=== PATIENT | male | born 1975 | race Caucasian/White ===

== ENCOUNTER 2020-05-30 08:18 | Emergency (ER) | payer BC, SELFPAY ==
[2020-05-30 08:23] VITALS: BP 134/77; PULSE 100; RESP 20; TEMP 37.5; O2SAT 97; BMI 23.3
--- NOTE | 2020-05-30 08:44 | XR_ITS ---
EXAMINATION: XR CHEST CLINICAL INFORMATION: COVID+, shortness of breath COMPARISON: None TECHNIQUE: Portable upright AP x2 views of the chest are obtained. FINDINGS: There are scattered bilateral mid and lower zone groundglass opacities. There is no confluent lobar segmental airspace consolidation or effusion. Heart is within normal size. The vascularity is normal. The hilar and mediastinal contours and bony structures are unremarkable. XR/XR chest 1V IMPRESSION: Bilateral mid and lower zone groundglass opacities. Findings consistent with history COVID.
--- NOTE | 2020-05-30 09:44 | ED_ITS ---
HPI - URI/Sore Throat General Chief Complaint: Upper Respiratory Symptoms Stated Complaint: covid + Time Seen by Provider: 05/30/20 08:43 Source: patient Mode of arrival: ambulatory Limitations: no limitations History of Present Illness HPI Narrative: 45-year-old male presenting to the ED who is recently diagnosed with COVID approximately 3 days ago with persistent fevers up to 104 despite taking Motrin Tylenol every 3 hours alternating between the 2. Reports he has a dry cough and goes into a coughing fit. Denies any headaches, dizziness, neck pain, chest pain, shortness of breath, orthopnea, dyspnea on exertion, lower extremity edema, abdominal pain, nausea/vomiting/diarrhea or constipation or any other symptoms complaints or concerns at this time. Related Data Previous Rx's Medication Instructions Recorded acetaminophen [Tylenol Extra 1,000 mg PO Q6H PRN #14 tab 05/30/20 Strength] azithromycin See Rx Instructions .ROUTE 05/30/20 .COMPLEX #6 tab cefuroxime axetil 500 mg PO BID 7 Days #14 tab 05/30/20 cyclobenzaprine 10 mg PO TID PRN #10 tab 05/30/20 dexamethasone [Decadron] 12 mg PO DAILY #1 tab 05/30/20 ibuprofen 800 mg PO Q8H PRN #14 tab 05/30/20 Allergies Allergy/AdvReac Type Severity Reaction Status Date / Time No Known Allergies Allergy Verified 05/30/20 08:43 Review of Systems Review of Systems: Constitutional : + Fever, + Chills, + fatigue, + Malaise ENT/Mouth : No sore throat, No runny nose Eyes: No Discharge Cardiovascular : No Chest Pain, No SOB Respiratory : + Cough, No Sputum, No Wheezing, No Smoke Exposure, No Dyspnea Gastrointestinal : No Nausea, No Vomiting, No Diarrhea Genitourinary : No irregular bleeding, No Dysuria, No Urinary Frequency, No Hematuria, No Urinary Incontinence, No Urgency, No Flank Pain, Musculoskeletal : + Myalgia Skin : No rash Neuro : No Headache Yes all other systems are reviewed and are negative [facility] Past Medical History Attestation statement: The following information was validated with the patient. Social History Social History Advance Directives: No Advance Directives Information Provided: No Physical Exam Vital Signs: Vital Signs: Last Vital Signs Temp 99.5 F 05/30/20 08:23 Pulse 100 05/30/20 08:23 Resp 20 05/30/20 08:23 BP 134/77 05/30/20 08:23 Pulse Ox 97 05/30/20 08:23 Body Mass Index 23.3 vital signs have been reviewed as normal and appeared to be correct. Blood pressure normal. Heart rate normal. Respiration rate normal. Temperature normal. Oxygen saturation normal. Appearance: Alert. Oriented X3. No acute distress. Head: Normal external exam. Normocephalic. Atraumatic. Eyes: PERRLA. EOMI. Conjunctiva and sclera normal. Eyelids normal. ENT: EAC normal. TM's Normal. Pharynx normal. Uvula midline. Moist mucous membranes. No trismus noted. No drooling noted. No muffled voice noted. Neck: Normal inspection. Neck supple. FROM. No adenopathy. Thyroid Normal. No meningeal signs. CVS: Normal heart rate and rhythm. Heart sound normal. No murmurs noted. Pulses normal throughout. Respiratory: No respiratory distress. Painless inspiration. Breath sounds normal. No wheezes/rales/rhonchi noted. Chest nontender. No accessory muscle usage noted or decreased air movement noted. Back: Full range of motion noted. Skin: Skin warm and dry. Normal skin color. Normal skin turgor. No rashes/lesions/lacerations noted. Extremities: No lower extremity edema. Extremities exhibit normal range of motion. Extremities nontender. Neuro: Oriented X 3. No motor deficit. No sensory deficit. Reflexes normal. Course Course Course Narrative: Patient's oxygen saturation is at 97% on room air all other vitals are within normal limits. Patient is not in any acute respiratory distress or any other distress. Appears well. Chest x-ray revealed ground- glass opacities consistent with COVID pneumonia. Will DC home with antibiotics and instructions to return if any new or worsening symptoms and to monitor the patient's his pulse ox and to follow up with primary care provider. Patient understands agrees the plan. MDM - URI/Sore Throat Medical Records Attestation: I reviewed the patient's medical records. Imaging Data Chest x-ray: Attestation: I personally reviewed and interpreted this imaging study as follows: Radiologist's impression: FINDINGS: There are scattered bilateral mid and lower zone groundglass opacities. There is no confluent lobar segmental airspace consolidation or effusion. Heart is within normal size. The vascularity is normal. The hilar and mediastinal contours and bony structures are unremarkable. XR/XR chest 1V IMPRESSION: Bilateral mid and lower zone groundglass opacities. Findings consistent with history COVID. Discharge Plan Discharge Clinical Impression: Pneumonia due to COVID-19 virus Patient Disposition: Home, Self-Care Instructions: Pneumonia (ED), COVID-19 (Coronavirus Disease 2019) (ED) Additional Instructions: It is very important that you monitor your oxygen saturation normal is 90-100% on room air although you should be at 95-100% if you start to drop under 90% on room air is specially with walking he needs to come back to the emergency department otherwise take your antibiotics as prescribed alternate between Motrin and Tylenol every 3 hours and self isolate return if any new or worsening symptoms. At this time you will be okay for discharge. Please plan for self quarantine for up to 14 days. Do not expose yourself to others. You may not go to work. If testing does come back negative you may return to activities as long as you are no longer having any symptoms for at least 3 days. Please continue to follow cold instructions and wash your hands frequently. You may take Tylenol as directed on the bottle for pain or fever. Patient seen in the emergency department on 05/30/2020 and should be excused from work until negative test results AND until 72 hours without any symptoms AND at least 10 days have passed since symptoms first appeared or since last exposure to COVID-19 positive patient CDC Guidelines for home isolation: - Stay away from others - WEAR A MASK if you are sick AND STAY HOME - Cover your mouth and nose with a tissue when you cough or sneeze. Dispose of tissues in a lined trash can and wash your hands immediately with soap and water for at least 20 seconds. If soap and water are not available, clean hands with alcohol-based hand custom van converter that contains at least 60% alcohol. - Clean your hands often with soap and water for at least 20 seconds - Avoid touching your eyes, nose and mouth with unwashed hands - Do not share dishes, drinking glasses, cups, eating utensils, towels, or bedding with other people in your home. After using these items, wash them thoroughly with soap and water or put in the heating and blending supervisor. - Clean high-touch surfaces in your isolation area ( sick room and bathroom) every day; let a caregiver clean and disinfect high-touch surfaces in other areas of the home. Clean the area or item with soap and water or another detergent if it is dirty. Then, use a household disinfectant. - Limit contact with pets and animals: If you must care for a pet, wash your hands before and after interacting with them). Prescriptions: New azithromycin 250 mg tablet See Rx Instructions .ROUTE .COMPLEX Qty: 6 RF: 0 cefuroxime axetil 500 mg tablet 500 mg PO BID 7 Days Qty: 14 RF: 0 cyclobenzaprine 10 mg tablet 10 mg PO TID PRN (Reason: muscle spasm) Qty: 10 RF: 0 ibuprofen 800 mg tablet 800 mg PO Q8H PRN (Reason: pain) Qty: 14 RF: 0 dexamethasone [Decadron] 6 mg tablet 12 mg PO DAILY Qty: 1 RF: 0 acetaminophen [Tylenol Extra Strength] 500 mg tablet 1,000 mg PO Q6H PRN (Reason: fever or pain) Qty: 14 RF: 0 Referrals: Physician,None [Primary Care Provider] - 2 days (your pcp) Stand Alone Forms: Work/School Release Print Language: Namibian
== END 2020-05-30 10:31 | disposition home or self-care (01) ==
PROVIDERS: Emergency Provider Emergency Medicine
DX: U07.1 COVID-19 (principal); J12.82 Pneumonia due to coronavirus disease 2019
CPT/HCPCS: 71045; 99283

== ENCOUNTER 2020-07-31 07:25 | Outpatient (REF) | payer BC, SELFPAY ==
--- NOTE | ~2020-07-31 | XR_ITS ---
EXAMINATION: XR HAND, RIGHT CLINICAL INFORMATION: Personal history of colon 19 COMPARISON: None TECHNIQUE: PA, lateral, and oblique views of the right hand. FINDINGS: The bones and soft tissues are normal. No fracture. Alignment is anatomic. Joint spaces are maintained. No erosions or soft tissue calcifications. XR/XR hand RT min 3V IMPRESSION: Normal right hand.
--- NOTE | ~2020-07-31 | XR_ITS ---
EXAMINATION: XR KNEE, LEFT CLINICAL INFORMATION: Personal history of colon 19 COMPARISON: None TECHNIQUE: Four views of the left knee. FINDINGS: Trace joint effusion. The bones joints and soft tissues are otherwise normal. XR/XR knee LT 2V IMPRESSION: Trace joint effusion
--- NOTE | ~2020-07-31 | XR_ITS ---
EXAMINATION: XR CHEST CLINICAL INFORMATION: Personal history of Covid 19. COMPARISON: Prior chest May 2020 TECHNIQUE: 2 views of the chest were obtained. FINDINGS: No significant abnormality is noted involving the heart, lungs, mediastinum, bony thorax or soft tissues. XR/XR chest 2V IMPRESSION: No acute disease. The previously noted above opacities have cleared
[2020-07-31 11:22] LABS: MANUAL DIFF FLAG NO
[2020-07-31 11:38] LABS: Basophils Absolute Auto 0.1 X10*3/uL (0.0-0.2); Basophils Percent Auto 1.2 % (0-2); Eosinophils Absolute Auto 0.3 X10*3/uL (0.0-0.4); Eosinophils Percent Auto 3.9 % (0-4); Hematocrit 44.1 % (42-52); Hemoglobin 15.5 g/dl (14.0-18.0); Imm Gran Abs Auto 0.02 X10*3/uL (0.00-0.03); Imm Gran Pct Auto 0.3 % (0.0-0.4); Lymphocytes Absolute Auto 2.6 X10*3/uL (1.2-4.9); Lymphocytes Percent Auto 37.5 % (20-40); Mean Corpuscular HGB Conc 35.1 g/dl (31.0-36.0); Mean Corpuscular Hemoglobin 35.4 pg (27.0-33.0); Mean Corpuscular Volume 100.7 fL (80-98); Mean Platelet Volume 10.4 fL (9.4-12.4); Monocytes Absolute Auto 0.8 X10*3/uL (0.1-1.2); Monocytes Percent Auto 10.9 % (2-11); Neutrophils Absolute Auto 3.2 X10*3/uL (2.0-8.3); Neutrophils Percent Auto 46.2 % (45-73); Platelet Count 207 X10*3/uL (160-400); Red Blood Count 4.38 X10*6/uL (4.60-5.80); White Blood Count 6.9 X10*3/uL (4.8-10.8)
[2020-07-31 12:21] LABS: Alanine Aminotransferase 42 U/L (0-40); Albumin Level 4.5 g/dL (3.5-5.0); Alkaline Phosphatase 104 U/L (39-117); Anion Gap 12 (12-20); Aspartate Amino Transferase 28 U/L (5-37); Bilirubin Direct 0.4 mg/dL (0.0-0.5); Blood Urea Nitrogen 11 mg/dL (9-16); Carbon Dioxide 33 mmol/L (22-29); Chloride 100 mmol/L (96-108); Cholesterol 164 mg/dL; Estimated Glomerular Filt Rate > 60; Glucose Fasting 83 mg/dL (60-99); HDL Cholesterol 64 mg/dL; LDL Cholesterol Calculated 77 mg/dl; Potassium 3.6 mmol/L (3.3-5.1); Sodium 141 mmol/L (135-145); Total Protein 7.1 g/dL (6.5-8.0); Triglycerides 116 mg/dL
[2020-07-31 12:24] LABS: SARS COV2 IgG Positive (Negative)
== END 2020-07-31 07:26 | disposition home or self-care (01) ==
LOC: HO.HMGCLDS 07:25
PROVIDERS: PCP Internal Medicine; Visit Provider Internal Medicine
DX: Z00.01 Encounter for general adult medical examination with abnormal findings (principal); R03.0 Elevated blood-pressure reading, without diagnosis of hypertension; M19.041 Primary osteoarthritis, right hand; M25.562 Pain in left knee; Z72.0 Tobacco use; Z86.16 Personal history of COVID-19
CPT/HCPCS: 36415; 71046; 73130; 73560; 80048; 80061; 80076; 85025; 86769

== ENCOUNTER 2023-08-05 08:42 | Outpatient (AMB) | payer BC, SELFPAY ==
--- NOTE | 2023-08-05 08:44 | A.OFFPC_ITS ---
Vital Signs 08/05/23 08:48 Height 6 ft Weight 163 lb 4 oz BMI 22.1 BP 126/72 Blood Pressure Location Rt brachial Position Sitting Pulse 62 Pulse Source Pulse Oximeter Pulse Oximetry (%) 98 Oxygen Delivery Method Room Air Intake Visit Reasons: Annual PE Allergies No Known Allergies Allergy (Verified 08/05/23 08:45) Medication List - Last Reconciled 08/05/23 by Faye Avelar MD atenolol 25 mg PO DAILY 90 days Tobacco use date assessed: 08/05/23 Dental Screening Dental Screen Date: 08/05/23 Did you have a dental visit in the last 12 months?: No Did you have a dental problem in the last 6 months where you did not have access to dental care?: No Was dental information given to patient?: Patient has dentist HPI Annual PE HPI Details Patient is a 48-year-old gentleman came in today for physical exam , last time seen was November of 2020 He is taking atenolol 25 mg however he does not know who is refilling his medication. Use complaining of weight loss of 28 lb over 2 years Feels tired and fatigued He is due for colonoscopy but does not want to do it, explained the difference between Cologuard and colonoscopy Patient would like to have a Cologuard done. Lab order placed to be done fasting Meanwhile continue atenolol 25 mg On physical examination patient have a cardiac murmur, that he tells me that he has always had it Since he was a kid. But does not know why, there is no cardiac workup as well for years. I have ordered echocardiogram for the patient Regular follow-up in 6 months physical exam 1 year, after labs and echocardiogram we will set up a time to go over reports. [facility] Social History Housing: House Alcohol intake: current Alcohol intake frequency: a few times a month Patient Tobacco Use Status: Former Tobacco user (quit 1.5 years ago ) Tobacco use type: Cigarette Current occupational status: employed Cognitive needs: No Hearing needs: No Vision needs: Yes Questionnaire PHQ-9 Over the last 2 weeks, how often have you been bothered by any of the following problems? 1. Little interest or pleasure in doing things: not at all 2. Feeling down, depressed, or hopeless: not at all 3. Trouble falling or staying asleep, or sleeping too much: not at all 4. Feeling tired or having little energy: not at all 5. Poor appetite or overeating: not at all 6. Feeling bad about yourself - or that you are a failure or have let yourself or your family down: not at all 7. Trouble concentrating on things, such as reading the newspaper or watching television: not at all 8. Moving or speaking so slowly that other people could have noticed. Or the opposite - being so fidgety or restless that you have been moving around a lot more than usual: not at all 9. Thoughts that you would be better off or of hurting yourself in some way: not at all Total score: 0 Depression Screening Interpretation: Negative Depression Screening Done: Yes Source: Developed by Drs. Waqas Rutledge, Carol Colon, Oren Brown and colleagues, with an educational kayla from [employer]. Thrive Questionnaire Date Thrive assessed: 12/05/20 Review of Systems Const Denies chills, Denies fever(s) and Denies headache(s) Eyes Denies blurry vision ENT Denies headache(s), Denies nasal discharge, Denies nasal obstruction, Denies odynophagia and Denies sinus pain Card Denies chest pain at rest and Denies chest pain with activity Resp Denies cough and Denies hemoptysis GI Denies diarrhea, Denies odynophagia, Denies vomiting and Denies hematemesis Reports as per HPI Musc Denies abnormal gait Skin/Breast Reports as per HPI Neuro Denies Neuro-related abnormal movements, Denies Abnormal speech present, Denies abnormal gait, Denies headache(s) and Denies Sensory deficit (Neuro) Psych Denies mood swings and Denies paranoia Endo Reports as per HPI Juanpablo/Lymph Reports as per HPI Aller/Immun Reports as per HPI Physical exam (Primary Care) Vital Signs: Last Vital Signs Pulse 62 08/05/23 08:48 BP 126/72 08/05/23 08:48 Pulse Ox 98 08/05/23 08:48 Oxygen Delivery Method Room Air 08/05/23 08:48 BMI result Body Mass Index 22.1 Tobacco/Smoking Status: Tobacco use Status Tobacco use date assessed 08/05/23 08/05/23 08:50 Patient Tobacco Use Status Former Tobacco user (quit 1. 08/05/23 08:50 5 years ago ) Tobacco use type Cigarette 08/05/23 08:50 Depression Screening Interpretation: Negative Thrive Assessment: Date of Thrive Assessment Date Thrive assessed 12/05/20 08/05/23 08:50 Const General: cooperative, comfortable and no acute distress Orientation/consciousness: patient oriented x3 HENMT Head: Yes normocephalic and Yes atraumatic Eyes General: appearance normal, both eyes and all related structures Pupils: Equal, round and reactive pupils present EOM: EOMs intact bilaterally Neck Neck: Yes supple and No lymphadenopathy Thyroid: Thyroid normal Lymphatic: no lymphadenopathy noted Resp Effort & Inspection: normal respiratory effort and able to speak in complete sentences Auscultation: clear to auscultation bilaterally Cardio Other: Cardiac murmur present Heart sounds: S1 normal heart sound present and S2 normal heart sound present GI Palpation (GI): Soft to palpation and nontender Auscultation: normal bowel sounds General: Yes no CVA tenderness Back/Spine/Pelvis Back: no CVA tenderness Skin General skin exam: elasticity normal and turgor normal Neuro General: patient oriented x3 and gait normal Cranial nerves: Yes Equal, round and reactive pupils present Speech: No Abnormal speech present Sensory Exam: No Sensory deficit (Neuro) Coordination: tandem gait normal and Romberg test negative Extrem General: Yes normal exam except as noted and No edema Assessment and Plan Assessment & Plan (1) Encounter for general adult medical examination with abnormal findings: Code(s): Z00.01 - Encounter for general adult medical examination with abnormal findings (2) Hypertension, essential: Code(s): I10 - Essential (primary) hypertension (3) Tired: Code(s): R53.83 - Other fatigue (4) Fatigue: Code(s): R53.83 - Other fatigue Qualifiers: Fatigue type: unspecified Qualified Code(s): R53.83 - Other fatigue (5) Weight loss: Code(s): R63.4 - Abnormal weight loss (6) Cardiac murmur: Code(s): R01.1 - Cardiac murmur, unspecified Plan Patient is a 48-year-old gentleman came in today for physical exam , last time seen was November of 2020 He is taking atenolol 25 mg however he does not know who is refilling his medication. Use complaining of weight loss of 28 lb over 2 years Feels tired and fatigued He is due for colonoscopy but does not want to do it, explained the difference between Cologuard and colonoscopy Patient would like to have a Cologuard done. Lab order placed to be done fasting Meanwhile continue atenolol 25 mg On physical examination patient have a cardiac murmur, that he tells me that he has always had it Since he was a kid. But does not know why, there is no cardiac workup as well for years. I have ordered echocardiogram for the patient Regular follow-up in 6 months physical exam 1 year, after labs and echocardiogram we will set up a time to go over reports. Orders: Orders Comprehensive Thomson. Panel Fast Today I10 - Essential (primary) hypertension, R53.83 - Other fatigue, R63.4 - Abnormal weight loss, Z00.01 - Encounter for general adult medical examination with abnormal findings Vitamin D 25-OH (D2 and D3) Today I10 - Essential (primary) hypertension, R53.83 - Other fatigue, R63.4 - Abnormal weight loss, Z00.01 - Encounter for general adult medical examination with abnormal findings Vitamin B12 Today I10 - Essential (primary) hypertension, R53.83 - Other fatigue, R63.4 - Abnormal weight loss, Z00.01 - Encounter for general adult medical examination with abnormal findings TSH reflex Free T4 Today I10 - Essential (primary) hypertension, R53.83 - Other fatigue, R63.4 - Abnormal weight loss, Z00.01 - Encounter for general adult medical examination with abnormal findings CA echo transthoracic complete Today R01.1 - Cardiac murmur, unspecified Complete Blood Count Auto Diff Today I10 - Essential (primary) hypertension, R53.83 - Other fatigue, R63.4 - Abnormal weight loss, Z00.01 - Encounter for general adult medical examination with abnormal findings Lipid Panel Today I10 - Essential (primary) hypertension, R53.83 - Other fatigue, R63.4 - Abnormal weight loss, Z00.01 - Encounter for general adult medical examination with abnormal findings Ferritin Today I10 - Essential (primary) hypertension, R53.83 - Other fatigue, R63.4 - Abnormal weight loss, Z00.01 - Encounter for general adult medical examination with abnormal findings Folate Today I10 - Essential (primary) hypertension, R53.83 - Other fatigue, R63.4 - Abnormal weight loss, Z00.01 - Encounter for general adult medical examination with abnormal findings Coding Level of Care Code Est Pt Prev Care 40-64y(14101) Diagnoses Encounter for general adult medical examination with abnormal findings Z00.01 Hypertension, essential I10 Tired R53.83 Fatigue, unspecified type R53.83 Fatigue type: unspecified Weight loss R63.4 Cardiac murmur R01.1
[2023-08-05 08:48] VITALS: BP 126/72; PULSE 62; O2SAT 98; BMI 22.1
== END 2023-08-05 09:07 | disposition home or self-care (01) ==
LOC: HO.HMGC 08:42
PROVIDERS: PCP Internal Medicine; Visit Provider Internal Medicine
DX: Z00.01 Encounter for general adult medical examination with abnormal findings (principal); I10 Essential (primary) hypertension; R53.83 Other fatigue; R63.4 Abnormal weight loss; R01.1 Cardiac murmur, unspecified
CPT/HCPCS: 99213; 99396

== ENCOUNTER 2023-08-05 09:08 | Outpatient (REF) | payer BC, SELFPAY ==
[2023-08-05 10:26] LABS: MANUAL DIFF FLAG NO
[2023-08-05 10:33] LABS: Basophils Absolute Auto 0.1 X10*3/uL (0.0-0.2); Basophils Percent Auto 1.3 % (0-2); Eosinophils Absolute Auto 0.4 X10*3/uL (0.0-0.4); Hematocrit 47.2 % (42.0-52.0); Hemoglobin 16.7 g/dl (14.0-18.0); Imm Gran Abs Auto 0.05 X10*3/uL (0.00-0.03); Imm Gran Pct Auto 0.5 % (0.0-0.4); Lymphocytes Absolute Auto 2.6 X10*3/uL (1.2-4.9); Lymphocytes Percent Auto 28.2 % (20-40); Mean Corpuscular HGB Conc 35.4 g/dl (31.0-36.0); Mean Corpuscular Hemoglobin 36.5 pg (27.0-33.0); Mean Corpuscular Volume 103.3 fL (80.0-98.0); Mean Platelet Volume 10.1 fL (9.4-12.4); Monocytes Percent Auto 10.4 % (2-11); Neutrophils Absolute Auto 5.1 x10*3/uL (2.0-8.3); Neutrophils Percent Auto 55.6 % (45-73); Platelet Count 212 X10*3/uL (160-400); Red Blood Count 4.57 X10*6/uL (4.60-5.80); Red Cell Distribution Width 12.9 % (11.0-16.0); White Blood Count 9.2 X10*3/uL (4.8-10.8)
[2023-08-05 11:19] LABS: Alanine Aminotransferase 28 U/L (0-40); Albumin Level 4.1 g/dL (3.5-5.0); Alkaline Phosphatase 113 U/L (39-117); Anion Gap 13 (12-20); Aspartate Amino Transferase 28 U/L (5-37); Bilirubin Total 0.9 mg/dL (0.0-1.0); Blood Urea Nitrogen 11 mg/dL (9-16); Calcium 9.3 mg/dL (8.4-10.2); Carbon Dioxide 29 mmol/L (22-29); Chloride 104 mmol/L (96-108); Cholesterol 157 mg/dL (<200); Estimated Glomerular Filt Rate > 60; Ferritin 154 ng/mL (20-250); Glucose Fasting 84 mg/dL (60-99); HDL Cholesterol 57 mg/dL (>40); LDL Cholesterol Calculated 82 mg/dL (<100); Potassium 4.5 mmol/L (3.3-5.1); Sodium 141 mmol/L (135-145); TSH reflex Free T4 1.33 uIU/mL (0.32-4.0); Triglycerides 92 mg/dL (<150)
[2023-08-05 11:34] LABS: Folate 4.7 ng/mL (> or = 4.0); Vitamin B12 365 pg/mL (200-900)
[2023-08-09 16:44] LABS: Vitamin D 25-OH, D2 <4 ng/mL; Vitamin D 25-OH, D3 15 ng/mL; Vitamin D 25-OH, Total 15 ng/mL (30-100)
== END 2023-08-05 09:09 | disposition home or self-care (01) ==
LOC: HO.HMGCLDS 09:08
PROVIDERS: PCP Internal Medicine; Visit Provider Internal Medicine
DX: Z00.01 Encounter for general adult medical examination with abnormal findings (principal); I10 Essential (primary) hypertension; R53.83 Other fatigue; R63.4 Abnormal weight loss
CPT/HCPCS: 36415; 80053; 80061; 82306; 82607; 82728; 82746; 84443; 85025

== ENCOUNTER → 2023-08-30 15:55 | Outpatient (REF) | payer BC, SELFPAY ==
--- NOTE | 2023-08-30 15:58 | CA_ITS ---
Transthoracic Echocardiogram Patient (Last, First, Middle): Rodo Herrera J Gender: Male Date of : 1975 Age: 48 Procedure Date: 08/30/2023 Procedure Type: Transthoracic Echocardiogram Location: OP Height: 180.34 cm Weight: 77.11 kg BSA: 1.97 m2 Heart Rate: bpm BP: 118 / 66 mmHg Civil Engineer: Referring MD: Faye Avelar MD Ski Top Trimmer: Rony Doherty MD Symptoms: R01.1 - Cardiac murmur, unspecified Study Quality: Excellent ECG Rhythm: Sinus Conclusions: - 1. Normal LV systolic and diastolic function with LVEF of 60 65% 2. Mildly dilated left atrium 3. 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 Normal RV systolic pressure 5. No gross pericardial effusion Findings Left Ventricle Normal left ventricular size, thickness, and systolic function. The visually estimated ejection fraction is between 60-65%. Spectral Doppler is indicative of a normal filling pattern. Right Ventricle Normal right ventricular cavity size and systolic function. Atria The left atrium is mildly dilated. Interatrial shunt cannot be excluded. The right atrium is normal in size. Aortic Valve Normal aortic valve structure and function. There is no aortic valve stenosis. There is mild aortic valve regurgitation. Mitral Valve The mitral valve appears myxomatous. There is moderate anterior and severe posterior mitral leaflet thickening. There is a flail posterior mitral leaflet involving the middle scallop/P2. There is severe mitral valve regurgitation. The mitral regurgitation jet is directed anteriorly. Pulmonic Valve The pulmonic valve is likely normal. There is trace pulmonic valve regurgitation. Tricuspid Valve Normal tricuspid valve structure. There is trace tricuspid valve regurgitation. The right ventricular systolic pressure is normal. The right ventricular systolic pressure is 23 mmHg. Normal right atrial pressure. There is no evidence of pulmonary hypertension. Great Vessels The pulmonary artery was not well visualized. There is no dilatation of the ascending aorta measuring 2.80 cm. Venous The inferior vena cava is normal in size and collapses greater than 50% with inspiration. Pericardium/Pleural There is no evidence of pericardial effusion. Measurements 2D Linear Measurements IVSd: 1.05 0.6-0.9/0.6-1.0 cm LVIDd: 5.36 3.9-5.3/4.2-5.9 cm LVIDd Index: 2.72 2.4-3.2/2.2-3.1 cm/m2 LVIDs: 3.53 2.0-3.6 cm LVPWd: 1.06 0.7-1.1 cm Ao Root: 3.20 2.1-3.5 cm LA Diam: 4.00 2.7-3.8/3.0-4.0 cm LAIDs Index: 2.03 1.5-2.3 cm/m2 LV Mass: 273.36 67-162/88-224 g LV Mass Index: 138.76 43-95/49-115 g/m2 LVOT Diam: 2.20 3.0+(-)1.3 cm Mitral Valve MV Pk E: 1.15 MV PK A: 0.51 MV Decel Time: 339.00 E/A: 2.20 E'Lateral: 12.40 E'Medial: 12.60 E/E' Med: 9.10 E/E' Lat: 9.30 PHT: 99.00 MVA PHT: 2.22 Decel Crook: 3.39 MR Vol - PW Dopp: 69.93 MR VTI: 1.00 MR ERO: 70.00 MR Alias Damion: 0.39 MR RAD: 1.00 Aortic Valve AoV Pk Damion: 2.19 AoV Mn Damion: 1.56 AoV VTI: 0.48 AoV Pk Grad: 19.00 Aov Mn Grad: 12.00 LVOT LVOT Diam: 2.20 LVOT Area: 3.80 Diastolic Function MV Pk E: 1.15 MV Pk A: 0.51 E/A: 2.20 E'Medial: 12.60 E/E' Med: 9.10 E' Laterial: 12.40 E/E' Lat: 9.30 Right Ventricle TAPSE (mm): 35.00 TVS' Damion: 16.00 Tricuspid Valve TR Pk Damion: 2.24 TR Pk Grad: 20.00 RA Press: 3.00 RVSP: 23.00 Great Vessels Aorta Ao Root-2D: 3.20 2.0-3.7 cm Ao Asc: 2.80 2.1-3.4 cm Pulmonary Valve PV Pk Damion: 1.06 Peak PV Grad: 4.00 Updated in Other Vendor System with Status of Final Rony Doherty MD electronically signed on 08/31/2023 1:49:55 PM with status of Final
== END ==
LOC: HO.CARD 15:55
PROVIDERS: PCP Internal Medicine; Visit Provider Internal Medicine
DX: R01.1 Cardiac murmur, unspecified (principal)
CPT/HCPCS: 93306

== ENCOUNTER → 2023-08-30 15:58 | Outpatient (BNV) | payer BC, SELFPAY | PROVIDERS: PCP Internal Medicine; Visit Provider Internal Medicine Cardiovascular Disease | DX: I34.0 Nonrheumatic mitral (valve) insufficiency (principal); I34.1 Nonrheumatic mitral (valve) prolapse | CPT/HCPCS: 93306 ==

== ENCOUNTER 2023-09-01 08:34 | Outpatient (AMB) | payer BC, SELFPAY ==
--- NOTE | 2023-09-01 10:20 | A.OFFPC_ITS ---
Intake Visit Reasons: Discuss Labs/echocardiogram~ [phone] Allergies No Known Allergies Allergy (Verified 09/01/23 10:20) Medication List - Last Reconciled 09/01/23 by Faye Avelar MD atenolol 25 mg PO DAILY 90 days Tobacco use date assessed: 09/01/23 Dental Screening Dental Screen Date: 09/01/23 Did you have a dental visit in the last 12 months?: No Did you have a dental problem in the last 6 months where you did not have access to dental care?: No Was dental information given to patient?: Patient has dentist HPI Discuss Labs/echocardiogram~ [phone] HPI Details Patient is 48-year-old gentleman days a daily medicine conference to go over his echocardiogram report and labs His labs showed normal white count and hemoglobin, kidney functions liver functions are intact Vitamin-D level is low patient will start supplement Vitamin B12 level is in 300s, he can benefit from supplement as well Patient was found to have murmur on physical examination so we did echocardiogram Which showed 1. Normal LV systolic and diastolic func tion with LVEF of 60 65% 2. Mildly dilated left atrium 3. Severe prolapse to partially flail mo st likely P2 scallop with severe eccentric mitral regurgitation 4. Normal RV systolic pressure 5. No gross pericardial effusion Patient has no shortness of breath or chest pain however feel tired and fatigue at times and has lost some weight Report explained to patient, I am booking appointment with [employer] press operator for further management [facility] Social History Housing: House Alcohol intake: current Alcohol intake frequency: a few times a month Patient Tobacco Use Status: Current someday Tobacco user Tobacco use type: Cigarette e-Cigarette/Vaping Use: Never Used Current occupational status: employed Cognitive needs: No Hearing needs: No Vision needs: Yes Questionnaire Thrive Questionnaire Date Thrive assessed: 12/05/20 AUDIT C Alcohol Use Questionnaire (AUDIT-C) 1. How often do you have a drink containing alcohol?: Monthly or less 2. How many drinks containing alcohol do you have on a typical day when you are drinking?: 1 or 2 3. How often do you have six or more drinks on one occasion?: Never Total Score: 1 Score Reviewed/Action Taken: Yes Review of Systems Const Denies chills and Denies fever(s) ENT Denies epistaxis and Denies nasal discharge Card Denies chest pain Resp Denies chest congestion, Denies cough and Denies hemoptysis GI Denies diarrhea and Denies nausea Skin/Breast Denies rash Neuro Reports no additional complaints Psych Reports no additional complaints Endo Reports no additional complaints Physical exam (Primary Care) Tobacco/Smoking Status: Tobacco use Status Tobacco use date assessed 09/01/23 09/01/23 10:21 Patient Tobacco Use Status Current someday Tobacco 09/01/23 10:21 Tobacco use type Cigarette 09/01/23 10:21 e-Cigarette/Vaping Use Never Used 09/01/23 10:21 Thrive Assessment: Date of Thrive Assessment Date Thrive assessed 12/05/20 09/01/23 10:21 Telehealth Telehealth Location of provider rendering services: practice address Location of patient: address on file Patient Identification confirmed using: Name, : Yes Telehealth method: video (attempted) Patient verbally consented to treatment: Yes Patient verbally consented to billing insurance company: Yes Patient informed of any privacy concerns related to visit: Yes Results Reviewed Results Reviewed: Echocardiogram Assessment and Plan Assessment & Plan (1) Mitral valve prolapse determined by imaging: Code(s): I34.1 - Nonrheumatic mitral (valve) prolapse (2) Cardiac murmur: Code(s): R01.1 - Cardiac murmur, unspecified (3) Mitral regurgitation: Code(s): I34.0 - Nonrheumatic mitral (valve) insufficiency Qualifiers: Cardiac valve disease etiology: etiology unspecified Qualified Code(s): I34.0 - Nonrheumatic mitral (valve) insufficiency (4) Atrial enlargement, left: Code(s): I51.7 - Cardiomegaly (5) Vitamin D deficiency: Code(s): E55.9 - Vitamin D deficiency, unspecified (6) Fatigue: Code(s): R53.83 - Other fatigue Qualifiers: Fatigue type: unspecified Qualified Code(s): R53.83 - Other fatigue Plan Patient is 48-year-old gentleman days a daily medicine conference to go over his echocardiogram report and labs His labs showed normal white count and hemoglobin, kidney functions liver functions are intact Vitamin-D level is low patient will start supplement Vitamin B12 level is in 300s, he can benefit from supplement as well Patient was found to have murmur on physical examination so we did echocardiogram Which showed 1. Normal LV systolic and diastolic function with LVEF of 60 65% 2. Mildly dilated left atrium 3. 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 Normal RV systolic pressure 5. No gross pericardial effusion Patient has no shortness of breath or chest pain however feel tired and fatigue at times and has lost some weight Report explained to patient, I am booking appointment with [employer] operator for further management Orders: Referrals Cardiology Referral I34.0 - Nonrheumatic mitral (valve) insufficiency, I34.1 - Nonrheumatic mitral (valve) prolapse, I51.7 - Cardiomegaly Coding Level of Care Code Tele Est Pt Level 4 (52341) Diagnoses Mitral valve prolapse determined by imaging I34.1 Cardiac murmur R01.1 Mitral valve insufficiency, unspecified etiology I34.0 Cardiac valve disease etiology: etiology unspecified Atrial enlargement, left I51.7 Vitamin D deficiency E55.9 Fatigue, unspecified type R53.83 Fatigue type: unspecified Comment 30 minutes spent care of this patient imaging review discussing with patient, coordination
== END 2023-09-01 11:57 | disposition home or self-care (01) ==
PROVIDERS: PCP Internal Medicine; Visit Provider Internal Medicine
DX: I34.1 Nonrheumatic mitral (valve) prolapse (principal); R01.1 Cardiac murmur, unspecified; I34.0 Nonrheumatic mitral (valve) insufficiency; I51.7 Cardiomegaly; E55.9 Vitamin D deficiency, unspecified; R53.83 Other fatigue
CPT/HCPCS: 99214

== ENCOUNTER 2023-09-07 14:37 | Outpatient (AMB) | payer BC, SELFPAY ==
[2023-09-07 14:38] VITALS: BP 110/70; PULSE 60; BMI 22.1
--- NOTE | 2023-09-07 14:38 | MHC.OFFVIS ---
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/ MVP/cardiomegaley Intake Note: New patient dx MVP and cardiomegaley feeling good Dental Mechanic Required: No Allergies No Known Allergies Allergy (Verified 09/01/23 10:20) Medication List - Last Reconciled 09/07/23 by Rony Doherty MD atenolol 25 mg PO DAILY 90 days cholecalciferol (vitamin D3) 25 mcg PO DAILY HPI HPI Comments History of Present Illness Details Thank you for referring Rodo in cardiology consultation today for recently detected murmur on general physical exam and subsequent echocardiogram showing severe to partially flail posterior mitral leaflet with severe mitral regurgitation. Patient is referred here for management of this. Patient says over the last many weeks he has been having symptoms of fatigue with exertion. He felt his symptoms were because of his over working and many hours working in [email or web address] company. He denies any symptoms of shortness of breath, orthopnea, PND, leg edema. He started taking atenolol again over the last 2 weeks with the hopes of helping his symptoms. However he continues to have symptoms. He denies any prolonged palpitation irregular heartbeat. No lightheadedness, syncope. He said he had a murmur as a child and had echocardiogram frequently as a child and at age of 12 this was stopped. However since then he has not had any recurrent echocardiogram. He has had annual physical exams and over the last 3 years he had no murmur except for this physical exam very was noted to have significant murmur. He is trying to quit smoking. He is prior history of hypertension although he had become normotensive and he had brought himself off atenolol therapy. His blood pressure remained normal. [facility] Medical History (Updated 09/07/23 @ 15:24 by Rony Doherty MD) Severe mitral regurgitation Family History Father No problems noted. Mother No problems noted. Social History Housing: House Alcohol intake: current Alcohol intake frequency: a few times a month Patient Tobacco Use Status: Current someday Tobacco user Tobacco use type: Cigarette e-Cigarette/Vaping Use: Never Used Current occupational status: employed Cognitive needs: No Hearing needs: No Vision needs: Yes Review of Systems Const Denies chills, Denies daytime sleepiness, Denies fatigue, Denies fever(s), Denies frequent falls, Denies poor appetite, Denies snoring, Denies stops breathing during sleep, Denies weakness, Denies weight gain and Denies weight loss Eyes Denies loss of vision ENT Denies dizziness and Denies hearing loss Card Denies chest pain, Denies claudication, Denies leg edema, Denies lightheadedness, Denies palpitations, Denies dyspnea, Denies dyspnea on exertion and Denies orthopnea Resp Denies cough, Denies excessive phlegm production, Denies dyspnea, Denies dyspnea on exertion, Denies snoring and Denies wheezing GI Denies abdominal pain, Denies hematochezia, Denies change in bowel habits, Denies nausea and Denies vomiting Denies dysuria and Denies urinary frequency Musc Denies arthralgias, Denies muscle weakness, Denies numbness and Denies other (frequent falls) Skin/Breast Denies nail changes and Denies rash Neuro Denies Abnormal speech present, Denies dizziness, Denies frequent falls, Denies loss of vision, Denies memory loss, Denies numbness and Denies weakness Psych Denies depression and Denies memory loss Endo Denies fatigue and Denies palpitations Juanpablo/Lymph Reports easy bruising and Reports other (anemia) Aller/Immun Denies wheezing Physical Exam Vital Signs: Last Vital Signs Pulse 60 09/07/23 14:38 BP 110/70 09/07/23 14:38 BMI result Body Mass Index 22.1 Const General: cooperative, comfortable, no acute distress, alert, awake and Physically active Nutritional Appearance: average body habitus and well nourished Orientation/consciousness: patient oriented x3 Limitations: no limitations HEENT Head: Yes normocephalic and Yes atraumatic Neck Neck: Yes trachea midline, Yes supple and Yes no JVD Resp Effort & Inspection: normal respiratory effort Auscultation: clear to auscultation bilaterally Cardio Jugular venous distension: no JVD Palpation: abnormal PMI displaced PMI Rate: regular rate Rhythm: regular rhythm Heart sounds: S1 normal heart sound present, S2 normal heart sound present, no click, no gallops and Murmur heart sound present systolic holo, at the apex and other (Radiating all over the precordium) Peripheral pulses: Peripheral pulses 2+ throughout GI Auscultation: normal bowel sounds Skin General skin exam: no rashes or lesions noted Neuro General: patient oriented x3 and no focal motor deficits Speech: No Abnormal speech present Extrem General: Yes no clubbing, cyanosis or edema Psych Affect: Anxious affect present Office Procedures EKG Details: EKG shows normal sinus rhythm with voltage criteria for LVH otherwise normal EKG 13046-[id number], Complete Assessment & Plan Assessment & Plan (1) Severe mitral regurgitation: Code(s): I34.0 - Nonrheumatic mitral (valve) insufficiency Plan: Severe mitral regurgitation secondary to primary pathology of the mitral valve repair secondary to mitral valve prolapse with partially flail posterior mitral leaflet most likely middle scallop. However this needs to be defined better by a transesophageal echocardiogram. He is having symptomatic mitral regurgitation given his symptoms of fatigue. Explain the pathophysiology of mitral regurgitation as well as pathology of mitral valve prolapse in details to the patient. Symptoms of fatigue related to reduced forward stroke volume in patients with severe mitral regurgitation. This was discussed with him. I have advised him to further evaluate his anatomy with transesophageal echocardiogram. Discussed with him the risks, benefits, alternatives to the procedure. He showed understanding and agreement. He will then follow-up with a cardiac catheterization with evaluation of coronary anatomy as well as hemodynamics. Also discussed with him about risks, benefits, alternatives to the procedure. We discussed about the need for mitral valve repair given his symptomatic nature of mitral regurgitation severe mitral regurgitation that is clinically as well as by echocardiogram significant. This mitral valve regurgitation appears to be more of a subacute/recent origin correlating with his symptoms. Meanwhile I would replace his atenolol therapy with vasodilators therapy with valsartan to improve forward stroke volume although I told him that there is no replacement for surgical repair of mitral valve with medical therapy. He is currently skeptical as to undergo open-heart surgery which is understandable. He wants to think about it which is also appropriate. Will follow up in the clinic after above-mentioned test. If he is agreeable I would refer him to a center of excellence for mitral valve repair if his so prefers. Thank you for allowing me to partake in his care Coding Level of Care Code New Pt Level 4 (38376) Diagnoses Severe mitral regurgitation I34.0 CPT Codes EKG - CPT: 47954-[id number], Complete ([id number])
== END 2023-09-07 16:05 | disposition home or self-care (01) ==
PROVIDERS: PCP Internal Medicine; Visit Provider Internal Medicine Cardiovascular Disease
DX: I34.0 Nonrheumatic mitral (valve) insufficiency (principal)
CPT/HCPCS: 93010; 99214

== ENCOUNTER → 2023-09-07 14:37 | Outpatient (BNVA) | payer BC, SELFPAY | PROVIDERS: PCP Internal Medicine; Visit Provider Internal Medicine Cardiovascular Disease | DX: I34.0 Nonrheumatic mitral (valve) insufficiency (principal) | CPT/HCPCS: 93005 ==

== ENCOUNTER 2023-09-29 07:06 | Outpatient (AMB) | payer BC, SELFPAY ==
--- NOTE | 2023-09-29 10:03 | MHC.PC.OV ---
Intake Visit Reasons: FMLA~ [phone] Allergies No Known Allergies Allergy (Verified 09/01/23 10:20) Medication List - Last Reconciled 09/29/23 by Faye Avelar MD cholecalciferol (vitamin D3) 25 mcg PO DAILY valsartan 40 mg PO DAILY Tobacco use date assessed: 09/01/23 Dental Screening Dental Screen Date: 09/01/23 HPI FMLA~ [phone] HPI Details Patient is 48-year-old gentleman this is a telemedicine video conference Patient need an FMLA paperwork filled Recently on physical examination he was found to have cardiac murmur Patient verbalized to having that murmur all his life However there was no recent echocardiogram so echocardiogram was ordered That showed severe mitral regurgitation Patient had a consultation with tours hostess and then eventually was sent over to [facility] for management His [facility] Medical History Severe mitral regurgitation Family History Father No problems noted. Mother No problems noted. Social History Housing: House Alcohol intake: current Alcohol intake frequency: a few times a month Patient Tobacco Use Status: Current someday Tobacco user Tobacco use type: Cigarette e-Cigarette/Vaping Use: Never Used Current occupational status: employed Cognitive needs: No Hearing needs: No Vision needs: Yes Questionnaire Thrive Questionnaire Date Thrive assessed: 12/05/20 Review of Systems Const Denies chills and Denies fever(s) ENT Denies epistaxis and Denies nasal discharge Card Denies chest pain Resp Denies chest congestion, Denies cough and Denies hemoptysis GI Denies diarrhea and Denies nausea Skin/Breast Denies rash Neuro Reports no additional complaints Psych Reports no additional complaints Endo Reports no additional complaints Physical exam (Primary Care) Tobacco/Smoking Status: Tobacco use Status Tobacco use date assessed 09/01/23 09/29/23 10:05 Patient Tobacco Use Status Current someday Tobacco 09/29/23 10:05 Tobacco use type Cigarette 09/29/23 10:05 e-Cigarette/Vaping Use Never Used 09/29/23 10:05 Thrive Assessment: Date of Thrive Assessment Date Thrive assessed 12/05/20 09/29/23 10:05 Telehealth Telehealth Telehealth Platform: [facility] Location of provider rendering services: practice address Location of patient: address on file Patient Identification confirmed using: Name, : Yes Telehealth method: video Patient verbally consented to treatment: Yes Patient verbally consented to billing insurance company: Yes Patient informed of any privacy concerns related to visit: Yes Assessment and Plan Assessment & Plan (1) Severe mitral regurgitation: Code(s): I34.0 - Nonrheumatic mitral (valve) insufficiency (2) Atrial enlargement, left: Code(s): I51.7 - Cardiomegaly (3) Mitral valve prolapse determined by imaging: Code(s): I34.1 - Nonrheumatic mitral (valve) prolapse (4) Fatigue: Code(s): R53.83 - Other fatigue Qualifiers: Fatigue type: unspecified Qualified Code(s): R53.83 - Other fatigue (5) Tired: Code(s): R53.83 - Other fatigue Plan Patient is 48-year-old gentleman this is a telemedicine video conference Patient need an [facility] paperwork filled Recently on physical examination he was found to have cardiac murmur Patient verbalized to having that murmur all his life However there was no recent echocardiogram so echocardiogram was ordered That showed severe mitral regurgitation Patient had a consultation with tours hostess and then eventually was sent over to [facility] for management His blood pressure medication was switched to valsartan 40 mg Patient would like to reduce number of hours he is working every week to 3 days per week He works with [employer] and his work involves sitting down most of the day. Paperwork filled. For 1 year 30 minute spent in care of this patient Coding Level of Care Code Tele Est Pt Level 4 (63957) Diagnoses Severe mitral regurgitation I34.0 Atrial enlargement, left I51.7 Mitral valve prolapse determined by imaging I34.1 Fatigue, unspecified type R53.83 Fatigue type: unspecified Tired R53.83
== END 2023-09-29 11:49 | disposition home or self-care (01) ==
LOC: HO.HMGC 07:06
PROVIDERS: PCP Internal Medicine; Visit Provider Internal Medicine
DX: I34.0 Nonrheumatic mitral (valve) insufficiency (principal); I51.7 Cardiomegaly; I34.1 Nonrheumatic mitral (valve) prolapse; R53.83 Other fatigue
CPT/HCPCS: 99214

== ENCOUNTER 2023-11-02 13:50 | Outpatient (REF) | payer BC, SELFPAY ==
[2023-11-04 17:09] LABS: A. Phagocytphilium DNA,RT-PCR NOT DETECTED (NOT DETECTED); Babesia Microti DNA, RT-PCR NOT DETECTED (NOT DETECTED); Borrelia Miyamotoi,DNA RT-PCR NOT DETECTED (NOT DETECTED); E.Chaffeensis DNA RT-PCR NOT DETECTED (NOT DETECTED); Lyme(Borrelia ssp)DNA RT-PCR NOT DETECTED (NOT DETECTED)
== END 2023-11-02 13:51 | disposition home or self-care (01) ==
LOC: HO.HMGCLDS 13:50
PROVIDERS: PCP Internal Medicine; Visit Provider Nurse Practitioner Family
DX: T14.8XXA Other injury of unspecified body region, initial encounter (principal); W57.XXXA Bitten or stung by nonvenomous insect and other nonvenomous arthropods, initial encounter; Y93.9 Activity, unspecified; Y92.9 Unspecified place or not applicable; Y99.9 Unspecified external cause status
CPT/HCPCS: 36415; 87468; 87469; 87478; 87484; 87798

== ENCOUNTER 2023-11-23 11:00 | Outpatient (AMB) | payer BC, SELFPAY ==
--- NOTE | 2023-11-23 11:00 | A.OFFPC_ITS ---
Intake Visit Reasons: FMLA Paperwork~ [phone] Allergies No Known Allergies Allergy (Verified 11/23/23 11:01) Medication List - Last Reconciled 11/23/23 by Faye Avelar MD cholecalciferol (vitamin D3) 25 mcg PO DAILY valsartan 40 mg PO DAILY Tobacco use date assessed: 11/23/23 Dental Screening Dental Screen Date: 11/23/23 Did you have a dental visit in the last 12 months?: Yes Did you have a dental problem in the last 6 months where you did not have access to dental care?: No Was dental information given to patient?: Patient has dentist HPI FMLA Paperwork~ [phone] HPI Details Patient is a 48-year-old gentlemen who suffers from cardiomyopathy Need FMLA paperwork he says that he need dental work done before he can have his valve replaced For that he needs more time off from work. Patient says that the paperwork should say 24 hours per week And then he can take whatever hours are needed for appointment that day. Paperwork filled again. Also his colonoscopy appointment isn't until next month Patient is very concerned that continued to have bleeding per rectum. I have placed a referral to gastroenterology urgently. Patient will see Dr. Diaz or Dr. Tran. [facility] Medical History Severe mitral regurgitation Family History Father No problems noted. Mother No problems noted. Social History Housing: House Alcohol intake: current Alcohol intake frequency: a few times a month Patient Tobacco Use Status: Current someday Tobacco user Tobacco use type: Cigarette e-Cigarette/Vaping Use: Never Used Current occupational status: employed Cognitive needs: No Hearing needs: No Vision needs: Yes Questionnaire Thrive Questionnaire Date Thrive assessed: 12/05/20 Review of Systems Const Denies chills and Denies fever(s) ENT Denies epistaxis and Denies nasal discharge Card Denies chest pain Resp Denies chest congestion, Denies cough and Denies hemoptysis GI Denies diarrhea and Denies nausea Skin/Breast Denies rash Neuro Reports no additional complaints Psych Reports no additional complaints Endo Reports no additional complaints Physical exam (Primary Care) Tobacco/Smoking Status: Tobacco use Status Tobacco use date assessed 11/23/23 11/23/23 11:01 Patient Tobacco Use Status Current someday Tobacco 11/23/23 11:01 Tobacco use type Cigarette 11/23/23 11:01 e-Cigarette/Vaping Use Never Used 11/23/23 11:01 Thrive Assessment: Date of Thrive Assessment Date Thrive assessed 12/05/20 11/23/23 11:01 Telehealth Telehealth Telehealth Platform: [employer] Location of provider rendering services: practice address Location of patient: address on file Patient Identification confirmed using: Name, : Yes Telehealth method: voice only Patient verbally consented to treatment: Yes Patient verbally consented to billing insurance company: Yes Patient informed of any privacy concerns related to visit: Yes Assessment and Plan Assessment & Plan (1) Severe mitral regurgitation: Code(s): I34.0 - Nonrheumatic mitral (valve) insufficiency (2) Atrial enlargement, left: Code(s): I51.7 - Cardiomegaly (3) Mitral valve prolapse determined by imaging: Code(s): I34.1 - Nonrheumatic mitral (valve) prolapse (4) Rectal bleed: Code(s): K62.5 - Hemorrhage of anus and rectum Plan Patient is a 48-year-old gentlemen who suffers from cardiomyopathy Need FMLA paperwork he says that he need dental work done before he can have his valve replaced For that he needs more time off from work. Patient says that the paperwork should say 24 hours per week And then he can take whatever hours are needed for appointment that day. Paperwork filled again. Also his colonoscopy appointment isn't until next month Patient is very concerned that continued to have bleeding per rectum. I have placed a referral to gastroenterology urgently. Patient will see Dr. Diaz or Dr. Tran. 20 minute spent in care of this patient reviewing chart, talking to patient need, feeling paperwork, coordination of care Orders: Referrals Gastroenterology Referral K62.5 - Hemorrhage of anus and rectum Coding Level of Care Code Tele Est Pt Level 3 (99359) Diagnoses Severe mitral regurgitation I34.0 Atrial enlargement, left I51.7 Mitral valve prolapse determined by imaging I34.1 Rectal bleed K62.5
== END 2023-11-23 11:56 | disposition home or self-care (01) ==
LOC: HO.HMGC 11:00
PROVIDERS: PCP Internal Medicine; Visit Provider Internal Medicine
DX: I34.0 Nonrheumatic mitral (valve) insufficiency (principal); I51.7 Cardiomegaly; I34.1 Nonrheumatic mitral (valve) prolapse; K62.5 Hemorrhage of anus and rectum
CPT/HCPCS: 99442

== ENCOUNTER 2023-11-30 14:50 | Outpatient (REF) | payer BC, SELFPAY ==
[2023-11-30 15:08] LABS: MANUAL DIFF FLAG NO
[2023-11-30 15:48] LABS: Basophils Absolute Auto 0.1 X10*3/uL (0.0-0.2); Basophils Percent Auto 1.2 % (0-2); Eosinophils Absolute Auto 0.2 X10*3/uL (0.0-0.4); Eosinophils Percent Auto 3.6 % (0-4); Hematocrit 47.2 % (42.0-52.0); Imm Gran Abs Auto 0.03 X10*3/uL (0.00-0.03); Imm Gran Pct Auto 0.5 % (0.0-0.4); Lymphocytes Absolute Auto 1.5 X10*3/uL (1.2-4.9); Lymphocytes Percent Auto 22.7 % (20-40); Mean Corpuscular Hemoglobin 37.9 pg (27.0-33.0); Mean Corpuscular Volume 105.4 fL (80.0-98.0); Mean Platelet Volume 10.1 fL (9.4-12.4); Monocytes Absolute Auto 0.8 X10*3/uL (0.1-1.2); Monocytes Percent Auto 11.6 % (2-11); Neutrophils Percent Auto 60.4 % (45-73); Platelet Count 206 X10*3/uL (160-400); Red Blood Count 4.48 X10*6/uL (4.60-5.80); Red Cell Distribution Width 13.4 % (11.0-16.0); White Blood Count 6.6 X10*3/uL (4.8-10.8)
[2023-11-30 16:26] LABS: Alanine Aminotransferase 26 U/L (0-40); Albumin Level 4.3 g/dL (3.5-5.0); Alkaline Phosphatase 119 U/L (39-117); Anion Gap 12 (12-20); Aspartate Amino Transferase 26 U/L (5-37); Bilirubin Direct 0.3 mg/dL (0.0-0.5); Bilirubin Total 0.8 mg/dL (0.0-1.0); Blood Urea Nitrogen 14 mg/dL (9-16); C Reactive Protein 0.11 mg/dL (< or = 0.50); Calcium 9.4 mg/dL (8.4-10.2); Carbon Dioxide 28 mmol/L (22-29); Chloride 104 mmol/L (96-108); Estimated Glomerular Filt Rate > 60; Glucose Random 76 mg/dL (60-115); Iron 173 mcg/dL (45-160); Percent Iron Saturation 51 % (15-50); Potassium 4.2 mmol/L (3.3-5.1); Sodium 140 mmol/L (135-145); Total Iron Binding Capacity 337 mcg/dL (228-428); Total Protein 7.1 g/dL (6.5-8.0); Unsaturated Iron Binding 164 ug/dL
[2023-11-30 16:31] LABS: Erythrocyte Sedimentation Rate 3 MM/HR (0-15)
[2023-11-30 16:44] LABS: Ferritin 92 ng/mL (20-250)
[2023-11-30 16:52] LABS: Folate 3.6 ng/mL (> or = 4.0); Vitamin B12 431 pg/mL (200-900)
[2023-12-01 14:12] LABS: Gliadin Deamidated IgA Ab <1.0 U/mL; Gliadin Deamidated IgG Ab <1.0 U/mL; Transglutaminase Ab IgG <1.0 U/mL; Transglutaminase IgA <1.0 U/mL
[2023-12-01 17:22] LABS: Immunoglobulin A 293 mg/dL (47-310)
[2023-12-08 12:18] LABS: Endomysial IgA Antibody Negative (Negative)
== END 2023-11-30 14:51 | disposition home or self-care (01) ==
LOC: HO.LAB 14:50
PROVIDERS: PCP Internal Medicine; Visit Provider Internal Medicine
DX: R19.7 Diarrhea, unspecified (principal); K62.5 Hemorrhage of anus and rectum; R63.4 Abnormal weight loss
CPT/HCPCS: 36415; 80048; 80076; 82607; 82728; 82746; 82784; 83540; 85025; 85652; 86140; 86231; 86258; 86364

== ENCOUNTER 2023-12-14 08:36 | Outpatient (AMB) | payer BC, SELFPAY ==
--- NOTE | 2023-12-14 08:40 | MHC.PC.OV ---
Vital Signs 12/14/23 08:41 Height 6 ft Weight 153 lb 6 oz BMI 20.8 BP 112/64 Blood Pressure Location Rt brachial Position Sitting Pulse 63 Pulse Source Pulse Oximeter Pulse Oximetry (%) 98 Oxygen Delivery Method Room Air Intake Visit Reasons: FMLA Paperwork~ Allergies No Known Allergies Allergy (Verified 12/14/23 08:43) Medication List - Last Reconciled 12/14/23 by Faye Avelar MD atenolol 25 mg PO DAILY cholecalciferol (vitamin D3) 50 mcg PO DAILY cyanocobalamin (vitamin B-12) (Vitamin B-12) 500 mcg PO DAILY valsartan 40 mg PO DAILY Tobacco use date assessed: 12/14/23 Dental Screening Dental Screen Date: 12/14/23 Did you have a dental visit in the last 12 months?: Yes Did you have a dental problem in the last 6 months where you did not have access to dental care?: No Was dental information given to patient?: Patient has dentist HPI FMLA Paperwork~ HPI Details Patient is a 48-year-old gentlemen who suffers from cardiomyopathy Need FMLA paperwork re done It seems as if patient is feeling too fatigued and short of breath and is not able to continue work I filled a new paperwork for the patient and give him time off for procedure that he might have in January in [place] [facility]. His condition started on 08/05/2023, he is off from work until 08/04/2024 He has appointment coming up for colonoscopy He has been losing weight as well PFSH Medical History HTN (hypertension) Severe mitral regurgitation Family History Father No problems noted. Mother No problems noted. Social History Housing: House Alcohol intake: current Alcohol intake frequency: a few times a month Patient Tobacco Use Status: Current someday Tobacco user Tobacco use type: Cigarette e-Cigarette/Vaping Use: Never Used Current occupational status: employed Cognitive needs: No Hearing needs: No Vision needs: Yes Questionnaire PHQ-9 Over the last 2 weeks, how often have you been bothered by any of the following problems? 1. Little interest or pleasure in doing things: not at all 2. Feeling down, depressed, or hopeless: not at all 3. Trouble falling or staying asleep, or sleeping too much: not at all 4. Feeling tired or having little energy: not at all 5. Poor appetite or overeating: not at all 6. Feeling bad about yourself - or that you are a failure or have let yourself or your family down: not at all 7. Trouble concentrating on things, such as reading the newspaper or watching television: not at all 8. Moving or speaking so slowly that other people could have noticed. Or the opposite - being so fidgety or restless that you have been moving around a lot more than usual: not at all 9. Thoughts that you would be better off or of hurting yourself in some way: not at all Total score: 0 Depression Screening Interpretation: Negative Depression Screening Done: Yes 55010 - PHQ-9 Billing: Yes Source: Developed by Drs. Waqas Rutledge, Carol Colon, Oren Brown and colleagues, with an educational kayla from [employer]. Thrive Questionnaire Date Thrive assessed: 12/14/23 I am a: Patient What is your living situation today?: I have a steady place to live Within the past 12 months, did the food you bought not last and you didn't have the money to get more?: Never true Within the past 12 months, did you worry whether your food would run out before you got money to buy more?: Never true Do you have trouble paying for medicines?: No Do you have trouble getting transportation to medical appointments?: No Do you have trouble paying your heating and electricity bill?: No Do you have trouble taking care of your child, family member or friend?: No Do you have trouble with day-to-day activities such as bathing, preparing meals, shopping, managing finances, etc.?: No Are you currently unemployed and looking for a job?: No Are you interested in more education?: No Please select the resources that you would like help with: None Currently or been in a relationship where the following occur: No concerns reported THRIVE Score: 0 AUDIT C Alcohol Use Questionnaire (AUDIT-C) 1. How often do you have a drink containing alcohol?: Monthly or less 2. How many drinks containing alcohol do you have on a typical day when you are drinking?: 1 or 2 3. How often do you have six or more drinks on one occasion?: Never Total Score: 1 Score Reviewed/Action Taken: Yes SYBIL-7 AMB Questionnaire SYBIL-7 Date SYBIL - 7 assessed: 12/14/23 Feeling nervous, anxious, or on edge: 0 = Not at all Not being able to stop or control worryin = Not at all Worrying too much about different things: 0 = Not at all Trouble relaxin = Not at all Being so restless that it is hard to sit still: 0 = Not at all Becoming easily annoyed or irritable: 0 = Not at all Feeling afraid as if something awful might happen: 0 = Not at all Total SYBIL-7 score (0-4 normal; 5-9 mild; 10-14 moderate; 15-21 severe): 0 Source: Developed by Drs. Waqas Rutledge, Carol Colon, Oren Brown and colleagues, with an educational kayla from [employer]. SYBIL-7 Assessment Billing SYBIL-7 Assessment Tool: SYBIL-7 Assessment 00272 Review of Systems Const Denies chills and Denies fever(s) ENT Denies epistaxis and Denies nasal discharge Card Denies chest pain Resp Denies chest congestion, Denies cough and Denies hemoptysis GI Denies diarrhea and Denies nausea Skin/Breast Denies rash Neuro Reports no additional complaints Psych Reports no additional complaints Endo Reports no additional complaints Physical exam (Primary Care) Vital Signs: Last Vital Signs Pulse 63 12/14/23 08:41 BP 112/64 12/14/23 08:41 Pulse Ox 98 12/14/23 08:41 Oxygen Delivery Method Room Air 12/14/23 08:41 BMI result Body Mass Index 20.8 Tobacco/Smoking Status: Tobacco use Status Tobacco use date assessed 12/14/23 12/14/23 08:44 Patient Tobacco Use Status Current someday Tobacco 12/14/23 08:44 Tobacco use type Cigarette 12/14/23 08:44 e-Cigarette/Vaping Use Never Used 12/14/23 08:44 PHQ-9: PHQ-9 Score PHQ-9: Total score 0 12/14/23 09:03 Depression Screening Interpretation: Negative Thrive Assessment: Date of Thrive Assessment Date Thrive assessed 12/14/23 12/14/23 08:44 Currently or been in a relationship where the following occur: No concerns reported Const General: cooperative, comfortable and no acute distress Orientation/consciousness: patient oriented x3 HENKY Head: Yes normocephalic Eyes General: appearance normal, both eyes and all related structures Neck Neck: Yes supple Resp Effort & Inspection: normal respiratory effort, no cough and no stridor Cardio Rhythm: regular rhythm Heart sounds: S1 normal heart sound present and S2 normal heart sound present Skin General skin exam: turgor normal Neuro General: patient oriented x3, tone normal and moves all extremities Extrem Right lower extremity: no edema Left lower extremity: no edema Assessment and Plan Assessment & Plan (1) Severe mitral regurgitation: Comment: initially been seeing Dr Doherty but was then referred to [facility]. Code(s): I34.0 - Nonrheumatic mitral (valve) insufficiency (2) Atrial enlargement, left: Code(s): I51.7 - Cardiomegaly (3) Mitral valve prolapse determined by imaging: Code(s): I34.1 - Nonrheumatic mitral (valve) prolapse (4) Rectal bleed: Code(s): K62.5 - Hemorrhage of anus and rectum Plan Patient is a 48-year-old gentlemen who suffers from cardiomyopathy Need FMLA paperwork he says that he need dental work done before he can have his valve replaced For that he needs more time off from work. Patient says that the paperwork should say 24 hours per week And then he can take whatever hours are needed for appointment that day. Paperwork filled again. Also his colonoscopy appointment isn't until next month Patient is very concerned that continued to have bleeding per rectum. I have placed a referral to gastroenterology urgently. Patient will see Dr. Diaz or Dr. Tran. 20 minute spent in care of this patient reviewing chart, talking to patient need, feeling paperwork, coordination of care Coding Level of Care Code Est Pt Level 4 (32690) Diagnoses Severe mitral regurgitation I34.0 Atrial enlargement, left I51.7 Mitral valve prolapse determined by imaging I34.1 Rectal bleed K62.5 Additional Codes SYBIL-7 Assessment Billing - SYBIL-7 Assessment Tool: SYBIL-7 Assessment 06485 ([id number])
[2023-12-14 08:41] VITALS: BP 112/64; PULSE 63; O2SAT 98; BMI 20.8
== END 2023-12-14 09:33 | disposition home or self-care (01) ==
PROVIDERS: PCP Internal Medicine; Visit Provider Internal Medicine
DX: I34.0 Nonrheumatic mitral (valve) insufficiency (principal); I51.7 Cardiomegaly; I34.1 Nonrheumatic mitral (valve) prolapse; K62.5 Hemorrhage of anus and rectum
CPT/HCPCS: 99214

== ENCOUNTER 2023-12-15 12:33 | Day surgery (SDC) | payer BC, SELFPAY ==
[2023-12-13 08:10] VITALS: BMI 21.6
--- NOTE | 2023-12-14 09:54 | P.CONAN_ITS ---
Documented by User: Meg Paulino NP 12/14/23 11:16 HPI - Anesthesia Eval Consult details Narrative: 48yo M for Colonoscopy Severe Mitral regurg follows by [facility]. Optimized to proceed with colonoscopy. Asymptomatic with high activity. Case reviewed with Dr Mike MORATAYA Active Problems Active Problems: All Active Problems Rectal bleed (Acute) Colon cancer screening (Acute) Tick bite (Acute) Vitamin D deficiency (Acute) Atrial enlargement, left (Acute) Mitral regurgitation (Acute) Mitral valve prolapse determined by imaging (Acute) Cardiac murmur (Acute) Weight loss (Acute) Fatigue (Acute) Tired (Acute) Abnormal CBC measurement (Acute) Hypertension, essential (Acute) Tobacco abuse (Acute) Encounter for general adult medical examination with abnormal findings (Acute) History of COVID-19 (Acute) Knee pain, left (Acute) Osteoarthritis of hand, right (Acute) Prehypertension (Acute) COVID-19 (Acute) Pneumonia due to COVID-19 virus (Acute) Severe mitral regurgitation (Acute) Past Medical History Medical History HTN (hypertension) Severe mitral regurgitation Family History Family History Father No problems noted. Mother No problems noted. Social History Social History Housing: House Alcohol intake: current Alcohol intake frequency: a few times a month Patient Tobacco Use Status: Current everyday Tobacco user Tobacco use type: Cigarette Cigarettes Per Day: 6 e-Cigarette/Vaping Use: Never Used Date Education Initiated: 12/15/23 Use of substances other than those prescribed or required for medical reasons: No Advance Directives: No Advance Directives Information Provided: Yes Current occupational status: employed Cognitive needs: No Hearing needs: No Vision needs: Yes Meds Allergies Allergy/AdvReac Type Severity Reaction Status Date / Time No Known Allergies Allergy Verified 12/15/23 12:54 Home Medications ?Medication ?Instructions ?Recorded ?Confirmed ?Last Taken ?Type cholecalciferol (vitamin D3) 25 50 mcg PO DAILY 09/07/23 12/14/23 Unknown History mcg (1,000 unit) capsule atenolol 25 mg tablet 25 mg PO DAILY 12/13/23 12/14/23 Unknown History cyanocobalamin (vitamin B-12) 500 500 mcg PO DAILY 12/13/23 12/14/23 Unknown History mcg lozenges (Vitamin B-12) Exam Height,Weight and Vital Signs: Height 5 ft 11 in Weight 70.307 kg Pertinent Lab Results Pertinent Lab Results: Laboratory Tests 11/30/23 15:06 WBC 6.6 Hgb 17.0 Hct 47.2 Plt Count 206 Sodium 140 Potassium 4.2 Chloride 104 Carbon Dioxide 28 BUN 14 Creatinine 1.06 Narrative Narrative: ECHO 08/2023 Conclusions: - 1. Normal LV systolic and diastolic function with LVEF of 60 65% 2. Mildly dilated left atrium 3. 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 Normal RV systolic pressure 5. No gross pericardial effusion EKG 08/2023 normal sinus rhythm with voltage criteria for LVH otherwise normal EKG Assessment and Plan Assessment Anesthesia Assessment: Chart Reviewed Documented by User: Kathie Henderson MD 12/15/23 13:57 PMFSH Past Medical History Medical History HTN (hypertension) Severe mitral regurgitation Family History Family History Father No problems noted. Mother No problems noted. Family history of problems with anesthesia: No Surgical History History of Problems with Anesthesia: No Social History Social History Housing: House Alcohol intake: current Alcohol intake frequency: a few times a month Patient Tobacco Use Status: Current everyday Tobacco user Tobacco use type: Cigarette Cigarettes Per Day: 6 e-Cigarette/Vaping Use: Never Used Date Education Initiated: 12/15/23 Use of substances other than those prescribed or required for medical reasons: No Advance Directives: No Advance Directives Information Provided: Yes Current occupational status: employed Cognitive needs: No Hearing needs: No Vision needs: Yes Meds Allergies Allergy/AdvReac Type Severity Reaction Status Date / Time No Known Allergies Allergy Verified 12/15/23 12:54 Home Medications ?Medication ?Instructions ?Recorded ?Confirmed ?Last Taken ?Type cholecalciferol (vitamin D3) 25 50 mcg PO DAILY 09/07/23 12/14/23 Unknown History mcg (1,000 unit) capsule atenolol 25 mg tablet 25 mg PO DAILY 12/13/23 12/14/23 Unknown History cyanocobalamin (vitamin B-12) 500 500 mcg PO DAILY 12/13/23 12/14/23 Unknown History mcg lozenges (Vitamin B-12) Exam Airway Mallampati Class: II TM Dist: >3cm Neck ROM: Full Assessment and Plan Assessment Anesthesia Assessment: Anesthesia Plan Discussed Final Anesthetic Review Family History of Problems with Anesthesia: No History of Problems with Anesthesia: No NPO: Yes ASA Class: II Final Preanesthetic Review: No Changes in Pt Med Stat, Meds/Allgs Chart Reviewed, Consent Obtained/Reviewed and Anes Risks/Benef Reviewed Patient Risk: Intermediate Procedure Risk: Low Anesthetic Plan Anesthetic Plan: TIVA Disposition: Standard PACU
[2023-12-15 12:55] VITALS: BP 127/67; PULSE 55; RESP 18; TEMP 36.1; O2SAT 100; BMI 20.8
--- NOTE | 2023-12-15 13:11 | PC.NURSE ---
Dr. Diaz at bedside, 24hr update documented on paper.
[2023-12-15] MEDS: Lactated Ringers 1,000 ML 100 ML IVCONT (13:25)
[2023-12-15 15:13] VITALS: BP 144/86; PULSE 66; RESP 18; TEMP 36.6; O2SAT 100
[2023-12-15 15:28] VITALS: BP 136/78; PULSE 63; RESP 18; TEMP 36.9; O2SAT 99
--- NOTE | 2023-12-15 15:47 | PM.OP ---
Brief Operative Note Date of Service: 12/15/23 Pre-op diagnosis: Diarrhea, weight loss, rectal bleeding Post-op diagnosis: other (Colon polyp, R/O Microscopic colitis, Internal/External hemorrhoids) Procedure: Colonoscopy to the cecum and TI with biospies, and hot snare polypectomy x 1 Surgeon: Waqas Diaz MD Anesthesia: MAC Was an Computer System Specialist used for this Procedure?: No Estimated blood loss (mL): 2.0 Pathology: other (A. Ascending colon B. Descending colon C. Sigmoid colon D. Polyp at 20cm E. Rectum) Condition: stable Disposition: PACU
--- NOTE | 2023-12-15 23:17 | OP_ITS ---
DATE OF SERVICE: 12/15/2023 SURGEON: Waqas Diaz MD INDICATIONS: The patient presents for evaluation of persistent and long-standing diarrhea, weight loss, and intermittent bleeding. Full consent has been obtained from him for this, including risks of bleeding and perforation. PREOPERATIVE DIAGNOSIS: POSTOPERATIVE DIAGNOSIS: PROCEDURE PERFORMED: Colonoscopy to the cecum and terminal ileum with multiple biopsies and hot snare polypectomy x1. ESTIMATED BLOOD LOSS: COMPLICATIONS: ANESTHESIA: Monitored anesthesia care. ASSISTANTS: SPECIMENS: PREOPERATIVE DIAGNOSES: Persistent diarrhea, weight loss, and rectal bleeding. POSTOPERATIVE DIAGNOSES: Persistent diarrhea, weight loss, and rectal bleeding, rule out microscopic colitis, colon polyp, internal and external hemorrhoids. DESCRIPTION OF PROCEDURE: The patient was placed in the left lateral decubitus position. The digital rectal exam revealed some external hemorrhoidal tissue. The Olympus video pediatric colonoscope was entered into the rectum and advanced easily to the cecum. Once in the cecum, I did identify normal-appearing cecal pouch with appendiceal orifice and a normal-appearing ileocecal valve. The entire cecum and ileocecal valve appeared normal. I spent considerable time trying to enter his terminal ileum. This was tried both in the left lateral decubitus position and in the supine position. At times, I was able to look into the ileum and see what appeared to be perhaps some edematous and erythematous tissue, but clearly the villi appeared normal. However, I could not enter the ileum and that was hard to say if that was because it was somewhat stenotic at the opening or it was just from technical reasons. I did not see any definitive signs of ileitis or ulceration. At that point, the scope was then slowly withdrawn assessing all mucosal surfaces carefully. Preparation was excellent, although there did appear to be a fair amount of mucus and liquid in the colon which was all irrigated and suctioned away as best as possible. I did not visualize any obvious colitis, but there were areas of some edema but no real erythema and definitely no signs of any ulcerations, friability, or erosions. The only polyp I visualized was at 20 cm. This measured approximately 10 to 12 mm and was removed by hot snare polypectomy and recovered by suction. The polypectomy site appeared clean, without any sign of residual polyp nor bleeding. I did not visualize any sign of other polyps, or angiodysplasia. There was an occasional diverticulum in the sigmoid colon. I did obtain random biopsies in the ascending colon, descending colon, sigmoid colon, and rectum. In the rectum, the scope was retroflexed visualizing fairly prominent internal hemorrhoids as well. The scope was then straightened and withdrawn from the patient. He tolerated the procedure well and was returned to the recovery area in stable condition. IMPRESSION: 1. Rule out microscopic colitis. 2. Colon polyp. 3. Internal and external hemorrhoids. 4. Occasional sigmoid diverticulosis. PLAN: The results of the biopsies will be checked. He has been advised not to use any aspirin and NSAIDs for at least a week, but to try to avoid those long-term as much as possible in the event we are dealing with some type of underlying inflammatory bowel or microscopic colitis. I did advise him to try some [id number] Imodium as he has not yet tried that despite having these symptoms for at least 2 years. He was advised to try to avoid lactose and caffeine as well. I advised him that I will be in touch with him as to the biopsy results by next week and then make further plans regarding other tests and/or treatments based on those results. If the biopsies do show any evidence of microscopic or collagenous colitis, we could then proceed with a trial of budesonide. On the other hand, if these biopsies are all normal, I would then be inclined to obtain further testing such as a CT of his abdomen and pelvis to rule out any type of issue involving his pancreas given the ongoing diarrhea and weight loss. Given that I was not able to really gain entry into the terminal ileum or obtain biopsies, we may want to obtain either a small-bowel series or an MRI with enterography. We may want to obtain further stool testing to rule out pancreatic insufficiency with testing such as elastase, trypsin, and fecal fats. His celiac disease serologies were all negative, but he may need an upper endoscopy with duodenal biopsies to definitively rule out celiac disease if things persist and the workup remains negative. Other blood testing recently has revealed a normal CBC, although his MCV was rather elevated. He did have a low folate level of 3.6 and has already been started on folic acid repletion. His iron studies and B12 levels were normal. His C-reactive protein and sedimentation rate were normal. His albumin was normal. He also has a low vitamin D level in July. We need to get him on some vitamin D as well if he is not already on that. From what I can see in the computer, he has not had a GI panel or ova and parasite testing done as yet, and that may need to be checked as well. I did review all of this with the patient and his in detail today. MD XAVIER Zuniga/JUAN / [id number] MTDD
== END 2023-12-15 15:50 | disposition home or self-care (01) ==
PROVIDERS: PCP Internal Medicine; Visit Provider Internal Medicine
PROC: 0DJD8ZZ Inspection of Lower Intestinal Tract, Via Natural or Artificial Opening Endoscopic (ICD-10-PCS; CPT 45378; principal; 2023-12-15 13:40)
DX: K62.5 Hemorrhage of anus and rectum (principal); R19.7 Diarrhea, unspecified; D12.5 Benign neoplasm of sigmoid colon; K57.30 Diverticulosis of large intestine without perforation or abscess without bleeding; K64.8 Other hemorrhoids; K64.4 Residual hemorrhoidal skin tags; R63.4 Abnormal weight loss; Z68.26 Body mass index [BMI] 26.0-26.9, adult; E55.9 Vitamin D deficiency, unspecified; I10 Essential (primary) hypertension; I34.0 Nonrheumatic mitral (valve) insufficiency; Z79.899 Other long term (current) drug therapy; F17.210 Nicotine dependence, cigarettes, uncomplicated
CPT/HCPCS: 45385; 45380; 88305; J2704

== ENCOUNTER 2024-01-03 11:36 | Outpatient (REF) | payer BC, SELFPAY ==
--- NOTE | ~2024-01-03 | CT_ITS ---
EXAMINATION: CT ABDOMEN AND PELVIS WITH CONTRAST CLINICAL INFORMATION: Chronic diarrhea, abnormal weight loss COMPARISON: None available. TECHNIQUE: Multidetector volumetric images were obtained from the superior aspect of the liver through the pubic symphysis following administration 85 mL of Omnipaque 350 intravenous contrast. Sagittal and coronal reformatted images were obtained on the technologist's workstation. Oral contrast: No This CT examination was performed using dose optimization techniques as appropriate, variously including the following: *Automated exposure control *Adjustment of mA and/or kV according to patient size (this includes techniques or standardized protocols for targeted exams where dose is matched to indication/reason for exam; i.e. extremities or head) *Use of iterative reconstruction technique DLP: 294 mGy-cm FINDINGS: CREDIT UNION EXAMINER: Nonobstructive bowel pattern. L4-L5 and L5-S1 disc disease. LUNG BASES: The visualized lung bases are unremarkable. LIVER, GALLBLADDER, AND BILIARY TREE: The liver is normal in size, shape, and attenuation. No focal hepatic lesion or biliary ductal dilatation is present. Gallbladder fundal thickening, question adenomyomatosis with mild fat stranding. PANCREAS: Unremarkable. SPLEEN: Unremarkable. ADRENAL GLANDS: Unremarkable. KIDNEYS AND URETERS: The kidneys are normal in size, shape, and attenuation. No hydronephrosis, hydroureter, or calculi seen. No perinephric stranding. BLADDER: Decompressed. GASTROINTESTINAL TRACT: Small thick-walled hiatal hernia. Moderately distended stomach with contrast and debris. Question mild duodenal wall thickening. Nonobstructive bowel pattern. Unremarkable terminal ileum and appendix. Moderate fecal retention. ABDOMINAL WALL: No significant hernia is appreciated. LYMPH NODES: No pathologic lymphadenopathy. VASCULAR: Unremarkable. PELVIC VISCERA: Prostate calcifications and phleboliths. OSSEOUS STRUCTURES: L4-L5 and L5-S1 disc space narrowings.. CT/CT abdomen pelvis w IV con IMPRESSION: Question duodenal wall thickening. Question gallbladder adenomyomatosis with mild pericholecystic stranding. Fleischner guidelines were followed.
[2024-01-03] MEDS: Barium Sulfate Oral (Vanilla) 450 ML ORAL.SUSP 900 ML PO (14:41)
[2024-01-03] MEDS: iohexoL 350 MG/ML 75 ML INFUS..BTL IV (14:41)
== END 2024-01-03 11:37 | disposition home or self-care (01) ==
LOC: HO.CT 11:36
PROVIDERS: Visit Provider Internal Medicine
DX: K52.9 Noninfective gastroenteritis and colitis, unspecified (principal); R63.4 Abnormal weight loss
CPT/HCPCS: 74177; Q9967

== ENCOUNTER 2024-01-06 13:53 | Outpatient (AMB) | payer BC, SELFPAY ==
[2024-01-06 13:53] VITALS: BP 126/68; PULSE 58; O2SAT 99; BMI 21.8
--- NOTE | 2024-01-06 13:53 | A.OFFPC_ITS ---
Vital Signs 01/06/24 13:53 Height 5 ft 11 in Weight 156 lb 8 oz BMI 21.8 BP 126/68 Blood Pressure Location Rt brachial Position Sitting Pulse 58 Pulse Source Pulse Oximeter Pulse Oximetry (%) 99 Oxygen Delivery Method Room Air Intake Visit Reasons: FMLA Paperwork Allergies No Known Allergies Allergy (Verified 01/06/24 13:57) Medication List - Last Reconciled 01/06/24 by Faye Avelar MD atenolol 25 mg PO DAILY cholecalciferol (vitamin D3) 50 mcg PO DAILY cyanocobalamin (vitamin B-12) (Vitamin B-12) 500 mcg PO DAILY valsartan 40 mg PO DAILY Tobacco use date assessed: 01/06/24 Dental Screening Dental Screen Date: 01/06/24 Did you have a dental visit in the last 12 months?: Yes Did you have a dental problem in the last 6 months where you did not have access to dental care?: No Was dental information given to patient?: Patient has dentist HPI FMLA Paperwork HPI Details Patient had CTA heart, his cornory blood vessels are not blocked she will be going in for mitral valve repair CT abdomin showed thicking of gartic wall patient will see Dr Bangura for evaluation he has been losing wt he has been having stomach ache after eating he has been started on PPI he came in today for more paper work patient will be going on short term disability paper work filled disbaility dates 08/04/2023 till 08/04/2024 COUNTS INCLUDE 234 BEDS AT THE [facility] Medical History HTN (hypertension) Severe mitral regurgitation Family History Father No problems noted. Mother No problems noted. Social History Housing: House Alcohol intake: current Alcohol intake frequency: a few times a month Patient Tobacco Use Status: Current everyday Tobacco user Tobacco use type: Cigarette Cigarettes Per Day: 6 e-Cigarette/Vaping Use: Never Used Current occupational status: employed Cognitive needs: No Hearing needs: No Vision needs: Yes Questionnaire Thrive Questionnaire Date Thrive assessed: 12/14/23 AUDIT C Alcohol Use Questionnaire (AUDIT-C) 1. How often do you have a drink containing alcohol?: Monthly or less 2. How many drinks containing alcohol do you have on a typical day when you are drinking?: 1 or 2 3. How often do you have six or more drinks on one occasion?: Never Total Score: 1 Score Reviewed/Action Taken: Yes SYBIL-7 AMB Questionnaire SYBIL-7 Date SYBIL - 7 assessed: 12/14/23 Source: Developed by Drs. Waqas Rutledge, Carol Colon, Oren Brown and colleagues, with an educational kayla from [employer]. Review of Systems Const All systems reviewed & are unremarkable except as noted in HPI and below Physical exam (Primary Care) Vital Signs: Last Vital Signs Pulse 58 01/06/24 13:53 BP 126/68 01/06/24 13:53 Pulse Ox 99 01/06/24 13:53 Oxygen Delivery Method Room Air 01/06/24 13:53 BMI result Body Mass Index 21.8 Tobacco/Smoking Status: Tobacco use Status Tobacco use date assessed 01/06/24 01/06/24 13:57 Patient Tobacco Use Status Current everyday Tobacco 01/06/24 13:57 Tobacco use type Cigarette 01/06/24 13:57 e-Cigarette/Vaping Use Never Used 01/06/24 13:57 Thrive Assessment: Date of Thrive Assessment Date Thrive assessed 12/14/23 01/06/24 13:57 Const General: no acute distress Orientation/consciousness: patient oriented x3 Eyes General: appearance normal, both eyes and all related structures Resp Effort & Inspection: normal respiratory effort and able to speak in complete sentences Neuro General: patient oriented x3 Psych Mental Status: mental status grossly normal Assessment and Plan Assessment & Plan (1) Severe mitral regurgitation: Comment: initially been seeing Dr Doherty but was then referred to [facility]. Code(s): I34.0 - Nonrheumatic mitral (valve) insufficiency (2) Atrial enlargement, left: Code(s): I51.7 - Cardiomegaly (3) Mitral valve prolapse determined by imaging: Code(s): I34.1 - Nonrheumatic mitral (valve) prolapse Plan Patient had CTA heart, his cornory blood vessels are not blocked she will be going in for mitral valve repair CT abdomin showed thicking of gartic wall patient will see Dr Bangura for evaluation he has been losing wt he has been having stomach ache after eating he has been started on PPI he came in today for more paper work patient will be going on short term disability paper work filled disbaility dates 08/04/2023 till 08/04/2024 30 minutes spent in care of this patient Coding Level of Care Code Est Pt Level 4 (57732) Diagnoses Severe mitral regurgitation I34.0 Atrial enlargement, left I51.7 Mitral valve prolapse determined by imaging I34.1
== END 2024-01-06 14:29 | disposition home or self-care (01) ==
LOC: HO.HMGC 13:53
PROVIDERS: PCP Internal Medicine; Visit Provider Internal Medicine
DX: I34.0 Nonrheumatic mitral (valve) insufficiency (principal); I51.7 Cardiomegaly; I34.1 Nonrheumatic mitral (valve) prolapse
CPT/HCPCS: 99214

== ENCOUNTER 2024-01-11 15:04 | Outpatient (REF) | payer BC, SELFPAY ==
[2024-01-11 16:36] LABS: Anion Gap 9 (12-20); Blood Urea Nitrogen 13 mg/dL (9-16); Calcium 9.3 mg/dL (8.4-10.2); Carbon Dioxide 33 mmol/L (22-29); Chloride 103 mmol/L (96-108); Estimated Glomerular Filt Rate 60; Glucose Random 99 mg/dL (60-115); Potassium 3.9 mmol/L (3.3-5.1); Sodium 141 mmol/L (135-145)
== END 2024-01-11 15:05 | disposition home or self-care (01) ==
LOC: HO.LAB 15:04
PROVIDERS: PCP Internal Medicine; Visit Provider Internal Medicine
DX: K52.9 Noninfective gastroenteritis and colitis, unspecified (principal); R63.4 Abnormal weight loss
CPT/HCPCS: 36415; 80048

== ENCOUNTER 2024-01-18 10:33 | Day surgery (SDC) | payer BC, SELFPAY ==
[2024-01-16 14:58] VITALS: BMI 21.6
--- NOTE | 2024-01-17 09:57 | HO.ANESPROP2 ---
Documented by User: Meg Paulino NP 01/17/24 09:58 HPI - Anesthesia Eval Consult details Narrative: 48yo M for Upper Endoscopy s/p [place] 11/2023 with TIVA Proir to colo Severe Mitral regurg [place] [facility]. Optimized to proceed with colonoscopy. Asymptomatic with high activity. Case reviewed with Dr Mike MORATAYA Active Problems Active Problems: All Active Problems Rectal bleed (Acute) Colon cancer screening (Acute) Tick bite (Acute) Vitamin D deficiency (Acute) Atrial enlargement, left (Acute) Mitral regurgitation (Acute) Mitral valve prolapse determined by imaging (Acute) Cardiac murmur (Acute) Weight loss (Acute) Fatigue (Acute) Tired (Acute) Abnormal CBC measurement (Acute) Hypertension, essential (Acute) Tobacco abuse (Acute) Encounter for general adult medical examination with abnormal findings (Acute) History of COVID-19 (Acute) Knee pain, left (Acute) Osteoarthritis of hand, right (Acute) Prehypertension (Acute) COVID-19 (Acute) Pneumonia due to COVID-19 virus (Acute) Severe mitral regurgitation (Acute) Past Medical History Medical History HTN (hypertension) Severe mitral regurgitation Family History Family History Father No problems noted. Mother No problems noted. Family history of problems with anesthesia: No Surgical History Surgical History H/O colonoscopy History of Problems with Anesthesia: No Social History Social History Housing: House Alcohol intake: current Alcohol intake frequency: a few times a month Patient Tobacco Use Status: Current everyday Tobacco user Tobacco use type: Cigarette Cigarettes Per Day: 6 e-Cigarette/Vaping Use: Never Used Use of substances other than those prescribed or required for medical reasons: No Are you DNR?: No Advance Directives: No Advance Directives Information Provided: Yes Advance Directives on File: No Recently lost weight without trying: Yes How much weight loss: 14-23 pounds Nutrition Risks: No Nutritional Risk Poor oral hygiene: No Current occupational status: employed Cognitive needs: No Hearing needs: No Vision needs: Yes Meds Allergies Allergy/AdvReac Type Severity Reaction Status Date / Time No Known Allergies Allergy Verified 01/06/24 13:57 Home Medications ?Medication ?Instructions ?Recorded ?Confirmed ?Last Taken ?Type cholecalciferol (vitamin D3) 25 50 mcg PO DAILY 09/07/23 01/16/24 Unknown History mcg (1,000 unit) capsule atenolol 25 mg tablet 25 mg PO DAILY 12/13/23 01/16/24 Unknown History cyanocobalamin (vitamin B-12) 500 500 mcg PO DAILY 12/13/23 01/16/24 Unknown History mcg lozenges (Vitamin B-12) Exam Height,Weight and Vital Signs: Height 5 ft 11 in Weight 70.307 kg Pertinent Lab Results Pertinent Lab Results: Laboratory Tests 11/30/23 01/11/24 15:06 15:22 WBC 6.6 Hgb 17.0 Hct 47.2 Plt Count 206 Sodium 141 Potassium 3.9 Chloride 103 Carbon Dioxide 33 H BUN 13 Creatinine 1.28 Narrative Narrative: ECHO 08/2023 Conclusions: - 1. Normal LV systolic and diastolic function with LVEF of 60 65% 2. Mildly dilated left atrium 3. 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 Normal RV systolic pressure 5. No gross pericardial effusion EKG 08/2023 normal sinus rhythm with voltage criteria for LVH otherwise normal EKG Assessment and Plan Assessment Anesthesia Assessment: Chart Reviewed Final Anesthetic Review Family History of Problems with Anesthesia: No History of Problems with Anesthesia: No Documented by User: Audrey Mckeon MD 01/18/24 11:06 [facility] Past Medical History Medical History HTN (hypertension) Severe mitral regurgitation Family History Family History Father No problems noted. Mother No problems noted. Surgical History Surgical History H/O colonoscopy Social History Social History Housing: House Alcohol intake: current Alcohol intake frequency: a few times a month Patient Tobacco Use Status: Current everyday Tobacco user Tobacco use type: Cigarette Cigarettes Per Day: 6 e-Cigarette/Vaping Use: Never Used Use of substances other than those prescribed or required for medical reasons: No Are you DNR?: No Advance Directives: No Advance Directives Information Provided: Yes Advance Directives on File: No Recently lost weight without trying: Yes How much weight loss: 14-23 pounds Nutrition Risks: No Nutritional Risk Poor oral hygiene: No Current occupational status: employed Cognitive needs: No Hearing needs: No Vision needs: Yes Meds Allergies Allergy/AdvReac Type Severity Reaction Status Date / Time No Known Allergies Allergy Verified 01/06/24 13:57 Home Medications ?Medication ?Instructions ?Recorded ?Confirmed ?Last Taken ?Type cholecalciferol (vitamin D3) 25 50 mcg PO DAILY 09/07/23 01/16/24 Unknown History mcg (1,000 unit) capsule atenolol 25 mg tablet 25 mg PO DAILY 12/13/23 01/16/24 Unknown History cyanocobalamin (vitamin B-12) 500 500 mcg PO DAILY 12/13/23 01/16/24 Unknown History mcg lozenges (Vitamin B-12) Exam Airway Mallampati Class: II TM Dist: >3cm Neck ROM: Full Heart: rrr Lungs: cta Assessment and Plan Assessment Anesthesia Assessment: Anesthesia Plan Discussed Final Anesthetic Review NPO: Yes ASA Class: III Final Preanesthetic Review: No Changes in Pt Med Stat, Meds/Allgs Chart Reviewed, Consent Obtained/Reviewed and Anes Risks/Benef Reviewed Patient Risk: Intermediate Procedure Risk: Low Anesthetic Plan Anesthetic Plan: MAC: Disposition: Standard PACU
[2024-01-18] VITALS (8 sets, daily range): BP systolic 83–110; BP diastolic 40–68; PULSE 52–59; RESP 16–19; TEMP 36.3–36.6; O2SAT 96–100; BMI 21.5
[2024-01-18] MEDS: Lactated Ringers 1,000 ML 50 ML IVCONT (11:06)
--- NOTE | 2024-01-18 12:28 | PM.OP ---
Brief Operative Note Date of Service: 01/18/24 Pre-op diagnosis: Diarrhea, Abnormal CT of UGI tract Post-op diagnosis: other (Gastric and duodenal ulcers, Reflux esophagitis) Procedure: EGD with biopsies Surgeon: Waqas Diaz MD Anesthesia: MAC Was an Center Mgr used for this Procedure?: No Estimated blood loss (mL): 2.0 Pathology: other (A. Descending duodenum B. Gastric antral ulcers C. Gastric antrum D. EG Junction at 39cm) Condition: stable Disposition: PACU
--- NOTE | 2024-01-18 13:33 | OP_ITS ---
DATE OF SERVICE: 01/18/2024 SURGEON: Waqas Diaz MD INDICATIONS: The patient presents for evaluation of persistent diarrhea, weight loss, and abnormal CT of the upper GI tract. Full consent has been obtained from him for this, including risks of bleeding and perforation. PREOPERATIVE DIAGNOSIS: POSTOPERATIVE DIAGNOSIS: PROCEDURE PERFORMED: Esophagogastroduodenoscopy with biopsies. ESTIMATED BLOOD LOSS: COMPLICATIONS: ANESTHESIA: Monitored anesthesia care. ASSISTANTS: SPECIMENS: PREOPERATIVE DIAGNOSES: Diarrhea, weight loss, and abnormal CT of upper gastrointestinal tract. POSTOPERATIVE DIAGNOSES: Diarrhea, weight loss, and abnormal CT of upper gastrointestinal tract, duodenal bulb ulcer, duodenitis, gastric ulcers, gastritis, rule out Helicobacter pylori, rule out celiac disease, reflux esophagitis, small hiatal hernia, rule out Bianchi esophagus. DESCRIPTION OF PROCEDURE: The patient was placed in the left lateral decubitus position. The Olympus video gastroscope was passed in the posterior oropharynx and upper esophagus under direct vision. The scope was passed slowly into the distal esophagus. The gastroesophageal junction appeared at 39 cm. This area was notable for some edema, some irregularity consistent with reflux and possible small areas of Bianchi mucosa, and a single short erosion. There was no mass. The scope easily entered the stomach. There was a small hiatal hernia. The scope was advanced to the pylorus and the duodenum was cannulated to the descending portion. The 2nd and 3rd portions of duodenum appeared normal. Biopsies were obtained from there to rule out celiac disease. The scope was withdrawn back in the duodenal bulb. The duodenal bulb was notable for some duodenitis, as well as an approximately 10 mm ulcer with some eschar, but no sign of any visible vessel nor bleeding. The scope was withdrawn back to the stomach. The gastric antrum had 2 areas of edema with some overlying ulceration on the anterior wall and posterior wall. There was no sign of any bleeding. These appeared to be benign. Multiple biopsies were obtained from them. The gastric antrum itself otherwise appeared normal and biopsies were obtained to rule out H pylori. There was good peristalsis. The scope was retroflexed, visualizing the proximal stomach carefully, which appeared normal, without any sign of mass or ulceration. Scope was straightened and withdrawn back to the esophagus. Multiple biopsies were obtained at the EG junction at 39 cm. Proximal to this, the esophageal mucosa appeared normal. The scope was withdrawn from the patient. He tolerated the procedure well and was returned to recovery area in stable condition. IMPRESSION: 1. Duodenal ulcer with associated duodenitis. 2. Rule out celiac disease. 3. Gastric ulcers. 4. Rule out Helicobacter pylori. 5. Reflux esophagitis, rule out Bianchi esophagus. 6. Small hiatal hernia. PLAN: The results of the biopsy will be checked. He has been given instructions to avoid all aspirin and NSAIDs long-term. He will be started on omeprazole 40 mg daily. He was advised to continue his Lomotil as he does report that it is helping his diarrhea to some degree. I shall order a fasting gastrin level today given these findings and his chronic diarrhea with weight loss. The recent CT scan revealed a normal-appearing pancreas according to the report. He will be seen in followup as well. He has been instructed to drop off the stool specimens that I ordered to assess for pancreatic insufficiency as well. This has all been discussed with his . MD XAVIER Zuniga/JUAN / [id number]
[2024-01-24 15:23] LABS: Gastrin 30 pg/mL (<=100)
== END 2024-01-18 14:05 | disposition home or self-care (01) ==
PROVIDERS: PCP Internal Medicine; Visit Provider Internal Medicine
PROC: 0DJ08ZZ Inspection of Upper Intestinal Tract, Via Natural or Artificial Opening Endoscopic (ICD-10-PCS; CPT 43235; principal; 2024-01-18 11:30)
DX: K52.9 Noninfective gastroenteritis and colitis, unspecified (principal); K26.9 Duodenal ulcer, unspecified as acute or chronic, without hemorrhage or perforation; K29.80 Duodenitis without bleeding; K25.9 Gastric ulcer, unspecified as acute or chronic, without hemorrhage or perforation; K29.70 Gastritis, unspecified, without bleeding; K21.00 Gastro-esophageal reflux disease with esophagitis, without bleeding; R63.4 Abnormal weight loss; Z68.21 Body mass index [BMI] 21.0-21.9, adult; K44.9 Diaphragmatic hernia without obstruction or gangrene; I34.0 Nonrheumatic mitral (valve) insufficiency; I10 Essential (primary) hypertension; Z79.899 Other long term (current) drug therapy; F17.210 Nicotine dependence, cigarettes, uncomplicated
CPT/HCPCS: 43239; 36415; 82941; 88305; 88313; 88342; J1596; J2250; J2704

== ENCOUNTER 2024-01-27 14:01 | Outpatient (REF) | payer BC, SELFPAY ==
[2024-01-27 16:52] LABS: Adenovirus F 40/41 Not Detected (Not Detect.); Astrovirus Not Detected (Not Detect.); Campylobacter Not Detected (Not Detect.); Cryptosporidium Not Detected (Not Detect.); Cyclospora cayetanensis Not Detected (Not Detect.); E. coli EAEC Not Detected (Not Detect.); E. coli EPEC Not Detected (Not Detect.); E. coli ETEC Not Detected (Not Detect.); E. coli STEC Not Detected (Not Detect.); Entamoeba histolytica Not Detected (Not Detect.); Giardia lamblia Not Detected (Not Detect.); Norovirus GI/GII Not Detected (Not Detect.); Plesiomonas shigelloides Not Detected (Not Detect.); Rotavirus A Not Detected (Not Detect.); Salmonella Not Detected (Not Detect.); Sapovirus Not Detected (Not Detect.); Shigella sp./EIEC Not Detected (Not Detect.); Vibrio Not Detected (Not Detect.); Vibrio Cholerae Not Detected (Not Detect.); Yersinia enterocolitica Not Detected (Not Detect.)
[2024-01-27 18:03] LABS: Leukocytes Stool Qualitative NEGATIVE (NEGATIVE)
[2024-02-01 17:18] LABS: Fecal Fat Qualitative Normal (Normal)
[2024-02-04 23:08] LABS: Calprotectin, Fecal 276 mcg/g
[2024-02-07 01:59] LABS: Pancreatic Elastase-1 >500 mcg/g
== END 2024-01-27 14:02 | disposition home or self-care (01) ==
LOC: HO.LNP 14:01
PROVIDERS: Visit Provider Internal Medicine
DX: K52.9 Noninfective gastroenteritis and colitis, unspecified (principal); R63.4 Abnormal weight loss
CPT/HCPCS: 82656; 82705; 83993; 87177; 87209; 87329; 87493; 87507; 89055

== ENCOUNTER 2024-02-03 08:09 | Outpatient (AMB) | payer BC, SELFPAY ==
[2024-02-03 08:10] VITALS: BP 110/58; PULSE 67; O2SAT 97; BMI 22.3
--- NOTE | 2024-02-03 08:10 | MHC.PC.OV ---
Vital Signs 02/03/24 08:10 Height 5 ft 11 in Weight 160 lb 4 oz BMI 22.3 BP 110/58 L Blood Pressure Location Rt brachial Position Sitting Pulse 67 Pulse Source Pulse Oximeter Pulse Oximetry (%) 97 Oxygen Delivery Method Room Air Intake Visit Reasons: 6 month follow up Allergies No Known Allergies Allergy (Verified 02/03/24 08:11) Medication List - Last Reconciled 02/03/24 by Faye Avelar MD atenolol 25 mg PO DAILY cholecalciferol (vitamin D3) 50 mcg PO DAILY cyanocobalamin (vitamin B-12) (Vitamin B-12) 500 mcg PO DAILY valsartan 40 mg PO DAILY Tobacco use date assessed: 02/03/24 Dental Screening Dental Screen Date: 02/03/24 Did you have a dental visit in the last 12 months?: Yes Did you have a dental problem in the last 6 months where you did not have access to dental care?: No Was dental information given to patient?: Patient has dentist HPI 6 month follow up HPI Details Patient is a 48-year-old gentleman who was found to have severe mitral valve regurgitation Causing severe fatigue and inability to work along with shortness a breath And then he started losing weight as well Patient underwent endoscopy and found to have H pylori infection and he was treated accordingly. 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 Patient will need dental clearance and smoking cessation prior. He had a consultation done by Dr. Dave HATCH Notes reviewed Tentative date for mitral valve repair is early April this year His stomach ulcers were most likely secondary to H pylori Patient will have a follow-up appointment with Dr. Diaz to discuss further findings shown on CT scan Tells me that he has appointment coming up next month He has been losing weight, but with treatment of H pylori infection it has stabilized and he was able to gain 4 lb There is no more abdominal pain patient is eating fine there is no problem with the bowels there is no nausea vomiting He needs more paperwork for his job We will be sending them notes with following information Date of disability is 08/05/2023 Recent office visit is today 02/03/2024 Return to work date is 08/04/2024 [facility] Medical History HTN (hypertension) Severe mitral regurgitation Surgical History H/O colonoscopy Family History Father No problems noted. Mother No problems noted. Social History Housing: House Alcohol intake: current Alcohol intake frequency: a few times a month Patient Tobacco Use Status: Current everyday Tobacco user Tobacco use type: Cigarette Cigarettes Per Day: 6 e-Cigarette/Vaping Use: Never Used Current occupational status: employed Cognitive needs: No Hearing needs: No Vision needs: Yes Questionnaire PHQ-9 Over the last 2 weeks, how often have you been bothered by any of the following problems? 1. Little interest or pleasure in doing things: several days 2. Feeling down, depressed, or hopeless: not at all 3. Trouble falling or staying asleep, or sleeping too much: several days 4. Feeling tired or having little energy: several days 5. Poor appetite or overeating: several days 6. Feeling bad about yourself - or that you are a failure or have let yourself or your family down: not at all 7. Trouble concentrating on things, such as reading the newspaper or watching television: not at all 8. Moving or speaking so slowly that other people could have noticed. Or the opposite - being so fidgety or restless that you have been moving around a lot more than usual: not at all 9. Thoughts that you would be better off or of hurting yourself in some way: not at all Total score: 4 Depression Screening Interpretation: Negative Depression Screening Done: Yes 66322 - PHQ-9 Billing: Yes Source: Developed by Drs. Waqas Rutledge, Carol Colon, Oren Brown and colleagues, with an educational kayla from [employer]. Thrive Questionnaire Date Thrive assessed: 02/03/24 I am a: Patient What is your living situation today?: I have a steady place to live Within the past 12 months, did the food you bought not last and you didn't have the money to get more?: Never true Within the past 12 months, did you worry whether your food would run out before you got money to buy more?: Never true Do you have trouble paying for medicines?: No Do you have trouble getting transportation to medical appointments?: No Do you have trouble paying your heating and electricity bill?: No Do you have trouble taking care of your child, family member or friend?: No Do you have trouble with day-to-day activities such as bathing, preparing meals, shopping, managing finances, etc.?: No Are you currently unemployed and looking for a job?: No Are you interested in more education?: No Please select the resources that you would like help with: None Currently or been in a relationship where the following occur: No concerns reported THRIVE Score: 0 AUDIT C Alcohol Use Questionnaire (AUDIT-C) 1. How often do you have a drink containing alcohol?: 2-4 times a month 2. How many drinks containing alcohol do you have on a typical day when you are drinking?: 1 or 2 3. How often do you have six or more drinks on one occasion?: Never Total Score: 2 Score Reviewed/Action Taken: Yes SYBIL-7 AMB Questionnaire SYBIL-7 Date SYBIL - 7 assessed: 02/03/24 Feeling nervous, anxious, or on edge: 0 = Not at all Not being able to stop or control worryin = Not at all Worrying too much about different things: 0 = Not at all Trouble relaxin = Several days Being so restless that it is hard to sit still: 0 = Not at all Becoming easily annoyed or irritable: 0 = Not at all Feeling afraid as if something awful might happen: 0 = Not at all Total SYBIL-7 score (0-4 normal; 5-9 mild; 10-14 moderate; 15-21 severe): 1 Source: Developed by Drs. Waqas Rutledge, Carol Colon, Oren Brown and colleagues, with an educational kayla from [employer]. SYBIL-7 Assessment Billing SYBIL-7 Assessment Tool: SYBIL-7 Assessment 16458 Review of Systems Const Denies chills and Denies fever(s) ENT Denies epistaxis and Denies nasal discharge Card Denies chest pain Resp Denies chest congestion, Denies cough and Denies hemoptysis GI Denies diarrhea and Denies nausea Skin/Breast Denies rash Neuro Reports no additional complaints Psych Reports no additional complaints Endo Reports no additional complaints Physical exam (Primary Care) Vital Signs: Last Vital Signs Pulse 67 02/03/24 08:10 BP 110/58 L 02/03/24 08:10 Pulse Ox 97 02/03/24 08:10 Oxygen Delivery Method Room Air 02/03/24 08:10 BMI result Body Mass Index 22.3 Tobacco/Smoking Status: Tobacco use Status Tobacco use date assessed 02/03/24 02/03/24 08:15 Patient Tobacco Use Status Current everyday Tobacco 02/03/24 08:15 Tobacco use type Cigarette 02/03/24 08:15 e-Cigarette/Vaping Use Never Used 02/03/24 08:15 PHQ-9: PHQ-9 Score PHQ-9: Total score 4 02/03/24 08:15 Depression Screening Interpretation: Negative Thrive Assessment: Date of Thrive Assessment Date Thrive assessed 12/14/23 02/03/24 08:15 Currently or been in a relationship where the following occur: No concerns reported Const General: cooperative, comfortable and no acute distress Orientation/consciousness: patient oriented x3 HENMT Head: Yes normocephalic Eyes General: appearance normal, both eyes and all related structures Neck Neck: Yes supple Resp Effort & Inspection: normal respiratory effort, no cough and no stridor Cardio Other: Murmur is clearly audible Rhythm: regular rhythm Heart sounds: S1 normal heart sound present and S2 normal heart sound present Skin General skin exam: turgor normal Neuro General: patient oriented x3, tone normal and moves all extremities Extrem Right lower extremity: no edema Left lower extremity: no edema Assessment and Plan Assessment & Plan (1) Severe mitral regurgitation: Comment: initially been seeing Dr Doherty but was then referred to [facility] [place] [place]. Code(s): I34.0 - Nonrheumatic mitral (valve) insufficiency (2) Atrial enlargement, left: Code(s): I51.7 - Cardiomegaly (3) Mitral valve prolapse determined by imaging: Code(s): I34.1 - Nonrheumatic mitral (valve) prolapse (4) Peptic ulcer: Code(s): K27.9 - Peptic ulcer, site unspecified, unspecified as acute or chronic, without hemorrhage or perforation (5) Celiac artery stenosis: Code(s): I77.1 - Stricture of artery Plan Patient is a 48-year-old gentleman who was found to have severe mitral valve regurgitation Causing severe fatigue and inability to work along with shortness a breath And then he started losing weight as well Patient underwent endoscopy and found to have H pylori infection and he was treated accordingly. 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 Patient will need dental clearance and smoking cessation prior. He had a consultation done by Dr. Dave HATCH Notes reviewed Tentative date for mitral valve repair is early April this year His stomach ulcers were most likely secondary to H pylori Patient will have a follow-up appointment with Dr. Diaz to discuss further findings shown on CT scan Tells me that he has appointment coming up next month He has been losing weight, but with treatment of H pylori infection it has stabilized and he was able to gain 4 lb There is no more abdominal pain patient is eating fine there is no problem with the bowels there is no nausea vomiting He needs more paperwork for his job We will be sending them notes with following information Date of disability is 08/05/2023 Recent office visit is today 02/03/2024 Return to work date is 08/04/2024 Coding Level of Care Code Est Pt Level 4 (10702) Diagnoses Severe mitral regurgitation I34.0 Atrial enlargement, left I51.7 Mitral valve prolapse determined by imaging I34.1 Peptic ulcer K27.9 Celiac artery stenosis I77.1 Additional Codes SYBIL-7 Assessment Billing - SYBIL-7 Assessment Tool: SYBIL-7 Assessment 45331 ([id number])
== END 2024-02-03 08:31 | disposition home or self-care (01) ==
PROVIDERS: PCP Internal Medicine; Visit Provider Internal Medicine
DX: I34.0 Nonrheumatic mitral (valve) insufficiency (principal); I51.7 Cardiomegaly; I77.1 Stricture of artery; I34.1 Nonrheumatic mitral (valve) prolapse; K27.9 Peptic ulcer, site unspecified, unspecified as acute or chronic, without hemorrhage or perforation
CPT/HCPCS: 99214

== ENCOUNTER 2024-05-10 08:42 | Outpatient (AMB) | payer BC, SELFPAY ==
--- NOTE | 2024-05-10 08:59 | MHC.PC.OV ---
Intake Visit Reasons: FMLA Paperwork Allergies No Known Allergies Allergy (Verified 05/10/24 08:59) Medication List - Last Reconciled 05/10/24 by Faye Avelar MD atenolol 25 mg PO DAILY cholecalciferol (vitamin D3) 50 mcg PO DAILY cyanocobalamin (vitamin B-12) (Vitamin B-12) 500 mcg PO DAILY valsartan 40 mg PO DAILY Tobacco use date assessed: 05/10/24 Dental Screening Dental Screen Date: 05/10/24 Did you have a dental visit in the last 12 months?: Yes Did you have a dental problem in the last 6 months where you did not have access to dental care?: No Was dental information given to patient?: Patient has dentist HPI FMLA Paperwork HPI Details History - bulleted - The patient is a 49-year-old male presenting with a request to complete disability paperwork for surgery. - Surgery scheduled for June 19 at [facility]. Mitral valve repair/replacement by Dr. Vaca, phone number [phone] - Preoperative process to commence on June 07. - Short-term disability currently covers until June 12, after which long-term care will be required during recovery. - Dental work in progress for surgical clearance; two more dental visits are required before final clearance. - Incapacity period planned from August 05, 2023, to August 04, 2024. Review of Systems - General: No fever no chills - Neurological: No headaches no dizziness - Ear nose throat: No sore throat no hearing difficulty no ear pain - Musculoskeletal: Usual aches and pains nothing new - Cardiovascular: No syncope, no chest pain, no palpitations - Gastrointestinal: No nausea vomiting or diarrhea - Endocrine: No polyuria polydipsia no heat intolerance - Genitourinary: No dysuria , no blood in urine Patient Instructions - Complete remaining dental appointments promptly to secure surgical clearance. - Ensure all paperwork regarding short-term and long-term disability is accurately filled and submitted. - Adhere to the schedule for preoperative procedures as planned. [facility] Medical History HTN (hypertension) Severe mitral regurgitation Surgical History H/O colonoscopy Family History Father No problems noted. Mother No problems noted. Social History Housing: House Alcohol intake: current Alcohol intake frequency: a few times a month Patient Tobacco Use Status: Current everyday Tobacco user Tobacco use type: Cigarette Cigarettes Per Day: 6 e-Cigarette/Vaping Use: Never Used Current occupational status: employed Cognitive needs: No Hearing needs: No Vision needs: Yes Questionnaire Thrive Questionnaire Date Thrive assessed: 02/03/24 AUDIT C Alcohol Use Questionnaire (AUDIT-C) 1. How often do you have a drink containing alcohol?: 2-4 times a month 2. How many drinks containing alcohol do you have on a typical day when you are drinking?: 1 or 2 3. How often do you have six or more drinks on one occasion?: Never Total Score: 2 Score Reviewed/Action Taken: Yes SYBIL-7 AMB Questionnaire SYBIL-7 Date SYBIL - 7 assessed: 02/03/24 Source: Developed by Drs. Waqas Rutledge, Carol Colon, Oren Bronw and colleagues, with an educational kayla from [employer]. Review of Systems Const Denies chills and Denies fever(s) ENT Denies epistaxis and Denies nasal discharge Resp Denies chest congestion, Denies cough and Denies hemoptysis GI Denies diarrhea and Denies nausea Skin/Breast Denies rash Neuro Reports no additional complaints Psych Reports no additional complaints Endo Reports no additional complaints Physical exam (Primary Care) Tobacco/Smoking Status: Tobacco use Status Tobacco use date assessed 05/10/24 05/10/24 09:00 Patient Tobacco Use Status Current everyday Tobacco 05/10/24 09:00 Tobacco use type Cigarette 05/10/24 09:00 e-Cigarette/Vaping Use Never Used 05/10/24 09:00 Thrive Assessment: Date of Thrive Assessment Date Thrive assessed 02/03/24 05/10/24 09:00 Telehealth Telehealth Telehealth Platform: [facility] Location of provider rendering services: practice address Location of patient: address on file Patient Identification confirmed using: Name, : Yes Telehealth method: voice only Patient verbally consented to treatment: Yes Patient verbally consented to billing insurance company: Yes Patient informed of any privacy concerns related to visit: Yes Minutes spent on Phone/Video with Pt.: 16 Coding Level of Care Code Tele Est Pt Level 3 (25714) Diagnoses Atrial enlargement, left I51.7 Severe mitral regurgitation I34.0 Assessment & Plan Assessment & Plan (1) Atrial enlargement, left: Code(s): I51.7 - Cardiomegaly Category: Medical (2) Severe mitral regurgitation: Comment: initially been seeing Dr Doherty but was then referred to [facility]. Code(s): I34.0 - Nonrheumatic mitral (valve) insufficiency Category: Medical Plan History - bulleted - The patient is a 49-year-old male presenting with a request to complete disability paperwork for surgery. - Surgery scheduled for June 19 at [facility]. Mitral valve repair/replacement by Dr. Vaca, phone number [phone] - Preoperative process to commence on June 07. - Short-term disability currently covers until June 12, after which long-term care will be required during recovery. - Dental work in progress for surgical clearance; two more dental visits are required before final clearance. - Incapacity period planned from August 05, 2023, to August 04, 2024. Review of Systems - General: No fever no chills - Neurological: No headaches no dizziness - Ear nose throat: No sore throat no hearing difficulty no ear pain - Musculoskeletal: Usual aches and pains nothing new - Cardiovascular: No syncope, no chest pain, no palpitations - Gastrointestinal: No nausea vomiting or diarrhea - Endocrine: No polyuria polydipsia no heat intolerance - Genitourinary: No dysuria , no blood in urine Patient Instructions - Complete remaining dental appointments promptly to secure surgical clearance. - Ensure all paperwork regarding short-term and long-term disability is accurately filled and submitted. - Adhere to the schedule for preoperative procedures as planned.
--- OUTSIDE RECORDS SUMMARY | 2024-05-10 09:04 | XMS_ITS ---
Author Organization [facility] Address [address] [place] [address] Care Team Providers Care Weight Guesser Name Role Phone Valentino HATCH, [facility] [place] Primary Care Provider Waqas Cash [phone] REASON FOR VISIT message was posted on portal but pt cant get it Encounters Encounter Location Date Provider Diagnosis [facility] [address] [place] [address] 01/25/2024 Waqas Diaz PLAN OF TREATMENT Next Appt Details Provider Name:Waqas Diaz , 08/30/2024 09:00:00 AM, [address], [address], [place], [address],
--- OUTSIDE RECORDS SUMMARY | 2024-05-10 09:04 | XMS_ITS ---
Author Organization [facility] Address [address] [place] [address] Care Team Providers Care Car Whacker Name Role Phone Valentino HATCH, [facility] Primary Care Provider Waqas Cash [phone] ALLERGIES No Known Allergies REASON FOR VISIT Patient presents today for diarrhea MEDICATIONS Medication SIG (Take, Route, Frequency, Duration) Notes Start Date End Date Status Folic Acid 1 MG 1 tablet Orally Once a day 024 Active Atenolol 25 MG 1 tablet Orally Once a day for 30 day(s) 11/30/2023 Active Valsartan 40 MG TAKE 1 TABLET BY RUBI TH EVERY DAY Oral for 30 Active Vitamin D 50 MCG (1999 UT) 1 tablet Orally Once a day Active Omeprazole 40 MG 1 capsule Orally Every day 2023 Active Vitamin B 12 250 MCG 2 lozenges Orally O nce a day for 30 day(s) Active Lomotil 2.5-0.025 MG 1 or 2 Orally Every 4 to 6 hours as needed for diarrhea. You can take 1 or 2 first thing every morning and before meals to try to prevent the diarrhea in the first place. 12/20/2023 Active SOCIAL HISTORY Tobacco Use: Social History Observation Description Date Details (start date - stop date) Current Smoker NA - NA Sex Assigned At : Social History Observation Description Sex Assigned At Unknown Tobacco Use/Smoking Question Answer Notes Patient is a current smoker Alcohol Screen Question Answer Notes Did you have a drink contain ing alcohol in the past year? Yes How often did you have a dri nk containing alcohol in the past year? 2 to 4 times a month (2 points) How many drinks did you have on a typical day when you were drinking in the past year? 1 or 2 drinks (0 point) Points 2 Interpretation Negative PROBLEMS Problem Type ICD Code Onset Dates Problem Status W/U Status Risk SNOMED Code Notes Problem Chronic gastric ulcer (K25.7) Active confirmed Chronic gastri c ulcer (20494541) Problem Helicobacter pylori [H. pylori] as the cause of diseases classified elsewhere (B96.81) Active confirmed Helicobacter pylori (14398047) Problem History of adenomatous polyp of colon (Z86.010) Active confirmed History of adenomatous polyp of colon (755123633) VITAL SIGNS BMI 22.73 kg/m2 03/01/2024 Blood pressure systolic 00 mm Hg 03/01/20 24 Blood pressure diastolic 00 mm Hg 024 Height 5 ft 11 in in 03/01/2024 Weight 163 lbs 03/01/2024 Encounters Encounter Location Date Provider Diagnosis [facility] [address] [place] [address] 03/01/2024 Waqas Diaz Diarrhea R19.7 ; Chronic gastric ulcer K25.7 ; Helicobacter pylori [H. pylori] as the cause of diseases classified elsewhere B96.81 and History of adenomatous polyp of colon Z86.010 ASSESSMENTS Encounter Date Diagnosis Assessment Notes Treatment Notes Treatment Clinical Notes 03/01/2024 Diarrhea (ICD-10 - R19.7) 03/01/2024 Chronic gastric ulcer (ICD-10 - K25.7) 03/01/2024 Helicobacter pylori [H. pylori] as the cause of diseases classified elsewhere (ICD-10 - B96.81) 03/01/2024 History of adenomatous polyp of colon (ICD-10 - Z86.010) Repeat screening colonoscopy in 2028 PLAN OF TREATMENT Medication Medication Name Sig Start Date Stop Date Notes Folic Acid 1 MG 1 tablet Orally Once a day 12/05/2023 Vitamin D 50 MCG (1999 UT) 1 tablet Orally Once a day Omeprazole 40 MG 1 capsule Orally Every day 01/18/2024 Lomotil 2.5-0.025 MG 1 or 2 Orally Every 4 to 6 hours as needed for diarrhea. You can take 1 or 2 first thing every morning and before meals to try to prevent the diarrhea in the first place. 12/20/2023 Treatment Notes Assessment Notes History of adenomatous polyp of colon Re peat screening colonoscopy in 2028 Next Appt Details Follow Up: 6 Months, Reason: Provider Name:Waqas Diaz , 08/30/2024 09:00:00 AM, [address], [address], [place], [address], Progress Notes * Examination Category Sub-Category Detail Notes General Examination GENERAL APPEARANCE: pleasant , alert male who does appear to have definitely lost some weight. HEAD: EYES: sclera non-icteric EARS: NOSE: THROAT: NECK/THYROID: no cervical lymphade nopathy, neck supple HEART: S1, S2 normal CHEST: LUNGS: clear to auscultatio n bilaterally ABDOMEN: normal bowel sounds, no guarding or rigidity, no guarding or rigidity, no masses palpable, soft, nontender, nondistended NEUROLOGIC: alert and oriented SKIN: nonjaundiced, no spi lucero angiomata EXTREMITIES: no edema PERIPHERAL PULSES: BACK: BREASTS: MUSCULOSKELETAL: MALE GENITOURINARY: LYMPH NODES: RECTAL EXAM: FEMALE GENITOURINARY: ORAL CAVITY: mucosa moist
--- OUTSIDE RECORDS SUMMARY | 2024-05-10 09:04 | XMS_ITS ---
Author Organization [facility] Address [address] [place] [address] Care Team Providers Care Inspector [employer]ined [employer] Name Role Phone Valentino HATCH, [facility] Primary Care Provider Waqas Cash [phone] REASON FOR VISIT cardiology Encounters Encounter Location Date Provider Diagnosis [facility] [address] [place] [address] 02/03/2024 Waqas Diaz PLAN OF TREATMENT Next Appt Details Provider Name:Waqas Diaz , 08/30/2024 09:00:00 AM, [address], [address], [place], [address],
--- OUTSIDE RECORDS SUMMARY | 2024-05-10 09:05 | XMS_ITS | Patient Health Record ---
Author Organization [facility] Address [address] [place] [address] Care Team Providers Care Rn Cardiovascular Name Role Phone Valentino HATCH, Asma Primary Care Provider Waqas Cash [phone] ALLERGIES No Known Allergies RESULTS Component Value Reference Range Notes Ferritin Reviewed date:11/30/2023 10:36:54 PM Interpretation: Performing Lab:[facility], [address] [place] [phone] Notes/Report: Ferritin 92 20-250 ng/mL Complete Blood Count Auto Di ff Reviewed date:11/30/2023 10:33:50 PM Interpretation: Performing Lab:[facility], [address] [place] [phone] Notes/Report: White Blood Count 6.6 4.8-10.8 X10*3/uL Red Blood Count 4.48 4.60-5.80 X10*6/uL Hemoglobin 17.0 14.0-18.0 g/dl Hematocrit 47.2 42.0-52.0 % Mean Corpuscular Volume 105.4 80.0-98.0 fL Mean Corpuscular Hemoglobin 37.9 27.0-33.0 pg Mean Corpuscular HGB Conc 36.0 31.0-36.0 g/dl Red Cell Distribution Width 13.4 11.0-16.0 % Platelet Count 206 160-400 X10*3/uL Mean Platelet Volume 10.1 9.4-12.4 fL Neutrophils Percent Auto 60.4 45-73 % Imm Gran Pct Auto 0.5 0.0-0.4 % Lymphocytes Percent Auto 22.7 20-40 % Monocytes Percent Auto 11.6 2-11 % Eosinophils Percent Auto 3.6 0-4 % Basophils Percent Auto 1.2 0-2 % NRBC Pct Auto 0.0 0.0-0.2 /100WBC Neutrophils Absolute Auto 4.0 2.0-8.3 x10*3/u L Imm Gran Abs Auto 0.03 0.00-0.03 X10*3/uL Lymphocytes Absolute Auto 1.5 1.2-4.9 X10*3/u L Monocytes Absolute Auto 0.8 0.1-1.2 X10*3/uL Eosinophils Absolute Auto 0.2 0.0-0.4 X10*3/u L Basophils Absolute Auto 0.1 0.0-0.2 X10*3/uL NRBC Abs Auto 0.000 0.0-0.012 X10*3/uL Erythrocyte Sedimentation Ra te Reviewed date:11/30/2023 10:33:58 PM Interpretation: Performing Lab:[address] [address] Notes/Report: Erythrocyte Sedimentation Rate 3 0-15 MM/HR Patients with polycythemia and many hemoglobin abnormalities may have depressed sed rates whereas patients with anemia may have elevated sed rates. Liver Panel Reviewed date:11/30/2023 10:34:46 PM Interpretation: Performing Lab:[address] [phone] Notes/Report: Bilirubin Total 0.8 0.0-1.0 mg/dL Bilirubin Direct 0.3 0.0-0.5 mg/dL Aspartate Amino Transferase 26 5-37 U/L Alanine Aminotransferase 26 0-40 U/L Total Protein 7.1 6.5-8.0 g/dL Albumin Level 4.3 3.5-5.0 g/dL Alkaline Phosphatase 119 39-117 U/L Basic Metabolic Panel Reviewed date:11/30/2023 10:36:01 PM Interpretation: Performing Lab:[address] [address] Notes/Report: Sodium 140 135-145 mmol/L Potassium 4.2 3.3-5.1 mmol/L Chloride 104 96-108 mmol/L Carbon Dioxide 28 22-29 mmol/L Anion Gap 12 12-20 Blood Urea Nitrogen 14 9-16 mg/dL Creatinine 1.06 0.5-1.4 mg/dL Estimated Glomerular Filt Rate > 60 NOTE: For -Sol[place] Islander individuals, multiply the result by 1.210. Chronic Kidney Disease: Estimated GFR < 60 mL/min/1.73m2 Severe Kidney Disease: Estimated GFR < 15 mL/min/1.73m2 Glucose Random 76 60-115 mg/dL Calcium 9.4 8.4-10.2 mg/dL IRON PROFILE Reviewed date:11/30/2023 10:36:11 PM Interpretation: Performing Lab:[facility], [address] [place] [phone] Notes/Report: Iron 173 45-160 mcg/dL Total Iron Binding Capacity 337 228-428 mcg/dL Percent Iron Saturation 51 15-50 % Unsaturated Iron Binding 164 C Reactive Protein Reviewed date:11/30/2023 10:36:20 PM Interpretation: Performing Lab:[facility], [address] [place] [phone] Notes/Report: C Reactive Protein 0.11 < or = 0.50 mg/dL Vitamin B12 and Folate Reviewed date:12/06/2023 07:35:23 PM Interpretation: Performing Lab:[facility], [address] [place] [phone] Notes/Report: Vitamin B12 431 200-900 pg/mL NORMAL 200-900 PG/ML INDETERMINATE 160-199 PG/ML DEFICIENT < 160 PG/ML Folate 3.6 > or = 4.0 ng/mL Reference Values: > or = 4.0 ng/mL < 4.0 ng/mL suggests folate deficiency Methotrexate, aminopterin and folinic acid (leucovorin) are chemotherapeutic agents whose molecular structures are similar to folate; therefore, the Eligibility Consultant folate assay cannot be used for patients using these drugs. Immunoglobulin A Reviewed date:12/16/2023 07:07:04 PM Interpretation: Performing Lab:[facility], [address] [place] [phone] Notes/Report: Immunoglobulin A 293 47-310 mg/dL THIS TEST WAS PERFORMED AT: [employer] [address] [place] [phone] KERRY GRAHAM MD Transglutaminase Ab IgG Reviewed date:12/16/2023 07:07:18 PM Interpretation: Performing Lab:[facility], [address] [place] [phone] Notes/Report: Transglutaminase Ab IgG <1.0 Value Interpretation ----- <15.0 Antibody not detected > or = 15.0 Antibody detected THIS TEST WAS PERFORMED AT: [employer] [address] [place] [phone] KERRY GRAHAM MD Transglutaminase IgA Reviewed date:12/16/2023 07:07:30 PM Interpretation: Performing Lab:[facility], [address] [place] [phone] Notes/Report: Transglutaminase IgA <1.0 Value Interpretation ----- <15.0 Antibody not detected > or = 15.0 Antibody detected THIS TEST WAS PERFORMED AT: [employer] [address] [place] [phone] KERRY GRAHAM MD Gliadin Ab Panel Reviewed date:12/16/2023 07:07:47 PM Interpretation: Performing Lab:[facility], [address] [place] [phone] Notes/Report: Gliadin Deamidated IgA Ab <1.0 Value Interpretation ----- <15.0 Antibody not detected > or = 15.0 Antibody detected Gliadin Deamidated IgG Ab <1.0 Value Interpretation ----- <15.0 Antibody not detected > or = 15.0 Antibody detected THIS TEST WAS PERFORMED AT: [employer] [address] [place] [phone] KERRY GRAHAM MD Endomysial IgA rflx Titer Reviewed date:12/16/2023 07:08:03 PM Interpretation: Performing Lab:[facility], [address] [place] [phone] Notes/Report: Endomysial IgA Antibody Negative Negative THIS TEST WAS PERFORMED AT: [facility] [address] [place] [address] HAILEE RATHUR MD,PHD Endomysial Titer TNP Pathology Reviewed date:12/21/2023 07:58:01 AM Interpretation: Performing Lab:[facility], [address] [place] [phone] Notes/Report: CT abdomen pelvis w con Reviewed date:01/12/2024 09:38:56 AM Interpretation: Performing Lab: Notes/Report: [address] [address] [address] Scan Report Signed Patient: Rodo Winslow MR#: [id number] : 1975 Acct:[id number] Age/Sex: 48 / M ADM Date: 01/03/24 Loc: HO.CT Attending Dr: Waqas Diaz MD Ordering Physician: Waqas Diaz MD Date of Service: 01/03/24 Procedure(s): CT abdomen pelvis w IV con Accession Number(s): [id number] cc: Waqas Diaz MD EXAMINATION: CT ABDOMEN AND PELVIS WITH CONTRAST CLINICAL INFORMATION: Chronic diarrhea, abnormal weight loss COMPARISON: None available. TECHNIQUE: Multidetector volumetric images were obtained from the superior aspect of the liver through the pubic symphysis following administration 85 mL of Omnipaque 350 intravenous contrast. Sagittal and coronal reformatted images were obtained on the technologist's workstation. Oral contrast: No This CT examination was performed using dose optimization techniques as appropriate, variously including the following: *Automated exposure control *Adjustment of mA and/or kV according to patient size (this includes techniques or standardized protocols for targeted exams where dose is matched to indication/reason for exam; i.e. extremities or head) *Use of iterative reconstruction technique DLP: 294 mGy-cm FINDINGS: SHOCHET: Nonobstructive bowel pattern. L4-L5 and L5-S1 disc disease. LUNG BASES: The visualized lung bases are unremarkable. LIVER, GALLBLADDER, AND BILIARY TREE: The liver is normal in size, shape, and attenuation. No focal hepatic lesion or biliary ductal dilatation is present. Gallbladder fundal thickening, question adenomyomatosis with mild fat stranding. PANCREAS: Unremarkable. SPLEEN: Unremarkable. ADRENAL GLANDS: Unremarkable. KIDNEYS AND URETERS: The kidneys are normal in size, shape, and attenuation. No hydronephrosis, hydroureter, or calculi seen. No perinephric stranding. BLADDER: Decompressed. GASTROINTESTINAL TRACT: Small thick-walled hiatal hernia. Moderately distended stomach with contrast and debris. Question mild duodenal wall thickening. Nonobstructive bowel pattern. Unremarkable terminal ileum and appendix. Moderate fecal retention. ABDOMINAL WALL: No significant hernia is appreciated. LYMPH NODES: No pathologic lymphadenopathy. VASCULAR: Unremarkable. PELVIC VISCERA: Prostate calcifications and phleboliths. OSSEOUS STRUCTURES: L4-L5 and L5-S1 disc space narrowings.. CT/CT abdomen pelvis w IV con IMPRESSION: Question duodenal wall thickening. Question gallbladder adenomyomatosis with mild pericholecystic stranding. Fleischner guidelines were followed. Dictated By: Nelda Kerr MD Signed By: <Electronically signed by Nelda Kerr MD in OV> 01/03/24 1630 DD/ 1400 TD/TT: Precision Layout Worker: Basic Metabolic Panel Reviewed date:01/12/2024 09:38:06 AM Interpretation: Performing Lab:[facility], [address] [place] [phone] Notes/Report: Sodium 141 135-145 mmol/L Potassium 3.9 3.3-5.1 mmol/L Chloride 103 96-108 mmol/L Carbon Dioxide 33 22-29 mmol/L Anion Gap 9 12-20 Blood Urea Nitrogen 13 9-16 mg/dL Creatinine 1.28 0.5-1.4 mg/dL Estimated Glomerular Filt Rate 60 NOTE: For -[place] Islander individuals, multiply the result by 1.210. Chronic Kidney Disease: Estimated GFR < 60 mL/min/1.73m2 Severe Kidney Disease: Estimated GFR < 15 mL/min/1.73m2 Glucose Random 99 60-115 mg/dL Calcium 9.3 8.4-10.2 mg/dL Gastrin Reviewed date:01/24/2024 05:08:10 PM Interpretation: Performing Lab:[address] [phone] Notes/Report: Gastrin 30 <=100 pg/mL Reference range applies to fasting specimens only. For additional information, please refer to https://ZEturf.Adreima/faq/NGI871 (This link is being provided for informational/ educational purposes only.) THIS TEST WAS PERFORMED AT: [facility]/[address] [address] HAILEE ARTHUR MD,PHD Pathology Reviewed date:01/29/2024 05:59:50 PM Interpretation: Performing Lab:[facility], [address] [place] [phone] Notes/Report: Leukocytes Stool Qualitative Reviewed date:01/27/2024 06:23:49 PM Interpretation: Performing Lab:[facility], [address] [place] [phone] Notes/Report: Leukocytes Stool Qualitative NEGATIVE NEGATIVE Cancelled Serology Reviewed date:01/27/2024 06:22:58 PM Interpretation: Performing Lab:[facility], [address] [place] [phone] Notes/Report: Cancelled Serology SEE NOTE THE FOLLOWING TESTS WERE CANCELLED: CDIFF REASON: STOOL IS FORMED, TEST NOT INDICATED Giardia Ag Stool EIA Reviewed date:02/05/2024 05:19:04 PM Interpretation: Performing Lab:[facility], [address] [place] [phone] Notes/Report: Giardia Ag Stool EIA SEE NOTE GIARDIA AG, EIA, STOOL Micro Number: [id number] Test Status: Final Specimen Source: Stool Specimen Quality: Adequate Giardia Result 1: Not Detected Reference Range: Not Detected NOTE: Due to intermittent shedding, one negative sample does not necessarily rule out the presence of a parasitic infection. THIS TEST WAS PERFORMED AT: [facility] [address] [address] KERRY GRAHAM MD Pancreatic Elastase-1 Reviewed date:02/10/2024 04:51:58 PM Interpretation: Performing Lab:[facility], [address] [place] [phone] Notes/Report: Pancreatic Elastase-1 >500 Adult and Pediatric Reference Ranges for Pancreatic Elastase-1: Normal: >200 mcg/g Moderate Pancreatic Insufficiency: 100-200 mcg/g Severe Pancreatic Insufficiency: <100 mcg/g Elastase-1 (E-1) assay results are expressed in mcg/g, which represent mcg E1/g feces. It is not necessary to interrupt enzyme substitution therapy. THIS TEST WAS PERFORMED AT: [facility] [address] [place] [address] BENNIE BEDOLLA MD,PHD,XIOMARA Fecal Fat Qualitative Reviewed date:02/10/2024 04:52:07 PM Interpretation: Performing Lab:[facility], [address] [place] [phone] Notes/Report: Fecal Fat Qualitative Normal Normal THIS TEST WAS PERFORMED AT: [facility] [address] [place], [place] HAILEE ARTHUR MD,PHD Chymotrypsin, Stool Reviewed date:02/10/2024 04:52:23 PM Interpretation: Performing Lab:[facility], [address] [place] [phone] Notes/Report: Chymotrypsin, Stool 18.0 2.3-51.4 U/g This test was developed and its analytical performance characteristics have been determined by [employer]. It has not been cleared or approved by FDA. This assay has been validated pursuant to the CLIA regulations and is used for clinical purposes. THIS TEST WAS PERFORMED AT: [facility] [id number] [place] [phone] BENNIE BEDOLLA MD,PHD,XIOMARA Calprotectin, Fecal Reviewed date:02/10/2024 04:52:39 PM Interpretation: Performing Lab:[facility], [address] [place] [phone] Notes/Report: Calprotectin, Fecal 276 Reference Range: <50 Normal 50-120 Borderline >120 Elevated Calprotectin in Crohn's disease and ulcerative colitis can be five to several thousand times above the reference population (50 mcg/g or less). Levels are usually 50 mcg/g or less in healthy patients and with irritable bowel syndrome. Repeat testing in 4-6 weeks is suggested for borderline values. THIS TEST WAS PERFORMED AT: [facility] [address] [place] [address] BENNIE BEDOLLA MD,PHD,XIOMARA Ova and Parasite Reviewed date:02/06/2024 11:13:36 PM Interpretation: Performing Lab:[facility], [address] [place] [phone] Notes/Report: Ova and Parasite SEE NOTE OVA AND PARASITES, CONC AND PERM SMEAR Micro Number: [id number] Test Status: Final Specimen Source: Stool Specimen Quality: Adequate CONCENTRATION 1: No ova or parasites seen TRICHROME 1: No ova or parasites seen Routine Ova and Parasite exam may not detect some parasites that occasionally cause diarrheal illness. Cryptosporidium Antigen and/or Cyclospora Isospora Exam may be ordered to detect these parasites. For additional information, please refer to https://education.Adreima/faq/CIL497 (This link is being provided for informational/ educational purposes only.) THIS TEST WAS PERFORMED AT: [facility] [address] [address] JOANIE HOGUE MD GI PANEL Reviewed date:01/27/2024 06:23:33 PM Interpretation: Performing Lab:[facility], [address] [place] [phone] Notes/Report: Campylobacter Not Detected Not Detect. Plesiomonas shigelloides Not Detected Not Detect. Salmonella Not Detected Not Detect. Vibrio Not Detected Not Detect. Vibrio Cholerae Not Detected Not Detect. Yersinia enterocolitica Not Detected Not Detect. E. coli EAEC Not Detected Not Detect. E. coli EPEC Not Detected Not Detect. E. coli ETEC Not Detected Not Detect. E. coli STEC Not Detected Not Detect. E. coli O157 Not applicable Not Detect. E. coli containing the O157 antigen are a subset of Shiga-like toxin-producing E. coli (STEC). Shigella sp./EIEC Not Detected Not Detect. Cryptosporidium Not Detected Not Detect. Cyclospora cayetanensis Not Detected Not Detect. Entamoeba histolytica Not Detected Not Detect. Giardia lamblia Not Detected Not Detect. Adenovirus F 40/41 Not Detected Not Detect. Astrovirus Not Detected Not Detect. Norovirus GI/GII Not Detected Not Detect. Rotavirus A Not Detected Not Detect. Sapovirus Not Detected Not Detect. All results must be correlated with clinical findings. Negative results do not exclude the possibility of gastrointestinal infection and should not be used as the sole basis for diagnosis, treatment, or other management decisions. Virus, bacteria, and parasite nucleic acid may persist in vivo independently of organism viability. Additionally, some organisms may be carried symptomatically. Detection of organism targets does not imply that the corresponding organisms are infectious or are the causative agents for clinical symptoms. There is a risk of false negative values due to the presence of sequence variants in the gene targets of the assay, amplification inhibitors in specimens, or inadequate numbers of organisms for amplification. The identification of several diarrheagenic E. coli pathotypes has historically relied upon phenotypic characteristics. This panel targets genetic determinants characteristic of most pathogenic strains, but may not detect all strains having phenotypic characteristics of a pathotype. The performance of this test has not been established for monitoring treatment of infection with any of the panel organisms. This assay is performed by Multiplexed PCR, utilizing the [employer] Array. REASON FOR REFERRAL No Information MEDICATIONS Medication SIG (Take, Route, Frequency, Duration) Notes Start Date End Date Status Folic Acid 1 MG 1 tablet Orally Once a day 024 Active Atenolol 25 MG 1 tablet Orally Once a day for 30 day(s) 11/30/2023 Active Valsartan 40 MG TAKE 1 TABLET BY RUBI TH EVERY DAY Oral for 30 Active Vitamin D 50 MCG (2000 UT) 1 tablet Orally Once a day [...] diarrhea in the first place. 12/20/2023 Active IMMUNIZATIONS Vaccine Route Administration Date Status Comme nts Influenza Unknown 04/12/2023 Administered SOCIAL HISTORY Tobacco Use: Social History Observation [...] W/U Status Risk SNOMED Code Notes Problem Diarrhea (R19.7) Active confirmed Diarr hea (59915771) Problem Rectal bleed (K62.5) Active confirmed Hemorrhage of rectum and anus (940595677) Problem Loss of weight (R63.4) Active confirmed Weight decrease d (605789187) Problem Chronic diarrhea (K52.9) Active confirmed Chronic diarrhe a (438467575) Problem Abnormal weight loss (R63.4) Active confirmed Abnormal weight loss (662350301) Problem Diverticulosis of large intestine without perforation or abscess without bleeding (K57.30) Active confirmed Diverticul ar disease of colon (505817168) Problem Abnormal findings on diagnostic imaging of other parts of digestive tract (R93.3) Active confirmed Imaging of gastrointestinal tract abnormal (105445508) Problem Gastroesophageal reflux disease with esophagitis without hemorrhage (K21.00) Active confirmed Gastroes ophageal reflux disease with esophagitis (disorder) (440436433) Problem Duodenitis (K29.80) Active confirmed Du odenitis (35313427) Problem Duodenal ulcer disease (K26.9) Active confirmed Duodenal ulc er disease (92117912) Problem Gastric ulcer (K25.9) Active confirmed Gastric ulcer (106176568) Problem Chronic gastric ulcer (K25.7) Active confirmed Chronic gastri c ulcer (99990583) Problem Helicobacter pylori [H. pylori] as the cause of diseases classified elsewhere (B96.81) Active confirmed Helicobac ter pylori (08681692) Problem History of adenomatous polyp of colon (Z86.010) Active confirmed History o f adenomatous polyp of colon (338627269) VITAL SIGNS Temperature 97.3 degrees Fahrenheit 11/30/2023 Blood pressure diastolic 00 mm Hg 03/01/2024 Height 5 ft 11 in in 03/01/2024 Blood pressure systolic 00 mm Hg 03/01/2024 Weight 163 lbs 03/01/2024 BMI 22.73 kg/m2 03/01/2024 Encounters Encounter Location Date Provider Diagnosis [facility] Outpatient [address] [place] [phone] 12/15/2023 Waqas Diaz Colon polyps K63.5 ; Diarrhea R19.7 ; Rectal bleeding K62.5 ; Weight loss R63.4 ; Diverticulosis of large intestine without perforation or abscess without bleeding K57.30 and Other hemorrhoids K64.8 [facility] Outpatient [address] [place], [place] [phone] 01/13/2024 Waqas Diaz [facility] Outpatient [address] [place], [place] [phone] 01/18/2024 Waqas Diaz Gastroesophageal ref lux disease with esophagitis without hemorrhage K21.00 ; Duodenitis K29.80 ; Duodenal ulcer disease K26.9 ; Gastric ulcer K25.9 ; Hiatal hernia K44.9 ; Abn findings-GI tract R93.3 and Weight loss R63.4 [facility] [address] [place] [address] 03/01/2024 Waqas Diaz Diarrhea R19.7 ; Chr onic gastric ulcer K25.7 ; Helicobacter pylori [H. pylori] as the cause of diseases classified elsewhere B96.81 and History of adenomatous polyp of colon Z86.010 [facility] [address] [place] [phone] 11/30/2023 Waqas Diaz Diarrhea R19.7 ; Rec keeley bleed K62.5 and Loss of weight R63.4 [facility] [address] [place] [address] 12/01/2023 Waqas Diaz [facility] [address] [place] [address] 12/01/2023 Waqas Diaz [facility] [address] [place] [phone] 12/20/2023 Waqas Diaz Chronic diarrhea K52 .9 ; Abnormal weight loss R63.4 and Abnormal findings on diagnostic imaging of other parts of digestive tract R93.3 [facility] [address] [place] [phone] 01/15/2024 Waqas Diaz [facility] [address] [place] [phone] 01/18/2024 Waqas Diaz [facility] [address] [place] [phone] 01/19/2024 Waqas Diaz [facility] [address] [place] [phone] 01/25/2024 Waqas Diaz [facility] [address] [place] [address] 02/03/2024 Waqas Diaz ASSESSMENTS Encounter Date Diagnosis Assessment Notes Treatment Notes Treatment Clinical Notes 12/15/2023 Diarrhea (ICD-10 - R19.7) 12/15/2023 Colon polyps (ICD-10 - K63.5) 01/18/2024 Duodenitis (ICD-10 - K29.80) 01/18/2024 Gastroesophageal reflux disease with esophagitis without hemorrhage (ICD-10 - K21.00) 03/01/2024 Diarrhea (ICD-10 - R19.7) 03/01/2024 Chronic gastric ulce r (ICD-10 - K25.7) 11/30/2023 Diarrhea (ICD-10 - R19.7) Need clearance from the [facility] and/or [facility] Cardiology 11/30/2023 Rectal bleed (ICD-10 - K62.5) 12/20/2023 Chronic diarrhea (ICD-10 - K52.9) 12/15/2023 Rectal bleeding (ICD-10 - K62.5) 01/18/2024 Duodenal ulcer disea se (ICD-10 - K26.9) 03/01/2024 Helicobacter pylori [H. pylori] as the cause of diseases classified elsewhere (ICD-10 - B96.81) 11/30/2023 Loss of weight (ICD- 10 - R63.4) 12/20/2023 Abnormal weight loss (ICD-10 - R63.4) 12/15/2023 Weight loss (ICD-10 - R63.4) 01/18/2024 Gastric ulcer (ICD-1 0 - K25.9) 03/01/2024 History of adenomato us polyp of colon (ICD-10 - Z86.010) Repeat screening colonoscopy in 202812/20/2023 Abnormal findings on diagnostic imaging of other parts of digestive tract (ICD-10 - R93.3) 12/15/2023 Diverticulosis of large intestine without perforation or abscess without bleeding (ICD-10 - K57.30) 01/18/2024 Hiatal hernia (ICD-1 0 - K44.9) 12/15/2023 Other hemorrhoids (ICD-10 - K64.8) 01/18/2024 Abn findings-GI trac t (ICD-10 - R93.3) 01/18/2024 Weight loss (ICD-10 - R63.4) PLAN OF TREATMENT Pending Test Test Name Order Date CHEM 7 PROFILE 11/30/2023 CHEM 7 PROFILE 12/20/2023 LIVER PROFILE 11/30/2023 IRON + IBC (FE) 11/30/2023 CRP 11/30/2023 VITAMIN B12 AND FOLATE 11/30/2023 CBC w DIFF 11/30/2023 SED RATE (ESR) 11/30/2023 STOOL WBC 12/20/2023 CELIAC PANEL #10 11/30/2023 CT ABD & PELVIS WITH CONTRAST 12/20/2023 C DIFFICILE RFLX PCR 12/20/2023 Trypsin 12/20/2023 Giardia Ag Stool EIA 12/20/2023 Pancreatic Elastase-1 12/20/2023 Fecal Fat Qualitative 12/20/2023 Calprotectin, Fecal 12/20/2023 Ova and Parasite 12/20/2023 GI PANEL 12/20/2023 Future Test Test Name Order Date COLONOSCOPY 11/30/2023 UPPER GI ENDOSCOPY 01/05/2024 Next Appt Details Provider Name:Waqas Diaz , 08/30/2024 09:00:00 AM, [address] [facility], [address], [place], [address], Insurance Providers Payer Name Payer Address Payer Phone Subscriber Number Group Number Insured Name Patient Relationship to Insured Coverage Start Date Coverage End Date [facility] [address] [place] [address] [id number] RODO WINSLOW Self - patient is the insured MEDICAL (GENERAL) HISTORY Medical History History ICD Code Mitral valve insufficiency-- scheduled for surgery for a mitral valve repair at [facility] on 04/24/2024--has initially been seeing Dr. Doherty but was then referred to [facility] for his surgery HTN Denies CA,DM,CVA,Lung disease,renal dise ase Chronic diarrhea-colonoscopy as below--negative workup with multiple stool specimens to rule out infection and pancreatic insufficiency; workup for celiac disease was negative; gastrin level was normal Colonoscopy November of 2023-one tubular adenoma removed. No inflammatory bowel disease and biopsies were negative for microscopic colitis. Terminal ileum was not visualized Upper endoscopy December-duodenal and gastric ulcers, gastritis with H. pylori, small hiatal hernia with reflux and esophagitis but no Bianchi's esophagus. Started on omeprazole. Gastrin level was normal. Duodenal biopsies were negative for celiac disease. 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
== END 2024-05-10 10:52 | disposition home or self-care (01) ==
LOC: HO.HMCC 08:42
PROVIDERS: PCP Internal Medicine; Visit Provider Internal Medicine
DX: I51.7 Cardiomegaly (principal); I34.0 Nonrheumatic mitral (valve) insufficiency

== ENCOUNTER → 2024-05-10 08:42 | Outpatient (BNVA) | payer BC, SELFPAY | PROVIDERS: PCP Internal Medicine; Visit Provider Internal Medicine ==

== ENCOUNTER 2024-07-13 15:54 | Outpatient (REF) | payer BC, SELFPAY ==
--- OUTSIDE RECORDS SUMMARY | 2024-07-13 15:57 | XMS_ITS ---
Author Organization [facility] Address [address] [place] [address] Care Team Providers Care Burlap Worker Name Role Phone Valentino HATCH, [facility] Primary Care Provider Waqas Cash [phone] ALLERGIES No Known Allergies REASON FOR VISIT [...] (K25.7) Active confirmed Chronic gastri c ulcer (53408832) Problem Helicobacter pylori [H. pylori] as the cause of diseases classified elsewhere (B96.81) Active confirmed Helicobacter pylori (43221284) Problem History of adenomatous polyp of colon (Z86.010) Active confirmed History of adenomatous polyp of colon (438754670) VITAL SIGNS BMI 22.73 kg/m2 03/01/2024 Blood pressure systolic 00 mm Hg 03/01/20 24 Blood pressure diastolic 00 mm Hg 024 Height 5 ft 11 in in 03/01/2024 Weight 163 lbs 03/01/2024 Encounters Encounter Location Date Provider Diagnosis [facility] [address] [place] [address] 03/01/2024 Waqas Diaz Diarrhea R19.7 ; Chronic [...] 09:00:00 AM, [address], [address], [place], [address], Progress Notes * Examination Category Sub-Category Detail [...]
--- OUTSIDE RECORDS SUMMARY | 2024-07-13 15:58 | XMS_ITS | Patient Health Record ---
Author Organization [facility] Address [address] [place] [address] Care Team Providers Care Incubator Operator Name Role Phone Valentino HATCH, Asma Primary Care Provider Waqas Cash [phone] ALLERGIES No Known Allergies RESULTS Component Value Reference Range Notes Ferritin Reviewed date:11/30/2023 10:36:54 PM Interpretation: Performing Lab:[facility], [address] [place] [phone] Notes/Report: Ferritin 92 20-250 ng/mL Complete Blood Count Auto Di ff Reviewed date:11/30/2023 10:33:50 PM Interpretation: Performing Lab:[facility], [address] [place] [address] Notes/Report: White Blood Count 6.6 4.8-10.8 X10*3/uL [...] te Reviewed date:11/30/2023 10:33:58 PM Interpretation: Performing Lab:[address] [address] Notes/Report: Erythrocyte Sedimentation Rate 3 0-15 MM/HR Patients with polycythemia and many hemoglobin abnormalities may have depressed sed rates whereas patients with anemia may have elevated sed rates. Liver Panel Reviewed date:11/30/2023 10:34:46 PM Interpretation: Performing Lab:[address] [address] Notes/Report: Bilirubin Total 0.8 0.0-1.0 mg/dL Bilirubin Direct 0.3 0.0-0.5 mg/dL Aspartate Amino Transferase 26 5-37 U/L Alanine Aminotransferase 26 0-40 U/L Total Protein 7.1 6.5-8.0 g/dL Albumin Level 4.3 3.5-5.0 g/dL Alkaline Phosphatase 119 39-117 U/L Basic Metabolic Panel Reviewed date:11/30/2023 10:36:01 PM Interpretation: Performing Lab:[address] [address] Notes/Report: Sodium 140 135-145 mmol/L Potassium 4.2 3.3-5.1 mmol/L Chloride 104 96-108 mmol/L Carbon Dioxide 28 22-29 mmol/L Anion Gap 12 12-20 Blood Urea Nitrogen 14 9-16 mg/dL Creatinine 1.06 0.5-1.4 mg/dL Estimated Glomerular Filt Rate > 60 NOTE: For -Afghan individuals, multiply the result by 1.210. Chronic Kidney Disease: Estimated GFR < 60 mL/min/1.73m2 Severe Kidney Disease: Estimated GFR < 15 mL/min/1.73m2 Glucose Random 76 60-115 mg/dL Calcium 9.4 8.4-10.2 mg/dL IRON PROFILE Reviewed date:11/30/2023 10:36:11 PM Interpretation: Performing Lab:[facility], [address] [place] [phone] Notes/Report: Iron 173 45-160 mcg/dL Total Iron Binding Capacity 337 228-428 mcg/dL Percent Iron Saturation 51 15-50 % Unsaturated Iron Binding 164 C Reactive Protein Reviewed date:11/30/2023 10:36:20 PM Interpretation: Performing Lab:[facility], [address] [place] [phone] Notes/Report: C Reactive Protein 0.11 < or = 0.50 mg/dL Vitamin B12 and Folate Reviewed date:12/06/2023 07:35:23 PM Interpretation: Performing Lab:[facility], [address] [place] [address] Notes/Report: Vitamin B12 431 200-900 pg/mL NORMAL 200-900 PG/ML INDETERMINATE 160-199 PG/ML DEFICIENT < 160 PG/ML Folate 3.6 > or = 4.0 ng/mL Reference Values: > or = 4.0 ng/mL < 4.0 ng/mL suggests folate deficiency Methotrexate, aminopterin and folinic acid (leucovorin) are chemotherapeutic agents whose molecular structures are similar to folate; therefore, the Waiter/Waitress [employer] folate assay cannot be used for patients using these drugs. Immunoglobulin A Reviewed date:12/16/2023 07:07:04 PM Interpretation: Performing Lab:[facility], [address] [place] [phone] Notes/Report: Immunoglobulin A 293 47-310 mg/dL THIS TEST WAS PERFORMED AT: [facility] [address] [place] [phone] KERRY GRAHAM MD Transglutaminase Ab IgG Reviewed date:12/16/2023 07:07:18 PM Interpretation: Performing Lab:[facility], [address] [place] [phone] Notes/Report: Transglutaminase Ab IgG <1.0 Value Interpretation ----- <15.0 Antibody not detected > or = 15.0 Antibody detected THIS TEST WAS PERFORMED AT: [facility] [address] [place] [phone] KERRY GRAHAM MD Transglutaminase IgA Reviewed date:12/16/2023 07:07:30 PM Interpretation: Performing Lab:[facility], [address] [place] [phone] Notes/Report: Transglutaminase IgA <1.0 Value Interpretation ----- <15.0 Antibody not detected > or = 15.0 Antibody detected THIS TEST WAS PERFORMED AT: [facility] [address] [place] [phone] KERRY GRAHAM MD Gliadin Ab Panel Reviewed date:12/16/2023 07:07:47 PM Interpretation: Performing Lab:[facility], [address] [place] [phone] Notes/Report: Gliadin Deamidated IgA Ab <1.0 Value Interpretation ----- <15.0 Antibody not detected > or = 15.0 Antibody detected Gliadin Deamidated IgG Ab <1.0 Value Interpretation ----- <15.0 Antibody not detected > or = 15.0 Antibody detected THIS TEST WAS PERFORMED AT: [facility] [address] [place] [phone] KERRY GRAHAM MD Endomysial IgA rflx Titer Reviewed date:12/16/2023 07:08:03 PM Interpretation: Performing Lab:[facility], [address] [place] [address] Notes/Report: Endomysial IgA Antibody Negative Negative THIS TEST WAS PERFORMED AT: [employer] [facility] [address] [place] [address] HAILEE ARTHUR MD,PHD Endomysial Titer TNP Pathology Reviewed date:12/21/2023 07:58:01 AM Interpretation: Performing Lab:[facility], [address] [place] [phone] Notes/Report: CT abdomen pelvis w con Reviewed date:01/12/2024 09:38:56 AM Interpretation: Performing Lab: Notes/Report: [address] [address] [address] Scan Report Signed Patient: Rodo Winslow MR#: [id number] : 1975 Acct:[id number] Age/Sex: 48 / M ADM Date: 01/03/24 Loc: HO.CT Attending Dr: Waqas Diaz MD Ordering Physician: Waqas Diaz MD Date of Service: 01/03/24 Procedure(s): CT abdomen pelvis w IV con Accession Number(s): [id number] cc: Waqas Diaz MD EXAMINATION: CT ABDOMEN [...] iterative reconstruction technique DLP: 294 mGy-cm FINDINGS: SALES BROKER: Nonobstructive bowel pattern. L4-L5 and L5-S1 disc [...] in OV> 01/03/24 1630 DD/ 1400 TD/TT: Automatic Grinding Machine Operator: Basic Metabolic Panel Reviewed date:01/12/2024 09:38:06 AM Interpretation: Performing Lab:[facility], [address] [place] [phone] Notes/Report: Sodium 141 135-145 mmol/L Potassium 3.9 3.3-5.1 mmol/L Chloride 103 96-108 mmol/L Carbon Dioxide 33 22-29 mmol/L Anion Gap 9 12-20 Blood Urea Nitrogen 13 9-16 mg/dL Creatinine 1.28 0.5-1.4 mg/dL Estimated Glomerular Filt Rate 60 NOTE: For -Afghan individuals, multiply the result by 1.210. Chronic Kidney Disease: Estimated GFR < 60 mL/min/1.73m2 Severe Kidney Disease: Estimated GFR < 15 mL/min/1.73m2 Glucose Random 99 60-115 mg/dL Calcium 9.3 8.4-10.2 mg/dL Gastrin Reviewed date:01/24/2024 05:08:10 PM Interpretation: Performing Lab:[address] [address] Notes/Report: Gastrin 30 <=100 pg/mL Reference range applies to fasting specimens only. For additional information, please refer to https://[employer]/faq/HLH640 (This link is being provided for informational/ educational purposes only.) THIS TEST WAS PERFORMED AT: [employer]/[address] [address] HAILEE ARTHUR MD,PHD Pathology Reviewed date:01/29/2024 05:59:50 PM Interpretation: Performing Lab:[facility], [address] [place] [phone] Notes/Report: Leukocytes Stool Qualitative Reviewed date:01/27/2024 06:23:49 PM Interpretation: Performing Lab:[facility], [address] [place] [phone] Notes/Report: Leukocytes Stool Qualitative NEGATIVE NEGATIVE Cancelled Serology Reviewed date:01/27/2024 06:22:58 PM Interpretation: Performing Lab:[facility], [address] [place] [phone] Notes/Report: Cancelled Serology SEE NOTE THE FOLLOWING TESTS WERE CANCELLED: CDIFF REASON: STOOL IS FORMED, TEST NOT INDICATED Giardia Ag Stool EIA Reviewed date:02/05/2024 05:19:04 PM Interpretation: Performing Lab:[facility], [address] [place] [phone] Notes/Report: Giardia Ag Stool EIA SEE NOTE GIARDIA AG, EIA, STOOL Micro Number: [id number] Test Status: Final Specimen Source: Stool Specimen Quality: Adequate Giardia Result 1: Not Detected Reference Range: Not Detected NOTE: Due to intermittent shedding, one negative sample does not necessarily rule out the presence of a parasitic infection. THIS TEST WAS PERFORMED AT: [employer] [address] [address] KERRY GRAHAM MD Pancreatic Elastase-1 Reviewed date:02/10/2024 04:51:58 PM Interpretation: Performing Lab:[facility], [address] [place] [phone] Notes/Report: Pancreatic Elastase-1 >500 Adult and Pediatric Reference Ranges for Pancreatic Elastase-1: Normal: >200 mcg/g Moderate Pancreatic Insufficiency: 100-200 mcg/g Severe Pancreatic Insufficiency: <100 mcg/g Elastase-1 (E-1) assay results are expressed in mcg/g, which represent mcg E1/g feces. It is not necessary to interrupt enzyme substitution therapy. THIS TEST WAS PERFORMED AT: [employer]/[facility] [address] [place] [address] BENNIE BEDOLLA MD,PHD,XIOMARA Fecal Fat Qualitative Reviewed date:02/10/2024 04:52:07 PM Interpretation: Performing Lab:[facility], [address] [place] [address] Notes/Report: Fecal Fat Qualitative Normal Normal THIS TEST WAS PERFORMED AT: [employer]/[facility] [address] [place], [place] HAILEE ARTHUR MD,PHD Chymotrypsin, Stool Reviewed date:02/10/2024 04:52:23 PM Interpretation: Performing Lab:[facility], [address] [place] [address] Notes/Report: Chymotrypsin, Stool 18.0 2.3-51.4 U/g This test was developed and its analytical performance characteristics have been determined by [employer]. It has not been cleared or approved by FDA. This assay has been validated pursuant to the CLIA regulations and is used for clinical purposes. THIS TEST WAS PERFORMED AT: [employer]/[facility] [id number] [place] [address] BENNIE BEDOLLA MD,PHD,XIOMARA Calprotectin, Fecal Reviewed date:02/10/2024 04:52:39 PM Interpretation: Performing Lab:[facility], [address] [place] [address] Notes/Report: Calprotectin, Fecal 276 Reference Range: <50 [...] borderline values. THIS TEST WAS PERFORMED AT: [employer]/[facility] [address] [place] [address] BENNIE BEDOLLA MD,PHD,XIOMARA Ova and Parasite Reviewed date:02/06/2024 11:13:36 PM Interpretation: Performing Lab:[facility], [address] [place] [phone] Notes/Report: Ova and Parasite SEE NOTE OVA AND PARASITES, CONC AND PERM SMEAR Micro Number: [id number] Test Status: Final Specimen Source: Stool Specimen Quality: Adequate CONCENTRATION 1: No ova or parasites seen TRICHROME 1: No ova or parasites seen Routine Ova and Parasite exam may not detect some parasites that occasionally cause diarrheal illness. Cryptosporidium Antigen and/or Cyclospora Isospora Exam may be ordered to detect these parasites. For additional information, please refer to https://education.[employer] My Car/faq/UIQ016 (This link is being provided for informational/ educational purposes only.) THIS TEST WAS PERFORMED AT: [employer] [address] [address] JOANIE HOGUE MD GI PANEL Reviewed date:01/27/2024 06:23:33 PM Interpretation: Performing Lab:[facility], [address] [place] [address] Notes/Report: Campylobacter Not Detected Not Detect. Plesiomonas [...] is performed by Multiplexed PCR, utilizing the [employer] Array. REASON FOR REFERRAL No Information MEDICATIONS Medication SIG (Take, Route, Frequency, Duration) Notes Start Date End Date Status Folic Acid 1 MG 1 tablet Orally Once a day 024 Active Atenolol 25 MG 1 tablet Orally Once a day for 30 day(s) 11/30/2023 Active Valsartan 40 MG TAKE 1 TABLET BY RUBI TH EVERY DAY Oral for 30 Active Lomotil 2.5-0.025 MG 1 or 2 Orally Every 4 to 6 hours as needed for diarrhea. You can take 1 or 2 first thing every morning and before meals to try to prevent the diarrhea in the first place. for 30 days 07/08/2024 Active Omeprazole 40 MG TAKE 1 CAPSULE BY MO UTH EVERY DAY for 90 Active Vitamin D 50 MCG (2000 UT) 1 tablet Orally Once a day Active Vitamin B 12 250 MCG 2 lozenges Orally O nce a day for 30 day(s) Active IMMUNIZATIONS Vaccine Route Administration Date Status [...] Problem Diarrhea (R19.7) Active confirmed Diarr hea (48176813) Problem Rectal bleed (K62.5) Active confirmed Hemorrhage of rectum and anus (691191060) Problem Loss of weight (R63.4) Active confirmed Weight decrease d (838888805) Problem Chronic diarrhea (K52.9) Active confirmed Chronic diarrhe a (234514227) Problem Abnormal weight loss (R63.4) Active confirmed Abnormal weight loss (052908374) Problem Diverticulosis of large intestine without perforation or abscess without bleeding (K57.30) Active confirmed Diverticul ar disease of colon (517112359) Problem Abnormal findings on diagnostic imaging of other parts of digestive tract (R93.3) Active confirmed Imaging of gastrointestinal tract abnormal (187379712) Problem Gastroesophageal reflux disease with esophagitis without hemorrhage (K21.00) Active confirmed Gastroes ophageal reflux disease with esophagitis (disorder) (530680334) Problem Duodenitis (K29.80) Active confirmed Du odenitis (14464228) Problem Duodenal ulcer disease (K26.9) Active confirmed Duodenal ulc er disease (00173445) Problem Gastric ulcer (K25.9) Active confirmed Gastric ulcer (827312862) Problem Chronic gastric ulcer (K25.7) Active confirmed Chronic gastri c ulcer (22832003) Problem Helicobacter pylori [H. pylori] as the cause of diseases classified elsewhere (B96.81) Active confirmed Helicobac ter pylori (76503349) Problem History of adenomatous polyp of colon (Z86.010) Active confirmed History o f adenomatous polyp of colon (065359847) Problem Rectal bleeding (K62.5) Active confirmed Rectal bleeding (45448855) VITAL SIGNS Temperature 97.3 degrees Fahrenheit 11/30/2023 Blood pressure diastolic 00 mm Hg 03/01/2024 Height 5 ft 11 in in 03/01/2024 Blood pressure systolic 00 mm Hg 03/01/2024 Weight 163 lbs 03/01/2024 BMI 22.73 kg/m2 03/01/2024 Encounters Encounter Location Date Provider Diagnosis [facility] [address] [place] [id number] 12/15/2023 Waqas Diaz Colon polyps K63.5 ; Diarrhea R19.7 ; Rectal bleeding K62.5 ; Weight loss R63.4 ; Diverticulosis of large intestine without perforation or abscess without bleeding K57.30 and Other hemorrhoids K64.8 [facility] [address] [place] [id number] 01/13/2024 Waqas Diaz [facility] [address] [place] [id number] 01/18/2024 Waqas Diaz Gastroesophageal ref lux disease with esophagitis without hemorrhage K21.00 ; Duodenitis K29.80 ; Duodenal ulcer disease K26.9 ; Gastric ulcer K25.9 ; Hiatal hernia K44.9 ; Abn findings-GI tract R93.3 and Weight loss R63.4 [facility] [address] [place] [address] 03/01/2024 Waqas Diaz Diarrhea R19.7 ; Chr onic gastric ulcer K25.7 ; Helicobacter pylori [H. pylori] as the cause of diseases classified elsewhere B96.81 and History of adenomatous polyp of colon Z86.010 [facility] [address] [place] [address] 11/30/2023 Waqas Diaz Diarrhea R19.7 ; Rec keeley bleed K62.5 and Loss of weight R63.4 [facility] [address] [place] [address] 12/01/2023 Waqas Diaz [facility] [address] [place] [phone] 12/01/2023 Waqas Diaz [facility] [address] [place] [phone] 12/20/2023 Waqas Diaz Chronic diarrhea K52 .9 ; Abnormal weight loss R63.4 and Abnormal findings on diagnostic imaging of other parts of digestive tract R93.3 [facility] [address] [place] [phone] 01/15/2024 Waqas Diaz [facility] [address] [place] [phone] 01/18/2024 Waqas Diaz [facility] [address] [place] [address] 01/19/2024 Waqas Diaz [facility] [address] [place] [address] 01/25/2024 Waqas Diaz [facility] [address] [place] [phone] 02/03/2024 Waqas Diaz [facility] [address] [place] [phone] 06/21/2024 Waqas Diaz Diarrhea R19.7 ; Rec keeley bleeding K62.5 and Folate deficiency E53.8 [facility] [address] [place] [address] 07/04/2024 Waqas Diaz ASSESSMENTS Encounter Date Diagnosis Assessment Notes Treatment Notes Treatment Clinical Notes 12/15/2023 Diarrhea (ICD-10 - R19.7) 12/15/2023 Colon polyps (ICD-10 - K63.5) 01/18/2024 Duodenitis (ICD-10 - K29.80) 01/18/2024 Gastroesophageal reflux disease with esophagitis without hemorrhage (ICD-10 - K21.00) 03/01/2024 Diarrhea (ICD-10 - R19.7) 03/01/2024 Chronic gastric ulce r (ICD-10 - K25.7) 11/30/2023 Diarrhea (ICD-10 - R19.7) Need clearance from the [facility] and/or [facility] Cardiology 11/30/2023 Rectal bleed (ICD-10 - K62.5) 12/20/2023 Chronic diarrhea (ICD-10 - K52.9) 06/21/2024 Rectal bleeding (ICD-10 - K62.5) 06/21/2024 Diarrhea (ICD-10 - R19.7) 12/15/2023 Rectal bleeding (ICD-10 - K62.5) 01/18/2024 [...] 01/18/2024 Hiatal hernia (ICD-1 0 - K44.9) 06/21/2024 Folate deficiency (ICD-10 - E53.8) 12/15/2023 Other hemorrhoids (ICD-10 - K64.8) 01/18/2024 Abn findings-GI trac t (ICD-10 - R93.3) 01/18/2024 Weight loss (ICD-10 - R63.4) PLAN OF TREATMENT Pending Test Test Name Order Date CHEM 7 PROFILE 06/21/2024 CHEM 7 PROFILE 11/30/2023 CHEM 7 PROFILE 12/20/2023 LIVER PROFILE 06/21/2024 LIVER PROFILE 11/30/2023 IRON + IBC (FE) 11/30/2023 CRP 06/21/2024 CRP 11/30/2023 VITAMIN B12 AND FOLATE 11/30/2023 CBC w DIFF 11/30/2023 CBC w DIFF 06/21/2024 SED RATE (ESR) 11/30/2023 SED RATE (ESR) 06/21/2024 STOOL WBC 12/20/2023 CELIAC PANEL #10 11/30/2023 CT ABD & PELVIS WITH CONTRAST 12/20/2023 STOOL WBC 06/21/2024 C DIFFICILE RFLX PCR 12/20/2023 C DIFFICILE RFLX PCR 06/21/2024 Folate 06/21/2024 Trypsin 12/20/2023 Giardia Ag Stool EIA 12/20/2023 Pancreatic Elastase-1 12/20/2023 Fecal Fat Qualitative 12/20/2023 Calprotectin, Fecal 12/20/2023 Calprotectin, Fecal 06/21/2024 Ova and Parasite 12/20/2023 GI PANEL 12/20/2023 GI PANEL 06/21/2024 Future Test Test Name Order Date COLONOSCOPY 11/30/2023 UPPER GI ENDOSCOPY 01/05/2024 Next Appt Details Provider Name:Waqas Diaz , 08/30/2024 09:00:00 AM, [address], [address], [place], [address], Insurance Providers Payer Name Payer Address Payer Phone Subscriber Number Group Number Insured Name Patient Relationship to Insured Coverage Start Date Coverage End Date [facility] [address] [place] [address] [id number] RODO WINSLOW Self - patient is the insured MEDICAL (GENERAL) HISTORY Medical History History ICD Code Mitral valve insufficiency-- scheduled for surgery for a mitral valve repair at [facility] on 04/24/2024--has initially been seeing Dr. Doherty but was then referred to [facility] for his surgery HTN Denies PR,DM,CVA,Lung disease,renal dise ase Chronic diarrhea-colonoscopy as below--negative [...] on 12/[address] scan at [facility]--- this appears to be an incidental finding as he is asymptomatic in that regard-reviewed with patient at the 03/01/24 OV Surgical History Surgery Date(Month/Year)
--- OUTSIDE RECORDS SUMMARY | 2024-07-13 15:58 | XMS_ITS ---
Author Organization [facility] Address [address] [place] [address] Care Team Providers Care Quarryman Name Role Phone Valentino HATCH, [facility] Primary Care Provider Waqas Cash [phone] REASON FOR VISIT REQUESTING NOTE FOR SHORT TERM DISABILITY Encounters Encounter Location Date Provider Diagnosis [facility] [address] [place] [address] 07/04/2024 Waqas Diaz PLAN OF TREATMENT Next Appt Details Provider Name:Waqas Diaz , 08/30/2024 09:00:00 AM, [address], [address], [place], [address],
--- OUTSIDE RECORDS SUMMARY | 2024-07-13 15:58 | XMS_ITS ---
Author Organization [facility] Address [address] [place] [address] Care Team Providers Care Manager Collection Name Role Phone Valentino HATCH, [facility] Primary [facility] Provider Waqas Cash [phone] REASON FOR VISIT Needs labs and stool specimens PROBLEMS Problem Type ICD Code Onset Dates Problem Status W/U Status Risk SNOMED Code Notes Problem Rectal bleeding (K62.5) Active confirmed Rectal bleeding (73302416) Encounters Encounter Location Date Provider Diagnosis [facility] [address] [place] [address] 06/21/2024 Waaqs Diaz Diarrhea R19.7 ; Rectal bleeding K62.5 and Folate deficiency E53.8 ASSESSMENTS Encounter Date Diagnosis Assessment Notes Treatment Notes Treatment Clinical Notes 06/21/2024 Diarrhea (ICD-10 - R19.7) 06/21/2024 Rectal bleeding (ICD-10 - K62.5) 06/21/2024 Folate deficiency (ICD-10 - E53.8) PLAN OF TREATMENT Pending Test Test Name Order Date CHEM 7 PROFILE 06/21/2024 LIVER PROFILE 06/21/2024 CRP 06/21/2024 CBC w DIFF 06/21/2024 SED RATE (ESR) 06/21/2024 STOOL WBC 06/21/2024 C DIFFICILE RFLX PCR 06/21/2024 Folate 06/21/2024 Calprotectin, Fecal 06/21/2024 GI PANEL 06/21/2024 Next Appt Details Provider Name:Waqas Diaz , 08/30/2024 09:00:00 AM, [address], [address], [place], [address],
[2024-07-13 16:17] LABS: MANUAL DIFF FLAG NO
[2024-07-13 17:08] LABS: Basophils Absolute Auto 0.1 X10*3/uL (0.0-0.2); Basophils Percent Auto 1.1 % (0-2); Eosinophils Absolute Auto 0.3 X10*3/uL (0.0-0.4); Eosinophils Percent Auto 5.1 % (0-4); Hematocrit 28.9 % (42.0-52.0); Hemoglobin 9.6 g/dl (14.0-18.0); Imm Gran Abs Auto 0.02 X10*3/uL (0.00-0.03); Imm Gran Pct Auto 0.4 % (0.0-0.4); Lymphocytes Absolute Auto 1.3 X10*3/uL (1.2-4.9); Mean Corpuscular HGB Conc 33.2 g/dl (31.0-36.0); Mean Corpuscular Hemoglobin 32.3 pg (27.0-33.0); Mean Corpuscular Volume 97.3 fL (80.0-98.0); Mean Platelet Volume 9.7 fL (9.4-12.4); Monocytes Absolute Auto 0.5 X10*3/uL (0.1-1.2); Monocytes Percent Auto 9.7 % (2-11); Neutrophils Absolute Auto 3.3 x10*3/uL (2.0-8.3); Neutrophils Percent Auto 59.7 % (45-73); Platelet Count 246 X10*3/uL (160-400); Red Blood Count 2.97 X10*6/uL (4.60-5.80); Red Cell Distribution Width 12.5 % (11.0-16.0); White Blood Count 5.5 X10*3/uL (4.8-10.8)
[2024-07-13 17:43] LABS: Alanine Aminotransferase 17 U/L (0-40); Albumin Level 3.8 g/dL (3.5-5.0); Alkaline Phosphatase 119 U/L (39-117); Anion Gap 10 (12-20); Aspartate Amino Transferase 23 U/L (5-37); Bilirubin Direct 0.1 mg/dL (0.0-0.5); Bilirubin Total 0.4 mg/dL (0.0-1.0); Blood Urea Nitrogen 11 mg/dL (9-16); C Reactive Protein 0.24 mg/dL (< or = 0.50); Calcium 9.1 mg/dL (8.4-10.2); Carbon Dioxide 28 mmol/L (22-29); Chloride 105 mmol/L (96-108); Estimated Glomerular Filt Rate 59; Glucose Random 115 mg/dL (60-115); Potassium 4.1 mmol/L (3.3-5.1); Sodium 139 mmol/L (135-145); Total Protein 7.1 g/dL (6.5-8.0)
[2024-07-13 18:14] LABS: Folate 12.6 ng/mL (> or = 4.0)
[2024-07-13 18:34] LABS: Erythrocyte Sedimentation Rate 27 MM/HR (0-15)
== END 2024-07-13 15:55 | disposition home or self-care (01) ==
LOC: HO.LAB 15:54
PROVIDERS: PCP Internal Medicine; Visit Provider Internal Medicine
DX: R19.7 Diarrhea, unspecified (principal); K62.5 Hemorrhage of anus and rectum; E53.8 Deficiency of other specified B group vitamins
CPT/HCPCS: 36415; 80048; 80076; 82746; 85025; 85652; 86140

== ENCOUNTER 2024-07-23 14:38 | Outpatient (REF) | payer BC, SELFPAY ==
[2024-07-23 15:59] LABS: CDiff Gene PCR NEGATIVE (Negative)
--- OUTSIDE RECORDS SUMMARY | 2024-07-23 17:27 | XMS_ITS | Patient Health Record ---
Author Organization [facility] Address [address] [place] [address] Care Team Providers Care Transition Specialist Name Role Phone Valentino HATCH, Asma Primary Care Provider Waqas Cash [phone] ALLERGIES No Known Allergies RESULTS Component Value Reference Range Notes Ferritin Reviewed date:11/30/2023 10:36:54 PM Interpretation: Performing Lab:[facility], [address] [place] [phone] Notes/Report: Ferritin 92 20-250 ng/mL Complete Blood Count Auto Di ff Reviewed date:11/30/2023 10:33:50 PM Interpretation: Performing Lab:[facility], [address] [place] [phone] Notes/Report: White Blood Count 6.6 4.8-10.8 X10*3/uL [...] te Reviewed date:11/30/2023 10:33:58 PM Interpretation: Performing Lab:[address] [address] Notes/Report: Erythrocyte Sedimentation Rate 3 0-15 MM/HR Patients with polycythemia and many hemoglobin abnormalities may have depressed sed rates whereas patients with anemia may have elevated sed rates. Liver Panel Reviewed date:11/30/2023 10:34:46 PM Interpretation: Performing Lab:[address] [address] Notes/Report: Bilirubin Total 0.8 0.0-1.0 mg/dL Bilirubin Direct 0.3 0.0-0.5 mg/dL Aspartate Amino Transferase 26 5-37 U/L Alanine Aminotransferase 26 0-40 U/L Total Protein 7.1 6.5-8.0 g/dL Albumin Level 4.3 3.5-5.0 g/dL Alkaline Phosphatase 119 39-117 U/L Basic Metabolic Panel Reviewed date:11/30/2023 10:36:01 PM Interpretation: Performing Lab:[address] [address] Notes/Report: Sodium 140 135-145 mmol/L Potassium 4.2 3.3-5.1 mmol/L Chloride 104 96-108 mmol/L Carbon Dioxide 28 22-29 mmol/L Anion Gap 12 12-20 Blood Urea Nitrogen 14 9-16 mg/dL Creatinine 1.06 0.5-1.4 mg/dL Estimated Glomerular Filt Rate > 60 NOTE: For -Comor[place] individuals, multiply the result by 1.210. Chronic Kidney Disease: Estimated GFR < 60 mL/min/1.73m2 Severe Kidney Disease: Estimated GFR < 15 mL/min/1.73m2 Glucose Random 76 60-115 mg/dL Calcium 9.4 8.4-10.2 mg/dL IRON PROFILE Reviewed date:11/30/2023 10:36:11 PM Interpretation: Performing Lab:[facility], [address] [place] [phone] Notes/Report: Iron 173 45-160 mcg/dL Total Iron Binding Capacity 337 228-428 mcg/dL Percent Iron Saturation 51 15-50 % Unsaturated Iron Binding 164 C Reactive Protein Reviewed date:11/30/2023 10:36:20 PM Interpretation: Performing Lab:[facility], [address] [place] [address] Notes/Report: C Reactive Protein 0.11 < or = 0.50 mg/dL Vitamin B12 and Folate Reviewed date:12/06/2023 07:35:23 PM Interpretation: Performing Lab:[facility], [address] [place] [phone] Notes/Report: Vitamin B12 431 200-900 pg/mL NORMAL 200-900 PG/ML INDETERMINATE 160-199 PG/ML DEFICIENT < 160 PG/ML Folate 3.6 > or = 4.0 ng/mL Reference Values: > or = 4.0 ng/mL < 4.0 ng/mL suggests folate deficiency Methotrexate, aminopterin and folinic acid (leucovorin) are chemotherapeutic agents whose molecular structures are similar to folate; therefore, the Rebrander folate assay cannot be used for patients using these drugs. Immunoglobulin A Reviewed date:12/16/2023 07:07:04 PM Interpretation: Performing Lab:[facility], [address] [place] [phone] Notes/Report: Immunoglobulin A 293 47-310 mg/dL THIS TEST WAS PERFORMED AT: [facility] [address] [place] [phone] KERRY GRAHAM MD Transglutaminase Ab IgG Reviewed date:12/16/2023 07:07:18 PM Interpretation: Performing Lab:[facility], [address] [place] [phone] Notes/Report: Transglutaminase Ab IgG <1.0 Value Interpretation ----- <15.0 Antibody not detected > or = 15.0 Antibody detected THIS TEST WAS PERFORMED AT: [facility] [address] [place] [phone] KERRY GRAHAM MD Transglutaminase IgA Reviewed date:12/16/2023 07:07:30 PM Interpretation: Performing Lab:[facility], [address] [place] [phone] Notes/Report: Transglutaminase IgA <1.0 Value Interpretation ----- <15.0 Antibody not detected > or = 15.0 Antibody detected THIS TEST WAS PERFORMED AT: [facility] [address] [place] [phone] KERRY GRAHAM MD Gliadin Ab Panel Reviewed date:12/16/2023 07:07:47 PM Interpretation: Performing Lab:[facility], [address] [place] [phone] Notes/Report: Gliadin Deamidated IgA Ab <1.0 Value Interpretation ----- <15.0 Antibody not detected > or = 15.0 Antibody detected Gliadin Deamidated IgG Ab <1.0 Value Interpretation ----- <15.0 Antibody not detected > or = 15.0 Antibody detected THIS TEST WAS PERFORMED AT: [facility] [address] [place] [phone] KERRY GRAHAM MD Endomysial IgA rflx Titer Reviewed date:12/16/2023 07:08:03 PM Interpretation: Performing Lab:[facility], [address] [place] [phone] Notes/Report: Endomysial IgA Antibody Negative Negative THIS TEST WAS PERFORMED AT: [facility] [address] [place] [address] HAILEE ARTHUR MD,PHD Endomysial Titer TNP Pathology Reviewed date:12/21/2023 07:58:01 AM Interpretation: Performing Lab:[facility], [address] [place] [phone] Notes/Report: CT abdomen pelvis w con Reviewed date:01/12/2024 09:38:56 AM Interpretation: Performing Lab: Notes/Report: [address] [address] [place] Scan Report Signed Patient: Rodo Winslow MR#: [id number] : 1975 Acct:[id number] Age/Sex: 48 / M ADM Date: 01/03/24 Loc: HO.CT Attending Dr: Waqas Diaz MD Ordering Physician: Waqas Diaz MD Date of Service: 01/03/24 Procedure(s): CT abdomen pelvis w IV con Accession Number(s): [id number] cc: Waqas Diaz MD EXAMINATION: CT ABDOMEN [...] iterative reconstruction technique DLP: 294 mGy-cm FINDINGS: ELECTRICAL TECH/PROJECT MANAGER: Nonobstructive bowel pattern. L4-L5 and L5-S1 disc [...] in OV> 01/03/24 1630 DD/ 1400 TD/TT: Licensed Practical Nurse: Basic Metabolic Panel Reviewed date:01/12/2024 09:38:06 AM Interpretation: Performing Lab:[facility], [address] [place] [phone] Notes/Report: Sodium 141 135-145 mmol/L Potassium 3.9 3.3-5.1 mmol/L Chloride 103 96-108 mmol/L Carbon Dioxide 33 22-29 mmol/L Anion Gap 9 12-20 Blood Urea Nitrogen 13 9-16 mg/dL Creatinine 1.28 0.5-1.4 mg/dL Estimated Glomerular Filt Rate 60 NOTE: For -[place]or[place] individuals, multiply the result by 1.210. Chronic Kidney Disease: Estimated GFR < 60 mL/min/1.73m2 Severe Kidney Disease: Estimated GFR < 15 mL/min/1.73m2 Glucose Random 99 60-115 mg/dL Calcium 9.3 8.4-10.2 mg/dL Gastrin Reviewed date:01/24/2024 05:08:10 PM Interpretation: Performing Lab:[address] [address] Notes/Report: Gastrin 30 <=100 pg/mL Reference range applies to fasting specimens only. For additional information, please refer to [email or web address]/[email or web address] (This link is being provided for informational/ educational purposes only.) THIS TEST WAS PERFORMED AT: [facility]/[address] [address] HAILEE ARTHUR MD,PHD Pathology Reviewed date:01/29/2024 05:59:50 PM Interpretation: Performing Lab:[facility], [address] [place] [phone] Notes/Report: Leukocytes Stool Qualitative Reviewed date:01/27/2024 06:23:49 PM Interpretation: Performing Lab:[facility], [address] [place] [phone] Notes/Report: Leukocytes Stool Qualitative NEGATIVE NEGATIVE Cancelled Serology Reviewed date:01/27/2024 06:22:58 PM Interpretation: Performing Lab:[facility], [address] [place] [phone] Notes/Report: Cancelled Serology SEE NOTE THE FOLLOWING TESTS WERE CANCELLED: CDIFF REASON: STOOL IS FORMED, TEST NOT INDICATED Giardia Ag Stool EIA Reviewed date:02/05/2024 05:19:04 PM Interpretation: Performing Lab:[facility], [address] [place] [phone] Notes/Report: Giardia Ag Stool EIA SEE NOTE GIARDIA AG, EIA, STOOL Micro Number: [id number] Test Status: Final Specimen Source: Stool Specimen Quality: Adequate Giardia Result 1: Not Detected Reference Range: Not Detected NOTE: Due to intermittent shedding, one negative sample does not necessarily rule out the presence of a parasitic infection. THIS TEST WAS PERFORMED AT: [facility] [address] [address] KERRY GRAHAM MD Pancreatic Elastase-1 Reviewed date:02/10/2024 04:51:58 PM Interpretation: Performing Lab:[facility], [address] [place] [phone] Notes/Report: Pancreatic Elastase-1 >500 Adult and Pediatric Reference Ranges for Pancreatic Elastase-1: Normal: >200 mcg/g Moderate Pancreatic Insufficiency: 100-200 mcg/g Severe Pancreatic Insufficiency: <100 mcg/g Elastase-1 (E-1) assay results are expressed in mcg/g, which represent mcg E1/g feces. It is not necessary to interrupt enzyme substitution therapy. THIS TEST WAS PERFORMED AT: [facility] [address] [place] [address] BENNIE BEDOLLA MD,PHD,XIOMARA Fecal Fat Qualitative Reviewed date:02/10/2024 04:52:07 PM Interpretation: Performing Lab:[facility], [address] [place] [phone] Notes/Report: Fecal Fat Qualitative Normal Normal THIS TEST WAS PERFORMED AT: [facility] [address] [place] HAILEE ARTHUR MD,PHD Chymotrypsin, Stool Reviewed date:02/10/2024 04:52:23 PM Interpretation: Performing Lab:[facility], [address] [place] [phone] Notes/Report: Chymotrypsin, Stool 18.0 2.3-51.4 U/g This test was developed and its analytical performance characteristics have been determined by [employer]. It has not been cleared or approved by FDA. This assay has been validated pursuant to the CLIA regulations and is used for clinical purposes. THIS TEST WAS PERFORMED AT: [facility] [id number] [place] [phone] BENNIE BEDOLLA MD,PHD,XIOMARA Calprotectin, Fecal Reviewed date:02/10/2024 04:52:39 PM Interpretation: Performing Lab:[facility], [address] [place] [phone] Notes/Report: Calprotectin, Fecal 276 Reference Range: <50 [...] borderline values. THIS TEST WAS PERFORMED AT: [facility] [address] [place] [address] BENNIE BEDOLLA MD,PHD,XIOMARA Ova and Parasite Reviewed date:02/06/2024 11:13:36 PM Interpretation: Performing Lab:[facility], [address] [place] [phone] Notes/Report: Ova and Parasite SEE NOTE OVA AND PARASITES, CONC AND PERM SMEAR Micro Number: [id number] Test Status: Final Specimen Source: Stool Specimen Quality: Adequate CONCENTRATION 1: No ova or parasites seen TRICHROME 1: No ova or parasites seen Routine Ova and Parasite exam may not detect some parasites that occasionally cause diarrheal illness. Cryptosporidium Antigen and/or Cyclospora Isospora Exam may be ordered to detect these parasites. For additional information, please refer to https://education.[email or web address]/faq/BBN681 (This link is being provided for informational/ educational purposes only.) THIS TEST WAS PERFORMED AT: [facility] [address] [address] JOANIE HOGUE MD GI PANEL Reviewed date:01/27/2024 06:23:33 PM Interpretation: Performing Lab:[facility], [address] [place] [phone] Notes/Report: Campylobacter Not Detected Not Detect. Plesiomonas [...] is performed by Multiplexed PCR, utilizing the PPS Array. Complete Blood Count Auto Di ff (Not yet reviewed by provider) Interpretation: Performing Lab:[facility], [address] [place] [phone] Notes/Report: White Blood Count 5.5 4.8-10.8 X10*3/uL Red Blood Count 2.97 4.60-5.80 X10*6/uL Hemoglobin 9.6 14.0-18.0 g/dl Hematocrit 28.9 42.0-52.0 % Mean Corpuscular Volume 97.3 80.0-98.0 fL Mean Corpuscular Hemoglobin 32.3 27.0-33.0 pg Mean Corpuscular HGB Conc 33.2 31.0-36.0 g/dl Red Cell Distribution Width 12.5 11.0-16.0 % Platelet Count 246 160-400 X10*3/uL Mean Platelet Volume 9.7 9.4-12.4 fL Neutrophils Percent Auto 59.7 45-73 % Imm Gran Pct Auto 0.4 0.0-0.4 % Lymphocytes Percent Auto 24.0 20-40 % Monocytes Percent Auto 9.7 2-11 % Eosinophils Percent Auto 5.1 0-4 % Basophils Percent Auto 1.1 0-2 % NRBC Pct Auto 0.0 0.0-0.2 /100WBC Neutrophils Absolute Auto 3.3 2.0-8.3 x10*3/u L Imm Gran Abs Auto 0.02 0.00-0.03 X10*3/uL Lymphocytes Absolute Auto 1.3 1.2-4.9 X10*3/u L Monocytes Absolute Auto 0.5 0.1-1.2 X10*3/uL Eosinophils Absolute Auto 0.3 0.0-0.4 X10*3/u L Basophils Absolute Auto 0.1 0.0-0.2 X10*3/uL NRBC Abs Auto 0.000 0.0-0.012 X10*3/uL Erythrocyte Sedimentation Ra te Reviewed date:07/13/2024 07:08:00 PM Interpretation: Performing Lab:[facility], [address] [place] [phone] Notes/Report: Erythrocyte Sedimentation Rate 27 0-15 MM/HR Patients with polycythemia and many hemoglobin abnormalities may have depressed sed rates whereas patients with anemia may have elevated sed rates. Liver Panel Reviewed date:07/13/2024 07:07:38 PM Interpretation: Performing Lab:[address] [address] Notes/Report: Bilirubin Total 0.4 0.0-1.0 mg/dL Bilirubin Direct 0.1 0.0-0.5 mg/dL Aspartate Amino Transferase 23 5-37 U/L Alanine Aminotransferase 17 0-40 U/L Total Protein 7.1 6.5-8.0 g/dL Albumin Level 3.8 3.5-5.0 g/dL Alkaline Phosphatase 119 39-117 U/L Basic Metabolic Panel Reviewed date:07/13/2024 07:07:22 PM Interpretation: Performing Lab:[address] [address] Notes/Report: Sodium 139 135-145 mmol/L Potassium 4.1 3.3-5.1 mmol/L Chloride 105 96-108 mmol/L Carbon Dioxide 28 22-29 mmol/L Anion Gap 10 12-20 Blood Urea Nitrogen 11 9-16 mg/dL Creatinine 1.29 0.5-1.4 mg/dL Estimated Glomerular Filt Rate 59 Chronic Kidney Disease: Estimated GFR < 60 mL/min/1.73m2 Severe Kidney Disease: Estimated GFR < 15 mL/min/1.73m2 Glucose Random 115 60-115 mg/dL Calcium 9.1 8.4-10.2 mg/dL C Reactive Protein Reviewed date:07/13/2024 07:07:50 PM Interpretation: Performing Lab:[facility], [address] [place] [phone] Notes/Report: C Reactive Protein 0.24 < or = 0.50 mg/dL Folate Reviewed date:07/20/2024 05:23:21 PM Interpretation: Performing Lab:[facility], [address] [place] [address] Notes/Report: Folate 12.6 > or = 4.0 ng/mL Reference Values: > or = 4.0 ng/mL < 4.0 ng/mL suggests folate deficiency Methotrexate, aminopterin and folinic acid (leucovorin) are chemotherapeutic agents whose molecular structures are similar to folate; therefore, the Rebrander folate assay cannot be used for patients using these drugs. CDiff Gene PCR (Not yet revi ewed by provider) Interpretation: Performing Lab:[facility], [address] [place] [phone] Notes/Report: CDiff Gene PCR NEGATIVE Negative If C. difficile strongly suspected despite one negative test, a second test may be sent vs. empiric treatment for C. difficile infection. REASON FOR REFERRAL No Information MEDICATIONS Medication [...] 40 MG TAKE 1 CAPSULE BY MO UT EVERY DAY for 90 Active Vitamin D 50 MCG (1999 UT) [...] Rectal bleeding (K62.5) Active confirmed Rectal bleeding (09173228) Problem History of adenomatous polyp of colon (Z86.010) Active confirmed History o f adenomatous polyp of colon (370252706) Problem Diarrhea (R19.7) Active confirmed Diarr hea (25650362) Problem Abnormal findings on diagnostic imaging of other parts of digestive tract (R93.3) Active confirmed Imaging of gastrointestinal tract abnormal (992860535) Problem Helicobacter pylori [H. pylori] as the cause of diseases classified elsewhere (B96.81) Active confirmed Helicobac ter pylori (72574358) Problem Diverticulosis of large intestine without perforation or abscess without bleeding (K57.30) Active confirmed Diverticul ar disease of colon (200306103) Problem Abnormal weight loss (R63.4) Active confirmed Abnormal weight loss (489151458) Problem Duodenitis (K29.80) Active confirmed Du odenitis (86361271) Problem Rectal bleed (K62.5) Active confirmed Hemorrhage of rectum and anus (947241438) Problem Chronic gastric ulcer (K25.7) Active confirmed Chronic gastri c ulcer (13951511) Problem Chronic diarrhea (K52.9) Active confirmed Chronic diarrhe a (090127160) Problem Gastric ulcer (K25.9) Active confirmed Gastric ulcer (271356943) Problem Duodenal ulcer disease (K26.9) Active confirmed Duodenal ulc er disease (32451900) Problem Loss of weight (R63.4) Active confirmed Weight decrease d (337465725) Problem Gastroesophageal reflux disease with esophagitis without hemorrhage (K21.00) Active confirmed Gastroes ophageal reflux disease with esophagitis (disorder) (468245464) VITAL SIGNS Temperature 97.3 degrees Fahrenheit 11/30/2023 Blood pressure diastolic 00 mm Hg 03/01/2024 Height 5 ft 11 in in 03/01/2024 Blood pressure systolic 00 mm Hg 03/01/2024 Weight 163 lbs 03/01/2024 BMI 22.73 kg/m2 03/01/2024 Encounters Encounter Location Date Provider Diagnosis [facility] Outpatient [address] [place] [id number] 12/15/2023 Waqas Diaz Colon polyps K63.5 ; Diarrhea R19.7 ; Rectal bleeding K62.5 ; Weight loss R63.4 ; Diverticulosis of large intestine without perforation or abscess without bleeding K57.30 and Other hemorrhoids K64.8 [facility] Outpatient [address] [place] [id number] 01/13/2024 Waqas Diaz [facility] Outpatient [address] [place] [id number] 01/18/2024 Waqas Diaz Gastroesophageal ref lux disease with esophagitis without hemorrhage K21.00 ; Duodenitis K29.80 ; Duodenal ulcer disease K26.9 ; Gastric ulcer K25.9 ; Hiatal hernia K44.9 ; Abn findings-GI tract R93.3 and Weight loss R63.4 [facility] [address] [place] [phone] 11/30/2023 Waqas Diaz Diarrhea R19.7 ; Rec keeley bleed K62.5 and Loss of weight R63.4 [facility] [address] [place] [address] 03/01/2024 Waqas Diaz Diarrhea R19.7 ; Chr onic gastric ulcer K25.7 ; Helicobacter pylori [H. pylori] as the cause of diseases classified elsewhere B96.81 and History of adenomatous polyp of colon Z86.010 [facility] [address] [place] [address] 07/04/2024 Waqas Diaz [facility] [address] [place] [address] 12/01/2023 Waqas Diaz [facility] [address] [place] [phone] 12/01/2023 Waqas Diaz [facility] [address] [place] [address] 12/20/2023 Waqas Diaz Chronic diarrhea K52 .9 ; Abnormal weight loss R63.4 and Abnormal findings on diagnostic imaging of other parts of digestive tract R93.3 [facility] [address] [place] [phone] 01/15/2024 Waqas Diaz [facility] [address] [place] [address] 01/18/2024 Waqas Diaz [facility] [address] [place] [address] 01/19/2024 Waqas Diaz [facility] [address] [place] [address] 01/25/2024 Waqas Diaz [facility] [address] [place] [address] 02/03/2024 Waqas Diaz [facility] [address] [place] [address] 06/21/2024 Waqas Diaz Diarrhea R19.7 ; Rec keeley bleeding K62.5 and Folate deficiency E53.8 ASSESSMENTS Encounter Date Diagnosis Assessment Notes Treatment Notes Treatment Clinical Notes 12/15/2023 Diarrhea (ICD-10 - R19.7) 12/15/2023 Colon polyps (ICD-10 - K63.5) 01/18/2024 Duodenitis (ICD-10 - K29.80) 01/18/2024 Gastroesophageal reflux disease with esophagitis without hemorrhage (ICD-10 - K21.00) 11/30/2023 Diarrhea (ICD-10 - R19.7) Need clearance from the [facility] and/or [facility] Cardiology 11/30/2023 Rectal bleed (ICD-10 - K62.5) 03/01/2024 Diarrhea (ICD-10 - R19.7) 03/01/2024 Chronic gastric ulce r (ICD-10 - K25.7) 12/20/2023 Chronic diarrhea (ICD-10 - K52.9) 06/21/2024 Rectal bleeding (ICD-10 - K62.5) 06/21/2024 Diarrhea (ICD-10 - R19.7) 12/15/2023 Rectal bleeding (ICD-10 - K62.5) 01/18/2024 Duodenal ulcer disea se (ICD-10 - K26.9) 11/30/2023 Loss of weight (ICD- 10 - R63.4) 03/01/2024 Helicobacter pylori [H. pylori] as the cause of diseases classified elsewhere (ICD-10 - B96.81) 12/20/2023 Abnormal weight loss (ICD-10 - R63.4) [...] Test Name Order Date CHEM 7 PROFILE 12/20/2023 CHEM 7 PROFILE 06/21/2024 CHEM 7 PROFILE 11/30/2023 LIVER PROFILE 11/30/2023 LIVER PROFILE 06/21/2024 IRON + IBC (FE) 11/30/2023 CRP 11/30/2023 CRP 06/21/2024 VITAMIN B12 AND FOLATE 11/30/2023 CBC w DIFF 06/21/2024 CBC w DIFF 11/30/2023 SED RATE (ESR) 11/30/2023 SED RATE (ESR) 06/21/2024 STOOL WBC 12/20/2023 CELIAC PANEL #10 11/30/2023 CT ABD & PELVIS WITH CONTRAST 12/20/2023 STOOL WBC 06/21/2024 C DIFFICILE RFLX PCR 06/21/2024 C DIFFICILE RFLX PCR 12/20/2023 Complete Blood Count Auto Diff Folate 06/21/2024 Trypsin 12/20/2023 Giardia Ag Stool EIA 12/20/2023 Pancreatic Elastase-1 12/20/2023 Fecal Fat Qualitative 12/20/2023 Calprotectin, Fecal 06/21/2024 Calprotectin, Fecal 12/20/2023 Ova and Parasite 12/20/2023 CDiff Gene PCR 07/23/2024 GI PANEL 12/20/2023 GI PANEL 06/21/2024 Future Test Test Name Order Date COLONOSCOPY 11/30/2023 UPPER GI ENDOSCOPY 01/05/2024 Next Appt Details Provider Name:Waqas Diaz , 08/30/2024 09:00:00 AM, [address] [facility], [address], [place], [address], Insurance Providers Payer Name Payer Address Payer Phone Subscriber Number Group Number Insured Name Patient Relationship to Insured Coverage Start Date Coverage End Date [facility] [address] [place] [address] [id number] RODO WINSLOW Self - patient is the insured MEDICAL (GENERAL) HISTORY Medical History History ICD Code Mitral valve insufficiency-- scheduled for surgery for a mitral valve repair at [facility] on 04/24/2024--has initially been seeing Dr. Doherty but was then referred to [facility] for his surgery HTN Denies WA,DM,CVA,Lung disease,renal dise ase Chronic diarrhea-colonoscopy as below--negative [...] on 12/[address] scan at [facility]--- this appears to be an incidental finding as he is asymptomatic in that regard-reviewed with patient at the 03/01/24 OV Surgical History Surgery Date(Month/Year)
--- OUTSIDE RECORDS SUMMARY | 2024-07-23 17:27 | XMS_ITS ---
Author Organization [facility] Address [address] [place] [address] Care Team Providers Care Electrician Rectifier Maintenance Name Role Phone Valentino HATCH, [facility] Primary Care Provider Waqas Cash [phone] ALLERGIES No Known Allergies REASON FOR VISIT [...] (K25.7) Active confirmed Chronic gastri c ulcer (67154597) Problem Helicobacter pylori [H. pylori] as the cause of diseases classified elsewhere (B96.81) Active confirmed Helicobacter pylori (61050520) Problem History of adenomatous polyp of colon (Z86.010) Active confirmed History of adenomatous polyp of colon (263833184) VITAL SIGNS Blood pressure systolic 00 mm Hg 03/01/20 24 Blood pressure diastolic 00 mm Hg 024 Height 5 ft 11 in in 03/01/2024 Weight 163 lbs 03/01/2024 BMI 22.73 kg/m2 03/01/2024 Encounters Encounter Location Date Provider Diagnosis [facility] [address] [place] [address] 03/01/2024 Waqas Diaz Diarrhea R19.7 ; Chronic [...] 09:00:00 AM, [address], [address], [place], [address], Progress Notes * Examination Category Sub-Category Detail [...]
--- OUTSIDE RECORDS SUMMARY | 2024-07-23 17:27 | XMS_ITS ---
Author Organization [facility] Address [address] [place] [address] Care Team Providers Care Replacer Name Role Phone Valentino HATCH, [facility] Primary [facility] Provider Waqas Cash [phone] REASON FOR VISIT REQUESTING NOTE FOR SHORT TERM DISABILITY Encounters Encounter Location Date Provider Diagnosis [facility] [address] [place] [address] 07/04/2024 Waqas Diaz PLAN OF TREATMENT Next Appt Details Provider Name:Waqas Diaz , 08/30/2024 09:00:00 AM, [address], [address], [place], [address],
--- OUTSIDE RECORDS SUMMARY | 2024-07-23 17:27 | XMS_ITS ---
Author Organization [facility] Address [address] [place] [address] Care Team Providers Care Biodiesel Production Associate Name Role Phone Valentino HATCH, [facility] Primary [facility] Provider Waqas Cash [phone] REASON FOR VISIT Needs labs and stool specimens PROBLEMS Problem Type ICD Code Onset Dates Problem Status W/U Status Risk SNOMED Code Notes Problem Rectal bleeding (K62.5) Active confirmed Rectal bleeding (21339723) Encounters Encounter Location Date Provider Diagnosis [facility] [address] [place] [address] 06/21/2024 Waqas Diaz Diarrhea R19.7 ; Rectal bleeding K62.5 [...] Name:Waqas Diaz , 08/30/2024 09:00:00 AM, [address], [address], [place], [address],
[2024-07-23 19:26] LABS: Leukocytes Stool Qualitative NEGATIVE (NEGATIVE)
[2024-07-24 11:15] LABS: Adenovirus F 40/41 Not Detected (Not Detect.); Astrovirus Not Detected (Not Detect.); Campylobacter Not Detected (Not Detect.); Cryptosporidium Not Detected (Not Detect.); Cyclospora cayetanensis Not Detected (Not Detect.); E. coli EAEC Not Detected (Not Detect.); E. coli EPEC Not Detected (Not Detect.); E. coli ETEC Not Detected (Not Detect.); E. coli STEC Not Detected (Not Detect.); Entamoeba histolytica Not Detected (Not Detect.); Giardia lamblia Not Detected (Not Detect.); Norovirus GI/GII Not Detected (Not Detect.); Plesiomonas shigelloides Not Detected (Not Detect.); Rotavirus A Not Detected (Not Detect.); Salmonella Not Detected (Not Detect.); Sapovirus Not Detected (Not Detect.); Shigella sp./EIEC Not Detected (Not Detect.); Vibrio Not Detected (Not Detect.); Vibrio Cholerae Not Detected (Not Detect.); Yersinia enterocolitica Not Detected (Not Detect.)
[2024-07-29 03:08] LABS: Calprotectin, Fecal 390 mcg/g
== END 2024-07-23 14:39 | disposition home or self-care (01) ==
LOC: HO.LNP 14:38
PROVIDERS: Visit Provider Internal Medicine
DX: R19.7 Diarrhea, unspecified (principal); K62.5 Hemorrhage of anus and rectum; E53.8 Deficiency of other specified B group vitamins
CPT/HCPCS: 83993; 87493; 87507; 89055

== ENCOUNTER 2024-08-10 14:16 | Outpatient (REF) | payer BC, SELFPAY ==
[2024-08-10 14:29] LABS: MANUAL DIFF FLAG NO
[2024-08-10 15:14] LABS: Basophils Absolute Auto 0.1 X10*3/uL (0.0-0.2); Basophils Percent Auto 1.1 % (0-2); Eosinophils Absolute Auto 0.2 X10*3/uL (0.0-0.4); Eosinophils Percent Auto 4.1 % (0-4); Hematocrit 24.7 % (42.0-52.0); Hemoglobin 7.5 g/dl (14.0-18.0); Imm Gran Abs Auto 0.02 X10*3/uL (0.00-0.03); Imm Gran Pct Auto 0.4 % (0.0-0.4); Lymphocytes Absolute Auto 1.1 X10*3/uL (1.2-4.9); Lymphocytes Percent Auto 20.9 % (20-40); Mean Corpuscular HGB Conc 30.4 g/dl (31.0-36.0); Mean Corpuscular Hemoglobin 26.4 pg (27.0-33.0); Mean Platelet Volume 10.2 fL (9.4-12.4); Monocytes Absolute Auto 0.6 X10*3/uL (0.1-1.2); Neutrophils Absolute Auto 3.3 x10*3/uL (2.0-8.3); Neutrophils Percent Auto 61.5 % (45-73); Platelet Count 255 X10*3/uL (160-400); Red Blood Count 2.84 X10*6/uL (4.60-5.80); Red Cell Distribution Width 17.2 % (11.0-16.0); White Blood Count 5.4 X10*3/uL (4.8-10.8)
[2024-08-10 16:06] LABS: Vitamin B12 802 pg/mL (200-900)
[2024-08-10 16:48] LABS: Erythrocyte Sedimentation Rate 38 MM/HR (0-15)
[2024-08-10 17:40] LABS: Alanine Aminotransferase 17 U/L (0-40); Albumin Level 3.8 g/dL (3.5-5.0); Alkaline Phosphatase 105 U/L (39-117); Anion Gap 11 (12-20); Aspartate Amino Transferase 19 U/L (5-37); Bilirubin Direct 0.1 mg/dL (0.0-0.5); Bilirubin Total 0.3 mg/dL (0.0-1.0); Blood Urea Nitrogen 11 mg/dL (9-16); C Reactive Protein 0.28 mg/dL (< or = 0.50); Calcium 8.8 mg/dL (8.4-10.2); Carbon Dioxide 26 mmol/L (22-29); Chloride 106 mmol/L (96-108); Estimated Glomerular Filt Rate > 60; Glucose Random 98 mg/dL (60-115); Iron 12 mcg/dL (45-160); Percent Iron Saturation 3 % (15-50); Potassium 4.1 mmol/L (3.3-5.1); Sodium 139 mmol/L (135-145); Total Iron Binding Capacity 467 mcg/dL (228-428); Total Protein 7.3 g/dL (6.5-8.0); Unsaturated Iron Binding 455 ug/dL
[2024-08-10 17:57] LABS: Ferritin 7 ng/mL (20-250)
== END 2024-08-10 14:17 | disposition home or self-care (01) ==
LOC: HO.LAB 14:16
PROVIDERS: PCP Internal Medicine; Visit Provider Internal Medicine
DX: R19.7 Diarrhea, unspecified (principal); K62.5 Hemorrhage of anus and rectum; D64.9 Anemia, unspecified; K27.9 Peptic ulcer, site unspecified, unspecified as acute or chronic, without hemorrhage or perforation
CPT/HCPCS: 36415; 80048; 80076; 82607; 82728; 83540; 85025; 85652; 86140

== ENCOUNTER 2024-08-17 10:06 | Outpatient (REF) | payer BC, SELFPAY ==
[2024-08-17 13:23] LABS: MANUAL DIFF FLAG NO
[2024-08-17 13:41] LABS: Basophils Absolute Auto 0.1 X10*3/uL (0.0-0.2); Basophils Percent Auto 1.4 % (0-2); Eosinophils Absolute Auto 0.3 X10*3/uL (0.0-0.4); Eosinophils Percent Auto 4.4 % (0-4); Hematocrit 27.8 % (42.0-52.0); Hemoglobin 8.2 g/dl (14.0-18.0); Imm Gran Abs Auto 0.05 X10*3/uL (0.00-0.03); Imm Gran Pct Auto 0.8 % (0.0-0.4); Lymphocytes Percent Auto 31.4 % (20-40); Mean Corpuscular HGB Conc 29.5 g/dl (31.0-36.0); Mean Corpuscular Hemoglobin 25.9 pg (27.0-33.0); Mean Corpuscular Volume 87.7 fL (80.0-98.0); Mean Platelet Volume 10.4 fL (9.4-12.4); Monocytes Absolute Auto 0.8 X10*3/uL (0.1-1.2); Monocytes Percent Auto 12.3 % (2-11); Neutrophils Absolute Auto 3.1 x10*3/uL (2.0-8.3); Neutrophils Percent Auto 49.7 % (45-73); Platelet Count 271 X10*3/uL (160-400); Red Blood Count 3.17 X10*6/uL (4.60-5.80); Red Cell Distribution Width 20.5 % (11.0-16.0); White Blood Count 6.3 X10*3/uL (4.8-10.8)
[2024-08-17 14:24] LABS: Ferritin 16 ng/mL (20-250)
== END 2024-08-17 10:07 | disposition home or self-care (01) ==
LOC: HO.HMGCLDS 10:06
PROVIDERS: PCP Internal Medicine; Visit Provider Internal Medicine
DX: Z00.01 Encounter for general adult medical examination with abnormal findings (principal); D50.0 Iron deficiency anemia secondary to blood loss (chronic); I77.1 Stricture of artery; K27.9 Peptic ulcer, site unspecified, unspecified as acute or chronic, without hemorrhage or perforation; I51.7 Cardiomegaly; I34.0 Nonrheumatic mitral (valve) insufficiency; I34.1 Nonrheumatic mitral (valve) prolapse; R53.83 Other fatigue
CPT/HCPCS: 36415; 82728; 85025; 96127

== ENCOUNTER 2024-08-17 10:06 | Outpatient (AMB) | payer BC, SELFPAY ==
[2024-08-17 10:09] VITALS: BP 110/70; PULSE 66; O2SAT 98; BMI 24.8
--- NOTE | 2024-08-17 10:09 | MHC.PC.OV ---
Vital Signs 08/17/24 10:09 Height 5 ft 11 in Weight 178 lb BMI 24.8 BP 110/70 Blood Pressure Location Lt brachial Position Sitting Pulse 66 Pulse Source Pulse Oximeter Pulse Oximetry (%) 98 Oxygen Delivery Method Room Air Intake Visit Reasons: Annual PE Landing Worker Required: No Accompanied by: Self / Same As Patient Allergies No Known Allergies Allergy (Verified 08/17/24 10:09) Medication List - Last Reconciled 08/17/24 by Faye Avelar MD atenolol 25 mg PO DAILY cholecalciferol (vitamin D3) 50 mcg PO DAILY cyanocobalamin (vitamin B-12) (Vitamin B-12) 500 mcg PO DAILY diphenoxylate-atropine 2.5-0.025 mg tabs PO folic acid PO DAILY omeprazole mg PO DAILY valsartan 40 mg PO DAILY Tobacco use date assessed: 08/17/24 Dental Screening Dental Screen Date: 08/17/24 Did you have a dental visit in the last 12 months?: Yes Did you have a dental problem in the last 6 months where you did not have access to dental care?: No Was dental information given to patient?: Patient has dentist HPI Annual PE HPI Details Physical exam appointment - The patient is a 49-year-old male with a history of severe mitral valve prolapse with mitral regurgitation awaiting cardiac surgery He also have celiac disease stenosis, iron-deficiency anemia atrial enlargement left currently established with Gastroenterology Dr. Diaz and Cardiology Dr. 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 - Recent hemoglobin levels have dropped to 7.5, with a known history of gastrointestinal bleeding. - Previous upper and lower endoscopies indicate suspected colon polyps, necessitating further evaluation. - Delays in cardiac surgery have occurred due to initial surgeon unavailability after an accident and overbooked alternative surgeons. - Iron supplements at 65 mg were recently commenced, I recommend to increase the dose to 3 times a day - Concern over blood transfusion safety was addressed , transfusion will be arranged through Dr. Diaz office if hemoglobin continued to drop He already advised patient however today's CBC will determine the further course of action Health Maintenance - Encouragement to continue with iron supplementation, specifically 325 mg equivalent, three times daily. - Upcoming colonoscopy scheduled to investigate persistent gastrointestinal symptoms. - Blood transfusion recommendations due to anemia, ensuring blood screening compliance. - continue medications and follow up with the specialists Employment - The patient was let go from his job and plans to return once medical conditions are resolved. - Employment will resume post-surgery and full recovery. Patient Instructions - Increase iron supplement intake to three times daily. - Avoid iron intake two days before the colonoscopy. - Proceed with the recommended blood transfusion per Dr. Diaz's orders. - Ensure laboratory tests are completed promptly and check the patient portal for results. - Monitor weight changes and maintain a healthy diet. Review of Systems - General: No fever no chills - Neurological: No headaches no dizziness - Ear nose throat: No sore throat no hearing difficulty no ear pain - Cardiovascular: No syncope, no chest pain, no palpitations - Gastrointestinal: No nausea vomiting or diarrhea - Endocrine: No polyuria polydipsia no heat intolerance - Genitourinary: No dysuria - Skin: No new complaints Physical Exam General: Cooperative, healthy appearing, comfortable, no acute distress Orientation: Patient oriented x3 Head: Normal to inspection Ears: Within normal limit visually Nose: Normal external nose present Face and sinus: Normal facial exam Eyes: Appearance normal, extraocular movement intact pupils reactive Neck: Normal visual inspection and supple Respiratory: Normal respiratory effort and able to speak in complete sentences. Clear to auscultation, no stridor Cardiovascular: S1 and S2 murmur present GI: Normal to inspection. Soft to palpation and nontender Skin: Turgor normal, no acute findings, patient appears pale Neuro: Patient oriented x3, motor sensory intact, balance intact, tandem pass Extremities: Normal to inspection PFSH Medical History HTN (hypertension) Severe mitral regurgitation Surgical History H/O colonoscopy Family History Father No problems noted. Mother No problems noted. Social History Housing: House Alcohol intake: current Alcohol intake frequency: a few times a month Patient Tobacco Use Status: Former Tobacco user Tobacco use type: Cigarette Cigarettes Per Day: 6 e-Cigarette/Vaping Use: Never Used Current occupational status: employed Cognitive needs: No Hearing needs: No Vision needs: Yes Questionnaire PHQ-9 Over the last 2 weeks, how often have you been bothered by any of the following problems? 1. Little interest or pleasure in doing things: not at all 2. Feeling down, depressed, or hopeless: not at all 3. Trouble falling or staying asleep, or sleeping too much: not at all 4. Feeling tired or having little energy: nearly every day 5. Poor appetite or overeating: not at all 6. Feeling bad about yourself - or that you are a failure or have let yourself or your family down: not at all 7. Trouble concentrating on things, such as reading the newspaper or watching television: not at all 8. Moving or speaking so slowly that other people could have noticed. Or the opposite - being so fidgety or restless that you have been moving around a lot more than usual: not at all 9. Thoughts that you would be better off or of hurting yourself in some way: not at all Total score: 3 Depression Screening Interpretation: Negative Depression Screening Done: Yes 22097 - PHQ-9 Billing: Yes Source: Developed by Drs. Waqas Rutledge, Carol Colon, Oren Brown and colleagues, with an educational kayla from [employer]. Thrive Questionnaire Date Thrive assessed: 08/17/24 I am a: Patient What is your living situation today?: I have a steady place to live Within the past 12 months, did the food you bought not last and you didn't have the money to get more?: Never true Within the past 12 months, did you worry whether your food would run out before you got money to buy more?: Never true Do you have trouble paying for medicines?: No Do you have trouble getting transportation to medical appointments?: No Do you have trouble paying your heating and electricity bill?: No Do you have trouble taking care of your child, family member or friend?: No Do you have trouble with day-to-day activities such as bathing, preparing meals, shopping, managing finances, etc.?: No Are you currently unemployed and looking for a job?: No Are you interested in more education?: No Please select the resources that you would like help with: None Currently or been in a relationship where the following occur: No concerns reported THRIVE Score: 0 AUDIT C Alcohol Use Questionnaire (AUDIT-C) 1. How often do you have a drink containing alcohol?: Monthly or less 2. How many drinks containing alcohol do you have on a typical day when you are drinking?: 1 or 2 3. How often do you have six or more drinks on one occasion?: Never Total Score: 1 Score Reviewed/Action Taken: Yes SYBIL-7 AMB Questionnaire SYBIL-7 Date SYBIL - 7 assessed: 08/17/24 Feeling nervous, anxious, or on edge: 0 = Not at all Not being able to stop or control worryin = Not at all Worrying too much about different things: 0 = Not at all Trouble relaxin = Not at all Being so restless that it is hard to sit still: 0 = Not at all Becoming easily annoyed or irritable: 0 = Not at all Feeling afraid as if something awful might happen: 0 = Not at all Total SYBIL-7 score (0-4 normal; 5-9 mild; 10-14 moderate; 15-21 severe): 0 Source: Developed by Drs. Waqas Rutledge, Carol Colon, Oren Brown and colleagues, with an educational kayla from [employer]. SYBIL-7 Assessment Billing SYBIL-7 Assessment Tool: SYBIL-7 Assessment 30180 Physical exam (Primary Care) Vital Signs: Last Vital Signs Pulse 66 08/17/24 10:09 BP 110/70 08/17/24 10:09 Pulse Ox 98 08/17/24 10:09 Oxygen Delivery Method Room Air 08/17/24 10:09 BMI result Body Mass Index 24.8 Tobacco/Smoking Status: Tobacco use Status Tobacco use date assessed 08/17/24 08/17/24 10:12 Patient Tobacco Use Status Former Tobacco user 08/17/24 10:12 Tobacco use type Cigarette 08/17/24 10:12 e-Cigarette/Vaping Use Never Used 08/17/24 10:12 PHQ-9: PHQ-9 Score PHQ-9: Total score 3 08/17/24 10:12 Depression Screening Interpretation: Negative Thrive Assessment: Date of Thrive Assessment Date Thrive assessed 08/17/24 08/17/24 10:12 Currently or been in a relationship where the following occur: No concerns reported Coding Level of Care Code Est Pt Level 3 (22435) Est Pt Prev Care 40-64y(53559) Diagnoses Encounter for general adult medical examination with abnormal findings Z00.01 Iron deficiency anemia due to chronic blood loss D50.0 Iron deficiency anemia type: chronic blood loss Celiac artery stenosis I77.1 Peptic ulcer K27.9 Atrial enlargement, left I51.7 Mitral valve insufficiency, unspecified etiology I34.0 Cardiac valve disease etiology: etiology unspecified Mitral valve prolapse determined by imaging I34.1 Tired R53.83 Additional Codes SYBIL-7 Assessment Billing - SYBIL-7 Assessment Tool: SYBIL-7 Assessment 84309 ([id number]) PHQ-9 - 66206 - PHQ-9 Billing: Yes ([id number]) Assessment & Plan Assessment & Plan (1) Encounter for general adult medical examination with abnormal findings: Code(s): Z00.01 - Encounter for general adult medical examination with abnormal findings Category: Medical (2) Iron deficiency anemia: Code(s): D50.9 - Iron deficiency anemia, unspecified Category: Medical Qualifiers: Iron deficiency anemia type: chronic blood loss Qualified Code(s): D50.0 - Iron 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 (chronic) (3) Celiac artery stenosis: Code(s): I77.1 - Stricture of artery Category: Medical (4) Peptic ulcer: Code(s): K27.9 - Peptic ulcer, site unspecified, unspecified as acute or chronic, without hemorrhage or perforation Category: Medical (5) Atrial enlargement, left: Code(s): I51.7 - Cardiomegaly Category: Medical (6) Mitral regurgitation: Code(s): I34.0 - Nonrheumatic mitral (valve) insufficiency Category: Medical Qualifiers: Cardiac valve disease etiology: etiology unspecified Qualified Code(s): I34.0 - Nonrheumatic mitral (valve) insufficiency (7) Mitral valve prolapse determined by imaging: Code(s): I34.1 - Nonrheumatic mitral (valve) prolapse Category: Medical (8) Tired: Code(s): R53.83 - Other fatigue Category: Medical Plan Physical exam appointment - The patient is a 49-year-old male with a history of severe mitral valve prolapse with mitral regurgitation awaiting cardiac surgery He also have celiac disease stenosis, iron-deficiency anemia atrial enlargement left currently established with Gastroenterology Dr. Diaz and Cardiology Dr. 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 - Recent hemoglobin levels have dropped to 7.5, with a known history of gastrointestinal bleeding. - Previous upper and lower endoscopies indicate suspected colon polyps, necessitating further evaluation. - Delays in cardiac surgery have occurred due to initial surgeon unavailability after an accident and overbooked alternative surgeons. - Iron supplements at 65 mg were recently commenced, I recommend to increase the dose to 3 times a day - Concern over blood transfusion safety was addressed , transfusion will be arranged through Dr. Diaz office if hemoglobin continued to drop He already advised patient however today's CBC will determine the further course of action Health Maintenance - Encouragement to continue with iron supplementation, specifically 325 mg equivalent, three times daily. - Upcoming colonoscopy scheduled to investigate persistent gastrointestinal symptoms. - Blood transfusion recommendations due to anemia, ensuring blood screening compliance. - continue medications and follow up with the specialists Employment - The patient was let go from his job and plans to return once medical conditions are resolved. - Employment will resume post-surgery and full recovery. Patient Instructions - Increase iron supplement intake to three times daily. - Avoid iron intake two days before the colonoscopy. - Proceed with the recommended blood transfusion per Dr. Diaz's orders. - Ensure laboratory tests are completed promptly and check the patient portal for results. - Monitor weight changes and maintain a healthy diet. Orders: Orders Complete Blood Count Auto Diff Today D50.9 - Iron deficiency anemia, unspecified Ferritin Today D50.9 - Iron deficiency anemia, unspecified Medications: New ferrous sulfate 324 mg PO TID 90 days 270 tabs 0RF
== END 2024-08-17 10:35 | disposition home or self-care (01) ==
LOC: HO.HMCC 10:07
PROVIDERS: PCP Internal Medicine; Visit Provider Internal Medicine
DX: Z00.01 Encounter for general adult medical examination with abnormal findings (principal); D50.0 Iron deficiency anemia secondary to blood loss (chronic); I77.1 Stricture of artery; K27.9 Peptic ulcer, site unspecified, unspecified as acute or chronic, without hemorrhage or perforation; I51.7 Cardiomegaly; I34.0 Nonrheumatic mitral (valve) insufficiency; I34.1 Nonrheumatic mitral (valve) prolapse; R53.83 Other fatigue

== ENCOUNTER 2024-08-23 13:05 | Day surgery (SDC) | payer BC, SELFPAY ==
--- OUTSIDE RECORDS SUMMARY | 2024-07-31 06:27 | XMS_ITS | Patient Health Record ---
Author Organization [facility] Address [address] [place] [address] Care Team Providers Care Public Services Librarian Name Role Phone Valentino HATCH, Asma Primary Care Provider Waqas Cash [phone] Allergies No Known Allergies Results Component Value Reference Range Notes Ferritin Reviewed date:11/30/2023 10:36:54 PM Interpretation: Performing Lab:[facility], [address] [place] [phone] Notes/Report: Ferritin 92 20-250 ng/mL Complete Blood Count Auto Di ff Reviewed date:11/30/2023 10:33:50 PM Interpretation: Performing Lab:[facility], [address] [place] [phone] Notes/Report: White Blood Count 6.6 4.8-10.8 X10*3/uL [...] 0.0-0.2 /100WBC Neutrophils Absolute Auto 4.0 2.0-8.3 x10*3/uL Imm Gran Abs Auto 0.03 0.00-0.03 X10*3/uL Lymphocytes Absolute Auto 1.5 1.2-4.9 X10*3/uL Monocytes Absolute Auto 0.8 0.1-1.2 X10*3/uL Eosinophils Absolute Auto 0.2 0.0-0.4 X10*3/uL Basophils Absolute Auto 0.1 0.0-0.2 X10*3/uL NRBC Abs Auto 0.000 0.0-0.012 X10*3/uL Erythrocyte Sedimentation Ra te Reviewed date:11/30/2023 10:33:58 PM Interpretation: Performing Lab:[address] [address] Notes/Report: Erythrocyte Sedimentation Rate 3 0-15 MM/HR Patients with polycythemia and many hemoglobin abnormalities may have depressed sed rates whereas patients with anemia may have elevated sed rates. Liver Panel Reviewed date:11/30/2023 10:34:46 PM Interpretation: Performing Lab:[address] [address] Notes/Report: Bilirubin Total 0.8 0.0-1.0 mg/dL Bilirubin Direct 0.3 0.0-0.5 mg/dL Aspartate Amino Transferase 26 5-37 U/L Alanine Aminotransferase 26 0-40 U/L Total Protein 7.1 6.5-8.0 g/dL Albumin Level 4.3 3.5-5.0 g/dL Alkaline Phosphatase 119 39-117 U/L Basic Metabolic Panel Reviewed date:11/30/2023 10:36:01 PM Interpretation: Performing Lab:[address] [address] Notes/Report: Sodium 140 135-145 mmol/L Potassium 4.2 3.3-5.1 mmol/L Chloride 104 96-108 mmol/L Carbon Dioxide 28 22-29 mmol/L Anion Gap 12 12-20 Blood Urea Nitrogen 14 9-16 mg/dL Creatinine 1.06 0.5-1.4 mg/dL Estimated Glomerular Filt Rate > 60 NOTE: For -Gibraltarian individuals, multiply the result by 1.210. Chronic Kidney Disease: Estimated GFR < 60 mL/min/1.73m2 Severe Kidney Disease: Estimated GFR < 15 mL/min/1.73m2 Glucose Random 76 60-115 mg/dL Calcium 9.4 8.4-10.2 mg/dL IRON PROFILE Reviewed date:11/30/2023 10:36:11 PM Interpretation: Performing Lab:[facility], [address] [place] [phone] Notes/Report: Iron 173 45-160 mcg/dL Total Iron Binding Capacity 337 228-428 mcg/dL Percent Iron Saturation 51 15-50 % Unsaturated Iron Binding 164 C Reactive Protein Reviewed date:11/30/2023 10:36:20 PM Interpretation: Performing Lab:[facility], [address] [place] [phone] Notes/Report: C Reactive Protein 0.11 < or = 0.50 mg/dL Vitamin B12 and Folate Reviewed date:12/06/2023 07:35:23 PM Interpretation: Performing Lab:[facility], [address] [place] [phone] Notes/Report: Vitamin B12 431 200-900 pg/mL NORMAL 200-900 PG/ML INDETERMINATE 160-199 PG/ML DEFICIENT < 160 PG/ML Folate 3.6 > or = 4.0 ng/mL Reference Values: > or = 4.0 ng/mL < 4.0 ng/mL suggests folate deficiency Methotrexate, aminopterin and folinic acid (leucovorin) are chemotherapeutic agents whose molecular structures are similar to folate; therefore, the Contingents Supervisor folate assay cannot be used for patients using these drugs. Immunoglobulin A Reviewed date:12/16/2023 07:07:04 PM Interpretation: Performing Lab:[address] [address] Notes/Report: Immunoglobulin A 293 47-310 mg/dL THIS TEST WAS PERFORMED AT: [facility] [address] [place] [phone] KERRY GRAHAM MD Transglutaminase Ab IgG Reviewed date:12/16/2023 07:07:18 PM Interpretation: Performing Lab:[facility], [address] [place] [phone] Notes/Report: Transglutaminase Ab IgG <1.0 Value Interpretation ----- <15.0 Antibody not detected > or = 15.0 Antibody detected THIS TEST WAS PERFORMED AT: [facility] [address] [place] [place] [phone] KERRY GRAHAM MD Transglutaminase IgA Reviewed date:12/16/2023 07:07:30 PM Interpretation: Performing Lab:[facility], [address] [place] [phone] Notes/Report: Transglutaminase IgA <1.0 Value Interpretation ----- <15.0 Antibody not detected > or = 15.0 Antibody detected THIS TEST WAS PERFORMED AT: [facility] [address] [place] [phone] KERRY GRAHAM MD Gliadin Ab Panel Reviewed date:12/16/2023 07:07:47 PM Interpretation: Performing Lab:[facility], [address] [place] [phone] Notes/Report: Gliadin Deamidated IgA Ab <1.0 Value Interpretation ----- <15.0 Antibody not detected > or = 15.0 Antibody detected Gliadin Deamidated IgG Ab <1.0 Value Interpretation ----- <15.0 Antibody not detected > or = 15.0 Antibody detected THIS TEST WAS PERFORMED AT: [facility] [address] [place] [phone] KERRY GRAHAM MD Endomysial IgA rflx Titer Reviewed date:12/16/2023 07:08:03 PM Interpretation: Performing Lab:[facility], [address] [place] [phone] Notes/Report: Endomysial IgA Antibody Negative Negative THIS TEST WAS PERFORMED AT: [facility]/[address] [place] [address] HAILEE ARTHUR MD,PHD Endomysial Titer TNP Pathology Reviewed date:12/21/2023 07:58:01 AM Interpretation: Performing Lab:[facility], [address] [facility], [place] [address] Notes/Report: --- Name: Jose Winslow Age/Sex: 48/M : 1975 Unit#: [id number] Attend Dr: Waqas Diaz MD Re12/15/23 Status : [facility] Location: [facility] Disch: --- SPEC : [id number] RECD : 12/16/23 STATUS: KATELYN FLORES NUM: [id number] MAYELA: 12/15/23-14[address] [facility] [address]: Waqas Diaz MD ENTERED: 12/16/23-08 32 SP TYPE: Surgical OTHR DR: Faye Avelar MD ORDERED: HE Stain/15 , Gross Micro L4/5 Diagnosis A. Colon, ascending, biopsy: Colonic mucosa within normal limits; negative for microscopic colitis. B. Colon, descending , biopsy: Colonic mucosa within normal limits; negative for microscopic colitis. C. Colon, sigmoid, biopsy: Colonic mucosa within normal limits; negative for microscopic colitis. D. Colon, 20 cm, polypectomy: Tubular adenoma; negative for high-grade dysplasia or carcinoma. E. Rectum, biopsy: Rectal mucosa with mild vascular congestion; otherwise within normal limits. Clinical History Pre-Op Dx: Diarrhea, rectal bleeding, weight loss Post-Op Dx: Polyp, hemorrhoids Microscopic Description A-E. Microscopic sections reviewed. Material Received A. Ascending colon, rule out microscopic colitis B. Descending colon, rule out microscopic colitis C. Sigmoid colon D. Polyp @ 20 E. Rectal biopsies Gross Description Received in 5 parts. A. Received in forma kayla labeled ?ascending colon rule out microscopic colitis? are 2 fragments of klein-whi te soft tissue measuring 0.3 and 0.5 cm in greatest dimension which are wrapped in lens dick r and entirely submitted for microscopic examination, 2 pieces in cassette A. B. Received in forma kayla labeled ?descending colon rule out microscopic colitis? are 2 CONTINUED ON NEXT PAGE --- Name: Jose Winslow Age/Sex: 48/M : 1975 Unit#: [id number] Attend Dr: Waqas Diaz MD Re12/15/23 Status : [facility] Location: [facility] Disch: --- SPEC : [id number] RECD : 12/16/23 STATUS: KATELYN FLORES NUM: [id number] MAYELA: 12/15/23-[address] [facility] [address]: Waqas Diaz MD ENTERED: 12/16/23-08 32 SP TYPE: Surgical OTHR DR: Faye Avelar MD ORDERED: HE Stain/15 , Gross Micro L4/5 Gross Description (Continued) fragments of klein-whi te soft tissue measuring 0.1 and 0.3 cm in greatest dimension which are wrapped in lens dick r and entirely submitted for microscopic examination, 2 pieces in cassette B. C. Received in forma kayla labeled ?sigmoid colon? are 3 fragments of white soft tissue ranging from 0.3-0.4 cm in greatest dimension which are wrapped in lens paper and entirely submitted for microscopic examination, 3 pieces in cassette C. D. Received in forma kayla labeled ?polyp at 20? is a rounded fragment of smooth, klein soft tissue measuring 0.3 cm in diameter which is wrapped in lens paper and entirely submitted for microscopic examination, 1 piece in cassette D. E. Received in forma kayla labeled ?rectal biopsies? are 2 fragments of klein soft tissue measuring 0.2 and 0. 3 cm in greatest dimension which are wrapped in lens paper and entirely submitted for microscopic examination, 2 pieces in cassette E. [facility] Copies To: Faye Avelar MD [facility] [address] [place], [place] [phone] Waqas Diaz MD [facility] [address] [place] [address] [address] [place], [place] [phone] --- Signed (signature on file) Dakota Alberto MD 12/20/23 0933 --- END OF REPORT CT abdomen pelvis w con Reviewed date:01/12/2024 09:38:56 AM Interpretation: Performing Lab: Notes/Report: [address] [address] [address] Scan Report Signed Patient: Jose Winslow MR#: [id number] : 1975 Acct:[id number] Age/Sex: 48 / M ADM Date: 01/03/24 Loc: HO.CT Attending Dr: Waqas Diaz MD Ordering Physician: Waqas Diaz MD Date of Service: 01/03/24 Procedure(s): CT abdomen pelvis w IV con Accession Number(s): [id number] cc: Waqas Diaz MD EXAMINATION: CT ABDOMEN [...] iterative reconstruction technique DLP: 294 mGy-cm FINDINGS: MANAGER CLINICAL PHARMACY: Nonobstructive bowel pattern. L4-L5 and L5-S1 disc [...] in OV> 01/03/24 1630 DD/ 1400 TD/TT: Manufacturing Technology Professor: [address] [address] [address] Scan Report Signed Patient: Heath Winslow MR#: [id number] : 1975 Acct:[id number] Age/Sex: 48 / M ADM Date: 01/03/24 Loc: HO.CT Attending Dr: Waqas Diaz MD Ordering Physician: Waqas Diaz MD Date of Service: 01/03/24 Procedure(s): CT abdomen pelvis w IV con Accession Number(s): [id number] cc: Waqas Diaz MD EXAMINATION: CT ABDOMEN AND PELVI S WITH CONTRAST CLINICAL INFORMATION: Chronic diarrhea, abnormal weight loss COMPARISON: None available. TECHNIQUE: Multidetector volumetric images were obtained from the superior aspect of the liver through the pubic symphysis following administration 85 mL of Omnipaque 350 intravenous contrast. Sagittal and coronal reformatted images were obtained on the technologist's workstation. Oral contrast: No This CT examination was performed using dose optimization techniques as appropriate, various ly including the following: *Automated exposure control *Adjustment of mA and/or kV according to patient size (this includes techniques or standardized protocols for targeted exams where dose is matched to indication/reason for exam; i.e. extremities or head) *Use of iterative reconstruction technique DLP: 294 mGy-cm FINDINGS: MANAGER CLINICAL PHARMACY: Nonobstructiv e bowel pattern. L4-L5 and L5-S1 disc disease. LUNG BASES: The visualized lung bases are unremarkable. LIVER, GALLBLADDER, AND BILIARY TREE: The liver is normal in size, shape, and attenuati on. No focal hepatic lesion or biliary ductal dilatation is presen t. Gallbladder fundal thickening, question adenomyomatosis with mild fat stranding. PANCREAS: Unremarkable. SPLEEN: Unremarkable. ADRENAL GLANDS: Unremarkable. KIDNEYS AND URETERS: The kidneys are normal in size, shape, and attenuation. No hydronephrosis, hydroureter, or calculi seen. No perinephric stranding. BLADDER: Decompressed. GASTROINTESTINAL TRA CT: Small thick-walled hiatal hernia. Moderately distended stomach wi th contrast and debris. Question mild duodenal wall thickening. Nonobstructive bowel pattern. Unremarkable terminal ileum and appendix. Modera te fecal retention. ABDOMINAL WALL: No significant hernia is appreciated. LYMPH NODES: No pathologic lymphadenopathy. VASCULAR: Unremarkable. PELVIC VISCERA: Prostate calcifications and phleboliths. OSSEOUS STRUCTURES: L4-L5 and L5-S1 disc space narrowings.. CT/CT abdomen pelvis w IV con IMPRESSION: Question duodenal wa ll thickening. Question gallbladder adenomyomatosis with mild pericholecystic stranding. Fleischner guideline s were followed. Dictated By: Nelda Kerr MD Signed By: <Electronically signed by Nelda Kerr MD in OV> 01/03/24 1630 DD/ 1400 TD/TT: Manufacturing Technology Professor: Basic Metabolic Panel Reviewed date:01/12/2024 09:38:06 AM Interpretation: Performing Lab:[address] [address] Notes/Report: Sodium 141 135-145 mmol/L Potassium 3.9 3.3-5.1 mmol/L Chloride 103 96-108 mmol/L Carbon Dioxide 33 22-29 mmol/L Anion Gap 9 12-20 Blood Urea Nitrogen 13 9-16 mg/dL Creatinine 1.28 0.5-1.4 mg/dL Estimated Glomerular Filt Rate 60 NOTE: For -Gibraltarian individuals, multiply the result by 1.210. Chronic Kidney Disease: Estimated GFR < 60 mL/min/1.73m2 Severe Kidney Disease: Estimated GFR < 15 mL/min/1.73m2 Glucose Random 99 60-115 mg/dL Calcium 9.3 8.4-10.2 mg/dL Gastrin Reviewed date:01/24/2024 05:08:10 PM Interpretation: Performing Lab:[address] [address] Notes/Report: Gastrin 30 <=100 pg/mL Reference range applies to fasting specimens only. For additional information, please refer to https://education.Kyron.MollyWatr/faq/FAQ 202 (This link is being provided for informational/ educational purposes only.) THIS TEST WAS PERFORMED AT: [facility]/[address] HAILEE ARTHUR MD,PHD Pathology Reviewed date:01/29/2024 05:59:50 PM Interpretation: Performing Lab:[facility], [address] [place] [phone] Notes/Report: --- Name: Jose Winslow Age/Sex: 48/M : 1975 Unit#: [id number] Attend Dr: Waqas Diaz MD Re01/18/24 Status : [facility] Location: [facility] Disch: --- SPEC : [id number] RECD : 01/18/24-1350 STATUS: KATELYN FLORES NUM: [id number] MAYELA: 01/18/24-[address] [facility] [address]: Waqas Diaz MD ENTERED: 01/18/24-14 10 SP TYPE: Surgical OTHR DR: Faye Avelar MD ORDERED: HE Stain/12 , Gross Micro L4/4, IHC, Special st. 2/, H. pylori, AB/PAS/4 Diagnosis A. Duodenum, descending, biopsy: Chronic inactive duodenitis; negative for celiac disease. B. Stomach, antral ulcer, biopsy: Antral-type mucosa with severe chronic active/erosive inflammation; no Helicobacter organisms seen. C. Stomach, antrum, biopsy: - Antral-type mucosa with severe chronic active inflammation. - Positive for H pylori. D. EG junction, 39 c m, biopsy: - Cardiofundic-type mucosa with moderate chronic, focally active, inflammation; no intestinal metaplasi a seen. - Squamous mucosa within normal limits. Clinical History Pre-Op Dx: Abnormal findings on diagnostic imaging of other parts of digestive tract Post-Op Dx: Duodenum and gastric ulcers, esophagitis Microscopic Description A-D. Microscopic sections examined. No metaplastic changes are seen, supported by AB/PAS stains (A-D); Helicobacter organisms are seen, supported by H. pylori immunostain (C). Material Received A. Descending duoden um bx, r/o celiac B. Antral ulcers bx C. Gastric antrum bx D. EG junction bx at 39 Gross Description Received in 4 parts. A. Received in forma kayla labeled ?descending duodenum biopsy R/O celiac? are 5 fragments of klein-white soft tissu e measuring 0.2-0.4 cm in greatest dimension which are entirely submitted for microscopic examination, 5 pieces in cassette A. B. Received in forma kayla labeled ?antral ulcer biopsy? are 4 fragments of klein-white soft tissue measuring 0.3-0.4 cm in greatest dimension which are entirely submitted for CONTINUED ON NEXT PAGE --- Name: Jose Winslow Age/Sex: 48/M : 1975 Unit#: [id number] Attend Dr: Waqas Diaz MD Re01/18/24 Status : [facility] Location: [facility] Disch: --- SPEC : [id number] RECD : 01/18/24 STATUS: KATELYN FLORES NUM: [id number] MAYELA: 01/18/24-[address] [facility] [address]: Waqas Diaz MD ENTERED: 01/18/24-14 10 SP TYPE: Surgical OTHR DR: Faye Avelar MD ORDERED: HE Stain/12 , Gross Micro L4/4, IHC, Special st. 2, H. pylori, AB/PAS/4 Gross Description (Continued) microscopic examination, 4 pieces in cassette B. C. Received in forma kayla labeled ?gastric antrum biopsy? are 4 fragments of white soft tissue ranging from 0.3-0.4 cm in greatest dimension which are entirely submitted for microscopic examination, 4 pieces in cassette C. D. Received in forma kayla labeled ?EG junction biopsy at 39? are 3 fragments of white soft tissue measuring 0.2-0.3 cm in greatest dimension which are entirely submitted for microscopic examination, 3 pieces in cassette D. [facility] Special studies orde red and performed: Immunostain for H. pylori on C; AB/PAS stains on A, B, C and D Copies To: Faye Avelar MD [facility] [place] [address] [place], [place] [phone] Waqas Diaz MD [facility] [address] [place] [address] --- Signed (signature on file) Dakota Alberto MD 01/20/24 1454 --- END OF REPORT Leukocytes Stool Qualitative Reviewed date:01/27/2024 06:23:49 PM Interpretation: Performing Lab:[facility], [address] [place] [phone] Notes/Report: Leukocytes Stool Qualitative NEGATIVE NEGATIVE Cancelled Serology Reviewed date:01/27/2024 06:22:58 PM Interpretation: Performing Lab:[facility], [address] [place] [phone] Notes/Report: Cancelled Serology SEE NOTE THE FOLLOWING TESTS WERE CANCELLED: CDIFF REASON: STOOL IS FORMED, TEST NOT INDICATED Giardia Ag Stool EIA Reviewed date:02/05/2024 05:19:04 PM Interpretation: Performing Lab:[facility], [address] [place] [phone] Notes/Report: Giardia Ag Stool EIA SEE NOTE GIARDIA AG, EIA, STOOL Micro Number: [id number] Test Status: Final Specimen Source: Stool Specimen Quality: Adequate Giardia Result 1: Not Detected Reference Range: Not Detected NOTE: Due to intermittent shedding, one negative sample does not necessarily rule out the presence of a parasitic infection. THIS TEST WAS PERFORMED AT: [facility] [address] [place] [place] [phone] KERRY GRAHAM MD Pancreatic Elastase-1 Reviewed date:02/10/2024 04:51:58 PM Interpretation: Performing Lab:[address] [address] Notes/Report: Pancreatic Elastase-1 >500 Adult and Pediatric Reference Ranges for Pancreatic Elastase-1: Normal: >200 mcg/g Moderate Pancreatic Insufficiency: 100-200 mcg/g Severe Pancreatic Insufficiency: <100 mcg/g Elastase-1 (E-1) assay results are expressed in mcg/g, which represent mcg E1/g feces. It is not necessary to interrupt enzyme substitution therapy. THIS TEST WAS PERFORMED AT: [facility] [id number] [place] [phone] BENNIE BEDOLLA MD,PHD,XIOMARA Fecal Fat Qualitative Reviewed date:02/10/2024 04:52:07 PM Interpretation: Performing Lab:[facility], [address] [place] [phone] Notes/Report: Fecal Fat Qualitative Normal Normal THIS TEST WAS PERFORMED AT: [facility] [address] [place], [place] HAILEE ARTHUR MD,PHD Chymotrypsin, Stool Reviewed date:02/10/2024 04:52:23 PM Interpretation: Performing Lab:[address] [address] Notes/Report: Chymotrypsin, Stool 18.0 2.3-51.4 U/g This test was developed and its analytical performance characteristics have been determined by [employer]. It has not been cleared or approved by FDA. This assay has been validated pursuant to the CLIA regulations and is used for clinical purposes. THIS TEST WAS PERFORMED AT: [facility] [address] [place] [phone] BENNIE BEDOLLA MD,PHD,XIOMARA Calprotectin, Fecal Reviewed date:02/10/2024 04:52:39 PM Interpretation: Performing Lab:[address] [address] Notes/Report: Calprotectin, Fecal 276 Reference Range: <50 [...] borderline values. THIS TEST WAS PERFORMED AT: [facility] [address] [place] [phone] BENNIE BEDOLLA MD,PHD,XIOMARA Ova and Parasite Reviewed date:02/06/2024 11:13:36 PM Interpretation: Performing Lab:[facility], [address] [place] [phone] Notes/Report: Ova and Parasite SEE NOTE OVA AND PARASITES, CONC AND PERM SMEAR Micro Number: [id number] Test Status: Final Specimen Source: Stool Specimen Quality: Adequate CONCENTRATION 1: No ova or parasites seen TRICHROME 1: No ova or parasites seen Routine Ova and Parasite exam may not detect some parasites that occasionally cause diarrheal illness. Cryptosporidium Antigen and/or Cyclospora Isospora Exam may be ordered to detect these parasites. For additional information, please refer to https://education.[employer]/faq/FAQ 203 (This link is being provided for informational/ educational purposes only.) THIS TEST WAS PERFORMED AT: [facility] [address] [phone] JOANIE HOGUE MD GI PANEL Reviewed date:01/27/2024 06:23:33 PM Interpretation: Performing Lab:[facility], [address] [place] [phone] Notes/Report: Campylobacter Not Detected Not Detect. Plesiomonas [...] is performed by Multiplexed PCR, utilizing the [employer] Array. Complete Blood Count Auto Di ff (Not yet reviewed by provider) Interpretation: Performing Lab:[facility], [address] [place] [phone] Notes/Report: White Blood Count 5.5 4.8-10.8 X10*3/uL [...] 0.0-0.2 /100WBC Neutrophils Absolute Auto 3.3 2.0-8.3 x10*3/uL Imm Gran Abs Auto 0.02 0.00-0.03 X10*3/uL Lymphocytes Absolute Auto 1.3 1.2-4.9 X10*3/uL Monocytes Absolute Auto 0.5 0.1-1.2 X10*3/uL Eosinophils Absolute Auto 0.3 0.0-0.4 X10*3/uL Basophils Absolute Auto 0.1 0.0-0.2 X10*3/uL NRBC Abs Auto 0.000 0.0-0.012 X10*3/uL Erythrocyte Sedimentation Ra te Reviewed date:07/13/2024 07:08:00 PM Interpretation: Performing Lab:[facility], [address] [place] [phone] Notes/Report: Erythrocyte Sedimentation Rate 27 0-15 MM/HR Patients with polycythemia and many hemoglobin abnormalities may have depressed sed rates whereas patients with anemia may have elevated sed rates. Liver Panel Reviewed date:07/13/2024 07:07:38 PM Interpretation: Performing Lab:[address] [address] Notes/Report: Bilirubin Total 0.4 0.0-1.0 mg/dL Bilirubin Direct 0.1 0.0-0.5 mg/dL Aspartate Amino Transferase 23 5-37 U/L Alanine Aminotransferase 17 0-40 U/L Total Protein 7.1 6.5-8.0 g/dL Albumin Level 3.8 3.5-5.0 g/dL Alkaline Phosphatase 119 39-117 U/L Basic Metabolic Panel Reviewed date:07/13/2024 07:07:22 PM Interpretation: Performing Lab:[address] [address] Notes/Report: Sodium 139 135-145 mmol/L Potassium 4.1 [...] Protein Reviewed date:07/13/2024 07:07:50 PM Interpretation: Performing Lab:[facility], [address] [place] [phone] Notes/Report: C Reactive Protein 0.24 < or = 0.50 mg/dL Folate Reviewed date:07/20/2024 05:23:21 PM Interpretation: Performing Lab:[facility], [address] [place] [phone] Notes/Report: Folate 12.6 > or = 4.0 ng/mL Reference Values: > or = 4.0 ng/mL < 4.0 ng/mL suggests folate deficiency Methotrexate, aminopterin and folinic acid (leucovorin) are chemotherapeutic agents whose molecular structures are similar to folate; therefore, the Contingents Supervisor folate assay cannot be used for patients using these drugs. Leukocytes Stool Qualitative Reviewed date:07/24/2024 12:40:57 PM Interpretation: Performing Lab:[facility], [address] [place] [phone] Notes/Report: Leukocytes Stool Qualitative NEGATIVE NEGATIVE Calprotectin, Fecal Reviewed date:07/29/2024 04:12:47 PM Interpretation: Performing Lab:[facility], [address] [place] [phone] Notes/Report: Calprotectin, Fecal 390 Reference Range: <50 Normal 50-120 Borderline >120 Elevated Calprotectin in Crohn's disease and ulcerative colitis can be five to several thousand times above the reference population (50 mcg/g or less). Levels are usually 50 mcg/g or less in healthy patients and with irritable bowel syndrome. Repeat testing in 4-6 weeks is suggested for borderline values. THIS TEST WAS PERFORMED AT: [facility] [address] [place] [address] BENNIE BEDOLLA MD,PHD,XIOMARA CDiff Gene PCR Reviewed date:07/29/2024 04:12:58 PM Interpretation: Performing Lab:[facility], [address] [place] [id number] Notes/Report: CDiff Gene PCR NEGATIVE Negative If C. difficile strongly suspected despite one negative test, a second test may be sent vs. empiric treatment for C. difficile infection. GI PANEL Reviewed date:07/24/2024 12:40:48 PM Interpretation: Performing Lab:[facility], [address] [place] [address], [place] [address] Notes/Report: Campylobacter Not Detected Not Detect. Plesiomonas [...] viability. Additionally, some organisms may be carried asymptomatically. Detection of organism targets does not imply [...] is performed by Multiplexed PCR, utilizing the [employer] Array. Reason For Referral No Information Medications Medication SIG (Take, Route, Frequency, Duration) Notes [...] 40 MG TAKE 1 CAPSULE BY MO RUST EVERY DAY for 90 Active Vitamin D 50 MCG (1999) 1 tablet Orally Once a day Active Vitamin B 12 250 MCG 2 lozenges Orally O nce a day for 30 day(s) Active Immunizations Vaccine Route Administration Date Status Comme nts Influenza Unknown 04/12/2023 Administered Social History Tobacco Use: Social History Observation Description Date Details (start date - stop date) Current Smoker NA - NA Tobacco Use/Smoking Question Answer Notes Patient is [...] drinks (0 point) Points 2 Interpretation Negative Section Notes: Smoker; no sig alcohol Smoker; no sig alcohol Problems Problem Type SNOMED Code ICD Code Onset Dates Problem Status W/U Status Risk Notes Problem Rectal bleeding (63389858) Rectal bleeding (K62.5) Active confirmed Problem History of adenomatous polyp of colon (046060177) History of adenomatous polyp of colon (Z86.010) Active confirmed Problem Diarrhea (62550769) Diarrhea (R19.7) Active con firmed Problem Imaging of gastrointestinal tract abnormal (838789100) Abnormal findings on diagnostic imaging of other parts of digestive tract (R93.3) Active confirmed Problem Helicobacter pylori (71736730) Helicobacter pylori [H. pylori] as the cause of diseases classified elsewhere (B96.81) Active confirmed Problem Diverticular disease of colon (260863804) Diverticulosis of large intestine without perforation or abscess without bleeding (K57.30) Active confirmed Problem Abnormal weight loss (309429380) Abnormal weight loss (R63.4) Active confirmed Problem Duodenitis (06408786) Duodenitis (K29.80) Active confirmed Problem Hemorrhage of rectum and anus (785000156) Rectal bleed (K62.5) Active confirmed Problem Anemia (341156394) Anemia (D64.9) Active confir med Problem Peptic ulcer disease (74509779) Peptic ulcer disease (K27.9) Active confirmed Problem Chronic gastric ulcer (64479218) Chronic gastric ulcer (K25.7) Active confirmed Problem Chronic diarrhea (353207194) Chronic diarrhea (K52.9) Active confirmed Problem Gastric ulcer (793460873) Gastric ulcer (K25.9) Active confirmed Problem Duodenal ulcer disease (73842266) Duodenal ulcer disease (K26.9) Active confirmed Problem Weight decreased (726034574) Loss of weight (R63.4) Active confirmed Problem Gastroesophageal reflux disease with esophagitis (disorder) (309585121) Gastroesophageal reflux disease with esophagitis without hemorrhage (K21.00) Active confirmed Vital Signs Temperature 97.3 degrees Fahrenheit 11/30/2023 Blood pressure diastolic 00 mm Hg 03/01/2024 Height 5 ft 11 in in 03/01/2024 Blood pressure systolic 00 mm Hg 03/01/2024 Weight 163 lbs 03/01/2024 BMI 22.73 kg/m2 03/01/2024 Procedures Procedure Date Ordered Date Performed Result Body Sit e UPPER GI ENDOSCOPY 07/24/2024 N/A COLONOSCOPY 07/24/2024 N/A Encounters Encounter Location Date Provider Diagnosis [facility] Outpatient [address] [place] [phone] 12/15/2023 Waqas Diaz Colon polyps K63.5 ; Diarrhea R19.7 ; Rectal bleeding K62.5 ; Weight loss R63.4 ; Diverticulosis of large intestine without perforation or abscess without bleeding K57.30 and Other hemorrhoids K64.8 [facility] Outpatient [address] [place] [id number] 01/18/2024 Waqas Diaz Gastroesophageal ref lux disease with esophagitis without hemorrhage K21.00 ; Duodenitis K29.80 ; Duodenal ulcer disease K26.9 ; Gastric ulcer K25.9 ; Hiatal hernia K44.9 ; Abn findings-GI tract R93.3 and Weight loss R63.4 [facility] [address] [place] [phone] 11/30/2023 Waqas Diaz Diarrhea R19.7 ; Rec keeley bleed K62.5 and Loss of weight R63.4 [facility] [address] [place] [phone] 03/01/2024 Waqas Diaz Diarrhea R19.7 ; Chr onic gastric ulcer K25.7 ; Helicobacter pylori [H. pylori] as the cause of diseases classified elsewhere B96.81 and History of adenomatous polyp of colon Z86.010 [facility] [address] [place] [phone] 07/24/2024 Waqas Diaz Diarrhea R19.7 ; Rec keeley bleeding K62.5 ; Anemia D64.9 and Peptic ulcer disease K27.9 [facility] [address] [place] [phone] 12/01/2023 Waqas Diaz [facility] [address] [place] [id number] 12/01/2023 Waqas Diaz [facility] [address] [place] [phone] 12/20/2023 Waqas Diaz Chronic diarrhea K52 .9 ; Abnormal weight loss R63.4 and Abnormal findings on diagnostic imaging of other parts of digestive tract R93.3 [facility] [address] [place] [phone] 01/15/2024 Waqas Diaz [facility] [address] [place] [phone] 01/18/2024 Waqas Diaz [facility] [address] [place] [phone] 01/19/2024 Waqas Diaz [facility] [address] [place] [phone] 01/25/2024 Waqas Diaz [facility] [address] [place] [phone] 02/03/2024 Waqas Diaz [facility] [address] [place] [phone] 06/21/2024 Waqas Diaz Diarrhea R19.7 ; Rec keeley bleeding K62.5 and Folate deficiency E53.8 [facility] [address] [place] [address] 07/04/2024 Waqas Diaz Assessments Encounter Date Diagnosis (ICD Code) Assessment Notes Treatment Notes Treatment Clinical Notes Section Notes 12/15/2023 Diarrhea (ICD-10 - R19.7) 12/15/2023 Colon polyps (ICD-10 - K63.5) 01/18/2024 Duodenitis (ICD-10 - K29.80) 01/18/2024 Gastroesophageal reflux disease with esophagitis without hemorrhage (ICD-10 - K21.00) 11/30/2023 Diarrhea (ICD-10 - R19.7) Need clearance from the [facility] and/or [facility] Cardiology Given Heath's clinical history and appearance I do feel he that he obviously has a significant GI process occurring. Given the description of his symptoms, I would be most concerned about some underlying inflammatory bowel disease. Another possibility, although somewhat less likely given the longevity and description of his symptoms. would be that of a colon neoplasm. Celiac disease with its chronic diarrhea and weight loss as the disease progresses could certainly be an etiology as well. At this point I recommended he undergo a colonoscopy in the very near future to try to make a definitive diagnosis and initiate treatment. Full consent was obtained from him for this, including risks of bleeding and perforation. The procedure will be done with monitored anesthesia care. He will also have the below labs tests for further evaluation of his significant symptoms. We will also be in touch with his [facility] and [facility] cardiologists to obtain some information and clearance for the procedure. Heath was comfortable with this plan. Thank you again for allowing me to participate in Heath's care. I shall continue to keep you advised of his progress. 11/30/2023 Rectal bleed (ICD-10 - K62.5) Given Heath's clinical history and appearance I do feel he that he obviously has a significant GI process occurring. Given the description of his symptoms, I would be most concerned about some underlying inflammatory bowel disease. Another possibility, although somewhat less likely given the longevity and description of his symptoms. would be that of a colon neoplasm. Celiac disease with its chronic diarrhea and weight loss as the disease progresses could certainly be an etiology as well. At this point I recommended he undergo a colonoscopy in the very near future to try to make a definitive diagnosis and initiate treatment. Full consent was obtained from him for this, including risks of bleeding and perforation. The procedure will be done with monitored anesthesia care. He will also have the below labs tests for further evaluation of his significant symptoms. We will also be in touch with his [facility] and [facility] cardiologists to obtain some information and clearance for the procedure. Heath was comfortable with this plan. Thank you again for allowing me to participate in Heath's care. I shall continue to keep you advised of his progress. 03/01/2024 Diarrhea (ICD-10 - R19.7) Overall, Heath appears well at the present time with significant improvement in his previous diarrhea and weight loss. I advised him that I do not have a definitive etiology for the previous issue given the negative workup, but at this point he is much better from a symptomatic standpoint the simple use of Lomotil. As such, I did advise him to continue that for the time being and we will continue to observe things. If things relapse we may want to get some other studies including either a MRI or CT scan with small bowel enterography and/or a small bowel video capsule study. We did review the upper endoscopy findings. At this point I have recommended holding off on treating the H. pylori as I do not want to induce diarrhea from the antibiotics as he is much better than he was previously in regard to the diarrhea. He also has his upcoming mitral valve surgery in early April and I don't want him to have any problems from a GI standpoint prior to that surgery. I did advise him that we can review the H. pylori when I see him next year and decide about treatment at that time. In the meantime I did advise him to continue his daily omeprazole and avoid aspirin, NSAIDs, tobacco, and alcohol. We also reviewed the need for a follow up colonoscopy in 2028 for further screening. We did discuss the issue with the celiac artery but at this time I advised him that seems to be an incidental finding and I would not pursue any type of surgical correction for that unless he becomes symptomatic with significant postprandial upper abdominal pain, anorexia, and weight loss. I've given Heath an appointment to see me again in the early Spring for followup but advised him to contact me prior to that if he has any problems that I can be of assistance with. Heath was comfortable with this plan. Thank you again for allowing me to participate in Heath's care. I shall continue to keep you advised of his progress. 03/01/2024 Chronic gastric ulcer (ICD-10 - K25.7) Overall, Heath appears well at the present time with significant improvement in his previous diarrhea and weight loss. I advised him that I do not have a definitive etiology for the previous issue given the negative workup, but at this point he is much better from a symptomatic standpoint the simple use of Lomotil. As such, I did advise him to continue that for the time being and we will continue to observe things. If things relapse we may want to get some other studies including either a MRI or CT scan with small bowel enterography and/or a small bowel video capsule study. We did review the upper endoscopy findings. At this point I have recommended holding off on treating the H. pylori as I do not want to induce diarrhea from the antibiotics as he is much better than he was previously in regard to the diarrhea. He also has his upcoming mitral valve surgery in early April and I don't want him to have any problems from a GI standpoint prior to that surgery. I did advise him that we can review the H. pylori when I see him next year and decide about treatment at that time. In the meantime I did advise him to continue his daily omeprazole and avoid aspirin, NSAIDs, tobacco, and alcohol. We also reviewed the need for a follow up colonoscopy in 2028 for further screening. We did discuss the issue with the celiac artery but at this time I advised him that seems to be an incidental finding and I would not pursue any type of surgical correction for that unless he becomes symptomatic with significant postprandial upper abdominal pain, anorexia, and weight loss. I've given Heath an appointment to see me again in the early Spring for followup but advised him to contact me prior to that if he has any problems that I can be of assistance with. Heath was comfortable with this plan. Thank you again for allowing me to participate in Heath's care. I shall continue to keep you advised of his progress. 07/24/2024 Rectal bleeding (ICD-10 - K62.5) 07/24/2024 Diarrhea (ICD-10 - R19.7) 12/20/2023 Chronic diarrhea (ICD-10 - K52.9) 06/21/2024 Rectal bleeding (ICD-10 - K62.5) 06/21/2024 Diarrhea (ICD-10 - R19.7) 12/15/2023 Rectal bleeding (ICD-10 - K62.5) 01/18/2024 Duodenal ulcer disease (ICD-10 - K26.9) 11/30/2023 Loss of weight (ICD-10 - R63.4) Given Heath's clinical history and appearance I do feel he that he obviously has a significant GI process occurring. Given the description of his symptoms, I would be most concerned about some underlying inflammatory bowel disease. Another possibility, although somewhat less likely given the longevity and description of his symptoms. would be that of a colon neoplasm. Celiac disease with its chronic diarrhea and weight loss as the disease progresses could certainly be an etiology as well. At this point I recommended he undergo a colonoscopy in the very near future to try to make a definitive diagnosis and initiate treatment. Full consent was obtained from him for this, including risks of bleeding and perforation. The procedure will be done with monitored anesthesia care. He will also have the below labs tests for further evaluation of his significant symptoms. We will also be in touch with his [facility] and [facility] cardiologists to obtain some information and clearance for the procedure. Heath was comfortable with this plan. Thank you again for allowing me to participate in Heath's care. I shall continue to keep you advised of his progress. 03/01/2024 Helicobacter pylori [H. pylori] as the cause of diseases classified elsewhere (ICD-10 - B96.81) Overall, Heath appears well at the present time with significant improvement in his previous diarrhea and weight loss. I advised him that I do not have a definitive etiology for the previous issue given the negative workup, but at this point he is much better from a symptomatic standpoint the simple use of Lomotil. As such, I did advise him to continue that for the time being and we will continue to observe things. If things relapse we may want to get some other studies including either a MRI or CT scan with small bowel enterography and/or a small bowel video capsule study. We did review the upper endoscopy findings. At this point I have recommended holding off on treating the H. pylori as I do not want to induce diarrhea from the antibiotics as he is much better than he was previously in regard to the diarrhea. He also has his upcoming mitral valve surgery in early April and I don't want him to have any problems from a GI standpoint prior to that surgery. I did advise him that we can review the H. pylori when I see him next year and decide about treatment at that time. In the meantime I did advise him to continue his daily omeprazole and avoid aspirin, NSAIDs, tobacco, and alcohol. We also reviewed the need for a follow up colonoscopy in 2028 for further screening. We did discuss the issue with the celiac artery but at this time I advised him that seems to be an incidental finding and I would not pursue any type of surgical correction for that unless he becomes symptomatic with significant postprandial upper abdominal pain, anorexia, and weight loss. I've given Heath an appointment to see me again in the early Spring for followup but advised him to contact me prior to that if he has any problems that I can be of assistance with. Heath was comfortable with this plan. Thank you again for allowing me to participate in Heath's care. I shall continue to keep you advised of his progress. 07/24/2024 Anemia (ICD-10 - D64.9) 12/20/2023 Abnormal weight loss (ICD-10 - R63.4) 12/15/2023 Weight loss (ICD-10 - R63.4) 01/18/2024 Gastric ulcer (ICD-10 - K25.9) 03/01/2024 History of adenomatous polyp of colon (ICD-10 - Z86.010) Repeat screening colonoscopy in 2028 Overall, Heath appears well at the present time with significant improvement in his previous diarrhea and weight loss. I advised him that I do not have a definitive etiology for the previous issue given the negative workup, but at this point he is much better from a symptomatic standpoint the simple use of Lomotil. As such, I did advise him to continue that for the time being and we will continue to observe things. If things relapse we may want to get some other studies including either a MRI or CT scan with small bowel enterography and/or a small bowel video capsule study. We did review the upper endoscopy findings. At this point I have recommended holding off on treating the H. pylori as I do not want to induce diarrhea from the antibiotics as he is much better than he was previously in regard to the diarrhea. He also has his upcoming mitral valve surgery in early April and I don't want him to have any problems from a GI standpoint prior to that surgery. I did advise him that we can review the H. pylori when I see him next year and decide about treatment at that time. In the meantime I did advise him to continue his daily omeprazole and avoid aspirin, NSAIDs, tobacco, and alcohol. We also reviewed the need for a follow up colonoscopy in 2028 for further screening. We did discuss the issue with the celiac artery but at this time I advised him that seems to be an incidental finding and I would not pursue any type of surgical correction for that unless he becomes symptomatic with significant postprandial upper abdominal pain, anorexia, and weight loss. I've given Heath an appointment to see me again in the early Spring for followup but advised him to contact me prior to that if he has any problems that I can be of assistance with. Heath was comfortable with this plan. Thank you again for allowing me to participate in Heath's care. I shall continue to keep you advised of his progress. 07/24/2024 Peptic ulcer disease (ICD-10 - K27.9) 12/20/2023 Abnormal findings on diagnostic imaging of other parts of digestive tract (ICD-10 - R93.3) 12/15/2023 Diverticulosis of large intestine without perforation or abscess without bleeding (ICD-10 - K57.30) 01/18/2024 Hiatal hernia (ICD-10 - K44.9) 06/21/2024 Folate deficiency (ICD-10 - E53.8) 12/15/2023 Other hemorrhoids (ICD-10 - K64.8) 01/18/2024 Abn findings-GI tract (ICD-10 - R93.3) 01/18/2024 Weight loss (ICD-10 - R63.4) Plan Of Treatment Pending Test Test Name Order Date UPPER GI ENDOSCOPY 07/24/2024 COLONOSCOPY 07/24/2024 CHEM 7 PROFILE 06/21/2024 CHEM 7 PROFILE 12/20/2023 CHEM 7 PROFILE 11/30/2023 CHEM 7 PROFILE 07/24/2024 LIVER PROFILE 07/24/2024 LIVER PROFILE 06/21/2024 LIVER PROFILE 11/30/2023 IRON + IBC (FE) 11/30/2023 IRON + IBC (FE) 07/24/2024 CRP 11/30/2023 CRP 06/21/2024 CRP 07/24/2024 VITAMIN B12 AND FOLATE 11/30/2023 CBC w DIFF 06/21/2024 CBC w DIFF 07/24/2024 CBC w DIFF 11/30/2023 SED RATE (ESR) 07/24/2024 SED RATE (ESR) 11/30/2023 SED RATE (ESR) 06/21/2024 STOOL WBC 12/20/2023 CELIAC PANEL #10 11/30/2023 CT ABD & PELVIS WITH CONTRAST 12/20/2023 STOOL WBC 06/21/2024 C DIFFICILE RFLX PCR 12/20/2023 C DIFFICILE RFLX PCR 06/21/2024 Complete Blood Count Auto Diff Ferritin 07/24/2024 Vitamin B12 and Folate 07/24/2024 Folate 06/21/2024 Trypsin 12/20/2023 Giardia Ag Stool EIA 12/20/2023 Pancreatic Elastase-1 12/20/2023 Fecal Fat Qualitative 12/20/2023 Calprotectin, Fecal 12/20/2023 Calprotectin, Fecal 06/21/2024 Ova and Parasite 12/20/2023 GI PANEL 06/21/2024 GI PANEL 12/20/2023 Future Test Test Name Order Date COLONOSCOPY 11/30/2023 UPPER GI ENDOSCOPY 01/05/2024 Next Appt Details Provider Name:Waqas Diaz , 08/30/2024 09:00:00 AM, [address] [facility], [address], [place], [address], Insurance Providers Payer Name Payer Address Payer Phone Subscriber Number Group Number Insured Name Patient Relationship to Insured Coverage Start Date Coverage End Date [employer] [address] [place] [address] [phone] [id number] JOSE WINSLOW Self - patient is the insured Medical (General) History Medical History History ICD Code Mitral valve insufficiency-- scheduled for surgery for a mitral valve repair at [facility] on 04/24/2024--has initially been seeing Dr. oDherty but was then referred to [facility] for his surgery HTN Denies KS,DM,CVA,Lung disease,renal dise ase Chronic diarrhea-colonoscopy as below--negative [...] on 12/[address] scan at [facility]--- this appears to be an incidental finding as he is asymptomatic in that regard-reviewed with patient at the 03/01/24 OV Surgical History Surgery Date(Month/Year)
--- OUTSIDE RECORDS SUMMARY | 2024-07-31 06:27 | XMS_ITS ---
Author Organization [facility] Address [address] [place] [address] Care Team Providers Care Parking Meter Mechanic Name Role Phone Valentino HATCH, [facility] Primary Care Provider Waqas Cash [phone] REASON FOR VISIT Needs labs and stool specimens Problems Problem Type SNOMED Code ICD Code Onset Dates Problem Status W/U Status Risk Notes Problem Rectal bleeding (51299067) Rectal bleeding (K62.5) Active confirmed Encounters Encounter Location Date Provider Diagnosis [facility] [address] [place] [address] 06/21/2024 Waqas Diaz Diarrhea R19.7 ; Rectal bleeding K62.5 and Folate deficiency E53.8 Assessments Encounter Date Diagnosis (ICD Code) Assessment Notes Treatment Notes Treatment Clinical Notes Section Notes 06/21/2024 Diarrhea (ICD-10 - R19.7) 06/21/2024 Rectal bleeding (ICD-10 - K62.5) 06/21/2024 Folate deficiency (ICD-10 - E53.8) Plan Of Treatment Pending Test Test Name Order Date CHEM 7 PROFILE 06/21/2024 LIVER PROFILE 06/21/2024 CRP 06/21/2024 CBC w DIFF 06/21/2024 SED RATE (ESR) 06/21/2024 STOOL WBC 06/21/2024 C DIFFICILE RFLX PCR 06/21/2024 Folate 06/21/2024 Calprotectin, Fecal 06/21/2024 GI PANEL 06/21/2024 Next Appt Details Provider Name:Waqas Diaz , 08/30/2024 09:00:00 AM, [address], [address], [place], [address], Progress Notes * JOSE WINSLOW JDOB: [birth year] (49 yo M)Acc No.[id number]:06/21/2024 Patient:?JOSE WINSLOW J :1975???Age:49 Y???Sex:Male Address:[address] [place] [address] [place], [address] Subjective: * Chief Complaints: * ???Needs labs and stool spec imens * Medical History:? * Surgical History:? * Hospitalization/Major Diagno stic Procedure:? * Medications:? Objective: Assessment: * Assessment: 1.?Diarrhea - R19.7 (Primary )?2.?Rectal bleeding - K62.5?3.?Folate deficiency - E53.8? Plan: * Treatment: 2.?Rectal bleeding?LAB: CHEM 7 PROFILE ?LAB: LIVER PROFILE ?LAB: CRP ?LAB: CBC w DIFF ?LAB: SED RATE (ESR) ?LAB: STOOL WBC ?LAB: C DIFFICILE RFLX PCR ?LAB: Calprotectin, Fecal ?LAB: GI PANEL 3.?Folate deficiency?LAB: Folate * Procedure Codes:? * true * Date:? Generated for Blanca lou/Ariel/eTransmitting on:?07/31/2024 06:27 AM EDT
--- OUTSIDE RECORDS SUMMARY | 2024-07-31 06:27 | XMS_ITS ---
Author Organization [facility] Address [address] [place] [address] Care Team Providers Care Baggage And Mail Agent Name Role Phone Valentino HATCH, [place] Primary Care Provider Waqas Cash [phone] REASON FOR VISIT REQUESTING NOTE FOR SHORT TERM DISABILITY Encounters Encounter Location Date Provider Diagnosis [facility] [address] [place] [address] 07/04/2024 Waqas Diaz Plan Of Treatment Next Appt Details Provider Name:Waqas iDaz , 08/30/2024 09:00:00 AM, [address], [address], [place], [address], Progress Notes * JOSE WINSLOWDOB: [birth year] (49 yo M)Acc No.[id number]:07/04/2024 Patient:?JOSE WINSLOW :1975???Age:49 Y???Sex:Male Address:[place], [address] * true * Date:? Generated for Printi ng/Fadavidg/eTransmitting on:?07/31/2024 06:27 AM EDT
--- OUTSIDE RECORDS SUMMARY | 2024-07-31 06:27 | XMS_ITS ---
Author Organization [facility] Address [address] [place] [address] Care Team Providers Care Motorcycle Designer Name Role Phone Valentino HATCH, [facility] Primary Care Provider Waqas Cash [phone] REASON FOR VISIT Needs labs and procedures WENDY Problems Problem Type SNOMED Code ICD Code Onset Dates Problem Status W/U Status Risk Notes Problem Anemia (208417935) Anemia (D64.9) Active confirmed Problem Peptic ulcer disease (17810107) Peptic ulcer disease (K27.9) Active confirmed Procedures Procedure Date Ordered Date Performed Result Body Sit e UPPER GI ENDOSCOPY 07/24/2024 N/A COLONOSCOPY 07/24/2024 N/A Encounters Encounter Location Date Provider Diagnosis [facility] [address] [place] [address] 07/24/2024 Waqas Diaz Diarrhea R19.7 ; Rectal bleeding K62.5 ; Anemia D64.9 and Peptic ulcer disease K27.9 Assessments Encounter Date Diagnosis (ICD Code) Assessment Notes Treatment Notes Treatment Clinical Notes Section Notes 07/24/2024 Diarrhea (ICD-10 - R19.7) 07/24/2024 Rectal bleeding (ICD-10 - K62.5) 07/24/2024 Anemia (ICD-10 - D64.9) 07/24/2024 Peptic ulcer disease (ICD-10 - K27.9) Plan Of Treatment Pending Test Test Name Order Date UPPER GI ENDOSCOPY 07/24/2024 COLONOSCOPY 07/24/2024 CHEM 7 PROFILE 07/24/2024 LIVER PROFILE 07/24/2024 IRON + IBC (FE) 07/24/2024 CRP 07/24/2024 CBC w DIFF 07/24/2024 SED RATE (ESR) 07/24/2024 Ferritin 07/24/2024 Vitamin B12 and Folate 07/24/2024 Next Appt Details Provider Name:Waqas Diaz , 08/30/2024 09:00:00 AM, [address], [address], [place], [address], Progress Notes * JOSE WINSLOW JDOB: [birth year] (49 yo M)Acc No.[id number]:07/24/2024 Patient:?JOSE WINSLOW J :1975???Age:49 Y???Sex:Male Address:[address] [place] [address] [place], [address] Subjective: * Chief Complaints: * ???Needs labs and procedu res WENDY * Medical History:? * Surgical History:? * Hospitalization/Major Diagno stic Procedure:? * Medications:? Objective: * Vitals:? * Physical Examination:? Assessment: * Assessment: 1.?Diarrhea - R19.7 (Primary )???2.?Rectal bleeding - K62.5???3.?Anemia - D64.9???4.?Peptic ulcer disease - K27.9??? Plan: * Treatment: ?Procedure: COLONOSCOPY* with MAC 2.?Rectal bleeding?LAB: CHEM 7 PROFILE ?LAB: LIVER PROFILE ?LAB: IRON + IBC (FE) ?LAB: CRP ?LAB: CBC w DIFF ?LAB: SED RATE (ESR) ?LAB: Ferritin ?LAB: Vitamin B12 and Folate ?Procedure: UPPER GI ENDOSCOPY* with MAC ?Procedure: COLONOSCOPY* with MAC 3.?Anemia?LAB: CHEM 7 PROFILE ?LAB: LIVER PROFILE ?LAB: IRON + IBC (FE) ?LAB: CRP ?LAB: CBC w DIFF ?LAB: SED RATE (ESR) ?LAB: Ferritin ?LAB: Vitamin B12 and Folate ?Procedure: UPPER GI ENDOSCOPY* with MAC ?Procedure: COLONOSCOPY* with MAC 4.?Peptic ulcer disease?LAB: CHEM 7 PROFILE ?LAB: LIVER PROFILE ?LAB: IRON + IBC (FE) ?LAB: CRP ?LAB: CBC w DIFF ?LAB: SED RATE (ESR) ?LAB: Ferritin ?LAB: Vitamin B12 and Folate ?Procedure: UPPER GI ENDOSCOPY* with MAC * Procedure Codes:?[id number] DIAGN OSTIC [id number] UPPR GI ENDOSCOPY, DIAGNOSIS * * Date:?
--- NOTE | 2024-08-08 11:00 | P.CONAN_ITS ---
Documented by User: Meg Paulino NP 08/21/24 13:03 HPI - Anesthesia Eval Consult details Narrative: 49yo M for Upper Endoscopy and Colonoscopy s/p EGD 12/2023 with TIVA s/p Deer 11/2023 with TIVA Prior to 11/2023 colo Severe Mitral regurg follows by [facility]. Optimized to proceed with colonoscopy. Asymptomatic with high activity tolerance. Case reviewed with Dr Mckeon 06/2024 f/u with [facility] cardiac surgery = planned for mitral repair, but requests GI eval of MAL and rectal bleeding prior to surgery PMFSH Active Problems Active Problems: All Active Problems Celiac artery stenosis (Acute) Peptic ulcer (Acute) Rectal bleed (Acute) Colon cancer screening (Acute) Tick bite (Acute) Vitamin D deficiency (Acute) Atrial enlargement, left (Acute) Mitral regurgitation (Acute) Mitral valve prolapse determined by imaging (Acute) Cardiac murmur (Acute) Weight loss (Acute) Fatigue (Acute) Tired (Acute) Abnormal CBC measurement (Acute) Hypertension, essential (Acute) Tobacco abuse (Acute) Encounter for general adult medical examination with abnormal findings (Acute) History of COVID-19 (Acute) Knee pain, left (Acute) Osteoarthritis of hand, right (Acute) Prehypertension (Acute) COVID-19 (Acute) Pneumonia due to COVID-19 virus (Acute) Severe mitral regurgitation (Acute) Past Medical History Medical History (Updated 08/23/24 @ 13:37 by Fabby Kruse RN) Murmur Hx of peptic ulcer Iron deficiency anemia HTN (hypertension) Severe mitral regurgitation Family History Family History Father No problems noted. Mother No problems noted. Family history of problems with anesthesia: No Surgical History Surgical History (Updated 08/23/24 @ 13:17 by Fabby Kruse RN) History of esophagogastroduodenoscopy (EGD) H/O colonoscopy History of Problems with Anesthesia: No Social History Social History Housing: House Alcohol intake: current Alcohol intake frequency: a few times a month Patient Tobacco Use Status: Current everyday Tobacco user Tobacco use type: Cigarette Cigarettes Per Day: 3 e-Cigarette/Vaping Use: Never Used Use of substances other than those prescribed or required for medical reasons: No Are you DNR?: No Advance Directives: No Advance Directives Information Provided: Yes Current occupational status: employed Cognitive needs: No Hearing needs: No Vision needs: Yes Meds Allergies Allergy/AdvReac Type Severity Reaction Status Date / Time No Known Allergies Allergy Verified 08/23/24 13:18 Home Medications ?Medication ?Instructions ?Recorded ?Confirmed ?Last Taken ?Type cholecalciferol (vitamin D3) 25 50 mcg PO DAILY 09/07/23 08/23/24 Unknown History mcg (1,000 unit) capsule atenolol 25 mg tablet 25 mg PO DAILY 12/13/23 08/23/24 08/23/24 09:00 History cyanocobalamin (vitamin B-12) 500 500 mcg PO DAILY 12/13/23 08/23/24 Unknown History mcg lozenges (Vitamin B-12) diphenoxylate-atropine 2.5 2 tab PO Q4H PRN Diarrhea 08/17/24 08/23/24 Unknown History mg-0.025 mg tablet folic acid 1 mg tablet 1 mg PO DAILY 08/17/24 08/23/24 Unknown History omeprazole 40 mg capsule,delayed 40 mg PO DAILY 08/17/24 08/23/24 Unknown History release Exam Pertinent Lab Results Pertinent Lab Results: Laboratory Tests 07/13/24 16:15 WBC 5.5 Hgb 9.6 L D Hct 28.9 L D Plt Count 246 Sodium 139 Potassium 4.1 Chloride 105 Carbon Dioxide 28 BUN 11 Creatinine 1.29 Narrative Narrative: ECHO 08/2023 Conclusions: - 1. Normal LV systolic and diastolic function with LVEF of 60 65% 2. Mildly dilated left atrium 3. 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 Normal RV systolic pressure 5. No gross pericardial effusion EKG 08/2023 normal sinus rhythm with voltage criteria for LVH otherwise normal EKG Assessment and Plan Assessment Anesthesia Assessment: Chart Reviewed Final Anesthetic Review Family History of Problems with Anesthesia: No History of Problems with Anesthesia: No Documented by User: Kathie Henderson MD 08/23/24 14:16 [facility] Past Medical History Medical History (Updated 08/23/24 @ 13:37 by Fabby Kruse, RN) Murmur Hx of peptic ulcer Iron deficiency anemia HTN (hypertension) Severe mitral regurgitation Family History Family History Father No problems noted. Mother No problems noted. Surgical History Surgical History (Updated 08/23/24 @ 13:17 by Fabby Kruse, RN) History of esophagogastroduodenoscopy (EGD) H/O colonoscopy Social History Social History Housing: House Alcohol intake: current Alcohol intake frequency: a few times a month Patient Tobacco Use Status: Current everyday Tobacco user Tobacco use type: Cigarette Cigarettes Per Day: 3 e-Cigarette/Vaping Use: Never Used Use of substances other than those prescribed or required for medical reasons: No Are you DNR?: No Advance Directives: No Advance Directives Information Provided: Yes Current occupational status: employed Cognitive needs: No Hearing needs: No Vision needs: Yes Meds Allergies Allergy/AdvReac Type Severity Reaction Status Date / Time No Known Allergies Allergy Verified 08/23/24 13:18 Home Medications ?Medication ?Instructions ?Recorded ?Confirmed ?Last Taken ?Type cholecalciferol (vitamin D3) 25 50 mcg PO DAILY 09/07/23 08/23/24 Unknown History mcg (1,000 unit) capsule atenolol 25 mg tablet 25 mg PO DAILY 12/13/23 08/23/24 08/23/24 09:00 History cyanocobalamin (vitamin B-12) 500 500 mcg PO DAILY 12/13/23 08/23/24 Unknown History mcg lozenges (Vitamin B-12) diphenoxylate-atropine 2.5 2 tab PO Q4H PRN Diarrhea 08/17/24 08/23/24 Unknown History mg-0.025 mg tablet folic acid 1 mg tablet 1 mg PO DAILY 08/17/24 08/23/24 Unknown History omeprazole 40 mg capsule,delayed 40 mg PO DAILY 08/17/24 08/23/24 Unknown History release Exam Narrative Narrative: Justice 08/2023 Conclusions: - 1. Normal LV systolic and diastolic function with LVEF of 60 65% 2. Mildly dilated left atrium 3. 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 Normal RV systolic pressure 5. No gross pericardial effusion EKG 08/2023 normal sinus rhythm with voltage criteria for LVH otherwise normal EKG Airway Mallampati Class: II TM Dist: >3cm Neck ROM: Full Assessment and Plan Assessment Anesthesia Assessment: Anesthesia Plan Discussed Final Anesthetic Review NPO: Yes ASA Class: III Final Preanesthetic Review: No Changes in Pt Med Stat, Meds/Allgs Chart Reviewed, Consent Obtained/Reviewed and Anes Risks/Benef Reviewed Patient Risk: Intermediate Procedure Risk: Low Anesthetic Plan Anesthetic Plan: TIVA Disposition: Standard PACU
[2024-08-21 08:50] VITALS: BMI 22.7
[2024-08-23 13:19] VITALS: BMI 23.7
[2024-08-23 13:30] VITALS: BP 112/60; PULSE 46; RESP 15; TEMP 36.9; O2SAT 97
[2024-08-23] MEDS: Lactated Ringers 1,000 ML 100 ML IVCONT (13:44)
[2024-08-23 15:56] VITALS: BP 118/75; PULSE 54; RESP 14; TEMP 36.1; O2SAT 100
[2024-08-23 16:11] VITALS: BP 121/66; PULSE 47; RESP 14; O2SAT 100
--- NOTE | 2024-08-23 16:14 | P.BOP_ITS ---
Brief Operative Note Date of Service: 08/23/24 Pre-op diagnosis: Anemia, Rectal bleeding Post-op diagnosis: other (Healed ulcers, small hiatal hernia, Internal and External hemorrhoids) Procedure: EGD with biopsies, Colonoscopy to the cecum and TI with biopsies Surgeon: Waqas Diaz MD Anesthesia: MAC Was an Ethylene Oxide Panelboard Operator used for this Procedure?: No Estimated blood loss (mL): 2.0 Pathology: other (A. Gastric antrum B. EG Junction at 39cm C. Terminal ileum) Condition: stable Disposition: PACU
[2024-08-23 16:26] VITALS: BP 113/66; PULSE 47; RESP 18; TEMP 36.6; O2SAT 100
[2024-08-23 16:41] VITALS: BP 118/67; PULSE 55; RESP 18; TEMP 36.6; O2SAT 100
--- NOTE | 2024-08-23 23:04 | OP_ITS ---
DATE OF SERVICE: 08/23/2024 SURGEON: Waqas Diaz MD INDICATIONS: The patient presents for evaluation of previous peptic ulcer disease, iron deficiency anemia, diarrhea, and rectal bleeding. Full consent has been obtained from him for this, including risks of bleeding and perforation. PREOPERATIVE DIAGNOSIS: POSTOPERATIVE DIAGNOSIS: PROCEDURE PERFORMED: ESTIMATED BLOOD LOSS: COMPLICATIONS: ANESTHESIA: Medication used, monitored anesthesia care. ASSISTANTS: SPECIMENS: PREOPERATIVE DIAGNOSES: History of peptic ulcer disease, iron deficiency anemia, diarrhea, and rectal bleeding. POSTOPERATIVE DIAGNOSES: History of peptic ulcer disease, iron deficiency anemia, diarrhea, rectal bleeding, healed ulcers, rule out Helicobacter pylori, small hiatal hernia and reflux, internal and external hemorrhoids. PROCEDURES PERFORMED: Esophagogastroduodenoscopy with biopsies, and colonoscopy to the cecum and terminal ileum with biopsies. DESCRIPTION OF PROCEDURE: The patient was placed in the left lateral decubitus position. The Olympus video gastroscope was passed in the posterior oropharynx and upper esophagus under direct vision. The scope was passed slowly into the distal esophagus. The gastroesophageal junction appeared at 39 cm. There was no sign of any esophagitis. There was some slight irregularity consistent with reflux, but no definitive evidence of Bianchi's mucosa. The scope entered the stomach. There was a small hiatal hernia. The scope was advanced to the pylorus and the duodenum was cannulated to the descending portion. The duodenum including the bulb appeared normal without mass or ulceration. There was no sign of any residual duodenal ulcer disease. The scope was withdrawn back into the stomach. The gastric antrum and body appeared normal with good peristalsis. There was no sign of any residual gastric ulcers. There was good peristalsis. Biopsies were obtained from the antrum. The scope was retroflexed visualizing the proximal stomach carefully, which appeared normal, without any sign of mass or ulceration. The scope was straightened out and withdrawn back to the esophagus. Biopsies were obtained from the EG junction at 39 cm. Proximal to this, the esophageal mucosa appeared normal. The scope was withdrawn from the patient. He was turned around for the colonoscopy. The digital rectal exam revealed external hemorrhoids. The Olympus video pediatric colonoscope was entered into the rectum and advanced easily to the cecum. Once in the cecum, I did identify normal-appearing cecal pouch with appendiceal orifice and a normal-appearing ileocecal valve. I was able to cannulate the terminal ileum for at least 5 to 10 cm and the ileal mucosa appeared normal. Biopsies were obtained. The scope was withdrawn back into the colon. The ileocecal valve appeared normal. The scope was slowly withdrawn assessing all mucosal surfaces carefully. Preparation was excellent. I did not visualize any sign of colitis, polyps, nor angiodysplasia. There was an occasional diverticulum in the sigmoid colon. I did not obtain biopsies from the colon as they had been done last summer and were normal. Once in the rectum, scope was retroflexed visualizing some internal hemorrhoids, but no other pathology. The rectal mucosa appeared normal. The scope was straightened out and withdrawn from the patient. He tolerated the procedure well and was returned to recovery area in stable condition. IMPRESSION: 1. Small hiatal hernia and minimal gastroesophageal reflux. 2. Healed peptic ulcer disease, rule out Helicobacter pylori. 3. Occasional sigmoid diverticulosis. 4. Internal and external hemorrhoids. PLAN: The results of the biopsies will be checked. He has been advised to continue his omeprazole given his previous history of peptic ulcer disease and ongoing issues with anemia. 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 In regard to the anemia, he has been advised to continue his iron. He does report that recently his diarrhea and bleeding have both resolved. His most recent hemoglobin was 8.2 with MCV of 80 on August 17. His hemoglobin had been 9.6 back in June and was normal at 17 last November. His recent iron studies again showed iron deficiency with an iron of 12, iron saturation 3% and ferritin of 7. B12 level was normal. Previous folate levels have been normal as well when measured in June, but had been low last November at 3.6, and he was started on folic acid supplements. At this point, he will continue to use Lomotil or Imodium on a p.r.n. basis as well. He was advised to decrease that or stop it if he gets any type of constipation. Depending upon his clinical course, he may need further evaluation with a small bowel video capsule study given the intermittent episodes of diarrhea and significant anemia. The bleeding could very well be from hemorrhoids, but that typically would not cause significant anemia and would not cause diarrhea. He will be seen on August 30 for a followup scheduled office visit. This has been discussed with his . MD XAVIER Zuniga/JUAN / [id number] CHRISTINA
== END 2024-08-23 17:13 | disposition home or self-care (01) ==
PROVIDERS: PCP Internal Medicine; Visit Provider Internal Medicine
PROC: (CPT 45380; principal; 2024-08-23 14:30)
DX: D50.9 Iron deficiency anemia, unspecified (principal); K57.30 Diverticulosis of large intestine without perforation or abscess without bleeding; K64.8 Other hemorrhoids; K64.4 Residual hemorrhoidal skin tags; R19.7 Diarrhea, unspecified; K29.50 Unspecified chronic gastritis without bleeding; K44.9 Diaphragmatic hernia without obstruction or gangrene; I10 Essential (primary) hypertension; E55.9 Vitamin D deficiency, unspecified; F17.210 Nicotine dependence, cigarettes, uncomplicated; Z79.899 Other long term (current) drug therapy
CPT/HCPCS: 45380; 43239; 88305; 88313; 88342; J2371; J2704

== ENCOUNTER 2024-09-18 14:33 | Outpatient (REF) | payer BC, SELFPAY ==
[2024-09-18 14:44] LABS: MANUAL DIFF FLAG NO
[2024-09-18 14:50] LABS: Basophils Absolute Auto 0.1 X10*3/uL (0.0-0.2); Basophils Percent Auto 1.5 % (0-2); Eosinophils Absolute Auto 0.4 X10*3/uL (0.0-0.4); Eosinophils Percent Auto 5.4 % (0-4); Hematocrit 35.6 % (42.0-52.0); Hemoglobin 10.7 g/dl (14.0-18.0); Imm Gran Abs Auto 0.02 X10*3/uL (0.00-0.03); Imm Gran Pct Auto 0.3 % (0.0-0.4); Lymphocytes Absolute Auto 1.7 X10*3/uL (1.2-4.9); Lymphocytes Percent Auto 25.8 % (20-40); Mean Corpuscular HGB Conc 30.1 g/dl (31.0-36.0); Mean Corpuscular Hemoglobin 25.6 pg (27.0-33.0); Mean Corpuscular Volume 85.2 fL (80.0-98.0); Mean Platelet Volume 9.6 fL (9.4-12.4); Monocytes Absolute Auto 0.7 X10*3/uL (0.1-1.2); Monocytes Percent Auto 10.1 % (2-11); Neutrophils Absolute Auto 3.7 x10*3/uL (2.0-8.3); Neutrophils Percent Auto 56.9 % (45-73); Platelet Count 194 X10*3/uL (160-400); Red Blood Count 4.18 X10*6/uL (4.60-5.80); Red Cell Distribution Width 20.8 % (11.0-16.0); White Blood Count 6.5 X10*3/uL (4.8-10.8)
[2024-09-18 15:17] LABS: Iron 36 mcg/dL (45-160); Percent Iron Saturation 8 % (15-50); Total Iron Binding Capacity 424 mcg/dL (228-428); Unsaturated Iron Binding 388 ug/dL
[2024-09-18 15:31] LABS: Ferritin 28 ng/mL (20-250)
== END 2024-09-18 14:34 | disposition home or self-care (01) ==
LOC: HO.LAB 14:33
PROVIDERS: PCP Internal Medicine; Visit Provider Internal Medicine
DX: D50.0 Iron deficiency anemia secondary to blood loss (chronic) (principal)
CPT/HCPCS: 36415; 82728; 83540; 85025

== ENCOUNTER 2024-09-26 07:58 | Outpatient (AMB) | payer BC, SELFPAY ==
--- OUTSIDE RECORDS SUMMARY | 2024-09-26 08:01 | XMS_ITS ---
Author Organization [facility] Address [address] [place] [address] Care Team Providers Care Attendant Coin Operated Laundry Name Role Phone Valentino HATCH, [facility] Primary Care Provider Waqas Cash [phone] Allergies No Known Allergies REASON FOR VISIT Patient presents today for diarrhea,gastric ulcer Medications Medication SIG (Take, Route, Frequency, Duration) Notes Start Date End Date Status Lomotil 2.5-0.025 MG 1 or 2 Orally Every 4 to 6 hours as needed for diarrhea. You can take 1 or 2 first thing every morning and before meals to try to prevent the diarrhea in the first place. for 30 days 07/08/2024 Not-Taking Omeprazole 40 MG TAKE 1 CAPSULE BY MOUTH EVERY DAY for 90 Active Vitamin D 50 MCG (2000 UT) 1 tablet Orally Once a day Active Folic Acid 1 MG 1 tablet Orally Once a day 12/05/2023 Active Atenolol 25 MG 1 tablet Orally Once a day for 30 day(s) 11/30/2023 Active Omeprazole 20 MG 1 every morning Orally Once a day for 30 days Please tell him to start this Rx after he finishes the 10 days of the H.pylori treatment with the 10 day Rx's for the twice a day omeprazole, Amoxicillin, and Clarithromycin. Thanks very much 08/30/2024 Active Vitamin B 12 250 MCG 2 lozenges Orally Once a day for 30 day(s) Active Iron (Ferrous Sulfate) 325 (65 Fe) MG 1 tablet Orally twice a day Active Valsartan 40 MG TAKE 1 TABLET BY MOUTH EVERY DAY Oral for 30 Active Social History Tobacco Use: Social History Observation [...] drinks (0 point) Points 2 Interpretation Negative AUDIT-C (Standard) Question Answer Notes Did you have a drink contain ing alcohol in the past year? Yes How often did you have a dri nk containing alcohol in the past year? Never (0 point) How many drinks did you have on a typical day when you were drinking in the past year? 1 or 2 drinks (0 point) How often did you have six o r more drinks on one occasion in the past year? Never (0 point) Points 0 Interpretation Negative Section Notes: Smoker; no sig alcohol Problems Problem Type SNOMED Code ICD Code Onset Dates Problem Status W/U Status Risk Notes Problem Iron deficiency anemia due to chronic blood loss (068057574) 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) Active confirmed Problem Constipation (K59.00) Active confirmed Vital Signs Blood pressure systolic 111 mm Hg 08/31/19 25 Blood pressure diastolic 111 mm Hg 025 Height 71 in 08/30/2024 Weight 174 lbs 08/30/2024 BMI 24.27 kg/m2 08/30/2024 Encounters Encounter Location Date Provider Diagnosis [facility] [address] [place] [id number] 08/30/2024 Waqas Diaz Rectal bleed K62.5 ; Iron deficiency anemia due to chronic blood loss D50.0 ; Abnormal weight loss R63.4 ; Gastric ulcer K25.9 and Constipation K59.00 Assessments Encounter Date Diagnosis (ICD Code) Assessment Notes Treatment Notes Treatment Clinical Notes Section Notes 08/30/2024 Rectal bleed (ICD-10 - K62.5) Overall, Heath currently appears quite well. All of his symptoms have again resolved including the diarrhea, bleeding, and weight loss. I still do not have a definitive explanation for him as to the cause of this as there has been no signs of inflammatory bowel disease. He did have the previous ulcers found on last year's upper endoscopy which may certainly have contributed to his anemia. His hemorrhoids certainly would account for some rectal bleeding. Although I did advise him that would be unlikely to be causing significant anemia. At this point he is doing very well and appears very well. However, I did recommend a small bowel video capsule study to complete the workup of the symptoms of intermittent diarrhea, anemia and weight loss. We shall try to get that done as soon as possible so we can have the results before his heart surgery. In the meantime I did advise him to continue the omeprazole but we will give him a 2-week course of H. pylori therapy. Once he is done with that I will have him stay on the omeprazole 20 mg daily long-term for the time being given the previous ulcers and his upcoming surgery. I did advise him to use some stool softener such as Colace or MiraLAX to prevent straining and hemorrhoidal irritation with further bleeding. I did advise him continue the iron and we will repeat a CBC and iron studies for the end of this month. I will plan to see him in the Fall for a follow-up visit but did advise him to certainly call prior to that if things relapse again or if he has any questions in general. Heath was comfortable with this plan. Thank you again for allowing me to participate in Heath's care. I shall continue to keep you advised of his progress. 08/30/2024 Iron deficiency anemia due to chronic blood loss (ICD-10 - D50.0) Continue Iron twice a day. Needs a small bowel video capsule study for intermittent diarrhea, anemia, and weight loss Overall, Heath currently appears quite well. All of his symptoms have again resolved including the diarrhea, bleeding, and weight loss. I still do not have a definitive explanation for him as to the cause of this as there has been no signs of inflammatory bowel disease. He did have the previous ulcers found on last year's upper endoscopy which may certainly have contributed to his anemia. His hemorrhoids certainly would account for some rectal bleeding. Although I did advise him that would be unlikely to be causing significant anemia. At this point he is doing very well and appears very well. However, I did recommend a small bowel video capsule study to complete the workup of the symptoms of intermittent diarrhea, anemia and weight loss. We shall try to get that done as soon as possible so we can have the results before his heart surgery. In the meantime I did advise him to continue the omeprazole but we will give him a 2-week course of H. pylori therapy. Once he is done with that I will have him stay on the omeprazole 20 mg daily long-term for the time being given the previous ulcers and his upcoming surgery. I did advise him to use some stool softener such as Colace or MiraLAX to prevent straining and hemorrhoidal irritation with further bleeding. I did advise him continue the iron and we will repeat a CBC and iron studies for the end of this month. I will plan to see him in the Fall for a follow-up visit but did advise him to certainly call prior to that if things relapse again or if he has any questions in general. Heath was comfortable with this plan. Thank you again for allowing me to participate in Heath's care. I shall continue to keep you advised of his progress. 08/30/2024 Abnormal weight loss (ICD-10 - R63.4) Overall, Heath currently appears quite well. All of his symptoms have again resolved including the diarrhea, bleeding, and weight loss. I still do not have a definitive explanation for him as to the cause of this as there has been no signs of inflammatory bowel disease. He did have the previous ulcers found on last year's upper endoscopy which may certainly have contributed to his anemia. His hemorrhoids certainly would account for some rectal bleeding. Although I did advise him that would be unlikely to be causing significant anemia. At this point he is doing very well and appears very well. However, I did recommend a small bowel video capsule study to complete the workup of the symptoms of intermittent diarrhea, anemia and weight loss. We shall try to get that done as soon as possible so we can have the results before his heart surgery. In the meantime I did advise him to continue the omeprazole but we will give him a 2-week course of H. pylori therapy. Once he is done with that I will have him stay on the omeprazole 20 mg daily long-term for the time being given the previous ulcers and his upcoming surgery. I did advise him to use some stool softener such as Colace or MiraLAX to prevent straining and hemorrhoidal irritation with further bleeding. I did advise him continue the iron and we will repeat a CBC and iron studies for the end of this month. I will plan to see him in the Fall for a follow-up visit but did advise him to certainly call prior to that if things relapse again or if he has any questions in general. Heath was comfortable with this plan. Thank you again for allowing me to participate in Heath's care. I shall continue to keep you advised of his progress. 08/30/2024 Gastric ulcer (ICD-10 - K25.9) Continue the omeprazole 40mg. I will send over prescriptions to treat the H.pylori if the final report is positive. This will switch you to the 20mg omeprazole twice a day. After the two week treatmernt then stay on omeporazole 20mg assisted for now. Overall, Heath currently appears quite well. All of his symptoms have again resolved including the diarrhea, bleeding, and weight loss. I still do not have a definitive explanation for him as to the cause of this as there has been no signs of inflammatory bowel disease. He did have the previous ulcers found on last year's upper endoscopy which may certainly have contributed to his anemia. His hemorrhoids certainly would account for some rectal bleeding. Although I did advise him that would be unlikely to be causing significant anemia. At this point he is doing very well and appears very well. However, I did recommend a small bowel video capsule study to complete the workup of the symptoms of intermittent diarrhea, anemia and weight loss. We shall try to get that done as soon as possible so we can have the results before his heart surgery. In the meantime I did advise him to continue the omeprazole but we will give him a 2-week course of H. pylori therapy. Once he is done with that I will have him stay on the omeprazole 20 mg daily long-term for the time being given the previous ulcers and his upcoming surgery. I did advise him to use some stool softener such as Colace or MiraLAX to prevent straining and hemorrhoidal irritation with further bleeding. I did advise him continue the iron and we will repeat a CBC and iron studies for the end of this month. I will plan to see him in the Fall for a follow-up visit but did advise him to certainly call prior to that if things relapse again or if he has any questions in general. Heath was comfortable with this plan. Thank you again for allowing me to participate in Heath's care. I shall continue to keep you advised of his progress. 08/30/2024 Constipation (ICD-10 - K59.00) Use Colace twice a day or Miralax daily for the constipation Overall, Heath currently appears quite well. All of his symptoms have again resolved including the diarrhea, bleeding, and weight loss. I still do not have a definitive explanation for him as to the cause of this as there has been no signs of inflammatory bowel disease. He did have the previous ulcers found on last year's upper endoscopy which may certainly have contributed to his anemia. His hemorrhoids certainly would account for some rectal bleeding. Although I did advise him that would be unlikely to be causing significant anemia. At this point he is doing very well and appears very well. However, I did recommend a small bowel video capsule study to complete the workup of the symptoms of intermittent diarrhea, anemia and weight loss. We shall try to get that done as soon as possible so we can have the results before his heart surgery. In the meantime I did advise him to continue the omeprazole but we will give him a 2-week course of H. pylori therapy. Once he is done with that I will have him stay on the omeprazole 20 mg daily long-term for the time being given the previous ulcers and his upcoming surgery. I did advise him to use some stool softener such as Colace or MiraLAX to prevent straining and hemorrhoidal irritation with further bleeding. I did advise him continue the iron and we will repeat a CBC and iron studies for the end of this month. I will plan to see him in the Fall for a follow-up visit but did advise him to certainly call prior to that if things relapse again or if he has any questions in general. Heath was comfortable with this plan. Thank you again for allowing me to participate in Heath's care. I shall continue to keep you advised of his progress. Plan Of Treatment Medication Medication Name Sig Start Date Stop Date Notes Omeprazole 20 MG 1 every morning Oral ly Once a day for 30 days 08/30/2024 Please tell him t o start this Rx after he finishes the 10 days of the H.pylori treatment with the 10 day Rx's for the twice a day omeprazole, Amoxicillin, and Clarithromycin. Thanks very much Treatment Notes Assessment Notes Iron deficiency anemia due t o chronic blood loss Continue Iron twice a day. Needs a small bowel video capsule study for intermittent diarrhea, anemia, and weight loss Gastric ulcer Continue the omepraz ole 40mg. I will send over prescriptions to treat the H.pylori if the final report is positive. This will switch you to the 20mg omeprazole twice a day. After the two week treatmernt then stay on omeporazole 20mg moth exterminator for now. Constipation Use Colace twice a d ay or Miralax daily for the constipation Pending Test Test Name Order Date IRON + IBC (FE) 08/30/2024 CBC w DIFF 08/30/2024 Ferritin 08/30/2024 Next Appt Details Follow Up: 2024, Reaso n: Progress Notes * JOSE WINSLOW JDOB: [birth year] (49 yo M)Acc No.[id number]:08/30/2024 Progress Notes Patient:?JOSE WINSLOW Provider:?Waqas Diaz MD :1975???Age:49 Y???Sex:Male Malachi e:08/30/2024 Address:[address] [place], [place] [id number] Pcp:Faye Avelar MD Subjective: * Chief Complaints: * ???Patient presents today fo r diarrhea,gastric ulcer * HPI: ???incontinence:? I saw Heath in follow-up today in regard to his history of intermittent diarrhea, rectal bleeding, peptic ulcer disease, iron deficiency anemia, and weight loss. I last saw Heath just 1 week ago when he underwent a repeat colonoscopy and upper endoscopy due to a recurrence of his symptoms earlier this year. The upper endoscopy last week revealed complete healing of his previous ulcers and no significant inflammatory changes. Biopsies from the stomach still show some rare H. pylori. He has not yet been treated for that. There were some changes of reflux but no esophagitis or Bianchi's esophagus. His colonoscopy was completely normal including the terminal ileum. Biopsies from the ileum were normal. I did not biopsy the colon again as it had been normal last year. He does have internal and external hemorrhoids. Since the procedures he has continued to feel well. He now reports normal bowel movements. There has been no further bleeding. In fact he is a little bit constipated on the iron. He does continue on the 40 mg omeprazole daily and denies any heartburn, dysphagia, anorexia, nor early satiety. His weight has gone up to 174 pounds which is just about 5 or 10 pounds below his baseline. He had been as low as about 150 pounds last year. His most recent hemoglobin on August 10 showed improvement up to 8.2 but had dropped as low as 7.5 on August 10. He did not require transfusions. He is still on the iron twice a day. He is scheduled for his mitral valve surgery on October 02 in [place]. * ROS:?General/Constitutional:?Change in appetite?denies.?Chills?denies.?Fatigue?admits.?Ophthalmologic:?Comments?all negative.?ENT:?Comments?all negative.?Respiratory:?hemoptysis?denies.?Cough?denies.?Cardiovascular:?Chest pain?denies.?Orthopnea?denies.?Gastrointestinal:?Comments?See HPI for details.?Genitourinary:?Hematuria?denies.?Dysuria?denies.?Musculoskeletal:?Painful joints?denies.?Weakness?denies.?Skin:?Itching?denies.?Rash?denies.?Neurologic:?Headache?denies.?Seizures?denies.?Psychiatric:?Comments?all negative.? * Medical History:? * Surgical History:?No Surgica l History documented. * Hospitalization/Major Diagno stic Procedure:?No Hospitalization History. * Family History:?Father: steve smith, diagnosed with Diabetes, HTN (hypertension).?Mother: alive.? No family history of colon cancer, IBD, or celiac disease. * Social History:?Tobacco Use:?Tobacco Use/Smoking?Patient is a?current smoker.?Drugs/Alcohol:?Alcohol Screen?Did you have a drink containing alcohol in the past year??Yes,?How often did you have a drink containing alcohol in the past year??2 to 4 times a month (2 points),?How many drinks did you have on a typical day when you were drinking in the past year??1 or 2 drinks (0 point),?Points?2,?Interpretation?Negative.?Miscellaneous:?Marital status: . 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 ???Drug/Alcohol:?AUDIT-C (Standard)?Did you have a drink containing alcohol in the past year??Yes,?How often did you have a drink containing alcohol in the past year??Never (0 point),?How many drinks did you have on a typical day when you were drinking in the past year??1 or 2 drinks (0 point),?How often did you have six or more drinks on one occasion in the past year??Never (0 point),?Points?0,?Interpretation?Negative.?Smoker; no sig alcohol. * Medications:?TakingIron (Jc peggy Sulfate) 325 (65 Fe) MG Tablet 1 tablet Orally twice a day Vitamin B 12 250 MCG Lozenge 2 lozenges Orally Once a day Valsartan 40 MG Tablet TAKE 1 TABLET BY MOUTH EVERY DAY Oral Atenolol 25 MG Tablet 1 tablet Orally Once a day Folic Acid 1 MG Tablet 1 tablet Orally Once a day Vitamin D 50 MCG (2000 UT) Tablet 1 tablet Orally Once a day Omeprazole 40 MG Capsule Delayed Release TAKE 1 CAPSULE BY MOUTH EVERY DAY Taking Iron (Ferrous Sulfate) 325 (65 Fe) MG Tablet 1 tablet Orally twice a day Taking Vitamin B 12 250 MCG Lozenge 2 lozenges Orally Once a day Taking Valsartan 40 MG Tablet TAKE 1 TABLET BY MOUTH EVERY DAY Oral Taking Atenolol 25 MG Tablet 1 tablet Orally Once a day Taking Folic Acid 1 MG Tablet 1 tablet Orally Once a day Taking Vitamin D 50 MCG (2000 UT) Tablet 1 tablet Orally Once a day Taking Omeprazole 40 MG Capsule Delayed Release TAKE 1 CAPSULE BY MOUTH EVERY DAY Not-Taking/PRNLomotil 2.5-0.025 MG Tablet 1 or 2 Orally Every 4 to 6 hours as needed for diarrhea. You can take 1 or 2 first thing every morning and before meals to try to prevent the diarrhea in the first place. Medication List reviewed and reconciled with the patientNot-Taking/PRN Lomotil 2.5-0.025 MG Tablet 1 or 2 Orally Every 4 to 6 hours as needed for diarrhea. You can take 1 or 2 first thing every morning and before meals to try to prevent the diarrhea in the first place. Medication List reviewed and reconciled with the patient * Allergies:?N.K.D.A.yes[Aller gies Verified] Objective: * Vitals:?Wt:174lbs, Ht: 71 in , BMI:24.27Index, BP:111/111mm Hg, Ht-cm: 180.34, Wt-k.93. * Examination: ???General Examination: ?GENERAL APPEARANCE:?pleasant,?alert well-appearing male.?EYES:?sclera non-icteric.?ORAL CAVITY:?mucosa moist.?NECK/THYROID:?no cervical lymphadenopathy, neck supple.?SKIN:?nonjaundiced, no spider angiomata.?HEART:?S1, S2 normal.?LUNGS:?clear to auscultation bilaterally.?ABDOMEN:?normal bowel sounds, no guarding or rigidity, no guarding or rigidity, no masses palpable, soft, nontender, nondistended.?EXTREMITIES:?no edema.?NEUROLOGIC:?alert and oriented.? Assessment: * Assessment: 1.?Iron deficiency anemia du e to chronic blood loss - D50.0 (Primary)???2.?Rectal bleed - K62.5???3.?Abnormal weight loss - R63.4???4.?Gastric ulcer - K25.9???5.?Constipation - K59.00??? Overall, Heath currently appea rs quite well. All of his symptoms have again resolved including the diarrhea, bleeding, and weight loss. I still do not have a definitive explanation for him as to the cause of this as there has been no signs of inflammatory bowel disease. He did have the previous ulcers found on last year's upper endoscopy which may certainly have contributed to his anemia. His hemorrhoids certainly would account for some rectal bleeding. Although I did advise him that would be unlikely to be causing significant anemia. At this point he is doing very well and appears very well. However, I did recommend a small bowel video capsule study to complete the workup of the symptoms of intermittent diarrhea, anemia and weight loss. We shall try to get that done as soon as possible so we can have the results before his heart surgery. In the meantime I did advise him to continue the omeprazole but we will give him a 2-week course of H. pylori therapy. Once he is done with that I will have him stay on the omeprazole 20 mg daily long-term for the time being given the previous ulcers and his upcoming surgery. I did advise him to use some stool softener such as Colace or MiraLAX to prevent straining and hemorrhoidal irritation with further bleeding. I did advise him continue the iron and we will repeat a CBC and iron studies for the end of this month. I will plan to see him in the Fall for a follow-up visit but did advise him to certainly call prior to that if things relapse again or if he has any questions in general. Heath was comfortable with this plan. Thank you again for allowing me to participate in Heath's care. I shall continue to keep you advised of his progress. Plan: * Treatment: 2.?Gastric ulcer? Start Omeprazole Capsule Delayed Release, 20 MG, 1 every morning, Orally, Once a day, 30 days, 30, Refills 11, Notes to Pharmacist: Please tell him to start this Rx after he finishes the 10 days of the H.pylori treatment with the 10 day Rx's for the twice a day omeprazole, Amoxicillin, and Clarithromycin. Thanks very much.?? Notes: Continue the omeprazole 40mg. I will send over prescriptions to treat the H.pylori if the final report is positive. This will switch you to the 20mg omeprazole twice a day. After the two week treatmernt then stay on omeporazole 20mg assisted for now.?? 3.?Constipation? Notes: Use Colace twice a day or Miralax daily for the constipation?? * Procedure Codes:?3017F COLOR ECTAL CA SCREEN DOC [id number] Pt scrn tbco and id as [id number] BP SCR NOT PRFRM REC REASON NOS * Follow Up:?2024 * * Sign off status: Completed true * Provider:?aWqas Diaz MD Date:? 025 Generated for Printi ng/Faxing/eTransmitting on:?09/26/2024 08:01 AM EDT History and Physical Notes * Examination Category Sub-Category Detail Notes Category Not es General Examination GENERAL APPEARANCE: pleasant , alert well-appearing male HEAD: EYES: sclera non-icteric EARS: NOSE: THROAT: [...]
--- OUTSIDE RECORDS SUMMARY | 2024-09-26 08:01 | XMS_ITS ---
Author Organization [facility] Address [address] [place] [phone] Care Team Providers Care Software Build Engineer Name Role Phone Valentino HATCH, Asma Primary Care Provider Waqas Cash [phone] REASON FOR VISIT Need 5/6 capsule report WENDY Encounters Encounter Location Date Provider Diagnosis [facility] [address] [place] [phone] 09/02/2024 Waqas Diaz Plan Of Treatment No Information Progress Notes * JOSE WINSLOWDOB: [birth year] (49 yo M)Acc No.[id number]:09/02/2024 Patient:?JOSE WINSLOW :1975???Age:49 Y???Sex:Male Address[place], [address] * * Date:?
--- OUTSIDE RECORDS SUMMARY | 2024-09-26 08:01 | XMS_ITS ---
Author Organization [facility] Address [address] [place] [id number] Care Team Providers Care Hspt Tutor Name Role Phone Valentino HATCH, [facility] Waqas Cash [phone] REASON FOR VISIT waiting on pt call back Medications Medication SIG (Take, Route, Fr equency, Duration) Notes Start Date End Date Status Amoxicillin 500 MG 2 Orally Twice a day for 10 days 08/30/2024 Active Clarithromycin 500 MG 1 tablet Orally Tw ice a day for 10 days 08/30/2024 Active Omeprazole 20 MG 1 Orally Twice a day for 10 days 08/30/2024 Active Encounters Encounter Location Date Provider Diagnosis [facility] [address] [place] [phone] 08/30/2024 Waqas Diaz Plan Of Treatment Medication Medication Name Sig Start Date Stop Date Notes Amoxicillin 500 MG 2 Orally Twice a day for 10 days 2024 Clarithromycin 500 MG 1 tablet Orally Tw ice a day for 10 days 08/30/2024 Omeprazole 20 MG 1 Orally Twice a day for 10 days 08/31/19 Progress Notes * JOSE WINSLOWDOB: [birth year] (49 yo M)Acc No.[id number]:08/30/2024 Patient:?JOSE WINSLOW :1975???Age:49 Y???Sex:Male Address:[place], [address] * Refills? Start Amoxicillin Capsule, 500 MG, Orally, 40, 2, Twice a day, 10 days, Refills=0 Start Clarithromycin Tablet, 500 MG, Orally, 20 Tablet, 1 tablet, Twice a day, 10 days, Refills=0 Start Omeprazole Capsule Delayed Release, 20 MG, Orally, 20, 1, Twice a day, 10 days, Refills=0 * true * Date:? Generated for Blanca lou/Ariel/Mally on:?09/26/2024 08:01 AM EDT
--- OUTSIDE RECORDS SUMMARY | 2024-09-26 08:02 | XMS_ITS | Patient Health Record ---
Author Organization [facility] Address [address] [place] [address] Care Team Providers Care Fly Raiser Lockstitch Name Role Phone Valentino HATCH, Asma Primary Care Provider Waqas Cash [phone] Allergies No Known Allergies Results Component Value Reference Range Notes Ferritin Reviewed date:11/30/2023 10:36:54 PM Interpretation: Performing Lab:[facility], [address] [place] [phone] Notes/Report: Ferritin 92 20-250 ng/mL Complete Blood Count Auto Di ff Reviewed date:11/30/2023 10:33:50 PM Interpretation: Performing Lab:[facility], [address] [place] [phone] Notes/Report: White Blood Count 6.6 4.8-10.8 X10*3/uL [...] te Reviewed date:11/30/2023 10:33:58 PM Interpretation: Performing Lab:[address] [address] Notes/Report: Erythrocyte Sedimentation Rate 3 0-15 MM/HR Patients with polycythemia and many hemoglobin abnormalities may have depressed sed rates whereas patients with anemia may have elevated sed rates. Liver Panel Reviewed date:11/30/2023 10:34:46 PM Interpretation: Performing Lab:[address] [address] Notes/Report: Bilirubin Total 0.8 0.0-1.0 mg/dL Bilirubin Direct 0.3 0.0-0.5 mg/dL Aspartate Amino Transferase 26 5-37 U/L Alanine Aminotransferase 26 0-40 U/L Total Protein 7.1 6.5-8.0 g/dL Albumin Level 4.3 3.5-5.0 g/dL Alkaline Phosphatase 119 39-117 U/L Basic Metabolic Panel Reviewed date:11/30/2023 10:36:01 PM Interpretation: Performing Lab:[address] [address] Notes/Report: Sodium 140 135-145 mmol/L Potassium 4.2 3.3-5.1 mmol/L Chloride 104 96-108 mmol/L Carbon Dioxide 28 22-29 mmol/L Anion Gap 12 12-20 Blood Urea Nitrogen 14 9-16 mg/dL Creatinine 1.06 0.5-1.4 mg/dL Estimated Glomerular Filt Rate > 60 NOTE: For -Belizean individuals, multiply the result by 1.210. Chronic Kidney Disease: Estimated GFR < 60 mL/min/1.73m2 Severe Kidney Disease: Estimated GFR < 15 mL/min/1.73m2 Glucose Random 76 60-115 mg/dL Calcium 9.4 8.4-10.2 mg/dL IRON PROFILE Reviewed date:11/30/2023 10:36:11 PM Interpretation: Performing Lab:[facility], [address] [place] [phone] Notes/Report: Iron 173 45-160 mcg/dL Total Iron Binding Capacity 337 228-428 mcg/dL Percent Iron Saturation 51 15-50 % Unsaturated Iron Binding 164 C Reactive Protein Reviewed date:11/30/2023 10:36:20 PM Interpretation: Performing Lab:[facility], [address] [place] [phone] Notes/Report: C Reactive Protein 0.11 < or = 0.50 mg/dL Vitamin B12 and Folate Reviewed date:12/06/2023 07:35:23 PM Interpretation: Performing Lab:[facility], [address] [place] [phone] Notes/Report: Vitamin B12 431 200-900 pg/mL NORMAL 200-900 PG/ML INDETERMINATE 160-199 PG/ML DEFICIENT < 160 PG/ML Folate 3.6 > or = 4.0 ng/mL Reference Values: > or = 4.0 ng/mL < 4.0 ng/mL suggests folate deficiency Methotrexate, aminopterin and folinic acid (leucovorin) are chemotherapeutic agents whose molecular structures are similar to folate; therefore, the Sand Polisher folate assay cannot be used for patients using these drugs. Immunoglobulin A Reviewed date:12/16/2023 07:07:04 PM Interpretation: Performing Lab:[address] [address] Notes/Report: Immunoglobulin A 293 47-310 mg/dL THIS TEST WAS PERFORMED AT: [employer] [address] [place] [phone] KERRY GRAHAM MD Transglutaminase Ab IgG Reviewed date:12/16/2023 07:07:18 PM Interpretation: Performing Lab:[facility], [address] [place] [phone] Notes/Report: Transglutaminase Ab IgG <1.0 Value Interpretation ----- <15.0 Antibody not detected > or = 15.0 Antibody detected THIS TEST WAS PERFORMED AT: [employer] [address] [place] [phone] KERRY GRAHAM MD Transglutaminase IgA Reviewed date:12/16/2023 07:07:30 PM Interpretation: Performing Lab:[facility], [address] [place] [phone] Notes/Report: Transglutaminase IgA <1.0 Value Interpretation ----- <15.0 Antibody not detected > or = 15.0 Antibody detected THIS TEST WAS PERFORMED AT: [facility] [address] [place] [phone] KERRY GRAHAM MD Gliadin Ab Panel Reviewed date:12/16/2023 07:07:47 PM Interpretation: Performing Lab:[facility], [address] [place] [phone] Notes/Report: Gliadin Deamidated IgA Ab <1.0 Value Interpretation ----- <15.0 Antibody not detected > or = 15.0 Antibody detected Gliadin Deamidated IgG Ab <1.0 Value Interpretation ----- <15.0 Antibody not detected > or = 15.0 Antibody detected THIS TEST WAS PERFORMED AT: [employer] [address] [place] [phone] KERRY GRAHAM MD Endomysial IgA rflx Titer Reviewed date:12/16/2023 07:08:03 PM Interpretation: Performing Lab:[facility], [address] [place] [phone] Notes/Report: Endomysial IgA Antibody Negative Negative THIS TEST WAS PERFORMED AT: [employer] [place] [address] HAILEE ARTHUR MD,PHD Endomysial Titer TNP Pathology Reviewed date:12/21/2023 07:58:01 AM Interpretation: Performing Lab:[facility], [address] [facility], [place] [address] Notes/Report: --- Name: Jose Winslow Age/Sex: 48/M : 1975 Unit#: [id number] Attend Dr: Waqas Diaz MD Re12/15/23 Status : [facility] Location: [facility] Disch: --- SPEC : [id number] RECD : 12/16/23 STATUS: KATELYN FLORES NUM: [id number] MAYELA: 12/15/23-[address] [facility] [address]: Waqas Diaz MD ENTERED: 12/16/23-08 [...] Jose Winslow Age/Sex: 48/M : 1975 Unit#: [id number] Attend Dr: Waqas Diaz MD Re12/15/23 Status : [facility] Location: [facility] Disch: --- SPEC : [id number] RECD : 12/16/23 STATUS: KATELYN FLORES NUM: [id number] MAYELA: 12/15/23-[address] [facility] [address]: Waqas Diaz MD ENTERED: 12/16/23-08 [...] microscopic examination, 2 pieces in cassette [facility] Copies To: Faye Avelar MD [facility] [place] [address] [place], [place] [id number] Waqas Diaz MD [facility] [address] [place] [address] [address] [place], [place] [id number] --- Signed (signature on file) Dakota Alberto MD 12/20/23 0933 --- END OF REPORT CT abdomen pelvis w con Reviewed date:01/12/2024 09:38:56 AM Interpretation: Performing Lab: Notes/Report: [address] [address] [address] Scan Report Signed Patient: Jose Winslow MR#: [id number] : 1975 Acct:[id number] Age/Sex: 48 / M ADM Date: 01/03/24 Loc: HO.CT Attending Dr: Waqas Diaz MD Ordering Physician: Waqas Diaz MD Date of Service: 01/03/24 Procedure(s): CT abdomen pelvis w IV con Accession Number(s): [id number] cc: Waqas Diaz MD EXAMINATION: CT ABDOMEN [...] iterative reconstruction technique DLP: 294 mGy-cm FINDINGS: EQUIPMENT MAINTENANCE TECH: Nonobstructive bowel pattern. L4-L5 and L5-S1 disc [...] in OV> 01/03/24 1630 DD/ 1400 TD/TT: Mechanical Energy Engineer: [address] [address] [address] Scan Report Signed Patient: Heath Winslow MR#: [id number] : 1975 Acct:[id number] Age/Sex: 48 / M ADM Date: 01/03/24 Loc: HO.CT Attending Dr: Waqas Diaz MD Ordering Physician: Waqas Diaz MD Date of Service: 01/03/24 Procedure(s): CT abdomen pelvis w IV con Accession Number(s): [id number] cc: Waqas Diaz MD EXAMINATION: CT ABDOMEN [...] iterative reconstruction technique DLP: 294 mGy-cm FINDINGS: EQUIPMENT MAINTENANCE TECH: Nonobstructiv e bowel pattern. L4-L5 and L5-S1 [...] in OV> 01/03/24 1630 DD/ 1400 TD/TT: Mechanical Energy Engineer: Basic Metabolic Panel Reviewed date:01/12/2024 09:38:06 AM Interpretation: Performing Lab:[address] [address] Notes/Report: Sodium 141 135-145 mmol/L Potassium 3.9 3.3-5.1 mmol/L Chloride 103 96-108 mmol/L Carbon Dioxide 33 22-29 mmol/L Anion Gap 9 12-20 Blood Urea Nitrogen 13 9-16 mg/dL Creatinine 1.28 0.5-1.4 mg/dL Estimated Glomerular Filt Rate 60 NOTE: For -Belizean individuals, multiply the result by 1.210. Chronic Kidney Disease: Estimated GFR < 60 mL/min/1.73m2 Severe Kidney Disease: Estimated GFR < 15 mL/min/1.73m2 Glucose Random 99 60-115 mg/dL Calcium 9.3 8.4-10.2 mg/dL Gastrin Reviewed date:01/24/2024 05:08:10 PM Interpretation: Performing Lab:[address] [address] Notes/Report: Gastrin 30 <=100 pg/mL Reference range applies to fasting specimens only. For additional information, please refer to https://education.[employer]/faq/FAQ 202 (This link is being provided for informational/ educational purposes only.) THIS TEST WAS PERFORMED AT: [employer]/[address] HAILEE ARTHUR MD,PHD Pathology Reviewed date:01/29/2024 05:59:50 PM Interpretation: Performing Lab:[facility], [address] [place] [phone] Notes/Report: --- Name: Jose Winslow Age/Sex: 48/M : 1975 Unit#: [id number] Attend Dr: Waqas Diaz MD Re01/18/24 Status : [facility] Location: [facility] Disch: --- SPEC : [id number] RECD : 01/18/24-1350 STATUS: KATELYN FLORES NUM: [id number] MAYELA: 01/18/24-[address] [facility] [address]: Waqas Diaz MD ENTERED: 01/18/24-14 [...] Jose Winslow Age/Sex: 48/M : 1975 Unit#: [id number] Attend Dr: Waqas Diaz MD Re01/18/24 Status : [facility] Location: [facility] Disch: --- SPEC : [id number] RECD : 01/18/24 STATUS: KATELYN FLORES NUM: [id number] MAYELA: 01/18/24-[address] [facility] [address]: Waqas Diaz MD ENTERED: 01/18/24-14 [...] microscopic examination, 3 pieces in cassette [facility] Special studies orde red and performed: Immunostain for H. pylori on C; AB/PAS stains on A, B, C and D Copies To: Faye Avelar MD [facility] [place] [address] [place], [place] [id number] Waqas Diaz MD [facility] [address] [place] [address] --- Signed (signature on file) Dakota Alberto MD 01/20/24 1454 --- END OF REPORT Leukocytes Stool Qualitative Reviewed date:01/27/2024 06:23:49 PM Interpretation: Performing Lab:[facility], [address] [place] [phone] Notes/Report: Leukocytes Stool Qualitative NEGATIVE NEGATIVE Cancelled Serology Reviewed date:01/27/2024 06:22:58 PM Interpretation: Performing Lab:[facility], [address] [place] [phone] Notes/Report: Cancelled Serology SEE NOTE THE FOLLOWING TESTS WERE CANCELLED: CDIFF REASON: STOOL IS FORMED, TEST NOT INDICATED Giardia Ag Stool EIA Reviewed date:02/05/2024 05:19:04 PM Interpretation: Performing Lab:[facility], [address] [place] [phone] Notes/Report: Giardia Ag Stool EIA SEE NOTE GIARDIA AG, EIA, STOOL Micro Number: [id number] Test Status: Final Specimen Source: Stool Specimen Quality: Adequate Giardia Result 1: Not Detected Reference Range: Not Detected NOTE: Due to intermittent shedding, one negative sample does not necessarily rule out the presence of a parasitic infection. THIS TEST WAS PERFORMED AT: [facility] [address] [place] [phone] KERRY GRAHAM MD Pancreatic Elastase-1 Reviewed date:02/10/2024 04:51:58 PM Interpretation: Performing Lab:[address] [address] Notes/Report: Pancreatic Elastase-1 >500 Adult and Pediatric Reference Ranges for Pancreatic Elastase-1: Normal: >200 mcg/g Moderate Pancreatic Insufficiency: 100-200 mcg/g Severe Pancreatic Insufficiency: <100 mcg/g Elastase-1 (E-1) assay results are expressed in mcg/g, which represent mcg E1/g feces. It is not necessary to interrupt enzyme substitution therapy. THIS TEST WAS PERFORMED AT: [facility] [id number] [place] [phone] BENNIE BEDOLLA MD,PHD,XIOMARA Fecal Fat Qualitative Reviewed date:02/10/2024 04:52:07 PM Interpretation: Performing Lab:[facility], [address] [place] [phone] Notes/Report: Fecal Fat Qualitative Normal Normal THIS TEST WAS PERFORMED AT: [employer] [address] [place], [place] HAILEE ARTHUR MD,PHD Chymotrypsin, Stool Reviewed date:02/10/2024 04:52:23 PM Interpretation: Performing Lab:[address] [address] Notes/Report: Chymotrypsin, Stool 18.0 2.3-51.4 U/g This test was developed and its analytical performance characteristics have been determined by [employer]. It has not been cleared or approved by FDA. This assay has been validated pursuant to the CLIA regulations and is used for clinical purposes. THIS TEST WAS PERFORMED AT: [facility] [id number] [place] [phone] BENNIE BEDOLLA MD,PHD,XIOMARA Calprotectin, Fecal Reviewed date:02/10/2024 04:52:39 PM Interpretation: Performing Lab:[address] [address] Notes/Report: Calprotectin, Fecal 276 Reference Range: <50 [...] borderline values. THIS TEST WAS PERFORMED AT: [facility] [id number] [place] [phone] BENNIE BEDOLLA MD,PHD,XIOMARA Ova and Parasite Reviewed date:02/06/2024 11:13:36 PM Interpretation: Performing Lab:[facility], [address] [place] [phone] Notes/Report: Ova and Parasite SEE NOTE OVA AND PARASITES, CONC AND PERM SMEAR Micro Number: [id number] Test Status: Final Specimen Source: Stool Specimen Quality: Adequate CONCENTRATION 1: No ova or parasites seen TRICHROME 1: No ova or parasites seen Routine Ova and Parasite exam may not detect some parasites that occasionally cause diarrheal illness. Cryptosporidium Antigen and/or Cyclospora Isospora Exam may be ordered to detect these parasites. For additional information, please refer to https://education.[employer]/faq/FAQ 203 (This link is being provided for informational/ educational purposes only.) THIS TEST WAS PERFORMED AT: [facility] [address] [address] JOANIE HOGUE MD GI PANEL Reviewed date:01/27/2024 06:23:33 PM Interpretation: Performing Lab:[facility], [address] [place] [phone] Notes/Report: Campylobacter Not Detected Not Detect. Plesiomonas [...] is performed by Multiplexed PCR, utilizing the [employer] Array. Complete Blood Count Auto Di ff (Not yet reviewed by provider) Interpretation: Performing Lab:[facility], [address] [place] [phone] Notes/Report: White Blood Count 5.5 4.8-10.8 X10*3/uL [...] te Reviewed date:07/13/2024 07:08:00 PM Interpretation: Performing Lab:[facility], [address] [place] [phone] Notes/Report: Erythrocyte Sedimentation Rate 27 0-15 MM/HR Patients with polycythemia and many hemoglobin abnormalities may have depressed sed rates whereas patients with anemia may have elevated sed rates. Liver Panel Reviewed date:07/13/2024 07:07:38 PM Interpretation: Performing Lab:[address] [address] Notes/Report: Bilirubin Total 0.4 0.0-1.0 mg/dL Bilirubin Direct 0.1 0.0-0.5 mg/dL Aspartate Amino Transferase 23 5-37 U/L Alanine Aminotransferase 17 0-40 U/L Total Protein 7.1 6.5-8.0 g/dL Albumin Level 3.8 3.5-5.0 g/dL Alkaline Phosphatase 119 39-117 U/L Basic Metabolic Panel Reviewed date:07/13/2024 07:07:22 PM Interpretation: Performing Lab:[address] [address] Notes/Report: Sodium 139 135-145 mmol/L Potassium 4.1 [...] Protein Reviewed date:07/13/2024 07:07:50 PM Interpretation: Performing Lab:[facility], [address] [place] [phone] Notes/Report: C Reactive Protein 0.24 < or = 0.50 mg/dL Folate Reviewed date:07/20/2024 05:23:21 PM Interpretation: Performing Lab:[facility], [address] [place] [phone] Notes/Report: Folate 12.6 > or = 4.0 ng/mL Reference Values: > or = 4.0 ng/mL < 4.0 ng/mL suggests folate deficiency Methotrexate, aminopterin and folinic acid (leucovorin) are chemotherapeutic agents whose molecular structures are similar to folate; therefore, the Sand Polisher folate assay cannot be used for patients using these drugs. Leukocytes Stool Qualitative Reviewed date:07/24/2024 12:40:57 PM Interpretation: Performing Lab:[facility], [address] [place] [phone] Notes/Report: Leukocytes Stool Qualitative NEGATIVE NEGATIVE Calprotectin, Fecal Reviewed date:07/29/2024 04:12:47 PM Interpretation: Performing Lab:[facility], [address] [place] [phone] Notes/Report: Calprotectin, Fecal 390 Reference Range: <50 [...] borderline values. THIS TEST WAS PERFORMED AT: [facility] [address] [place] [address] BENNIE BEDOLLA MD,PHD,XIOMARA CDiff Gene PCR Reviewed date:07/29/2024 04:12:58 PM Interpretation: Performing Lab:[facility], [address] [place] [phone] Notes/Report: CDiff Gene PCR NEGATIVE Negative If C. difficile strongly suspected despite one negative test, a second test may be sent vs. empiric treatment for C. difficile infection. GI PANEL Reviewed date:07/24/2024 12:40:48 PM Interpretation: Performing Lab:[address] [address] Notes/Report: Campylobacter Not Detected Not Detect. Plesiomonas [...] is performed by Multiplexed PCR, utilizing the [employer] Array. Complete Blood Count Auto Di ff Reviewed date:08/19/2024 09:34:23 PM Interpretation: Performing Lab:[address] [place] [address] Notes/Report: White Blood Count 5.4 4.8-10.8 X10*3/uL Red Blood Count 2.84 4.60-5.80 X10*6/uL Hemoglobin 7.5 14.0-18.0 g/dl Hematocrit 24.7 42.0-52.0 % Mean Corpuscular Volume 87.0 80.0-98.0 fL Mean Corpuscular Hemoglobin 26.4 27.0-33.0 pg Mean Corpuscular HGB Conc 30.4 31.0-36.0 g/dl Red Cell Distribution Width 17.2 11.0-16.0 % Platelet Count 255 160-400 X10*3/uL Mean Platelet Volume 10.2 9.4-12.4 fL Neutrophils Percent Auto 61.5 45-73 % Imm Gran Pct Auto 0.4 0.0-0.4 % Lymphocytes Percent Auto 20.9 20-40 % Monocytes Percent Auto 12.0 2-11 % Eosinophils Percent Auto 4.1 0-4 % Basophils Percent Auto 1.1 0-2 % NRBC Pct Auto 0.0 0.0-0.2 /100WBC Neutrophils Absolute Auto 3.3 2.0-8.3 x10*3/uL Imm Gran Abs Auto 0.02 0.00-0.03 X10*3/uL Lymphocytes Absolute Auto 1.1 1.2-4.9 X10*3/uL Monocytes Absolute Auto 0.6 0.1-1.2 X10*3/uL Eosinophils Absolute Auto 0.2 0.0-0.4 X10*3/uL Basophils Absolute Auto 0.1 0.0-0.2 X10*3/uL NRBC Abs Auto 0.000 0.0-0.012 X10*3/uL Erythrocyte Sedimentation Ra te Reviewed date:08/10/2024 06:09:31 PM Interpretation: Performing Lab:[facility], [address] [place] [phone] Notes/Report: Erythrocyte Sedimentation Rate 38 0-15 MM/HR Patients with polycythemia and many hemoglobin abnormalities may have depressed sed rates whereas patients with anemia may have elevated sed rates. Liver Panel Reviewed date:08/10/2024 06:09:21 PM Interpretation: Performing Lab:[facility], [address] [place] [phone] Notes/Report: Bilirubin Total 0.3 0.0-1.0 mg/dL Bilirubin Direct 0.1 0.0-0.5 mg/dL Aspartate Amino Transferase 19 5-37 U/L Alanine Aminotransferase 17 0-40 U/L Total Protein 7.3 6.5-8.0 g/dL Albumin Level 3.8 3.5-5.0 g/dL Alkaline Phosphatase 105 39-117 U/L Basic Metabolic Panel Reviewed date:08/10/2024 06:09:03 PM Interpretation: Performing Lab:[facility], [address] [place] [phone] Notes/Report: Sodium 139 135-145 mmol/L Potassium 4.1 3.3-5.1 mmol/L Chloride 106 96-108 mmol/L Carbon Dioxide 26 22-29 mmol/L Anion Gap 11 12-20 Blood Urea Nitrogen 11 9-16 mg/dL Creatinine 1.21 0.5-1.4 mg/dL Estimated Glomerular Filt Rate > 60 Chronic Kidney Disease: Estimated GFR < 60 mL/min/1.73m2 Severe Kidney Disease: Estimated GFR < 15 mL/min/1.73m2 Glucose Random 98 60-115 mg/dL Calcium 8.8 8.4-10.2 mg/dL IRON PROFILE Reviewed date:08/10/2024 06:08:36 PM Interpretation: Performing Lab:[facility], [address] [place] [phone] Notes/Report: Iron 12 45-160 mcg/dL Total Iron Binding Capacity 467 228-428 mcg/dL Percent Iron Saturation 3 15-50 % Unsaturated Iron Binding 455 Ferritin Reviewed date:08/10/2024 06:08:18 PM Interpretation: Performing Lab:[facility], [address] [place] [phone] Notes/Report: Ferritin 7 20-250 ng/mL C Reactive Protein Reviewed date:08/10/2024 06:08:07 PM Interpretation: Performing Lab:[facility], [address] [place] [phone] Notes/Report: C Reactive Protein 0.28 < or = 0.50 mg/dL Vitamin B12 Reviewed date:08/10/2024 04:20:38 PM Interpretation: Performing Lab:[facility], [address] [place] [phone] Notes/Report: Vitamin B12 802 200-900 pg/mL NORMAL 200-900 PG/ML INDETERMINATE 160-199 PG/ML DEFICIENT < 160 PG/ML Pathology Reviewed date:08/30/2024 06:32:21 PM Interpretation: Performing Lab:[facility], [address] [place] [address] Notes/Report: --- Name: Jose Winslow Age/Sex: 49/M : 1975 Unit#: [id number] Attend Dr: Waqas Diaz MD Re08/23/24 Status : [facility] Location: [facility] Disch: --- SPEC : [id number] REC STATUS: KATELYN RELiudmila NUM: [id number] MAYELA: 08/23/241503 [facility] DR: Waqas Diaz MD ENTERED: 08/24/24 SP TYPE: Surgical OTHR DR: Faye Avelar MD ORDERED: HE Stain/9, Gross Micro L4/3, IHC, Special st. 2, H. pylori, AB/PAS Addendum Addendum 1 Entered: 08/30/244033 Immunostain for H. pylori on A shows rare organisms suspicious for H.pylori. Additional level with AB/PAS on B is negative for intestinal metaplasia. Controls stain appropriately. Addendum Signed (signature on file) Anne-Marie Tay 08/30/24 1737 --- Diagnosis A. Gastric antrum, biopsy: Gastric antral mucosa with reactive changes and mild chronic gastritis with focal activity; negative for intestinal metaplasia and dysplasia. B. Esophagogastric junction, at 39 cm, biopsy: Squamous mucosa with hyperplasia, mild spongiosis, and foca l intraepithelial neutrophils and eosinophils (up to 4 per high-power field) and columnar mucosa with mild chronic active inflammation, consistent with esophagitis; no intestinal metaplasia seen on initial levels; negative for dysplasia. C. Terminal ileum, biopsy: Ileal mucosa with no specific change. Comment: (A): Immunostain for H. pylori pending; addendum to follow. (B): Additional leve l with AB/PAS stain pending; addendum to follow. Clinical History Pre-Op Dx: PUD, anemia Post-Op Dx: Hiatal hernia, reflux, hemorrhoids Microscopic Description Microscopic sections reviewed. Material Received A. Gastric antrum B. EG junction at 39 cm C. TI CONTINUED ON NEXT PAGE --- Name: Jose Winslow Age/Sex: 49/M : 1975 Unit#: [id number] Attend Dr: Waqas Diaz MD Re08/23/24 Status : [facility] Location: [facility] Disch: --- SPEC : [id number] RECD : 08/24/24 STATUS: KATELYN FLORES NUM: [id number] MAYELA: 08/23/24-[address] [facility] [address]: Waqas Diaz MD ENTERED: 08/24/24-11 25 SP TYPE: Surgical OTHR DR: Faye Avelar MD ORDERED: HE Stain/9, Gross Micro L4/3, IHC, Special st. 2, H. pylori, AB/PAS Gross Description Received in 3 parts. A. Received in forma kayla labeled ?gastric antrum? are 4 fragments of klein-white soft tissue measuring 0.4-0.5 cm in greatest dimension which are wrapped in lens paper and entirely submitted for microscopic examination, 4 pieces in cassette A. B. Received in forma kayla labeled ?EG junction at 39 cm? are 3 fragments of klein-white soft tissue measuring 0.2-0.4 cm in greatest dimension which are wrapped in lens paper and entirely submitted f or microscopic examination, 3 pieces in cassette B. C. Received in forma kayla labeled ?TI? are 3 fragments of klein-white soft tissue measuring 0.3-0.[address] dimension which are wrapped in lens paper and entirely submitted for microscopic examination, 3 pieces in cassette C. ([facility]) Special studies orde red and performed: Immunostain for H. pylori on A1; AB/PAS stains on B1. Copies To: Faye Avelar MD [facility] Primary [facility], [place] [address] [place] [address] Waqas Diaz MD [address] [place] [address] --- Signed (signature on file) Anne-Marie Tay 08/27/24 1316 --- END OF REPORT Complete Blood Count Auto Di ff (Not yet reviewed by provider) Interpretation: Performing Lab:[facility], [address] [place] [phone] Notes/Report: White Blood Count 6.5 4.8-10.8 X10*3/uL Red Blood Count 4.18 4.60-5.80 X10*6/uL Hemoglobin 10.7 14.0-18.0 g/dl Hematocrit 35.6 42.0-52.0 % Mean Corpuscular Volume 85.2 80.0-98.0 fL Mean Corpuscular Hemoglobin 25.6 27.0-33.0 pg Mean Corpuscular HGB Conc 30.1 31.0-36.0 g/dl Red Cell Distribution Width 20.8 11.0-16.0 % Platelet Count 194 160-400 X10*3/uL Mean Platelet Volume 9.6 9.4-12.4 fL Neutrophils Percent Auto 56.9 45-73 % Imm Gran Pct Auto 0.3 0.0-0.4 % Lymphocytes Percent Auto 25.8 20-40 % Monocytes Percent Auto 10.1 2-11 % Eosinophils Percent Auto 5.4 0-4 % Basophils Percent Auto 1.5 0-2 % NRBC Pct Auto 0.0 0.0-0.2 /100WBC Neutrophils Absolute Auto 3.7 2.0-8.3 x10*3/uL Imm Gran Abs Auto 0.02 0.00-0.03 X10*3/uL Lymphocytes Absolute Auto 1.7 1.2-4.9 X10*3/uL Monocytes Absolute Auto 0.7 0.1-1.2 X10*3/uL Eosinophils Absolute Auto 0.4 0.0-0.4 X10*3/uL Basophils Absolute Auto 0.1 0.0-0.2 X10*3/uL NRBC Abs Auto 0.000 0.0-0.012 X10*3/uL IRON PROFILE Reviewed date:09/24/2024 11:13:18 PM Interpretation: Performing Lab:[address] [phone] Notes/Report: Iron 36 45-160 mcg/dL Total Iron Binding Capacity 424 228-428 mcg/dL Percent Iron Saturation 8 15-50 % Unsaturated Iron Binding 388 Ferritin Reviewed date:09/22/2024 10:10:47 PM Interpretation: Performing Lab:[facility], [address] [place] [phone] Notes/Report: Ferritin 28 20-250 ng/mL Reason For Referral No Information Medications Medication SIG (Take, Route, Frequency, Duration) Notes Start Date End Date Status Amoxicillin 500 MG 2 Orally Twice a day for 10 days 08/30/2024 Active Clarithromycin 500 MG 1 tablet Orally Twice a day for 10 days 08/30/2024 Active Omeprazole 20 MG 1 Orally Twice a day for 10 days 08/30/2024 Active Omeprazole 20 MG 1 every morning Orally Once a day for 30 days Please tell him to start this Rx after he finishes the 10 days of the H.pylori treatment with the 10 day Rx's for the twice a day omeprazole, Amoxicillin, and Clarithromycin. Thanks very much 08/30/2024 Active Lomotil 2.5-0.025 MG 1 or 2 Orally Every 4 to 6 hours as needed for diarrhea. You can take 1 or 2 first thing every morning and before meals to try to prevent the diarrhea in the first place. for 30 days 07/08/2024 Not-Taking Vitamin B 12 250 MCG 2 lozenges Orally Once a day for 30 day(s) Active Iron (Ferrous Sulfate) 325 (65 Fe) MG 1 tablet Orally twice a day Active Valsartan 40 MG TAKE 1 TABLET BY MOUTH EVERY DAY Oral for 30 Active Omeprazole 40 MG TAKE 1 CAPSULE BY MOUTH EVERY DAY for 90 Active Vitamin D 50 MCG (1999 UT) 1 tablet Orally Once a day Active Folic Acid 1 MG 1 tablet Orally Once a day 12/05/2023 Active Atenolol 25 MG 1 tablet Orally Once a day for 30 day(s) 11/30/2023 Active Immunizations Vaccine Route Administration Date Status Comme nts Influenza Unknown 04/12/2023 Administered Social History Tobacco Use: Social History Observation Description Date Details (start date - stop date) Current Smoker NA - NA Tobacco Use/Smoking Question Answer Notes Patient is a current smoker AUDIT-C (Standard) Question Answer Notes Did you [...] no sig alcohol Smoker; no sig alcohol Smoker; no sig alcohol Problems Problem Type SNOMED Code ICD Code Onset Dates Problem Status W/U Status Risk Notes Problem Rectal bleeding (32949264) Rectal bleeding (K62.5) Active confirmed Problem History of adenomatous polyp of colon (826582694) History of adenomatous polyp of colon (Z86.010) Active confirmed Problem Constipation (93569897) Constipation (K59.00) Active confirmed Problem Diarrhea (08385172) Diarrhea (R19.7) Active con firmed Problem Imaging of gastrointestinal tract abnormal (908032864) Abnormal findings on diagnostic imaging of other parts of digestive tract (R93.3) Active confirmed Problem Helicobacter pylori (89960179) Helicobacter pylori [H. pylori] as the cause of diseases classified elsewhere (B96.81) Active confirmed Problem Diverticular disease of colon (761708642) Diverticulosis of large intestine without perforation or abscess without bleeding (K57.30) Active confirmed Problem Abnormal weight loss (011613599) Abnormal weight loss (R63.4) Active confirmed Problem Duodenitis (30562299) Duodenitis (K29.80) Active confirmed Problem Hemorrhage of rectum and anus (599377963) Rectal bleed (K62.5) Active confirmed Problem Anemia (202158092) Anemia (D64.9) Active confir med Problem Iron deficiency anemia due to chronic blood loss (349807902) 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) Active confirmed Problem Peptic ulcer disease (45633728) Peptic ulcer disease (K27.9) Active confirmed Problem Chronic gastric ulcer (97958742) Chronic gastric ulcer (K25.7) Active confirmed Problem Chronic diarrhea (381771483) Chronic diarrhea (K52.9) Active confirmed Problem Gastric ulcer (839461440) Gastric ulcer (K25.9) Active confirmed Problem Duodenal ulcer disease (07747086) Duodenal ulcer disease (K26.9) Active confirmed Problem Weight decreased (606962699) Loss of weight (R63.4) Active confirmed Problem Gastroesophageal reflux disease with esophagitis (disorder) (758676892) Gastroesophageal reflux disease with esophagitis without hemorrhage (K21.00) Active confirmed Vital Signs Temperature 97.3 degrees Fahrenheit 11/30/2023 Blood pressure diastolic 111 mm Hg 08/30/2024 Height 71 in 08/30/2024 Blood pressure systolic 111 mm Hg 08/30/2024 Weight 174 lbs 08/30/2024 BMI 24.27 kg/m2 08/30/2024 Procedures Procedure Date Ordered Date Performed Result Body Sit e UPPER GI ENDOSCOPY 07/24/2024 N/A COLONOSCOPY 07/24/2024 N/A Encounters Encounter Location Date Provider Diagnosis [facility] Outpatient [address] [place] [address] [id number] 12/15/2023 Waqas Diaz Colon polyps K63.5 ; Diarrhea R19.7 ; Rectal bleeding K62.5 ; Weight loss R63.4 ; Diverticulosis of large intestine without perforation or abscess without bleeding K57.30 and Other hemorrhoids K64.8 [facility] Outpatient [address] [place] [address] [id number] 01/18/2024 Waqas Diaz Gastroesophageal ref lux disease with esophagitis without hemorrhage K21.00 ; Duodenitis K29.80 ; Duodenal ulcer disease K26.9 ; Gastric ulcer K25.9 ; Hiatal hernia K44.9 ; Abn findings-GI tract R93.3 and Weight loss R63.4 [facility] Outpatient [address] [place] [address] [id number] 08/23/2024 Waqas Diaz Rectal bleed K62.5 ; 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 ; Diverticulosis of large intestine without perforation or abscess without bleeding K57.30 ; Other hemorrhoids K64.8 ; Hiatal hernia K44.9 and Gastro-esophageal reflux disease without esophagitis K21.9 [facility] [address] [place] [phone] 11/30/2023 Waqas Diaz Diarrhea R19.7 ; Rec keeley bleed K62.5 and Loss of weight R63.4 [facility] [address] [place] [phone] 03/01/2024 Waqas Diaz Diarrhea R19.7 ; Chr onic gastric ulcer K25.7 ; Helicobacter pylori [H. pylori] as the cause of diseases classified elsewhere B96.81 and History of adenomatous polyp of colon Z86.010 [facility] [address] [place] [phone] 08/30/2024 Waaqs Diaz Rectal bleed K62.5 ; Iron deficiency anemia due to chronic blood loss D50.0 ; Abnormal weight loss R63.4 ; Gastric ulcer K25.9 and Constipation K59.00 [facility] [address] [place] [id number] 09/02/2024 Waqas Diaz [facility] [address] [place] [phone] 12/01/2023 Waqas Diaz [facility] [address] [place] [id number] 12/01/2023 Waqas Diaz [facility] [address] [place] [phone] 12/20/2023 Waqas Diaz Chronic diarrhea K52 .9 ; Abnormal weight loss R63.4 and Abnormal findings on diagnostic imaging of other parts of digestive tract R93.3 [facility] [address] [place] [phone] 01/15/2024 Waqas Diaz [facility] [address] [place] [id number] 01/18/2024 Waqas Diaz [facility] [address] [place] [id number] 01/19/2024 Waqas Diaz [facility] [address] [place] [id number] 01/25/2024 Waqas Diaz [facility] [address] [place] [phone] 02/03/2024 Waqas Diaz [facility] [address] [place] [phone] 06/21/2024 Waqas Emily Diarrhea R19.7 ; Rec keeley bleeding K62.5 and Folate deficiency E53.8 [facility] [address] [place] [phone] 07/04/2024 Waqas Diaz [facility] [address] [place] [phone] 07/24/2024 Waqas Diaz Diarrhea R19.7 ; Rec keeley bleeding K62.5 ; Anemia D64.9 and Peptic ulcer disease K27.9 [facility] [address] [place] [phone] 08/21/2024 Waqas Diaz [facility] [address] [place] [phone] 08/30/2024 Waqas Diaz Assessments Encounter Date Diagnosis (ICD Code) Assessment Notes Treatment Notes Treatment Clinical Notes Section Notes 12/15/2023 Diarrhea (ICD-10 - R19.7) 12/15/2023 Colon polyps (ICD-10 - K63.5) 01/18/2024 Duodenitis (ICD-10 - K29.80) 01/18/2024 Gastroesophageal reflux disease with esophagitis without hemorrhage (ICD-10 - K21.00) 08/23/2024 Iron 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 (chronic) (ICD-10 - D50.0) 08/23/2024 Rectal bleed (ICD-10 - K62.5) 11/30/2023 Diarrhea (ICD-10 - R19.7) Need clearance from the [facility] and/or [facility] Cardiology Given Heath's clinical history and appearance [...] will also be in touch with his [facility] and [facility] cardiologists to obtain some information and clearance [...] will also be in touch with his [facility] and [facility] cardiologists to obtain some information and clearance [...] keep you advised of his progress. 08/30/2024 Rectal bleed (ICD-10 - K62.5) Overall, [...] to keep you advised of his progress. 12/20/2023 Chronic diarrhea (ICD-10 - K52.9) 06/21/2024 Rectal bleeding (ICD-10 - K62.5) 06/21/2024 Diarrhea (ICD-10 - R19.7) 07/24/2024 Rectal bleeding (ICD-10 - K62.5) 07/24/2024 Diarrhea (ICD-10 - R19.7) 12/15/2023 Rectal bleeding (ICD-10 - K62.5) 01/18/2024 Duodenal ulcer disease (ICD-10 - K26.9) 08/23/2024 Diverticulosis of large intestine without perforation or abscess without bleeding (ICD-10 - K57.30) 11/30/2023 Loss of weight (ICD-10 - R63.4) [...] will also be in touch with his [facility] and [facility] cardiologists to obtain some information and clearance [...] to keep you advised of his progress. 12/20/2023 Abnormal weight loss (ICD-10 - R63.4) 07/24/2024 Anemia (ICD-10 - D64.9) 12/15/2023 Weight loss (ICD-10 - R63.4) 01/18/2024 Gastric ulcer (ICD-10 - K25.9) 08/23/2024 Other hemorrhoids (ICD-10 - K64.8) 03/01/2024 History of adenomatous polyp of colon [...] week treatmernt then stay on omeporazole 20mg mcfp for now. Overall, Heath currently appears quite [...] to keep you advised of his progress. 12/20/2023 Abnormal findings on diagnostic imaging of other parts of digestive tract (ICD-10 - R93.3) 07/24/2024 Peptic ulcer disease (ICD-10 - K27.9) 12/15/2023 Diverticulosis of large intestine without perforation or abscess without bleeding (ICD-10 - K57.30) 01/18/2024 Hiatal hernia (ICD-10 - K44.9) 08/23/2024 Hiatal hernia (ICD-10 - K44.9) 08/30/2024 Constipation (ICD-10 - K59.00) Use Colace [...] to keep you advised of his progress. 06/21/2024 Folate deficiency (ICD-10 - E53.8) 12/15/2023 Other hemorrhoids (ICD-10 - K64.8) 01/18/2024 Abn findings-GI tract (ICD-10 - R93.3) 08/23/2024 Gastro-esophageal reflux disease without esophagitis (ICD-10 - K21.9) 01/18/2024 Weight loss (ICD-10 - R63.4) Plan Of Treatment Pending Test Test Name Order Date UPPER GI ENDOSCOPY 07/24/2024 COLONOSCOPY 07/24/2024 CHEM 7 PROFILE 06/21/2024 CHEM 7 PROFILE 11/30/2023 CHEM 7 PROFILE 12/20/2023 CHEM 7 PROFILE 07/24/2024 LIVER PROFILE 06/21/2024 LIVER PROFILE 11/30/2023 IRON + IBC (FE) 11/30/2023 IRON + IBC (FE) 08/30/2024 CRP 06/21/2024 CRP 11/30/2023 CRP 07/24/2024 VITAMIN B12 AND FOLATE 11/30/2023 CBC w DIFF 07/24/2024 CBC w DIFF 08/30/2024 CBC w DIFF 11/30/2023 CBC w DIFF 06/21/2024 SED RATE (ESR) 07/24/2024 SED RATE (ESR) 11/30/2023 SED RATE (ESR) 06/21/2024 STOOL WBC 12/20/2023 CELIAC PANEL #10 11/30/2023 CT ABD & PELVIS WITH CONTRAST 12/20/2023 STOOL WBC 06/21/2024 C DIFFICILE RFLX PCR 12/20/2023 C DIFFICILE RFLX PCR 06/21/2024 Complete Blood Count Auto Diff Complete Blood Count Auto Diff Ferritin 08/30/2024 Folate 06/21/2024 Trypsin 12/20/2023 H pylori Ag Stool 07/24/2024 Giardia Ag Stool EIA 12/20/2023 Pancreatic Elastase-1 12/20/2023 Fecal Fat Qualitative 12/20/2023 Calprotectin, Fecal 12/20/2023 Calprotectin, Fecal 07/24/2024 Calprotectin, Fecal 06/21/2024 Ova and Parasite 12/20/2023 GI PANEL 12/20/2023 GI PANEL 06/21/2024 Future Test Test Name Order Date COLONOSCOPY 11/30/2023 UPPER GI ENDOSCOPY 01/05/2024 Insurance Providers Payer Name Payer Address Payer Phone Subscriber Number Group Number Insured Name Patient Relationship to Insured Coverage Start Date Coverage End Date [facility] [address] [place] [address] [id number] JOSE WINSLOW Self - patient is the insured Medical (General) History Medical History History ICD Code Mitral valve insufficiency-- scheduled for surgery for a mitral valve repair at [facility] on 04/24/2024--has initially been seeing Dr. Doherty but was then referred to [facility] for his surgery HTN Denies NM,DM,CVA,Lung disease,renal dise ase Chronic diarrhea-colonoscopy as below--negative [...] on 12/[address] scan at [facility]--- this appears to be an incidental finding as he is asymptomatic in that regard-reviewed with patient at the 03/01/24 OV Surgical History Surgery Date(Month/Year)
--- NOTE | 2024-09-27 15:44 | MHC.OFFVIS ---
Intake Visit Reasons: CAPSULE ENDOSCOPY - Bj Allergies No Known Allergies Allergy (Verified 08/23/24 13:18) [facility] Medical History (Updated 08/23/24 @ 13:37 by Fabby Kruse, RN) Murmur Hx of peptic ulcer Iron deficiency anemia HTN (hypertension) Severe mitral regurgitation Surgical History (Updated 08/23/24 @ 13:17 by Fabby Kruse, RN) History of esophagogastroduodenoscopy (EGD) H/O colonoscopy Family History Father No problems noted. Mother No problems noted. Social History Housing: House Alcohol intake: current Alcohol intake frequency: a few times a month Patient Tobacco Use Status: Current everyday Tobacco user Tobacco use type: Cigarette Cigarettes Per Day: 3 e-Cigarette/Vaping Use: Never Used Current occupational status: employed Cognitive needs: No Hearing needs: No Vision needs: Yes Office Procedures AMB Capsule Endoscopy Procedure Notes: Capsule Endoscopy: Date of Service:09/26/24 Indication: iron def anemia Findings: Lower esophagus with irregular Z line and few islands of salmon pink tissue. Stomach with granular mucosa and patchy erythema. Duodenum entered at 20 min 59 sec with patchy erythema noted in bulb and D2. Prominent fold noted right at the inlet to the duodenum, difficult to say if just a fold or prolapsed polyp. Cecum reached 4 hr 56. No active bleeding seen. Conclusion: Possible Barretts gastritis duodenitis, prominent fold vs inflammed prolapsed polyp near pyloric outlet and duodenal inlet area Capsule Endoscopy CPT Code: 61384 - Capsule Endoscopy Assessment & Plan Assessment & Plan (1) Iron deficiency anemia: Code(s): D50.9 - Iron deficiency anemia, unspecified Category: Medical Qualifiers: Iron deficiency anemia type: chronic blood loss Qualified Code(s): D50.0 - Iron 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 (chronic) Plan: as above Coding Level of Care Code Procedure Only Diagnoses Iron deficiency anemia due to chronic blood loss D50.0 Iron deficiency anemia type: chronic blood loss CPT Codes AMB Capsule Endoscopy - Capsule Endoscopy CPT Code: 54270 - Capsule Endoscopy ([id number])
== END 2024-09-26 08:33 | disposition home or self-care (01) ==
LOC: HO.HGI 07:59
PROVIDERS: PCP Internal Medicine; Visit Provider Internal Medicine Gastroenterology
DX: D50.0 Iron deficiency anemia secondary to blood loss (chronic) (principal); K29.70 Gastritis, unspecified, without bleeding; K29.80 Duodenitis without bleeding
CPT/HCPCS: 91110

== ENCOUNTER → 2024-09-26 07:58 | Outpatient (BNVA) | payer BC, SELFPAY | PROVIDERS: PCP Internal Medicine; Visit Provider Internal Medicine Gastroenterology | DX: D50.0 Iron deficiency anemia secondary to blood loss (chronic) (principal) | CPT/HCPCS: 91110 ==

== ENCOUNTER 2024-12-13 08:15 | Outpatient (AMB) | payer BC, SELFPAY ==
--- OUTSIDE RECORDS SUMMARY | 2024-08-09 10:00 | XMS_ITS ---
Author Organization [facility] Address [address] [place] [address] Care Team Providers Care Replenishment Analyst Name Role Phone Valentino HATCH, Faye Primary Care Provider Waqas Cash [phone] Encounters Encounter Location Date Provider Diagnosis [facility] [place] [address] [place], [place] [id number] 08/09/2024 Waqas Diaz Plan Of Treatment Next Appt Details Provider Name:Waqas Diaz , 03/05/2025 10:20:00 AM, [address], [address], [place], [address], Progress Notes * JOSE WINSLOWDOB: [birth year] (49 yo M)Acc No.[id number]:08/09/2024 COLON WITH MAC Patient: Codey MCGEE JOSE Baez Provider: Jimena Diaz MD :1975 A ge:49 Y S ex:Male Date:08/09/2024 Address:[id number] Pcp:Faye Avelar MD Subjective: * Chief Complaints: [...] 0 08/09/2024 Generated for Blanca lou/Ariel/Mally on: 0 12/13/2024 08:25 AM EDT
--- OUTSIDE RECORDS SUMMARY | 2024-12-13 08:25 | XMS_ITS | Encounter Summary ---
Author Organization [facility] Address [address] [place] [id number] Phone Care Team Providers Care Clinical Tech Name Role Phone Faye Avelar MD Primary Care Provider [phone] Shagufta Bhakta MD, PhD Unavailable [phone] Encounter Details Date Type Department Care Team ([facility] st Contact Info) Description 04/24/2024 Telephone VIRTUAL DEPARTMENT [address] [place] [phone] Natalie Acosta MD [address] [place] [id number] [email or web address] Social History Tobacco Use Types Packs/Day Years Used Date Smoking Tobacco: Every Day Cigarettes Smokeless Tobacco: Never Comments:3-4 cigarettes/day Alcohol Use Standard Drinks/Week Comments Yes 2 (1 standard drink = 0.6 oz pur e alcohol) Education Answer Date Recorded Are you interested in more education? Not on canelo e 09/21/2023 Are you concerned about learning? Not on file 09/21/2023 No 09/21/2023 No 09/21/2023 Digital Access Answer Date Recorded No 09/21/2023 No 09/21/2023 Reliable internet access at home? Not on file 09/21/2023 Device with a working camera? Not on file Sex and Gender Information Value Date Recorded Sex Assigned at Male 09/19/2023 2:01 PM EDT Legal Sex Male 1:58 PM EDT Gender Identity Male 09/19/2023 2:01 PM EDT Sexual Orientation Straight 09/19/2023 2: 01 PM EDT documented as of this encounter Plan of Treatment Upcoming Encounters Date Type Department Care Team (Latest Contact Info) Description 01/14/2025 11:00 AM EDT Pre-Admission Testing [facility] HEART VALVE PROGRAM [address] 5th [address], [address] [place] [address] Natalie Acosta MD [address] [address] [email or web address] 01/29/2025 Procedure Pass [facility] PERIOPERATIVE DEPT [address] [place] [phone] 01/29/2025 7:30 AM EDT Hospital Encounter [facility] PERIOPERATIVE DEPT [address] [place] [phone] Natalie Acosta MD [address] [place] [id number] [email or web address] 01/29/2025 7:30 AM EDT - 01/29/2025 2:11 PM EDT Surgery [facility] PERIOPERATIVE DEPT [address] [place] [phone] Natalie Acosta MD [address] [place] [phone] [email or web address] REPAIR MITRAL VALVE ( tissue ) Scheduled Procedures Name Priority Associated Diagnoses Date/Ti va ROBOTIC REPAIR MITRAL VALVE Mitral valve prolapse 01/29/2025 7:30 AM EDT documented as of this encounter Visit Diagnoses Not on filedocumented in this encounter Care Teams Clinical Tech Relationship Specialty Start Date End Date Faye Avelar MD [facility] [place] [phone] PCP - General Internal Medicine 09/19/23 Shagufta Bhakta MD, PhD [address] [place] [address] [email or web address] Interventional Cardiology 10/11/23 documented as of this encounter Additional Source Comments The information contained in this document represents components of the legal health record. It is not the complete legal health record.[facility]
--- NOTE | 2024-12-13 10:50 | A.OFFPC_ITS ---
Intake Visit Reasons: blood work request Allergies No Known Allergies Allergy (Verified 08/23/24 13:18) Medication List - Last Reconciled 12/13/24 by Faye Avelar MD atenolol 25 mg PO DAILY cholecalciferol (vitamin D3) 50 mcg PO DAILY cyanocobalamin (vitamin B-12) (Vitamin B-12) 500 mcg PO DAILY diphenoxylate-atropine 2.5-0.025 mg 2 tabs PO Q4H PRN ferrous sulfate 324 mg PO TID 90 days folic acid 1 mg PO DAILY omeprazole 40 mg PO DAILY valsartan 40 mg PO DAILY Tobacco use date assessed: 08/17/24 Dental Screening Dental Screen Date: 08/17/24 HPI blood work request HPI Details History - The patient is a 49-year-old male pres enting with gastrointestinal issues and a need for heart surgery. - He reports experiencing gastrointestin al discomfort, including stomach cramps and intermittent rectal bleeding. - These symptoms have persisted since pr ior to a past evaluation, wherein several diagnostic tests including an upper and lower endoscopy and a capsule endoscopy were performed, all yielding no significant findings. - The onset of his gastrointestinal symp toms precedes his postponed heart surgery initially scheduled due to concerns about potential bleeding, as he would require anticoagulation therapy post-operatively. - He describes his stools as being poorl y formed (not solid) and notes that the frequency of bloody stools has decreased over time. - Surgical intervention for his heart esteves s been rescheduled for January 29 to address issues with his mitral valve. - The patient expresses concern about a possible anemic state, considering the past hemoglobin result of 10.7 g/dL from September 18. Medical History: - Gastrointestinal symptoms with negativ e findings on multiple diagnostic evaluations. - Planned mitral valve repair. - History of mild anemia with a hemoglob in level of 10.7 g/dL. Surgical History: - Planned mitral valve repair surgery (u pcoming). Diagnostic Results: - Labs: Hemoglobin level 10.7 g/dL from September 18. - Tests and Diagnostics: Previous upper and lower endoscopy and capsule endoscopy results with no significant findings. Problem List - Gastrointestinal symptoms with intermi ttent rectal bleeding and loose stools. - Mitral valve regurgitation (scheduled for repair). - Mild anemia. Patient Instructions - Start keeping a detailed food diary to identify any potential dietary triggers for gastrointestinal symptoms. - Consume simple, individually prepared foods to better track any symptoms that arise following meals. - Test sensitivity to dairy by eliminati ng and re-introducing it to determine any correlation with symptoms. Review of Systems - General: No fever no chills - Neurological: No headaches no dizziness - Ear nose throat: No sore throat no hearing difficulty no ear pain - Cardiovascular: No syncope, no chest pain, no palpitations PFSH Medical History Murmur Hx of peptic ulcer Iron deficiency anemia HTN (hypertension) Severe mitral regurgitation Surgical History History of esophagogastroduodenoscopy (EGD) H/O colonoscopy Family History Father No problems noted. Mother No problems noted. Social History Housing: House Alcohol intake: current Alcohol intake frequency: a few times a month Patient Tobacco Use Status: Current everyday Tobacco user Tobacco use type: Cigarette Cigarettes Per Day: 3 e-Cigarette/Vaping Use: Never Used Current occupational status: employed Cognitive needs: No Hearing needs: No Vision needs: Yes Questionnaire Thrive Questionnaire Date Thrive assessed: 08/17/24 SYBIL-7 AMB Questionnaire SYBIL-7 Date SYBIL - 7 assessed: 08/17/24 Source: Developed by Drs. Waqas Rutledge, Carol Colon, Oren Brown and colleagues, with an educational kayla from [employer]. Physical exam (Primary Care) Tobacco/Smoking Status: Tobacco use Status Tobacco use date assessed 08/17/24 12/13/24 10:50 Patient Tobacco Use Status Current everyday Tobacco 12/13/24 10:50 Tobacco use type Cigarette 12/13/24 10:50 e-Cigarette/Vaping Use Never Used 12/13/24 10:50 Thrive Assessment: Date of Thrive Assessment Date Thrive assessed 08/17/24 12/13/24 10:50 Telehealth Telehealth Telehealth Platform: [facility] Location of provider rendering services: practice address Location of patient: address on file Patient Identification confirmed using: Name, : Yes Telehealth method: video Patient verbally consented to treatment: Yes Patient verbally consented to billing insurance company: Yes Patient informed of any privacy concerns related to visit: Yes Coding Level of Care Code Tele Est Pt Level 4 (16427) Diagnoses Hematochezia K92.1 Iron deficiency anemia due to chronic blood loss D50.0 Iron deficiency anemia type: chronic blood loss Atrial enlargement, left I51.7 Hypertension, essential I10 Mitral valve prolapse determined by imaging I34.1 Severe mitral regurgitation I34.0 Time Spent (min) 30 Comment reviewing chart/labs/ gastro notes/ face to face / coordination of care Assessment & Plan Assessment & Plan (1) Hematochezia: Code(s): K92.1 - Melena Category: Medical (2) Iron deficiency anemia: Code(s): D50.9 - Iron deficiency anemia, unspecified Category: Medical Qualifiers: Iron deficiency anemia type: chronic blood loss Qualified Code(s): D50.0 - Iron 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 (chronic) (3) Atrial enlargement, left: Code(s): I51.7 - Cardiomegaly Category: Medical (4) Hypertension, essential: Code(s): I10 - Essential (primary) hypertension Category: Medical (5) Mitral valve prolapse determined by imaging: Code(s): I34.1 - Nonrheumatic mitral (valve) prolapse Category: Medical (6) Severe mitral regurgitation: Comment: initially been seeing Dr Doherty but was then referred to [facility]. Code(s): I34.0 - Nonrheumatic mitral (valve) insufficiency Category: Medical Plan History - The patient is a 49-year-old male presenting with gastrointestinal issues and a need for heart surgery. - He reports experiencing gastrointestinal discomfort, including stomach cramps and intermittent rectal bleeding. - These symptoms have persisted since prior to a past evaluation, wherein several diagnostic tests including an upper and lower endoscopy and a capsule endoscopy were performed, all yielding no significant findings. - The onset of his gastrointestinal symptoms precedes his postponed heart surgery initially scheduled due to concerns about potential bleeding, as he would require anticoagulation therapy post-operatively. - He describes his stools as being poorly formed (not solid) and notes that the frequency of bloody stools has decreased over time. - Surgical intervention for his heart has been rescheduled for January 29 to address issues with his mitral valve. - The patient expresses concern about a possible anemic state, considering the past hemoglobin result of 10.7 g/dL from September 18. Medical History: - Gastrointestinal symptoms with negative findings on multiple diagnostic evaluations. - Planned mitral valve repair. - History of mild anemia with a hemoglobin level of 10.7 g/dL. Surgical History: - Planned mitral valve repair surgery (upcoming). Diagnostic Results: - Labs: Hemoglobin level 10.7 g/dL from September 18. - Tests and Diagnostics: Previous upper and lower endoscopy and capsule endoscopy results with no significant findings. Problem List - Gastrointestinal symptoms with intermittent rectal bleeding and loose stools. - Mitral valve regurgitation (scheduled for repair). - Mild anemia. Patient Instructions - Start keeping a detailed food diary to identify any potential dietary triggers for gastrointestinal symptoms. - Consume simple, individually prepared foods to better track any symptoms that arise following meals. - Test sensitivity to dairy by eliminating and re-introducing it to determine any correlation with symptoms. Orders: Orders Ferritin Today D50.0 - Iron 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 (chronic), E55.9 - Vitamin D deficiency, unspecified, I10 - Essential (primary) hypertension, I34.1 - Nonrheumatic mitral (valve) prolapse, K92.1 - Melena Comprehensive Met. Panel Today D50.0 - Iron 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 (chronic), E55.9 - Vitamin D deficiency, unspecified, I10 - Essential (primary) hypertension, I34.1 - Nonrheumatic mitral (valve) prolapse, K92.1 - Melena Vitamin D 25-OH (D2 and D3) Today D50.0 - Iron 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 (chronic), E55.9 - Vitamin D deficiency, unspecified, I10 - Essential (primary) hypertension, I34.1 - Nonrheumatic mitral (valve) prolapse, K92.1 - Melena TSH reflex Free T4 Today D50.0 - Iron 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 (chronic), E55.9 - Vitamin D deficiency, unspecified, I10 - Essential (primary) hypertension, I34.1 - Nonrheumatic mitral (valve) prolapse, K92.1 - Melena IRON PROFILE Today D50.0 - Iron 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 (chronic), E55.9 - Vitamin D deficiency, unspecified, I10 - Essential (primary) hypertension, I34.1 - Nonrheumatic mitral (valve) prolapse, K92.1 - Melena Folate Today D50.0 - Iron 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 (chronic), E55.9 - Vitamin D deficiency, unspecified, I10 - Essential (primary) hypertensio n, I34.1 - Nonrheumatic mitral (valve) prolapse, K92.1 - Melena Complete Blood Count Auto Diff Today D50.0 - Iron 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 (chronic), E55.9 - Vitamin D deficiency, unspecified, I10 - Essential (primary) hypertension, I34.1 - Nonrheumatic mitral (valve) prolapse, K92.1 - Melena Vitamin B12 Today D50.0 - Iron 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 (chronic), E55.9 - Vitamin D deficiency, unspecified, I10 - Essential (primary) hypertension, I34.1 - Nonrheumatic mitral (valve) prolapse, K92.1 - Melena LDL Cholesterol Direct Today D50.0 - Iron 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 (chronic), E55.9 - Vitamin D deficiency, unspecified, I10 - Essential (primary) hypertension, I34.1 - Nonrheumatic mitral (valve) prolapse, K92.1 - Melena
== END 2024-12-13 11:53 | disposition home or self-care (01) ==
LOC: HO.HMCC 08:15
PROVIDERS: PCP Internal Medicine; Visit Provider Internal Medicine
DX: K92.1 Melena (principal); D50.0 Iron deficiency anemia secondary to blood loss (chronic); I51.7 Cardiomegaly; I10 Essential (primary) hypertension; I34.1 Nonrheumatic mitral (valve) prolapse; I34.0 Nonrheumatic mitral (valve) insufficiency

== ENCOUNTER 2024-12-14 12:23 | Outpatient (REF) | payer BC, SELFPAY ==
--- OUTSIDE RECORDS SUMMARY | 2024-08-09 10:00 | XMS_ITS ---
Author Organization [facility] Address [address] [place] [address] Care Team Providers Care Air Reduction Equipment Operator Name Role Phone Valentino HATCH, Faye Primary Care Provider Wqaas Cash [phone] Encounters Encounter Location Date Provider Diagnosis [facility] [place] [address] [place], [place] [id number] 08/09/2024 Waqas Diaz Plan Of Treatment Next Appt Details Provider Name:Waqas Diaz , 03/05/2025 10:20:00 AM, [address], [address], [place], [address], Progress Notes * JOSE WINSLOWDOB: [birth year] (49 yo M)Acc No.[id number]:08/09/2024 COLON WITH MAC Patient: Codey MCGEE JOSE Baez Provider: Jimena Diaz MD :1975 A ge:49 Y S ex:Male Date:08/09/2024 Address:[id number] Pcp:Faye Avelar MD Subjective: * Chief Complaints: [...] 08/09/2024 Generated for Blanca lou/Ariel/Mally on: 0 12/14/2024 12:25 PM EDT
[2024-12-14 15:57] LABS: MANUAL DIFF FLAG NO
[2024-12-14 16:04] LABS: Hematocrit 33.0 % (42.0-52.0); Hemoglobin 9.8 g/dl (14.0-18.0); Imm Gran Abs Auto 0.05 X10*3/uL (0.00-0.03); Imm Gran Pct Auto 0.6 % (0.0-0.4); Lymphocytes Absolute Auto 1.8 X10*3/uL (1.2-4.9); Mean Corpuscular HGB Conc 29.7 g/dl (31.0-36.0); Mean Corpuscular Hemoglobin 23.7 pg (27.0-33.0); Mean Corpuscular Volume 79.9 fL (80.0-98.0); NRBC Abs Auto 0.000 X10*3/uL (0.0-0.012); NRBC Pct Auto 0.0 /100WBC (0.0-0.2); Platelet Count 291 X10*3/uL (160-400); Red Blood Count 4.13 X10*6/uL (4.60-5.80); White Blood Count 8.0 X10*3/uL (4.8-10.8)
[2024-12-14 16:25] LABS: Alanine Aminotransferase 22 U/L (0-40); Albumin Level 4.1 g/dL (3.5-5.0); Alkaline Phosphatase 133 U/L (39-117); Anion Gap 12 (12-20); Aspartate Amino Transferase 28 U/L (5-37); Blood Urea Nitrogen 13 mg/dL (9-16); Calcium 8.5 mg/dL (8.4-10.2); Carbon Dioxide 28 mmol/L (22-29); Chloride 104 mmol/L (96-108); Estimated Glomerular Filt Rate > 60; Iron 14 mcg/dL (45-160); Percent Iron Saturation 3 % (15-50); Potassium 3.9 mmol/L (3.3-5.1); Sodium 140 mmol/L (135-145); Total Iron Binding Capacity 456 mcg/dL (228-428); Total Protein 7.2 g/dL (6.5-8.0); Unsaturated Iron Binding 442 ug/dL
[2024-12-14 16:32] LABS: Ferritin 8 ng/mL (20-250)
[2024-12-14 16:45] LABS: Folate 4.2 ng/mL (> or = 4.0); Vitamin B12 781 pg/mL (200-900)
[2024-12-25 07:35] LABS: Vitamin D 25-OH, D2 <4; Vitamin D 25-OH, D3 42
[2024-12-25 07:36] LABS: Vitamin D 25-OH, Total 42
== END 2024-12-14 12:24 | disposition home or self-care (01) ==
LOC: HO.HMGCLDS 12:23
PROVIDERS: PCP Internal Medicine; Visit Provider Internal Medicine
DX: D50.0 Iron deficiency anemia secondary to blood loss (chronic) (principal); K92.1 Melena; E55.9 Vitamin D deficiency, unspecified; I10 Essential (primary) hypertension; I34.1 Nonrheumatic mitral (valve) prolapse
CPT/HCPCS: 36415; 80053; 82306; 82607; 82728; 82746; 83540; 83721; 84443; 85025

== ENCOUNTER 2024-12-27 08:44 | Outpatient (AMB) | payer BC, SELFPAY ==
--- OUTSIDE RECORDS SUMMARY | 2024-08-09 10:00 | XMS_ITS ---
Author Organization [facility] Address [address] [place] [address] Care Team Providers Care Foreman Shipping Department Name Role Phone Valentino HATCH, Faye Primary Care Provider Waqas Cash [phone] Encounters Encounter Location Date Provider Diagnosis [facility] [place] [address] [place], [place] [id number] 08/09/2024 Waqas Diaz Plan Of Treatment Next Appt Details Provider Name:Waqas Diaz , 03/05/2025 10:20:00 AM, [address], [address], [place], [address], Progress Notes * JOSE WINSLOWDOB: [birth year] (49 yo M)Acc No.[id number]:08/09/2024 COLON WITH MAC Patient: Codey MCGEE JOSE Baez Provider: Jimena Diaz MD :1975 A ge:49 Y S ex:Male Date:08/09/2024 Address:[address] [id number] Pcp:Faye Avelar MD Subjective: * Chief Complaints: [...] 08/09/2024 Generated for Blanca lou/Ariel/Mally on: 0 12/27/2024 09:00 AM EDT
--- OUTSIDE RECORDS SUMMARY | 2024-12-27 09:00 | XMS_ITS | Encounter Summary ---
Author Organization [facility] Address [address] [place] [phone] Phone Care Team Providers Care St[employer] Salesperson Name Role Phone Faye Avelar MD Primary Care Provider [phone] Shagufta Bhakta MD, PhD Unavailable [phone] Encounter Details Date Type Department Care Team ([facility] st Contact Info) Description 04/24/2024 Telephone VIRTUAL DEPARTMENT [address] [place] [phone] Natalie Acosta MD [address] [place] [id number] [email or web address] Social History Tobacco Use Types Packs/Day [...] Description 01/14/2025 11:00 AM EDT Pre-Admission Testing [facility] HEART VALVE PROGRAM [address]th [address], [address] [place] [address] Natalie Acosta MD [address] [id number] [email or web address] 01/29/2025 Procedure Pass [facility] PERIOPERATIVE DEPT [address] [place] [phone] 01/29/2025 7:30 AM EDT Hospital Encounter [facility] PERIOPERATIVE DEPT [address] [place] [phone] Natalie Acosta MD [address] [place] [phone] [email or web address] 01/29/2025 7:30 AM EDT - 01/29/2025 2:11 PM EDT Surgery [facility] PERIOPERATIVE DEPT [address] [place] [address] [phone] Natalie Acosta MD [address] [place] [phone] [email or web address] MITRAL VALVE ( tissue ) Scheduled Procedures Name Priority Associated Diagnoses Date/Ti ri ROBOTIC REPAIR MITRAL VALVE Mitral valve prolapse 01/29/2025 7:30 AM EDT documented as of this encounter Visit Diagnoses Not on filedocumented in this encounter Care Teams [employer] Salesperson Relationship Specialty Start Date End Date Faye Avelar MD [facility] [place] [address] PCP - General Internal Medicine 09/19/23 Shagufta Bhakta MD, PhD [address] [place] [address] [email or web address] Site Project Manager Interventional Cardiology 10/11/23 documented as of this encounter Additional Source Comments The information contained in this document represents components of the legal health record. It is not the complete legal health record.[facility]
--- NOTE | 2024-12-27 09:44 | A.OFFPC_ITS ---
Intake Visit Reasons: lab results Allergies No Known Allergies Allergy (Verified 08/23/24 13:18) Medication List - Last Reconciled 12/27/24 by Faye Avelar MD atenolol 25 mg PO DAILY cholecalciferol (vitamin D3) 50 mcg PO DAILY cyanocobalamin (vitamin B-12) (Vitamin B-12) 500 mcg PO DAILY diphenoxylate-atropine 2.5-0.025 mg 2 tabs PO Q4H PRN ferrous sulfate 324 mg PO TID 90 days folic acid 1 mg PO DAILY omeprazole 40 mg PO DAILY valsartan 40 mg PO DAILY Tobacco use date assessed: 08/17/24 Dental Screening Dental Screen Date: 08/17/24 HPI lab results HPI Details Chief Complaint The patient reports persistent fatigue and gastrointestinal symptoms including stomach cramps and blood in stools. History The patient is a 49-year-old male presenting with fatigue and gastrointestinal symptoms. Fatigue: - The patient has been experiencing pers istent fatigue, attributed to a drop in hemoglobin levels. - A past hemoglobin level of 7.5 in improved to 10.7 in August without a blood transfusion. - The patient took iron supplements and adjusted diet to improve hemoglobin levels. - Feels fatigued with the current hemogl obin level of 9.8. Gastrointestinal Symptoms: - Reports recent stomach cramps and epis odes of blood in stools. - Has been taking iron supplements but s topped for a few days due to constipation concerns. - History of hemorrhoids, which may be e xacerbated by constipation associated with iron supplements. - Bowel movements are typically frequent (6-8 times a day) and sometimes urgent, with occasional loose stools and no solid formation. - Denies constipation, but reports an ur ge to defecate without result at times. - Has not identified dietary triggers de spite food diary tracking. Medical History: - Persistent fatigue related to fluctuat ing hemoglobin levels. - History of hemorrhoids. - Chronic symptoms consistent with Irrit able Bowel Syndrome (IBS). Surgical History: - Planned mitral valve replacement surge ry on January 29 due to mitral valve prolapse with severe regurgitation. Medications: - Iron supplements for managing anemia a nd improving hemoglobin levels. Social History: - The patient monitors dietary intake, a ttempting to include iron-rich foods such as meat and beets. - Adjusted diet and supplemented with ir on to improve hemoglobin levels but with less focus recently. Problem List - Anemia - Gastrointestinal Bleeding likely secon demetri to hemorrhoids - Irritable Bowel Syndrome (IBS) - Mitral Valve Prolapse with Severe Mitr al Regurgitation Diagnostic results Labs: - Hemoglobin levels ranged from 7.5 to 10.7 to 9.8 over a few months. Tests and Diagnostics: - Gastroenterology work-up by Dr. Diaz, including capsule endoscopy. [place] of Care - Patient seen by Dr. Diaz, Gastroenter ologist. - Planned hematology consultation for fu rther assessment and management of anemia. Medication Management - Iron supplements previously reported t o cause constipation. - Potential past issues with adherence d ue to constipation concerns. Medical Decision Making The patient presents with ongoing fatigue and gastrointestinal symptoms complicated by anemia and a need for upcoming mitral valve replacement surgery. No acute causes for gastrointestinal bleeding were identified by Dr. Diaz, indicating hemorrhoids as the probable source of bleeding. Anemia is chronic and partially managed by the patient with dietary adjustments and iron supplements, though constipation remains a concern. Additionally, symptoms suggestive of Irritable Bowel Syndrome (IBS) are present. Possible interventions include hematology consultation to evaluate the necessity of blood transfusions to optimize the patient's hemoglobin status before surgery. The introduction of dicyclomine was considered to address abdominal cramps, potentially related to IBS. Emphasis was placed on the necessity of proceeding with mitral valve replacement surgery despite mild gastrointestinal symptoms. The need for further research into dietary influences on bowel patterns remains a secondary priority. Patient Instructions - Continue taking iron supplements as in structed, monitoring for side effects such as constipation. - Keep a detailed food diary to help kalpesh ntify any potential dietary triggers for GI symptoms. - Contact hematology for an urgent consu ltation regarding anemia management. - Take dicyclomine as prescribed to venkat ge cramping. - Report any worsening of symptoms or ne w issues to healthcare providers. Review of Systems - Gastrointestinal: Reports stomach cram ps, blood in stools, frequent and sometimes loose stools. - Constitutional: Reports fatigue. - Hematologic: Reports history of anemia with fluctuations in hemoglobin levels. - Genitourinary: Denies changes or signi ficant issues. General: No fever no chills neurological: No headaches no dizziness ear nose throat: No sore throat no hearing difficulty no ear pain [facility] Medical History Murmur Hx of peptic ulcer Iron deficiency anemia HTN (hypertension) Severe mitral regurgitation Surgical History History of esophagogastroduodenoscopy (EGD) H/O colonoscopy Family History Father No problems noted. Mother No problems noted. Social History Housing: House Alcohol intake: current Alcohol intake frequency: a few times a month Patient Tobacco Use Status: Current everyday Tobacco user Tobacco use type: Cigarette Cigarettes Per Day: 3 e-Cigarette/Vaping Use: Never Used Current occupational status: employed Cognitive needs: No Hearing needs: No Vision needs: Yes Questionnaire Thrive Questionnaire Date Thrive assessed: 08/17/24 SYBIL-7 AMB Questionnaire SYBIL-7 Date SYBIL - 7 assessed: 08/17/24 Source: Developed by Drs. Waqas Rutledge, Carol Colon, Oren Brown and colleagues, with an educational kayla from [employer]. Physical exam (Primary Care) Tobacco/Smoking Status: Tobacco use Status Tobacco use date assessed 08/17/24 12/27/24 09:44 Patient Tobacco Use Status Current everyday Tobacco 12/27/24 09:44 Tobacco use type Cigarette 12/27/24 09:44 e-Cigarette/Vaping Use Never Used 12/27/24 09:44 Thrive Assessment: Date of Thrive Assessment Date Thrive assessed 08/17/24 12/27/24 09:44 Telehealth Telehealth Telehealth Platform: [facility] Location of provider rendering services: practice address Location of patient: address on file Patient Identification confirmed using: Name, : Yes Telehealth method: video Patient verbally consented to treatment: Yes Patient verbally consented to billing insurance company: Yes Patient informed of any privacy concerns related to visit: Yes Coding Level of Care Code Tele Est Pt Level 4 (82918) Diagnoses Hematochezia K92.1 Iron deficiency anemia due to chronic blood loss D50.0 Iron deficiency anemia type: chronic blood loss Atrial enlargement, left I51.7 Hypertension, essential I10 Mitral valve prolapse determined by imaging I34.1 Severe mitral regurgitation I34.0 Time Spent (min) 30 Comment review labs / Gastro notes / face to face / co ordination of care Assessment & Plan Assessment & Plan (1) Hematochezia: Code(s): K92.1 - Melena Category: Medical (2) Iron deficiency anemia: Code(s): D50.9 - Iron deficiency anemia, unspecified Category: Medical Qualifiers: Iron deficiency anemia type: chronic blood loss Qualified Code(s): D50.0 - Iron 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 (chronic) (3) Atrial enlargement, left: Code(s): I51.7 - Cardiomegaly Category: Medical (4) Hypertension, essential: Code(s): I10 - Essential (primary) hypertension Category: Medical (5) Mitral valve prolapse determined by imaging: Code(s): I34.1 - Nonrheumatic mitral (valve) prolapse Category: Medical (6) Severe mitral regurgitation: Comment: initially been seeing Dr Doherty but was then referred to [facility]. Code(s): I34.0 - Nonrheumatic mitral (valve) insufficiency Category: Medical Plan Chief Complaint The patient reports persistent fatigue and gastrointestinal symptoms including stomach cramps and blood in stools. History The patient is a 49-year-old male presenting with fatigue and gastrointestinal symptoms. Fatigue: - The patient has been experiencing persistent fatigue, attributed to a drop in hemoglobin levels. - A past hemoglobin level of 7.5 in July improved to 10.7 in August without a blood transfusion. - The patient took iron supplements and adjusted diet to improve hemoglobin levels. - Feels fatigued with the current hemoglobin level of 9.8. Gastrointestinal Symptoms: - Reports recent stomach cramps and episodes of blood in stools. - Has been taking iron supplements but stopped for a few days due to constipation concerns. - History of hemorrhoids, which may be exacerbated by constipation associated with iron supplements. - Bowel movements are typically frequent (6-8 times a day) and sometimes urgent, with occasional loose stools and no solid formation. - Denies constipation, but reports an urge to defecate without result at times. - Has not identified dietary triggers despite food diary tracking. Medical History: - Persistent fatigue related to fluctuating hemoglobin levels. - History of hemorrhoids. - Chronic symptoms consistent with Irritable Bowel Syndrome (IBS). Surgical History: - Planned mitral valve replacement surgery on January 29 due to mitral valve prolapse with severe regurgitation. Medications: - Iron supplements for managing anemia and improving hemoglobin levels. Social History: - The patient monitors dietary intake, attempting to include iron-rich foods such as meat and beets. - Adjusted diet and supplemented with iron to improve hemoglobin levels but with less focus recently. Problem List - Anemia - Gastrointestinal Bleeding likely secondary to hemorrhoids - Irritable Bowel Syndrome (IBS) - Mitral Valve Prolapse with Severe Mitral Regurgitation Diagnostic results Labs: - Hemoglobin levels ranged from 7.5 to 10.7 to 9.8 over a few months. Tests and Diagnostics: - Gastroenterology work-up by Dr. Diaz, including capsule endoscopy. [place] of Care - Patient seen by Dr. Diaz, [employer] Agent. - Planned hematology consultation for further assessment and management of anemia. Medication Management - Iron supplements previously reported to cause constipation. - Potential past issues with adherence due to constipation concerns. Medical Decision Making The patient presents with ongoing fatigue and gastrointestinal symptoms complicated by anemia and a need for upcoming mitral valve replacement surgery. No acute causes for gastrointestinal bleeding were identified by Dr. Diaz, indicating hemorrhoids as the probable source of bleeding. Anemia is chronic and partially managed by the patient with dietary adjustments and iron supplements, though constipation remains a concern. Additionally, symptoms suggestive of Irritable Bowel Syndrome (IBS) are present. Possible interventions include hematology consultation to evaluate the necessity of blood transfusions to optimize the patient's hemoglobin status before surgery. The introduction of dicyclomine was considered to address abdominal cramps, potentially related to IBS. Emphasis was placed on the necessity of proceeding with mitral valve replacement surgery despite mild gastrointestinal symptoms. The need for further research into dietary influences on bowel patterns remains a secondary priority. Patient Instructions - Continue taking iron supplements as instructed, monitoring for side effects such as constipation. - Keep a detailed food diary to help identify any potential dietary triggers for GI symptoms. - Contact hematology for an urgent consultation regarding anemia management. - Take dicyclomine as prescribed to manage cramping. - Report any worsening of symptoms or new issues to healthcare providers. Orders: Referrals Hematology & Oncology Referral D64.9 - Anemia, unspecified Medications: New dicyclomine 20 mg PO TID PRN 30 tabs 0RF abdominal cramping
== END 2024-12-27 11:29 | disposition home or self-care (01) ==
LOC: HO.HMCC 08:44
PROVIDERS: PCP Internal Medicine; Visit Provider Internal Medicine
DX: K92.1 Melena (principal); D50.0 Iron deficiency anemia secondary to blood loss (chronic); I51.7 Cardiomegaly; I10 Essential (primary) hypertension; I34.1 Nonrheumatic mitral (valve) prolapse; I34.0 Nonrheumatic mitral (valve) insufficiency

== ENCOUNTER → 2025-01-03 14:08 | Outpatient (BNV) | payer BC, SELFPAY | PROVIDERS: Visit Provider Nurse Practitioner Family | DX: D50.9 Iron deficiency anemia, unspecified (principal) | CPT/HCPCS: 99204 ==

== ENCOUNTER 2025-01-17 13:53 | Outpatient (REF) | payer BC, SELFPAY ==
--- OUTSIDE RECORDS SUMMARY | 2024-08-09 10:00 | XMS_ITS ---
Author Organization [facility] Address [address] [place] [address] Care Team Providers Care Assistant Store Manager Name Role Phone Valentino HATCH, Faye Primary Care Provider Waqas Cash [phone] Encounters Encounter Location Date Provider Diagnosis [facility] Outpatient [address] [place], [place] [id number] 08/09/2024 Waqas Diaz Plan Of Treatment Next Appt Details Provider Name:Waqas Diaz , 03/05/2025 10:20:00 AM, [address], [address], [place], [address], Progress Notes * JOSE WINSLOWDOB: [birth year] (49 yo M)Acc No.[id number]:08/09/2024 COLON WITH MAC Patient: Codey MCGEE JOSE Baez Provider: Jimena Diaz MD :1975 A ge:49 Y S ex:Male Date:08/09/2024 Address:[id number] Pcp:Faye Avelar MD Subjective: * Chief Complaints: [...] 08/09/2024 Generated for Blanca lou/Ariel/Mally on: 0 01/17/2025 02:43 PM EDT
--- OUTSIDE RECORDS SUMMARY | 2024-08-23 10:30 | XMS_ITS ---
Author Organization [facility] Address [address] [place] [address] Care Team Providers Care Aquaculture Farm Manager Name Role Phone Valentino HATCH, [facility] Primary Care Provider Waqas Cash [phone] REASON FOR VISIT diarrhea,anemia, rectal bleeding ,peptic ulcer Encounters Encounter Location Date Provider Diagnosis [facility] [place] Out[place] [address] [place] [id number] 08/23/2024 Waqas Diaz Rectal bleed K62.5 ; [...] Name:Waqas Diaz , 03/05/2025 10:20:00 AM, [address], [address], [place], [address], Progress Notes * JSOE WINSLOW JDOB: [birth year] (49 yo M)Acc No.[id number]:08/23/2024 EGD and COL/MAC Patient: JOSE CHING Provider: Jimena Diaz MD :1975 A ge:49 Y S ex:Male Date:08/23/2024 Address:[address] [place] [address] [id number] Pcp:Faye Avelar MD Subjective: * Chief Complaints: [...] Procedure Codes: 4 5380 COLONOSCOPY AND BIOPSY, 14486 UPPER GI ENDOSCOPY, BIOPSY * * The named appointment provid er may or may not be the originator of this progress note, and it is not deemed complete until electronically signed by the appointment provider. Sign off status: Pending * Provider: Jimena Diaz MD Date: 08/23/2024 Generated for Blanca lou/Ariel/eTransmitting on: 0 01/17/2025 02:43 PM EDT
--- NOTE | ~2025-01-17 | XR_ITS ---
EXAMINATION: XR CHEST CLINICAL INFORMATION: J22 - Unspecified acute lower respiratory infection COMPARISON: July 31, 2020 TECHNIQUE: 2 views of the chest were obtained. FINDINGS: The heart size is borderline enlarged. Lungs are clear. Hilar and mediastinal structures are within normal limits. There is no pleural effusion. XR/XR chest 2V IMPRESSION: Borderline cardiomegaly. Electronically signed by: Jack Navarrete MD 01/17/2025 02:11 PM EDT
--- OUTSIDE RECORDS SUMMARY | 2025-01-17 14:43 | XMS_ITS | Encounter Summary ---
Author Organization [facility] Address [address] [facility] [address] [place] [address] Phone Care Team Providers Care Wrapper Hand Name Role Phone Faye Avelar MD Primary Care Provider [phone] Shagufta Bhakta MD, PhD Unavailable [phone] Encounter Details Date Type Department Care Team ([facility] st Contact Info) Description 04/24/2024 Telephone VIRTUAL DEPARTMENT [address] [place] [address] [phone] Natalie Acosta MD [address] [place] [id number] [email or web address] Social History Tobacco Use Types Packs/Day Years [...] Department Care Team (Latest Contact Info) Description 01/29/2025 Procedure Pass [facility] [address] [place] [address] 01/29/2025 7:30 AM EDT Hospital Encounter [facility] [address] [place] [address] Natalie Acosta MD [address] [address] [email or web address] 01/29/2025 7:30 AM EDT - 01/29/2025 2:11 PM EDT Surgery [facility] [address] [place] [address] Natalie Acosta MD [address] [place] [phone] [email or web address] ROBOTIC REPAIR MITRAL VALVE ( tissue ) Scheduled Procedures Name Priority Associated Diagnoses Date/Ti ks ROBOTIC REPAIR MITRAL VALVE Mitral valve prolapse 01/29/2025 7:30 AM EDT documented as of this encounter Visit Diagnoses Not on filedocumented in this encounter Care Teams Wrapper Hand Relationship Specialty Start Date End Date Faye Avelar MD [address] [facility] [place] [address] PCP - General Internal Medicine 09/19/23 Shagufta Bhakta MD, PhD [address] [place] [address] [address] [place] [address] [email or web address] Donor Services Coordinator Interventional Cardiology 10/11/23 documented as of this encounter Additional Source Comments The information contained in this document represents components of the legal health record. It is not the complete legal health record.[facility]
--- OUTSIDE RECORDS SUMMARY | 2025-01-17 14:43 | XMS_ITS | Encounter Summary ---
Author Organization [facility] Address [address] [facility] [address] [place] [address] Phone Care Team Providers Care Display Specialist Name Role Phone Faye Avelar MD Primary Care Provider Shagufta Bhakta MD, PhD Unavailable [phone] Encounter Details Date Type Department Care Team (Late st Contact Info) Description 10/13/2023 Procedure Pass [facility], [place] [address] [facility], 2nd Floor, [address] [place] [address] Social History Tobacco Use Types Packs/Day Years Used Date Smoking Tobacco: Former Cigarettes Q uit: 07/2023 Smokeless Tobacco: Never Alcohol Use Standard Drinks/Week Comments Yes 2 (1 standard drink = 0.6 oz pur e alcohol) Education Answer Date Recorded Are you interested in more education? Not on caenlo e 09/21/2023 Are you concerned about learning? [...] (Latest Contact Info) Description 01/29/2025 Procedure Pass [facility] PERIOPERATIVE DEPT [address] [place] [address] 01/29/2025 7:30 AM EDT Hospital Encounter [facility] PERIOPERATIVE DEPT [address] [place] [address] Natalie Acosta MD [address] [place] [address] [email or web address] 01/29/2025 7:30 AM EDT - 01/29/2025 2:11 PM EDT Surgery [facility] PERIOPERATIVE DEPT [address] [place] [address] Natalie Acosta MD [address] [address] [email or web address] ROBOTIC REPAIR MITRAL VALVE ( tissue ) Scheduled Procedures Name Priority Associated Diagnoses Date/Ti ct ROBOTIC REPAIR MITRAL VALVE Mitral valve prolapse 01/29/2025 7:30 AM EDT documented as of this encounter Visit Diagnoses Not on filedocumented in this encounter Care Teams Display Specialist Relationship Specialty Start Date End Date Faye Avelar MD [address] [facility] [place] [address] PCP - General Internal Medicine 09/19/23 Shagufta Bhakta MD, PhD [address] [place] [address] [address] [place] [address] [email or web address] Information Technology Audit Manager Interventional Cardiology 10/11/23 documented as of this encounter Additional Source Comments The information contained in this document represents components of the legal health record. It is not the complete legal health record.[facility]
--- OUTSIDE RECORDS SUMMARY | 2025-01-17 14:43 | XMS_ITS | Encounter Summary ---
Author Organization [facility] Address [address] [facility] [address] [place] [address] Phone Care Team Providers Care Charging Crane Operator Name Role Phone Faye Avelar MD Primary Care Provider Shagufta Bhakta MD, PhD Unavailable [phone] Encounter Details Date Type Department Care Team ([facility] st Contact Info) Description 03/27/2024 Telephone VIRTUAL DEPARTMENT [address] [place] [phone] Natalie Acosta MD [address] [place] [phone] [email or web address] Social History Tobacco Use Types Packs/Day [...] (Latest Contact Info) Description 01/29/2025 Procedure Pass [facility] PERIOPERATIVE DEPT [address] [place] [address] 01/29/2025 7:30 AM EDT Hospital Encounter [facility] PERIOPERATIVE DEPT [address] [place] [address] Natalie Acosta MD [address] [address] [email or web address] 01/29/2025 7:30 AM EDT - 01/29/2025 2:11 PM EDT Surgery [facility] PERIOPERATIVE DEPT [address] [place] [address] Natalie Acosta MD [address] [place] [phone] [email or web address] ROBOTIC REPAIR MITRAL VALVE ( tissue ) Scheduled Procedures Name Priority Associated Diagnoses Date/Ti or ROBOTIC REPAIR MITRAL VALVE Mitral valve prolapse 01/29/2025 7:30 AM EDT documented as of this encounter Visit Diagnoses Not on filedocumented in this encounter Care Teams Charging Crane Operator Relationship Specialty Start Date End Date Faye Avelar MD [address] [place] [address] PCP - General Internal Medicine 09/19/23 Shagufta Bhakta MD, PhD [address] [place] [address] [address] [place] [address] [email or web address] Rotary Shear Worker Helper Interventional Cardiology 10/11/23 documented as of this encounter Additional Source Comments The information contained in this document represents components of the legal health record. It is not the complete legal health record.[facility]
--- OUTSIDE RECORDS SUMMARY | 2025-01-17 14:43 | XMS_ITS | Clinical Summary ---
Author Organization [facility] Address [address] [place] [phone] Phone Care Team Providers Care Cover Assembler Name Role Phone Faye Avelar MD Primary Care Provider [phone] Shagufta Bhakta MD, PhD Unavailable [phone] Allergies No known active allergies Medications valsartan (DIOVAN) 40 MG tablet Take 40 mg by mouth daily. Active LOMOTIL 2.5-0.025 mg per tablet Take 1 tablet by mouth 4 (four) times a day as needed. 12/20/2023 Active folic acid (FOLVITE) 1 MG tablet Take 1 tablet by mouth every morning. 12/05/2023 Active cholecalciferol (VITAMIN D3) 2,000 unit tablet Take 1,000 Units by mouth daily. Active cyanocobalamin, vitamin B-12, 250 mcg Lozg 2 lozenges Orally Once a day for 30 day(s) Active omeprazole (PRILOSEC) 40 MG capsule Take 1 capsule by mouth daily. 01/18/2024 Active atenolol (TENORMIN) 25 MG tablet Take 1 tablet (25 mg total) by mouth daily. 90 tablet 3 02/06/2024 Active Active Problems Problem Noted Date Diagnosed Date Chronic gastric ulcer 08/27/2024 Anemia 08/27/2024 Rectal bleeding 06/29/2024 Hemorrhage of rectum and anus 06/29/2024 Helicobacter pylori (H. pylo ri) as the cause of diseases classified elsewhere 06/29/2024 Gastroesophageal reflux disease with esophagitis 06/29/2024 Chronic diarrhea 01/05/2024 Abnormal weight loss 01/05/2024 Nonrheumatic mitral valve regurgitation 09/22/19 Overview (10/10/2023): 10/13 TTE: EF 65%, Severe MR. posterior mitral valve prolapse, affecting the P2 segment. Flail posterior mitral valve leaflet with associated chordal rupture. There is thickening of both mitral leaflets. Severe, MR with anteromedially eccentrically directed jet. Assessment & Plan (09/22/2023 11:24 AM EDT): In 08/13 during annual visit, his PCP heard murmur for the first time. Of note, no murmur was appreciated at the prior visit around 01/11. Per patient echo at [facility] showed severe MR. Of note, he was born with murmur. He plays tennis for 2-3 hours per week and pickle ball for 1 hour per week. P: echo, dental consult Encounters Date Type Department Care Team Description 11/29/2024 Telephone VIRTUAL DEPARTMENT [address] [place] [address] Natalie Acosta MD 11/28/2024 Documentation [facility] [address] [facility], [address] [place] [address] Alaina Brizuela FNP 11/20/2024 Orders Only [facility] [address] [facility], [address] [place] [address] Alaina Brizuela FNP Preop cardiovascular exam (Primary Dx) 11/16/2024 Orders Only [facility] [address] [facility], [address] [place] [address] Med Kaye MD 11/15/2024 Orders Only [facility] [address] [facility], [address] [place] [address] Med Kaye MD 11/13/2024 7:30 AM EDT - 11/13/2024 11:59 PM EDT Hospital Encounter [facility] [place] [address] [place] [address] Alaina Brizuela FNP Discharge Disposition: Home or Self Care 09/11/2024 Procedure Pass [facility] [address] [place] [address] from Last 3 Months Family History Medical History Relation Comments Coronary artery disease Maternal Grandmother Relation Status Comments Maternal Grandmother Social History Tobacco Use Types Packs/Day Years Used Date Smoking Tobacco: Every Day Cigarettes Smokeless Tobacco: Never Tobacco Cessation:Ready to Q uit: Not Asked; Counseling Given: Not Answered Comments:3-4 cigarettes/day Alcohol Use Standard Drinks/Week Comments [...] Orientation Straight 09/19/2023 2: 01 PM EDT Last Filed Vital Signs Vital Sign Reading Time Taken Comments Blood Pressure 119/77 01/26/2024 11:51 AM EDT Pulse 59 01/26/2024 11:51 AM EDT Temperature - - Respiratory Rate 16 01/26/2024 11:51 AM EDT Oxygen Saturation 98% 01/26/2024 11:51 AM EDT Inhaled Oxygen Concentration - - Weight 74.8 kg (165 lb) 01/26/2024 11:51 AM EDT Height 182.9 cm (6') 01/26/2024 11:51 AM EDT Body Mass Index 22.38 01/26/2024 11:51 AM EDT Plan of Treatment Upcoming Encounters Date Type Department Care Team (Latest Contact Info) Description 01/29/2025 Procedure Pass [facility] [address] [place] [id number] 01/29/2025 7:30 AM EDT Hospital Encounter [facility] [address] [place] [address] Natalie Acosta MD [address] [place] [address] [email or web address] 01/29/2025 7:30 AM EDT - 01/29/2025 2:11 PM EDT Surgery [facility] [address] [place] [address] Natalie Acosta MD [address] [address] [email or web address] ROBOTIC REPAIR MITRAL VALVE ( tissue ) Scheduled Procedures Name Priority Associated Diagnoses Date/Ti in ROBOTIC REPAIR MITRAL VALVE Mitral valve prolapse 01/29/2025 7:30 AM EDT Health Maintenance Due Date Last Done Comments Adult Td,Tdap Booster 1974 CREATININE LEVEL 1974 LIPID PANEL 1974 POTASSIUM LEVEL 1974 DEPRESSION SCREENING 1986 SMOKING Hx and SMOKELESS TOB ACCO SCREENING 1987 HEPATITIS C SCREENING 02/16/1992 HIV ONE-TIME SCREENING (18-6 5 YEARS) 02/16/1992 PNEUMOCOCCAL VACCINES (50+ y ears) (1 of 2 - PCV) 1993 COLOGUARD 2019 COLONOSCOPY 2019 COLORECTAL CANCER SCREENING 2019 FIT TEST 2019 FOBT 2019 SIGMOIDOSCOPY 2019 VIRTUAL COLONOSCOPY 2019 COVID-19 VACCINE ( - 2023-2 5 season) 2024 ZOSTER VACCINES (1 of 2) 02/16/2024 INFLUENZA VACCINE (#1) 2024 HEPATITIS A VACCINES Aged Out No long er eligible based on patient's age to complete this topic HIB VACCINES Aged Out No longer eligi ble based on patient's age to complete this topic MENINGOCOCCAL VACCINES (ACWY) Aged Out No longer eligible based on patient's age to complete this topic MENINGOCOCCAL VACCINES (B) Aged Out N o longer eligible based on patient's age to complete this topic Medical Devices Not on file Procedures Procedure Name Priority Date/Time Associated Diagnosis Comments OUTSIDE PROCEDURE Routine 11/16/2024 10: 17 AM EDT OUTSIDE LAB Routine 11/15/2024 4:30 PM EDT TTE COMPREHENSIVE Routine 11/13/2024 9:1 8 AM EDT Cardiac murmur, unspecified from Last 3 Months Results * Outside Procedure (11/16/2024 10:17 AM EDT) us Historical Provider MD PROCEDURE/MINOR SURGICAL PERFORMABLES Final Result * Outside Lab (11/15/2024 4:30 PM EDT) Historical Provider MD LAB BLOOD ORDERABLES Jeanine l Result * TTE COMPREHENSIVE (11/13/2024 9:18 AM EDT) Systolic BP 125 mmHg Diastolic BP 71 mmHg Left Ventricle Internal Diameter End Diastole 60 42 - 58 mm Interventricular Septum Thickness 8 6 - 11 mm Aortic Sinus Diameter 31 <40 mm Height 183 cm Left Ventricle Internal Diameter End Systole 36 <40 mm Left Ventricular Posterior Wall Thickness 9 6 - 11 mm Ascending Aorta Diameter 27 <36 mm Weight 73.50 kg Raw LV EF% 64 % Left Atrium Dimension Anterior-Posterior 39 15 - 40 mm Body Surface Area 1.95 m2 Left Atrial Volume Index 53 16 - 34 mL/m2 Ejection Fraction 68 50 - 75 % Relative Wall Thickness 0.30 0.22 - 0.42 Left Ventricle indexed to BSA 102.9 g/m2 Left Ventricle Diastolic Volume 165 62 - 150 mL Left Ventricle Diastolic Volume Index 85 34 - 74 mL/m2 Left Ventricle Systolic Volume 53 21 - 61 mL Left Ventricle Systolic Volume Index 27 11 - 31 mL/m2 Right Ventricle Basal Diameter 41 25 - 41 mm Left Atrium Dimension Superior-Inferior 59 29 - 53 mm Left Atrial Volume 103 mL Left Atrial Volume Index by Height 56 mL/m Right Atrium Dimension Superior-Inferior 52 mm Right Atrium Index Superior-Inferior 27 19 - 30 mm/m2 Right Atrium Dimension Medial-Lateral 43 mm Right Atrium Dimension Medial-Lateral 22 13 - 25 mm/m2 Inferior Vena Cava Diameter 19 <21 mm Aortic Valve Sinus Index by BSA 16 mm/m2 Aorta Sinus Index by Height 1.69 cm/m Aorta Sinus CSA index by Height 4.12 cm2/m Ascending Aorta Index 14 mm/m2 Asc Aorta CSA Index by Height 3.13 cm2/m Ascending Aorta Index 14 mm Aortic Sinus Index 16 mm Ascending Aorta Diameter 14 mm Aortic Valve Sinus Index 1 16 20 - 32 mm AO ASC DIAM BSA INDEX 13.85 Right Atrium Dimension Medial-Lateral 22 mm/m2 Right Atrium Index Superior-Inferior 27 mm/m2 Mitral Valve EROA 0.58 cm2 Mitral Valve Aliasing Velocity 42.5 cm/s Mitral Valve PISA Radius 1.01 cm Mitral Valve Peak Velocity 468.0 cm/s Mitral Valve Regurgitation Time Volume Integral 110.6 cm Mitral Valve Regurgitant Volume PISA Equation 64 ml Anatomical Region Laterality Modality Heart Ultrasound Narrative 11/14/2024 9:24 AM EDT Dilated LV (LVEDD 60mm, LVESD 36mm) with normal systolic function (EF 68%) Posterior mitral valve prolapse with flail P2 segment, resulting in severe eccentric mitral regurgitation (EROA 0.58cm2, RVol 64mL/beat, PISA radius 1.0cm) Normal RV size and systolic function Mild aortic regurgitation Dilated left atrium Left Ventricle The left ventricle is dilated. The LV internal diameter is 60 mm at end diastole, and 36 mm at end systole. There is normal wall thickness. There is normal left ventricular systolic function. The LV ejection fraction is 68% (calculated via the single dimension method). The LV end-diastolic volume is 165 mL (normal: M 62-150 mL; F 46-106 mL). The LV end-diastolic volume index is 85 mL/m2 (normal: M 34-74 mL/m2; F 29-61 mL/m2). The LV end-systolic volume is 53 mL (normal: M 21-61 mL; F 14-42 mL). The LV end-systolic volume index is 27 mL/m2 (normal: M 11-31 mL/m2; F 8-24 mL/m2). There are no wall motion abnormalities. Right Ventricle The right ventricle is normal in size. There is normal right ventricular systolic function. Left Atrium The left atrium is dilated. The left atrial volume is 103 mL. The left atrial volume index by BSA is 53 mL/m2 (normal: 16-34 mL/m2). Right Atrium The right atrium is normal in size. The IVC is normal in size with normal inspiratory collapse. Mitral Valve There is posterior mitral valve prolapse. There is flail of the posterior mitral valve leaflet (P2). There is severe mitral regurgitation with an anteromedially eccentrically directed jet. There is systolic flow reversal in the pulmonary vein, consistent with severe mitral regurgitation. The mitral valve effective regurgitant orifice area is calculated at 0.58 cm2, by PISA method. The mitral valve proximal isovelocity surface area radius is 1.01 cm. The mitral regurgitant volume is calculated at 64 ml, by PISA method. Tricuspid Valve There is trace tricuspid regurgitation. RV systolic pressure could not be estimated due to insufficient TR Doppler envelope. Aortic Valve The aortic valve is tricuspid. There is no aortic stenosis. There is mild aortic regurgitation. Pulmonic Valve There is trace pulmonic regurgitation. Pericardium There is no pericardial effusion. General Findings The image quality was fair (3). Comparison Findings Compared to prior TTE (direct image comparison), the degree of mitral regurgitation remains severe. The degree of aortic regurgitation has increased (mild from trace). The LV and LA are now dilated. Alaina Brizuela [facility] CV ECHO ORDERABLES Final Res ult from Last 3 Months Insurance [facility] PPO BLUE [employer] OUT OF STATE PPO [facility] OUT OF STATE PPO BLUE [employer] OUT OF STATE PPO BLUE [employer] OUT OF STATE PPO Care Teams Cover Assembler Relationship Specialty Start Date End Date Faye Avelar MD [address] [place] [address] PCP - General Internal Medicine 09/19/23 Shagufta Bhakta MD, PhD [address] [place] [address] [address] [place] [address] [email or web address] Professor Interventional Cardiology 10/11/23 Additional Source Comments The information contained in this document represents components of the legal health record. It is not the complete legal health record.[facility]
--- OUTSIDE RECORDS SUMMARY | 2025-01-17 14:44 | XMS_ITS | Encounter Summary ---
Author Organization [facility] Address [address] [place] [address] [place] [address] Phone Care Team Providers Care Business Intelligence Etl Developer Name Role Phone Faye Avelar MD Primary Care Provider [phone] Shagufta Bhakta MD, PhD Unavailable [phone] Encounter Details Date Type Department Care Team (Late st Contact Info) Description 09/22/2023 Procedure Pass [facility] Cardiac US [address] [place] [address] Social History Tobacco Use Types Packs/Day Years [...] (Latest Contact Info) Description 01/29/2025 Procedure Pass [facility] [address] [place] [address] 01/29/2025 7:30 AM EDT Hospital Encounter [facility] [address] [place] [address] Natalie Acosta MD [address] [facility] [address] [place] [address] [email or web address] 01/29/2025 7:30 AM EDT - 01/29/2025 2:11 PM EDT Surgery [facility] [address] [place] [address] Natalie Acosta MD [address] [address] [email or web address] ROBOTIC REPAIR MITRAL VALVE ( tissue ) Scheduled Procedures Name Priority Associated Diagnoses Date/Ti pa ROBOTIC REPAIR MITRAL VALVE Mitral valve prolapse 01/29/2025 7:30 AM EDT documented as of this encounter Visit Diagnoses Not on filedocumented in this encounter Care Teams Business Intelligence Etl Developer Relationship Specialty Start Date End Date Faye Avelar MD [address] [place] [address] PCP - General Internal Medicine 09/19/23 Shagufta Bhakta MD, PhD [address] [place] [address] [address] [place] [address] [email or web address] Diesel Fitter Mechanic Interventional Cardiology 10/11/23 documented as of this encounter Additional Source Comments The information contained in this document represents components of the legal health record. It is not the complete legal health record.[facility]
--- OUTSIDE RECORDS SUMMARY | 2025-01-17 14:44 | XMS_ITS | Patient Health Record ---
Author Organization [facility] Address [address] [place] [address] Care Team Providers Care Forge Shop Machine Repairer Name Role Phone Valentino HATCH, [facility] Primary Care Provider Waqas Cash [phone] Allergies No Known Allergies Results Component Value Reference Range Notes Gastrin Reviewed date:01/24/2024 05:08:10 PM Interpretation: Performing Lab:[facility], [address] [place] [phone] Notes/Report: Gastrin 30 <=100 pg/mL Reference range applies to fasting specimens only. For additional information, please refer to https://Texert.Yowza/faq/HRP415 (This link is being provided for informational/ educational purposes only.) THIS TEST WAS PERFORMED AT: [facility]/[address] [address] HAILEE ARTHUR MD,PHD Pathology Reviewed date:01/29/2024 05:59:50 PM Interpretation: Performing Lab:[facility], [address] [place] [phone] Notes/Report: Leukocytes Stool Qualitative Reviewed date:01/27/2024 06:23:49 PM Interpretation: Performing Lab:[facility], [address] [place] [phone] Notes/Report: Leukocytes Stool Qualitative NEGATIVE NEGATIVE Cancelled Serology Reviewed date:01/27/2024 06:22:58 PM Interpretation: Performing Lab:[facility], [address] [place] [phone] Notes/Report: Cancelled Serology SEE NOTE THE FOLLOWING TESTS WERE CANCELLED: CDIFF REASON: STOOL IS FORMED, TEST NOT INDICATED Giardia Ag Stool EIA Reviewed date:02/05/2024 05:19:04 PM Interpretation: Performing Lab:[facility], [address] [place] [phone] Notes/Report: Giardia Ag Stool EIA SEE NOTE GIARDIA AG, EIA, STOOL Micro Number: [id number] Test Status: Final Specimen Source: Stool Specimen Quality: Adequate Giardia Result 1: Not Detected Reference Range: Not Detected NOTE: Due to intermittent shedding, one negative sample does not necessarily rule out the presence of a parasitic infection. THIS TEST WAS PERFORMED AT: [facility] [address] [address] KERRY GRAHAM MD Pancreatic Elastase-1 Reviewed date:02/10/2024 04:51:58 PM Interpretation: Performing Lab:[address] [address] Notes/Report: Pancreatic Elastase-1 >500 Adult and Pediatric Reference Ranges for Pancreatic Elastase-1: Normal: >200 mcg/g Moderate Pancreatic Insufficiency: 100-200 mcg/g Severe Pancreatic Insufficiency: <100 mcg/g Elastase-1 (E-1) assay results are expressed in mcg/g, which represent mcg E1/g feces. It is not necessary to interrupt enzyme substitution therapy. THIS TEST WAS PERFORMED AT: [facility] [address] [place] [address] BENNIE BEDOLLA MD,PHD,XIOMARA Fecal Fat Qualitative Reviewed date:02/10/2024 04:52:07 PM Interpretation: Performing Lab:[facility], [address] [place] [phone] Notes/Report: Fecal Fat Qualitative Normal Normal THIS TEST WAS PERFORMED AT: [facility] [address] [place] [address] HAILEE ARTHUR MD,PHD Chymotrypsin, Stool Reviewed date:02/10/2024 04:52:23 PM Interpretation: Performing Lab:[address] [address] Notes/Report: Chymotrypsin, Stool 18.0 2.3-51.4 U/g This test was developed and its analytical performance characteristics have been determined by [employer]. It has not been cleared or approved by FDA. This assay has been validated pursuant to the CLIA regulations and is used for clinical purposes. THIS TEST WAS PERFORMED AT: [facility] [address] [place] [address] BENNIE BEDOLLA MD,PHD,XIOMARA Calprotectin, Fecal Reviewed date:02/10/2024 04:52:39 PM Interpretation: Performing Lab:[address] [address] Notes/Report: Calprotectin, Fecal 276 Reference Range: <50 [...] borderline values. THIS TEST WAS PERFORMED AT: [facility] [address] [place] [address] BENNIE BEDOLLA MD,PHD,XIOMARA Ova and Parasite Reviewed date:02/06/2024 11:13:36 PM Interpretation: Performing Lab:[address] [address] Notes/Report: Ova and Parasite SEE NOTE OVA AND PARASITES, CONC AND PERM SMEAR Micro Number: [id number] Test Status: Final Specimen Source: Stool Specimen Quality: Adequate CONCENTRATION 1: No ova or parasites seen TRICHROME 1: No ova or parasites seen Routine Ova and Parasite exam may not detect some parasites that occasionally cause diarrheal illness. Cryptosporidium Antigen and/or Cyclospora Isospora Exam may be ordered to detect these parasites. For additional information, please refer to https://education.Yowza/faq/NMC690 (This link is being provided for informational/ educational purposes only.) THIS TEST WAS PERFORMED AT: [facility] [address] [place] [address] JOANIE HOGUE MD GI PANEL Reviewed date:01/27/2024 06:23:33 PM Interpretation: Performing Lab:[facility], [address] [place] [phone] Notes/Report: Campylobacter Not Detected Not Detect. Plesiomonas [...] is performed by Multiplexed PCR, utilizing the [employer] Array. Complete Blood Count Auto Di ff (Not yet reviewed by provider) Interpretation: Performing Lab:[facility], [address] [place] [phone] Notes/Report: White Blood Count 5.5 4.8-10.8 X10*3/uL [...] te Reviewed date:07/13/2024 07:08:00 PM Interpretation: Performing Lab:[address] [address] Notes/Report: Erythrocyte Sedimentation Rate 27 0-15 MM/HR Patients with polycythemia and many hemoglobin abnormalities may have depressed sed rates whereas patients with anemia may have elevated sed rates. Liver Panel Reviewed date:07/13/2024 07:07:38 PM Interpretation: Performing Lab:[address] [place] [address] Notes/Report: Bilirubin Total 0.4 0.0-1.0 mg/dL Bilirubin Direct 0.1 0.0-0.5 mg/dL Aspartate Amino Transferase 23 5-37 U/L Alanine Aminotransferase 17 0-40 U/L Total Protein 7.1 6.5-8.0 g/dL Albumin Level 3.8 3.5-5.0 g/dL Alkaline Phosphatase 119 39-117 U/L Basic Metabolic Panel Reviewed date:07/13/2024 07:07:22 PM Interpretation: Performing Lab:[address] [address] Notes/Report: Sodium 139 135-145 mmol/L Potassium 4.1 [...] Protein Reviewed date:07/13/2024 07:07:50 PM Interpretation: Performing Lab:[address] [address] Notes/Report: C Reactive Protein 0.24 < or = 0.50 mg/dL Folate Reviewed date:07/20/2024 05:23:21 PM Interpretation: Performing Lab:[address] [address] Notes/Report: Folate 12.6 > or = 4.0 ng/mL Reference Values: > or = 4.0 ng/mL < 4.0 ng/mL suggests folate deficiency Methotrexate, aminopterin and folinic acid (leucovorin) are chemotherapeutic agents whose molecular structures are similar to folate; therefore, the Track Repairer folate assay cannot be used for patients using these drugs. Leukocytes Stool Qualitative Reviewed date:07/24/2024 12:40:57 PM Interpretation: Performing Lab:[address] [place] [address] Notes/Report: Leukocytes Stool Qualitative NEGATIVE NEGATIVE Calprotectin, Fecal Reviewed date:07/29/2024 04:12:47 PM Interpretation: Performing Lab:[facility], [address] [place] [phone] Notes/Report: Calprotectin, Fecal 390 Reference Range: <50 [...] borderline values. THIS TEST WAS PERFORMED AT: [facility] [address] [place] [address] BENNIE BEDOLLA MD,PHD,XIOMARA CDiff Gene PCR Reviewed date:07/29/2024 04:12:58 PM Interpretation: Performing Lab:[address] [address] Notes/Report: CDiff Gene PCR NEGATIVE Negative If C. difficile strongly suspected despite one negative test, a second test may be sent vs. empiric treatment for C. difficile infection. GI PANEL Reviewed date:07/24/2024 12:40:48 PM Interpretation: Performing Lab:[address] [address] Notes/Report: Campylobacter Not Detected Not Detect. Plesiomonas [...] is performed by Multiplexed PCR, utilizing the [employer] Array. Complete Blood Count Auto Di ff Reviewed date:08/19/2024 09:34:23 PM Interpretation: Performing Lab:[facility], [address] [place] [phone] Notes/Report: White Blood Count 5.4 4.8-10.8 X10*3/uL [...] 0.00-0.03 X10*3/uL Lymphocytes Absolute Auto 1.1 1.2-4.9 X10*3/u L Monocytes Absolute Auto 0.6 0.1-1.2 X10*3/uL Eosinophils Absolute Auto 0.2 0.0-0.4 X10*3/u L Basophils Absolute Auto 0.1 0.0-0.2 X10*3/uL NRBC Abs Auto 0.000 0.0-0.012 X10*3/uL Erythrocyte Sedimentation Ra te Reviewed date:08/10/2024 06:09:31 PM Interpretation: Performing Lab:[address] [address] Notes/Report: Erythrocyte Sedimentation Rate 38 0-15 MM/HR Patients with polycythemia and many hemoglobin abnormalities may have depressed sed rates whereas patients with anemia may have elevated sed rates. Liver Panel Reviewed date:08/10/2024 06:09:21 PM Interpretation: Performing Lab:[address] [address] Notes/Report: Bilirubin Total 0.3 0.0-1.0 mg/dL Bilirubin Direct 0.1 0.0-0.5 mg/dL Aspartate Amino Transferase 19 5-37 U/L Alanine Aminotransferase 17 0-40 U/L Total Protein 7.3 6.5-8.0 g/dL Albumin Level 3.8 3.5-5.0 g/dL Alkaline Phosphatase 105 39-117 U/L Basic Metabolic Panel Reviewed date:08/10/2024 06:09:03 PM Interpretation: Performing Lab:[address] [address] Notes/Report: Sodium 139 135-145 mmol/L Potassium 4.1 [...] PROFILE Reviewed date:08/10/2024 06:08:36 PM Interpretation: Performing Lab:[facility], [address] [place] [address] Notes/Report: Iron 12 45-160 mcg/dL Total Iron Binding Capacity 467 228-428 mcg/dL Percent Iron Saturation 3 15-50 % Unsaturated Iron Binding 455 Ferritin Reviewed date:08/10/2024 06:08:18 PM Interpretation: Performing Lab:[facility], [address] [place] [phone] Notes/Report: Ferritin 7 20-250 ng/mL C Reactive Protein Reviewed date:08/10/2024 06:08:07 PM Interpretation: Performing Lab:[facility], [address] [place] [phone] Notes/Report: C Reactive Protein 0.28 < or = 0.50 mg/dL Vitamin B12 Reviewed date:08/10/2024 04:20:38 PM Interpretation: Performing Lab:[facility], [address] [place] [phone] Notes/Report: Vitamin B12 802 200-900 pg/mL NORMAL 200-900 PG/ML INDETERMINATE 160-199 PG/ML DEFICIENT < 160 PG/ML Pathology Reviewed date:08/30/2024 06:32:21 PM Interpretation: Performing Lab:[facility], [address] [place] [phone] Notes/Report: Complete Blood Count Auto Di ff (Not yet reviewed by provider) Interpretation: Performing Lab:[address] [address] Notes/Report: White Blood Count 6.5 4.8-10.8 X10*3/uL [...] 0.0-0.2 /100WBC Neutrophils Absolute Auto 3.7 2.0-8.3 x10*3/u L Imm Gran Abs Auto 0.02 0.00-0.03 X10*3/uL Lymphocytes Absolute Auto 1.7 1.2-4.9 X10*3/u L Monocytes Absolute Auto 0.7 0.1-1.2 X10*3/uL Eosinophils Absolute Auto 0.4 0.0-0.4 X10*3/u L Basophils Absolute Auto 0.1 0.0-0.2 X10*3/uL NRBC Abs Auto 0.000 0.0-0.012 X10*3/uL IRON PROFILE Reviewed date:09/24/2024 11:13:18 PM Interpretation: Performing Lab:[address] [address] Notes/Report: Iron 36 45-160 mcg/dL Total Iron Binding Capacity 424 228-428 mcg/dL Percent Iron Saturation 8 15-50 % Unsaturated Iron Binding 388 Ferritin Reviewed date:09/22/2024 10:10:47 PM Interpretation: Performing Lab:[address] [address] Notes/Report: Ferritin 28 20-250 ng/mL Reason For [...] W/U Status Risk Notes Problem Rectal bleeding (51839024) Rectal bleeding (K62.5) Active confirmed Problem History of adenomatous polyp of colon (478851990) History of adenomatous polyp of colon (Z86.010) Active confirmed Problem Constipation (89388988) Constipation (K59.00) Active confirmed Problem Diarrhea (96373834) Diarrhea (R19.7) Active con firmed Problem Imaging of gastrointestinal tract abnormal (330834106) Abnormal findings on diagnostic imaging of other parts of digestive tract (R93.3) Active confirmed Problem Helicobacter pylori (28386412) Helicobacter pylori [H. pylori] as the cause of diseases classified elsewhere (B96.81) Active confirmed Problem Diverticular disease of colon (774405755) Diverticulosis of large intestine without perforation or abscess without bleeding (K57.30) Active confirmed Problem Abnormal weight loss (540328249) Abnormal weight loss (R63.4) Active confirmed Problem Duodenitis (38417809) Duodenitis (K29.80) Active confirmed Problem Hemorrhage of rectum and anus (724030059) Rectal bleed (K62.5) Active confirmed Problem Anemia (997881108) Anemia (D64.9) Active confir med Problem Iron deficiency anemia due to chronic blood loss (444028386) 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) Active confirmed Problem Peptic ulcer disease (70522980) Peptic ulcer disease (K27.9) Active confirmed Problem Chronic gastric ulcer (15025580) Chronic gastric ulcer (K25.7) Active confirmed Problem Chronic diarrhea (655433179) Chronic diarrhea (K52.9) Active confirmed Problem Gastric ulcer (639163969) Gastric ulcer (K25.9) Active confirmed Problem Duodenal ulcer disease (61923177) Duodenal ulcer disease (K26.9) Active confirmed Problem Weight decreased (497220988) Loss of weight (R63.4) Active confirmed Problem Gastroesophageal reflux disease with esophagitis (disorder) (733217678) Gastroesophageal reflux disease with esophagitis without hemorrhage (K21.00) Active confirmed Vital Signs Blood pressure diastolic 111 mm Hg 08/30/2024 Height 71 in 08/30/2024 Blood pressure systolic 111 mm Hg 08/30/2024 Weight 174 lbs 08/30/2024 BMI 24.27 kg/m2 08/30/2024 Procedures Procedure Date Ordered Date Performed Result Body Sit e UPPER GI ENDOSCOPY 07/24/2024 N/A COLONOSCOPY 07/24/2024 N/A Encounters Encounter Location Date Provider Diagnosis [facility] Outpatient [address] [place] [id number] 01/18/2024 Waqas Diaz Gastroesophageal ref lux disease with esophagitis without hemorrhage K21.00 ; Duodenitis K29.80 ; Duodenal ulcer disease K26.9 ; Gastric ulcer K25.9 ; Hiatal hernia K44.9 ; Abn findings-GI tract R93.3 and Weight loss R63.4 [facility] Outpatient [address] [place] [id number] 08/23/2024 Waqas Diaz Rectal bleed K62.5 ; 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 pylori] as the cause of diseases classified elsewhere B96.81 and History of adenomatous polyp of colon Z86.010 [facility] [address] [place] [phone] 08/30/2024 Waqas Emily Rectal bleed K62.5 ; Iron deficiency anemia due to chronic blood loss D50.0 ; Abnormal weight loss R63.4 ; Gastric ulcer K25.9 and Constipation K59.00 [facility] [address] [place] [phone] 01/18/2024 Waqas Diaz [facility] [address] [place] [phone] 01/19/2024 Waqas Diaz [facility] [address] [place] [phone] 01/25/2024 Waqas Diaz [facility] [address] [place] [phone] 02/03/2024 Waqas Diaz [facility] [address] [place] [phone] 06/21/2024 Waqas Diaz Diarrhea R19.7 ; Rec keeley bleeding K62.5 and Folate deficiency E53.8 [facility] [address] [place] [phone] 07/04/2024 Waqas Diaz [facility] [address] [place] [phone] 07/24/2024 Waqas Diaz Diarrhea R19.7 ; Rec keeley bleeding K62.5 ; Anemia D64.9 and Peptic ulcer disease K27.9 [facility] [address] [place] [phone] 08/21/2024 Waqas Diaz [facility] [address] [place] [phone] 08/30/2024 Waqas Diaz [facility] [address] [place] [phone] 09/02/2024 Waqas Diaz [facility] [address] [place] [phone] 11/12/2024 Waqas Diaz Assessments Encounter Date Diagnosis (ICD Code) Assessment Notes Treatment Notes Treatment Clinical Notes Section Notes 01/18/2024 Duodenitis (ICD-10 - K29.80) 01/18/2024 Gastroesophageal reflux disease with esophagitis without hemorrhage (ICD-10 - K21.00) 08/23/2024 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 06/21/2024 Rectal bleeding (ICD-10 - K62.5) 06/21/2024 Diarrhea (ICD-10 - R19.7) 07/24/2024 Rectal bleeding (ICD-10 - K62.5) 07/24/2024 Diarrhea (ICD-10 - R19.7) 01/18/2024 Duodenal ulcer disease (ICD-10 - K26.9) 08/23/2024 Diverticulosis of large intestine without perforation or abscess without bleeding (ICD-10 - K57.30) 03/01/2024 Helicobacter pylori [H. pylori] as the [...] his progress. 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 Overall, Heath currently appears quite [...] 07/24/2024 Peptic ulcer disease (ICD-10 - K27.9) 01/18/2024 Hiatal hernia (ICD-10 - K44.9) 08/23/2024 [...] progress. 06/21/2024 Folate deficiency (ICD-10 - E53.8) 01/18/2024 Abn findings-GI tract (ICD-10 - R93.3) 08/23/2024 Gastro-esophageal reflux disease without esophagitis (ICD-10 - K21.9) 01/18/2024 Weight loss (ICD-10 - R63.4) Plan Of Treatment Pending Test Test Name Order Date UPPER GI ENDOSCOPY 07/24/2024 COLONOSCOPY 07/24/2024 CHEM 7 PROFILE 06/21/2024 CHEM 7 PROFILE 11/30/2023 CHEM 7 PROFILE 12/20/2023 CHEM 7 PROFILE 07/24/2024 LIVER PROFILE 06/21/2024 LIVER PROFILE 11/30/2023 IRON + IBC (FE) 08/30/2024 IRON + IBC (FE) 11/30/2023 CRP 06/21/2024 CRP 07/24/2024 CRP 11/30/2023 VITAMIN B12 AND FOLATE 11/30/2023 [...] Auto Diff Complete Blood Count Auto Diff 5 Ferritin 08/30/2024 Folate 06/21/2024 Trypsin 12/20/2023 H pylori Ag Stool 07/24/2024 Giardia Ag Stool EIA 12/20/2023 Pancreatic Elastase-1 12/20/2023 Fecal Fat Qualitative 12/20/2023 Calprotectin, Fecal 12/20/2023 Calprotectin, Fecal 07/24/2024 Calprotectin, Fecal 06/21/2024 Ova and Parasite 12/20/2023 GI PANEL 06/21/2024 GI PANEL 12/20/2023 Future Test Test Name Order Date COLONOSCOPY 11/30/2023 UPPER GI ENDOSCOPY 01/05/2024 Next Appt Details Provider Name:Waqas Jones Diaz , 03/05/2025 10:20:00 AM, [address] [facility], [address], [place], [address], Insurance Providers Payer Name Payer Address Payer Phone Subscriber Number Group Number Insured Name Patient Relationship to Insured Coverage Start Date Coverage End Date [facility] [address] [place] [address] [id number] JOSE WINSLOW Self - patient is the insured Medical (General) History Medical History History ICD Code Mitral valve insufficiency-- scheduled for surgery for a mitral valve repair at [facility] on 04/24/2024--has initially been seeing Dr. Doherty but was then referred to [facility] for his surgery HTN Denies NM,DM,CVA,Lung disease,renal dise ase Chronic diarrhea-colonoscopy as below--negative workup with multiple stool specimens to rule out infection and pancreatic insufficiency; workup for celiac disease was negative; gastrin level was normal Colonoscopy November of 2023-one tubular adenoma removed. No inflammatory bowel disease and biopsies were negative for microscopic colitis. Terminal ileum was not visualized Upper endoscopy December 24-duodenal and gastric ulcers, gastritis with H. pylori, small hiatal hernia with reflux and esophagitis but no Bianchi's esophagus. Started on omeprazole. Gastrin level was normal. Duodenal biopsies were negative for celiac disease. 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
--- OUTSIDE RECORDS SUMMARY | 2025-01-17 14:44 | XMS_ITS | Encounter Summary ---
Author Organization [facility] Address [address] [place] [address] [place] [phone] Phone Care Team Providers Care Digital Account Executive Name Role Phone Faye Avelar MD Primary Care Provider [phone] Shagufta Bhakta MD, PhD Unavailable [phone] Encounter Details Date Type Department Care Team (Late st Contact Info) Description 09/11/2024 Procedure Pass [facility] [address] [place] [address] Social History Tobacco Use Types Packs/Day Years [...] (Latest Contact Info) Description 01/29/2025 Procedure Pass [facility] [address] [place] [address] 01/29/2025 7:30 AM EDT Hospital Encounter [facility] [address] [place] [address] Natalie Acosta MD [address] [facility] [address] [place] [address] [email or web address] 01/29/2025 7:30 AM EDT - 01/29/2025 2:11 PM EDT Surgery [facility] [address] [place] [address] Natalie Acosta MD [address] [address] [email or web address] REPAIR MITRAL VALVE ( tissue ) Scheduled Procedures Name Priority Associated Diagnoses Date/Ti wy ROBOTIC REPAIR MITRAL VALVE Mitral valve prolapse 01/29/2025 7:30 AM EDT documented as of this encounter Visit Diagnoses Not on filedocumented in this encounter Care Teams Digital Account Executive Relationship Specialty Start Date End Date Faye Avelar MD [address] [place] [address] PCP - General Internal Medicine 09/19/23 Shagufta Bhakta MD, PhD [address] [place] [address] [address] [place] [address] [email or web address] Tobacco Checkout Clerk Interventional Cardiology 10/11/23 documented as of this encounter Additional Source Comments The information contained in this document represents components of the legal health record. It is not the complete legal health record.[facility]
--- OUTSIDE RECORDS SUMMARY | 2025-01-17 14:44 | XMS_ITS | Encounter Summary ---
Author Organization [facility] Address [address] [place] [address] [place] [address] Phone Care Team Providers Care Toy Assembler Name Role Phone Faye Avelar MD Primary Care Provider [phone] Shagufta Bhakta MD, PhD Unavailable [phone] Encounter Details Date Type Department Care Team (Late st Contact Info) Description 06/26/2024 Procedure Pass [facility] [place] [place] [place] [address] [place] [phone] Social History Tobacco Use Types Packs/Day Years [...] (Latest Contact Info) Description 01/29/2025 Procedure Pass [facility] [place] [facility] [place] [address] [place] [address] 01/29/2025 7:30 AM EDT Hospital Encounter [facility] [place] [facility] [place] [address] [place] [address] Natalie Acosta MD [address] [address] [email or web address] 01/29/2025 7:30 AM EDT - 01/29/2025 2:11 PM EDT Surgery [facility] [place] [facility] [address] [place] [address] Natalie Acosta MD [address] [address] [email or web address] ROBOTIC REPAIR MITRAL VALVE ( tissue ) Scheduled Procedures Name Priority Associated Diagnoses Date/Ti md ROBOTIC REPAIR MITRAL VALVE Mitral valve prolapse 01/29/2025 7:30 AM EDT documented as of this encounter Visit Diagnoses Not on filedocumented in this encounter Care Teams Toy Assembler Relationship Specialty Start Date End Date Faye Avelar MD [facility] [place] [address] PCP - General Internal Medicine 09/19/23 Shagufta Bhakta MD, PhD [address] [place] [address] [address] [place] [address] [email or web address] Film Processing Supervisor Interventional Cardiology 10/11/23 documented as of this encounter Additional Source Comments The information contained in this document represents components of the legal health record. It is not the complete legal health record.[facility]
--- OUTSIDE RECORDS SUMMARY | 2025-01-17 14:44 | XMS_ITS | Encounter Summary ---
Author Organization [facility] Address [address] [facility] [address] [place] [address] Phone Care Team Providers Care Kier Operator Name Role Phone Faye Avelar MD Primary Care Provider Shagufta Bhakta MD, PhD Unavailable [phone] Encounter Details Date Type Department Care Team ([facility] st Contact Info) Description 11/29/2024 Telephone VIRTUAL DEPARTMENT [address] [place] [phone] Natalie Acosta MD [address] [place] [address] [email or web address] Social History Tobacco Use Types Packs/Day Years [...] (Latest Contact Info) Description 01/29/2025 Procedure Pass [facility] [address] [place] [address] 01/29/2025 7:30 AM EDT Hospital Encounter [facility] [address] [place] [address] Natalie Acosta MD [address] [address] [email or web address] 01/29/2025 7:30 AM EDT - 01/29/2025 2:11 PM EDT Surgery [facility] PERIOPER[facility]IVE DEPT [address] [place] [address] Natalie Acosta MD [address] [place] [address] [email or web address] ROBOTIC REPAIR MITRAL VALVE ( tissue ) Scheduled Procedures Name Priority Associated Diagnoses Date/Ti la ROBOTIC REPAIR MITRAL VALVE Mitral valve prolapse 01/29/2025 7:30 AM EDT documented as of this encounter Visit Diagnoses Not on filedocumented in this encounter Care Teams Kier Operator Relationship Specialty Start Date End Date Faye Avelar MD [address] [facility] [address] PCP - General Internal Medicine 09/19/23 Shagufta Bhakta MD, PhD [address] [place] [address] [address] [place] [address] [email or web address] Head Correction Officer Interventional Cardiology 10/11/23 documented as of this encounter Additional Source Comments The information contained in this document represents components of the legal health record. It is not the complete legal health record.[facility]
--- OUTSIDE RECORDS SUMMARY | 2025-01-17 14:44 | XMS_ITS | Encounter Summary ---
Author Organization [facility] Address [address] [place] [address] [place] [address] Phone Care Team Providers Care Artifacts Conservator Name Role Phone Faye Avelar MD Primary Care Provider [phone] Shagufta Bhakta MD, PhD Unavailable [phone] Encounter Details Date Type Department Care Team (Late st Contact Info) Description 10/02/2024 Procedure Pass [facility] [address] [place] [phone] Social History Tobacco Use Types Packs/Day Years [...] (Latest Contact Info) Description 01/29/2025 Procedure Pass [facility] [address] [place] [address] 01/29/2025 7:30 AM EDT Hospital Encounter [facility] [address] [place] [address] Natalie Acosta MD [address] [address] [email or web address] 01/29/2025 7:30 AM EDT - 01/29/2025 2:11 PM EDT Surgery [facility] [address] [place] [address] Natalie Acosta MD [address] [address] [email or web address] ROBOTIC REPAIR MITRAL VALVE ( tissue ) Scheduled Procedures Name Priority Associated Diagnoses Date/Ti ia ROBOTIC REPAIR MITRAL VALVE Mitral valve prolapse 01/29/2025 7:30 AM EDT documented as of this encounter Visit Diagnoses Not on filedocumented in this encounter Care Teams Artifacts Conservator Relationship Specialty Start Date End Date Faye Avelar MD [facility] [place] [address] PCP - General Internal Medicine 09/19/23 Shagufta Bhakta MD, PhD [address] [place] [address] [address] [place] [address] [email or web address] Lead Dental Assistant Interventional Cardiology 10/11/23 documented as of this encounter Additional Source Comments The information contained in this document represents components of the legal health record. It is not the complete legal health record.[facility]
[2025-01-17 16:16] LABS: MANUAL DIFF FLAG NO
[2025-01-17 16:20] LABS: Hematocrit 32.9 % (42.0-52.0); Hemoglobin 9.6 g/dl (14.0-18.0); Imm Gran Abs Auto 0.04 X10*3/uL (0.00-0.03); Imm Gran Pct Auto 0.5 % (0.0-0.4); Lymphocytes Absolute Auto 1.5 X10*3/uL (1.2-4.9); Mean Corpuscular HGB Conc 29.2 g/dl (31.0-36.0); Mean Corpuscular Hemoglobin 22.7 pg (27.0-33.0); Mean Corpuscular Volume 78.0 fL (80.0-98.0); NRBC Abs Auto 0.020 X10*3/uL (0.0-0.012); NRBC Pct Auto 0.3 /100WBC (0.0-0.2); Platelet Count 305 X10*3/uL (160-400); Red Blood Count 4.22 X10*6/uL (4.60-5.80); White Blood Count 7.7 X10*3/uL (4.8-10.8)
[2025-01-17 16:45] LABS: Alanine Aminotransferase 26 U/L (0-40); Albumin Level 4.3 g/dL (3.5-5.0); Alkaline Phosphatase 130 U/L (39-117); Anion Gap 11 (12-20); Aspartate Amino Transferase 31 U/L (5-37); Blood Urea Nitrogen 13 mg/dL (9-16); Calcium 8.8 mg/dL (8.4-10.2); Carbon Dioxide 27 mmol/L (22-29); Chloride 102 mmol/L (96-108); Estimated Glomerular Filt Rate 48; Potassium 4.1 mmol/L (3.3-5.1); Sodium 136 mmol/L (135-145); Total Protein 7.5 g/dL (6.5-8.0)
== END 2025-01-17 13:54 | disposition home or self-care (01) ==
LOC: HO.HMGCX 13:53
PROVIDERS: PCP Internal Medicine; Visit Provider Internal Medicine
DX: J22 Unspecified acute lower respiratory infection (principal)
CPT/HCPCS: 36415; 71046; 80053; 85025

== ENCOUNTER → 2025-01-17 14:00 | Outpatient (BNV) | payer BC, SELFPAY | PROVIDERS: PCP Internal Medicine; Visit Provider Radiology Diagnostic Radiology | DX: I51.7 Cardiomegaly (principal) | CPT/HCPCS: 71046 ==

== ENCOUNTER 2025-02-07 09:45 | Outpatient (RCR) | payer BC, SELFPAY ==
[2025-01-28 13:51] VITALS: BP 113/63; PULSE 74; RESP 16; TEMP 36.1; O2SAT 99
[2025-01-31 12:12] VITALS: BP 117/61; PULSE 61; RESP 18; TEMP 36.6
[2025-02-04 13:12] VITALS: BP 110/61; PULSE 80; RESP 16; TEMP 36.6; O2SAT 100
[2025-02-07 10:16] VITALS: BP 110/54; PULSE 62; RESP 16; TEMP 36.7; O2SAT 98
== END 2025-02-07 10:41 | disposition home or self-care (01) ==
LOC: HO.INF 09:45
PROVIDERS: Visit Provider Nurse Practitioner Family
DX: D64.9 Anemia, unspecified (principal)
CPT/HCPCS: 96365; 96374; J1756

== ENCOUNTER 2025-02-13 14:41 | Outpatient (REF) | payer BC, SELFPAY ==
--- OUTSIDE RECORDS SUMMARY | 2024-08-09 10:00 | XMS_ITS ---
Author Organization [facility] Address [address] [place] [address] Care Team Providers Care Burlap Spreader Name Role Phone Valentino HATCH, Faye Primary Care Provider Waqas Cash [phone] Encounters Encounter Location Date Provider Diagnosis [facility] Out[place] [address] [place], [place] [id number] 08/09/2024 Waqas Diaz Plan Of Treatment Next Appt Details Provider Name:Waqas Diaz , 03/05/2025 10:20:00 AM, [address], [address], [place], [address], Progress Notes * JOSE WINSLOWDOB: [birth year] (49 yo M)Acc No.[id number]:08/09/2024 COLON WITH MAC Patient: Codey MCGEE JOSE Baez Provider: Jimena Diaz MD :1975 A ge:49 Y S ex:Male Date:08/09/2024 Address:[id number] Pcp:Faye Avelar MD Subjective: * Chief Complaints: [...] 08/09/2024 Generated for Blanca lou/Ariel/Mally on: 0 02/13/2025 05:17 PM EDT
--- OUTSIDE RECORDS SUMMARY | 2024-08-23 10:30 | XMS_ITS ---
Author Organization [facility] Address [address] [place] [address] Care Team Providers Care Customer Care Agent Name Role Phone Valentino HATCH, [facility] Primary Care Provider Waqas Cash [phone] REASON FOR VISIT diarrhea,anemia, rectal bleeding ,peptic ulcer Encounters Encounter Location Date Provider Diagnosis [facility] Outpatient [address] [place] [phone] 08/23/2024 Waqas Diaz Rectal bleed K62.5 ; [...] [address], [address], [place], [address], Progress Notes * JOSE WINSLOW JDOB: [birth year] (49 yo M)Acc No.[id number]:08/23/2024 EGD and COL/MAC Patient: JOSE CHING Provider: Jimena Diaz MD :1975 A ge:49 Y S ex:Male Date:08/23/2024 Address:[address] [place] [address] [id number] Pcp:Faye Avelar MD Subjective: * Chief Complaints: [...] Procedure Codes: 4 5380 COLONOSCOPY AND BIOPSY, 54096 UPPER GI ENDOSCOPY, BIOPSY * * The named appointment provid er may or may not be the originator of this progress note, and it is not deemed complete until electronically signed by the appointment provider. Sign off status: Pending * Provider: Jimena Diaz MD Date: 08/23/2024 Generated for Blanca lou/Ariel/eTransmitting on: 0 02/13/2025 05:17 PM EDT
--- OUTSIDE RECORDS SUMMARY | 2025-02-11 06:07 | XMS_ITS ---
Author Organization [facility] Address [address] [place] [address] Care Team Providers Care Hand Trimmer Name Role Phone Valentino HATCH, [facility] Primary Care Provider Waqas Cash [phone] Results Component Value Reference Range Notes Ferritin (Not yet reviewed b y provider) Interpretation: Performing Lab:[facility], [address] [place] [phone] Notes/Report: Ferritin 89 20-250 ng/mL REASON FOR VISIT blood in stool Encounters Encounter Location Date Provider Diagnosis [facility] [address] [facility] [address] [place] [address] 02/11/2025 Waqas Diaz Rectal bleeding K62.5 Assessments Encounter Date Diagnosis (ICD Code) Assessment Notes Treatment Notes Treatment Clinical Notes Section Notes 02/11/2025 Rectal bleeding (ICD-10 - K62.5) Plan Of Treatment Pending Test Test Name Order Date CHEM 7 PROFILE 02/11/2025 LIVER PROFILE 02/11/2025 IRON + IBC (FE) 02/11/2025 CRP 02/11/2025 CBC w DIFF 02/11/2025 SED RATE (ESR) 02/11/2025 Ferritin 02/11/2025 Next Appt Details Provider Name:Waqas Diaz , 03/05/2025 10:20:00 AM, [address], [address], [place], [address], Progress Notes * JOSE WINSLOWDOB: [birth year] (49 yo M)Acc No.[id number]:02/11/2025 Patient: JOSE CHING :1975 A ge:49 Y S ex:Male Address:[address] [place] [address] [place], [address] Subjective: * Chief Complaints: * B lood in stool * Medical History: * Surgical History: * Hospitalization/Major Diagno stic Procedure: * Medications: Objective: * Vitals: * Physical Examination: Assessment: * Assessment: 1. R ectal bleeding - K62.5 (Primary) Plan: * Treatment: Value Reference Range F erritin 89 20-250 - ng/mL * Procedure Codes: * * Date:
[2025-02-13 14:59] LABS: MANUAL DIFF FLAG NO
[2025-02-13 15:32] LABS: Hematocrit 34.3 % (42.0-52.0); Hemoglobin 10.3 g/dl (14.0-18.0); Imm Gran Abs Auto 0.03 X10*3/uL (0.00-0.03); Imm Gran Pct Auto 0.6 % (0.0-0.4); Lymphocytes Absolute Auto 1.6 X10*3/uL (1.2-4.9); Mean Corpuscular HGB Conc 30.0 g/dl (31.0-36.0); Mean Corpuscular Hemoglobin 25.6 pg (27.0-33.0); Mean Corpuscular Volume 85.1 fL (80.0-98.0); NRBC Abs Auto 0.000 X10*3/uL (0.0-0.012); NRBC Pct Auto 0.0 /100WBC (0.0-0.2); Platelet Count 244 X10*3/uL (160-400); Red Blood Count 4.03 X10*6/uL (4.60-5.80); White Blood Count 5.4 X10*3/uL (4.8-10.8)
[2025-02-13 16:04] LABS: Alanine Aminotransferase 36 U/L (0-40); Albumin Level 4.1 g/dL (3.5-5.0); Alkaline Phosphatase 129 U/L (39-117); Anion Gap 10 (12-20); Aspartate Amino Transferase 35 U/L (5-37); Blood Urea Nitrogen 17 mg/dL (9-16); Calcium 8.8 mg/dL (8.4-10.2); Carbon Dioxide 32 mmol/L (22-29); Chloride 103 mmol/L (96-108); Estimated Glomerular Filt Rate > 60; Iron 33 mcg/dL (45-160); Percent Iron Saturation 8 % (15-50); Potassium 4.4 mmol/L (3.3-5.1); Sodium 141 mmol/L (135-145); Total Iron Binding Capacity 399 mcg/dL (228-428); Total Protein 7.2 g/dL (6.5-8.0); Unsaturated Iron Binding 366 ug/dL
[2025-02-13 16:18] LABS: Ferritin 89 ng/mL (20-250)
--- OUTSIDE RECORDS SUMMARY | 2025-02-13 17:17 | XMS_ITS | Encounter Summary ---
Author Organization [facility] Address [address] [facility] [address] [place] [address] Phone Care Team Providers Care Steward[employer] Name Role Phone Faye Avelar MD Primary Care Provider [phone] Shagufta Bhakta MD, PhD Unavailable [phone] Encounter Details Date Type Department Care Team ([facility] st Contact Info) Description 04/24/2024 Telephone VIRTUAL DEPARTMENT [address] [place] [phone] Natalie Acosta MD [address] [place] [address] [email or web address] Social History Tobacco Use Types Packs/Day [...] Department Care Team (Latest Contact Info) Description 02/19/2025 Procedure Pass [facility] [address] [place] [address] 02/19/2025 7:30 AM EDT Hospital Encounter [facility] [address] [place] [address] Natalie Acosta MD [address] [address] [email or web address] 02/19/2025 7:30 AM EDT - 02/19/2025 2:11 PM EDT Surgery [facility]PT [address] [place] [address] Natalie Acosta MD [address] [place] [address] [email or web address] ROBOTIC REPAIR MITRAL VALVE ( tissue ) Scheduled Procedures Name Priority Associated Diagnoses Date/Ti nh ROBOTIC REPAIR MITRAL VALVE Mitral valve prolapse 02/19/2025 7:30 AM EDT documented as of this encounter Visit Diagnoses Not on filedocumented in this encounter Care Teams Steward[employer] D[employer] Car Relationship Specialty Start Date End Date Faye Avelar MD [address] [facility] [place] [address] PCP - General Internal Medicine 09/19/23 Shagufta Bhakta MD, PhD [address] [place] [address] [address] [place] [address] [email or web address] Icing Coater Interventional Cardiology 10/11/23 documented as of this encounter Additional Source Comments The information contained in this document represents components of the legal health record. It is not the complete legal health record.[facility]
--- OUTSIDE RECORDS SUMMARY | 2025-02-13 17:17 | XMS_ITS | Clinical Summary ---
Author Organization [facility] Address [address] [place] [address] Phone Care Team Providers Care Gas Analyst Name Role Phone Faye Avelar MD Primary Care Provider [phone] Shagufta Bhakta MD, PhD Unavailable [phone] Allergies No known active allergies Medications valsartan [...] mouth daily. 90 tablet 3 02/06/2024 Active mupirocin (BACTROBAN) 2 % ointment by Nasal route 2 (two) times a day for 10 doses. Take a pea size on a cue tip and swab each nostril once for 10 doses. Take first dose 02/14 at night, then twice a day with the last dose in the morning the day of surgery (02/19 in the AM). 22 g 02/14/2025 02/20/20 Active Active Problems Problem Noted Date Diagnosed [...] visit around 01/11. Per patient echo at [facility] showed severe MR. Of note, he was born with murmur. He plays tennis for 2-3 hours per week and pickle ball for 1 hour per week. P: echo, dental consult Encounters Date Type Department Care Team Description 02/12/2025 Telephone [facility] Division of Cardiac Surgery [address], 6th [address], [address] [place] [address] Panchito Stark CNP 02/06/2025 Documentation [facility] Division of Cardiac Surgery [address], [address] [place] [address] Cornelia Palacios RN 02/05/2025 2:14 PM EDT - 02/05/2025 11:59 PM EDT Hospital Encounter [facility] Imaging - Shelton Morelos 2 [address] [facility], 2nd [place] [address] Renetta Stevens CNP Discharge Disposition: Home or Self Care 02/05/2025 2:01 PM EDT - 02/05/2025 2:13 PM EDT Hospital Encounter [facility] [address] [facility] [place] [address] Natalie Acosta MD Discharge Disposition: Home or Self Care 02/05/2025 1:00 PM EDT Pre-Admission Testing [facility] Division of Cardiac Surgery [address], [address], [address] [place] [address] Natalie Acosta MD Dyspnea, unspecified type (Primary Dx); Preop testing 02/05/2025 Orders Only [facility] EKG LAB VIRTUAL DEPARTMENT [address] [place] [address] Jovana Luis Preop testing 01/18/2025 Documentation [facility] Division of Cardiac Surgery [address], [address], [address] [place] [address] Renetta Stevens, INSTRUCTOR [employer] 11/29/2024 Telephone VIRTUAL DEPARTMENT [address] [place] [phone] Natalie Acosta MD 11/28/2024 Documentation [facility] Division of Cardiac Surgery [address], [address], [address] [place] [address] Alaina Brizuela FNP 11/20/2024 Orders Only [facility] Division of Cardiac Surgery [address] [place] [address], 6th Floor, [address] [place] [address] Alaina Brizuela FNP Preop cardiovascular exam (Primary Dx) 11/16/2024 Orders Only [facility] Division of Cardiac Surgery [address], [address], [address] [place] [address] Med Kaye MD 11/15/2024 Orders Only [facility] Division of Cardiac Surgery [address] [place] [address], 6th Floor, [address] [place] [address] Med Kaye MD 11/13/2024 7:30 AM EDT - 11/13/2024 11:59 PM EDT Hospital Encounter [facility] Cardiac US [address] [place] [address] Alaina Brizuela FNP Discharge Disposition: Home or Self Care 09/11/2024 Procedure Pass [facility] Cardiac US [address] [place] [address] from Last 3 Months Family History Medical [...] Sign Reading Time Taken Comments Blood Pressure 120/64 02/05/2025 1:13 PM EDT 122/64 RIGHT Pulse 53 02/05/2025 1:13 PM EDT Temperature 36.3 C (97.4 F) 02/05/2025 1:13 PM EDT Respiratory Rate 16 02/05/2025 1:13 PM EDT Oxygen Saturation 98% 02/05/2025 1:1 3 PM EDT Inhaled Oxygen Concentration - - Weight 76.6 kg (168 lb 12.8 oz) 02/05/2025 1:13 PM EDT Height 180.3 cm (5' 11 ) 02/05/2025 1:1 3 PM EDT Body Mass Index 23.54 02/05/2025 1:13 PM EDT Plan of Treatment Upcoming Encounters Date Type Department Care Team (Latest Contact Info) Description 02/19/2025 Procedure Pass [facility] PER[facility]IVE [facility]PT [address] [place] [address] 02/19/2025 7:30 AM EDT Hospital Encounter [facility] [address] [place] [address] Natalie Acosta MD [address] [address] [email or web address] 02/19/2025 7:30 AM EDT - 02/19/2025 2:11 PM EDT Surgery [facility] [address] [place] [address] Natalie Acosta MD [address] [address] [email or web address] ROBOTIC REPAIR MITRAL VALVE ( tissue ) Scheduled Procedures Name Priority Associated Diagnoses Date/Ti hi ROBOTIC REPAIR MITRAL VALVE Mitral valve prolapse 02/19/2025 7:30 AM EDT Health Maintenance Due Date Last Done Comments Adult Td,Tdap Booster 1974 LIPID PANEL 1974 DEPRESSION SCREENING 1986 SMOKING Hx and SMOKELESS TOB ACCO SCREENING 1987 HEPATITIS C SCREENING 02/16/1992 HIV ONE-TIME SCREENING (18-6 5 YEARS) 02/16/1992 PNEUMOCOCCAL VACCINES (50+ y ears) (1 of 2 - PCV) 1993 COLOGUARD 2019 COLONOSCOPY 2019 COLORECTAL CANCER SCREENING 2019 FIT TEST 2019 FOBT 2019 SIGMOIDOSCOPY 2019 VIRTUAL COLONOSCOPY 2019 ZOSTER VACCINES (1 of 2) 02/16/2024 INFLUENZA VACCINE (#1) 2024 COVID-19 VACCINE (1 - 2023-2 5 season) 2025 CREATININE LEVEL 02/05/2026 02/05/2025 POTASSIUM LEVEL 02/05/2026 02/05/2025 HEPATITIS A VACCINES Aged Out No long [...] Procedure Name Priority Date/Time Associated Diagnosis Comments ECG 12-LEAD Routine 02/05/2025 2:28 PM EDT Preop testing XR CHEST PA AND LATERAL 2 VIEWS Routine 02/05/2025 2:20 PM EDT Dyspnea, unspecified type Preop testing ABO AND RH Routine 02/05/2025 2:11 PM EDT TYPE AND SCREEN (ABO,RH,ANTIBODY SCREEN) Routine 02/05/2025 2:11 PM EDT Preop testing CBC AND DIFFERENTIAL Routine 02/05/2025 2:11 PM EDT Preop testing COMPREHENSIVE METABOLIC PANEL Routine 02/05/2025 2:11 PM EDT Preop testing MAGNESIUM Routine 02/05/2025 2:11 PM EDT Preop testing HEMOGLOBIN A1C Routine 02/05/2025 2:11 PM EDT Preop testing PT-INR Routine 02/05/2025 2:11 PM EDT Preop testing PTT Routine 02/05/2025 2:11 PM EDT Preop testing MRSA/MSSA PRE-OP PCR Routine 02/05/2025 2:11 PM EDT Preop testing OUTSIDE PROCEDURE Routine 11/16/2024 10: 17 AM EDT OUTSIDE LAB Routine 11/15/2024 4:30 PM EDT TTE COMPREHENSIVE Routine 11/13/2024 9:1 8 AM EDT Cardiac murmur, unspecified from Last 3 Months Results * ECG 12-LEAD (02/05/2025 2:28 PM EDT) Systolic Blood Pressure [facility] Diastolic Blood Pressure [facility] Ventricular Rate EKG/MIN 47 BPM [facility] Atrial Rate 47 BPM [facility] LA Interval 132 ms [facility] QRS Duration 84 ms [facility] QT Interval 496 ms [facility] QTC Interval 438 ms [facility] P [place] 16 degrees [facility] R Wave [place] 19 degrees [facility] T Wave [place] 3 degrees [facility] 02/05/2025 2:28 PM EDT 02/07/2025 10:50 AM EDT Narrative [facility] - 02/07/2025 10:50 AM EDT LOC: [facility] 6 - CARDIAC SURG DX: PRE-OP REF: RENETTA Peralta CNP SINUS BRADYCARDIA NONSPECIFIC ST SEGMENT AND T WAVE ABNORMALITIES WHEN COMPARED WITH ECG OF 22-Sep-2023 11:01, ,,, THE HEART RATE HAS SLOWED BY 13 BPM. SUGGEST CLINICAL CORRELATION Electronically Signed in [employer] system. Confirmed by Pipe SHERWOOD, RAlessio ([id number]) on 02/07/2025 10:50:43 AM us Renetta Stevens CNP ECG ORDERABLES Final Res ult [facility] * XR CHEST PA AND LATERAL 2 VIEWS (02/05/2025 2:20 PM EDT) Anatomical Region Laterality Modality Chest Computed Radiogr aphy 02/05/2025 2:26 PM EDT Impressions 02/05/2025 4:40 PM EDT Clear lungs. No evidence of pneumonia. Borderline enlargement of the cardiac silhouette. ATTESTATION: I, Dr. Sagrario Gaston as teaching physician, have reviewed the images for this case and if necessary edited the report originally created by Keith Eisenberg. Narrative 02/05/2025 4:40 PM EDT XR CHEST PA AND LATERAL 2 VIEWS Referring clinician's provided indication for this examination in Epic: Dyspnea on exertion; preoperative evaluation COMPARISON: CT CARDIAC (CORONARY) WITH AND WITHOUT CONTRAST, CT ANGIO ABD/.. FINDINGS: Devices/Tubes/Lines: None. Lungs: The lungs are clear. No focal consolidation or pulmonary edema. Pleura: No pleural effusion or pneumothorax. Heart/Mediastinum: The cardiac silhouette is at the upper limits of normal. Bones/Soft Tissues: Normal. No significant skeletal abnormality. Procedure Note Sagrario Gaston MD - 02/05/2025 XR CHEST PA AND LATERAL 2 VIEWS Referring clinician's provided indication for this examination in Epic:Dyspnea on exertion; preoperative evaluation COMPARISON: CT CARDIAC (CORONARY) WITH AND WITHOUT CONTRAST, CT ANGIOABD/.. FINDINGS: Devices/Tubes/Lines: None. Lungs: The lungs are clear. No focal consolidation or pulmonary edema. Pleura: No pleural effusion or pneumothorax. Heart/Mediastinum: The cardiac silhouette is at the upper limits ofnormal. Bones/Soft Tissues: Normal. No significant skeletal abnormality. IMPRESSION: Clear lungs. No evidence of pneumonia. Borderline enlargement of the cardiac silhouette. ATTESTATION: I, Dr. Sagrario Gaston as teaching physician, have reviewedthe images for this case and if necessary edited the report originallycreated by Keith Eisenberg. Renetta Stevens CNP IM XR CHEST Final Res ult * (ABNORMAL) MRSA/MSSA PRE-OP PCR (02/05/2025 2:11 PM EDT) MRSA PCR SCREEN NEGATIVE FOR MRSA (Methicillin Resistant S.aureus) NEGATIVE FOR MRSA (Methicillin Resistant S.aureus) [facility] MSSA PCR SCREEN POSITIVE FOR MSSA (Methicillin Susceptible S.aureus)(A) NEGATIVE FOR MSSA (Methicillin Susceptible S.aureus) [facility] Comment:This test was conduc jacque as part of Pre-Operative Screening for Staphylococcus aureus. Please direct any questions regarding this result to the Ordering Provider. Nasal (Nasal) 02/05/2025 2:1 1 PM EDT 02/05/2025 5:14 PM EDT Renetta C Maceachern INSTRUCTOR [employer] NON CULTURE MICROBIOLOGY Final Result [facility] [address] [place] [address] * (ABNORMAL) Comprehensive metabolic panel (02/05/2025 2:11 PM EDT) SODIUM 140 135 - 145 mmol/L [facility] POTASSIUM 4.2 3.4 - 5.0 mmol/L [facility] CHLORIDE 102 98 - 108 mmol/L [facility] CO2 26 23 - 32 mmol/L [facility] BUN 12 8 - 25 mg/dL [facility] CREATININE 1.31(H) 0.60 - 1.30 mg/dL [facility] GLUCOSE 97 70 - 110 mg/dL [facility] ALBUMIN 4.2 3.3 - 5.0 g/dL [facility] TOTAL PROTEIN 7.3 6.0 - 8.3 g/dL [facility] CALCIUM 9.1 8.5 - 10.5 mg/dL [facility] ALKALINE PHOSPHATASE 129(H) 45 - 115 U/L [facility] TOTAL BILIRUBIN 0.3 0.0 - 1.0 mg/dL [facility] AST 27 10 - 40 U/L [facility] ALT 21 10 - 55 U/L [facility] GLOBULIN 3.1 1.9 - 4.1 g/dL [facility] EGFR 66 >59 mL/min/1. 73m2 [facility] Comment:Estimated glomerular filtration rate calculated using the CKD-EPI refit equation. ANION GAP 12 3 - 17 mmol/L [facility] 02/05/2025 2:11 PM EDT 02/05/2025 7:10 PM EDT Renetta Stevens INSTRUCTOR [employer] LAB BLOOD ORDERABLES Jeanine l Result [facility] [address] [place] [address] * ABO and Rh (02/05/2025 2:11 PM EDT) Expiration Date of Sample 03/07/2025 11:59 PM [facility] ABO O 02/05/2025 4:40 PM EDT [facility] Rh Positive 02/05/2025 4:40 PM EDT [facility] Resulting Agency [facility] 02/05/2025 2:11 PM EDT 02/05/2025 3:33 PM EDT Blood Bank BLOOD BANK TEST ORDERABLES Final Result [address] [address] * PTT (02/05/2025 2:11 PM EDT) APTT 27.2 24.0 - 37.5 sec [facility] Comment:Check MAR for the ta rget range that is ordered for your patient. 02/05/2025 2:11 PM EDT 02/05/2025 3:35 PM EDT Renetta Stevens [facility] LAB BLOOD ORDERABLES Jeanine l Result Performing Organization Address [facility] Co de Phone Number [address] [address] * PT-INR (02/05/2025 2:11 PM EDT) PT 10.9 10.0 - 13.0 sec [facility] INR 1.0 0.9 - 1.1 [facility] 02/05/2025 2:11 PM EDT 02/05/2025 3:35 PM EDT Renetta Stevens INSTRUCTOR [employer] LAB BLOOD ORDERABLES Jeanine l Result [address] [address] * (ABNORMAL) CBC and differential (02/05/2025 2:11 PM EDT) WBC 5.50 4.00 - 11.00 K/uL [facility] RBC 3.80(L) 4.50 - 5.90 M/uL [facility] HGB 9.4(L) 13.5 - 17.5 g/dL [facility] HCT 32.2(L) 41.0 - 53.0 % [facility] PLT 259 150 - 450 K/uL [facility] MCV 84.7 80.0 - 100.0 fL [facility] MCH 24.7(L) 27.0 - 31.0 pg [facility] MCHC 29.2(L) 32.0 - 36.0 g/dL [facility] RDW 21.8(H) 11.5 - 14.5 % [facility] MPV 10.3 8.4 - 12.0 fL [facility] NRBC 0.00 0.00 /100 WBCs [facility] ABSOLUTE NRBC 0.00 0.00 K/uL [facility] DI[facility] METHOD Auto [facility] NEUTS 55.0 48.0 - 76.0 % [facility] LYMPHS 28.7 18.0 - 41.0 % [facility] MONOS 10.5 4.0 - 11.0 % [facility] EOS 3.1 0.0 - 5.0 % [facility] BASOS 1.8(H) 0.0 - 1.5 % [facility] % IMMATURE GRANS 0.9 0.0 - 0.9 % [facility] ABSOLUTE NEUTS 3.02 1.92 - 7.60 K/uL [facility] ABSOLUTE LYMPHS 1.58 0.72 - 4.10 K/uL [facility] ABSOLUTE MONOS 0.58 0.16 - 1.10 K/uL [facility] ABSOLUTE EOS 0.17 0.00 - 0.50 K/uL [facility] ABSOLUTE BASOS 0.10 0.00 - 0.15 K/uL [facility] ABS IMMATURE GRANS 0.05 0.00 - 0.09 K/uL [facility] Blood 02/05/2025 2:11 PM EDT 02/05/2025 7:13 PM EDT us Renetta Stevens INSTRUCTOR [employer] LAB BLOOD ORDERABLES Jeanine sim Result [facility] [address] [place] [address] * Type and Screen (ABO,Rh,Antibody Screen) (02/05/2025 2:11 PM EDT) Expiration Date of Sample 03/07/2025 11:59 PM [facility] ABO O 02/05/2025 4:40 PM EDT [facility] Rh Positive 02/05/2025 4:40 PM EDT [facility] Resulting Agency [facility] Antibody Screen Negative 02/05/2025 4:40 PM EDT [facility] 02/05/2025 2:11 PM EDT 02/05/2025 3:33 PM EDT us Renetta Stevens [facility] BLOOD BANK TEST ORDERABLE S Final Result Performing Organization Address City/[facility] Co de Phone Number [address] [address] * Magnesium (02/05/2025 2:11 PM EDT) Pathologist [facility] MAGNESIUM 2.4 1.7 - 2.4 mg/dL [facility] 02/05/2025 2:11 PM EDT 02/05/2025 7:10 PM EDT us Renetta Stevens [facility] LAB BLOOD ORDERABLES Jeanine l Result Performing Organization Address City/[facility] Co de Phone Number [address] [address] * Hemoglobin A1c (02/05/2025 2:11 PM EDT) Pathologist [facility] HEMOGLOBIN A1C 5.0 4.3 - 5.6 % [facility] Comment:HbA1c levels 5.7-6.4 % represent pre-diabetes, indicating impaired glucose control and an increased risk of developing diabetes compared with lower HbA1c levels. The diagnostic HbA1c level for diabetes is 6.5% or greater. CALC MEAN BLD GLUC 97 mg/dL [facility] Comment:There is no establis [facility] normal range for the Calculated Mean Blood Glucose (CMBG), however a HbA1c of 5.6% (upper limit of normal) represents a CMBG of 114 mg/dL. The diagnostic hemoglobin A1c level for diabetes is greater than or equal to 6.5% which represents a CMBG greater than or equal to 140 mg/dL. 02/05/2025 2:11 PM EDT 02/05/2025 6:53 PM EDT Result [facility] us Renetta Stevens CNP LAB BLOOD ORDERABLES Jeanine l Result [facility] [address] [place] [address] * Outside Procedure (11/16/2024 10:17 AM EDT) us Historical Provider MD PROCEDURE/MINOR SURGICAL PERFORMABLES Final Result * Outside Lab (11/15/2024 4:30 PM EDT) us Historical Provider MD LAB BLOOD ORDERABLES Jeanine [...] LV and LA are now dilated. Alaina BROWERP CV ECHO ORDERABLES Final Res ult from Last 3 Months Insurance [facility] PPO [facility] PPO [facility] PPO BLUE [place] OUT OF STATE PPO BLUE [place] [facility] PPO Advance Directives For more information, please contact: [phone] (9AM - 5PM [facility], Tuesday-Tuesday) Documents on File Type Date Recorded Patient Coroner/Medical Examiner Expl anation Healthcare Proxy 02/06/2025 9:14 AM Care Teams Gas Analyst Relationship Specialty Start Date End Date Faye Avelar MD [facility] [place] [address] PCP - General Internal Medicine 09/19/23 Shagufta Bhakta MD, PhD [address] [place] [address] [address] [place] [address] [email or web address] Floor Assembler Interventional Cardiology 10/11/23 Additional Source Comments The information contained in this document represents components of the legal health record. It is not the complete legal health record.[facility]
--- OUTSIDE RECORDS SUMMARY | 2025-02-13 17:17 | XMS_ITS | Encounter Summary ---
Author Organization [facility] Address [address] [address] [place] [address] Phone Care Team Providers Care Professor Of Kinesiology Name Role Phone Faye Avelar MD Primary Care Provider Shagufta Bhakta MD, PhD Unavailable [phone] Encounter Details Date Type Department Care Team ([facility] st Contact Info) Description 03/27/2024 Telephone VIRTUAL DEPARTMENT [address] [place] [phone] Natalie Acosta MD [address] [place] [phone] [email or web address] Social History Tobacco Use Types Packs/Day [...] (Latest Contact Info) Description 02/19/2025 Procedure Pass [facility] PER[facility]IVE [facility]PT [address] [place] [address] 02/19/2025 7:30 AM EDT Hospital Encounter [facility] [address] [place] [address] Natalie Acosta MD [address] [address] [email or web address] 02/19/2025 7:30 AM EDT - 02/19/2025 2:11 PM EDT Surgery [facility] [address] [place] [address] Natalie Acosta MD [address] [place] [phone] [email or web address] ROBOTIC REPAIR MITRAL VALVE ( tissue ) Scheduled Procedures Name Priority Associated Diagnoses Date/Ti al ROBOTIC REPAIR MITRAL VALVE Mitral valve prolapse 02/19/2025 7:30 AM EDT documented as of this encounter Visit Diagnoses Not on filedocumented in this encounter Care Teams Professor Of Kinesiology Relationship Specialty Start Date End Date Faye Avelar MD [address] [facility] [place] [address] PCP - General Internal Medicine 09/19/23 Shagufta Bhakta MD, PhD [address] [place] [address] [address] [place] [address] [email or web address] Fur Operator Interventional Cardiology 10/11/23 documented as of this encounter Additional Source Comments The information contained in this document represents components of the legal health record. It is not the complete legal health record.[facility]
--- OUTSIDE RECORDS SUMMARY | 2025-02-13 17:17 | XMS_ITS | Encounter Summary ---
Author Organization [facility] Address [address] [place] [address] [place] [address] Phone Care Team Providers Care Process Control Technician Name Role Phone Faye Avelar MD Primary Care Provider Shagufta Bhakta MD, PhD Unavailable [phone] Encounter Details Date Type Department Care Team (Late st Contact Info) Description 02/05/2025 Orders Only [facility] EKG LAB VIRTUAL DEPARTMENT [address] [place] [address] Jovana Luis [address] [place] [phone] [email or web address] Preop testing Social History Tobacco Use Types Packs/Day Years [...] (Latest Contact Info) Description 02/19/2025 Procedure Pass [facility] PERIOPERATIVE DEPT [address] [place] [address] 02/19/2025 7:30 AM EDT Hospital Encounter [facility] PERIOPERATIVE DEPT [address] [place] [address] Natalie Acosta MD [address] [place] [address] [email or web address] 02/19/2025 7:30 AM EDT - 02/19/2025 2:11 PM EDT Surgery [facility] PERIOPERATIVE DEPT [address] [place] [address] Natalie Acosta MD [address] [place] [phone] [email or web address] ROBOTIC REPAIR MITRAL VALVE ( tissue ) Scheduled Procedures Name Priority Associated Diagnoses Date/Ti me ROBOTIC REPAIR MITRAL VALVE Mitral valve prolapse 02/19/2025 7:30 AM EDT documented as of this encounter Procedures Procedure Name Priority Date/Time Associated Diagnosis Comments ECG 12-LEAD Routine 02/05/2025 2:28 PM EDT Preop testing documented in this encounter Results * ECG 12-LEAD (02/05/2025 2:28 PM EDT) Systolic Blood Pressure [facility] Diastolic Blood Pressure [facility] Ventricular Rate EKG/MIN 47 BPM [facility] Atrial Rate 47 BPM [facility] [place] Interval 132 ms [facility] QRS Duration 84 ms [facility] QT Interval 496 ms [facility] QTC Interval 438 ms [facility] P [place] 16 degrees [facility] R Wave [place] 19 degrees [facility] T Wave [place] 3 degrees [facility] 02/05/2025 2:28 PM EDT 02/07/2025 10:50 AM EDT Narrative VIKTORIA - 02/07/2025 10:50 AM EDT LOC: [facility] 6 - CARDIAC SURG DX: PRE-OP REF: RENETTA Peralta CNP SINUS BRADYCARDIA NONSPECIFIC ST SEGMENT AND T WAVE ABNORMALITIES WHEN COMPARED WITH ECG OF 22-Sep-2023 11:01, ,,, THE HEART RATE HAS SLOWED BY 13 BPM. SUGGEST CLINICAL CORRELATION Electronically Signed in [employer] system. Confirmed by Pipe SHERWOOD, RAlessio ([id number]) on 02/07/2025 10:50:43 AM us Renetta Stevens CNP ECG ORDERABLES Final Res ult [facility]ON[facility] documented in this encounter Visit Diagnoses Diagnosis Preop testing Unspecified pre-operative examination Mitral valve prolapse Mitral valve disorders documented in this encounter Care Teams Process Control Technician Relationship Specialty Start Date End Date Faye Avelar MD [address] [facility] [place] [address] PCP - General Internal Medicine 09/19/23 Shagufta Bhakta MD, PhD [address] [place] [address] [email or web address] Home Health Aide Interventional Cardiology 10/11/23 documented as of this encounter Additional Source Comments The information contained in this document represents components of the legal health record. It is not the complete legal health record.[facility]
--- OUTSIDE RECORDS SUMMARY | 2025-02-13 17:17 | XMS_ITS | Encounter Summary ---
Author Organization [facility] Address [address] [facility] [address] [place] [address] Phone Care Team Providers Care Varnisher Apprentice Name Role Phone Faye Avelar MD Primary Care Provider Shagufta Bhakta MD, PhD Unavailable [phone] Encounter Details Date Type Department Care Team (Late st Contact Info) Description 10/13/2023 Procedure Pass [facility], [address] [facility], 2nd Floor, [address] [place] [address] Social History Tobacco Use Types Packs/Day Years [...] (Latest Contact Info) Description 02/19/2025 Procedure Pass [facility] PERIOPERATIVE DEPT [address] [place] [address] 02/19/2025 7:30 AM EDT Hospital Encounter [facility] PERIOPERATIVE DEPT [address] [place] [address] Natalie Acosta MD [address] [place] [address] [email or web address] 02/19/2025 7:30 AM EDT - 02/19/2025 2:11 PM EDT Surgery [facility] PERIOPERATIVE DEPT [address] [place] [address] Natalie Acosta MD [address] [address] [email or web address] ROBOTIC REPAIR MITRAL VALVE ( tissue ) Scheduled Procedures Name Priority Associated Diagnoses Date/Ti oh ROBOTIC REPAIR MITRAL VALVE Mitral valve prolapse 02/19/2025 7:30 AM EDT documented as of this encounter Visit Diagnoses Not on filedocumented in this encounter Care Teams Varnisher Apprentice Relationship Specialty Start Date End Date Faye Avelar MD [address] [place] [address] PCP - General Internal Medicine 09/19/23 Shagufta Bhakta MD, PhD [address] [place] [address] [address] [place] [address] DIANA@[email or web address] Cable Cutter And Swager Interventional Cardiology 10/11/23 documented as of this encounter Additional Source Comments The information contained in this document represents components of the legal health record. It is not the complete legal health record.[facility]
--- OUTSIDE RECORDS SUMMARY | 2025-02-13 17:18 | XMS_ITS | Encounter Summary ---
Author Organization [facility] Address [address] [place] [address] [place] [address] Phone Care Team Providers Care Asbestos Worker Helper Name Role Phone Faye Avelar MD Primary Care Provider Shagufta Bhakta MD, PhD Unavailable [phone] Encounter Details Date Type Department Care Team (Late st Contact Info) Description 09/22/2023 Procedure Pass [facility] [address] [place] [address] Social History Tobacco Use Types Packs/Day Years [...] (Latest Contact Info) Description 02/19/2025 Procedure Pass [facility] PERI[facility]IVE DEPT [address] [place] [address] 02/19/2025 7:30 AM EDT Hospital Encounter [facility]PT [address] [place] [address] Natalie Acosta MD [address] [facility] [address] [place] [address] [email or web address] 02/19/2025 7:30 AM EDT - 02/19/2025 2:11 PM EDT Surgery [facility] PERI[facility]IVE DEPT [address] [place] [address] Natalie Acosta MD [address] [address] [email or web address] ROBOTIC REPAIR MITRAL VALVE ( tissue ) Scheduled Procedures Name Priority Associated Diagnoses Date/Ti sd ROBOTIC REPAIR MITRAL VALVE Mitral valve prolapse 02/19/2025 7:30 AM EDT documented as of this encounter Visit Diagnoses Not on filedocumented in this encounter Care Teams Asbestos Worker Helper Relationship Specialty Start Date End Date Faye Avelar MD [address] [facility] [address] PCP - General Internal Medicine 09/19/23 Shagufta Bhakta MD, PhD [address] [place] [address] [address] [place] [address] DIANA@[email or web address] Monogram Operator Interventional Cardiology 10/11/23 documented as of this encounter Additional Source Comments The information contained in this document represents components of the legal health record. It is not the complete legal health record.[facility]
--- OUTSIDE RECORDS SUMMARY | 2025-02-13 17:18 | XMS_ITS | Encounter Summary ---
Author Organization [facility] Address [address] [place] [address] [place] [address] Phone Care Team Providers Care Forestry Tree Pruner Name Role Phone Faye Avelar MD Primary Care Provider [phone] Shagufta Bhakta MD, PhD Unavailable [phone] Encounter Details Date Type Department Care Team (Late st Contact Info) Description 10/02/2024 Procedure Pass [facility] [address] [place] [phone] Social History Tobacco Use Types Packs/Day Years [...] (Latest Contact Info) Description 02/19/2025 Procedure Pass [facility] [address] [place] [address] 02/19/2025 7:30 AM EDT Hospital Encounter [facility] [address] [place] [address] Natalie Acosta MD [address] [address] JAYSHREE@[email or web address] 02/19/2025 7:30 AM EDT - 02/19/2025 2:11 PM EDT Surgery [facility] [address] [place] [address] Natalie Acosta MD [address] [address] JAYSHREE@[facility] ROBOTIC REPAIR MITRAL VALVE ( tissue ) Scheduled Procedures Name Priority Associated Diagnoses Date/Ti ga ROBOTIC REPAIR MITRAL VALVE Mitral valve prolapse 02/19/2025 7:30 AM EDT documented as of this encounter Visit Diagnoses Not on filedocumented in this encounter Care Teams Forestry Tree Pruner Relationship Specialty Start Date End Date Faye Avelar MD [facility] [place] [address] PCP - General Internal Medicine 09/19/23 Shagufta Bhakta MD, PhD [address] [place] [address] [address] [place] [address] DIANA@[email or web address] User Support Analyst Supervisor Interventional Cardiology 10/11/23 documented as of this encounter Additional Source Comments The information contained in this document represents components of the legal health record. It is not the complete legal health record.[facility]
--- OUTSIDE RECORDS SUMMARY | 2025-02-13 17:18 | XMS_ITS | Encounter Summary ---
Author Organization [facility] Address [address] [facility] [address] [place] [address] Phone Care Team Providers Care Cage/Vault Supervisor Name Role Phone Faye Avelar MD Primary Care Provider Shagufta Bhakta MD, PhD Unavailable [phone] Encounter Details Date Type Department Care Team ([facility] st Contact Info) Description 11/29/2024 Telephone VIRTUAL DEPARTMENT [address] [place] [phone] Natalie Acosta MD [address] [place] [address] [email or web address] Social History Tobacco Use Types Packs/Day [...] (Latest Contact Info) Description 02/19/2025 Procedure Pass [facility] [address] [place] [address] 02/19/2025 7:30 AM EDT Hospital Encounter [facility] [address] [place] [address] Natalie Acosta MD [address] [address] [email or web address] 02/19/2025 7:30 AM EDT - 02/19/2025 2:11 PM EDT Surgery [facility] PER[facility]OPER[facility] DEPT [address] [place] [address] Natalie Acosta MD [address] [place] [address] JAYSHREE@[email or web address] ROBOTIC REPAIR MITRAL VALVE ( tissue ) Scheduled Procedures Name Priority Associated Diagnoses Date/Ti [place] ROBOTIC REPAIR MITRAL VALVE Mitral valve prolapse 02/19/2025 7:30 AM EDT documented as of this encounter Visit Diagnoses Not on filedocumented in this encounter Care Teams Cage/Vault Supervisor Relationship Specialty Start Date End Date Faye Avelar MD [address] [place] [address] PCP - General Internal Medicine 09/19/23 Shagufta Bhakta MD, PhD [address] [place] [address] [address] [place] [address] DIANA@[email or web address] Ticket Broker Interventional Cardiology 10/11/23 documented as of this encounter Additional Source Comments The information contained in this document represents components of the legal health record. It is not the complete legal health record.[facility]
--- OUTSIDE RECORDS SUMMARY | 2025-02-13 17:18 | XMS_ITS | Encounter Summary ---
Author Organization [facility] Address [address] [place] [address] [place] [address] Phone Care Team Providers Care Garment Presser Name Role Phone Faye Avelar MD Primary Care Provider Shagufta Bhakta MD, PhD Unavailable [phone] Encounter Details Date Type Department Care Team (Late st Contact Info) Description 06/26/2024 Procedure Pass [facility] PERIOPER[facility]IVE DEPT [address] [place] [phone] Social History Tobacco Use Types Packs/Day Years [...] (Latest Contact Info) Description 02/19/2025 Procedure Pass [facility] PERIOPER[facility]IVE DEPT [address] [place] [address] 02/19/2025 7:30 AM EDT Hospital Encounter [facility] PERIOPER[facility]IVE DEPT [address] [place] [address] Natalie Acosta MD [address] [address] [email or web address] 02/19/2025 7:30 AM EDT - 02/19/2025 2:11 PM EDT Surgery [facility] PERIOPER[facility]IVE DEPT [address] [place] [address] Natalie Acosta MD [address] [address] [email or web address] ROBOTIC REPAIR MITRAL VALVE ( tissue ) Scheduled Procedures Name Priority Associated Diagnoses Date/Ti ct ROBOTIC REPAIR MITRAL VALVE Mitral valve prolapse 02/19/2025 7:30 AM EDT documented as of this encounter Visit Diagnoses Not on filedocumented in this encounter Care Teams Garment Presser Relationship Specialty Start Date End Date Faye Avelar MD [facility] [place] [address] PCP - General Internal Medicine 09/19/23 Shagufta Bhakta MD, PhD [address] [place] [address] [address] [place] [address] DIANA@[email or web address] Helmet Coverer Interventional Cardiology 10/11/23 documented as of this encounter Additional Source Comments The information contained in this document represents components of the legal health record. It is not the complete legal health record.[facility]
--- OUTSIDE RECORDS SUMMARY | 2025-02-13 17:18 | XMS_ITS | Patient Health Record ---
Author Organization [facility] Address [address] [place] [address] Care Team Providers Care Edge Stainer Name Role Phone Valentino HATCH, [facility] Primary Care Provider Waqas Cash [phone] Allergies No Known Allergies Results Component Value Reference Range Notes Ferritin (Not yet reviewed by provider) Interpretation: Performing Lab:[facility], [address] [place] [phone] Notes/Report: Ferritin 89 20-250 ng/mL Complete Blood Count Auto Di ff (Not yet reviewed by provider) Interpretation: Performing Lab:[facility], [address] [place] [phone] Notes/Report: White Blood Count 5.5 4.8-10.8 X10*3/uL [...] te Reviewed date:07/13/2024 07:08:00 PM Interpretation: Performing Lab:[address] [address] Notes/Report: Erythrocyte Sedimentation Rate 27 0-15 MM/HR Patients with polycythemia and many hemoglobin abnormalities may have depressed sed rates whereas patients with anemia may have elevated sed rates. Liver Panel Reviewed date:07/13/2024 07:07:38 PM Interpretation: Performing Lab:[address] [phone] Notes/Report: Bilirubin Total 0.4 0.0-1.0 mg/dL Bilirubin Direct 0.1 0.0-0.5 mg/dL Aspartate Amino Transferase 23 5-37 U/L Alanine Aminotransferase 17 0-40 U/L Total Protein 7.1 6.5-8.0 g/dL Albumin Level 3.8 3.5-5.0 g/dL Alkaline Phosphatase 119 39-117 U/L Basic Metabolic Panel Reviewed date:07/13/2024 07:07:22 PM Interpretation: Performing Lab:[address] [address] Notes/Report: Sodium 139 135-145 mmol/L Potassium 4.1 [...] Protein Reviewed date:07/13/2024 07:07:50 PM Interpretation: Performing Lab:[address] [phone] Notes/Report: C Reactive Protein 0.24 < or = 0.50 mg/dL Folate Reviewed date:07/20/2024 05:23:21 PM Interpretation: Performing Lab:[address] [phone] Notes/Report: Folate 12.6 > or = 4.0 ng/mL Reference Values: > or = 4.0 ng/mL < 4.0 ng/mL suggests folate deficiency Methotrexate, aminopterin and folinic acid (leucovorin) are chemotherapeutic agents whose molecular structures are similar to folate; therefore, the [employer] folate assay cannot be used for patients using these drugs. Leukocytes Stool Qualitative Reviewed date:07/24/2024 12:40:57 PM Interpretation: Performing Lab:[address] [address] Notes/Report: Leukocytes Stool Qualitative NEGATIVE NEGATIVE Calprotectin, Fecal Reviewed date:07/29/2024 04:12:47 PM Interpretation: Performing Lab:[address] [address] Notes/Report: Calprotectin, Fecal 390 Reference Range: <50 [...] borderline values. THIS TEST WAS PERFORMED AT: [facility] [address] [place] [address] BENNIE BEDOLLA MD,PHD,XIOMARA CDiff Gene PCR Reviewed date:07/29/2024 04:12:58 PM Interpretation: Performing Lab:[facility], [address] [place] [phone] Notes/Report: CDiff Gene PCR NEGATIVE Negative If C. difficile strongly suspected despite one negative test, a second test may be sent vs. empiric treatment for C. difficile infection. GI PANEL Reviewed date:07/24/2024 12:40:48 PM Interpretation: Performing Lab:[facility], [address] [place] [phone] Notes/Report: Campylobacter Not Detected Not Detect. Plesiomonas [...] is performed by Multiplexed PCR, utilizing the [employer] Array. Complete Blood Count Auto Di ff Reviewed date:08/19/2024 09:34:23 PM Interpretation: Performing Lab:[facility], [address] [place] [phone] Notes/Report: White Blood Count 5.4 4.8-10.8 X10*3/uL [...] te Reviewed date:08/10/2024 06:09:31 PM Interpretation: Performing Lab:[facility], [address] [place] [phone] Notes/Report: Erythrocyte Sedimentation Rate 38 0-15 MM/HR Patients with polycythemia and many hemoglobin abnormalities may have depressed sed rates whereas patients with anemia may have elevated sed rates. Liver Panel Reviewed date:08/10/2024 06:09:21 PM Interpretation: Performing Lab:[address] [address] Notes/Report: Bilirubin Total 0.3 0.0-1.0 mg/dL Bilirubin Direct 0.1 0.0-0.5 mg/dL Aspartate Amino Transferase 19 5-37 U/L Alanine Aminotransferase 17 0-40 U/L Total Protein 7.3 6.5-8.0 g/dL Albumin Level 3.8 3.5-5.0 g/dL Alkaline Phosphatase 105 39-117 U/L Basic Metabolic Panel Reviewed date:08/10/2024 06:09:03 PM Interpretation: Performing Lab:[facility], [address] [place] [phone] Notes/Report: Sodium 139 135-145 mmol/L Potassium 4.1 [...] PROFILE Reviewed date:08/10/2024 06:08:36 PM Interpretation: Performing Lab:[address] [address] Notes/Report: Iron 12 45-160 mcg/dL Total Iron Binding Capacity 467 228-428 mcg/dL Percent Iron Saturation 3 15-50 % Unsaturated Iron Binding 455 Ferritin Reviewed date:08/10/2024 06:08:18 PM Interpretation: Performing Lab:[address] [address] Notes/Report: Ferritin 7 20-250 ng/mL C Reactive Protein Reviewed date:08/10/2024 06:08:07 PM Interpretation: Performing Lab:[facility], [address] [place] [phone] Notes/Report: C Reactive Protein 0.28 < or = 0.50 mg/dL Vitamin B12 Reviewed date:08/10/2024 04:20:38 PM Interpretation: Performing Lab:[facility], [address] [place] [phone] Notes/Report: Vitamin B12 802 200-900 pg/mL NORMAL 200-900 PG/ML INDETERMINATE 160-199 PG/ML DEFICIENT < 160 PG/ML Pathology Reviewed date:08/30/2024 06:32:21 PM Interpretation: Performing Lab:[facility], [address] [place] [phone] Notes/Report: Complete Blood Count Auto Di ff (Not yet reviewed by provider) Interpretation: Performing Lab:[facility], [address] [place] [phone] Notes/Report: White Blood Count 6.5 4.8-10.8 X10*3/uL [...] PROFILE Reviewed date:09/24/2024 11:13:18 PM Interpretation: Performing Lab:[facility], [address] [place] [phone] Notes/Report: Iron 36 45-160 mcg/dL Total Iron Binding Capacity 424 228-428 mcg/dL Percent Iron Saturation 8 15-50 % Unsaturated Iron Binding 388 Ferritin Reviewed date:09/22/2024 10:10:47 PM Interpretation: Performing Lab:[facility], [address] [place] [phone] Notes/Report: Ferritin 28 20-250 ng/mL Complete Blood Count Auto Di ff (Not yet reviewed by provider) Interpretation: Performing Lab:[facility], [address] [place] [phone] Notes/Report: White Blood Count 5.4 4.8-10.8 X10*3/uL Red Blood Count 4.03 4.60-5.80 X10*6/uL Hemoglobin 10.3 14.0-18.0 g/dl Hematocrit 34.3 42.0-52.0 % Mean Corpuscular Volume 85.1 80.0-98.0 fL Mean Corpuscular Hemoglobin 25.6 27.0-33.0 pg Mean Corpuscular HGB Conc 30.0 31.0-36.0 g/dl Red Cell Distribution Width 25.0 11.0-16.0 % Platelet Count 244 160-400 X10*3/uL Mean Platelet Volume 10.2 9.4-12.4 fL Neutrophils Percent Auto 51.4 45-73 % Imm Gran Pct Auto 0.6 0.0-0.4 % Lymphocytes Percent Auto 29.0 20-40 % Monocytes Percent Auto 12.9 2-11 % Eosinophils Percent Auto 4.6 0-4 % Basophils Percent Auto 1.5 0-2 % NRBC Pct Auto 0.0 0.0-0.2 /100WBC Neutrophils Absolute Auto 2.8 2.0-8.3 x10*3/u L Imm Gran Abs Auto 0.03 0.00-0.03 X10*3/uL Lymphocytes Absolute Auto 1.6 1.2-4.9 X10*3/u L Monocytes Absolute Auto 0.7 0.1-1.2 X10*3/uL Eosinophils Absolute Auto 0.3 0.0-0.4 X10*3/u L Basophils Absolute Auto 0.1 0.0-0.2 X10*3/uL NRBC Abs Auto 0.000 0.0-0.012 X10*3/uL Erythrocyte Sedimentation Ra te (Not yet reviewed by provider) Interpretation: Performing Lab:[address] [address] Notes/Report: Erythrocyte Sedimentation Rate 10 0-15 MM/HR Patients with polycythemia and many hemoglobin abnormalities may have depressed sed rates whereas patients with anemia may have elevated sed rates. Liver Panel (Not yet reviewe d by provider) Interpretation: Performing Lab:[address] [address] Notes/Report: Bilirubin Total 0.4 0.0-1.0 mg/dL Bilirubin Direct 0.1 0.0-0.5 mg/dL Aspartate Amino Transferase 35 5-37 U/L Alanine Aminotransferase 36 0-40 U/L Total Protein 7.2 6.5-8.0 g/dL Albumin Level 4.1 3.5-5.0 g/dL Alkaline Phosphatase 129 39-117 U/L Basic Metabolic Panel (Not y et reviewed by provider) Interpretation: Performing Lab:[address] [address] Notes/Report: Sodium 141 135-145 mmol/L Potassium 4.4 3.3-5.1 mmol/L Chloride 103 96-108 mmol/L Carbon Dioxide 32 22-29 mmol/L Anion Gap 10 12-20 Blood Urea Nitrogen 17 9-16 mg/dL Creatinine 1.27 0.5-1.4 mg/dL Estimated Glomerular Filt Rate > 60 Chronic Kidney Disease: Estimated GFR < 60 mL/min/1.73m2 Severe Kidney Disease: Estimated GFR < 15 mL/min/1.73m2 Glucose Random 92 60-115 mg/dL Calcium 8.8 8.4-10.2 mg/dL IRON PROFILE (Not yet review ed by provider) Interpretation: Performing Lab:[facility], [address] [place] [phone] Notes/Report: Iron 33 45-160 mcg/dL Total Iron Binding Capacity 399 228-428 mcg/dL Percent Iron Saturation 8 15-50 % Unsaturated Iron Binding 366 C Reactive Protein (Not yet reviewed by provider) Interpretation: Performing Lab:[facility], [address] [place] [phone] Notes/Report: C Reactive Protein 0.12 < or = 0.50 mg/dL Reason For Referral No Information Medications Medication [...] W/U Status Risk Notes Problem Rectal bleeding (83935823) Rectal bleeding (K62.5) Active confirmed Problem History of adenomatous polyp of colon (497239531) History of adenomatous polyp of colon (Z86.010) Active confirmed Problem Constipation (43059206) Constipation (K59.00) Active confirmed Problem Diarrhea (60404920) Diarrhea (R19.7) Active con firmed Problem Imaging of gastrointestinal tract abnormal (022076908) Abnormal findings on diagnostic imaging of other parts of digestive tract (R93.3) Active confirmed Problem Helicobacter pylori (52646461) Helicobacter pylori [H. pylori] as the cause of diseases classified elsewhere (B96.81) Active confirmed Problem Diverticular disease of colon (488752336) Diverticulosis of large intestine without perforation or abscess without bleeding (K57.30) Active confirmed Problem Abnormal weight loss (856484695) Abnormal weight loss (R63.4) Active confirmed Problem Duodenitis (03573544) Duodenitis (K29.80) Active confirmed Problem Hemorrhage of rectum and anus (796762635) Rectal bleed (K62.5) Active confirmed Problem Anemia (079673578) Anemia (D64.9) Active confir med Problem Iron deficiency anemia due to chronic blood loss (993267270) 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) Active confirmed Problem Peptic ulcer disease (47679121) Peptic ulcer disease (K27.9) Active confirmed Problem Chronic gastric ulcer (00833320) Chronic gastric ulcer (K25.7) Active confirmed Problem Chronic diarrhea (473096777) Chronic diarrhea (K52.9) Active confirmed Problem Gastric ulcer (337647883) Gastric ulcer (K25.9) Active confirmed Problem Duodenal ulcer disease (41687885) Duodenal ulcer disease (K26.9) Active confirmed Problem Weight decreased (827832567) Loss of weight (R63.4) Active confirmed Problem Gastroesophageal reflux disease with esophagitis (disorder) (035698107) Gastroesophageal reflux disease with esophagitis without hemorrhage (K21.00) Active confirmed Vital Signs Blood pressure diastolic 111 mm Hg 08/30/2024 Height 71 in 08/30/2024 Blood pressure systolic 111 mm Hg 08/30/2024 Weight 174 lbs 08/30/2024 BMI 24.27 kg/m2 08/30/2024 Procedures Procedure Date Ordered Date Performed Result Body Sit e UPPER GI ENDOSCOPY 07/24/2024 N/A COLONOSCOPY 07/24/2024 N/A Encounters Encounter Location Date Provider Diagnosis [facility] Outpatient [address] [place] [phone] 08/23/2024 Waqas Diaz Rectal bleed K62.5 ; 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 [address] [place] [address] 03/01/2024 Waqas Diaz Diarrhea R19.7 ; Chronic gastric ulcer K25.7 ; Helicobacter pylori [H. pylori] as the cause of diseases classified elsewhere B96.81 and History of adenomatous polyp of colon Z86.010 [facility] [address] [place] [address] 08/30/2024 Waqas Diaz Rectal bleed K62.5 ; Iron deficiency anemia due to chronic blood loss D50.0 ; Abnormal weight loss R63.4 ; Gastric ulcer K25.[address] [facility] [address] [place] [address] 02/11/2025 Waqas Diaz Rectal bleeding K62. 5 [facility] [address] [place] [phone] 06/21/2024 Waqas Diaz Diarrhea R19.7 ; Rec keeley bleeding K62.5 and Folate deficiency E53.8 [facility] [address] [place] [phone] 07/04/[address] [facility] [address] [place] [address] 07/24/2024 Waqas Diaz Diarrhea R19.7 ; Rec keeley bleeding K62.5 ; Anemia D64.9 and Peptic ulcer disease K27.9 [facility] [address] [place], [place] [address] [address] 08/21/[address] [facility] [address] [place] [phone] 08/30/[address] [facility] [address] [place] [address] 09/02/[address] [facility] [address] [place] [phone] 11/12/2024 Waqas Diaz Assessments Encounter Date Diagnosis (ICD Code) Assessment Notes Treatment Notes Treatment Clinical Notes Section Notes 08/23/2024 Iron deficiency anemia secondary to blood [...] to keep you advised of his progress. 02/11/2025 Rectal bleeding (ICD-10 - K62.5) 06/21/2024 Rectal bleeding (ICD-10 - K62.5) 06/21/2024 Diarrhea (ICD-10 - R19.7) 07/24/2024 Rectal bleeding (ICD-10 - K62.5) 07/24/2024 Diarrhea (ICD-10 - R19.7) 08/23/2024 Diverticulosis of large intestine without perforation [...] his progress. 07/24/2024 Anemia (ICD-10 - D64.9) 08/23/2024 Other hemorrhoids (ICD-10 - K64.8) 03/01/2024 [...] week treatmernt then stay on omeporazole 20mg residential for now. Overall, Heath currently appears quite [...] 07/24/2024 Peptic ulcer disease (ICD-10 - K27.9) 08/23/2024 Hiatal hernia (ICD-10 - K44.9) 08/30/2024 [...] progress. 06/21/2024 Folate deficiency (ICD-10 - E53.8) 08/23/2024 Gastro-esophageal reflux disease without esophagitis (ICD-10 - K21.9) Plan Of Treatment Pending Test Test Name Order Date UPPER GI ENDOSCOPY 07/24/2024 COLONOSCOPY 07/24/2024 CHEM 7 PROFILE 12/20/2023 CHEM 7 PROFILE 07/24/2024 CHEM 7 PROFILE 11/30/2023 CHEM 7 PROFILE 06/21/2024 CHEM 7 PROFILE 02/11/2025 LIVER PROFILE 11/30/2023 LIVER PROFILE 06/21/2024 LIVER PROFILE 02/11/2025 IRON + IBC (FE) 08/30/2024 IRON + IBC (FE) 02/11/2025 IRON + IBC (FE) 11/30/2023 CRP 06/21/2024 CRP 02/11/2025 CRP 07/24/2024 CRP 11/30/2023 VITAMIN B12 AND FOLATE 11/30/2023 CBC w DIFF 08/30/2024 CBC w DIFF 06/21/2024 CBC w DIFF 11/30/2023 CBC w DIFF 02/11/2025 CBC w DIFF 07/24/2024 SED RATE (ESR) 06/21/2024 SED RATE (ESR) 11/30/2023 SED RATE (ESR) 02/11/2025 SED RATE (ESR) 07/24/2024 STOOL WBC 12/20/2023 CELIAC PANEL #10 11/30/2023 CT ABD & PELVIS WITH CONTRAST 12/20/2023 STOOL WBC 06/21/2024 C DIFFICILE RFLX PCR 12/20/2023 C DIFFICILE RFLX PCR 06/21/2024 Complete Blood Count Auto Diff 5 Complete Blood Count Auto Diff 5 Complete Blood Count Auto Diff 5 Erythrocyte Sedimentation Rate 5 Liver Panel 02/13/2025 Basic Metabolic Panel 02/13/2025 IRON PROFILE 02/13/2025 Ferritin 08/30/2024 Ferritin 02/11/2025 C Reactive Protein 02/13/2025 Folate 06/21/2024 Trypsin 12/20/2023 H pylori Ag Stool 07/24/2024 Giardia Ag Stool EIA 12/20/2023 Pancreatic Elastase-1 12/20/2023 Fecal Fat Qualitative 12/20/2023 Calprotectin, Fecal 07/24/2024 Calprotectin, Fecal 06/21/2024 Calprotectin, Fecal 12/20/2023 Ova and Parasite 12/20/2023 GI PANEL 12/20/2023 GI PANEL 06/21/2024 Future Test Test Name Order Date COLONOSCOPY 11/30/2023 UPPER GI ENDOSCOPY 01/05/2024 Next Appt Details Provider Name:Waqas Diaz , 03/05/2025 10:20:00 AM, [address] [facility] [address], [address], [place], [address], Insurance Providers Payer Name Payer Address Payer Phone Subscriber Number Group Number Insured Name Patient Relationship to Insured Coverage Start Date Coverage End Date [facility] [address] [place] [address] [id number] JOSE WINSLOW Self - patient is the insured Medical (General) History Medical History History ICD Code Mitral valve insufficiency-- scheduled for surgery for a mitral valve repair at [facility] on 04/24/2024--has initially been seeing Dr. Doherty but was then referred to [facility] for his surgery HTN Denies OR,DM,CVA,Lung disease,renal dise ase Chronic diarrhea-colonoscopy as below--negative [...] on 12/[address] scan at [facility]--- this appears to be an incidental finding as he is asymptomatic in that regard-reviewed with patient at the 03/01/24 OV Surgical History Surgery Date(Month/Year)
--- OUTSIDE RECORDS SUMMARY | 2025-02-13 17:18 | XMS_ITS | Encounter Summary ---
Author Organization [facility] Address [address] [place] [address] [place] [phone] Phone Care Team Providers Care Emergency Preparedness Coordinator Name Role Phone Faye Avelar MD Primary Care Provider [phone] Shagufta Bhakta MD, PhD Unavailable [phone] Encounter Details Date Type Department Care Team (Late st Contact Info) Description 09/11/2024 Procedure Pass [facility] [address] [place] [address] Social History Tobacco Use Types Packs/Day Years [...] (Latest Contact Info) Description 02/19/2025 Procedure Pass [facility] PERIOPERATIVE DEPT [address] [place] [address] 02/19/2025 7:30 AM EDT Hospital Encounter [facility] PERIOPER[facility]IVE DEPT [address] [place] [address] Natalie Acosta MD [address] [place] [address] [email or web address] 02/19/2025 7:30 AM EDT - 02/19/2025 2:11 PM EDT Surgery [facility] PERIOPER[facility]IVE DEPT [address] [place] [address] Natalie Acosta MD [address] [address] [email or web address] REPAIR MITRAL VALVE ( tissue ) Scheduled Procedures Name Priority Associated Diagnoses Date/Ti ia ROBOTIC REPAIR MITRAL VALVE Mitral valve prolapse 02/19/2025 7:30 AM EDT documented as of this encounter Visit Diagnoses Not on filedocumented in this encounter Care Teams Emergency Preparedness Coordinator Relationship Specialty Start Date End Date Faye Avelar MD [address] [facility] [place] [address] PCP - General Internal Medicine 09/19/23 Shagufta Bhakta MD, PhD [address] [place] [address] [address] [place] [address] [email or web address] Director Of Restaurant Interventional Cardiology 10/11/23 documented as of this encounter Additional Source Comments The information contained in this document represents components of the legal health record. It is not the complete legal health record.[facility]
== END 2025-02-13 14:42 | disposition home or self-care (01) ==
LOC: HO.LAB 14:41
PROVIDERS: PCP Internal Medicine; Visit Provider Internal Medicine
DX: K62.5 Hemorrhage of anus and rectum (principal)
CPT/HCPCS: 36415; 80048; 80076; 82728; 83540; 85025; 85652; 86140

== ENCOUNTER 2025-03-01 09:49 | Outpatient (AMB) | payer BC, SELFPAY ==
--- OUTSIDE RECORDS SUMMARY | 2024-08-09 10:00 | XMS_ITS ---
Author Organization [facility] Address [address] [place] [address] Care Team Providers Care Transit Bus Driver Name Role Phone Valentino HATCH, Faye Primary Care Provider Waqas Cash [phone] Encounters Encounter Location Date Provider Diagnosis [facility] [place] [address] [place], [place] [id number] 08/09/2024 Waqas Diaz Plan Of Treatment Next Appt Details Provider Name:Waqas Diaz , 03/05/2025 10:20:00 AM, [address], [address], [place], [address], Progress Notes * JOSE WINSLOWDOB: [birth year] (50 yo M)Acc No.[id number]:08/09/2024 COLON WITH MAC Patient: Codey MCGEE JOSE Baez Provider: Jimena Diaz MD :1975 A ge:49 Y S ex:Male Date:08/09/2024 Address:[address] [id number] Pcp:Faye Avelar MD Subjective: * Chief Complaints: [...] 08/09/2024 Generated for Blanca lou/Ariel/Mally on: 1 10:36 AM EDT
--- OUTSIDE RECORDS SUMMARY | 2024-08-23 10:30 | XMS_ITS ---
Author Organization [facility] Address [address] [place] [address] Care Team Providers Care Air Sealing Technician Name Role Phone Valentino HATCH, [facility] Primary Care Provider Waqas Cash [phone] REASON FOR VISIT diarrhea,anemia, rectal bleeding ,peptic ulcer Encounters Encounter Location Date Provider Diagnosis [facility] [address] [place] [address] [id number] 08/23/2024 Waqas Diaz Rectal bleed K62.5 ; [...] Name:Waqas Diaz , 03/05/2025 10:20:00 AM, [address], [address], [place], [address], Progress Notes * JOSE WINSLOW JDOB: [birth year] (50 yo M)Acc No.[id number]:08/23/2024 EGD and COL/MAC Patient: JOSE CHING Provider: Jimena Diaz MD :[id number] A ge:49 Y S ex:Male Date:08/23/2024 Address:[address] [place] [address] [id number] Pcp:Faye Avelar MD Subjective: * Chief Complaints: [...] Procedure Codes: 4 5380 COLONOSCOPY AND BIOPSY, 41190 UPPER GI ENDOSCOPY, BIOPSY * * The named appointment provid er may or may not be the originator of this progress note, and it is not deemed complete until electronically signed by the appointment provider. Sign off status: Pending * Provider: Jimena Diaz MD Date: 0 08/23/2024 Generated for Blanca lou/Ariel/eTransmitting on: 1 10:35 AM EDT
--- OUTSIDE RECORDS SUMMARY | 2025-02-11 06:07 | XMS_ITS ---
Author Organization [facility] Address [address] [facility] [address] [place] [phone] Care Team Providers Care Project Builder Name Role Phone Valentino HATCH, Asma Primary Care Provider Waqas Cash [phone] Results Component Value Reference Range Notes Ferritin Reviewed date:02/14/2025 12:29:57 PM Interpretation: Performing Lab:[facility], [address] [place] [id number] Notes/Report: Ferritin 89 20-250 ng/mL REASON FOR VISIT blood in stool Encounters Encounter Location Date Provider Diagnosis [facility] [address] [place] [phone] 02/11/2025 Waqas Diaz Rectal bleeding K62.5 Assessments Encounter Date Diagnosis (ICD Code) Assessment Notes Treatment Notes Treatment Clinical Notes Section Notes 02/11/2025 Rectal bleeding (ICD-10 - K62.5) Plan Of Treatment Pending Test Test Name Order Date CHEM 7 PROFILE 02/11/2025 LIVER PROFILE 02/11/2025 IRON + IBC (FE) 02/11/2025 CRP 02/11/2025 CBC w DIFF 02/11/2025 SED RATE (ESR) 02/11/2025 Next Appt Details Provider Name:Waqas Diaz , 03/05/2025 10:20:00 AM, [address], [address], [place], [address], Progress Notes * JOSE WINSLOWDOB: [birth year] (50 yo M)Acc No.[id number]:02/11/2025 Patient: JOSE CHING :1975 A ge:49 Y S ex:Male Address:[address] [place] [address] [place], [address] Subjective: * Chief Complaints: * B lood in stool * Medical History: * Surgical History: * Hospitalization/Major Diagno stic Procedure: * Medications: Objective: * Vitals: * Physical Examination: Assessment: * Assessment: 1. R ectal bleeding - K62.5 (Primary) Plan: * Treatment: Value Reference Range F erritin 89 20-250 - ng/mL * Procedure Codes: * * Date:
--- OUTSIDE RECORDS SUMMARY | 2025-02-19 05:33 | XMS_ITS | Encounter Summary ---
Author Organization [facility] Address [address] [place] [id number] Phone Care Team Providers Care Osd Clerk Name Role Phone Faye Avelar MD Primary Care Provider [phone] Shagufta Bhakta MD, PhD Unavailable [phone] Waqas Diaz MD Unavailable [phone] Reason for Visit * Auth/Cert (Routine) Specialty Diagnoses / Procedures Referred By Contac t Referred To Contact Diagnoses Mitral valve prolapse Mitral Valve Prolapse Procedures AL MITRALPLASTY W CP BYPASS AL MITRALPLASTY W CP BYPASS ROBOTIC REPAIR MITRAL VALVE ( tissue ) Referral ID Status Reason Start Date Expiration Date Visits Re quested Visits Authorized [id number] 1 1 Encounter Details Date Type Department Care Team (Latest Contact Info) Description 02/19/2025 5:33 AM EDT - 02/26/2025 11:18 AM EDT Hospital Encounter [facility] [place] [address] [place] [address] [phone] Natalie Acosta MD [address] [address] [email or web address] Discharge Disposition: Home or Self Care Social History Tobacco Use Types Packs/Day Years [...] with a working camera? Not on file Intimate Partner Violence Answer Date R ecorded Are you denied basic needs s uch as food, clothing, or medical care? No 02/19/2025 In the past 12 months have y ou been in a relationship with a person who hurts, threatens, or tries to control you? No 02/19/2025 Are you denied basic needs s uch as food, clothing, or medical care? No 02/19/2025 In the past 12 months have y ou been in a relationship with a person who hurts, threatens, or tries to control you? No 02/19/2025 Sex and Gender Information Value Date Recorded Sex Assigned at Male 09/19/2023 2:01 PM EDT Legal Sex Male 1:58 PM EDT Gender Identity Male 09/19/2023 2:01 PM EDT Sexual Orientation Straight 09/19/2023 2: 01 PM EDT documented as of this encounter Last Filed Vital Signs Vital Sign Reading Time Taken Comments Blood Pressure 115/71 02/26/2025 9:33 AM EDT Pulse 71 02/26/2025 9:33 AM EDT Temperature 35.9 C (96.6 F) 02/26/2025 7:24 AM EDT Respiratory Rate 18 02/26/2025 9:00 AM EDT Oxygen Saturation 95% 02/26/2025 7:24 AM EDT Inhaled Oxygen Concentration 30% 02/19/2025 5 :08 PM EDT Weight 80.3 kg (177 lb) 02/26/2025 1:46 AM EDT Height 180.3 cm (5' 10.98 ) 02/20/2025 10:30 PM EDT Body Mass Index 24.7 02/20/2025 10:30 PM EDT documented in this encounter Functional Status * Calculated C-SSRS Risk Score (Lifetime/Recent) Answer Date of Assessment Author No Risk Indicated 02/19/2025 6:00 PM EDT John Mohamud RN * [place] Suicide Severity Rating Scale (Screener/Recent Self-Report) Question Answer Date of Assessment Author 1. Wish to be (Past 1 Month) No 025 6:00 PM EDT John Mohamud RN 2. Non-Specific Active Suici morena Thoughts (Past 1 Month) No 02/19/2025 6:00 PM EDT Neymar Mohamud RN 6. Suicidal Behavior (Lifetime) No 6:00 PM EDT John Mohamud RN documented as of this encounter Discharge Instructions * Discharge Instructions* Rj Darby PA-C - 02/20/2025 7:33 AM EDT You underwent robotic mitral valve repair (32mm Physio 1 Ring) by Dr. Acosta on 02/19/25 --- ELIQUIS - Take Eliquis 5mg twice a day for Atrial Fibrillation. Duration: 3 months. After 3 months discuss whether to continue taking Eliquis with your appliance service representative. - Prior to starting any new medications, vitamins, and/or supplements, contact your PCP/Yarn Man to discuss whether they will interfere with Eliquis (i.e increase risk of bleeding and/or clotting, such as Ibuprofen). AMIODARONE - Amiodarone for Atrial Fibrillation. - Take 200mg daily for 30 days. VALVE INFECTION PROPHYLAXIS - Antibiotics will be required prior to undergoing any dental or invasive procedure to prevent infection of your valve. Please discuss this with both PCP and dentist. - Avoid elective dental work for the next 6 months. TORSEMIDE - Take 20 mg of Torsemide along with the potassium supplement daily for 10 days - Document daily weights at the same time every day on the same scale - Call the cardiac surgery office or your primary care if you note a change in weight of greater than 3 lbs in one day or 5 lbs in one week, or if you note worsening lower extremity swelling or shortness of breath, as your dose may need to be adjusted or resumed. - Follow up with your primary care provider in the next few weeks for repeat labs (BUN, creatinine,electrolytes) and further dosing instructions. ACTIVITY RESTRICTIONS (MINI-THORACOTOMY) - Driving OK after 10-14 days. No driving while taking narcotics - No excessive right arm motion, heavy lifting for 6 weeks. INCISION - Monitor wounds for signs of infection including redness, drainage, swelling, and fevers. - Do not put any lotions or creams on incision. - Your steri strips can be removed on post-op day 14. If they have not fallen off by then, you can gently remove them in the shower. - Showering is permitted, but no tub baths or swimming until incision is completely healed. FOLLOW UP - You will follow up with your cardiac surgeon in 4-6 weeks. Please arrive 1 hour prior to your appointment for a chest x-ray. An order for the x-ray has been placed in the computer. You can go to the following location on [facility] Main [place] to have it done (this is a walk-in, no appointment is made):[facility], [address] (Tuesday-Tuesday 7:30am-6pm) - You should call your PCP and/or appliance service representative to schedule an appointment in the next 1-2 weeks forpost-hospitalization follow up. - Cardiac Rehab: You will be cleared to attend cardiac rehab by your surgeon. After you are cleared, call your appliance service representative to have a cardiac rehab referral placed (does not need to be at [facility]; anywhere closest to home and convenient is best). Please discuss with your Yarn Man whether you need astress test ordered before beginning cardiac rehab. Please note that your medications have changed. Please take the medications as listed in these discharge instructions until following up with PCP or appliance service representative. You were given a 30 day supply of medications with 2 refills. When you are approaching 90 days, you will need to reach out to your PCP or appliance service representative for refills. Do not hesitate to call the surgeon's office at [phone] with questions or concerns, the officeis open 8AM to 5PM Tuesday through Tuesday. After 5pm and on weekends/holidays patients should not hesitate to reach out to the cardiac surgeryfellow environmental compliance engineer. They should call [phone] and ask to have the resident/attending paged. [facility] Imaging Locations: [facility] Outpatient Imaging Locations - [facility], [address] [place] [address], - [facility] - [address] [place], [place] [phone] - [address] - [address] [place] [place], [place], - [facility] [place], [address] [place], [place], - [facility] General Imaging - [place], [address] [place], [place], - [facility] - [place], [address], [place] [phone] - [facility] - [address] [place], [place], - [facility] - [address] [place], [place], - [facility] - [address] [facility], - [facility] - [address], [place], [facility] Outpatient Imaging - [facility] - [address], [place], - [facility] Rad[facility] - [address], [place], [place] [phone] - [facility] [place] - [address], [place] [phone] [place] Outpatient Imaging - [place] (Urgent Care) - [address] [place], [place] [phone] - [place] - [address] [place], [place] [phone] [facility] (Urgent Care) - [address] [place], [place] [phone] - [place] - [address] [place], [place] [phone] [facility] Outpatient Imaging - [facility], [address] [facility], - [facility], [address] [facility] [phone] - [facility], [address] [facility] ([facility] [phone] - [facility], [address] [place] [address] ([address]), [facility] [phone] [facility] Outpatient Imaging - [address] [place], [place], - [address] [place], [place], - [address] [facility] [facility], 1st floor, [place], [place], - [address] , [place], [place], [facility] - [address] [place], [place] [phone] - [address] [place] [address] * Provider Post Hospital Follow Ups* Rj Darby PA-C - 02/20/2025 7:38 AM EDT Cardiac: - Procedure: robotic mitral valve repair (32mm Physio 1 Ring) by Dr. Acosta on 02/19 - ASA 325 for 3 months for valves. Then OK to drop down to 81 - Beta-blockade: Toprol XL 25mg BID. - One episode of postoperative atrial fibrillation, given oral Lopressor and IV amio bolus x1 with 4 second conversion pause. - Amiodarone for Atrial Fibrillation. Received 0.75g load inpatient. Discharged on 200mg daily x 30days. - Sternal Precautions x 6 weeks (no pushing, pulling or lifting more than 10 lbs) Eliquis - Eliquis for Atrial Fibrillation. Duration 3 months. After 3 months evaluate need for continued anticoagulation. - Avoid any other medications/supplements that can thin the patients blood Torsemide: - Pt is 9 lb. above preop weight of 168lb with Small bilateral pleural effusions on CXR. Instructedto take 20 mg of Torsemide along with the potassium supplement daily for 7 days . - Please monitor BMP, CXR and fluid status for need to adjust/continue this regimen. Infection Prophylaxis: - Pt will require antibiotics prior to undergoing any dental or invasive procedure to prevent infection of the valve. - Avoid elective dental work for the next 6 months. Follow up: - Patient will follow up with the cardiac surgery team in ~4 weeks. - Order has been placed in the computer for the patient to have a chest x-ray prior to presenting to their cardiac surgery post-op visit - Cardiology follow up with Shagufta Bhakta MD, PhD - Eligible for Cardiac Rehab at 6 weeks postop. Will need to be referred by Yarn Man. May need stress test clearance. - Patient provided with 30 day rx for medications with 2 refills. After 90 days has completed, patient will need refills from PCP or appliance service representative. * Attachments The following attachments cannot be sent through Care Everywhere. * Mitral Valve Repair: Post op (Uzbek) * Thoracotomy: Post op (Uzbek) * Antibiotics to Prevent Bacterial Endocarditis (PCOI) documented in this encounter Medications at Time of Discharge acetaminophen (TYLENOL) 325 mg tablet Take 1-2 tablets (325-650 mg total) by mouth 3 (three) times a day. 02/26/2025 amiodarone (PACERONE) 200 MG tablet Take 1 tablet (200 mg total) by mouth daily. 30 tablet 02/26/2025 5 apixaban (ELIQUIS) 5 mg tablet Take 1 tablet (5 mg total) by mouth 2 (two) times a day. 60 tablet 2 02/26/2025 6 aspirin 325 MG tablet Take 1 tablet (325 mg total) by mouth daily. 30 tablet 2 02/27/2025 6 cyanocobalamin, vitamin B-12, 250 mcg Lozg 2 lozenges Orally Once a day for 30 day(s) folic acid (FOLVITE) 1 MG tablet Take 1 tablet by mouth every morning. 12/05/2023 lidocaine 4 % Place 2 patches onto the skin daily. 02/26/2025 metoprolol succinate (TOPROL-XL) 25 MG 24 hr tablet Take 1 tablet (25 mg total) by mouth 2 (two) times a day. 60 tablet 2 02/26/2025 omeprazole (PRILOSEC) 40 MG capsule Take 1 capsule by mouth daily. 01/18/2024 oxyCODONE 5 MG immediate release tablet Take 0.5-1 tablets (2.5-5 mg total) by mouth every 8 (eight) hours as needed for pain (specific location in comments). Partial fill ok for acute post operative pain. Do not drive while taking, do not combine with alcohol or other narcotics 18 tablet 02/26/2025 potassium chloride SA (KLOR-CON M20) 20 MEQ ER tablet Take 1 tablet (20 mEq total) by mouth daily for 7 days. 7 tablet 02/26/2025 5 senna (SENOKOT) 8.6 mg tablet Take 1 tablet by mouth 2 (two) times a day for 7 days. To prevent constipation 14 tablet 02/26/2025 5 torsemide (DEMADEX) 20 MG tablet Take 1 tablet (20 mg total) by mouth daily for 7 days. 7 tablet 02/26/2025 5 documented as of this encounter Progress Notes Only the most recent of 31 notes is shown. * Harvey Wall RN - 02/26/2025 9:12 AM EDT Case Management - Progress Note 02/26/25911 Discharge Planning Evaluation Patient/Family/Caregiver discharge preference/goals Home Patient/Family/Caregiver participated and agreed with DC plan Yes Discharge Plan Expected Discharge Disposition Home Mode of DC Transportation Family member pick-up (comment) Discharge address same as facesheet Yes Who will be available at discharge to receive the patient? Spouse/partner Case Management Note: Discharge Communication summary: Per team, patient is medically ready for discharge home today without services. Expected Discharge Date: 02/26/25 Transportation: Medicare Part B pays for ambulance transportation only if other means of transportation would endanger the beneficiary's health or if the patient is on specific precautions. Medicaid will reimburse for Chair Car services only when the use of any other method of transportation is cont raindicated by the patient's condition. The patient may incur a bill for transportation expenses, and this has been discussed with patient or their designee. Case management was available throughout the patient's hospitalization and conducted a medical record review, discussed patient's clinical progress and discharge planning needs with the treatment team. Patient does not require post- acute services. Discharge Planning is conducted as outlined in the Code of Federal Regulations- Conditions of Participation for Hospitals under Title 42, Part 482, specifically Discharge Planning, 482 C.F.R. ?? 482.43 (2023). Harvey Wall RN documented in this encounter H&P Notes * Dalia Warner MD - 02/19/2025 7:15 AM EDT H&P reviewed. The patient was examined and there are no changes to the H&P. Source Note - Hilda Renettachino Montes CNP - 02/05/2025 10:00 AM EDT Images from the original note were not included. Patient Name: Jose Winslow Date of Service: 02/05/25 PCP: Faye Avelar MD Yarn Man: Ralf Bhakta Cardiac Surgeon: Dr. Acosta Surgical Procedure: Robotic Mitral Valve Repair (Robotic approach) Vs Replacement (Tissue). Surgical Date: 02/19/25 History of Present Illness: Jose Winslow is a 49 y.o. male with history of chronic diarrhea (undergoing a workup), former smoker (quit 2 weeks ago), HTN, peptic ulcer, iron deficiency anemia Cardiac history includes mitral regurgitation.with BRBPR, and severe mitral regurgitation. He was first diagnosed with MR after a new murmur was appreciated on physical exam about a year ago. A subsequent echo demonstrated severe MR in the setting of posterior leaflet flail. He was initially evaluated by my partner. Dr. Acosta, and had surgery planned for early June. However, due to a patient illness and an unforseen medical leave this was rescheduled. He had a surgical consultation with Dr. Acosta on 01/28/24 Patient also had a telemedicine with Dr. Fulton in consultation on 07/31/24. Surgical options and associated risks and benefits were discussed, and as a result, surgery was scheduled. Today patient reports SOB that has worsened in the past several months. He does experience occasional dizziness and lightheadedness that last several minutes and resolve on their own. He is also reports experiencing increased fatigue. He denies fevers, chills, cough, CP, palpitations,, orthopnea, PND, lightheaded/dizziness, syncope or LE edema. Medical History: PMH PSH Past Medical History: Diagnosis Date Gastroesophageal reflux disease Hypertensive disorder Mitral valve disease Patient Active Problem List Diagnosis Nonrheumatic mitral valve regurgitation Chronic diarrhea Abnormal weight loss Rectal bleeding Hemorrhage of rectum and anus Helicobacter pylori (H. pylori) as the cause of diseases classified elsewhere Gastroesophageal reflux disease with esophagitis Chronic gastric ulcer Anemia No past surgical history on file. 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 Family History Problem Relation Age of Onset Coronary artery disease Maternal Grandmother Allergies No Known Allergies Current Medications Current Outpatient Medications Medication Instructions atenolol (TENORMIN) 25 mg, Oral, Daily cholecalciferol (VITAMIN D3) 1,000 Units, Oral, Daily cyanocobalamin, vitamin B-12, 250 mcg Lozg 2 lozenges Orally Once a day for 30 day(s) folic acid (FOLVITE) 1 MG tablet 1 tablet, Oral, Every morning LOMOTIL 2.5-0.025 mg per tablet 1 tablet, Oral, 4 times daily PRN omeprazole (PRILOSEC) 40 MG capsule 1 capsule, Oral, Daily valsartan (DIOVAN) 40 mg, Oral, Daily Review of Systems: 10 point review of systems negative, except what is listed below: ROS Constitution: Negative. HENT: Negative. Eyes: Negative. Reading/driving glasses Cardiovascular: Per HPI Respiratory: Had an URI 12/2024 was prescribed a Z-Pack but patient did not take, symptoms resolved Endocrine: negative Hematologic/Lymphatic: Negative. Skin: Negative. Musculoskeletal: Negative. Gastrointestinal: please see plan, continues to have abdominal cramping but it is improved. He was diagnosed with internal/external hemorrhoids has been using colace with good results Genitourinary: Negative. Neurological: Negative. Psychiatric/Behavioral: Anxious regarding upcoming surgery; will follow up with his PCP regarding short course of ativan to manage preoperative anxiety Allergic/Immunologic: Negative. Physical Exam/ Objective: 1313 Vitals Heart Rate 53Heart Rate. 53. Data is abnormal. Taken on 02/05/25 1313 BP 120/64BP. 120/64. Has comment. Taken on 02/05/25 1313 BP Method Manual Patient Position Sitting BP Location Left arm Cuff Size Medium Respiratory Rate 16 Temperature 36.3 ??C (97.4 ??F) Temp Source Temporal Measurements Height 180.3 cm (5' 11 ) Height Method Reported Weight 76.567 kg (168 lb 12.8 oz) Weight Method Standing Scale BMI (Calculated) 23.55 Constitutional: General: No acute distress noted. HENT: Head: Normocephalic and atraumatic. Mouth/Throat: Mouth: Mucous membranes are moist. Pharynx: Oropharynx is clear. No oropharyngeal exudate or posterior oropharyngeal erythema. Comments: Teeth in good condition Hearing: normal Eyes: General: No scleral icterus. Extraocular Movements: Extraocular movements intact. Conjunctiva/sclera: Conjunctivae normal. Pupils: Pupils are equal, round, and reactive to light. Neck: Vascular: No carotid bruit or JVD. Cardiovascular: Normal S1, physiologically split S2? Rate and Rhythm: Normal rate and regular rhythm. Pulses: Normal pulses. Heart sounds: III/ murmur Comments: UE/LE pulses 2+ throughout Pulmonary: Effort: Pulmonary effort is normal. Breath sounds: Normal breath sounds. Abdominal: General: Abdomen is flat. Bowel sounds are normal. There is no distension. Palpations: Abdomen is soft. There is no mass. Tenderness: There is no abdominal tenderness. Musculoskeletal: General: No swelling or tenderness. Normal range of motion. Cervical back: Normal range of motion and neck supple. Vascular Right lower leg: No edema. No varicose veins Left lower leg: No edema. No varicose veins Lymphadenopathy: Cervical: No cervical adenopathy. Skin: General: Skin is warm and dry. Findings: No lesion or rash. Neurological: General: No focal deficit present. Mental Status: She is alert and oriented to person, place, and time. Psychiatric: Behavior: Behavior normal. Thought Content: Thought content normal. Comments: Extremely anxious Imaging Cors CTA at [facility] on 12/29/23 (EPIC) CAD-RADS 0 : No coronary plaque or stenoses. Mitral valve prolapse. Patent aorta and iliac arteries are not tortuous and are without circumferential calcifications. 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 Mild enhanicng fundal wall thickening (up to 4mm) with minimal pericholecystic fluid TTE 10/04/23 [facility] Asc Ao 27 mm, Ao sinus 33 mm, LVIDd 55 mm, LVIDs 36 mm, IVS 9 mm, LA 40 mm, EF 65% LV - normal , EF 65% RV - normal LA - normal AV - normal, trace AR MV - posterior MV prolapse, flail of the posterior MV leaflet with associated chordal rupture. Severe MR TV - trace TR Assessment and Plan: PPE Check List [x] T&S, CBC w diff, CMP, PT/INR, PTT, HgbA1C, MSSA/MRSA nasal swab, CXR, EKG pending. [x] Hibiclens wash supplied, verbal and written instructions provided. [x] MRSA/MSSA nasal swab pending, will call patient with instructions if positive. [x] ICU bundle consent signed and scanned into media tab. [x] Surgical electronic consent signed by EMERGENCY PREPAREDNESS COORDINATOR/patient and will be signed by surgeon. [x] Health Care Proxy reviewed and scanned into media tab. [] Dental clearance scanned into media tab.PENDING [x] Medication instructions reviewed and scanned into media tab. Preop Imaging [x] Coronary Evaluation [x] TTE Cardiac - Robotic assisted, minimally invasive mitral valve repair (Tissue) -GI EGD/Consult 08/23/[address] Fern Diaz Small hiatal hernia and minimal GERD Healed peptic ulcer disease, rule out Helicabacter pylori Colonoscopy Occasional sigmoid diverticulitis Internal and external hemorrhoids Plan Omeprazole for h/o peptic ulcer disease Bentyl for abdominal cramping Repeat colonoscopy in 5 years. He has received 3 iron infusions with a 4th scheduled on 02/07/25. H/o iron deficiency iron Previously on Iron supplements which patient stopped on his own. Discharge Planning - Post op caregiver: - Independent at baseline, no assistive devices or prior rehab stays. 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 -Patient is currently out of work. Pre op instructions, medications and hospital course discussed at length with patient, written handouts provided. Patient aware to contact us with any changes in current medical condition prior to surgical date. Renetta Stevens CNP [facility] Cardiac Surgery documented in this encounter Procedure Notes Only the most recent of 2 notes is shown. * Natalie Acosta MD - 02/19/2025 2:00 PM EDT Brief Operative Note Patient Name: Jose Winslow Date of Surgery: 02/19/2025 Surgeon: Natalie Acosta MD Public Housing Manager: Javy Chamberlain PA-C Fellow: Dalia Warner MD Pre-Op Diagnosis Codes: * Mitral valve prolapse [I34.1] Post-Op Diagnosis Codes: * Mitral valve prolapse [I34.1] Heart Failure (NYHA Classification): Class I Heart Failure timing: Chronic Heart Failure type: Systolic Procedure(s): ROBOTIC REPAIR MITRAL VALVE (32 mm Physio 1 Ring) Implant: Implant Name Type Inv. Item Serial No. Ambulance Officer Lot No. [id number] No. Used Action RING ANNULOPLASTY 32MM MITRAL MITCH GUERRA ELIGOY BAND SILICONE RUBBER POLYESTER COVER - [id number] RING ANNULOPLASTY 32MM MITRAL MITCH GUERRA ELIGOY BAND SILICONE RUBBER POLYESTER COVER [id number] PrematicsCIENCES Left 1 Implanted Primary Incision: Right mini-thoracotomy Hearse Driver: Colin Layne MBBS Tile Layer Helper: Maria De Jesus Aparicio DO Anesthesia Type: General Bypass Time: 270 min Aortic Cross Clamp Time: 165 min Cooled To: 30 C Specimens: ID Type Source Tests Collected by Time Destination 1 : P2 Chord and leaflet Cardiovascular Tissue Heart Valve, [place] Mitral Chord TISSUE EXAM Natalie Acosta MD 02/19/2025 [id number] Drains: Right pleural chest tube, right pericardial Walter drain Estimated Blood Loss: 500 cc Disposition: Cardiac Surgical ICU Natalie Acosta M.D. Cardiac Surgery documented in this encounter Nursing Notes Only the most recent of 3 notes is shown. * Shelby Brown - 02/26/2025 10:08 AM EDT A&Ox3. DURAN. Cooperative with care Afebrile. Surgical pain managed with nidhi tylenol and PRN oxycodone. Pt in NSR 60-70s w/ occ PVCs, AF on 02/25, rates 90s- 130s. Hx of 4 sec conversion pause SBP 100-115. Pt denies lightheadedness, CP, dizziness. Continues on 25 mg Toprol BID. +PP. SpO2 >95% onRA. Denies SOB/dyspnea. IS encouraged. Abd soft; rounded/NT. +BSx4. LBM 02/25, colace administered. Pt reports straining. Voiding CYU in bathroom/urinal. Torsemide BID. Mini robo sites on upper right chest MARYBEL CDI with steris. Significant ecchymosis to the R side/flank area. Otherwise skin intact. OOB independent, gait steady. All discharge studies and education completed. Pt d/c home today. documented in this encounter Miscellaneous Notes * Hospital Course - Rj Darby PA-C - 02/20/2025 7:36 AM EDT HOSPITAL COURSE: Mr. Winslow was admitted to [facility] on 02/19/2025 and underwent robotic mitral valve repair (32mm Physio 1 Ring) with Dr. Natalie Acosta. Intra-operative course was unremarkable. An intraoperative transesophageal echocardiogram showed the mitral valve, status post complete annuloplasty ring, in a stable positive, peak and mean gradients 5mmHg and 7mmHg respectively, trace valvular regurgitation. The procedure was tolerated well and the patient was transferred to the Cardiac Surgery ICU in stable condition. Patient weaned from sedation, awoke neurologically intact, and was extubated. Vasopressors were weaned, and beta blockade was started. Aspirin was started. He required a lasix drip for diuresis. He remained on dobutamine for RV dysfunction until postoperative day three. He was transitioned to IV Lasix, and ultimately PO lasix. On postoperative day three, patient was transferred to the cardiac surgery step down unit for further care and recovery. On 02/23 he went into atrial fibrillation for about 5 hours. He endorsed lightheadedness and dizziness. He was started oral beta blockade and given IV amio bolus x1. He converted back to sinus rhythm with 4 second conversion pause. He continued in sinus rhythm and low dose beta blockade was resumed cautiously. Overnight on 02/24 - 02/25 he went into atrial fibrillation, he was asymptomatic and hemodynamically stable. He was started on low dose oral Amiodarone and was started on Eliquis for anticoagulation. His rhythm continued to be monitor, he had no further conversion pauses. He was in sinus rhythm upon discharge. Patient was diuresed towards preoperative weight and worked with nursing to regain strength and mobility. On postoperative day seven, patient was discharged home. Patient will follow up with the Cardiac Surgery Nurse Practitioner in Dr. Acosta's office as an outpatient. If there are any questions or concerns prior to then, please reach out to Dr. Acosta's office directly at [phone], option 2. Quality Clinical Documentation:{The following information has been identified from automated chart review of the hospitalization. Please remove anything that is incorrect. (these instructions will automatically disappear when the note is signed.):[id number]} documented in this encounter Plan of Treatment Upcoming Encounters Date Type Department Care Team (Late st Contact Info) Description 04/03/2025 11:30 AM EST Office Visit [facility] [place] Division of Cardiac Surgery [address] [place] [address], 6th Floor, [address] [place] [address] Natalie Acosta MD [address] [place] [id number] [email or web address] 04/03/2025 1:30 PM EST Office Visit [facility] [address], 5th Floor, [address] [place] [address] Shagufta Bhakta MD, PhD [address] [facility] [address] [place] [address] [email or web address] Scheduled Orders Name Type Priority Associated Diagnoses Orde r Schedule XR Chest Imaging Routine Mitral valve insufficiency, unspecified etiology Expected: 03/23/2025, Expires: 08/21/2025 documented as of this encounter Procedures Procedure Name Priority Date/Time Associated Diagnosis Comments CBC Routine 02/26/2025 6:04 AM EDT TYPE AND SCREEN (ABO,RH,ANTIBODY SCREEN) Routine 02/26/2025 6:04 AM EDT MAGNESIUM Routine 02/26/2025 6:04 AM EDT BASIC METABOLIC PANEL Routine 02/26/2025 6:04 AM EDT XR CHEST PA AND LATERAL 2 VIEWS Routine 02/25/2025 3:36 PM EDT CBC Routine 02/25/2025 3:55 AM EDT MAGNESIUM Routine 02/25/2025 3:55 AM EDT BASIC METABOLIC PANEL Routine 02/25/2025 3:55 AM EDT MAGNESIUM Routine 02/24/2025 4:10 AM EDT BASIC METABOLIC PANEL Routine 02/24/2025 4:10 AM EDT CBC Routine 02/24/2025 4:00 AM EDT MAGNESIUM Routine 02/23/2025 5:21 PM EDT BASIC METABOLIC PANEL Routine 02/23/2025 5:21 PM EDT XR CHEST PA AND LATERAL 2 VIEWS Routine 02/23/2025 5:45 AM EDT CBC Routine 02/23/2025 4:58 AM EDT MAGNESIUM Routine 02/23/2025 4:58 AM EDT BASIC METABOLIC PANEL Routine 02/23/2025 4:58 AM EDT ECG 12-LEAD Routine 02/23/2025 4:45 AM EDT XR CHEST PORTABLE Routine 02/22/2025 11: 45 AM EDT MAGNESIUM Routine 02/22/2025 7:37 AM EDT LACTIC ACID (LACTATE) Routine 02/22/2025 7:37 AM EDT BASIC METABOLIC PANEL Routine 02/22/2025 7:37 AM EDT XR CHEST PORTABLE Routine 02/22/2025 5:1 7 AM EDT TYPE AND SCREEN (ABO,RH,ANTIBODY SCREEN) Routine 02/22/2025 1:47 AM EDT LFTS (HEPATIC PANEL) Routine 02/22/2025 1:43 AM EDT PTT Routine 02/22/2025 1:43 AM EDT PT-INR Routine 02/22/2025 1:43 AM EDT CBC Routine 02/22/2025 1:43 AM EDT PHOSPHORUS Routine 02/22/2025 1:43 AM EDT MAGNESIUM Routine 02/22/2025 1:43 AM EDT BASIC METABOLIC PANEL Routine 02/22/2025 1:43 AM EDT PHOSPHORUS Routine 02/21/2025 3:17 PM EDT MAGNESIUM Routine 02/21/2025 3:17 PM EDT BASIC METABOLIC PANEL Routine 02/21/2025 3:17 PM EDT CREAT. COMMENT Routine 02/21/2025 9:42 AM EDT PHOSPHORUS Routine 02/21/2025 9:42 AM EDT MAGNESIUM Routine 02/21/2025 9:42 AM EDT BASIC METABOLIC PANEL Routine 02/21/2025 9:42 AM EDT CREAT. COMMENT Routine 02/21/2025 2:06 AM EDT LFTS (HEPATIC PANEL) Routine 02/21/2025 2:06 AM EDT PTT Routine 02/21/2025 2:06 AM EDT PT-INR Routine 02/21/2025 2:06 AM EDT CBC Routine 02/21/2025 2:06 AM EDT PHOSPHORUS Routine 02/21/2025 2:06 AM EDT MAGNESIUM Routine 02/21/2025 2:06 AM EDT BASIC METABOLIC PANEL Routine 02/21/2025 2:06 AM EDT XR CHEST PORTABLE Routine 02/20/2025 10: 18 PM EDT CREAT. COMMENT Routine 02/20/2025 8:30 PM EDT ARTERIAL BLOOD GAS PLUS Routine 02/20/2025 8:30 PM EDT LACTATE (BLOOD GAS) Routine 02/20/2025 8 :30 PM EDT PHOSPHORUS Routine 02/20/2025 8:30 PM EDT MAGNESIUM Routine 02/20/2025 8:30 PM EDT BASIC METABOLIC PANEL Routine 02/20/2025 8:30 PM EDT AMY COMP PROBE PLACED BY ANES W/ COLOR FLOW AND COMP DOPPLER Routine 02/20/2025 3:58 PM EDT Mitral valve insufficiency, unspecified etiology CREAT. COMMENT Routine 02/20/2025 3:51 PM EDT PHOSPHORUS Routine 02/20/2025 3:51 PM EDT MAGNESIUM Routine 02/20/2025 3:51 PM EDT BASIC METABOLIC PANEL Routine 02/20/2025 3:51 PM EDT CREAT. COMMENT Routine 02/20/2025 8:58 AM EDT BASIC METABOLIC PANEL Routine 02/20/2025 8:58 AM EDT PREPARE RBC STAT 02/20/2025 7:10 AM EDT BASIC METABOLIC PANEL Routine 02/20/2025 4:02 AM EDT OXYGEN SATURATION, MIXED VENOUS Routine 02/20/2025 3:59 AM EDT ARTERIAL BLOOD GAS PLUS Routine 02/20/2025 3:59 AM EDT LACTATE (BLOOD GAS) Routine 02/20/2025 3 :59 AM EDT POCT GLUCOSE Routine 02/20/2025 3:17 AM EDT POCT GLUCOSE Routine 02/20/2025 2:57 AM EDT XR CHEST PORTABLE Imaging in AM 02/20/2025 2:4 7 AM EDT LFTS (HEPATIC PANEL) Routine 02/20/2025 1:33 AM EDT PTT Routine 02/20/2025 1:33 AM EDT PT-INR Routine 02/20/2025 1:33 AM EDT CBC Routine 02/20/2025 1:33 AM EDT PHOSPHORUS Routine 02/20/2025 1:33 AM EDT MAGNESIUM Routine 02/20/2025 1:33 AM EDT LIPASE Routine 02/20/2025 1:33 AM EDT BASIC METABOLIC PANEL Routine 02/20/2025 1:33 AM EDT OXYGEN SATURATION, MIXED VENOUS Routine 02/20/2025 1:02 AM EDT ARTERIAL BLOOD GAS PLUS Routine 02/20/2025 1:02 AM EDT LACTATE (BLOOD GAS) Routine 02/20/2025 1 :02 AM EDT OXYGEN SATURATION, MIXED VENOUS Routine 02/19/2025 8:42 PM EDT ARTERIAL BLOOD GAS PLUS Routine 02/19/2025 8:42 PM EDT LACTATE (BLOOD GAS) Routine 02/19/2025 8 :42 PM EDT ARTERIAL BLOOD GAS PLUS Routine 02/19/2025 5:22 PM EDT LACTATE (BLOOD GAS) Routine 02/19/2025 5 :22 PM EDT ARTERIAL BLOOD GAS PLUS Routine 02/19/2025 4:50 PM EDT LACTATE (BLOOD GAS) Routine 02/19/2025 4 :50 PM EDT ARTERIAL BLOOD GAS PLUS Routine 02/19/2025 3:21 PM EDT LACTATE (BLOOD GAS) Routine 02/19/2025 3 :21 PM EDT XR CHEST PORTABLE Routine 02/19/2025 2:5 5 PM EDT MRSA NASAL SCREEN Routine 02/19/2025 2:4 0 PM EDT VANCOMYCIN RESISTANT ENTEROCOCCI (VRE) RECTAL SCREEN Routine 02/19/2025 2:40 PM EDT OXYGEN SATURATION, MIXED VENOUS Routine 02/19/2025 2:38 PM EDT ARTERIAL BLOOD GAS PLUS Routine 02/19/2025 2:38 PM EDT LACTATE (BLOOD GAS) Routine 02/19/2025 2 :38 PM EDT LFTS (HEPATIC PANEL) Routine 02/19/2025 2:38 PM EDT PTT Routine 02/19/2025 2:38 PM EDT PT-INR Routine 02/19/2025 2:38 PM EDT CBC Routine 02/19/2025 2:38 PM EDT PHOSPHORUS Routine 02/19/2025 2:38 PM EDT MAGNESIUM Routine 02/19/2025 2:38 PM EDT LIPASE Routine 02/19/2025 2:38 PM EDT BASIC METABOLIC PANEL Routine 02/19/2025 2:38 PM EDT ARTERIAL BLOOD GAS PLUS STAT 02/19/2025 1:51 PM EDT LACTATE (BLOOD GAS) STAT 02/19/2025 1 :51 PM EDT PTT STAT 02/19/2025 1:51 PM EDT PT-INR STAT 02/19/2025 1:51 PM EDT FIBRINOGEN STAT 02/19/2025 1:51 PM EDT CBC STAT 02/19/2025 1:51 PM EDT POCT ACTFROM CARDIAC OR Routine 02/19/2025 1:48 PM EDT POCT HEPARIN PROTAMINE TITRATION Routine 02/19/2025 1:48 PM EDT POCT ACTFROM CARDIAC OR Routine 02/19/2025 1:13 PM EDT POCT HEPARIN PROTAMINE TITRATION Routine 02/19/2025 1:11 PM EDT PUMP BLOOD GAS PLUS STAT 02/19/2025 1 :03 PM EDT LACTATE (BLOOD GAS) STAT 02/19/2025 1 :03 PM EDT ASSIGN RED BLOOD CELLS Routine 02/19/2025 12:52 PM EDT POCT ACTFROM CARDIAC OR Routine 02/19/2025 12:37 PM EDT POCT HEPARIN PROTAMINE TITRATION Routine 02/19/2025 12:35 PM EDT PUMP BLOOD GAS PLUS STAT 02/19/2025 1 2:30 PM EDT LACTATE (BLOOD GAS) STAT 02/19/2025 1 2:30 PM EDT POCT ACTFROM CARDIAC OR Routine 02/19/2025 12:05 PM EDT POCT HEPARIN PROTAMINE TITRATION Routine 02/19/2025 12:03 PM EDT PUMP BLOOD GAS PLUS STAT 02/19/2025 1 1:58 AM EDT LACTATE (BLOOD GAS) STAT 02/19/2025 1 1:58 AM EDT POCT ACTFROM CARDIAC OR Routine 02/19/2025 11:36 AM EDT POCT HEPARIN PROTAMINE TITRATION Routine 02/19/2025 11:34 AM EDT PUMP BLOOD GAS PLUS STAT 02/19/2025 1 1:29 AM EDT LACTATE (BLOOD GAS) STAT 02/19/2025 1 1:29 AM EDT POCT ACTFROM CARDIAC OR Routine 02/19/2025 11:05 AM EDT POCT HEPARIN PROTAMINE TITRATION Routine 02/19/2025 11:03 AM EDT PUMP BLOOD GAS PLUS STAT 02/19/2025 1 1:02 AM EDT LACTATE (BLOOD GAS) STAT 02/19/2025 1 1:02 AM EDT POCT ACTFROM CARDIAC OR Routine 02/19/2025 10:36 AM EDT POCT HEPARIN PROTAMINE TITRATION Routine 02/19/2025 10:36 AM EDT PUMP BLOOD GAS PLUS STAT 02/19/2025 1 0:29 AM EDT ASSIGN RED BLOOD CELLS Routine 02/19/2025 10:29 AM EDT LACTATE (BLOOD GAS) STAT 02/19/2025 1 0:29 AM EDT ANATOMIC PATHOLOGY Routine 02/19/2025 10 :09 AM EDT POCT ACTFROM CARDIAC OR Routine 02/19/2025 10:02 AM EDT POCT HEPARIN PROTAMINE TITRATION Routine 02/19/2025 10:02 AM EDT PUMP BLOOD GAS PLUS STAT 02/19/2025 9 :56 AM EDT LACTATE (BLOOD GAS) STAT 02/19/2025 9 :56 AM EDT POCT ACTFROM CARDIAC OR Routine 02/19/2025 9:32 AM EDT POCT HEPARIN PROTAMINE TITRATION Routine 02/19/2025 9:32 AM EDT PUMP BLOOD GAS PLUS STAT 02/19/2025 9 :27 AM EDT LACTATE (BLOOD GAS) STAT 02/19/2025 9 :27 AM EDT POCT ACTFROM CARDIAC OR Routine 02/19/2025 9:02 AM EDT POCT HEPARIN PROTAMINE TITRATION Routine 02/19/2025 9:02 AM EDT PUMP BLOOD GAS PLUS STAT 02/19/2025 8 :55 AM EDT VENOUS BLOOD GAS PLUS STAT 02/19/2025 8:55 AM EDT LACTATE (BLOOD GAS) STAT 02/19/2025 8 :55 AM EDT POCT ACTFROM CARDIAC OR Routine 02/19/2025 8:44 AM EDT POCT HEPARIN PROTAMINE TITRATION Routine 02/19/2025 8:44 AM EDT ARTERIAL BLOOD GAS PLUS STAT 02/19/2025 7:45 AM EDT LACTATE (BLOOD GAS) STAT 02/19/2025 7 :45 AM EDT POCT HEPARIN DOSE RESPONSE Routine 02/19/2025 7:45 AM EDT BASIC METABOLIC PANEL STAT 02/19/2025 7:45 AM EDT AL MITRALPLASTY W CP BYPASS 02/19/2025 7:33 AM EDT Mitral valve prolapse Special Needs CPT Code for : Minimally Invasive MV Repair 86525 Robotic documented in this encounter Results * (ABNORMAL) CBC (02/26/2025 6:04 AM EDT) WBC 5.75 4.00 - 11.00 K/uL [facility] RBC 3.39(L) 4.50 - 5.90 M/uL [facility] HGB 9.2(L) 13.5 - 17.5 g/dL [facility] HCT 28.8(L) 41.0 - 53.0 % [facility] PLT 236 150 - 450 K/uL [facility] MCV 85.0 80.0 - 100.0 fL [facility] MCH 27.1 27.0 - 31.0 pg [facility] MCHC 31.9(L) 32.0 - 36.0 g/dL [facility] RDW 20.9(H) 11.5 - 14.5 % [facility] MPV 9.3 8.4 - 12.0 fL [facility] NRBC 0.00 0.00 /100 WBCs [facility] ABSOLUTE NRBC 0.00 0.00 K/uL [facility] Blood 02/26/2025 6:04 AM EDT 02/26/2025 6:57 AM EDT us Marlyn Garrido OLERICULTURE PROFESSOR, DNP LAB BLOOD ORDERABLES Final Result [address] [address] * Magnesium (02/26/2025 6:04 AM EDT) MAGNESIUM 2.1 1.7 - 2.4 mg/dL [facility] Blood 02/26/2025 6:04 AM EDT 02/26/2025 6:57 AM EDT Marlyn Garrido CNP, [facility] LAB BLOOD ORDERABLES Final Result Performing Organization Address [facility] Co de Phone Number [address] [address] * (ABNORMAL) Basic metabolic panel (02/26/2025 6:04 AM EDT) SODIUM 131(L) 135 - 145 mmol/L [facility] POTASSIUM 4.5 3.4 - 5.0 mmol/L [facility] CHLORIDE 94(L) 98 - 108 mmol/L [facility] CO2 30 23 - 32 mmol/L [facility] BUN 16 8 - 25 mg/dL [facility] CREATININE 1.25 0.60 - 1.30 mg/dL [facility] GLUCOSE 105 70 - 110 mg/dL [facility] CALCIUM 9.1 8.5 - 10.5 mg/dL [facility] EGFR 70 >59 mL/min/1. 73m2 [facility] Comment:Estimated glomerular filtration rate calculated using the CKD-EPI refit equation. ANION GAP 7 3 - 17 mmol/L [facility] Blood 02/26/2025 6:04 AM EDT 02/26/2025 6:57 AM EDT Marlyn Garrido CNP, [facility] LAB BLOOD ORDERABLES Final Result Performing Organization Address City/[facility] Co de Phone Number [address] [address] * Type and Screen (ABO,Rh,Antibody Screen) (02/26/2025 6:04 AM EDT) Expiration Date of Sample 03/01/2025 11:59 PM [facility] Antibody Screen Negative 02/26/2025 7:27 AM EDT [facility] Resulting Agency [facility] ABO O 02/26/2025 7:11 AM EDT [facility] Rh Positive 02/26/2025 7:11 AM EDT [facility] Blood 02/26/2025 6:04 AM EDT 02/26/2025 6:23 AM EDT us Pita Barney PA-C BLOOD BANK TEST ORDERABLE S Final Result [facility] [address] [place] [address] * XR CHEST PA AND LATERAL 2 VIEWS (02/25/2025 3:36 PM EDT) Anatomical Region Laterality Modality Chest Computed Radiogr aphy 02/25/2025 3:42 PM EDT Impressions 02/25/2025 5:40 PM EDT Status post mitral valve replacement. Opacities in lung bases bilaterally increased in the lower lobes compared February 23, 2025. These may represent areas of increased lower lobe atelectasis. Small bilateral pleural effusions. Compared to February 23, 2025, there is unchanged thickening of the right lateral pleural stripe which may be related to pleural thickening and/or laterally loculated pleural effusion. Unchanged mild enlargement of the cardiac silhouette. Low lung volume examination. Narrative 02/25/2025 5:40 PM EDT XR CHEST PA AND LATERAL 2 VIEWS Referring clinician's provided indication for this examination in Epic: Post-Op; s/p robotic mitral valve repair COMPARISON: XR CHEST PA AND LATERAL 2 VIEWS 2024- FINDINGS: Devices/Tubes/Lines: Status post mitral valve replacement. Lungs: There are patchy areas of opacity present in the lung bases bilaterally. On the lateral view, there is increased opacity in lower lobes compared to February 23, 2025. There is no evidence for pulmonary edema. Lung volumes are low. Pleura: There is blunting of the right costophrenic angle. There is thickening of the right pleural stripe measuring up to 1.9 cm in thickness. There is mild thickening of the right pleural stripe extending to the right apex unchanged. No evidence for pneumothorax. Heart/Mediastinum: Mild enlargement of the cardiac silhouette is unchanged in appearance. Bones/Soft Tissues: Bony thorax and extrathoracic soft tissues are unchanged. Procedure Note Samm Booker MD - 02/25/2025 XR CHEST PA AND LATERAL 2 VIEWS Referring clinician's provided indication for this examination in Epic:Post-Op; s/p robotic mitral valve repair COMPARISON: XR CHEST PA AND LATERAL 2 VIEWS 2024- FINDINGS: Devices/Tubes/Lines: Status post mitral valve replacement. Lungs: There are patchy areas of opacity present in the lung basesbilaterally. On the lateral view, there is increased opacity in lowerlobes compared to February 23, 2025. There is no evidence for pulmonaryedema. Lung volumes are low. Pleura: There is blunting of the right costophrenic angle. There isthickening of the right pleural stripe measuring up to 1.9 cm inthickness. There is mild thickening of the right pleural stripe extendingto the right apex unchanged. No evidence for pneumothorax. Heart/Mediastinum: Mild enlargement of the cardiac silhouette is unchangedin appearance. Bones/Soft Tissues: Bony thorax and extrathoracic soft tissues areunchanged. IMPRESSION: Status post mitral valve replacement. Opacities in lung bases bilaterally increased in the lower lobes comparedOct2024. These may represent areas of increased lower lobeatelectasis. Small bilateral pleural effusions. Compared to February 23, 2025, there isunchanged thickening of the right lateral pleural stripe which may berelated to pleural thickening and/or laterally loculated pleuraleffusion. Unchanged mild enlargement of the cardiac silhouette. Low lung volume examination. Pita Barney PA-C IMG XR CHEST Final Res ult * (ABNORMAL) CBC (02/25/2025 3:55 AM EDT) WBC 6.91 4.00 - 11.00 K/uL [facility] RBC 3.31(L) 4.50 - 5.90 M/uL [facility] HGB 8.8(L) 13.5 - 17.5 g/dL [facility] HCT 28.5(L) 41.0 - 53.0 % [facility] PLT 233 150 - 450 K/uL [facility] MCV 86.1 80.0 - 100.0 fL [facility] MCH 26.6(L) 27.0 - 31.0 pg [facility] MCHC 30.9(L) 32.0 - 36.0 g/dL [facility] RDW 20.6(H) 11.5 - 14.5 % [facility] MPV 9.6 8.4 - 12.0 fL [facility] NRBC 0.00 0.00 /100 WBCs [facility] ABSOLUTE NRBC 0.00 0.00 K/uL [facility] Blood 02/25/2025 3:55 AM EDT 02/25/2025 4:06 AM EDT Marlyn Garrido CNP, [facility] LAB BLOOD ORDERABLES Final Result Performing Organization Address [facility] Co de Phone Number [address] [address] * Magnesium (02/25/2025 3:55 AM EDT) MAGNESIUM 1.9 1.7 - 2.4 mg/dL [facility] Blood 02/25/2025 3:55 AM EDT 02/25/2025 4:06 AM EDT Marlyn Garrido CNP, [facility] LAB BLOOD ORDERABLES Final Result Performing Organization Address [facility] Co de Phone Number [address] [address] * (ABNORMAL) Basic metabolic panel (02/25/2025 3:55 AM EDT) SODIUM 133(L) 135 - 145 mmol/L [facility] POTASSIUM 4.8 3.4 - 5.0 mmol/L [facility] CHLORIDE 94(L) 98 - 108 mmol/L [facility] CO2 28 23 - 32 mmol/L [facility] BUN 15 8 - 25 mg/dL [facility] CREATININE 1.16 0.60 - 1.30 mg/dL [facility] GLUCOSE 110 70 - 110 mg/dL [facility] CALCIUM 9.0 8.5 - 10.5 mg/dL [facility] EGFR 76 >59 mL/min/1. 73m2 [facility] Comment:Estimated glomerular filtration rate calculated using the CKD-EPI refit equation. ANION GAP 11 3 - 17 mmol/L [facility] Blood 02/25/2025 3:55 AM EDT 02/25/2025 4:06 AM EDT Marlyn Garrido OLERICULTURE PROFESSOR, DNP LAB BLOOD ORDERABLES Final Result Performing Organization Address City/[facility] Co de Phone Number [address] [address] * Magnesium (02/24/2025 4:10 AM EDT) MAGNESIUM 2.1 1.7 - 2.4 mg/dL [facility] Blood 02/24/2025 4:10 AM EDT 02/24/2025 4:32 AM EDT Result [facility] Pita Barney PA-C LAB BLOOD ORDERABLES Jeanine l Result Performing Organization Address [facility] Co de Phone Number [address] [address] * (ABNORMAL) Basic metabolic panel (02/24/2025 4:10 AM EDT) SODIUM 135 135 - 145 mmol/L [facility] POTASSIUM 4.0 3.4 - 5.0 mmol/L [facility] CHLORIDE 97(L) 98 - 108 mmol/L [facility] CO2 29 23 - 32 mmol/L [facility] BUN 15 8 - 25 mg/dL [facility] CREATININE 1.16 0.60 - 1.30 mg/dL [facility] GLUCOSE 116(H) 70 - 110 mg/dL [facility] CALCIUM 8.8 8.5 - 10.5 mg/dL [facility] EGFR 76 >59 mL/min/1. 73m2 [facility] Comment:Estimated glomerular filtration rate calculated using the CKD-EPI refit equation. ANION GAP 9 3 - 17 mmol/L [facility] Blood 02/24/2025 4:10 AM EDT 02/24/2025 4:32 AM EDT Pita Barney PA-C LAB BLOOD ORDERABLES Jeanine l Result [address] [address] * (ABNORMAL) CBC (02/24/2025 4:00 AM EDT) WBC 5.72 4.00 - 11.00 K/uL [facility] RBC 3.11(L) 4.50 - 5.90 M/uL [facility] HGB 8.3(L) 13.5 - 17.5 g/dL [facility] HCT 26.7(L) 41.0 - 53.0 % [facility] PLT 188 150 - 450 K/uL [facility] MCV 85.9 80.0 - 100.0 fL [facility] MCH 26.7(L) 27.0 - 31.0 pg [facility] MCHC 31.1(L) 32.0 - 36.0 g/dL [facility] RDW 20.8(H) 11.5 - 14.5 % [facility] MPV 9.4 8.4 - 12.0 fL [facility] NRBC 0.00 0.00 /100 WBCs [facility] ABSOLUTE NRBC 0.00 0.00 K/uL [facility] Blood 02/24/2025 4:00 AM EDT 02/24/2025 4:33 AM EDT Pita Barney PA-C LAB BLOOD ORDERABLES Jeanine l Result Performing Organization Address City/[facility]/ZIP Co de Phone Number [address] [phone] * Magnesium (02/23/2025 5:21 PM EDT) MAGNESIUM 2.2 1.7 - 2.4 mg/dL [facility] Blood 02/23/2025 5:21 PM EDT 02/23/2025 5:25 PM EDT Pita Barney PA-C LAB BLOOD ORDERABLES Jeanine l Result [address] [address] * (ABNORMAL) Basic metabolic panel (02/23/2025 5:21 PM EDT) SODIUM 135 135 - 145 mmol/L [facility] POTASSIUM 4.1 3.4 - 5.0 mmol/L [facility] CHLORIDE 96(L) 98 - 108 mmol/L [facility] CO2 32 23 - 32 mmol/L [facility] BUN 14 8 - 25 mg/dL [facility] CREATININE 1.12 0.60 - 1.30 mg/dL [facility] GLUCOSE 135(H) 70 - 110 mg/dL [facility] CALCIUM 8.6 8.5 - 10.5 mg/dL [facility] EGFR 80 >59 mL/min/1. 73m2 [facility] Comment:Estimated glomerular filtration rate calculated using the CKD-EPI refit equation. ANION GAP 7 3 - 17 mmol/L [facility] Blood 02/23/2025 5:21 PM EDT 02/23/2025 5:25 PM EDT Pita Barney PA-C LAB BLOOD ORDERABLES Jeanine sim Result [facility] [address] [place] [address] * XR CHEST PA AND LATERAL 2 VIEWS (02/23/2025 5:45 AM EDT) Anatomical Region Laterality Modality Chest Computed Radiogr aphy 02/23/2025 8:26 AM EDT Impressions 02/23/2025 8:28 AM EDT RIGHT basilar subsegmental atelectasis. Increased LEFT retrocardiac likely atelectasis. Aspiration or pneumonia cannot be excluded. Stable small pleural effusions. No pneumothorax. Narrative 02/23/2025 8:28 AM EDT XR CHEST PA AND LATERAL 2 VIEWS Referring clinician's provided indication for this examination in Epic: S/P Cardiac Surgery COMPARISON: XR CHEST PORTABLE FINDINGS: Devices/Tubes/Lines: None. Lungs: Low lung volumes. Subsegmental atelectasis at the RIGHT lung base. Slight increase in patchy opacity in the LEFT retrocardiac region. No definite pulmonary edema. Pleura: Small pleural effusions unchanged. No pneumothorax. Heart/Mediastinum: Mild cardiomegaly unchanged. Status post mitral valve replacement. Bones/Soft Tissues: No significant skeletal abnormality. Procedure Note Sagrario Gaston MD - 02/23/2025 XR CHEST PA AND LATERAL 2 VIEWS Referring clinician's provided indication for this examination in Epic:S/P Cardiac Surgery COMPARISON: XR CHEST PORTABLE FINDINGS: Devices/Tubes/Lines: None. Lungs: Low lung volumes. Subsegmental atelectasis at the RIGHT lung base.Slight increase in patchy opacity in the LEFT retrocardiac region. Nodefinite pulmonary edema. Pleura: Small pleural effusions unchanged. No pneumothorax. Heart/Mediastinum: Mild cardiomegaly unchanged. Status post mitral valvereplacement. Bones/Soft Tissues: No significant skeletal abnormality. IMPRESSION: RIGHT basilar subsegmental atelectasis. Increased LEFT retrocardiac likely atelectasis. Aspiration or pneumoniacannot be excluded. Stable small pleural effusions. No pneumothorax. us Gonzalo Parsons PA-C IMG XR CHEST Final R esult * Magnesium (02/23/2025 4:58 AM EDT) MAGNESIUM 2.4 1.7 - 2.4 mg/dL [facility] Blood 02/23/2025 4:58 AM EDT 02/23/2025 5:34 AM EDT us Natalie Acosta MD LAB BLOOD ORDERABLES Jeanine l Result [address] [address] * (ABNORMAL) CBC (02/23/2025 4:58 AM EDT) WBC 6.48 4.00 - 11.00 K/uL [facility] RBC 3.11(L) 4.50 - 5.90 M/uL [facility] HGB 8.2(L) 13.5 - 17.5 g/dL [facility] HCT 26.3(L) 41.0 - 53.0 % [facility] PLT 166 150 - 450 K/uL [facility] MCV 84.6 80.0 - 100.0 fL [facility] MCH 26.4(L) 27.0 - 31.0 pg [facility] MCHC 31.2(L) 32.0 - 36.0 g/dL [facility] RDW 21.1(H) 11.5 - 14.5 % [facility] MPV 9.8 8.4 - 12.0 fL [facility] NRBC 0.00 0.00 /100 WBCs [facility] ABSOLUTE NRBC 0.00 0.00 K/uL [facility] Blood 02/23/2025 4:58 AM EDT 02/23/2025 5:34 AM EDT Natalie Acosta MD LAB BLOOD ORDERABLES Jeanine l Result Performing Organization Address City/[facility]/ZIP Co de Phone Number [address] [address] * (ABNORMAL) Basic metabolic panel (02/23/2025 4:58 AM EDT) SODIUM 133(L) 135 - 145 mmol/L [facility] POTASSIUM 3.4 3.4 - 5.0 mmol/L [facility] CHLORIDE 92(L) 98 - 108 mmol/L [facility] CO2 33(H) 23 - 32 mmol/L [facility] BUN 13 8 - 25 mg/dL [facility] CREATININE 1.04 0.60 - 1.30 mg/dL [facility] GLUCOSE 108 70 - 110 mg/dL [facility] CALCIUM 8.2(L) 8.5 - 10.5 mg/dL [facility] EGFR 87 >59 mL/min/1. 73m2 [facility] Comment:Estimated glomerular filtration rate calculated using the CKD-EPI refit equation. ANION GAP 8 3 - 17 mmol/L [facility] Blood 02/23/2025 4:58 AM EDT 02/23/2025 5:34 AM EDT us Natalie Acosta MD LAB BLOOD ORDERABLES Jeanine l Result Performing Organization Address City/[facility]/ZIP Co de Phone Number [address] [address] * ECG 12-LEAD (02/23/2025 4:45 AM EDT) Systolic Blood Pressure 118 mmHg [facility] Diastolic Blood Pressure 60 mmHg [facility] Ventricular Rate EKG/MIN 65 BPM [facility] Atrial Rate 65 BPM [facility] AL Interval 174 ms [facility] QRS Duration 80 ms [facility] QT Interval 444 ms [facility] QTC Interval 461 ms [facility] P [place] 66 degrees [facility] R Wave [place] 52 degrees [facility] T Wave [place] -43 degrees [facility] 02/23/2025 4:45 AM EDT 02/27/2025 5:05 PM EDT Narrative [facility] - 02/27/2025 5:05 PM EDT LOC: EL8 DX: ARRHYTHMIA REF: TANA PEOPLESISSA NORMAL SINUS RHYTHM DIVYA PATTERN EARLY PRECORDIAL R WAVE TRANSITION DIFFUSE T WAVE ABNORMALITIES WHEN COMPARED WITH ECG OF 22-Feb-2025 06:23, NORMAL SINUS RHYTHM HAS REPLACED SINUS BRADYCARDIA , T WAVE ABNORMALITIES MORE MARKED us Graciela Peoples PA-C ECG ORDERABLES Final Res ult [facility] * XR Chest Portable (02/22/2025 11:45 AM EDT) Anatomical Region Laterality Modality Chest Computed Radiogr aphy 02/22/2025 2:10 PM EDT Impressions 02/22/2025 5:08 PM EDT Interval removal of right apical chest tube. Small right pneumothorax with air gap measuring 3 mm. Small bilateral pleural effusions, right greater than left. ATTESTATION: I, Dr. Fabiola Morrison as teaching physician, have reviewed the images for this case and if necessary edited the report originally created by Adeline Fernández. Narrative 02/22/2025 5:08 PM EDT XR CHEST PORTABLE Referring clinician's provided indication for this examination in Epic: Chest Tube Removal COMPARISON: XR CHEST PORTABLE 05:15:30.000 FINDINGS: Devices/Tubes/Lines: Interval removal of right apical chest tube. Right internal jugular sheath in place with tip projecting over the lower internal jugular vein. Lungs: Unchanged patchy and linear opacities in the bilateral lung bases. No evidence of pulmonary edema. Pleura: Small right pneumothorax appeared measuring 3 mm. Blunting of the bilateral costophrenic angles with stable thickening of the right pleural stripe. Heart/Mediastinum: Expected post-surgical changes following median sternotomy and minimally invasive mitral valve replacement. Unchanged borderline enlargement of the cardiac silhouette. Bones/Soft Tissues: Bony thorax and extrathoracic soft tissues are unchanged. Procedure Note Fabiola Morrison MD - 02/22/2025 XR CHEST PORTABLE Referring clinician's provided indication for this examination in Epic:Chest Tube Removal COMPARISON: XR CHEST PORTABLE 2024- 05:15:30.000 FINDINGS: Devices/Tubes/Lines: Interval removal of right apical chest tube. Rightinternal jugular sheath in place with tip projecting over the lowerinternal jugular vein. Lungs: Unchanged patchy and linear opacities in the bilateral lung bases.No evidence of pulmonary edema. Pleura: Small right pneumothorax appeared measuring 3 mm. Blunting of thebilateral costophrenic angles with stable thickening of the right pleuralstripe. Heart/Mediastinum: Expected post-surgical changes following mediansternotomy and minimally invasive mitral valve replacement. Unchangedborderline enlargement of the cardiac silhouette. Bones/Soft Tissues: Bony thorax and extrathoracic soft tissues areunchanged. IMPRESSION: Interval removal of right apical chest tube. Small right pneumothorax with air gap measuring 3 mm. Small bilateral pleural effusions, right greater than left. ATTESTATION: I, Dr. Fabiola Morrison as teaching physician, have reviewedthe images for this case and if necessary edited the report originallycreated by Adeline Fernández. us Lavinia You EMERGENCY PREPAREDNESS COORDINATOR IMG XR CHEST Final Resu lt * Lactate (02/22/2025 7:37 AM EDT) LACTIC ACID (MMOL/L) 0.8 0.5 - 2.0 mmol/L [facility] Blood 02/22/2025 7:37 AM EDT 02/22/2025 7:45 AM EDT Graciela Peoples PA-C LAB BLOOD ORDERABLES Jeanine l Result [address] [address] * (ABNORMAL) Magnesium (02/22/2025 7:37 AM EDT) MAGNESIUM 2.6(H) 1.7 - 2.4 mg/dL [facility] Blood 02/22/2025 7:37 AM EDT 02/22/2025 7:44 AM EDT Graciela Peoples PA-C LAB BLOOD ORDERABLES Jeanine l Result Performing Organization Address [facility] Co de Phone Number [address] [address] * (ABNORMAL) Basic metabolic panel (02/22/2025 7:37 AM EDT) SODIUM 132(L) 135 - 145 mmol/L [facility] POTASSIUM 3.7 3.4 - 5.0 mmol/L [facility] CHLORIDE 90(L) 98 - 108 mmol/L [facility] CO2 31 23 - 32 mmol/L [facility] BUN 12 8 - 25 mg/dL [facility] CREATININE 1.13 0.60 - 1.30 mg/dL [facility] GLUCOSE 111(H) 70 - 110 mg/dL [facility] CALCIUM 7.8(L) 8.5 - 10.5 mg/dL [facility] EGFR 79 >59 mL/min/1. 73m2 [facility] Comment:Estimated glomerular filtration rate calculated using the CKD-EPI refit equation. ANION GAP 11 3 - 17 mmol/L [facility] Blood 02/22/2025 7:37 AM EDT 02/22/2025 7:44 AM EDT Graciela Peoples PA-C LAB BLOOD ORDERABLES Jeanine l Result Performing Organization Address City/[facility]/ZIP Co de Phone Number [address] [address] * XR Chest Portable (02/22/2025 5:17 AM EDT) Anatomical Region Laterality Modality Chest Computed Radiogr aphy 02/22/2025 10:4 6 AM EDT Impressions 02/22/2025 10:54 AM EDT Tubes and lines as described. Previously seen tiny right apical pneumothorax is no longer visualized. Slightly decreased bilateral patchy and linear opacities at the lung bases, likely atelectasis. Small bilateral pleural effusions are also unchanged. ATTESTATION: I, Dr. Fabiola Morrison as teaching physician, have reviewed the images for this case and if necessary edited the report originally created by Whitley Jaramillo. Narrative 02/22/2025 10:54 AM EDT XR CHEST PORTABLE Referring clinician's provided indication for this examination in [facility]: Post-Op COMPARISON: XR CHEST PORTABLE ; CT CARDIAC (CORONARY) WITH AND WITHOUT CONTRAST, CT ANGIO ABD/.. FINDINGS: Devices/Tubes/Lines: Right IJ approach pulmonary artery catheter tip terminates in the proximal right pulmonary artery. Right chest tube is unchanged. Lungs: Low lung volumes. Slightly decreased bilateral patchy and linear opacities. No new areas of consolidation. Pleura: Previously seen tiny right apical pneumothorax is no longer visualized. Small bilateral pleural effusions are unchanged. Heart/Mediastinum: The cardiomediastinal silhouette is unchanged in appearance. Status post robotic mitral valve repair. Bones/Soft Tissues: Unchanged in appearance. Procedure Note Fabiola Morrison MD - 02/22/2025 XR CHEST PORTABLE Referring clinician's provided indication for this examination in [facility]:Post-Op COMPARISON: XR CHEST PORTABLE ; CT CARDIAC (CORONARY) WITH ANDWITHOUT CONTRAST, CT ANGIO ABD/.. FINDINGS: Devices/Tubes/Lines: Right IJ approach pulmonary artery catheter tipterminates in the proximal right pulmonary artery. Right chest tube isunchanged. Lungs: Low lung volumes. Slightly decreased bilateral patchy and linearopacities. No new areas of consolidation. Pleura: Previously seen tiny right apical pneumothorax is no longervisualized. Small bilateral pleural effusions are unchanged. Heart/Mediastinum: The cardiomediastinal silhouette is unchanged inappearance. Status post robotic mitral valve repair. Bones/Soft Tissues: Unchanged in appearance. IMPRESSION: Tubes and lines as described. Previously seen tiny right apical pneumothorax is no longer visualized. Slightly decreased bilateral patchy and linear opacities at the lungbases, likely atelectasis. Small bilateral pleural effusions are also unchanged. ATTESTATION: I, Dr. Fabiola Morrison as teaching physician, have reviewedthe images for this case and if necessary edited the report originallycreated by Whitley Jaramillo. us Adolfo Whyte EMERGENCY PREPAREDNESS COORDINATOR IMG XR CHEST Final Result * Type and Screen (ABO,Rh,Antibody Screen) (02/22/2025 1:47 AM EDT) Expiration Date of Sample 02/25/2025 11:59 PM [facility] Antibody Screen Negative 02/22/2025 2:35 AM EDT [facility] Resulting Agency [facility] ABO O 02/22/2025 2:16 AM EDT [facility] Rh Positive 02/22/2025 2:16 AM EDT [facility] Blood 02/22/2025 1:47 AM EDT 02/22/2025 1:51 AM EDT Graciela Peoples PA-C BLOOD BANK TEST ORDERABLE S Final Result [address] [address] * (ABNORMAL) LFTs (hepatic panel) (02/22/2025 1:43 AM EDT) ALBUMIN 3.2(L) 3.3 - 5.0 g/dL [facility] TOTAL BILIRUBIN 0.3 0.0 - 1.0 mg/dL [facility] DIRECT BILIRUBIN 0.1 0.0 - 0.3 mg/dL [facility] ALKALINE PHOSPHATASE 72 45 - 115 U/L [facility] AST 34 10 - 40 U/L [facility] ALT 32 10 - 55 U/L [facility] TOTAL PROTEIN 6.2 6.0 - 8.3 g/dL [facility] GLOBULIN 3.0 1.9 - 4.1 g/dL [facility] Blood 02/22/2025 1:43 AM EDT 02/22/2025 1:56 AM EDT Graciela Billsmaritza Peoples PA-C LAB BLOOD ORDERABLES Jeanine l Result [address] [address] * (ABNORMAL) Phosphorus (02/22/2025 1:43 AM EDT) PHOSPHORUS 2.3(L) 2.6 - 4.5 mg/dL [facility] Blood 02/22/2025 1:43 AM EDT 02/22/2025 1:56 AM EDT Graciela Billsmaritza Peoples PA-C LAB BLOOD ORDERABLES Jeanine l Result Performing Organization Address City/[facility]/ZIP Co de Phone Number [address] [address] * Magnesium (02/22/2025 1:43 AM EDT) MAGNESIUM 2.2 1.7 - 2.4 mg/dL [facility] Blood 02/22/2025 1:43 AM EDT 02/22/2025 1:56 AM EDT Graciela Billsmaritza LANDERS-Simon LAB BLOOD ORDERABLES Jeanine l Result Performing Organization Address City/[facility] Co de Phone Number [address] [address] * (ABNORMAL) Basic metabolic panel (02/22/2025 1:43 AM EDT) SODIUM 132(L) 135 - 145 mmol/L [facility] POTASSIUM 3.3(L) 3.4 - 5.0 mmol/L [facility] CHLORIDE 91(L) 98 - 108 mmol/L [facility] CO2 33(H) 23 - 32 mmol/L [facility] BUN 13 8 - 25 mg/dL [facility] CREATININE 1.13 0.60 - 1.30 mg/dL [facility] GLUCOSE 104 70 - 110 mg/dL [facility] CALCIUM 7.7(L) 8.5 - 10.5 mg/dL [facility] EGFR 79 >59 mL/min/1. 73m2 [facility] Comment:Estimated glomerular filtration rate calculated using the CKD-EPI refit equation. ANION GAP 8 3 - 17 mmol/L [facility] Blood 02/22/2025 1:43 AM EDT 02/22/2025 1:56 AM EDT us Graciela Peoples PA-C LAB BLOOD ORDERABLES Jeanine l Result [address] [address] * PTT (02/22/2025 1:43 AM EDT) APTT 29.2 24.0 - 37.5 sec [facility] Comment:Check MAR for the ta rget range that is ordered for your patient. Blood 02/22/2025 1:43 AM EDT 02/22/2025 1:56 AM EDT us Graciela Peoples PA-C LAB BLOOD ORDERABLES Jeanine l Result Performing Organization Address City/[facility]/ZIP Co de Phone Number [address] [address] * PT-INR (02/22/2025 1:43 AM EDT) PT 11.3 10.0 - 13.0 sec [facility] INR 1.0 0.9 - 1.1 [facility] Blood 02/22/2025 1:43 AM EDT 02/22/2025 1:56 AM EDT Graciela Peoples PA-C LAB BLOOD ORDERABLES Jeanine l Result [address] [address] * (ABNORMAL) CBC (02/22/2025 1:43 AM EDT) WBC 7.35 4.00 - 11.00 K/uL [facility] RBC 3.21(L) 4.50 - 5.90 M/uL [facility] HGB 8.5(L) 13.5 - 17.5 g/dL [facility] HCT 26.9(L) 41.0 - 53.0 % [facility] PLT 115(L) 150 - 450 K/uL [facility] MCV 83.8 80.0 - 100.0 fL [facility] MCH 26.5(L) 27.0 - 31.0 pg [facility] MCHC 31.6(L) 32.0 - 36.0 g/dL [facility] RDW 20.9(H) 11.5 - 14.5 % [facility] MPV 9.8 8.4 - 12.0 fL [facility] NRBC 0.00 0.00 /100 WBCs [facility] ABSOLUTE NRBC 0.00 0.00 K/uL [facility] Blood 02/22/2025 1:43 AM EDT 02/22/2025 1:56 AM EDT Graciela Peoples PA-C LAB BLOOD ORDERABLES Jeanine l Result Performing Organization Address City/[facility] Co de Phone Number [address] [address] * Phosphorus (02/21/2025 3:17 PM EDT) PHOSPHORUS 3.1 2.6 - 4.5 mg/dL [facility] Blood 02/21/2025 3:17 PM EDT 02/21/2025 3:24 PM EDT Graciela Peoples PA-C LAB BLOOD ORDERABLES Jeanine l Result Performing Organization Address [facility] Co de Phone Number [address] [address] * (ABNORMAL) Magnesium (02/21/2025 3:17 PM EDT) MAGNESIUM 2.8(H) 1.7 - 2.4 mg/dL [facility] Blood 02/21/2025 3:17 PM EDT 02/21/2025 3:24 PM EDT Graciela Peoples PA-C LAB BLOOD ORDERABLES Jeanine l Result [address] [address] * (ABNORMAL) Basic metabolic panel (02/21/2025 3:17 PM EDT) SODIUM 132(L) 135 - 145 mmol/L [facility] POTASSIUM 3.5 3.4 - 5.0 mmol/L [facility] CHLORIDE 92(L) 98 - 108 mmol/L [facility] CO2 32 23 - 32 mmol/L [facility] BUN 15 8 - 25 mg/dL [facility] CREATININE 1.17 0.60 - 1.30 mg/dL [facility] GLUCOSE 112(H) 70 - 110 mg/dL [facility] CALCIUM 7.9(L) 8.5 - 10.5 mg/dL [facility] EGFR 75 >59 mL/min/1. 73m2 [facility] Comment:Estimated glomerular filtration rate calculated using the CKD-EPI refit equation. ANION GAP 8 3 - 17 mmol/L [facility] Blood 02/21/2025 3:17 PM EDT 02/21/2025 3:24 PM EDT Graciela Mily Peoples PA-C LAB BLOOD ORDERABLES Jeanine l Result Performing Organization Address [facility] Co de Phone Number [address] [address] * Creat. Comment (02/21/2025 9:42 AM EDT) Creat Comment Increasing Creatinine Value on your Patient: The calculated GFR may thus overestimate the true GFR and should not be used to guide medication dosing. Negative [facility] 02/21/2025 9:42 AM EDT 02/21/2025 9:47 AM EDT Gracielazia RECINOSC LAB BLOOD ORDERABLES Jeanine l Result [address] [address] * Phosphorus (02/21/2025 9:42 AM EDT) PHOSPHORUS 3.1 2.6 - 4.5 mg/dL [facility] Blood 02/21/2025 9:42 AM EDT 02/21/2025 9:47 AM EDT Graciela Peoples PA-C LAB BLOOD ORDERABLES Jeanine l Result Performing Organization Address [facility]/ZIP Co de Phone Number [address] [address] * Magnesium (02/21/2025 9:42 AM EDT) MAGNESIUM 2.2 1.7 - 2.4 mg/dL [facility] Blood 02/21/2025 9:42 AM EDT 02/21/2025 9:47 AM EDT Graciela Peoples PA-C LAB BLOOD ORDERABLES Jeanine l Result Performing Organization Address [facility] de Phone Number [place] [phone] * (ABNORMAL) Basic metabolic panel (02/21/2025 9:42 AM EDT) SODIUM 132(L) 135 - 145 mmol/L [facility] POTASSIUM 3.6 3.4 - 5.0 mmol/L [facility] CHLORIDE 92(L) 98 - 108 mmol/L [facility] CO2 29 23 - 32 mmol/L [facility] BUN 15 8 - 25 mg/dL [facility] CREATININE 1.24 0.60 - 1.30 mg/dL [facility] Comment:INCREASED GLUCOSE 114(H) 70 - 110 mg/dL [facility] CALCIUM 8.2(L) 8.5 - 10.5 mg/dL [facility] EGFR 70 >59 mL/min/1. 73m2 [facility] Comment:Estimated glomerular filtration rate calculated using the CKD-EPI refit equation. ANION GAP 11 3 - 17 mmol/L [facility] Blood 02/21/2025 9:42 AM EDT 02/21/2025 9:47 AM EDT Graciela Peoples PA-C LAB BLOOD ORDERABLES Jeanine l Result Performing Organization Address City/[facility]/ZIP Co de Phone Number [address] [address] * Creat. Comment (02/21/2025 2:06 AM EDT) Creat Comment Increasing Creatinine Value on your Patient: The calculated GFR may thus overestimate the true GFR and should not be used to guide medication dosing. Negative [facility] 02/21/2025 2:06 AM EDT 02/21/2025 2:25 AM EDT Graciela Mily LANDERS-C LAB BLOOD ORDERABLES Jeanine l Result Performing Organization Address [facility] Co de Phone Number [address] [address] * (ABNORMAL) Basic metabolic panel (02/21/2025 2:06 AM EDT) SODIUM 133(L) 135 - 145 mmol/L [facility] POTASSIUM 3.8 3.4 - 5.0 mmol/L [facility] CHLORIDE 97(L) 98 - 108 mmol/L [facility] CO2 27 23 - 32 mmol/L [facility] BUN 16 8 - 25 mg/dL [facility] CREATININE 1.43(H) 0.60 - 1.30 mg/dL [facility] Comment:INCREASED GLUCOSE 122(H) 70 - 110 mg/dL [facility] CALCIUM 8.4(L) 8.5 - 10.5 mg/dL [facility] EGFR 59(L) >59 mL/min/1. 73m2 [facility] Comment:Estimated glomerular filtration rate calculated using the CKD-EPI refit equation. ANION GAP 9 3 - 17 mmol/L [facility] Blood 02/21/2025 2:06 AM EDT 02/21/2025 2:25 AM EDT Graciela Mily RECINOSC LAB BLOOD ORDERABLES Jeanine l Result Performing Organization Address City/[facility]/ZIP Co de Phone Number [address] [address] * (ABNORMAL) LFTs (hepatic panel) (02/21/2025 2:06 AM EDT) ALBUMIN 3.6 3.3 - 5.0 g/dL [facility] TOTAL BILIRUBIN 0.5 0.0 - 1.0 mg/dL [facility] DIRECT BILIRUBIN 0.2 0.0 - 0.3 mg/dL [facility] ALKALINE PHOSPHATASE 71 45 - 115 U/L [facility] AST 61(H) 10 - 40 U/L [facility] ALT 45 10 - 55 U/L [facility] TOTAL PROTEIN 6.3 6.0 - 8.3 g/dL [facility] GLOBULIN 2.7 1.9 - 4.1 g/dL [facility] Blood 02/21/2025 2:06 AM EDT 02/21/2025 2:25 AM EDT Graciela LANDERS-C LAB BLOOD ORDERABLES Jeanine l Result Performing Organization Address [facility] Co de Phone Number [address] [address] * Phosphorus (02/21/2025 2:06 AM EDT) PHOSPHORUS 4.0 2.6 - 4.5 mg/dL [facility] Blood 02/21/2025 2:06 AM EDT 02/21/2025 2:25 AM EDT Graciela Mily LANDERS-C LAB BLOOD ORDERABLES Jeanine l Result Performing Organization Address City/[facility] Co de Phone Number [address] [address] * Magnesium (02/21/2025 2:06 AM EDT) MAGNESIUM 2.3 1.7 - 2.4 mg/dL [facility] Blood 02/21/2025 2:06 AM EDT 02/21/2025 2:25 AM EDT Graciela Mily LANDERS-C LAB BLOOD ORDERABLES Jeanine l Result Performing Organization Address City/[facility]/ZIP Co de Phone Number [address] [address] * (ABNORMAL) PTT (02/21/2025 2:06 AM EDT) APTT 20.4(L) 24.0 - 37.5 sec [facility] Comment:Check MAR for the ta rget range that is ordered for your patient. Blood 02/21/2025 2:06 AM EDT 02/21/2025 2:26 AM EDT us Graciela Peoples PA-C LAB BLOOD ORDERABLES Jeanine l Result [address] [id number] * PT-INR (02/21/2025 2:06 AM EDT) Pathologist [facility] PT 12.1 10.0 - 13.0 sec [facility] INR 1.1 0.9 - 1.1 [facility] Blood 02/21/2025 2:06 AM EDT 02/21/2025 2:26 AM EDT us Graciela Peoples PA-C LAB BLOOD ORDERABLES Jeanine l Result Performing Organization Address City/[facility] Co de Phone Number [address] [address] * (ABNORMAL) CBC (02/21/2025 2:06 AM EDT) WBC 11.14(H) 4.00 - 11.00 K/uL [facility] RBC 3.25(L) 4.50 - 5.90 M/uL [facility] HGB 8.8(L) 13.5 - 17.5 g/dL [facility] HCT 28.4(L) 41.0 - 53.0 % [facility] PLT 112(L) 150 - 450 K/uL [facility] MCV 87.4 80.0 - 100.0 fL [facility] MCH 27.1 27.0 - 31.0 pg [facility] MCHC 31.0(L) 32.0 - 36.0 g/dL [facility] RDW 21.1(H) 11.5 - 14.5 % [facility] MPV 11.3 8.4 - 12.0 fL [facility] NRBC 0.00 0.00 /100 WBCs [facility] ABSOLUTE NRBC 0.00 0.00 K/uL [facility] Blood 02/21/2025 2:06 AM EDT 02/21/2025 2:25 AM EDT us Graciela Peoples PA-C LAB BLOOD ORDERABLES Jeanine sim Result [address] [address] * XR Chest Portable (02/20/2025 10:18 PM EDT) Anatomical Region Laterality Modality Chest Computed Radiogr aphy 02/21/2025 8:54 AM EDT Impressions 02/21/2025 8:57 AM EDT Trace RIGHT apical pneumothorax with RIGHT chest tube in place. Bibasilar linear and patchy atelectasis. Small bilateral pleural effusions. No evidence of pulmonary edema. Status post robotic mitral valve repair. Narrative 02/21/2025 8:57 AM EDT XR CHEST PORTABLE Referring clinician's provided indication for this examination in [facility]: Post-Op COMPARISON: XR CHEST PORTABLE 02:46:11.000 FINDINGS: Devices/Tubes/Lines: A transverse mediastinal drain is been removed. PA catheter tip is at the level the main pulmonary artery. RIGHT chest tube remains in place. Lungs: Lung volumes are low with bibasilar linear and patchy opacities. No evidence of pulmonary edema. Pleura: Trace RIGHT apical pneumothorax. Small bilateral pleural effusions. Heart/Mediastinum: Expected post-surgical changes following cardiac surgery. Status post robotic mitral valve repair. Bones/Soft Tissues: Normal. No significant skeletal abnormality. Procedure Note Martir Ugarte MD - 02/21/2025 XR CHEST PORTABLE Referring clinician's provided indication for this examination in [facility]:Post-Op COMPARISON: XR CHEST PORTABLE 02:46:11.000 FINDINGS: Devices/Tubes/Lines: A transverse mediastinal drain is been removed. PAcatheter tip is at the level the main pulmonary artery. RIGHT chest tuberemains in place. Lungs: Lung volumes are low with bibasilar linear and patchy opacities. Noevidence of pulmonary edema. Pleura: Trace RIGHT apical pneumothorax. Small bilateral pleuraleffusions. Heart/Mediastinum: Expected post-surgical changes following cardiacsurgery. Status post robotic mitral valve repair. Bones/Soft Tissues: Normal. No significant skeletal abnormality. IMPRESSION: Trace RIGHT apical pneumothorax with RIGHT chest tube in place. Bibasilar linear and patchy atelectasis. Small bilateral pleural effusions. No evidence of pulmonary edema. Status post robotic mitral valve repair. us Adolfo Whyte EMERGENCY PREPAREDNESS COORDINATOR IMG XR CHEST Final Result * Creat. Comment (02/20/2025 8:30 PM EDT) Creat Comment Increasing Creatinine Value on your Patient: The calculated GFR may thus overestimate the true GFR and should not be used to guide medication dosing. Negative [facility] 02/20/2025 8:30 PM EDT 02/20/2025 8:39 PM EDT us Graciela LANDERS-C LAB BLOOD ORDERABLES Jeanine l Result Performing Organization Address City/[facility]/ZIP Co de Phone Number [address] [address] * Lactate (blood gas) (02/20/2025 8:30 PM EDT) Lactate, blood 1.6 0.5 - 2.0 mmol/L [facility] Blood 02/20/2025 8:30 PM EDT 02/20/2025 8:38 PM EDT Gracielazia LANDERS-C LAB BLOOD ORDERABLES Jeanine l Result [address] [address] * Phosphorus (02/20/2025 8:30 PM EDT) PHOSPHORUS 4.4 2.6 - 4.5 mg/dL [facility] Blood 02/20/2025 8:30 PM EDT 02/20/2025 8:39 PM EDT Graciela Peoples PA-C LAB BLOOD ORDERABLES Jeanine l Result [address] [address] * Magnesium (02/20/2025 8:30 PM EDT) MAGNESIUM 2.4 1.7 - 2.4 mg/dL [facility] Blood 02/20/2025 8:30 PM EDT 02/20/2025 8:39 PM EDT Graciela Peoples PA-C LAB BLOOD ORDERABLES Jeanine l Result Performing Organization Address [facility] Co de Phone Number [address] [address] * (ABNORMAL) Basic metabolic panel (02/20/2025 8:30 PM EDT) SODIUM 132(L) 135 - 145 mmol/L [facility] POTASSIUM 4.2 3.4 - 5.0 mmol/L [facility] CHLORIDE 99 98 - 108 mmol/L [facility] CO2 22(L) 23 - 32 mmol/L [facility] BUN 17 8 - 25 mg/dL [facility] CREATININE 1.43(H) 0.60 - 1.30 mg/dL [facility] Comment:INCREASED GLUCOSE 145(H) 70 - 110 mg/dL [facility] CALCIUM 8.3(L) 8.5 - 10.5 mg/dL [facility] EGFR 59(L) >59 mL/min/1. 73m2 [facility] Comment:Estimated glomerular filtration rate calculated using the CKD-EPI refit equation. ANION GAP 11 3 - 17 mmol/L [facility] Blood 02/20/2025 8:30 PM EDT 02/20/2025 8:39 PM EDT Graciela Peoples PA-C LAB BLOOD ORDERABLES Jeanine l Result Performing Organization Address City/[facility]/ZIP Co de Phone Number [address] [address] * (ABNORMAL) Arterial blood gas PLUS (02/20/2025 8:30 PM EDT) FIO2 2L NC FIO2/L min [facility] PH 7.37 7.35 - 7.45 [facility] PCO2 41 35 - 42 mm[Hg] [facility] PO2 118(H) 80 - 100 mm[Hg] [facility] Base Excess, unspecified NEG 0.0 - 3.0 mmol/L [facility] Comment:1.8NEG HCO3, unspecified 23(L) 24 - 30 mmol/L [facility] SODIUM 131(L) 135 - 145 mmol/L [facility] POTASSIUM 4.3 3.5 - 5.0 mmol/L [facility] IONIZED CALCIUM 1.11(L) 1.14 - 1.30 mmol/L [facility] Glucose, whole bld 139(H) 70 - 110 mg/dL [facility] HGB (BG) 9.7(L) 13.5 - 17.5 g/dl [facility] O2 Sat (SO2, arterial) 98.7 94.0 - 99.0 % [facility] Blood 02/20/2025 8:30 PM EDT 02/20/2025 8:38 PM EDT us Graciela Peoples PA-C LAB BLOOD ORDERABLES Jeanine sim Result [address] [address] * AMY COMP PROBE PLACED BY ANES W/ COLOR FLOW AND COMP DOPPLER (02/20/2025 3:58 PM EDT) MITRAL VALVE ANNULAR DIAMETER AP DIASTOLIC (3) MM 38 mm MITRAL VALVE C-SEPT (3) MM 30 mm Mitral Valve Peak Gradient 5 mmHg Mitral Valve Mean Gradient 2 mmHg Mitral Valve Prosthetic Peak Gradient 5 mmHg Mitral Valve Prosthetic Mean Gradient 2 mmHg Mitral Valve Gradient HR 67 bpm Anatomical Region Laterality Modality Heart Ultrasound Narrative 02/21/2025 8:31 AM EDT General Findings The image quality was good (2). Status post: valve repair and mitral valve surgery. Consent was obtained from: patient Patient tolerated the procedure well. There were no probe complications noted. Yarn Man Attestation: I have reviewed the images and completed the interpretation and report. Attested by: Marcio Cortez MD Left Ventricle - Pre There is normal left ventricular systolic function. Left Ventricle - Post Left ventricular systolic function is at the lower limits of normal. Right Ventricle - Pre There is normal right ventricular systolic function. Right Ventricle - Post Right ventricular systolic function is at the lower limits of normal. Left Atrium - Pre There is no thrombus detected in limited views of the left atrium or atrial appendage. Left Atrium - Post There is no thrombus detected in limited views of the left atrium or atrial appendage. Right Atrium - Pre There is a catheter present in the SVC. 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 There is severe mitral regurgitation with an anteromedially eccentrically directed jet. 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 The ring is in a stable position. The mitral valve peak and mean gradients are 5 mmHg and 2 mmHg respectively at 67 bpm. There is trace valvular regurgitation. Aortic Valve - Pre The aortic valve is tricuspid. There is no aortic stenosis. There is mild aortic regurgitation. Aortic Valve - Post The aortic valve is tricuspid. There is no aortic stenosis. There is mild aortic regurgitation. There is no aortic dissection in the visualized portions of the aorta. Tricuspid Valve - Pre There is trace to mild tricuspid regurgitation. Tricuspid Valve - Post There is trace tricuspid regurgitation. Pulmonic Valve - Pre The pulmonic valve is suboptimally visualized. Pulmonic Valve - Post The pulmonic valve is suboptimally visualized. Pericardium - Pre There is no pericardial effusion. Pericardium - Post There is no pericardial effusion. IAS/IVS - Pre There is no evidence of patent foramen ovale (PFO). IAS/IVS - Post There is no evidence of patent foramen ovale (PFO) by Doppler. Natalie Acosta MD CV ECHO ORDERABLES Final Result * Creat. Comment (02/20/2025 3:51 PM EDT) Creat Comment Increasing Creatinine Value on your Patient: The calculated GFR may thus overestimate the true GFR and should not be used to guide medication dosing. Negative [facility] 02/20/2025 3:51 PM EDT 02/20/2025 3:58 PM EDT Graciela Minor Shelton LANDERS-C LAB BLOOD ORDERABLES Jeanine l Result [address] [address] * Phosphorus (02/20/2025 3:51 PM EDT) PHOSPHORUS 4.5 2.6 - 4.5 mg/dL [facility] Blood 02/20/2025 3:51 PM EDT 02/20/2025 3:58 PM EDT Graciela Billsmaritza LANDERS-C LAB BLOOD ORDERABLES Jeanine l Result Performing Organization Address [facility] Co de Phone Number [address] [address] * Magnesium (02/20/2025 3:51 PM EDT) MAGNESIUM 2.0 1.7 - 2.4 mg/dL [facility] Blood 02/20/2025 3:51 PM EDT 02/20/2025 3:58 PM EDT Graciela Minor Shelton LANDERS-C LAB BLOOD ORDERABLES Jeanine l Result Performing Organization Address [facility] Co de Phone Number [address] [address] * (ABNORMAL) Basic metabolic panel (02/20/2025 3:51 PM EDT) SODIUM 134(L) 135 - 145 mmol/L [facility] POTASSIUM 5.1(H) 3.4 - 5.0 mmol/L [facility] CHLORIDE 102 98 - 108 mmol/L [facility] CO2 21(L) 23 - 32 mmol/L [facility] BUN 17 8 - 25 mg/dL [facility] CREATININE 1.38(H) 0.60 - 1.30 mg/dL [facility] Comment:INCREASED GLUCOSE 142(H) 70 - 110 mg/dL [facility] CALCIUM 8.6 8.5 - 10.5 mg/dL [facility] EGFR 62 >59 mL/min/1. 73m2 [facility] Comment:Estimated glomerular filtration rate calculated using the CKD-EPI refit equation. ANION GAP 11 3 - 17 mmol/L [facility] Blood 02/20/2025 3:51 PM EDT 02/20/2025 3:58 PM EDT Graciela Peoples PA-C LAB BLOOD ORDERABLES Jeanine l Result [address] [address] * Creat. Comment (02/20/2025 8:58 AM EDT) Creat Comment Increasing Creatinine Value on your Patient: The calculated GFR may thus overestimate the true GFR and should not be used to guide medication dosing. Negative [facility] 02/20/2025 8:58 AM EDT 02/20/2025 9:07 AM EDT Graciela Peoples PA-C LAB BLOOD ORDERABLES Jeanine l Result Performing Organization Address [facility] Co de Phone Number [address] [address] * (ABNORMAL) Basic metabolic panel (02/20/2025 8:58 AM EDT) SODIUM 137 135 - 145 mmol/L [facility] POTASSIUM 5.3(H) 3.4 - 5.0 mmol/L [facility] CHLORIDE 105 98 - 108 mmol/L [facility] CO2 20(L) 23 - 32 mmol/L [facility] BUN 13 8 - 25 mg/dL [facility] CREATININE 1.35(H) 0.60 - 1.30 mg/dL [facility] Comment:INCREASED GLUCOSE 142(H) 70 - 110 mg/dL [facility] CALCIUM 8.9 8.5 - 10.5 mg/dL [facility] EGFR 64 >59 mL/min/1. 73m2 [facility] Comment:Estimated glomerular filtration rate calculated using the CKD-EPI refit equation. ANION GAP 12 3 - 17 mmol/L [facility] Blood 02/20/2025 8:58 AM EDT 02/20/2025 9:07 AM EDT us Graciela Peoples PA-C LAB BLOOD ORDERABLES Jeanine l Result [address] [address] * Prepare RBC, 2 Units (02/20/2025 7:10 AM EDT) Product Code [id number] 02/20/2025 7:10 AM EDT [facility] Unit Number [id number] 02/21/20 7:10 AM EDT [facility] Crossmatch Interpretation Compatible 02/19/2025 3:14 PM EDT [facility] Product Status No Longer Ready 02/20 7:10 AM EDT [facility] ABO/Rh of Unit OPOS 02/20/2025 7:10 AM EDT [facility] Expiration Date/Time 02/20/2025 7:10 AM EDT [facility] Unit Barcode 5100 02/20/2025 7:10 AM EDT [facility] Product Code [id number] 02/20/2025 7:10 AM EDT [facility] Unit Number [id number] 02/21/20 7:10 AM EDT [facility] Crossmatch Interpretation Compatible 02/19/2025 3:14 PM EDT [facility] Product Status No Longer Ready 02/20 7:10 AM EDT [facility] ABO/Rh of Unit OPOS 02/20/2025 7:10 AM EDT [facility] Expiration Date/Time [id number] 02/20/2025 7:10 AM EDT [facility] Unit Barcode 5100 02/20/2025 7:10 AM EDT [facility] 02/05/2025 3:3 3 PM EDT us Colin METZ [facility] PRODUCT ORDERABLES Final Result [address] [address] * (ABNORMAL) Basic metabolic panel (02/20/2025 4:02 AM EDT) SODIUM 136 135 - 145 mmol/L [facility] POTASSIUM 5.0 3.4 - 5.0 mmol/L [facility] CHLORIDE 106 98 - 108 mmol/L [facility] CO2 20(L) 23 - 32 mmol/L [facility] BUN 12 8 - 25 mg/dL [facility] CREATININE 1.07 0.60 - 1.30 mg/dL [facility] GLUCOSE 156(H) 70 - 110 mg/dL [facility] CALCIUM 8.8 8.5 - 10.5 mg/dL [facility] EGFR 84 >59 mL/min/1. 73m2 [facility] Comment:Estimated glomerular filtration rate calculated using the CKD-EPI refit equation. ANION GAP 10 3 - 17 mmol/L [facility] Blood 02/20/2025 4:02 AM EDT 02/20/2025 4:09 AM EDT Graciela Peoples PA-C LAB BLOOD ORDERABLES Jeanine l Result Performing Organization Address City/[facility]/ZIP Co de Phone Number [address] [address] * (ABNORMAL) Oxygen saturation, mixed venous (02/20/2025 3:59 AM EDT) Pathologist [facility] SO2-MIXED (SO2, mixed bld) 58.6(L) 65.0 - 75.0 % [facility] Blood 02/20/2025 3:59 AM EDT 02/20/2025 4:09 AM EDT Graciela Peoples PA-C LAB BLOOD ORDERABLES Jeanine l Result [address] [address] * (ABNORMAL) Arterial blood gas PLUS (02/20/2025 3:59 AM EDT) FIO2 UNSPEC. FIO2/L min [facility] PH 7.32(L) 7.35 - 7.45 [facility] PCO2 40 35 - 42 mm[Hg] [facility] PO2 125(H) 80 - 100 mm[Hg] [facility] Base Excess, unspecified NEG 0.0 - 3.0 mmol/L [facility] Comment:5.4NEG HCO3, unspecified 20(L) 24 - 30 mmol/L [facility] SODIUM 134(L) 135 - 145 mmol/L [facility] POTASSIUM 4.7 3.5 - 5.0 mmol/L [facility] IONIZED CALCIUM 1.23 1.14 - 1.30 mmol/L [facility] Glucose, whole bld 146(H) 70 - 110 mg/dL [facility] HGB (BG) 9.4(L) 13.5 - 17.5 g/dl [facility] O2 Sat (SO2, arterial) 98.7 94.0 - 99.0 % [facility] Blood 02/20/2025 3:59 AM EDT 02/20/2025 4:08 AM EDT Graciela Peoples PA-C LAB BLOOD ORDERABLES Jeanine l Result Performing Organization Address City/[facility]/ZIP Co de Phone Number [address] [address] * Lactate (blood gas) (02/20/2025 3:59 AM EDT) Lactate, blood 1.6 0.5 - 2.0 mmol/L [facility] Blood 02/20/2025 3:59 AM EDT 02/20/2025 4:08 AM EDT Graciela Peoples PA-C LAB BLOOD ORDERABLES Jeanine l Result [address] [address] * (ABNORMAL) POCT Glucose (02/20/2025 3:17 AM EDT) Glucose, POCT 163(H) 70 - 110 mg/dL [facility] 02/20/2025 3:17 AM EDT 02/20/2025 3:19 AM EDT Natalie Acosta MD POINT OF CARE TEST ORDERA BLES Final Result [address] [address] * (ABNORMAL) POCT Glucose (02/20/2025 2:57 AM EDT) Glucose, POCT 138(H) 70 - 110 mg/dL [facility] 02/20/2025 2:57 AM EDT 02/20/2025 3:04 AM EDT us Natalie Acosta MD POINT OF CARE TEST ORDERA BLES Final Result Performing Organization Address City/[facility]/ZIP Co de Phone Number [address] [address] * XR Chest Portable (02/20/2025 2:47 AM EDT) Anatomical Region Laterality Modality Chest Computed Radiogr aphy 02/20/2025 9:36 AM EDT Impressions 02/20/2025 10:08 AM EDT Increased bibasilar opacities suggestive of atelectasis and/or aspiration. Unchanged small right pleural effusion. ATTESTATION: I, Dr. Orlando Laird as teaching physician, have reviewed the images for this case and if necessary edited the report originally created by Luis Ireland. Narrative 02/20/2025 10:08 AM EDT XR CHEST PORTABLE Referring clinician's provided indication for this examination in Epic: [facility]; s/p cardiac surgery COMPARISON: XR CHEST PORTABLE FINDINGS: Devices/Tubes/Lines: Right internal jugular pulmonary catheter tip in the right pulmonary artery. Unchanged right chest tube. Lungs: Low lung volumes. Increase bibasilar opacities. No pulmonary edema. Pleura: Unchanged small right pleural effusion. No pneumothorax. Heart/Mediastinum: Status post mitral valve repair. Unchanged cardiomegaly. Bones/Soft Tissues: Mild gaseous distension of stomach. Bony thorax and extrathoracic soft tissues are unchanged. Procedure Note Orlando Laird MD - 02/20/2025 XR CHEST PORTABLE Referring clinician's provided indication for this examination in [facility]; s/p cardiac surgery COMPARISON: XR CHEST PORTABLE FINDINGS: Devices/Tubes/Lines: Right internal jugular pulmonary catheter tip in theright pulmonary artery. Unchanged right chest tube. Lungs: Low lung volumes. Increase bibasilar opacities. No pulmonaryedema. Pleura: Unchanged small right pleural effusion. No pneumothorax. Heart/Mediastinum: Status post mitral valve repair. Unchangedcardiomegaly. Bones/Soft Tissues: Mild gaseous distension of stomach. Bony thorax andextrathoracic soft tissues are unchanged. IMPRESSION: Increased bibasilar opacities suggestive of atelectasis and/oraspiration. Unchanged small right pleural effusion. ATTESTATION: I, Dr. Orlando Laird as teaching physician, have reviewedthe images for this case and if necessary edited the report originallycreated by Luis Ireland. Graciela Peoples PA-C IMG XR CHEST Final Res ult * (ABNORMAL) LFTs (hepatic panel) (02/20/2025 1:33 AM EDT) ALBUMIN 3.5 3.3 - 5.0 g/dL [facility] TOTAL BILIRUBIN 0.5 0.0 - 1.0 mg/dL [facility] DIRECT BILIRUBIN 0.2 0.0 - 0.3 mg/dL [facility] ALKALINE PHOSPHATASE 82 45 - 115 U/L [facility] AST 130(H) 10 - 40 U/L [facility] ALT 60(H) 10 - 55 U/L [facility] TOTAL PROTEIN 6.1 6.0 - 8.3 g/dL [facility] GLOBULIN 2.6 1.9 - 4.1 g/dL [facility] Blood 02/20/2025 1:33 AM EDT 02/20/2025 1:39 AM EDT Graciela Peoples PA-C LAB BLOOD ORDERABLES Jeanine l Result [facility] [address] [place] [address] * (ABNORMAL) Lipase (02/20/2025 1:33 AM EDT) LIPASE 83(H) 13 - 60 U/L [facility] Blood 02/20/2025 1:33 AM EDT 02/20/2025 1:39 AM EDT Graciela Minor Shelton LANDERS-C LAB BLOOD ORDERABLES Jeanine l Result [address] [address] * Phosphorus (02/20/2025 1:33 AM EDT) PHOSPHORUS 3.9 2.6 - 4.5 mg/dL [facility] Blood 02/20/2025 1:33 AM EDT 02/20/2025 1:39 AM EDT Graciela Billsmaritza LANDERS-C LAB BLOOD ORDERABLES Jeanine l Result Performing Organization Address [facility] Co de Phone Number [address] [address] * Magnesium (02/20/2025 1:33 AM EDT) MAGNESIUM 2.2 1.7 - 2.4 mg/dL [facility] Blood 02/20/2025 1:33 AM EDT 02/20/2025 1:39 AM EDT Graciela Minor Shelton LANDERS-C LAB BLOOD ORDERABLES Jeanine l Result Performing Organization Address [facility] Co de Phone Number [address] [address] * (ABNORMAL) Basic metabolic panel (02/20/2025 1:33 AM EDT) SODIUM 136 135 - 145 mmol/L [facility] POTASSIUM 5.8(H) 3.4 - 5.0 mmol/L [facility] Comment:SPECIMEN NOT HEMOLYZ ED CHLORIDE 106 98 - 108 mmol/L [facility] CO2 19(L) 23 - 32 mmol/L [facility] BUN 12 8 - 25 mg/dL [facility] CREATININE 1.06 0.60 - 1.30 mg/dL [facility] GLUCOSE 158(H) 70 - 110 mg/dL [facility] CALCIUM 8.5 8.5 - 10.5 mg/dL [facility] EGFR 85 >59 mL/min/1. 73m2 [facility] Comment:Estimated glomerular filtration rate calculated using the CKD-EPI refit equation. ANION GAP 11 3 - 17 mmol/L [facility] Blood 02/20/2025 1:33 AM EDT 02/20/2025 1:39 AM EDT us Graciela Peoples PA-C LAB BLOOD ORDERABLES Jeanine l Result [address] [address] * PTT (02/20/2025 1:33 AM EDT) APTT 27.0 24.0 - 37.5 sec [facility] Comment:Check MAR for the ta rget range that is ordered for your patient. Blood 02/20/2025 1:33 AM EDT 02/20/2025 1:38 AM EDT us Graciela Peoples PA-C LAB BLOOD ORDERABLES Jeanine l Result Performing Organization Address City/[facility]/ZIP Co de Phone Number [address] [address] * PT-INR (02/20/2025 1:33 AM EDT) PT 11.3 10.0 - 13.0 sec [facility] INR 1.0 0.9 - 1.1 [facility] Blood 02/20/2025 1:33 AM EDT 02/20/2025 1:38 AM EDT us Graciela Peoples PA-C LAB BLOOD ORDERABLES Jeanine l Result Performing Organization Address City/[facility]/ZIP Co de Phone Number [address] [address] * (ABNORMAL) CBC (02/20/2025 1:33 AM EDT) WBC 12.65(H) 4.00 - 11.00 K/uL [facility] RBC 3.63(L) 4.50 - 5.90 M/uL [facility] HGB 9.7(L) 13.5 - 17.5 g/dL [facility] HCT 31.9(L) 41.0 - 53.0 % [facility] PLT 125(L) 150 - 450 K/uL [facility] MCV 87.9 80.0 - 100.0 fL [facility] MCH 26.7(L) 27.0 - 31.0 pg [facility] MCHC 30.4(L) 32.0 - 36.0 g/dL [facility] RDW 21.7(H) 11.5 - 14.5 % [facility] MPV 10.3 8.4 - 12.0 fL [facility] NRBC 0.00 0.00 /100 WBCs [facility] ABSOLUTE NRBC 0.00 0.00 K/uL [facility] Blood 02/20/2025 1:33 AM EDT 02/20/2025 1:39 AM EDT Graciela Peoples PA-C LAB BLOOD ORDERABLES Jeanine l Result Performing Organization Address City/[facility] Co de Phone Number [address] [address] * (ABNORMAL) Oxygen saturation, mixed venous (02/20/2025 1:02 AM EDT) SO2-MIXED (SO2, mixed bld) 57.8(L) 65.0 - 75.0 % [facility] Blood 02/20/2025 1:02 AM EDT 02/20/2025 1:13 AM EDT Graciela Peoples PA-C LAB BLOOD ORDERABLES Jeanine l Result [address] [address] * (ABNORMAL) Arterial blood gas PLUS (02/20/2025 1:02 AM EDT) FIO2 UNSPEC. FIO2/L min [facility] PH 7.32(L) 7.35 - 7.45 [facility] PCO2 41 35 - 42 mm[Hg] [facility] PO2 103(H) 80 - 100 mm[Hg] [facility] Base Excess, unspecified NEG 0.0 - 3.0 mmol/L [facility] [facility] Comment:5.3NEG HCO3, unspecified 20(L) 24 - 30 mmol/L [facility] SODIUM 135 135 - 145 mmol/L [facility] POTASSIUM 5.7(H) 3.5 - 5.0 mmol/L [facility] IONIZED CALCIUM 1.11(L) 1.14 - 1.30 mmol/L [facility] Glucose, whole bld 132(H) 70 - 110 mg/dL [facility] HGB (BG) 10.1(L) 13.5 - 17.5 g/dl [facility] O2 Sat (SO2, arterial) 97.4 94.0 - 99.0 % [facility] Blood 02/20/2025 1:02 AM EDT 02/20/2025 1:13 AM EDT Graciela Peoples PA-C LAB BLOOD ORDERABLES Jeanine l Result Performing Organization Address City/[facility]/ZIP Co de Phone Number [address] [address] * Lactate (blood gas) (02/20/2025 1:02 AM EDT) Lactate, blood 1.1 0.5 - 2.0 mmol/L [facility] Blood 02/20/2025 1:02 AM EDT 02/20/2025 1:13 AM EDT Graciela Peoples PA-C LAB BLOOD ORDERABLES Jeanine l Result Performing Organization Address City/[facility]/ZIP Co de Phone Number [address] [address] * (ABNORMAL) Arterial blood gas PLUS (02/19/2025 8:42 PM EDT) FIO2 2LNC FIO2/L min [facility] PH 7.37 7.35 - 7.45 [facility] PCO2 39 35 - 42 mm[Hg] [facility] PO2 126(H) 80 - 100 mm[Hg] [facility] Base Excess, unspecified NEG 0.0 - 3.0 mmol/L [facility] Comment:3.3NEG HCO3, unspecified 22(L) 24 - 30 mmol/L [facility] SODIUM 135 135 - 145 mmol/L [facility] POTASSIUM 4.9 3.5 - 5.0 mmol/L [facility] IONIZED CALCIUM 1.14 1.14 - 1.30 mmol/L [facility] Comment:RESULT VERIFIED Glucose, whole bld 127(H) 70 - 110 mg/dL [facility] HGB (BG) 9.7(L) 13.5 - 17.5 g/dl [facility] O2 Sat (SO2, arterial) 99.2(H) 94.0 - 99.0 % [facility] Blood 02/19/2025 8:42 PM EDT 02/19/2025 8:55 PM EDT us Graciela Peoples PA-C LAB BLOOD ORDERABLES Jeanine l Result Performing Organization Address [facility] Co de Phone Number [address] [address] * Lactate (blood gas) (02/19/2025 8:42 PM EDT) Lactate, blood 0.9 0.5 - 2.0 mmol/L [facility] Blood 02/19/2025 8:42 PM EDT 02/19/2025 8:55 PM EDT Graciela Peoples PA-C LAB BLOOD ORDERABLES Jeanine l Result Performing Organization Address City/[facility] Co de Phone Number [address] [address] * (ABNORMAL) Oxygen saturation, mixed venous (02/19/2025 8:42 PM EDT) SO2-MIXED (SO2, mixed bld) 57.5(L) 65.0 - 75.0 % [facility] Blood 02/19/2025 8:42 PM EDT 02/19/2025 8:56 PM EDT Graciela Peoples PA-C LAB BLOOD ORDERABLES Jeanine l Result [address] [address] * Lactate (blood gas) (02/19/2025 5:22 PM EDT) Lactate, blood 0.9 0.5 - 2.0 mmol/L [facility] Blood 02/19/2025 5:22 PM EDT 02/19/2025 5:26 PM EDT us Graciela Peoples PA-C LAB BLOOD ORDERABLES Jeanine l Result Performing Organization Address [facility] Co de Phone Number [address] [address] * (ABNORMAL) Arterial blood gas PLUS (02/19/2025 5:22 PM EDT) FIO2 4LNC FIO2/L min [facility] PH 7.35 7.35 - 7.45 [facility] PCO2 39 35 - 42 mm[Hg] [facility] PO2 167(H) 80 - 100 mm[Hg] [facility] Base Excess, unspecified NEG 0.0 - 3.0 mmol/L [facility] Comment:3.9NEG HCO3, unspecified 21(L) 24 - 30 mmol/L [facility] SODIUM 136 135 - 145 mmol/L [facility] POTASSIUM 4.5 3.5 - 5.0 mmol/L [facility] IONIZED CALCIUM 1.22 1.14 - 1.30 mmol/L [facility] Glucose, whole bld 112(H) 70 - 110 mg/dL [facility] HGB (BG) 9.4(L) 13.5 - 17.5 g/dl [facility] O2 Sat (SO2, arterial) 99.4(H) 94.0 - 99.0 % [facility] Blood 02/19/2025 5:22 PM EDT 02/19/2025 5:26 PM EDT Graciela Peoples PA-C LAB BLOOD ORDERABLES Jeanine l Result Performing Organization Address City/[facility] Co de Phone Number [address] [address] * Lactate (blood gas) (02/19/2025 4:50 PM EDT) Pathologist [facility] Lactate, blood 0.8 0.5 - 2.0 mmol/L [facility] Blood 02/19/2025 4:50 PM EDT 02/19/2025 4:58 PM EDT Graciela Peoples PA-C LAB BLOOD ORDERABLES Jeanine l Result Performing Organization Address City/[facility] Co de Phone Number [address] [address] * (ABNORMAL) Arterial blood gas PLUS (02/19/2025 4:50 PM EDT) [facility] FIO2 PSV 5/5 FIO2/L min [facility] PH 7.37 7.35 - 7.45 [facility] PCO2 38 35 - 42 mm[Hg] [facility] PO2 138(H) 80 - 100 mm[Hg] [facility] Base Excess, unspecified NEG 0.0 - 3.0 mmol/L [facility] Comment:3.7NEG HCO3, unspecified 21(L) 24 - 30 mmol/L [facility] SODIUM 135 135 - 145 mmol/L [facility] POTASSIUM 4.4 3.5 - 5.0 mmol/L [facility] IONIZED CALCIUM 1.24 1.14 - 1.30 mmol/L [facility] Comment:RESULT VERIFIED Glucose, whole bld 102 70 - 110 mg/dL [facility] HGB (BG) 8.9(L) 13.5 - 17.5 g/dl [facility] O2 Sat (SO2, arterial) 99.4(H) 94.0 - 99.0 % [facility] Blood 02/19/2025 4:50 PM EDT 02/19/2025 4:58 PM EDT Graciela Peoples PA-C LAB BLOOD ORDERABLES Jeanine l Result Performing Organization Address City/[facility]/ZIP Co de Phone Number [address] [address] * (ABNORMAL) Arterial blood gas PLUS (02/19/2025 3:21 PM EDT) FIO2 ACVC FIO2/L min [facility] Comment:.30 PH 7.41 7.35 - 7.45 [facility] PCO2 38 35 - 42 mm[Hg] [facility] PO2 113(H) 80 - 100 mm[Hg] [facility] Base Excess, unspecified NEG 0.0 - 3.0 mmol/L [facility] Comment:1.3NEG HCO3, unspecified 23(L) 24 - 30 mmol/L [facility] SODIUM 137 135 - 145 mmol/L [facility] POTASSIUM 4.4 3.5 - 5.0 mmol/L [facility] IONIZED CALCIUM 1.05(L) 1.14 - 1.30 mmol/L [facility] Glucose, whole bld 94 70 - 110 mg/dL [facility] HGB (BG) 9.2(L) 13.5 - 17.5 g/dl [facility] O2 Sat (SO2, arterial) 98.7 94.0 - 99.0 % [facility] Blood 02/19/2025 3:21 PM EDT 02/19/2025 3:25 PM EDT Graciela Peoples PA-C LAB BLOOD ORDERABLES Jeanine l Result Performing Organization Address City/State/[facility] Co de Phone Number [address] [address] * Lactate (blood gas) (02/19/2025 3:21 PM EDT) Lactate, blood 1.4 0.5 - 2.0 mmol/L [facility] Blood 02/19/2025 3:21 PM EDT 02/19/2025 3:25 PM EDT Gracielazia Peoples PA-C LAB BLOOD ORDERABLES Jeanine l Result [address] [address] * XR Chest Portable (02/19/2025 2:55 PM EDT) Anatomical Region Laterality Modality Chest Computed Radiogr aphy 02/19/2025 4:24 PM EDT Impressions 02/19/2025 4:26 PM EDT Post surgical changes, tubes and lines as described. Patchy areas of opacity in lung bases likely represent areas of atelectasis. Thickening of right pleural stripe may be related to pleural thickening, extrapleural thickening, and/or small right pleural effusion. Narrative 02/19/2025 4:26 PM EDT XR CHEST PORTABLE Referring clinician's provided indication for this examination in [facility]: [facility]; s/p cardiac surgery COMPARISON: XR CHEST PA AND LATERAL 2 VIEWS FINDINGS: Devices/Tubes/Lines: Status post mitral valve replacement. There is an endotracheal tube with distal tip 5.1 cm above the vimal. A pulmonary artery catheter is demonstrated with distal tip overlying the main pulmonary artery. A nasogastric tube is demonstrated with distal tip below the diaphragm, not included on the inferior aspect of the image. There is a mediastinal tube in place. Right-sided chest tube extends to lateral right apex. Lungs: There are patchy areas of opacity present in the lung bases. There is no evidence for pulmonary edema. Pleura: There is thickening of the right pleural stripe. No evidence for pneumothorax. Heart/Mediastinum: The cardiac silhouette is within normal limits in size. The examination is obtained in lordotic patient positioning. Bones/Soft Tissues: There is a small amount of subcutaneous emphysema in the right chest wall. Bony thorax is unchanged. Procedure Note Samm Booker MD - 02/19/2025 XR CHEST PORTABLE Referring clinician's provided indication for this examination in [facility]; s/p cardiac surgery COMPARISON: XR CHEST PA AND LATERAL 2 VIEWS FINDINGS: Devices/Tubes/Lines: Status post mitral valve replacement. There is anendotracheal tube with distal tip 5.1 cm above the vimal. A pulmonaryartery catheter is demonstrated with distal tip overlying the mainpulmonary artery. A nasogastric tube is demonstrated with distal tip belowthe diaphragm, not included on the inferior aspect of the image. There esther mediastinal tube in place. Right-sided chest tube extends to lateralright apex. Lungs: There are patchy areas of opacity present in the lung bases. Thereis no evidence for pulmonary edema. Pleura: There is thickening of the right pleural stripe. No evidence forpneumothorax. Heart/Mediastinum: The cardiac silhouette is within normal limits in size.The examination is obtained in lordotic patient positioning. Bones/Soft Tissues: There is a small amount of subcutaneous emphysema inthe right chest wall. Bony thorax is unchanged. IMPRESSION: Post surgical changes, tubes and lines as described. Patchy areas of opacity in lung bases likely represent areas ofatelectasis. Thickening of right pleural stripe may be related to pleural thickening,extrapleural thickening, and/or small right pleural effusion. us Graciela Peoples PA-C IMG XR CHEST Final Res ult * Vancomycin Resistant Enterococci (VRE), Rectal Screen (02/19/2025 2:40 PM EDT) Special Requests No Special Requests 02/19/2025 2:38 PM EDT [facility] VRE Rectal Culture NEGATIVE FOR VRE 02/20/2025 3:16 PM EDT [facility] Stool (Rectal) 02/19/2025 2: 40 PM EDT 02/19/2025 5:07 PM EDT us Graciela RECINOSC MICROBIOLOGY - GENERAL OR DERABLES Final Result Performing Organization Address City/[facility]/ZIP Co de Phone Number [address] [address] * MRSA Nasal Screen (02/19/2025 2:40 PM EDT) Special Requests No Special Requests 02/19/2025 2:38 PM EDT [facility] MRSA Nasal Culture NEGATIVE FOR MRSA 02/20/2025 1:35 PM EDT [facility] Other (Nasal) 02/19/2025 2:4 0 PM EDT 02/19/2025 5:08 PM EDT us Graciela RECINOSC MICROBIOLOGY - GENERAL OR DERABLES Final Result [address] [address] * Oxygen saturation, mixed venous (02/19/2025 2:38 PM EDT) SO2-MIXED (SO2, mixed bld) 72.6 65.0 - 75.0 % [facility] Blood 02/19/2025 2:38 PM EDT 02/19/2025 2:44 PM EDT Graciela Peoples PA-C LAB BLOOD ORDERABLES Jeanine l Result Performing Organization Address City/[facility] Co de Phone Number [address] [address] * (ABNORMAL) Arterial blood gas PLUS (02/19/2025 2:38 PM EDT) FIO2 50% PEEP 5 FIO2/L min [facility] PH 7.39 7.35 - 7.45 [facility] PCO2 34(L) 35 - 42 mm[Hg] [facility] PO2 190(H) 80 - 100 mm[Hg] [facility] Base Excess, unspecified NEG 0.0 - 3.0 mmol/L [facility] Comment:4.0NEG HCO3, unspecified 20(L) 24 - 30 mmol/L [facility] SODIUM 136 135 - 145 mmol/L [facility] POTASSIUM 4.1 3.5 - 5.0 mmol/L [facility] IONIZED CALCIUM 1.16 1.14 - 1.30 mmol/L [facility] Glucose, whole bld 101 70 - 110 mg/dL [facility] HGB (BG) 8.8(L) 13.5 - 17.5 g/dl [facility] O2 Sat (SO2, arterial) 99.6(H) 94.0 - 99.0 % [facility] Blood 02/19/2025 2:38 PM EDT 02/19/2025 2:45 PM EDT Graciela Peoples PA-C LAB BLOOD ORDERABLES Jeanine l Result Performing Organization Address City/[facility]/ZIP Co de Phone Number [address] [address] * Lactate (blood gas) (02/19/2025 2:38 PM EDT) Lactate, blood 1.8 0.5 - 2.0 mmol/L [facility] Blood 02/19/2025 2:38 PM EDT 02/19/2025 2:45 PM EDT Graciela Peoples PA-C LAB BLOOD ORDERABLES Jeanine l Result [address] [address] * (ABNORMAL) CBC (02/19/2025 2:38 PM EDT) WBC 10.41 4.00 - 11.00 K/uL [facility] RBC 3.23(L) 4.50 - 5.90 M/uL [facility] HGB 8.6(L) 13.5 - 17.5 g/dL [facility] HCT 28.2(L) 41.0 - 53.0 % [facility] PLT 95(L) 150 - 450 K/uL [facility] MCV 87.3 80.0 - 100.0 fL [facility] MCH 26.6(L) 27.0 - 31.0 pg [facility] MCHC 30.5(L) 32.0 - 36.0 g/dL [facility] RDW 21.2(H) 11.5 - 14.5 % [facility] MPV 9.8 8.4 - 12.0 fL [facility] NRBC 0.00 0.00 /100 WBCs [facility] ABSOLUTE NRBC 0.00 0.00 K/uL [facility] Blood 02/19/2025 2:38 PM EDT 02/19/2025 2:44 PM EDT Graciela Peoples PA-C LAB BLOOD ORDERABLES Jeanine l Result [address] [address] * PT-INR (02/19/2025 2:38 PM EDT) PT 11.8 10.0 - 13.0 sec [facility] INR 1.0 0.9 - 1.1 [facility] Blood 02/19/2025 2:38 PM EDT 02/19/2025 2:44 PM EDT Gracielazia Peoples PA-C LAB BLOOD ORDERABLES Jeanine l Result Performing Organization Address City/[facility]/ZIP Co de Phone Number [address] [address] * PTT (02/19/2025 2:38 PM EDT) APTT 29.6 24.0 - 37.5 sec [facility] Comment:Check MAR for the ta rget range that is ordered for your patient. Blood 02/19/2025 2:38 PM EDT 02/19/2025 2:44 PM EDT Graciela Mily Peoples PA-C LAB BLOOD ORDERABLES Jeanine l Result Performing Organization Address [facility] Co de Phone Number [address] [address] * (ABNORMAL) Basic metabolic panel (02/19/2025 2:38 PM EDT) SODIUM 139 135 - 145 mmol/L [facility] POTASSIUM 4.5 3.4 - 5.0 mmol/L [facility] CHLORIDE 108 98 - 108 mmol/L [facility] CO2 20(L) 23 - 32 mmol/L [facility] BUN 12 8 - 25 mg/dL [facility] CREATININE 0.92 0.60 - 1.30 mg/dL [facility] GLUCOSE 106 70 - 110 mg/dL [facility] CALCIUM 8.1(L) 8.5 - 10.5 mg/dL [facility] EGFR 101 >59 mL/min/1. 73m2 [facility] Comment:Estimated glomerular filtration rate calculated using the CKD-EPI refit equation. ANION GAP 11 3 - 17 mmol/L [facility] Blood 02/19/2025 2:38 PM EDT 02/19/2025 2:44 PM EDT Graciela Peoples PA-C LAB BLOOD ORDERABLES Jeanine l Result Performing Organization Address City/[facility]/ZIP Co de Phone Number [address] [address] * (ABNORMAL) Magnesium (02/19/2025 2:38 PM EDT) MAGNESIUM 2.9(H) 1.7 - 2.4 mg/dL [facility] Blood 02/19/2025 2:38 PM EDT 02/19/2025 2:44 PM EDT Graciela Billsmaritza LANDERS-C LAB BLOOD ORDERABLES Jeanine l Result Performing Organization Address City/[facility] Co de Phone Number [address] [address] * Phosphorus (02/19/2025 2:38 PM EDT) PHOSPHORUS 2.8 2.6 - 4.5 mg/dL [facility] Blood 02/19/2025 2:38 PM EDT 02/19/2025 2:44 PM EDT Graciela Billsmaritza [facility]-C LAB BLOOD ORDERABLES Jeanine l Result Performing Organization Address [facility] Co de Phone Number [address] [address] * (ABNORMAL) Lipase (02/19/2025 2:38 PM EDT) Pathologist [facility] LIPASE 112(H) 13 - 60 U/L [facility] Blood 02/19/2025 2:38 PM EDT 02/19/2025 2:44 PM EDT Graciela Billsmaritza [facility]-C LAB BLOOD ORDERABLES Jeanine l Result Performing Organization Address [facility] Co de Phone Number [address] [address] * (ABNORMAL) LFTs (hepatic panel) (02/19/2025 2:38 PM EDT) ALBUMIN 2.8(L) 3.3 - 5.0 g/dL [facility] TOTAL BILIRUBIN 0.3 0.0 - 1.0 mg/dL [facility] DIRECT BILIRUBIN 0.1 0.0 - 0.3 mg/dL [facility] Comment:HEMOLYZED SPECIMEN ALKALINE PHOSPHATASE 70 45 - 115 U/L [facility] AST 134(H) 10 - 40 U/L [facility] ALT 52 10 - 55 U/L [facility] TOTAL PROTEIN 4.6(L) 6.0 - 8.3 g/dL [facility] GLOBULIN 1.8(L) 1.9 - 4.1 g/dL [facility] Blood 02/19/2025 2:38 PM EDT 02/19/2025 2:44 PM EDT Graciela Peoples PA-C LAB BLOOD ORDERABLES Jeanine l Result Performing Organization Address [facility]/ZIP Co de Phone Number [address] [address] * (ABNORMAL) Fibrinogen (02/19/2025 1:51 PM EDT) FIBRINOGEN 166(L) 200 - 400 mg/dL [facility] Blood 02/19/2025 1:51 PM EDT 02/19/2025 1:57 PM EDT Colin METZ LAB BLOOD ORDERABLES Final Res ult Performing Organization Address [facility] Co de Phone Number [address] [address] * PTT (02/19/2025 1:51 PM EDT) APTT 29.1 24.0 - 37.5 sec [facility] Comment:Check MAR for the ta rget range that is ordered for your patient. Blood 02/19/2025 1:51 PM EDT 02/19/2025 1:57 PM EDT Colin SY LAB BLOOD ORDERABLES Final Res ult Performing Organization Address [facility] Co de Phone Number [address] [address] * PT-INR (02/19/2025 1:51 PM EDT) PT 12.7 10.0 - 13.0 sec [facility] INR 1.1 0.9 - 1.1 [facility] Blood 02/19/2025 1:51 PM EDT 02/19/2025 1:57 PM EDT Colin METZ LAB BLOOD ORDERABLES Final Res ult [address] [address] * (ABNORMAL) CBC (02/19/2025 1:51 PM EDT) WBC 11.18(H) 4.00 - 11.00 K/uL [facility] RBC 2.86(L) 4.50 - 5.90 M/uL [facility] HGB 7.8(L) 13.5 - 17.5 g/dL [facility] HCT 25.3(L) 41.0 - 53.0 % [facility] PLT 95(L) 150 - 450 K/uL [facility] MCV 88.5 80.0 - 100.0 fL [facility] MCH 27.3 27.0 - 31.0 pg [facility] MCHC 30.8(L) 32.0 - 36.0 g/dL [facility] RDW 21.4(H) 11.5 - 14.5 % [facility] MPV 10.3 8.4 - 12.0 fL [facility] NRBC 0.00 0.00 /100 WBCs [facility] ABSOLUTE NRBC 0.00 0.00 K/uL [facility] Blood 02/19/2025 1:51 PM EDT 02/19/2025 1:57 PM EDT Colin METZ LAB BLOOD ORDERABLES Final Res ult [address] [address] * (ABNORMAL) Lactate (blood gas) (02/19/2025 1:51 PM EDT) Lactate, blood 2.3(H) 0.5 - 2.0 mmol/L [facility] Blood 02/19/2025 1:51 PM EDT 02/19/2025 1:57 PM EDT Colin METZ LAB BLOOD ORDERABLES Final Res ult Performing Organization Address [facility] de Phone Number [address] [address] * (ABNORMAL) Arterial blood gas PLUS (02/19/2025 1:51 PM EDT) FIO2 UNSPEC. FIO2/L min [facility] PH 7.27(L) 7.35 - 7.45 [facility] PCO2 48(H) 35 - 42 mm[Hg] [facility] PO2 96 80 - 100 mm[Hg] [facility] Base Excess, unspecified NEG 0.0 - 3.0 mmol/L [facility] Comment:4.9NEG HCO3, unspecified 22(L) 24 - 30 mmol/L [facility] SODIUM 137 135 - 145 mmol/L [facility] POTASSIUM 4.2 3.5 - 5.0 mmol/L [facility] IONIZED CALCIUM 1.10(L) 1.14 - 1.30 mmol/L [facility] Glucose, whole bld 129(H) 70 - 110 mg/dL [facility] HGB (BG) 8.5(L) 13.5 - 17.5 g/dl [facility] O2 Sat (SO2, arterial) 96.6 94.0 - 99.0 % [facility] Blood 02/19/2025 1:51 PM EDT 02/19/2025 1:57 PM EDT us Colin METZ LAB BLOOD ORDERABLES Final Res ult Performing Organization Address [facility] Co de Phone Number [address] [address] * POCT ACT from cardiac OR (02/19/2025 1:48 PM EDT) ACT FROM CARDIAC OR 106 90 - 130 sec [facility] 02/19/2025 1:48 PM EDT 02/19/2025 1:47 PM EDT Natalie Acosta MD POINT OF CARE TEST ORDERA BLES Final Result [address] [address] * POCT Heparin Protamine Titration (02/19/2025 1:48 PM EDT) Heparin Protamine Titration 0.0 u/ml [facility] Misc Test Ref Range 0.0-1.2 u/ml [facility] Comment (Coag) Red [facility] 02/19/2025 1:48 PM EDT 02/19/2025 1:47 PM EDT us Natalie Acosta MD POINT OF CARE TEST ORDERA BLES Final Result Performing Organization Address [facility]/ZIP Co de Phone Number [address] [address] * (ABNORMAL) POCT ACT from cardiac OR (02/19/2025 1:13 PM EDT) ACT FROM CARDIAC OR 376(H) 90 - 130 sec [facility] 02/19/2025 1:13 PM EDT 02/19/2025 1:26 PM EDT us Natalie Acosta MD POINT OF CARE TEST ORDERA BLES Final Result Performing Organization Address City/[facility]/ZIP Co de Phone Number [address] [address] * POCT Heparin Protamine Titration (02/19/2025 1:11 PM EDT) Heparin Protamine Titration 2.0 u/ml [facility] Misc Test Ref Range 0.0-3.4 u/ml [facility] Comment (Coag) [place] [facility] 02/19/2025 1:11 PM EDT 02/19/2025 1:09 PM EDT us Natalie Acosta MD POINT OF CARE TEST ORDERA BLES Final Result [address] [address] * (ABNORMAL) PUMP BLOOD GAS PLUS (02/19/2025 1:03 PM EDT) FIO2/FLOW CPB FIO2/L min [facility] TEMP. 37.0 deg C [facility] PH(UNCORRECTED) 7.30 [facility] PH 7.30(L) 7.32 - 7.45 [facility] PCO2(UNCORRECTE D) 46 mm[Hg] [facility] PCO2 46 35 - 50 mm[Hg] [facility] PO2(UNCORRECTED ) 260 mm[Hg] [facility] PO2 260(H) 40 - 90 mm[Hg] [facility] Base Excess, unspecified NEG 0.0 - 3.0 mmol/L [facility] Comment:4.2NEG HCO3, unspecified 22(L) 24 - 30 mmol/L [facility] SODIUM 134(L) 135 - 145 mmol/L [facility] POTASSIUM 4.8 3.5 - 5.0 mmol/L [facility] HGB (BG) 7.8(L) 13.5 - 17.5 g/dl [facility] IONIZED CALCIUM 1.26 1.14 - 1.30 mmol/L [facility] Glucose, whole bld 161(H) 70 - 110 mg/dL [facility] SO2, unspecified 99.8 94.0 - 99.9 % [facility] Comment: SO2 Reference Range: Arterial: 94.0-99.9 Venous: 60.0-85.0 Blood 02/19/2025 1:03 PM EDT 02/19/2025 1:08 PM EDT us Colin METZ LAB BLOOD ORDERABLES Final Res ult [facility] [address] [place] [address] * (ABNORMAL) Lactate (blood gas) (02/19/2025 1:03 PM EDT) Lactate, blood 2.4(H) 0.5 - 2.0 mmol/L [facility] Blood 02/19/2025 1:03 PM EDT 02/19/2025 1:08 PM EDT us Colin METZ LAB BLOOD ORDERABLES Final Res ult Performing Organization Address [facility]/ZIP Co de Phone Number [address] [address] * RBCs (02/19/2025 12:52 PM EDT) us Colin METZ NURSING TREATMENT ORDERABLES - ASSIGN Final Result * (ABNORMAL) POCT ACT from cardiac OR (02/19/2025 12:37 PM EDT) ACT FROM CARDIAC OR 433(H) 90 - 130 sec [facility] 02/19/2025 12:3 7 PM EDT 02/19/2025 12:41 PM EDT us Natalie Acosta MD POINT OF CARE TEST ORDERA BLES Final Result Performing Organization Address [facility] Co de Phone Number [address] [address] * POCT Heparin Protamine Titration (02/19/2025 12:35 PM EDT) Pathologist [facility] Heparin Protamine Titration 2.0 u/ml [facility] Misc Test Ref Range 0.0-3.4 u/ml [facility] Comment (Coag) [place] [facility] 02/19/2025 12:3 5 PM EDT 02/19/2025 12:33 PM EDT us Natalie Acosta MD POINT OF CARE TEST ORDERA BLES Final Result Performing Organization Address City/[facility]/ZIP Co de Phone Number [address] [address] * (ABNORMAL) PUMP BLOOD GAS PLUS (02/19/2025 12:30 PM EDT) FIO2/FLOW CPB FIO2/L min [facility] TEMP. 37.0 deg C [facility] PH(UNCORRECTED) 7.42 [facility] PH 7.42 7.32 - 7.45 [facility] PCO2(UNCORRECTE D) 36 mm[Hg] [facility] PCO2 36 35 - 50 mm[Hg] [facility] PO2(UNCORRECTED ) 264 mm[Hg] [facility] PO2 264(H) 40 - 90 mm[Hg] [facility] Base Excess, unspecified NEG 0.0 - 3.0 mmol/L [facility] Comment:1.1NEG HCO3, unspecified 23(L) 24 - 30 mmol/L [facility] SODIUM 135 135 - 145 mmol/L [facility] POTASSIUM 5.5(H) 3.5 - 5.0 mmol/L [facility] HGB (BG) 7.4(L) 13.5 - 17.5 g/dl [facility] IONIZED CALCIUM 0.89(L) 1.14 - 1.30 mmol/L [facility] Glucose, whole bld 167(H) 70 - 110 mg/dL [facility] SO2, unspecified 99.7 94.0 - 99.9 % [facility] Comment: SO2 Reference Range: Arterial: 94.0-99.9 Venous: 60.0-85.0 Blood 02/19/2025 12:3 0 PM EDT 02/19/2025 12:36 PM EDT Colin Layne [facility] LAB BLOOD ORDERABLES Final Res ult Performing Organization Address City/[facility] Co de Phone Number [address] [address] * Lactate (blood gas) (02/19/2025 12:30 PM EDT) Lactate, blood 1.5 0.5 - 2.0 mmol/L [facility] Blood 02/19/2025 12:3 0 PM EDT 02/19/2025 12:36 PM EDT Colin Layne [facility] LAB BLOOD ORDERABLES Final Res ult Performing Organization Address City/[facility]/ZIP Co de Phone Number [address] [address] * (ABNORMAL) POCT ACT from cardiac OR (02/19/2025 12:05 PM EDT) ACT FROM CARDIAC OR 416(H) 90 - 130 sec [facility] 02/19/2025 12:0 5 PM EDT 02/19/2025 12:09 PM EDT us Natalie Acosta MD POINT OF CARE TEST ORDERA BLES Final Result Performing Organization Address City/[facility]/ZIP Co de Phone Number [address] [address] * POCT Heparin Protamine Titration (02/19/2025 12:03 PM EDT) Heparin Protamine Titration 2.0 u/ml [facility] Misc Test Ref Range 0.0-3.4 u/ml [facility] Comment (Coag) [place] [facility] 02/19/2025 12:0 3 PM EDT 02/19/2025 12:02 PM EDT us Natalie Acosta MD POINT OF CARE TEST ORDERA BLES Final Result Performing Organization Address [facility] Co de Phone Number [address] [address] * (ABNORMAL) PUMP BLOOD GAS PLUS (02/19/2025 11:58 AM EDT) FIO2/FLOW CPB FIO2/L min [facility] TEMP. 37.0 deg C [facility] PH(UNCORRECTED) 7.38 [facility] PH 7.38 7.32 - 7.45 [facility] PCO2(UNCORRECTE D) 41 mm[Hg] [facility] PCO2 41 35 - 50 mm[Hg] [facility] PO2(UNCORRECTED ) 278 mm[Hg] [facility] PO2 278(H) 40 - 90 mm[Hg] [facility] Base Excess, unspecified NEG 0.0 - 3.0 mmol/L [facility] Comment:1.7NEG HCO3, unspecified 23(L) 24 - 30 mmol/L [facility] SODIUM 135 135 - 145 mmol/L [facility] POTASSIUM 5.2(H) 3.5 - 5.0 mmol/L [facility] HGB (BG) 7.7(L) 13.5 - 17.5 g/dl [facility] IONIZED CALCIUM 0.89(L) 1.14 - 1.30 mmol/L [facility] Glucose, whole bld 167(H) 70 - 110 mg/dL [facility] SO2, unspecified 99.7 94.0 - 99.9 % [facility] Comment: SO2 Reference Range: Arterial: 94.0-99.9 Venous: 60.0-85.0 Blood 02/19/2025 11:5 8 AM EDT 02/19/2025 12:03 PM EDT Colin SY LAB BLOOD ORDERABLES Final Res ult Performing Organization Address City/[facility]/ZIP Co de Phone Number [address] [address] * Lactate (blood gas) (02/19/2025 11:58 AM EDT) Lactate, blood 1.1 0.5 - 2.0 mmol/L [facility] Blood 02/19/2025 11:5 8 AM EDT 02/19/2025 12:03 PM EDT Colin METZ LAB BLOOD ORDERABLES Final Res ult Performing Organization Address [facility] Co de Phone Number [address] [address] * (ABNORMAL) POCT ACT from cardiac OR (02/19/2025 11:36 AM EDT) ACT FROM CARDIAC OR 464(H) 90 - 130 sec [facility] 02/19/2025 11:3 6 AM EDT 02/19/2025 11:41 AM EDT us Natalie Acosta MD POINT OF CARE TEST ORDERA BLES Final Result Performing Organization Address City/[facility] Co de Phone Number [address] [address] * POCT Heparin Protamine Titration (02/19/2025 11:34 AM EDT) Heparin Protamine Titration 2.0 u/ml [facility] Misc Test Ref Range 0.0-3.4 u/ml [facility] Comment (Coag) [place] [facility] 02/19/2025 11:3 4 AM EDT 02/19/2025 11:33 AM EDT us Natalie Acosta MD POINT OF CARE TEST ORDERA BLES Final Result Performing Organization Address City/[facility] Co de Phone Number [facility] [address] [place] [address] * (ABNORMAL) PUMP BLOOD GAS PLUS (02/19/2025 11:29 AM EDT) FIO2/FLOW CPB FIO2/L min [facility] TEMP. 37.0 deg C [facility] PH(UNCORRECTED) 7.35 [facility] PH 7.35 7.32 - 7.45 [facility] PCO2(UNCORRECTE D) 42 mm[Hg] [facility] PCO2 42 35 - 50 mm[Hg] [facility] PO2(UNCORRECTED ) 244 mm[Hg] [facility] PO2 244(H) 40 - 90 mm[Hg] [facility] Base Excess, unspecified NEG 0.0 - 3.0 mmol/L [facility] Comment:2.8NEG HCO3, unspecified 23(L) 24 - 30 mmol/L [facility] SODIUM 136 135 - 145 mmol/L [facility] POTASSIUM 4.7 3.5 - 5.0 mmol/L [facility] HGB (BG) 8.4(L) 13.5 - 17.5 g/dl [facility] IONIZED CALCIUM 0.98(L) 1.14 - 1.30 mmol/L [facility] Glucose, whole bld 168(H) 70 - 110 mg/dL [facility] SO2, unspecified 99.7 94.0 - 99.9 % [facility] Comment: SO2 Reference Range: Arterial: 94.0-99.9 Venous: 60.0-85.0 Blood 02/19/2025 11:2 9 AM EDT 02/19/2025 11:33 AM EDT us Colin METZ LAB BLOOD ORDERABLES Final Res ult Performing Organization Address City/[facility] Co de Phone Number [address] [address] * Lactate (blood gas) (02/19/2025 11:29 AM EDT) Lactate, blood 1.0 0.5 - 2.0 mmol/L [facility] Blood 02/19/2025 11:2 9 AM EDT 02/19/2025 11:33 AM EDT us Colin METZ LAB BLOOD ORDERABLES Final Res ult Performing Organization Address [facility] Co de Phone Number [address] [address] * (ABNORMAL) POCT ACT from cardiac OR (02/19/2025 11:05 AM EDT) ACT FROM CARDIAC OR 488(H) 90 - 130 sec [facility] 02/19/2025 11:0 5 AM EDT 02/19/2025 11:11 AM EDT us Natalie Acosta MD POINT OF CARE TEST ORDERA BLES Final Result Performing Organization Address [facility] Co de Phone Number [address] [address] * POCT Heparin Protamine Titration (02/19/2025 11:03 AM EDT) Heparin Protamine Titration 2.7 u/ml [facility] Misc Test Ref Range 0.0-3.4 u/ml [facility] Comment (Coag) [place] [facility] 02/19/2025 11:0 3 AM EDT 02/19/2025 11:02 AM EDT us Natalie Acosta MD POINT OF CARE TEST ORDERA BLES Final Result Performing Organization Address City/[facility]/ZIP Co de Phone Number [address] [address] * (ABNORMAL) PUMP BLOOD GAS PLUS (02/19/2025 11:02 AM EDT) FIO2/FLOW CPB FIO2/L min [facility] TEMP. 37.0 deg C [facility] PH(UNCORRECTED) 7.36 [facility] PH 7.36 7.32 - 7.45 [facility] PCO2(UNCORRECTE D) 40 mm[Hg] [facility] PCO2 40 35 - 50 mm[Hg] [facility] PO2(UNCORRECTED ) 235 mm[Hg] [facility] PO2 235(H) 40 - 90 mm[Hg] [facility] Base Excess, unspecified NEG 0.0 - 3.0 mmol/L [facility] Comment:3.1NEG HCO3, unspecified 22(L) 24 - 30 mmol/L [facility] SODIUM 134(L) 135 - 145 mmol/L [facility] POTASSIUM 4.9 3.5 - 5.0 mmol/L [facility] HGB (BG) 7.8(L) 13.5 - 17.5 g/dl [facility] IONIZED CALCIUM 0.99(L) 1.14 - 1.30 mmol/L [facility] Glucose, whole bld 193(H) 70 - 110 mg/dL [facility] SO2, unspecified 99.7 94.0 - 99.9 % [facility] Comment: SO2 Reference Range: Arterial: 94.0-99.9 Venous: 60.0-85.0 Blood 02/19/2025 11:0 2 AM EDT 02/19/2025 11:06 AM EDT Colin SY LAB BLOOD ORDERABLES Final Res ult Performing Organization Address City/[facility]/ZIP Co de Phone Number [facility] [address] [place] [address] * Lactate (blood gas) (02/19/2025 11:02 AM EDT) Lactate, blood 1.1 0.5 - 2.0 mmol/L [facility] Blood 02/19/2025 11:0 2 AM EDT 02/19/2025 11:06 AM EDT Colin Layne [facility] BLOOD ORDERABLES Final Res ult Performing Organization Address City/[facility]/ZIP Co de Phone Number [address] [address] * (ABNORMAL) POCT ACT from cardiac OR (02/19/2025 10:36 AM EDT) ACT FROM CARDIAC OR 446(H) 90 - 130 sec [facility] 02/19/2025 10:3 6 AM EDT 02/19/2025 10:40 AM EDT us Natalie Acosta MD POINT OF CARE TEST ORDERA BLES Final Result Performing Organization Address City/[facility] Co de Phone Number [address] [address] * POCT Heparin Protamine Titration (02/19/2025 10:36 AM EDT) Heparin Protamine Titration 2.0 u/ml [facility] Misc Test Ref Range 2.0-4.1 u/ml [facility] Comment (Coag) [place] [facility] 02/19/2025 10:3 6 AM EDT 02/19/2025 10:40 AM EDT us Natalie Acosta MD POINT OF CARE TEST ORDERA BLES Final Result [address] [address] * RBCs (02/19/2025 10:29 AM EDT) Colin METZ NURSING TREATMENT ORDERABLES - ASSIGN Final Result * (ABNORMAL) PUMP BLOOD GAS PLUS (02/19/2025 10:29 AM EDT) FIO2/FLOW CPB FIO2/L min [facility] TEMP. 37.0 deg C [facility] PH(UNCORRECTED) 7.34 [facility] PH 7.34 7.32 - 7.45 [facility] PCO2(UNCORRECTE D) 41 mm[Hg] [facility] PCO2 41 35 - 50 mm[Hg] [facility] PO2(UNCORRECTED ) 259 mm[Hg] [facility] PO2 259(H) 40 - 90 mm[Hg] [facility] Base Excess, unspecified NEG 0.0 - 3.0 mmol/L [facility] Comment:4.1NEG HCO3, unspecified 21(L) 24 - 30 mmol/L [facility] SODIUM 134(L) 135 - 145 mmol/L [facility] POTASSIUM 4.8 3.5 - 5.0 mmol/L [facility] HGB (BG) 8.3(L) 13.5 - 17.5 g/dl [facility] IONIZED CALCIUM 0.99(L) 1.14 - 1.30 mmol/L [facility] Glucose, whole bld 219(H) 70 - 110 mg/dL [facility] SO2, unspecified 99.7 94.0 - 99.9 % [facility] Comment: SO2 Reference Range: Arterial: 94.0-99.9 Venous: 60.0-85.0 Blood 02/19/2025 10:2 9 AM EDT 02/19/2025 10:34 AM EDT Colin Layne [facility] BLOOD ORDERABLES Final Res ult Performing Organization Address City/[facility]/ZIP Co de Phone Number [address] [address] * Lactate (blood gas) (02/19/2025 10:29 AM EDT) Lactate, blood 1.4 0.5 - 2.0 mmol/L [facility] Blood 02/19/2025 10:2 9 AM EDT 02/19/2025 10:34 AM EDT Colin Layne [facility] LAB BLOOD ORDERABLES Final Res ult Performing Organization Address City/[facility]/ZIP Co de Phone Number [address] [address] * Anatomic Pathology (02/19/2025 10:09 AM EDT) 02/19/2025 10:0 9 AM EDT 02/19/2025 2:15 PM EDT Narrative SEE NARRATIVE - 02/25/2025 11:18 AM EDT [address] [address] Surgical Pathology Report Patient Name: JOSE WINSLOW : 1975 (Age: 50) Sex: M Location: [facility] Institution: [facility] [place] Date of Operation: 02/19/2025 Date of Reported: 02/25/2025 11:18 Results To: Natalie Acosta MD, MPH FINAL PATHOLOGIC DIAGNOSIS: A. P2 CHORD AND LEAFLET: Myxomatous degeneration. Electronically Signed Out By Dominic Hurtado MD, PHD CLINICAL HISTORY Mitral valve prolapse SPECIMENS SUBMITTED: A: P2 CHORD AND LEAFLET GROSS DESCRIPTION Received fresh labeled Jose Winslow , and P2 chord and leaflet is a 2.8 x 1.7 x 0.5 cm aggregate of white rubbery tissue fragments admixed with fragments of chordae tendonae, ranging from 0.1-0.2 cm in thickness. No calcifications or vegetations are identified. Paralegal Assistant sections are wrapped and are submitted in A1. Grossed by: Angela Spangler us Natalie Acosta MD PATHOLOGY ORDERABLES Jeanine l Result SEE NARRATIVE * (ABNORMAL) POCT ACT from cardiac OR (02/19/2025 10:02 AM EDT) ACT FROM CARDIAC OR 404(H) 90 - 130 sec [facility] 02/19/2025 10:0 2 AM EDT 02/19/2025 10:05 AM EDT us Natalie Acosta MD POINT OF CARE TEST ORDERA BLES Final Result [facility] [address] [place] [address] * POCT Heparin Protamine Titration (02/19/2025 10:02 AM EDT) Heparin Protamine Titration 2.7 u/ml [facility] Misc Test Ref Range 2.0-4.1 u/ml [facility] Comment (Coag) [place] [facility] 02/19/2025 10:0 2 AM EDT 02/19/2025 10:05 AM EDT us Natalie Acosta MD POINT OF CARE TEST ORDERA BLES Final Result Performing Organization Address City/[facility]/ZIP Co de Phone Number [address] [address] * (ABNORMAL) PUMP BLOOD GAS PLUS (02/19/2025 9:56 AM EDT) FIO2/FLOW CPB FIO2/L min [facility] TEMP. 37.0 deg C [facility] PH(UNCORRECTED) 7.40 [facility] PH 7.40 7.32 - 7.45 [facility] PCO2(UNCORRECTE D) 40 mm[Hg] [facility] PCO2 40 35 - 50 mm[Hg] [facility] PO2(UNCORRECTED ) 260 mm[Hg] [facility] PO2 260(H) 40 - 90 mm[Hg] [facility] Base Excess, unspecified NEG 0.0 - 3.0 mmol/L [facility] Comment:0.7NEG HCO3, unspecified 24 24 - 30 mmol/L [facility] SODIUM 137 135 - 145 mmol/L [facility] POTASSIUM 3.8 3.5 - 5.0 mmol/L [facility] HGB (BG) 7.9(L) 13.5 - 17.5 g/dl [facility] IONIZED CALCIUM 1.00(L) 1.14 - 1.30 mmol/L [facility] Glucose, whole bld 201(H) 70 - 110 mg/dL [facility] SO2, unspecified 99.7 94.0 - 99.9 % [facility] Comment: SO2 Reference Range: Arterial: 94.0-99.9 Venous: 60.0-85.0 Blood 02/19/2025 9:56 AM EDT 02/19/2025 10:05 AM EDT us Colin METZ LAB BLOOD ORDERABLES Final Res ult Performing Organization Address City/[facility]/ZIP Co de Phone Number [address] [address] * Lactate (blood gas) (02/19/2025 9:56 AM EDT) Lactate, blood 0.7 0.5 - 2.0 mmol/L [facility] Blood 02/19/2025 9:56 AM EDT 02/19/2025 10:05 AM EDT us Colin METZ LAB BLOOD ORDERABLES Final Res ult Performing Organization Address [facility]/ZIP Co de Phone Number [address] [address] * (ABNORMAL) POCT ACT from cardiac OR (02/19/2025 9:32 AM EDT) ACT FROM CARDIAC OR 441(H) 90 - 130 sec [facility] 02/19/2025 9:32 AM EDT 02/19/2025 9:37 AM EDT us Natalie Acosta MD POINT OF CARE TEST ORDERA BLES Final Result Performing Organization Address [facility] Co de Phone Number [address] [address] * POCT Heparin Protamine Titration (02/19/2025 9:32 AM EDT) Heparin Protamine Titration 2.7 u/ml [facility] Misc Test Ref Range 2.0-4.1 u/ml [facility] Comment (Coag) [place] [facility] 02/19/2025 9:32 AM EDT 02/19/2025 9:37 AM EDT us Natalie Acosta MD POINT OF CARE TEST ORDERA BLES Final Result Performing Organization Address City/[facility] Co de Phone Number [address] [address] * (ABNORMAL) PUMP BLOOD GAS PLUS (02/19/2025 9:27 AM EDT) FIO2/FLOW CPB FIO2/L min [facility] TEMP. 37.0 deg C [facility] PH(UNCORRECTED) 7.38 [facility] PH 7.38 7.32 - 7.45 [facility] PCO2(UNCORRECTE D) 41 mm[Hg] [facility] PCO2 41 35 - 50 mm[Hg] [facility] PO2(UNCORRECTED ) 269 mm[Hg] [facility] PO2 269(H) 40 - 90 mm[Hg] [facility] Base Excess, unspecified NEG 0.0 - 3.0 mmol/L [facility] Comment:1.4NEG HCO3, unspecified 24 24 - 30 mmol/L [facility] SODIUM 136 135 - 145 mmol/L [facility] POTASSIUM 3.7 3.5 - 5.0 mmol/L [facility] HGB (BG) 7.8(L) 13.5 - 17.5 g/dl [facility] IONIZED CALCIUM 1.00(L) 1.14 - 1.30 mmol/L [facility] Glucose, whole bld 144(H) 70 - 110 mg/dL [facility] SO2, unspecified 99.9 94.0 - 99.9 % [facility] Comment: SO2 Reference Range: Arterial: 94.0-99.9 Venous: 60.0-85.0 Blood 02/19/2025 9:27 AM EDT 02/19/2025 9:35 AM EDT Colin METZ LAB BLOOD ORDERABLES Final Res ult Performing Organization Address City/[facility] Co de Phone Number [address] [address] * Lactate (blood gas) (02/19/2025 9:27 AM EDT) Lactate, blood 0.7 0.5 - 2.0 mmol/L [facility] Blood 02/19/2025 9:27 AM EDT 02/19/2025 9:35 AM EDT Colin METZ LAB BLOOD ORDERABLES Final Res ult Performing Organization Address City/[facility]/ZIP Co de Phone Number [address] [address] * (ABNORMAL) POCT ACT from cardiac OR (02/19/2025 9:02 AM EDT) ACT FROM CARDIAC OR 433(H) 90 - 130 sec [facility] 02/19/2025 9:02 AM EDT 02/19/2025 9:06 AM EDT Natalie Acosta MD POINT OF CARE TEST ORDERA BLES Final Result [address] [address] * POCT Heparin Protamine Titration (02/19/2025 9:02 AM EDT) Heparin Protamine Titration 2.7 u/ml [facility] Misc Test Ref Range 2.0-4.1 u/ml [facility] Comment (Coag) [place] [facility] 02/19/2025 9:02 AM EDT 02/19/2025 9:06 AM EDT Natalie Acosta MD POINT OF CARE TEST ORDERA BLES Final Result Performing Organization Address City/[facility]/ZIP Co de Phone Number [address] [address] * (ABNORMAL) PUMP BLOOD GAS PLUS (02/19/2025 8:55 AM EDT) FIO2/FLOW CPB FIO2/L min [facility] TEMP. 37.0 deg C [facility] PH(UNCORRECTED) 7.36 [facility] PH 7.36 7.32 - 7.45 [facility] PCO2(UNCORRECTE D) 45 mm[Hg] [facility] PCO2 45 35 - 50 mm[Hg] [facility] PO2(UNCORRECTED ) 392 mm[Hg] [facility] PO2 392(H) 40 - 90 mm[Hg] [facility] Base Excess, unspecified NEG 0.0 - 3.0 mmol/L [facility] Comment:0.8NEG HCO3, unspecified 25 24 - 30 mmol/L [facility] SODIUM 136 135 - 145 mmol/L [facility] POTASSIUM 4.1 3.5 - 5.0 mmol/L [facility] HGB (BG) 7.2(L) 13.5 - 17.5 g/dl [facility] IONIZED CALCIUM 0.95(L) 1.14 - 1.30 mmol/L [facility] Glucose, whole bld 132(H) 70 - 110 mg/dL [facility] SO2, unspecified 99.7 94.0 - 99.9 % [facility] Comment: SO2 Reference Range: Arterial: 94.0-99.9 Venous: 60.0-85.0 Blood 02/19/2025 8:55 AM EDT 02/19/2025 9:02 AM EDT Colin METZ LAB BLOOD ORDERABLES Final Res ult Performing Organization Address [facility] Co de Phone Number [address] [address] * (ABNORMAL) VENOUS BLOOD GAS PLUS (02/19/2025 8:55 AM EDT) FIO2 CPB FIO2/L min [facility] PH 7.34 7.30 - 7.40 [facility] PCO2 50 38 - 50 mm[Hg] [facility] PO2 51(H) 35 - 50 mm[Hg] [facility] Base Excess, unspecified 0.1 0.0 - 3.0 mmol/L [facility] HCO3, unspecified 26 24 - 30 mmol/L [facility] SODIUM 136 135 - 145 mmol/L [facility] POTASSIUM 4.1 3.5 - 5.0 mmol/L [facility] IONIZED CALCIUM 0.88(L) 1.14 - 1.30 mmol/L [facility] Glucose, whole bld 137(H) 70 - 110 mg/dL [facility] HGB (BG) 7.3(L) 13.5 - 17.5 g/dl [facility] SO2-VENOUS (SO2, venous) 78.8 60.0 - 85.0 % [facility] Blood 02/19/2025 8:55 AM EDT 02/19/2025 9:01 AM EDT Colin METZ LAB BLOOD ORDERABLES Final Res ult Performing Organization Address [facility] Co de Phone Number [address] [address] * Lactate (blood gas) (02/19/2025 8:55 AM EDT) Lactate, blood 0.7 0.5 - 2.0 mmol/L [facility] Blood 02/19/2025 8:55 AM EDT 02/19/2025 9:01 AM EDT us Colin METZ LAB BLOOD ORDERABLES Final Res ult [address] [address] * (ABNORMAL) POCT ACT from cardiac OR (02/19/2025 8:44 AM EDT) ACT FROM CARDIAC OR 400(H) 90 - 130 sec [facility] 02/19/2025 8:44 AM EDT 02/19/2025 8:48 AM EDT us Natalie Acosta MD POINT OF CARE TEST ORDERA BLES Final Result Performing Organization Address City/[facility]/ZIP Co de Phone Number [address] [address] * POCT Heparin Protamine Titration (02/19/2025 8:44 AM EDT) Heparin Protamine Titration 3.4 u/ml [facility] Misc Test Ref Range 2.0-4.1 u/ml [facility] Comment (Coag) Andreas [facility] 02/19/2025 8:44 AM EDT 02/19/2025 8:48 AM EDT us Natalie Acosta MD POINT OF CARE TEST ORDERA BLES Final Result [address] [address] * POCT heparin dose response (02/19/2025 7:45 AM EDT) ACT FROM CARDIAC OR 127 90 - 130 sec [facility] Projected heparin concentration 3.0 u/ml [facility] Heparin dose response 109 50 - 120 sec [facility] 02/19/2025 7:45 AM EDT 02/19/2025 7:51 AM EDT Natalie Acosta MD POINT OF CARE TEST ORDERA BLES Final Result Performing Organization Address [facility] [facility] de Phone Number [address] [address] * Basic metabolic panel (02/19/2025 7:45 AM EDT) SODIUM 139 135 - 145 mmol/L [facility] POTASSIUM 4.0 3.4 - 5.0 mmol/L [facility] CHLORIDE 106 98 - 108 mmol/L [facility] CO2 23 23 - 32 mmol/L [facility] BUN 14 8 - 25 mg/dL [facility] CREATININE 0.93 0.60 - 1.30 mg/dL [facility] GLUCOSE 109 70 - 110 mg/dL [facility] CALCIUM 8.8 8.5 - 10.5 mg/dL [facility] EGFR 99 >59 mL/min/1.7 3m2 [facility] Comment:Estimated glomerular filtration rate calculated using the CKD-EPI refit equation. ANION GAP 10 3 - 17 mmol/L [facility] Blood 02/19/2025 7:45 AM EDT 02/19/2025 7:49 AM EDT us Natalie Acosta MD LAB BLOOD ORDERABLES Jeanine l Result Performing Organization Address City/[facility] Co de Phone Number [address] [phone] * Lactate (blood gas) (02/19/2025 7:45 AM EDT) Lactate, blood 0.9 0.5 - 2.0 mmol/L [facility] Blood 02/19/2025 7:45 AM EDT 02/19/2025 7:49 AM EDT Natalie Acosta MD LAB BLOOD ORDERABLES Jeanine l Result Performing Organization Address [facility] Co de Phone Number [address] [phone] * (ABNORMAL) Arterial blood gas PLUS (02/19/2025 7:45 AM EDT) FIO2 UNSPEC. FIO2/L min [facility] PH 7.43 7.35 - 7.45 [facility] PCO2 36 35 - 42 mm[Hg] [facility] PO2 286(H) 80 - 100 mm[Hg] [facility] Base Excess, unspecified NEG 0.0 - 3.0 mmol/L [facility] Comment:0.6NEG HCO3, unspecified 24 24 - 30 mmol/L [facility] SODIUM 137 135 - 145 mmol/L [facility] POTASSIUM 3.9 3.5 - 5.0 mmol/L [facility] IONIZED CALCIUM 1.14 1.14 - 1.30 mmol/L [facility] Glucose, whole bld 102 70 - 110 mg/dL [facility] HGB (BG) 9.1(L) 13.5 - 17.5 g/dl [facility] O2 Sat (SO2, arterial) 99.7(H) 94.0 - 99.0 % [facility] Blood 02/19/2025 7:45 AM EDT 02/19/2025 7:49 AM EDT Natalie Acosta MD LAB BLOOD ORDERABLES Jeanine l Result Performing Organization Address [facility] Co de Phone Number [address] [phone] documented in this encounter Visit Diagnoses Diagnosis Mitral valve insufficiency, unspecified etiology- Primary Mitral valve insufficiency, unspecified etiology documented in this encounter Admitting Diagnoses Diagnosis Mitral valve insufficiency, unspecified etiology documented in this encounter Administered Medications Inactive Administered Medications - up to 3 most recent administrations Medication Order MAR Action Action Date Dose Rate Site acetaminophen (OFIRMEV) injection 1,000 mg 1,000 mg, Intravenous, Administer over 15 Minutes, at 400 mL/hr, Once, On Tue02/19/25 at 1545, For 1 dose, Do NOT Refrigerate, Please confirm all criteria for IV acetaminophen use are met. What is the indication for using IV APAP? Pain (only permitted if unable to take enteral) New Bag 02/19/2025 3:25 PM EDT 1,000 mg 400 mL/hr acetaminophen (TYLENOL) tablet 975 mg 975 mg, Oral, Every 8 hours, First dose on Tue02/19/25 at 2345 Given 02/21/2025 8:45 AM EDT 975 mg Given 02/21/2025 12:11 AM EDT 975 mg Given 02/20/2025 3:36 PM EDT 975 mg acetaminophen (TYLENOL) tablet 975 mg 975 mg, Oral, 3 times daily, First dose (after last modification) on [facility] 02/21/25 at 1400 Given 02/26/2025 9:33 AM EDT 975 mg Given 02/25/2025 9:22 PM EDT 975 mg Given 02/25/2025 1:36 PM EDT 975 mg aminocaproic acid (AMICAR) infusion premix CMPD 1.25 g/hr (20.8333 mL/hr, rounded to 20.8 mL/hr), Intravenous, Continuous, Starting on Tue02/19/25 at 1530, For 5 hours, Continue bag from OR, Until Tue02/19/25 at 2028 Rate/Dose Verify 02/19/2025 6:00 PM EDT 1.25 g/hr 20.8 mL/hr Rate/Dose Verify 02/19/2025 5:00 PM EDT 1.25 g/hr 20.8 mL /hr Rate/Dose Verify 02/19/2025 4:00 PM EDT 1.25 g/hr 20.8 mL /hr amiodarone (PACERONE) tablet 200 mg 200 mg, Oral, 3 times daily, First dose on Tue02/25/25 at 0900 Given 02/25/2025 8:56 AM EDT 200 mg amiodarone (PACERONE) tablet 200 mg 200 mg, Oral, 2 times daily, First dose (after last modification) on Tue02/25/25 at 2100, Do not administer without reviewing AM EKG. Hold if QTc >500ms and discuss with RC. Given 02/26/2025 9:33 AM EDT 200 mg Given 02/25/2025 9:23 PM EDT 200 mg amiodarone 1.5 mg/mL bolus premix 150 mg 150 mg, Intravenous, Administer over 10 Minutes, at 600 mL/hr, Once, On Tue02/23/25 at 0915, For 1 dose New Bag 02/23/2025 8:54 AM EDT 150 mg 600 mL/hr apixaban (ELIQUIS) tablet 5 mg 5 mg, Oral, 2 times daily, First dose on Tue02/25/25 at 0930, Take with or without food Given 02/26/2025 9:34 AM EDT 5 mg Given 02/25/2025 9:24 PM EDT 5 mg Given 02/25/2025 9:01 AM EDT 5 mg aspirin EC tablet 81 mg 81 mg, Oral, Daily, First dose on Tue02/25/25 at 0930, Administer with water, food, or milk to decrease GI upset. Given 02/25/2025 9:01 AM EDT 81 mg aspirin tablet 325 mg 325 mg, Oral, Daily, First dose on Tue02/20/25 at 0900 Given 02/24/2025 8:57 AM EDT 325 mg Given 02/23/2025 8:44 AM EDT 325 mg Given 02/22/2025 8:10 AM EDT 325 mg aspirin tablet 325 mg 325 mg, Oral, Daily, First dose on Tue02/26/25 at 0900 Given 02/26/2025 9:34 AM EDT 325 mg baclofen (LIORESAL) tablet 5 mg 5 mg, Oral, 3 times daily PRN, spasm, Starting on Tue02/22/25 at 1330, Administer with food or milk. Given 02/23/2025 8:03 PM EDT 5 mg Given 02/23/2025 10:24 AM EDT 5 mg Given 02/22/2025 8:28 PM EDT 5 mg bisacodyl (DULCOLAX) EC tablet 5 mg 5 mg, Oral, Daily, First dose on Tue02/25/25 at 0945, For 1 dose, Do NOT crush or chew. Given 02/25/2025 9:01 AM EDT 5 mg calcium chloride IV syringe 1 g 1 g, Intravenous, Every 1 hour PRN, other (free text field), for ical <1.1, Starting on Tue02/19/25 at 1437, Do not use scalp vein, small hand or foot veins for I.V. administration; central-line administration is the preferred route. Stop the infusion if the patient complains of pain or discomfort. Given 02/19/2025 3:53 PM EDT 1 g calcium gluconate 2 gram/100 mL in NaCl IVPB premix 2 g, Intravenous, Administer over 30 Minutes, at 200 mL/hr, Once, On Tue02/20/25 at 0300, For 1 dose New Bag 02/20/2025 2:58 AM EDT 2 g 200 mL/hr chlorhexidine gluconate 2 % wipe 1 each 1 each (1 Application), Topical, Daily, First dose on Tue02/19/25 at 1530, Apply to body. Use each wipe only once. Do not use wipes on face or any mucous membranes. Cleanse tubes and lines, avoid dressings. For TOPICAL Use Only Given 02/20/2025 9:44 PM EDT 1 each Given 02/19/2025 3:25 PM EDT 1 each cyanocobalamin (vitamin B-12) tablet 125 mcg 125 mcg, Oral, Daily, First dose on Tue02/20/25 at 0900 Given 02/26/2025 9:32 AM EDT 125 mcg Given 02/25/2025 8:57 AM EDT 125 mcg Given 02/24/2025 8:57 AM EDT 125 mcg dextrose (D50W) 50 % syringe 25 g 25 g, Intravenous, Once, On Tue02/20/25 at 0300, For 1 dose, Check POCT glucose before giving Dextrose. Give insulin only after dextrose. For hyperkalemia use. Given 02/20/2025 2:58 AM EDT 25 g dextrose (D50W) 50 % syringe 25 g 25 g, Intravenous, Once as needed, low blood sugar (provide value), glucose <50 mg/dL, Starting on Tue02/20/25 at 0300, For 1 dose, For hyperkalemia use. Do not give orange juice for correction of hypoglycemia. If unable to take PO and: Blood glucose less than 50 mg/dL or impaired consciousness, give 25 g (full amp). Blood glucose 50-69 mg/dL, give 12.5 g (half amp) call RC. Recheck blood glucose in 15 minutes and repeat prn. DOBUTamine (DOBUTREX) infusion premix 1 mcg/kg/min 76.6 kg (2.298 mL/hr, rounded to 2.3 mL/hr), Intravenous, Continuous, Starting on Tue02/19/25 at 1545, Is the RN allowed to titrate this medication with the following parameters listed below? No, For a non-titratable order, acknowledge you have entered a discrete dose in the dose field above: Acknowledge, On hold since Tue02/22/2025 at 0602 until manually unheld Rate/Dose Verify 02/22/2025 6:00 AM EDT 1 mcg/kg/min 2.3 mL/hr Rate/Dose Verify 02/22/2025 5:00 AM EDT 1 mcg/kg/min 2.3 m L/hr Rate/Dose Verify 02/22/2025 4:00 AM EDT 1 mcg/kg/min 2.3 m L/hr docusate sodium (COLACE) capsule 100 mg 100 mg, Oral, 2 times daily, First dose on Tue02/25/25 at 0145 Given 02/26/2025 9:33 AM EDT 100 mg Given 02/25/2025 9:24 PM EDT 100 mg Given 02/25/2025 8:56 AM EDT 100 mg enoxaparin (LOVENOX) subcutaneous syringe 40 mg 40 mg, Subcutaneous, Every 24 hours, First dose on Tue02/20/25 at 1800, Administer subcutaneously. Rotate injection sites. Given 02/21/2025 5:25 PM EDT 40 mg Right Arm Given 02/20/2025 5:11 PM EDT 40 mg Ri ght Arm fentaNYL (PF) (SUBLIMAZE) injection 25-50 mcg 25-50 mcg, Intravenous, Every 1 hour PRN, other (free text field), pain/sedation while intubated. Hold if extubated, Starting on Tue02/19/25 at 1437 Given 02/19/2025 4:20 PM EDT 25 mcg folic acid (FOLVITE) tablet 1,000 mcg 1,000 mcg, Oral, Every morning, First dose on Tue02/20/25 at 0900 Given 02/26/2025 9:33 AM EDT 1,000 mcg Given 02/25/2025 8:56 AM EDT 1,000 mcg Given 02/24/2025 8:57 AM EDT 1,000 mcg furosemide (LASIX) infusion 0-20 mg/hr (0-10 mL/hr), Intravenous, Continuous, Starting on Tue02/20/25 at 1815, PROTECT FROM LIGHT, Is the RN allowed to titrate this medication with the following parameters listed below? Yes, Titration parameter(s): Urine Output (mL/hr), Titrate to this value based on the above chosen parameter(s) (Enter a number): >150 hr, Start infusion at this rate: 5 mg/hr, May titrate dose at increments of ___ every 1 hour to achieve defined parameter above: 2.5 mg/hr Rate/Dose Change 02/22/2025 7:20 AM EDT 10 mg/hr 5 mL/hr Rate/Dose Verify 02/22/2025 7:00 AM EDT 5 mg/hr 2.5 mL/ hr Rate/Dose Verify 02/22/2025 6:00 AM EDT 5 mg/hr 2.5 mL/ hr furosemide (LASIX) injection 20 mg 20 mg, Intravenous, Once, On Tue02/20/25 at 0530, For 1 dose Given 02/20/2025 4:45 AM EDT 20 mg furosemide (LASIX) injection 20 mg 20 mg, Intravenous, Once, On Tue02/20/25 at 0600, For 1 dose Given 02/20/2025 5:54 AM EDT 20 mg furosemide (LASIX) injection 20 mg 20 mg, Intravenous, 2 times daily, First dose on Tue02/20/25 at 1000 Given 02/20/2025 3:36 PM EDT 20 mg Given 02/20/2025 10:18 AM EDT 20 mg furosemide (LASIX) injection 40 mg 40 mg, Intravenous, Once, On Tue02/20/25 at 1745, For 1 dose Given 02/20/2025 5:20 PM EDT 40 mg furosemide (LASIX) injection 60 mg 60 mg, Intravenous, Once, On Tue02/22/25 at 1100, For 1 dose Given 02/22/2025 11:06 AM EDT 60 mg furosemide (LASIX) tablet 20 mg 20 mg, Oral, 2 times daily, First dose on Tue02/23/25 at 0900 Given 02/23/2025 3:29 PM EDT 20 mg Given 02/23/2025 8:43 AM EDT 20 mg furosemide (LASIX) tablet 40 mg 40 mg, Oral, 2 times daily, First dose (after last modification) on Tue02/24/25 at 0900 Given 02/24/2025 3:31 PM EDT 40 mg Given 02/24/2025 8:57 AM EDT 40 mg HYDROmorphone (PF) (DILAUDID) 1 mg/mL in NS 50 mL PATTERN [employer] bag premix 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 Do not give until extubated. Hold if somnolent, if RR<10, Starting on Tue02/19/25 at 1437, For 10 doses Given 02/19/2025 10:01 PM EDT 0.5 mg Given 02/19/2025 7:55 PM EDT 0.5 mg Given 02/19/2025 6:35 PM EDT 0.5 mg insulin regular (HumuLIN-R,NovoLIN-R) injection 10 Units 10 Units, Intravenous, Once, On Tue02/20/25 at 0300, For 1 dose, IV Administration for Hyperkalemia: Use IV-Insulin Syringe (Needleless), Insulin type: Other, Additional Comments: hyperkalemia Given 02/20/2025 3:01 AM EDT 10 Units insulin regular (MYXREDLIN) 1 unit/mL in NS 100 mL infusion 0-30 Units/hr (0-30 mL/hr), Intravenous, Continuous, Starting on Tue02/19/25 at 1530, - Start once blood glucose > 150 - If blood glucose < 70, hold and treat with D50W per PRN hypoglycemia orders - If infusion rate < 0.5 mL/hr, hold infusion and call - For glucose greater than 600 mg/dL, the calculator will use 600 mg/dL for all calculations - If insulin infusion rate is < 0.5 ml/hr for multiple hourly checks, consider switching to SQ correctional insulin. Our pumps cannot run below 0.3 ml/hr. , Initial Order ISC: 0.01, Glucose Target: 110-150, Low Target: 110, High Target: 150 Infusion from Other MGB Entity 02/19/2025 2:25 PM EDT 2 Units/hr 2 mL/hr lactated ringers IV Bolus 500 mL 500 mL, Intravenous, Administer over 30 Minutes, As needed, other (free text field), up to 3L, Starting on Tue02/19/25 at 1437 New Bag 02/20/2025 2:12 AM EDT 500 mL 1000 mL/hr New Bag 02/19/2025 9:47 PM EDT 500 mL 1000 mL/hr New Bag 02/19/2025 4:00 PM EDT 500 mL 1000 mL/hr lidocaine 4 % 2 patch 2 patch, Transdermal, Administer over 12 Hours, Every 24 hours, First dose on Tue02/19/25 at 1530, Apply to chest Do not place external heat sources such as heating pads over patches. Patch Applied 02/25/2025 9:21 PM EDT 2 patches Chest Patch Applied 02/23/2025 10:25 AM EDT 2 patches Right Shoulder Patch Applied 02/22/2025 8:10 AM EDT 2 patches Chest magnesium sulfate 2 gram/50 mL (4%) in Sterile Water IVPB premix 2 g 2 g, Intravenous, Administer over 30 Minutes, at 100 mL/hr, As needed, other (free text field), Mg Replacement Scale, Starting on Tue02/19/25 at 1437, Magnesium Replacement Scale (IV) <1.4 Give 4 g and call RC if <1 1.4-1.8 4 g 1.9-2.3 2 g 2.4 or greater Do not replace Hold scale if creatinine greater than 2 mg/dL or rise of greater than 0.5 in 24 hrs, and contact RC. New Bag 02/22/2025 3:30 AM EDT 2 g 100 mL/hr New Bag 02/21/2025 12:42 PM EDT 2 g 100 mL/hr New Bag 02/21/2025 3:03 AM EDT 2 g 100 mL/hr magnesium sulfate 2 gram/50 mL (4%) in Sterile Water IVPB premix 2 g 2 g, Intravenous, Administer over 30 Minutes, at 100 mL/hr, As needed, other (free text field), Mg Replacement Scale, Starting on 02/23/25 at 0721, Magnesium Replacement Scale (IV) Option 2: Magnesium level to be checked and repleted daily. <1.4 Give 4 g and call RC if <1 1.4-1.6 4 g 1.7-2 2 g >2 Do not replace Hold scale if creatinine greater than 2 mg/dL or rise of greater than 0.5 in 24 hrs, and contact RC. New Bag 02/25/2025 6:37 AM EDT 2 g 100 mL/hr magnesium sulfate in water 4 gram/100 mL (4 %) IVPB premix 4 g, Intravenous, Administer over 60 Minutes, at 100 mL/hr, As needed, other (free text field), Mg Replacement Scale (scale defined in 2 gram linked order), Starting on 02/23/25 at 0721, See 2 gram linked order for magnesium replacement scale melatonin tablet 5 mg 5 mg, Oral, Nightly, First dose on Tue02/19/25 at 2100 Given 02/25/2025 9:24 PM EDT 5 mg Given 02/24/2025 8:33 PM EDT 5 mg Given 02/23/2025 8:03 PM EDT 5 mg methocarbamoL (ROBAXIN) tablet 750 mg 750 mg, Oral, 4 times daily, First dose on Tue02/19/25 at 2345 Given 02/19/2025 11:22 PM EDT 750 mg methocarbamoL (ROBAXIN) tablet 750 mg 750 mg, Oral, 4 times daily, First dose (after last modification) on Tue02/20/25 at 0900, For 48 hours Given 02/21/2025 10:02 PM EDT 750 mg Given 02/21/2025 5:25 PM EDT 750 mg Given 02/21/2025 1:22 PM EDT 750 mg metoprolol succinate (TOPROL-XL) ER tablet 25 mg 25 mg, Oral, 2 times daily, First dose (after last modification) on 02/24/25 at 1800, Do NOT crush or chew., Hold Parameters: Systolic BP LESS than 100 mmHg, Hold Parameters: Heart Rate LESS than 60 bpm Given 02/26/2025 9:33 AM EDT 25 mg Given 02/25/2025 9:24 PM EDT 25 mg Given 02/25/2025 8:56 AM EDT 25 mg metoprolol tartrate (LOPRESSOR) IMMEDIATE release tablet 6.25 mg 6.25 mg, Oral, Every 6 hours scheduled, First dose on 02/23/25 at 0600, Hold Parameters: Other Systolic BP, Other Systolic BP LESS than (mmHg): 110, Hold Parameters: Heart Rate LESS than 60 bpm Given 02/23/2025 6:38 AM EDT 6.25 mg metoprolol tartrate (LOPRESSOR) IMMEDIATE release tablet 6.25 mg 6.25 mg, Oral, Once, On 02/23/25 at 0830, For 1 dose, Hold Parameters: Systolic BP LESS than 100 mmHg, Hold Parameters: Heart Rate LESS than 60 bpm Given 02/23/2025 7:46 AM EDT 6.25 mg metoprolol tartrate (LOPRESSOR) IMMEDIATE release tablet 6.25 mg 6.25 mg, Oral, Every 6 hours scheduled, First dose (after last modification) on 02/24/25 at 0800, Hold Parameters: Other Systolic BP, Other Systolic BP LESS than (mmHg): 110, Hold Parameters: Heart Rate LESS than 60 bpm Given 02/24/2025 11:18 AM EDT 6.25 mg nitroglycerin infusion premix 0-200 mcg/min (0-30 mL/hr), Intravenous, Continuous, Starting on Tue02/20/25 at 0600, Is the RN allowed to titrate this medication with the following parameters listed below? Yes, Titration parameter(s): SBP (mmHg), Titrate to this value based on the above chosen parameter(s) (Enter a number): SBP < 140, Start infusion at this rate: 20 mcg/min, May titrate dose at increments of ___ every 1 minute to achieve defined parameter above: 5-20 mcg/min Rate/Dose Change 02/20/2025 8:34 AM EDT 25 mcg/min 3.8 mL/hr Rate/Dose Change 02/20/2025 8:30 AM EDT 50 mcg/min 7.5 mL/ hr Rate/Dose Verify 02/20/2025 8:00 AM EDT 65 mcg/min 9.8 mL/ hr norepinephrine (LEVOPHED) infusion (Central Line) premix 0-30 mcg/min (0-56.25 mL/hr, rounded to 0-56.3 mL/hr), Intravenous, Continuous, Starting on Tue02/19/25 at 1530, Notify provider if max range needs to be exceeded. For CENTRAL LINE Use Only, Is the RN allowed to titrate this medication with the following parameters listed below? Yes, Titration parameter(s): MAP (mmHg), Titrate to this value based on the above chosen parameter(s) (Enter a number): Goal MAP>65, Start infusion at this rate: Last documented dose, Last documented dose (mcg/min): 0, May titrate dose at increments of ___ every 1 minute to achieve defined parameter above: 0.5-5 mcg/min Rate/Dose Change 02/19/2025 2:26 PM EDT 2 mcg/min 3.8 mL/hr Infusion from Other MGB Entity 02/19/2025 2:25 PM EDT 5 mc g/min 9.4 mL/hr omeprazole (PriLOSEC) capsule 40 mg 40 mg, Oral, Daily, First dose (after last modification) on Tue02/20/25 at 0900, Capsule may be opened and contents added to 1 tablespoon of applesauce (use immediately after adding to applesauce); mixture should not be chewed or warmed. Do NOT crush or chew. Given 02/26/2025 9: 32 AM EDT 40 mg Given 02/25/2025 8:56 AM EDT 40 mg Given 02/24/2025 8:57 AM EDT 40 mg ondansetron (PF) (ZOFRAN) injection 4 mg 4 mg, Intravenous, Every 6 hours PRN, nausea, vomiting, Starting on Tue02/19/25 at 1437, For 2 days, If unable to tolerate PO. Given 02/19/2025 8:44 PM EDT 4 mg oxyCODONE tablet 5-10 mg 5-10 mg, Oral, Every 4 hours PRN, moderate pain or 4-6 (on a general 0-10 scale), other (free text field), hold if somnolent, RR<10, Starting on Tue02/19/25 at 1437 Given 02/26/2025 1:44 AM EDT 10 mg Given 02/25/2025 9:22 PM EDT 10 mg Given 02/25/2025 4:06 PM EDT 10 mg polyethylene glycol packet 17 g, Oral, Daily, First dose on Tue02/20/25 at 0900 Given 02/22/2025 8:08 AM EDT 17 g Given 02/21/2025 8:45 AM EDT 17 g Given 02/20/2025 8:40 AM EDT 17 g polyethylene glycol packet 17 g, Oral, 2 times daily, First dose (after last modification) on Tue02/22/25 at 2100 Given 02/25/2025 8:57 AM EDT 17 g Given 02/24/2025 8:38 PM EDT 17 g Given 02/24/2025 3:31 PM EDT 17 g potassium chloride (KLOR-CON) packet 20-80 mEq 20-80 mEq, Oral, As needed, other (free text field), KCL Replacement Scale, Starting on Tue02/22/25 at 1416, KCL Replacement Scale (Oral) Option 2: Potassium level to be checked and repleted daily. <3.1 80 mEq (Give 40 mEq x 1 & call RC. After 2 hrs, give another 40 mEq) 3.1-3.4 60 mEq (Give 40 mEq x 1. After 2 hrs, give another 20 mEq) 3.5-3.8 40 mEq 3.9-4.1 20 mEq >4.1 Do not replace Hold scale if creatinine greater than 2 mg/dL or rise of greater than 0.5 in 24hrs, and contact RC. Dissolve each 20 mEq in at least 4 ounces of cold water or other beverage. Given 02/24/2025 6:18 AM EDT 20 mEq Given 02/23/2025 6:40 PM EDT 20 mEq Given 02/23/2025 8:42 AM EDT 20 mEq potassium chloride in water (KCL) 20 mEq/50 mL IVPB (Central Line) premix 20 mEq, Intravenous, Administer over 60 Minutes, at 50 mL/hr, Every 1 hour PRN, other (free text field), KCL Replacement Scale, Starting on Tue02/19/25 at 1437, KCL Replacement Scale (IV Central Line) 20 to 40 mEq dose range: <3.1 20 mEq x 2 doses and call RC 3.1-3.4 20 mEq x 2 doses 3.5-3.8 20 mEq x 1 dose >3.8 Do not replace Hold scale if creatinine greater than 2 mg/dL or rise of greater than 0.5 in 24hrs, and contact RC. When allowed by hospital policy for potassium administration. For CENTRAL LINE Use Only New Bag 02/22/2025 9:00 AM EDT 20 mEq 50 mL /hr New Bag 02/22/2025 5:12 AM EDT 20 mEq 50 mL/hr New Bag 02/22/2025 2:23 AM EDT 20 mEq 50 mL/hr potassium chloride SA (KLOR-CON M20) ER tablet 20 mEq 20 mEq, Oral, 2 times daily, First dose on Tue02/23/25 at 0900, Please hold for K greater than 4.5 Swallow tablets whole, do not crush or chew. Capsules may be opened and contents sprinkled on a spoonful of applesauce or pudding and should be swallowed immediately without chewing. Microencapsulated tablets may be dissolved in 6 ounces of water, stir and administer immediately. Given 02/26/2025 9:34 AM EDT 20 mEq Given 02/25/2025 9:24 PM EDT 20 mEq Given 02/24/2025 8:33 PM EDT 20 mEq propofol (DIPRIVAN) infusion 0-50 mcg/kg/min 76.6 kg (0-22.98 mL/hr, rounded to 0-23 mL/hr), Intravenous, Continuous, Starting on Tue02/19/25 at 1530, Is the RN allowed to titrate this medication with the following parameters listed below? Yes, Titrate dose to patient ventilator synchrony and/or chosen parameter(s): RASS -2 to -3, Start infusion at this rate: Last documented dose, Last documented dose (mcg/kg/min): *50 mg, May titrate dose at increments of ___ every 1 minute to achieve defined parameter above: 10 mcg/kg/min Rate/Dose Verify 02/19/2025 4:00 PM EDT 20 mcg/kg/min 9.2 mL/hr Rate/Dose Change 02/19/2025 3:54 PM EDT 20 mcg/kg/min 9.2 mL/hr Rate/Dose Verify 02/19/2025 3:00 PM EDT 50 mcg/kg/min 23 m L/hr senna (SENOKOT) tablet 2 tablet 2 tablet, Oral, 2 times daily, First dose on Tue02/20/25 at 0900 Given 02/22/2025 8:10 AM EDT 2 tablets Given 02/21/2025 8:45 AM EDT 2 tablets Given 02/20/2025 8:39 AM EDT 2 tablets senna (SENOKOT) tablet 3 tablet 3 tablet, Oral, 2 times daily, First dose (after last modification) on Tue02/22/25 at 2100 Given 02/25/2025 9:24 PM EDT 3 tablets Given 02/25/2025 8:56 AM EDT 3 tablets Given 02/24/2025 8:38 PM EDT 3 tablets sennosides 8.8 mg/5 mL syrup 17.6 mg 17.6 mg, Oral, 2 times daily, First dose (after last modification) on Tue02/22/25 at 2100, If unable to tolerate tablet simethicone (MYLICON) chewable tablet 80 mg 80 mg, Oral, Every 6 hours PRN, gas, Starting on Tue02/22/25 at 0150, Chewable Given 02/22/2025 8:51 AM EDT 80 mg Given 02/22/2025 1:53 AM EDT 80 mg sodium chloride 0.9% infusion 0-30 mL/hr, Intravenous, Continuous, Starting on Tue02/19/25 at 1530, For 5 days, Hemodynamic transducer Rate/Dose Verify 02/22/2025 10:00 AM EDT 6 mL/hr 6 mL/hr Rate/Dose Verify 02/22/2025 9:00 AM EDT 6 mL/hr 6 mL/hr Rate/Dose Verify 02/22/2025 8:00 AM EDT 6 mL/hr 6 mL/hr sodium chloride 0.9% infusion 0-150 mL/hr, Intravenous, Continuous, Starting on Tue02/19/25 at 1530, For 5 days, Central Venous Line Carrier Rate/Dose Change 02/22/2025 11:00 AM EDT 5 mL/hr 5 mL/hr Rate/Dose Verify 02/22/2025 10:00 AM EDT 10 mL/hr 10 mL/ hr Rate/Dose Change 02/22/2025 9:00 AM EDT 10 mL/hr 10 mL/h r sodium chloride 0.9% infusion 5-10 mL/hr, Intravenous, Continuous, Starting on Tue02/19/25 at 2345, For 24 hours, For KVO. Rate/Dose Verify 02/21/2025 2:00 AM EDT 10 mL/hr 10 mL/hr Rate/Dose Verify 02/21/2025 1:00 AM EDT 10 mL/hr 10 mL/h r Rate/Dose Verify 02/21/2025 12:00 AM EDT 10 mL/hr 10 mL/ hr sodium zirconium cyclosilicate (LOKELMA) powder 10 g 10 g, Oral, 3 times daily, First dose on Tue02/20/25 at 0300, For 6 doses, Hold dose for potassium level less than 5 mmol/L Given 02/20/2025 5:11 PM EDT 10 g Given 02/20/2025 10:18 AM EDT 10 g Given 02/20/2025 4:16 AM EDT 10 g torsemide (DEMADEX) tablet 20 mg 20 mg, Oral, 2 times daily, First dose on Tue02/25/25 at 0900 Given 02/26/2025 9:33 AM EDT 20 mg Given 02/25/2025 4:06 PM EDT 20 mg Given 02/25/2025 8:56 AM EDT 20 mg traZODone (DESYREL) tablet 50 mg 50 mg, Oral, Nightly, First dose on Tue02/21/25 at 2100 Given 02/23/2025 8:03 PM EDT 50 mg Given 02/22/2025 8:28 PM EDT 50 mg Given 02/21/2025 10:45 PM EDT 50 mg vasopressin (VASOSTRICT) infusion 0-0.04 Units/min (0-12 mL/hr), Intravenous, Continuous, Starting on Tue02/19/25 at 1530, Is the RN allowed to titrate this medication with the following parameters listed below? Yes, Titration parameter(s): MAP (mmHg), Titrate to this value based on the above chosen parameter(s) (Enter a number): >70, Start infusion at this rate: 0.01 Units/min, May titrate dose at increments of __ every 10 minutes to achieve defined parameter above: 0.005-0.01 Units/min Rate/Dose Verify 02/20/2025 2:00 PM EDT 0.02 Units/min 6 mL/hr Restarted 02/20/2025 1:57 PM EDT 0.02 Units/min 6 mL/hr Rate/Dose Verify 02/20/2025 5:00 AM EDT 0.02 Units/min 6 m L/hr documented in this encounter Active and Recently Administered Medications Times are shown in EDT. Scheduled Medication Order 02/24/2025 02/25/2025 02/26/2025 acetaminophen (TYLENOL) tablet 975 mg(Linked Group 1) 975 mg, Oral, 3 times daily, First dose (after last modification) on Meli 02/21/25 at 1400 0857 (Given - Provider: Angy Lema RN)1355 (Given - Provider: Angy Lema, TIFFANY)2032 (Given - Provider: Milad Hatch RN) 0856 (Given - Provider: Dee Almeida RN)1336 (Given - Provider: Dee Almeida RN)212 (Given - Provider: Jaz Pastrana, TIFFANY) 0933 (Given - Provider: Shelby Brown) amiodarone (PACERONE) tablet 200 mg (CANCELED) 200 mg, Oral, 3 times daily, First dose on Tue02/25/25 at 0900 0856 (Given - Provider: Dee Almeida RN) amiodarone (PACERONE) tablet 200 mg 200 mg, Oral, 2 times daily, First dose (after last modification) on Tue02/25/25 at 2100, Do not administer without reviewing AM EKG. Hold if QTc >500ms and discuss with RC. 2123 (Given - Provider: Jaz Pastrana RN) 0933 (Given - Provider: Shelby Brown) apixaban (ELIQUIS) tablet 5 mg 5 mg, Oral, 2 times daily, First dose on Tue02/25/25 at 0930, Take with or without food 0901 (Given - Provider: Dee Almeida RN)212 (Given - Provider: Jaz Pastrana RN) 0934 (Given - Provider: Shelby Brown) aspirin EC tablet 81 mg (CANCELED) 81 mg, Oral, Daily, First dose on Tue02/25/25 at 0930, Administer with water, food, or milk to decrease GI upset. 900 (Given - Provider: Dee Almeida RN) aspirin tablet 325 mg (CANCELED) 325 mg, Oral, Daily, First dose on Tue02/20/25 at 0900 0857 (Given - Provider: Angy Lema RN) aspirin tablet 325 mg 325 mg, Oral, Daily, First dose on Tue02/26/25 at 0900 0934 (Given - Provider: Shelby Brown) bisacodyl (DULCOLAX) EC tablet 5 mg (COMPLETED) 5 mg, Oral, Daily, First dose on Tue02/25/25 at 0945, For 1 dose, Do NOT crush or chew. 900 (Given - Provider: Dee Almeida RN) cyanocobalamin (vitamin B-12) tablet 125 mcg 125 mcg, Oral, Daily, First dose on Tue02/20/25 at 0900 0857 (Given - Provider: Agny Lema RN) 0857 (Given - Provider: Dee Almeida RN) 0932 (Given - Provider: Shelby Brown) docusate sodium (COLACE) capsule 100 mg 100 mg, Oral, 2 times daily, First dose on Tue02/25/25 at 0145 0110 (Given - Provider: Milad Hatch RN)0856 (Given - Provider: Dee Almeida RN)2124 (Given - Provider: Jaz Pastrana RN) 0933 (Given - Provider: Shelby Brown) folic acid (FOLVITE) tablet 1,000 mcg 1,000 mcg, Oral, Every morning, First dose on Tue02/20/25 at 0900 0857 (Given - Provider: Angy Lema RN) 0856 (Given - Provider: Dee Almeida RN) 0933 (Given - Provider: Shelby Brown) furosemide (LASIX) tablet 40 mg (CANCELED) 40 mg, Oral, 2 times daily, First dose (after last modification) on Tue02/24/25 at 0900 0857 (Given - Provider: Angy Lema RN)1531 (Given - Provider: Angy Lema RN) lidocaine (UROJET) 2 % jelly 5 mL 5 mL, Topical, Once, On Tue02/20/25 at 0200, For 1 dose, Apply to urethral meatus prior to abbott insertion For TOPICAL Use Only lidocaine 4 % 2 patch 2 patch, Transdermal, Administer over 12 Hours, Every 24 hours, First dose on Tue02/19/25 at 1530, Apply to chest Do not place external heat sources such as heating pads over patches. 1119 (Not Given - Provider: Angy Lema RN - Reason: Patient/family refused) 2120 (Patch Applied - Provider: Jaz Pastrana RN) 09 (Patch Removed - Provider: Shelby Brown) magnesium citrate oral solution 296 mL 296 mL, Oral, Once, On Tue02/22/25 at 1130, For 1 dose, Take this product 2 or more hours before or after other drugs. Chill prior to administration to improve palatability. Please give with 8 oz of water. melatonin tablet 5 mg 5 mg, Oral, Nightly, First dose on Tue02/19/25 at 2100 2032 (Given - Provider: Milad Hatch, TIFFANY) 2123 (Given - Provider: Jaz Pastrana RN) metoprolol succinate (TOPROL-XL) ER tablet 25 mg 25 mg, Oral, 2 times daily, First dose (after last modification) on Tue02/24/25 at 1800, Do NOT crush or chew., Hold Parameters: Systolic BP LESS than 100 mmHg, Hold Parameters: Heart Rate LESS than 60 bpm 1745 (Given - Provider: Angy Lema RN) 0856 (Given - Provider: Dee Almeida RN)212 (Given - Provider: Jaz Pastrana RN) 0933 (Given - Provider: Shelby Brown) metoprolol tartrate (LOPRESSOR) IMMEDIATE release tablet 6.25 mg (CANCELED) 6.25 mg, Oral, Every 6 hours scheduled, First dose (after last modification) on Tue02/24/25 at 0800, Hold Parameters: Other Systolic BP, Other Systolic BP LESS than (mmHg): 110, Hold Parameters: Heart Rate LESS than 60 bpm 1118 (Given - Provider: Angy Lema RN) omeprazole (PriLOSEC) capsule 40 mg 40 mg, Oral, Daily, First dose (after last modification) on Tue02/20/25 at 0900, Capsule may be opened and contents added to 1 tablespoon of applesauce (use immediately after adding to applesauce); mixture should not be chewed or warmed. Do NOT crush or chew. 0857 (Given - Provider: Angy Lema RN) 0856 (Given - Provider: Dee Almeida RN) 0932 (Given - Provider: Shelby Brown) polyethylene glycol packet 17 g, Oral, 2 times daily, First dose (after last modification) on Tue02/22/25 at 2100 0819 (Not Given - Provider: Angy Lema RN - Reason: Patient/family refused)153 (Given - Provider: Angy Lema RN)2037 (Given - Provider: Milad Hatch RN) 0857 (Given - Provider: Dee Almeida RN)2125 (Not Given - Provider: Jaz Pastrana RN - Reason: Patient/family refused) 0936 (Not Given - Provider: Shelby Brown - Reason: Patient/family refused) potassium chloride SA (KLOR-CON M20) ER tablet 20 mEq 20 mEq, Oral, 2 times daily, First dose on Tue02/23/25 at 0900, Please hold for K greater than 4.5 Swallow tablets whole, do not crush or chew. Capsules may be opened and contents sprinkled on a spoonful of applesauce or pudding and should be swallowed immediately without chewing. Microencapsulated tablets may be dissolved in 6 ounces of water, stir and administer immediately. 0857 (Given - Provider: Agny Lema RN)2032 (Given - Provider: Milad Hatch RN) 0856 (Not Given - Provider: Dee Almeida RN - Reason: Contraindicated - Comment: k 4.8)2123 (Given - Provider: Jaz Pastrana RN) 0934 (Given - Provider: Shelby Brown) senna (SENOKOT) tablet 3 tablet(Linked Group 2) 3 tablet, Oral, 2 times daily, First dose (after last modification) on Tue02/22/25 at 2100 0819 (Not Given - Provider: Angy Lema RN - Reason: Patient/family refused)2037 (Given - Provider: Milad Hatch, TIFFANY) 0856 (Given - Provider: Dee Almeida RN)2123 (Given - Provider: Jaz Pastrana, TIFFANY) 0938 (Not Given - Provider: Shelby Brown - Reason: Patient/family refused) sennosides 8.8 mg/5 mL syrup 17.6 mg(Linked Group 2) 17.6 mg, Oral, 2 times daily, First dose (after last modification) on Tue02/22/25 at 2100, If unable to tolerate tablet 0819 (See Alternative - Provider: Angy Lema RN)2037 (See Alternative - Provider: Milad Hatch RN) 0856 (See Alternative - Provider: Dee Almeida RN)2123 (See Alternative - Provider: Jaz Pastrana RN) 0938 (See Alternative - Provider: Shelby Brown) torsemide (DEMADEX) tablet 20 mg 20 mg, Oral, 2 times daily, First dose on Tue02/25/25 at 0900 0856 (Given - Provider: Dee Almeida RN)1606 (Given - Provider: Dee Almeida RN) 0933 (Given - Provider: Shelby Brown) PRN Medication Order 02/24/2025 02/25/2025 02/26/2025 albuterol 2.5 mg /3 mL (0.083 %) nebulizer solution 2.5 mg 2.5 mg, Nebulization, Every 2 hour PRN, shortness of breath/dyspnea, Starting on Tue02/19/25 at 1437 baclofen (LIORESAL) tablet 5 mg 5 mg, Oral, 3 times daily PRN, spasm, Starting on Tue02/22/25 at 1330, Administer with food or milk. dextrose (D50W) 50 % syringe 25 g(Linked Group 3) 25 g, Intravenous, Once as needed, low blood sugar (provide value), glucose <50 mg/dL, Starting on Tue02/20/25 at 0300, For 1 dose, For hyperkalemia use. Do not give orange juice for correction of hypoglycemia. If unable to take PO and: Blood glucose less than 50 mg/dL or impaired consciousness, give 25 g (full amp). Blood glucose 50-69 mg/dL, give 12.5 g (half amp) call RC. Recheck blood glucose in 15 minutes and repeat prn. magnesium sulfate 2 gram/50 mL (4%) in Sterile Water IVPB premix 2 g(Linked Group 4) 2 g, Intravenous, Administer over 30 Minutes, at 100 mL/hr, As needed, other (free text field), Mg Replacement Scale, Starting on 02/23/25 at 0721, Magnesium Replacement Scale (IV) Option 2: Magnesium level to be checked and repleted daily. <1.4 Give 4 g and call RC if <1 1.4-1.6 4 g 1.7-2 2 g >2 Do not replace Hold scale if creatinine greater than 2 mg/dL or rise of greater than 0.5 in 24 hrs, and contact RC. 0637 (New Bag - Provider: Milad Hatch RN) magnesium sulfate in water 4 gram/100 mL (4 %) IVPB premix(Linked Group 4) 4 g, Intravenous, Administer over 60 Minutes, at 100 mL/hr, As needed, other (free text field), Mg Replacement Scale (scale defined in 2 gram linked order), Starting on 02/23/25 at 0721, See 2 gram linked order for magnesium replacement scale 0637 (See Alternative - Provider: Milad Hatch RN) oxyCODONE tablet 5-10 mg 5-10 mg, Oral, Every 4 hours PRN, moderate pain or 4-6 (on a general 0-10 scale), other (free text field), hold if somnolent, RR<10, Starting on Tue02/19/25 at 1437 0000 (Given - Provider: Milad Hatch RN)0618 (Given - Provider: Milad Hatch RN)1533 (Given - Provider: Angy Lema RN)2033 (Given - Provider: Milad Hatch, TIFFANY) 0000 (Given - Provider: Milad Hatch RN)0400 (Given - Provider: Milad Hatch RN)0855 (Given - Provider: Dee Almeida, TIFFANY)1605 (Given - Provider: Dee Almeida, RN)2122 (Given - Provider: Jaz Pastrana, TIFFANY) 0144 (Given - Provider: Jaz Pastrana, TIFFANY) potassium chloride (KLOR-CON) packet 20-80 mEq 20-80 mEq, Oral, As needed, other (free text field), KCL Replacement Scale, Starting on Tue02/22/25 at 1416, KCL Replacement Scale (Oral) Option 2: Potassium level to be checked and repleted daily. <3.1 80 mEq (Give 40 mEq x 1 & call RC. After 2 hrs, give another 40 mEq) 3.1-3.4 60 mEq (Give 40 mEq x 1. After 2 hrs, give another 20 mEq) 3.5-3.8 40 mEq 3.9-4.1 20 mEq >4.1 Do not replace Hold scale if creatinine greater than 2 mg/dL or rise of greater than 0.5 in 24hrs, and contact RC. Dissolve each 20 mEq in at least 4 ounces of cold water or other beverage. 0618 (Given - Provider: Milad Hatch, TIFFANY) simethicone (MYLICON) chewable tablet 80 mg 80 mg, Oral, Every 6 hours PRN, gas, Starting on Tue02/22/25 at 0150, Chewable Linked Groups Order Group 1: acetaminophen (TYLENOL) tablet 975 mgJump to med 975 mg, Oral, 3 times daily, First dose (after last modification) on Tue02/21/25 at 1400 Group 2: senna (SENOKOT) tablet 3 tabletJump to med 3 tablet, Oral, 2 times daily, First dose (after last modification) on Tue02/22/25 at 2100 Or sennosides 8.8 mg/5 mL syrup 17.6 mgJump to med 17.6 mg, Oral, 2 times daily, First dose (after last modification) on Tue02/22/25 at 2100, If unable to tolerate tablet Group 3: dextrose (D50W) 50 % syringe 25 g (COMPLETED) 25 g, Intravenous, Once, On Tue02/20/25 at 0300, For 1 dose, Check POCT glucose before giving Dextrose. Give insulin only after dextrose. For hyperkalemia use. Followed by insulin regular (HumuLIN-R,NovoLIN-R) injection 10 Units (COMPLETED) 10 Units, Intravenous, Once, On Tue02/20/25 at 0300, For 1 dose, IV Administration for Hyperkalemia: Use IV-Insulin Syringe (Needleless), Insulin type: Other, Additional Comments: hyperkalemia Followed by dextrose (D50W) 50 % syringe 25 gJump to med 25 g, Intravenous, Once as needed, low blood sugar (provide value), glucose <50 mg/dL, Starting on Tue02/20/25 at 0300, For 1 dose, For hyperkalemia use. Do not give orange juice for correction of hypoglycemia. If unable to take PO and: Blood glucose less than 50 mg/dL or impaired consciousness, give 25 g (full amp). Blood glucose 50-69 mg/dL, give 12.5 g (half amp) call RC. Recheck blood glucose in 15 minutes and repeat prn. Group 4: magnesium sulfate 2 gram/50 mL (4%) in Sterile Water IVPB premix 2 gJump to med 2 g, Intravenous, Administer over 30 Minutes, at 100 mL/hr, As needed, other (free text field), Mg Replacement Scale, Starting on 02/23/25 at 0721, Magnesium Replacement Scale (IV) Option 2: Magnesium level to be checked and repleted daily. <1.4 Give 4 g and call RC if <1 1.4-1.6 4 g 1.7-2 2 g >2 Do not replace Hold scale if creatinine greater than 2 mg/dL or rise of greater than 0.5 in 24 hrs, and contact RC. Or magnesium sulfate in water 4 gram/100 mL (4 %) IVPB premixJump to med 4 g, Intravenous, Administer over 60 Minutes, at 100 mL/hr, As needed, other (free text field), Mg Replacement Scale (scale defined in 2 gram linked order), Starting on 02/23/25 at 0721, See 2 gram linked order for magnesium replacement scale documented in this encounter Care Teams Osd Clerk Relationship Specialty Start Date End Date Faye Avelar MD [facility] [place] [address] [place] [id number] PCP - General Internal Medicine 09/19/23 Shagufta Bhakta MD, PhD [address] [facility] [address] [place] [address] [email or web address] Interventional Cardiology 10/11/23 Waqas Diaz MD [address] [place] [address] [place] [id number] Gastroenterology 02/14/25 documented as of this encounter Additional Source Comments The information contained in this document represents components of the legal health record. It is not the complete legal health record.[facility]
[2025-03-01 09:58] VITALS: BP 112/60; PULSE 70; O2SAT 98; BMI 23.6
--- NOTE | 2025-03-01 09:58 | A.OFFPC_ITS ---
Vital Signs 03/01/25 09:58 Height 6 ft Weight 174 lb BMI 23.6 BP 112/60 Blood Pressure Location Rt brachial Position Sitting Pulse 70 Pulse Source Pulse Oximeter Pulse Oximetry (%) 98 Intake Visit Reasons: Heart surgery Follow up Allergies No Known Allergies Allergy (Verified 03/01/25 09:59) Medication List - Last Reconciled 03/01/25 by Faye Avelar MD cholecalciferol (vitamin D3) 50 mcg PO DAILY cyanocobalamin (vitamin B-12) (Vitamin B-12) 500 mcg PO DAILY folic acid 1 mg PO DAILY omeprazole 20 mg PO QAM Tobacco use date assessed: 08/17/24 Dental Screening Dental Screen Date: 08/17/24 HPI Heart surgery Follow up HPI Details History The patient is a 50-year-old male presenting with post-mitral valve repair follow-up and related symptoms. Post-mitral valve repair: - Had mitral valve repaired, [place] - Discharged on Tuesday, three days befo re today's visit. - Symptoms post-surgery: experiencing so me chest pain, shortness of breath, mild fluid discharge from incision site initially but has stopped since, and ecchymosis. - Noticed slight increase in energy leve ls as of yesterday. - Has been advised not to lift more than a gallon of milk until cleared. - Currently not driving; will resume aft er two weeks due to surgical prec autions. Shortness of breath: - Present post-surgery, transient and ex pected as part of recovery. Medical History: - Atrial Fibrillation after procedure esteves d episdoe leading to initiation of anticoagulation therapy by surgeon anemia that need to be monitored Medications: - Omeprazole for GERD - Eliquis (blood thinner) post-mitral va lve repair, planned for 3 months due to recent AFib episode - Potassium supplement Problem List - Post-mitral valve repair - Atrial Fibrillation, in regular rate a t this time - Shortness of breath - Chest pain - Gastroesophageal reflux disease (GERD) [place] [facility] - Scheduled follow-up with solar mechanical engineer and surgeon in [place] by April 03. Plan - Arrange a CBC to monitor blood levels post-surgery. - Continual monitoring of symptoms such as chest pain and shortness of breath; advise on typical post-surgical recovery timeline. - Continue Eliquis for anticoagulation d ue to recent AFib, planned duration of three months; assess reevaluation needed. - Potassium supplement to continue due t o slightly low pre-surgery levels, reassessment as required. - Assess the ongoing need for iron suppl ements post-surgery based on follow-up lab results. - Discussed precautions such as avoidanc e of heavy lifting and driving for two weeks due to surgical recovery. - Recommend wearing a mask and avoiding crowded places to prevent infections during recovery. Review of Systems General: No fever no chills neurological: No headaches no dizziness ear nose throat: No sore throat no hearing difficulty no ear pain cardiovascular: No syncope, no palpitations gastrointestinal: No nausea vomiting or diarrhea skin: post surgical wound still healing / have discomfort Physical Exam general: No acute distress, slight shortness of breath HEENT: No acute findings neck: Supple respiratory system: Able to talk in full sentences, no audible wheeze, no stridor, clear to auscultation cardiovascular: S1-S2 RRR, no murmur gastrointestinal: No pain Chest : Large patch of Ecchymosis on the right side flank due to recent surgery SOFTWARE QUALITY SPECIALIST: Alert, awake, oriented x3, motor sensory intact skin: Normal turgor, incision sites healing well, bruising noted right lateral chest , no sign of infection PFSH Medical History Murmur Hx of peptic ulcer Iron deficiency anemia HTN (hypertension) Severe mitral regurgitation Surgical History History of open heart surgery History of esophagogastroduodenoscopy (EGD) H/O colonoscopy Family History Father No problems noted. Mother No problems noted. Social History Housing: House Alcohol intake: current Alcohol intake frequency: a few times a month Patient Tobacco Use Status: Current everyday Tobacco user Tobacco use type: Cigarette e-Cigarette/Vaping Use: Never Used Current occupational status: employed Cognitive needs: No Hearing needs: No Vision needs: Yes Questionnaire PHQ-9 Over the last 2 weeks, how often have you been bothered by any of the following problems? 1. Little interest or pleasure in doing things: not at all 2. Feeling down, depressed, or hopeless: not at all 3. Trouble falling or staying asleep, or sleeping too much: not at all 4. Feeling tired or having little energy: nearly every day 5. Poor appetite or overeating: not at all 6. Feeling bad about yourself - or that you are a failure or have let yourself or your family down: not at all 7. Trouble concentrating on things, such as reading the newspaper or watching television: not at all 8. Moving or speaking so slowly that other people could have noticed. Or the opposite - being so fidgety or restless that you have been moving around a lot more than usual: not at all 9. Thoughts that you would be better off or of hurting yourself in some way: not at all Total score: 3 Depression Screening Interpretation: Negative Depression Screening Done: Yes 56431 - PHQ-9 Billing: Yes Source: Developed by Drs. Waqas Rutledge, Carol Colon, Oren Brown and colleagues, with an educational kayla from [employer]. Thrive Questionnaire Date Thrive assessed: 08/17/24 I am a: Patient What is your living situation today?: I have a steady place to live Within the past 12 months, did the food you bought not last and you didn't have the money to get more?: Never true Within the past 12 months, did you worry whether your food would run out before you got money to buy more?: Never true Do you have trouble paying for medicines?: No Do you have trouble getting transportation to medical appointments?: No Do you have trouble paying your heating and electricity bill?: No Do you have trouble taking care of your child, family member or friend?: No Do you have trouble with day-to-day activities such as bathing, preparing meals, shopping, managing finances, etc.?: No Are you currently unemployed and looking for a job?: No Are you interested in more education?: No Please select the resources that you would like help with: None Currently or been in a relationship where the following occur: No concerns reported THRIVE Score: 0 AUDIT C Alcohol Use Questionnaire (AUDIT-C) 1. How often do you have a drink containing alcohol?: Monthly or less 2. How many drinks containing alcohol do you have on a typical day when you are drinking?: 1 or 2 3. How often do you have six or more drinks on one occasion?: Never Total Score: 1 SYBIL-7 AMB Questionnaire SYBIL-7 Date SYBIL - 7 assessed: 08/17/24 Feeling nervous, anxious, or on edge: 0 = Not at all Not being able to stop or control worryin = Not at all Worrying too much about different things: 0 = Not at all Trouble relaxin = Not at all Being so restless that it is hard to sit still: 0 = Not at all Becoming easily annoyed or irritable: 0 = Not at all Feeling afraid as if something awful might happen: 0 = Not at all Total SYBIL-7 score (0-4 normal; 5-9 mild; 10-14 moderate; 15-21 severe): 0 Source: Developed by Drs. Waqas Rutledge, Carol Colon, Oren Brown and colleagues, with an educational kayla from [employer]. SYBIL-7 Assessment Billing SYBIL-7 Assessment Tool: SYBIL-7 Assessment 66447 Physical exam (Primary Care) Vital Signs: Last Vital Signs Pulse 70 03/01/25 09:58 BP 112/60 03/01/25 09:58 Pulse Ox 98 03/01/25 09:58 BMI result Body Mass Index 23.6 Tobacco/Smoking Status: Tobacco use Status Tobacco use date assessed 08/17/24 03/01/25 10:03 Patient Tobacco Use Status Current everyday Tobacco 03/01/25 10:03 Tobacco use type Cigarette 03/01/25 10:03 e-Cigarette/Vaping Use Never Used 03/01/25 10:03 PHQ-9: PHQ-9 Score PHQ-9: Total score 3 03/01/25 10:19 Depression Screening Interpretation: Negative Thrive Assessment: Date of Thrive Assessment Date Thrive assessed 08/17/24 03/01/25 10:03 Currently or been in a relationship where the following occur: No concerns reported Coding Level of Care Code Est Pt Level 4 (85135) Diagnoses H/O mitral valve repair Z98.890 Iron deficiency anemia due to chronic blood loss D50.0 Iron deficiency anemia type: chronic blood loss Non-cardiac chest pain R07.89 Peptic ulcer K27.9 Additional Codes PHQ-9 - 38309 - PHQ-9 Billing: Yes ([id number]) SYBIL-7 Assessment Billing - SYBIL-7 Assessment Tool: SYBIL-7 Assessment 69138 ([id number]) Assessment & Plan Assessment & Plan (1) H/O mitral valve repair: Code(s): Z98.890 - Other specified postprocedural states Category: Surgical (2) Iron deficiency anemia: Code(s): D50.9 - Iron deficiency anemia, unspecified Category: Medical Qualifiers: Iron deficiency anemia type: chronic blood loss Qualified Code(s): D50.0 - Iron 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 (chronic) (3) Non-cardiac chest pain: Code(s): R07.89 - Other chest pain Category: Medical (4) Peptic ulcer: Comment: established with Dr Bangura , on PPI Code(s): K27.9 - Peptic ulcer, site unspecified, unspecified as acute or chronic, without hemorrhage or perforation Category: Medical Plan History The patient is a 50-year-old male presenting with post-mitral valve repair follow-up and related symptoms. Post-mitral valve repair: - Had mitral valve repaired, recently in [place] - Discharged on Tuesday, three days before today's visit. - Symptoms post-surgery: experiencing some chest pain, shortness of breath, mild fluid discharge from incision site initially but has stopped since, and ecchymosis. - Noticed slight increase in energy levels as of yesterday. - Has been advised not to lift more than a gallon of milk until cleared. - Currently not driving; will resume after two weeks due to surgical precautions. Shortness of breath: - Present post-surgery, transient and expected as part of recovery. Medical History: - Atrial Fibrillation after procedure had episdoe leading to initiation of anticoagulation therapy by surgeon anemia that need to be monitored Medications: - Omeprazole for GERD - Eliquis (blood thinner) post-mitral valve repair, planned for 3 months due to recent AFib episode - Potassium supplement Problem List - Post-mitral valve repair - Atrial Fibrillation, in regular rate at this time - Shortness of breath - Chest pain - Gastroesophageal reflux disease (GERD) [place] [facility] - Scheduled follow-up with solar mechanical engineer and surgeon in [place] by April 03. Plan - Arrange a CBC to monitor blood levels post-surgery. - Continual monitoring of symptoms such as chest pain and shortness of breath; advise on typical post-surgical recovery timeline. - Continue Eliquis for anticoagulation due to recent AFib, planned duration of three months; assess reevaluation needed. - Potassium supplement to continue due to slightly low pre-surgery levels, reassessment as required. - Assess the ongoing need for iron supplements post-surgery based on follow-up lab results. - Discussed precautions such as avoidance of heavy lifting and driving for two weeks due to surgical recovery. - Recommend wearing a mask and avoiding crowded places to prevent infections during recovery. Orders: Orders Vitamin D 25-OH (D2 and D3) 03/01/25 D50.0 - Iron 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 (chronic), R07.89 - Other chest pain, Z98.890 - Other specified postprocedural states Ferritin 03/01/25 D50.0 - Iron 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 (chronic), R07.89 - Other chest pain, Z98.890 - Other specified postprocedural states Complete Blood Count Auto Diff 03/01/25 D50.0 - Iron 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 (chronic), R07.89 - Other chest pain, Z98.890 - Other specified postprocedural states Comprehensive Met. Panel 03/01/25 D50.0 - Iron 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 (chronic), R07.89 - Other chest pain, Z98.890 - Other specified postprocedural states Vitamin B12 03/01/25 D50.0 - Iron 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 (chronic), R07.89 - Other chest pain, Z98.890 - Other specified postprocedural states
--- OUTSIDE RECORDS SUMMARY | 2025-03-01 10:35 | XMS_ITS | Encounter Summary ---
Author Organization [facility] Address [address] [place] [id number] Phone Care Team Providers Care Interior Decorator [employer] Name Role Phone Faye Avelar MD Primary Care Provider [phone] Shagufta Bhakta MD, PhD Unavailable [phone] Waqas Diaz MD Unavailable [phone] Encounter Details Date Type Department Care Team (Late st Contact Info) Description 02/19/2025 Procedure Pass [facility] PERIOPERATIVE DEPT [address] [place] [id number] Social History Tobacco Use Types Packs/Day Years [...] PM EDT documented as of this encounter Functional Status * Calculated C-SSRS Risk Score (Lifetime/Recent) Answer Date of Assessment Author No Risk Indicated 02/19/2025 6:00 PM EDT John Mohamud RN * [place] Suicide Severity Rating Scale (Screener/Recent Self-Report) Question Answer Date of Assessment Author 1. Wish to be (Past 1 Month) No 025 6:00 PM EDT John Mohamud, TIFFANY 2. Non-Specific Active Suici morena Thoughts (Past 1 Month) No 02/19/2025 6:00 PM EDT Neymar Mohamud RN 6. Suicidal Behavior (Lifetime) No 6:00 PM EDT John Mohamud RN documented as of this encounter Plan of Treatment Upcoming Encounters Date Type Department Care Team (Late st Contact Info) Description 04/03/2025 11:30 AM EST Office Visit [facility] Division of Cardiac Surgery [address] [facility], 6th [address], [address] [place] [address] Natalie Acosta MD [address] [facility] [address] [place] [address] [email or web address] 04/03/2025 1:30 PM EST Office Visit [facility] [address] [facility] [facility] 5th [address], [address] [place] [address] Shagufta Bhakta MD, PhD [address] [facility] [address] [place] [address] [email or web address] documented as of this encounter Visit Diagnoses Not on filedocumented in this encounter Care Teams Interior Decorator [employer]hanging Relationship Specialty Start Date End Date Faye Avelar MD [address] [place] [address] PCP - General Internal Medicine 09/19/23 Shagufta Bhakta MD, PhD [address] [place] [address] [address] [place] [address] [email or web address] Physical Interventional Cardiology 10/11/23 Waqas Diaz MD [address] [place] [address] [address] [place] [address] Gastroenterology 02/14/25 documented as of this encounter Additional Source Comments The information contained in this document represents components of the legal health record. It is not the complete legal health record.[facility]
--- OUTSIDE RECORDS SUMMARY | 2025-03-01 10:36 | XMS_ITS | Clinical Summary ---
Author Organization [facility] Address [address] [place] [phone] Phone Care Team Providers Care Postal Service Clerk Name Role Phone Faye Avelar MD Primary Care Provider [phone] Shagufta Bhakta MD, PhD Unavailable [phone] Waqas Diaz MD Unavailable [phone] Allergies No known active allergies Medications folic acid (FOLVITE) 1 MG tablet Take 1 tablet by mouth every morning. 4 Active cyanocobalamin , vitamin B-12, 250 mcg Lozg 2 lozenges Orally Once a day for 30 day(s) Active omeprazole (PRILOSEC) 40 MG capsule Take 1 capsule by mouth daily. 4 Active acetaminophen (TYLENOL) 325 mg tablet Take 1-2 tablets (325-650 mg total) by mouth 3 (three) times a day. 5 Active amiodarone (PACERONE) 200 MG tablet Take 1 tablet (200 mg total) by mouth daily. 30 tablet 5 025 Active apixaban (ELIQUIS) 5 mg tablet Take 1 tablet (5 mg total) by mouth 2 (two) times a day. 60 tablet 2 5 026 Active aspirin 325 MG tablet Take 1 tablet (325 mg total) by mouth daily. 30 tablet 2 5 026 Active lidocaine 4 % Place 2 patches onto the skin daily. 5 Active metoprolol succinate (TOPROL-XL) 25 MG 24 hr tablet Take 1 tablet (25 mg total) by mouth 2 (two) times a day. 60 tablet 2 5 026 Active oxyCODONE 5 MG immediate release tablet Take 0.5-1 tablets (2.5-5 mg total) by mouth every 8 (eight) hours as needed for pain (specific location in comments). Partial fill ok for acute post operative pain. Do not drive while taking, do not combine with alcohol or other narcotics 18 tablet 5 Active senna (SENOKOT) 8.6 mg tablet Take 1 tablet by mouth 2 (two) times a day for 7 days. To prevent constipation 14 tablet 5 Active torsemide (DEMADEX) 20 MG tablet Take 1 tablet (20 mg total) by mouth daily for 7 days. 7 tablet 5 Active potassium chloride SA (KLOR-CON M20) 20 MEQ ER tablet Take 1 tablet (20 mEq total) by mouth daily for 7 days. 7 tablet 5 025 Active valsartan (DIOVAN) 40 MG tablet Take 40 mg by mouth daily. Discontin ued(Stop Taking at Discharge ) LOMOTIL 2.5-0.025 mg per tablet Take 1 tablet by mouth 4 (four) times a day as needed. 4 Discontin ued(Stop Taking at Discharge ) cholecalcifero l (VITAMIN D3) 2,000 unit tablet Take 1,000 Units by mouth daily. 025 Discontin ued(Stop Taking at Discharge ) atenolol (TENORMIN) 25 MG tablet Take 1 tablet (25 mg total) by mouth daily. 90 tablet 3 4 025 Discontin ued(Stop Taking at Discharge ) mupirocin (BACTROBAN) 2 % ointment by Nasal route 2 (two) times a day for 10 doses. Take a pea size on a cue tip and swab each nostril once for 10 doses. Take first dose 02/14 at night, then twice a day with the last dose in the morning the day of surgery (02/19 in the AM). 22 g 025 Discontin ued(Stop Taking at Discharge ) Active Problems Problem Noted Date Diagnosed Date Mitral valve insufficiency, unspecified etiology 02/19/2025 Chronic gastric ulcer 08/27/2024 Anemia 08/27/2024 Rectal [...] visit around 01/11. Per patient echo at [facility] showed severe MR. Of note, he was born with murmur. He plays tennis for 2-3 hours per week and pickle ball for 1 hour per week. P: echo, dental consult Encounters Date Type Department Care Team Description 02/28/2025 Telephone [facility] Division of Cardiac Surgery [address] [place] [address], 6th Floor, [address] [place] [address] Panchito Stark CNP 02/19/2025 7:30 AM EDT - 02/19/2025 2:11 PM EDT Surgery [facility] PERIOPERATIVE DEPT [address] [place] [phone] Natalie Acosta MD ROBOTIC REPAIR MITRAL VALVE ( tissue ) 02/19/2025 7:18 AM EDT Anesthesia Event [facility] PERIOPERATIVE DEPT [address] [place] [phone] Colin Layne MBBS Hayes, Colleen Ann, DO 02/19/2025 6:40 AM EDT Ancillary Procedure [facility] Imaging Bedside Ultrasound VRT [address] [place] [address] Colin Layne MBBS Melnitchouk, Serguei, MD 02/19/2025 5:33 AM EDT - 02/26/2025 11:18 AM EDT Hospital Encounter [facility] [address] [place] [phone] Natalie Acosta MD Discharge Disposition: Home or Self Care 02/19/2025 Procedure Pass [facility] Cardiac US [address] [place] [address] 02/19/2025 Procedure Pass [facility] PERI[facility]IVE DEPT [address] [place] [phone] 02/18/2025 Documentation [facility] Division of Cardiac Surgery [address] [facility], 6th Floor, [address] [place] [address] Ariana Elaine RN 2025 Telephone [facility] Division of Cardiac Surgery [address] [facility], 6th Floor, [address] [place] [address] Panchito Stark, MONOGRAM OPERATOR 02/14/2025 Orders Only [facility] Division of Cardiac Surgery [address] [place] [address], 6th Floor, [address] [place] [address] Med Kaye MD 02/14/2025 Telephone [facility] Division of Cardiac Surgery [address] [place] [address], 6th Floor, [address] [place] [address] Panchito Strak, MONOGRAM OPERATOR 02/12/2025 Telephone [facility] Division of Cardiac Surgery [address] [facility], 6th Floor, [address] [place] [address] Panchito Stark, MONOGRAM OPERATOR 02/06/2025 Documentation [facility] Division of Cardiac Surgery [address] [facility], 6th Floor, [address] [place] [phone] Cornelia Palcaios RN 02/05/2025 2:14 PM EDT - 02/05/2025 11:59 PM EDT Hospital Encounter [facility] Imaging - Xrcarrington, Peoples 2 [address] [facility], 2nd [place] [address] Renetta Stevens CNP Discharge Disposition: Home or Self Care 02/05/2025 2:01 PM EDT - 02/05/2025 2:13 PM EDT Hospital Encounter [facility] [place] [address] Natalie Acosta MD Discharge Disposition: Home or Self Care 02/05/2025 1:00 PM EDT Pre-Admission Testing [facility] Division of Cardiac Surgery [address] [facility], 6th Floor, [address] [place] [address] Natalie Acosta MD Dyspnea, unspecified type (Primary Dx); Preop testing 02/05/2025 Orders Only [facility] EKG LAB [facility] [address] [place], [place] [phone] Jovana Luis Preop testing 01/18/2025 Documentation [facility] Division of Cardiac Surgery [address] [facility], 6th Floor, [address] [place] [address] Renetta Stevens CNP 11/29/2024 Telephone [facility] [address] [place] [phone] Natalie Acosta MD from Last 3 Months Immunizations Immunization Administration Dates Next Due INFLUENZA, SPLIT VIRUS, TRIVALENT PF 02/26/2025( Deferred: Patient Refused) Family History Medical History Relation Comments Coronary [...] Mass Index 24.7 02/20/2025 10:30 PM EDT Plan of Treatment Upcoming Encounters Date Type Department Care Team (Late st Contact Info) Description 04/03/2025 11:30 AM EST Office Visit [facility] Division of Cardiac Surgery [address] [place] [address], 6th Floor, [address] [place] [address] Natalie Acosta MD [address] [place] [phone] [email or web address] 04/03/2025 1:30 PM EST Office Visit [facility] [address] [facility], 5th Floor, [address] [place] [address] Shagufta Bhakta MD, PhD [address] [place] [address] [email or web address] Health Maintenance Due Date Last Done Comments Adult Td,Tdap Booster 1974 LIPID PANEL 1974 TSH LEVEL 1974 DEPRESSION SCREENING 1986 SMOKING Hx and SMOKELESS TOBACCO SCREENING 1987 HEPATITIS C SCREENING 02/16/1992 HIV ONE-TIME SCREENING (18-65 YEARS) 02/16/1992 PNEUMOCOCCAL VACCINES (50+ years) (1 of 2 - PCV) 1993 COLOGUARD 2019 COLONOSCOPY 2019 COLORECTAL CANCER SCREENING 2019 FIT TEST 2019 FOBT 2019 SIGMOIDOSCOPY 2019 VIRTUAL COLONOSCOPY 2019 ZOSTER VACCINES (1 of 2) 02/16/2024 INFLUENZA VACCINE (#1) 2024 COVID-19 VACCINE ( - season) 2025 ALT LEVEL (ALANINE AMINOTRANSFERASE) 02/22/2026 02/22/2025, 02/21/2025, 02/20/2025, Additional history exists CREATININE LEVEL 02/26/2026 02/26/2025, 10/2024, 02/24/2025, Additional history exists POTASSIUM LEVEL 02/26/2026 02/26/2025, 10/0 10/2024, 02/24/2025, Additional history exists RSV VACCINE (1 - 1-dose 75+ series) 2049 HEPATITIS A VACCINES Aged Out No long [...] age to complete this topic Medical Devices Implanted Type Area Shellacker Device Identifier Shelf Expiration Date Model / Serial / Lot Ring Annuloplasty 32mm Mitral Jazmín Guerra Eligoy Band Silicone Rubber Polyester Cover - [id number] Implanted:Qty: 1 on 02/19/2025 by Natalie Acosta MD at [facility] Left: Heart [employer] 10/31/2029 [id number] / [id number] / Procedures Procedure Name Priority Date/Time Associated Diagnosis Comments TYPE AND SCREEN (ABO,RH,ANTIBODY SCREEN) Routine 02/26/2025 6:04 AM EDT CBC Routine 02/26/2025 6:04 AM EDT MAGNESIUM Routine [...] 2 VIEWS Routine 02/23/2025 5:45 AM EDT MAGNESIUM Routine 02/23/2025 4:58 AM EDT CBC Routine 02/23/2025 4:58 AM EDT BASIC METABOLIC PANEL Routine 02/23/2025 4:58 AM EDT ECG 12-LEAD Routine 02/23/2025 4:45 AM EDT XR CHEST PORTABLE Routine 02/22/2025 11: 45 AM EDT LACTIC ACID (LACTATE) Routine 02/22/2025 7:37 AM EDT MAGNESIUM Routine 02/22/2025 7:37 AM EDT BASIC METABOLIC PANEL Routine 02/22/2025 7:37 AM EDT XR CHEST PORTABLE Routine 02/22/2025 5:1 7 AM EDT TYPE AND SCREEN (ABO,RH,ANTIBODY SCREEN) Routine 02/22/2025 1:47 AM EDT LFTS (HEPATIC PANEL) Routine 02/22/2025 1:43 AM EDT PHOSPHORUS Routine 02/22/2025 1:43 AM EDT MAGNESIUM Routine 02/22/2025 1:43 AM EDT BASIC METABOLIC PANEL Routine 02/22/2025 1:43 AM EDT PTT Routine [...] CREAT. COMMENT Routine 02/21/2025 2:06 AM EDT BASIC METABOLIC PANEL Routine 02/21/2025 2:06 AM EDT LFTS (HEPATIC PANEL) Routine 02/21/2025 2:06 AM EDT PHOSPHORUS Routine 02/21/2025 2:06 AM EDT MAGNESIUM Routine 02/21/2025 2:06 AM EDT PTT Routine 02/21/2025 2:06 AM EDT PT-INR Routine 02/21/2025 2:06 AM EDT CBC Routine 02/21/2025 2:06 AM EDT PREPARE RBC Routine 02/21/2025 12:41 AM EDT XR CHEST PORTABLE Routine 02/20/2025 10: 18 PM EDT CREAT. COMMENT Routine 02/20/2025 8:30 PM EDT LACTATE (BLOOD GAS) Routine 02/20/2025 8 :30 PM EDT PHOSPHORUS Routine 02/20/2025 8:30 PM EDT MAGNESIUM Routine 02/20/2025 8:30 PM EDT BASIC METABOLIC PANEL Routine 02/20/2025 8:30 PM EDT ARTERIAL BLOOD GAS PLUS Routine 02/20/2025 8:30 PM EDT AMY COMP [...] (HEPATIC PANEL) Routine 02/20/2025 1:33 AM EDT LIPASE Routine 02/20/2025 1:33 AM EDT PHOSPHORUS Routine 02/20/2025 1:33 AM EDT MAGNESIUM Routine 02/20/2025 1:33 AM EDT BASIC METABOLIC PANEL Routine 02/20/2025 1:33 AM EDT PTT Routine 02/20/2025 1:33 AM EDT PT-INR Routine 02/20/2025 1:33 AM EDT CBC Routine 02/20/2025 1:33 AM EDT OXYGEN SATURATION, MIXED VENOUS Routine 02/20/2025 1:02 AM EDT ARTERIAL BLOOD GAS PLUS Routine 02/20/2025 1:02 AM EDT LACTATE (BLOOD GAS) Routine 02/20/2025 1 :02 AM EDT ARTERIAL BLOOD GAS PLUS Routine 02/19/2025 8:42 PM EDT LACTATE (BLOOD GAS) Routine 02/19/2025 8 :42 PM EDT OXYGEN SATURATION, MIXED VENOUS Routine 02/19/2025 8:42 PM EDT LACTATE (BLOOD GAS) Routine 02/19/2025 5 :22 PM EDT ARTERIAL BLOOD GAS PLUS Routine 02/19/2025 5:22 PM EDT LACTATE (BLOOD GAS) Routine 02/19/2025 4 :50 PM EDT ARTERIAL BLOOD GAS PLUS Routine 02/19/2025 4:50 PM EDT ARTERIAL BLOOD GAS PLUS Routine 02/19/2025 3:21 PM EDT LACTATE (BLOOD GAS) Routine 02/19/2025 3 :21 PM EDT XR CHEST PORTABLE Routine 02/19/2025 2:5 5 PM EDT VANCOMYCIN RESISTANT ENTEROCOCCI (VRE) RECTAL SCREEN Routine 02/19/2025 2:40 PM EDT MRSA NASAL SCREEN Routine 02/19/2025 2:4 0 PM EDT OXYGEN SATURATION, MIXED VENOUS Routine 02/19/2025 2:38 PM EDT ARTERIAL BLOOD GAS PLUS Routine 02/19/2025 2:38 PM EDT LACTATE (BLOOD GAS) Routine 02/19/2025 2 :38 PM EDT CBC Routine 02/19/2025 2:38 PM EDT PT-INR Routine 02/19/2025 2:38 PM EDT PTT Routine 02/19/2025 2:38 PM EDT BASIC METABOLIC PANEL Routine 02/19/2025 2:38 PM EDT MAGNESIUM Routine 02/19/2025 2:38 PM EDT PHOSPHORUS Routine 02/19/2025 2:38 PM EDT LIPASE Routine 02/19/2025 2:38 PM EDT LFTS (HEPATIC PANEL) Routine 02/19/2025 2:38 PM EDT FIBRINOGEN STAT 02/19/2025 1:51 PM EDT PTT STAT 02/19/2025 1:51 PM EDT PT-INR STAT 02/19/2025 1:51 PM EDT CBC STAT 02/19/2025 1:51 PM EDT LACTATE (BLOOD GAS) STAT 02/19/2025 1 :51 PM EDT ARTERIAL BLOOD GAS PLUS STAT 02/19/2025 1:51 PM EDT POCT ACTFROM [...] PROTAMINE TITRATION Routine 02/19/2025 10:36 AM EDT ASSIGN RED BLOOD CELLS Routine 02/19/2025 10:29 AM EDT PUMP BLOOD GAS PLUS STAT 02/19/2025 1 0:29 AM EDT LACTATE (BLOOD GAS) STAT 02/19/2025 [...] PROTAMINE TITRATION Routine 02/19/2025 8:44 AM EDT DC ECHO HEART TRANSESOPH PROBE PLACEMT PERF Routine 02/19/2025 8:29 AM EDT ANES SINGLE LUMEN PA LINE - PA LINE Routine 02/19/2025 8:28 AM EDT ANES VENOUS SHEATH - PA LINE Routine 02/19/2025 8:28 AM EDT DC INSERT/PLACE FLOW DIRECT CATH PERF Routine 02/19/2025 8:28 AM EDT AIRWAY PLACEMENT Routine 02/19/2025 7:47 AM EDT POCT HEPARIN DOSE RESPONSE Routine 02/19/2025 7:45 AM EDT BASIC METABOLIC PANEL STAT 02/19/2025 7:45 AM EDT LACTATE (BLOOD GAS) STAT 02/19/2025 7 :45 AM EDT ARTERIAL BLOOD GAS PLUS STAT 02/19/2025 7:45 AM EDT DC MITRALPLASTY W CP BYPASS 02/19/2025 7:33 AM EDT Mitral valve prolapse Special Needs CPT Code for : Minimally Invasive MV Repair 34111 Robotic DC INSERT CATH ART PERCUT SHORTTERM PERF Routine 02/19/2025 7:26 AM EDT ANESTHESIA POINT OF CARE IMAGE CAPTURE Routine 02/19/2025 6:36 AM EDT OUTSIDE LAB Routine 02/14/2025 3:14 PM EDT ECG 12-LEAD Routine 02/05/2025 2:28 PM EDT [...] Routine 02/05/2025 2:11 PM EDT Preop testing from Last 3 Months Results * (ABNORMAL) CBC (02/26/2025 6:04 AM EDT) Only the most recent of9 resultswithin the time period is included. WBC 5.75 4.00 - 11.00 K/uL [facility] RBC 3.39(L) 4.50 - 5.90 M/uL [facility] HGB 9.2(L) 13.5 - 17.5 g/dL [facility] HCT 28.8(L) 41.0 - 53.0 % [facility] PLT 236 150 - 450 K/uL [facility] MCV 85.0 80.0 - 100.0 fL [facility] MCH 27.1 27.0 - 31.0 pg [facility] MCHC 31.9(L) 32.0 - 36.0 g/dL [facility] RDW 20.9(H) 11.5 - 14.5 % [facility] MPV 9.3 8.4 - 12.0 fL [facility] NRBC 0.00 0.00 /100 WBCs [facility] ABSOLUTE NRBC 0.00 0.00 K/uL [facility] Blood 02/26/2025 6:04 AM EDT 02/26/2025 6:57 AM EDT Marlyn Garrido CNP, DNP LAB BLOOD ORDERABLES Final Result Performing Organization Address City/[facility]/ZIP Co de Phone Number [address] [address] * Type and Screen (ABO,Rh,Antibody Screen) (02/26/2025 6:04 AM EDT) Only the most recent of3 resultswithin the time period is included. Expiration Date of Sample 03/01/2025 11:59 PM [facility] Antibody Screen Negative 02/26/2025 7:27 AM EDT [facility] Resulting Agency [facility] ABO O 02/26/2025 7:11 AM EDT [facility] Rh Positive 02/26/2025 7:11 AM EDT [facility] Blood 02/26/2025 6:04 AM EDT 02/26/2025 6:23 AM EDT Pita Barney PA-C BLOOD BANK TEST ORDERABLE S Final Result Performing Organization Address [facility] Co de Phone Number [address] [address] * Magnesium (02/26/2025 6:04 AM EDT) Only the most recent of15 resultswithin the time period is included. MAGNESIUM 2.1 1.7 - 2.4 mg/dL [facility] Blood 02/26/2025 6:04 AM EDT 02/26/2025 6:57 AM EDT Marlyn Garrido CNP, DNP LAB BLOOD ORDERABLES Final Result Performing Organization Address City/[facility]/ZIP Co de Phone Number [address] [address] * (ABNORMAL) Basic metabolic panel (02/26/2025 6:04 AM EDT) Only the most recent of17 resultswithin the time period is included. SODIUM 131(L) 135 - 145 mmol/L [facility] POTASSIUM 4.5 3.4 - 5.0 mmol/L [facility] CHLORIDE 94(L) 98 - 108 mmol/L [facility] CO2 30 23 - 32 mmol/L [facility] BUN 16 8 - 25 mg/dL [facility] CREATININE 1.25 0.60 - 1.30 mg/dL [facility] GLUCOSE 105 70 - 110 mg/dL [facility] CALCIUM 9.1 8.5 - 10.5 mg/dL [facility] EGFR 70 >59 mL/min/1. 73m2 [facility] Comment:Estimated glomerular filtration rate calculated using the CKD-EPI refit equation. ANION GAP 7 3 - 17 mmol/L [facility] Blood 02/26/2025 6:04 AM EDT 02/26/2025 6:57 AM EDT us Marlyn Garrido MONOGRAM OPERATOR, DNP LAB BLOOD ORDERABLES Final Result [facility] [address] [place] [address] * XR CHEST PA AND LATERAL 2 [...] IMG XR CHEST Final Res ult * XR CHEST PA AND LATERAL 2 [...] clinician's provided indication for this examination in [facility]: S/P Cardiac Surgery COMPARISON: XR CHEST PORTABLE [...] clinician's provided indication for this examination in [facility]:S/P Cardiac Surgery COMPARISON: XR CHEST PORTABLE 2024- FINDINGS: Devices/Tubes/Lines: None. Lungs: Low lung volumes. [...] excluded. Stable small pleural effusions. No pneumothorax. Gonzalo Parsons PA-C IMG XR CHEST Final R esult * ECG 12-LEAD (02/23/2025 4:45 AM EDT) Only the most recent of2 resultswithin the time period is included. Systolic Blood Pressure 118 mmHg [facility] Diastolic Blood Pressure 60 mmHg [facility] Ventricular Rate EKG/MIN 65 BPM [facility] Atrial Rate 65 BPM [facility] DC Interval 174 ms [facility] QRS Duration 80 ms [facility] QT Interval 444 ms [facility] QTC Interval 461 ms [facility] P [place] 66 degrees [facility] R Wave [place] 52 degrees [facility] T Wave [place] -43 degrees [facility] 02/23/2025 4:45 AM EDT 02/27/2025 5:05 PM EDT Narrative [facility] - 02/27/2025 5:05 PM EDT LOC: EL8 DX: ARRHYTHMIA REF: SHELTONTANAMARLY NORMAL SINUS RHYTHM DIVYA PATTERN EARLY PRECORDIAL R WAVE TRANSITION DIFFUSE T WAVE ABNORMALITIES WHEN COMPARED WITH ECG OF 22-Feb-2025 06:23, NORMAL SINUS RHYTHM HAS REPLACED SINUS BRADYCARDIA , T WAVE ABNORMALITIES MORE MARKED us Marly Minor Shelton RODRIGUEZ ECG ORDERABLES Final Res ult [facility] * [...] Epic:Chest Tube Removal COMPARISON: XR CHEST PORTABLE 05:15:30.000 [...] originallycreated by Adeline Fernández. us Lavinia You CPO IMG XR CHEST Final Resu lt * Lactate (02/22/2025 7:37 AM EDT) LACTIC ACID (MMOL/L) 0.8 0.5 - 2.0 mmol/L [facility] Blood 02/22/2025 7:37 AM EDT 02/22/2025 7:45 AM EDT us Marly Peoples PA-C LAB BLOOD ORDERABLES Jeanine sim Result [facility] [address] [place] [address] * XR Chest Portable (02/22/2025 5:17 AM [...] clinician's provided indication for this examination in [facility]: Post-Op COMPARISON: XR CHEST PORTABLE ; CT [...] clinician's provided indication for this examination in [facility]:Post-Op COMPARISON: XR CHEST PORTABLE ; CT CARDIAC [...] originallycreated by Whitley Jaramillo. us Adolfo Whyte CPO IMG XR CHEST Final Result * (ABNORMAL) LFTs (hepatic panel) (02/22/2025 1:43 AM EDT) Only the most recent of4 resultswithin the time period is included. ALBUMIN 3.2(L) 3.3 - 5.0 g/dL [facility] TOTAL BILIRUBIN 0.3 0.0 - 1.0 mg/dL [facility] DIRECT BILIRUBIN 0.1 0.0 - 0.3 mg/dL [facility] ALKALINE PHOSPHATASE 72 45 - 115 U/L [facility] AST 34 10 - 40 U/L [facility] ALT 32 10 - 55 U/L [facility] TOTAL PROTEIN 6.2 6.0 - 8.3 g/dL [facility] GLOBULIN 3.0 1.9 - 4.1 g/dL [facility] Blood 02/22/2025 1:43 AM EDT 02/22/2025 1:56 AM EDT us Marly Peoples PA-C LAB BLOOD ORDERABLES Jeanine l Result [facility] [address] [place] [address] * PTT (02/22/2025 1:43 AM EDT) Only the most recent of6 resultswithin the time period is included. APTT 29.2 24.0 - 37.5 sec [facility] Comment:Check MAR for the ta rget range that is ordered for your patient. Blood 02/22/2025 1:43 AM EDT 02/22/2025 1:56 AM EDT us Marly Billsmaritza Peoples PA-C LAB BLOOD ORDERABLES Jeanine l Result [address] [address] * PT-INR (02/22/2025 1:43 AM EDT) Only the most recent of6 resultswithin the time period is included. PT 11.3 10.0 - 13.0 sec [facility] INR 1.0 0.9 - 1.1 [facility] Blood 02/22/2025 1:43 AM EDT 02/22/2025 1:56 AM EDT Marly Minor Shelton PA-C LAB BLOOD ORDERABLES Jeanine l Result Performing Organization Address [facility] Co de Phone Number [address] [address] * (ABNORMAL) Phosphorus (02/22/2025 1:43 AM EDT) Only the most recent of8 resultswithin the time period is included. PHOSPHORUS 2.3(L) 2.6 - 4.5 mg/dL [facility] Blood 02/22/2025 1:43 AM EDT 02/22/2025 1:56 AM EDT Marly Peoples PA-C LAB BLOOD ORDERABLES Jeanine l Result Performing Organization Address City/[facility] Co de Phone Number [address] [address] * Creat. Comment (02/21/2025 9:42 AM EDT) Only the most recent of5 resultswithin the time period is included. Creat Comment Increasing Creatinine Value on your Patient: The calculated GFR may thus overestimate the true GFR and should not be used to guide medication dosing. Negative [facility] 02/21/2025 9:42 AM EDT 02/21/2025 9:47 AM EDT us Marly Peoples PA-C LAB BLOOD ORDERABLES Jeanine sim Result [address] [address] * Prepare RBC (02/21/2025 12:41 AM EDT) Only the most recent of2 resultswithin the time period is included. Product Code G9525H82 02/21/2025 12:41 AM EDT [facility] Unit Number [id number] 02/22/20 12:41 AM EDT [facility] Crossmatch Interpretation Compatible 02/18/2025 12:03 PM EDT [facility] Product Status Issued, Final 025 12:41 AM EDT [facility] ABO/Rh of Unit OPOS 02/21/2025 12:41 AM EDT [facility] Expiration Date/Time 02/21/2025 12:41 AM EDT [facility] Unit Barcode 5100 02/21/2025 12:41 AM EDT [facility] Product Code [id number] 02/21/2025 12:41 AM EDT [facility] Unit Number [id number] 02/22/20 12:41 AM EDT [facility] Crossmatch Interpretation Compatible 02/18/2025 12:03 PM EDT [facility] Product Status Issued, Final 025 12:41 AM EDT [facility] ABO/Rh of Unit OPOS 02/21/2025 12:41 AM EDT [facility] Expiration Date/Time [id number] 02/21/2025 12:41 AM EDT [facility] Unit Barcode 5100 02/21/2025 12:41 AM EDT [facility] 02/05/2025 3:3 3 PM EDT us Blood Bank BLOOD BANK PRODUCT ORDERABLES Fi nal Result [facility] [address] [place] [address] * XR Chest Portable (02/20/2025 10:18 PM [...] clinician's provided indication for this examination in [facility]: Post-Op COMPARISON: XR CHEST PORTABLE 02:46:11.000 FINDINGS: [...] clinician's provided indication for this examination in [facility]:Post-Op COMPARISON: XR CHEST PORTABLE 02:46:11.000 FINDINGS: Devices/Tubes/Lines: [...] edema. Status post robotic mitral valve repair. Adolfo Whyte CPO IMG XR CHEST Final Result * (ABNORMAL) Arterial blood gas PLUS (02/20/2025 8:30 PM EDT) Only the most recent of10 resultswithin the time period is included. FIO2 2L NC FIO2/L min [facility] PH 7.37 7.35 - 7.45 [facility] PCO2 41 35 - 42 mm[Hg] [facility] PO2 118(H) 80 - 100 mm[Hg] [facility] Base Excess, unspecified NEG 0.0 - 3.0 mmol/L [facility] Comment:1.8NEG HCO3, unspecified 23(L) 24 - 30 mmol/L [facility] SODIUM 131(L) 135 - 145 mmol/L [facility] POTASSIUM 4.3 3.5 - 5.0 mmol/L [facility] IONIZED CALCIUM 1.11(L) 1.14 - 1.30 mmol/L [facility] Glucose, whole bld 139(H) 70 - 110 mg/dL [facility] HGB (BG) 9.7(L) 13.5 - 17.5 g/dl [facility] O2 Sat (SO2, arterial) 98.7 94.0 - 99.0 % [facility] Blood 02/20/2025 8:30 PM EDT 02/20/2025 8:38 PM EDT Marly Peoples PA-C LAB BLOOD ORDERABLES Jeanine l Result [facility] [address] [place] [address] * Lactate (blood gas) (02/20/2025 8:30 PM EDT) Only the most recent of19 resultswithin the time period is included. Lactate, blood 1.6 0.5 - 2.0 mmol/L [facility] Blood 02/20/2025 8:30 PM EDT 02/20/2025 8:38 PM EDT us Marly Minor Shelton LANDERS-Simon LAB BLOOD ORDERABLES Jeanine sim Result [facility] [address] [place] [address] * AMY COMP PROBE PLACED BY ANES [...] well. There were no probe complications noted. Snow Fence Erector Attestation: I have reviewed the images and [...] MD CV ECHO ORDERABLES Final Result * (ABNORMAL) Oxygen saturation, mixed venous (02/20/2025 3:59 AM EDT) Only the most recent of4 resultswithin the time period is included. SO2-MIXED (SO2, mixed bld) 58.6(L) 65.0 - 75.0 % [facility] Blood 02/20/2025 3:59 AM EDT 02/20/2025 4:09 AM EDT Marly Peoples PA-C LAB BLOOD ORDERABLES Jeanine l Result Performing Organization Address City/[facility]/ZIP Co de Phone Number [address] [address] * (ABNORMAL) POCT Glucose (02/20/2025 3:17 AM EDT) Only the most recent of2 resultswithin the time period is included. Glucose, POCT 163(H) 70 - 110 mg/dL [facility] 02/20/2025 3:17 AM EDT 02/20/2025 3:19 AM EDT Natalie Acosta MD POINT OF CARE TEST ORDERA BLES Final Result Performing Organization Address City/[facility]/ZIP Co de Phone Number [address] [address] * XR Chest Portable (02/20/2025 2:47 AM EDT) Anatomical Region Laterality Modality Chest Computed Radiogr aphy 02/20/2025 9:36 AM EDT Impressions 02/20/2025 10:08 AM EDT Increased bibasilar opacities suggestive of atelectasis and/or aspiration. Unchanged small right pleural effusion. ATTESTATION: IDr. Orlando as teaching physician, have reviewed the images [...] clinician's provided indication for this examination in Epic:Central Line; s/p cardiac surgery COMPARISON: XR CHEST [...] and/oraspiration. Unchanged small right pleural effusion. ATTESTATION: Dr. Orlando Leary as teaching physician, have reviewedthe images for this case and if necessary edited the report originallycreated by Luis Ireland. us Marly Minor Shelton LANDERS-C IMG XR CHEST Final Res ult * (ABNORMAL) Lipase (02/20/2025 1:33 AM EDT) Only the most recent of2 resultswithin the time period is included. LIPASE 83(H) 13 - 60 U/L [facility] Blood 02/20/2025 1:33 AM EDT 02/20/2025 1:39 AM EDT us Marly Minor Shelton LANDERS-C LAB BLOOD ORDERABLES Jeanine l Result [address] [address] * XR Chest Portable (02/19/2025 2:55 PM [...] clinician's provided indication for this examination in Epic:Central Line; s/p cardiac surgery COMPARISON: XR CHEST [...] thickening,extrapleural thickening, and/or small right pleural effusion. Marly Peoples PA-C IMG XR CHEST Final Res ult * MRSA Nasal Screen (02/19/2025 2:40 PM EDT) Special Requests No Special Requests 02/19/2025 2:38 PM EDT [facility] MRSA Nasal Culture NEGATIVE FOR MRSA 02/20/2025 1:35 PM EDT [facility] Other (Nasal) 02/19/2025 2:4 0 PM EDT 02/19/2025 5:08 PM EDT Marly Peoples PA-C MICROBIOLOGY - GENERAL OR DERABLES Final Result Performing Organization Address [facility] Co de Phone Number [address] [address] * Vancomycin Resistant Enterococci (VRE), Rectal Screen (02/19/2025 2:40 PM EDT) Special Requests No Special Requests 02/19/2025 2:38 PM EDT [facility] VRE Rectal Culture NEGATIVE FOR VRE 02/20/2025 3:16 PM EDT [facility] Stool (Rectal) 02/19/2025 2: 40 PM EDT 02/19/2025 5:07 PM EDT us Marly Peoples PA-C MICROBIOLOGY - GENERAL OR DERABLES Final Result Performing Organization Address [facility] Co de Phone Number [address] [address] * (ABNORMAL) Fibrinogen (02/19/2025 1:51 PM EDT) FIBRINOGEN 166(L) 200 - 400 mg/dL [facility] Blood 02/19/2025 1:51 PM EDT 02/19/2025 1:57 PM EDT us Colin METZ LAB BLOOD ORDERABLES Final Res ult Performing Organization Address [facility] Co de Phone Number [address] [address] * POCT ACT from cardiac OR (02/19/2025 1:48 PM EDT) Only the most recent of11 resultswithin the time period is included. ACT FROM CARDIAC OR 106 90 - 130 sec [facility] 02/19/2025 1:48 PM EDT 02/19/2025 1:47 PM EDT us Natalie Acosta MD POINT OF CARE TEST ORDERA BLES Final Result Performing Organization Address [facility] Co de Phone Number [address] [address] * POCT Heparin Protamine Titration (02/19/2025 1:48 PM EDT) Only the most recent of11 resultswithin the time period is included. Heparin Protamine Titration 0.0 u/ml [facility] Misc Test Ref Range 0.0-1.2 u/ml [facility] Comment (Coag) Red [facility] 02/19/2025 1:48 PM EDT 02/19/2025 1:47 PM EDT us Natalie Acosta MD POINT OF CARE TEST ORDERA BLES Final Result [facility] [address] [place] [address] * (ABNORMAL) PUMP BLOOD GAS PLUS (02/19/2025 1:03 PM EDT) Only the most recent of9 resultswithin the time period is included. FIO2/FLOW CPB FIO2/L min [facility] TEMP. 37.0 deg C [facility] PH(UNCORRECTED) 7.30 [facility] PH 7.30(L) 7.32 - 7.45 [facility] PCO2(UNCORRECTE D) 46 mm[Hg] [facility] PCO2 46 35 - 50 mm[Hg] [facility] PO2(UNCORRECTED ) 260 mm[Hg] [facility] PO2 260(H) 40 - 90 mm[Hg] [facility] Base Excess, unspecified NEG 0.0 - 3.0 mmol/L [facility] Comment:4.2NEG HCO3, unspecified 22(L) 24 - 30 mmol/L [facility] SODIUM 134(L) 135 - 145 mmol/L [facility] POTASSIUM 4.8 3.5 - 5.0 mmol/L [facility] HGB (BG) 7.8(L) 13.5 - 17.5 g/dl [facility] IONIZED CALCIUM 1.26 1.14 - 1.30 mmol/L [facility] Glucose, whole bld 161(H) 70 - 110 mg/dL [facility] SO2, unspecified 99.8 94.0 - 99.9 % [facility] Comment: SO2 Reference Range: Arterial: 94.0-99.9 Venous: 60.0-85.0 Blood 02/19/2025 1:03 PM EDT 02/19/2025 1:08 PM EDT Colin METZ LAB BLOOD ORDERABLES Final Res ult Performing Organization Address City/State/[facility] Co de Phone Number [address] [address] * RBCs (02/19/2025 12:52 PM EDT) Only the most recent of2 resultswithin the time period is included. Colin METZ NURSING TREATMENT ORDERABLES - ASSIGN Final Result * Anatomic Pathology (02/19/2025 10:09 AM EDT) 02/19/2025 10:0 9 AM EDT 02/19/2025 2:15 PM EDT Narrative SEE NARRATIVE - 02/25/2025 11:18 AM EDT [place] [id number] Surgical Pathology Report Patient Name: JOSE WINSLOW : 1975 (Age: 50) Sex: M Location: [place] [address] Institution: [facility] Date of Operation: 02/19/2025 Date of Reported: [...] thickness. No calcifications or vegetations are identified. Eyeglass Fitter sections are wrapped and are submitted in A1. Grossed by: Angela Spangler us Natalie Acosta MD PATHOLOGY ORDERABLES Jeanine l Result SEE NARRATIVE * (ABNORMAL) VENOUS BLOOD GAS PLUS (02/19/2025 8:55 AM EDT) FIO2 CPB FIO2/L min [facility] PH 7.34 7.30 - 7.40 [facility] PCO2 50 38 - 50 mm[Hg] [facility] PO2 51(H) 35 - 50 mm[Hg] [facility] Base Excess, unspecified 0.1 0.0 - 3.0 mmol/L [facility] HCO3, unspecified 26 24 - 30 mmol/L [facility] SODIUM 136 135 - 145 mmol/L [facility] POTASSIUM 4.1 3.5 - 5.0 mmol/L [facility] IONIZED CALCIUM 0.88(L) 1.14 - 1.30 mmol/L [facility] Glucose, whole bld 137(H) 70 - 110 mg/dL [facility] HGB (BG) 7.3(L) 13.5 - 17.5 g/dl [facility] SO2-VENOUS (SO2, venous) 78.8 60.0 - 85.0 % [facility] Blood 02/19/2025 8:55 AM EDT 02/19/2025 9:01 AM EDT us Colin METZ LAB BLOOD ORDERABLES Final Res ult [facility] [address] [place] [address] * DC ECHO HEART TRANSESOPH PROBE PLACEMT PERF (02/19/2025 8:29 AM EDT) Narrative Maria De Jesus Aparicio DO - 02/19/2025 8:29 AM EDT Maria De Jesus Aparicio DO 02/19/2025 8:30 AM Transesophageal Echocardiogram Procedure Note: Performed by: anesthesiologist Anesthesiologist: Colin Layne MBBS Davis Protocol performed: consent obtained, patient identified with 2 identifiers, correct procedure verified, correct site and laterality confirmed, verified equipment, coagulation status reviewed and implant history reviewed. Placement notes: probe advanced in esophagus atraumatic us Colin METZ DC ANESTHESIA Final Result * DC INSERT/PLACE FLOW DIRECT CATH PERF, ANES VENOUS SHEATH - PA LINE, ANES SINGLE LUMEN PA LINE - PALINE (02/19/2025 8:28 AM EDT) Narrative Maria De Jesus Aparicio DO - 02/19/2025 8:28 AM EDT Maria De Jesus Aparicio DO 02/19/2025 8:29 AM Pulmonary Artery Line Placement Procedure Note: Start time: 02/19/2025 8:03 AM Anesthesiologist: Colin Layne MBBS Fellow/Resident/COURTESY CLERK: Maria De Jesus Aparicio DO Performed: fellow/resident/COURTESY CLERK Davis Protocol performed: consent obtained, patient identified with 2 identifiers, correct procedure verified, correct site and laterality confirmed, verified equipment, coagulation status reviewed and implant history reviewed. . Indication: Indication: hemodynamic monitoring, vasoactive IV medications and vascular access. Central line Checklist: emergency line placement? no timeout performed? yes hand hygiene performed prior to central venous catheter insertion? yes procedure site disinfected per protocol? yes site allowed to dry for 30 seconds? yes personal protection worn? yes assistant pastry chef followed standard precautions? yes sterile technique used to drape from head to toe? yes sterile field maintained during procedure? yes guidewires and dilators removed? yes line flushed and capped before removal of drapes? yes dressing applied to site? yes break in sterile procedure? no. Technique: Technique: live ultrasound Number of Attempts: 1 Venous verification: non-pulsatile flow, wire visualized in SVC/RA by AMY, wire visualized in vein by ultrasound, pressure transducer and color comparison to arterial sample Procedure details: Location: right internal jugular Skin prep: chloraprep Central venous catheter type: introducer PA catheter type: basic Ultrasound: Ultrasound image: saved Ultrasound visualization: good Post Procedure: Post Procedure:blood removed, chlorhexidine patch applied, dressing applied and line sutured Assessment/Verification: blood return through port and free fluid flow Complications?: No Colin METZ DC ANESTHESIA Final Result * ANES ETT DOUBLE LUMEN - AIRWAY LDA (02/19/2025 7:47 AM EDT) Maria De Jesus Julio DO - 02/19/2025 7:47 AM EDT Maria De Jesus Aparicio DO 02/19/2025 8:24 AM Airway Placement Procedure Note: Patient was not difficult to intubate. Procedure performed by: fellow/resident/COURTESY CLERK Anesthesiologist: Colin Layne MBBS Fellow/Resident/COURTESY CLERK: Maria De Jesus Aparicio DO Airway procedure initiated at:02/19/2025 7:47 AM and ended at. Personal Protective Equipment: Mask: surgical mask Gloves: gloves Mask Ventilation: Quality: easy Adjunct: jaw thrust Airway Placement: Technique: direct laryngoscopy Details: Blade type: Mac Blade size: 4 Direct view: grade 1 Number of attempts: 1 ETT type: cuffed ETT size: 8.0 ETT depth at teeth: 24 Tube position confirmed by: EtCO2 Bite Block: soft Outcomes: Evidence of dental injury? no Complications observed? no us Colin METZ DC ANESTHESIA Final Result * POCT heparin dose response (02/19/2025 7:45 AM EDT) ACT FROM CARDIAC OR 127 90 - 130 sec [facility] Projected heparin concentration 3.0 u/ml [facility] Heparin dose response 109 50 - 120 sec [facility] 02/19/2025 7:45 AM EDT 02/19/2025 7:51 AM EDT Natalie Acosta MD POINT OF CARE TEST ORDERA BLES Final Result Performing Organization Address City/State/[facility] Co de Phone Number [address] [address] * DC INSERT CATH ART PERCUT SHORTTERM PERF (02/19/2025 7:26 AM EDT) Narrative Maria De Jesus Aparicio DO - 02/19/2025 7:26 AM EDT Maria De Jesus Aparicio DO 02/19/2025 7:26 AM Arterial Line Placement Procedure Note: Location: pre-op Procedure performed by: fellow/resident/COURTESY CLERK Anesthesiologist: Colin Layne MBBS Fellow/Resident/COURTESY CLERK: Maria De Jesus Aparicio DO Indication(s): hemodynamic monitoring, arterial blood gas and frequent labs Davis Protocol performed: consent obtained, patient identified with 2 identifiers, correct procedure verified, correct site and laterality confirmed, verified equipment, coagulation status reviewed and implant history reviewed. Procedure details: Skin prep: chlorhexidine gluconate Skin prep agent completely dried prior to procedure. Insertion site scrubbed for 30 seconds. Sterile barriers: hands washed and sterile gloves used Laterality: left Location: radial artery Catheter type: angio Catheter size: 20 G Technique: Technique: ultrasound guidance and Seldinger technique Number of attempts: 1 Ultrasound: Ultrasound visualization: good Post Procedure: Post procedure: dressing applied Complications: none Patient tolerance: patient tolerated the procedure well with no immediate complications Transducer type: regular Colin METZ DC ANESTHESIA Final Result * ANESTHESIA POINT OF CARE IMAGE CAPTURE (02/19/2025 6:36 AM EDT) Anatomical Region Laterality Modality Ultrasound Narrative 02/19/2025 6:36 AM EDT Maria De Jesus Aparicio DO 02/19/2025 6:36 AM Anesthesia Point of Care Image Capture Performed by: Maria De Jesus Aparicio DO Authorized by: Colin Layne MBBS Accession Number: [id number] Colin METZ IMG POINT OF CARE EXAMS Final Result * Outside Lab (02/14/2025 3:14 PM EDT) Historical Provider MD LAB BLOOD ORDERABLES Jeanine l Result * XR CHEST PA AND LATERAL 2 [...] clinician's provided indication for this examination in [facility]:Dyspnea on exertion; preoperative evaluation COMPARISON: CT CARDIAC [...] originallycreated by Keith Eisenberg. Renetta Stevens CNP IMG XR CHEST Final Res ult * (ABNORMAL) MRSA/MSSA PRE-OP PCR (02/05/2025 2:11 PM EDT) [facility] MRSA PCR SCREEN NEGATIVE FOR MRSA (Methicillin Resistant S.aureus) NEGATIVE FOR MRSA (Methicillin Resistant S.aureus) [facility] MSSA PCR SCREEN POSITIVE FOR MSSA (Methicillin Susceptible S.aureus)(A) NEGATIVE FOR MSSA (Methicillin Susceptible S.aureus) [facility] Comment:This test was conduc jacque as part of Pre-Operative Screening for Staphylococcus aureus. Please direct any questions regarding this result to the Ordering Provider. Nasal (Nasal) 02/05/2025 2:1 1 PM EDT 02/05/2025 5:14 PM EDT Renetta Stevens CNP NON CULTURE MICROBIOLOGY Final Result [facility] [address] [place] [address] * (ABNORMAL) Comprehensive metabolic panel (02/05/2025 2:11 PM EDT) SODIUM 140 135 - 145 mmol/L [facility] POTASSIUM 4.2 3.4 - 5.0 mmol/L [facility] CHLORIDE 102 98 - 108 mmol/L [facility] CO2 26 23 - 32 mmol/L [facility] BUN 12 8 - 25 mg/dL [facility] CREATININE 1.31(H) 0.60 - 1.30 mg/dL [facility] GLUCOSE 97 70 - 110 mg/dL [facility] ALBUMIN 4.2 3.3 - 5.0 g/dL [facility] TOTAL PROTEIN 7.3 6.0 - 8.3 g/dL [facility] CALCIUM 9.1 8.5 - 10.5 mg/dL [facility] ALKALINE PHOSPHATASE 129(H) 45 - 115 U/L [facility] TOTAL BILIRUBIN 0.3 0.0 - 1.0 mg/dL [facility] AST 27 10 - 40 U/L [facility] ALT 21 10 - 55 U/L [facility] GLOBULIN 3.1 1.9 - 4.1 g/dL [facility] EGFR 66 >59 mL/min/1. 73m2 [facility] Comment:Estimated glomerular filtration rate calculated using the CKD-EPI refit equation. ANION GAP 12 3 - 17 mmol/L [facility] 02/05/2025 2:11 PM EDT 02/05/2025 7:10 PM EDT Renetta Stevens MONOGRAM OPERATOR LAB BLOOD [place] [address] * ABO and Rh (02/05/2025 2:11 PM EDT) Expiration Date of Sample 02/22/2025 11:59 PM [facility] ABO O 02/21/2025 12:00 PM EDT [facility] Rh Positive 02/21/2025 12:00 PM EDT [facility] Comment:Patient Transfused, specimen exp. date updated Resulting Agency [facility] 02/05/2025 2:11 PM EDT 02/05/2025 3:33 PM EDT us Blood Bank BLOOD BANK TEST ORDERABLES Final Result [facility] [address] [place] [address] * (ABNORMAL) CBC and differential (02/05/2025 2:11 PM EDT) WBC 5.50 4.00 - 11.00 K/uL [facility] RBC 3.80(L) 4.50 - 5.90 M/uL [facility] HGB 9.4(L) 13.5 - 17.5 g/dL [facility] HCT 32.2(L) 41.0 - 53.0 % [facility] PLT 259 150 - 450 K/uL [facility] MCV 84.7 80.0 - 100.0 fL [facility] MCH 24.7(L) 27.0 - 31.0 pg [facility] MCHC 29.2(L) 32.0 - 36.0 g/dL [facility] RDW 21.8(H) 11.5 - 14.5 % [facility] MPV 10.3 8.4 - 12.0 fL [facility] NRBC 0.00 0.00 /100 WBCs [facility] ABSOLUTE NRBC 0.00 0.00 K/uL [facility] DIFF METHOD Auto [facility] NEUTS 55.0 48.0 - 76.0 % [facility] LYMPHS 28.7 18.0 - 41.0 % [facility] MONOS 10.5 4.0 - 11.0 % [facility] EOS 3.1 0.0 - 5.0 % [facility] BASOS 1.8(H) 0.0 - 1.5 % [facility] % IMMATURE GRANS 0.9 0.0 - 0.9 % [facility] ABSOLUTE NEUTS 3.02 1.92 - 7.60 K/uL [facility] ABSOLUTE LYMPHS 1.58 0.72 - 4.10 K/uL [facility] ABSOLUTE MONOS 0.58 0.16 - 1.10 K/uL [facility] ABSOLUTE EOS 0.17 0.00 - 0.50 K/uL [facility] ABSOLUTE BASOS 0.10 0.00 - 0.15 K/uL [facility] ABS IMMATURE GRANS 0.05 0.00 - 0.09 K/uL [facility] Blood 02/05/2025 2:11 PM EDT 02/05/2025 7:13 PM EDT Renetta Stevens MONOGRAM OPERATOR LAB BLOOD ORDERABLES Jeanine l Result [facility] [address] [place] [address] * Hemoglobin A1c (02/05/2025 2:11 PM EDT) HEMOGLOBIN A1C 5.0 4.3 - 5.6 % [facility] Comment:HbA1c levels 5.7-6.4 % represent pre-diabetes, indicating impaired glucose control and an increased risk of developing diabetes compared with lower HbA1c levels. The diagnostic HbA1c level for diabetes is 6.5% or greater. CALC MEAN BLD GLUC 97 mg/dL [facility] Comment:There is no establis [facility] normal range for the Calculated Mean Blood Glucose (CMBG), however a HbA1c of 5.6% (upper limit of normal) represents a CMBG of 114 mg/dL. The diagnostic hemoglobin A1c level for diabetes is greater than or equal to 6.5% which represents a CMBG greater than or equal to 140 mg/dL. 02/05/2025 2:11 PM EDT 02/05/2025 6:53 PM EDT Renetta Stevens MONOGRAM OPERATOR LAB BLOOD ORDERABLES Jeanine l Result Performing Organization Address [facility] Co de Phone Number [facility] [address] [place] [address] from Last 3 Months Insurance [facility] OUT OF STATE PPO BLUE [place] OUT OF [facility] PPO [place] OUT OF STATE PPO [place] OUT OF STATE PPO [place] OUT OF STATE PPO Advance Directives For more information, please contact: [phone] (9AM - 5PM [place]/[facility], Tuesday-Tuesday) Documents on File Type Date Recorded Patient Eyeglass Fitter Expl anation Healthcare Proxy 02/06/2025 9:14 AM * Full Code (Latest Code Status on File) Date Activated Date Inactivated Comments 02/19/2025 2:37 PM Question Answer Comments Code Status Confirmed With: Patient Code Discussion Comments: Ofelia-op team discussed Care Teams Postal Service Clerk Relationship Specialty Start Date End Date Faye Avelar MD 1962 [facility] [place] [address] PCP - General Internal Medicine 09/19/23 Shagufta Bhakta MD, PhD [address] [place] [address] [address] [place] [address] [email or web address] Snow Fence Erector Interventional Cardiology 10/11/23 Waqas Diaz MD [address] [place] [address] Drive [address] [place] [address] Gastroenterology 02/14/25 Additional Source Comments The information contained in this document represents components of the legal health record. It is not the complete legal health record.[facility]
--- OUTSIDE RECORDS SUMMARY | 2025-03-01 10:36 | XMS_ITS | Encounter Summary ---
Author Organization [facility] Address [address] [place] [address] Phone Care Team Providers Care Double End Tenoner Operator Name Role Phone Faye Avelar MD Primary Care Provider Shagufta Bhakta MD, PhD Unavailable [phone] Waqas Diaz MD Unavailable [phone] Encounter Details Date Type Department Care Team (Late st Contact Info) Description 02/28/2025 Telephone [facility] Division of Cardiac Surgery [address] [facility], 6th Floor, [address] [place] [address] Panchito Stark, APPELLATE COURT JUDGE [address] [facility] [address] [place] [address] [email or web address] Social History Tobacco Use Types Packs/Day Years [...] PM EDT documented as of this encounter Progress Notes * Panchito Stark CNP - 02/28/2025 2:37 PM EDT 02/28/25 Brief Cardiac Surgery Update Rodo Herrera is s/p robotic mitral valve repair (32mm Physio 1 Ring) on 02/19/[address] Acosta. They were discharged on 02/26/2025. Interval: Patient had drainage from his chest tube site 02/27/2025. Patient says it was serous in nature. He spoke with occupational therapy supervisor provider and was told to monitor the site for 24 hours and it should stop draining. Patient called to inform us that the site has stopped draining, and asked if it is normal for the incision site to feel tight initially after surgery. I informed the patient this is very normal for post op patients. Patient denies fever and says he feels pretty good. Plan: - Patient will continue to monitor the chest tube site. Yanick Satrk CNP documented in this encounter Plan of Treatment Upcoming Encounters Date Type Department Care Team (Late st Contact Info) Description 04/03/2025 11:30 AM EST Office Visit [facility] Division of Cardiac Surgery [address] [place] [address], 6th Floor, [address] [place] [address] Natalie Acosta MD [address] [place] [address] [email or web address] 04/03/2025 1:30 PM EST Office Visit [facility] [address] [facility], 5th Floor, [address] [place] [address] Shagufta Bhakta MD, PhD [address] [place] [address] [email or web address] documented as of this encounter Visit Diagnoses Not on filedocumented in this encounter Care Teams Double End Tenoner Operator Relationship Specialty Start Date End Date Faye Avelar MD [facility] [place] [address] PCP - General Internal Medicine 09/19/23 Shagufta Bhakta MD, PhD [address] [facility] [address] [place] [address] [email or web address] Insulation Blower Interventional Cardiology 10/11/23 Waqas Diaz MD [address] [place] [address] [address] [place] [address] Gastroenterology 02/14/25 documented as of this encounter Additional Source Comments The information contained in this document represents components of the legal health record. It is not the complete legal health record.[facility]
--- OUTSIDE RECORDS SUMMARY | 2025-03-01 10:36 | XMS_ITS | Encounter Summary ---
Author Organization [facility] Address [address] [facility] [address] [place] [address] Phone Care Team Providers Care Business Law Teacher Name Role Phone Faye Avelar MD Primary Care Provider Shagufta Bhakta MD, PhD Unavailable [phone] Waqas Diaz MD Unavailable [phone] Encounter Details Date Type Department Care Team (Late st Contact Info) Description 02/05/2025 Orders Only [facility] EKG LAB VIRTUAL DEPARTMENT [address] [place] [address] [id number] Jovana Luis [address] [place] [phone] [email or web address] Preop testing Social History Tobacco Use Types [...] Description 04/03/2025 11:30 AM EST Office Visit [facility] Division of Cardiac Surgery [address] [facility], 6th Floor, [address] [place] [address] Natalie Acosta MD [address] [facility] [address] [place] [address] [email or web address] 04/03/2025 1:30 PM EST Office Visit [facility] [address] [facility], 5th Floor, [address] [place] [address] Shagufta Bhakta MD, PhD [address] [facility] [address] [place] [address] [email or web address] documented as of this encounter Procedures Procedure Name Priority Date/Time Associated Diagnosis Comments ECG 12-LEAD Routine 02/05/2025 2:28 PM EDT Preop testing documented in this encounter Results * ECG 12-LEAD (02/05/2025 2:28 PM EDT) Systolic Blood Pressure [facility] Diastolic Blood Pressure [facility] Ventricular Rate EKG/MIN 47 BPM [facility] Atrial Rate 47 BPM [facility] SD Interval 132 ms [facility] QRS Duration 84 ms [facility] QT Interval 496 ms [facility] QTC Interval 438 ms [facility] P Petal 16 degrees [facility] R Wave Petal 19 degrees [facility] T Wave Petal 3 degrees [facility] 02/05/2025 2:28 PM EDT 02/07/2025 10:50 AM EDT Narrative [facility] - 02/07/2025 10:50 AM EDT LOC: MANUEL 6 - CARDIAC SURG DX: PRE-OP REF: RENETTA STEVENS - POCKET BUILDER SINUS BRADYCARDIA NONSPECIFIC ST SEGMENT AND T WAVE ABNORMALITIES WHEN COMPARED WITH ECG OF 22-Sep-2023 11:01, ,,, THE HEART RATE HAS SLOWED BY 13 BPM. SUGGEST CLINICAL CORRELATION Electronically Signed in [employer] system. Confirmed by Pipe SHERWOOD RAlessio ([id number]) on 02/07/2025 10:50:43 AM us Renetta Stevens CNP ECG ORDERABLES Final Res ult [facility] documented in this encounter Visit Diagnoses Diagnosis Preop testing Unspecified pre-operative examination documented in this encounter Care Teams Business Law Teacher Relationship Specialty Start Date End Date Faye Avelar MD [address] [facility] [place] [address] PCP - General Internal Medicine 09/19/23 Shagufta Bhakta MD, PhD [address] [place] [address] [address] [place] [address] [email or web address] Scribe Interventional Cardiology 10/11/23 Waqas Diaz MD [address] [place] [address] Drive [address] [place] [address] Gastroenterology 02/14/25 documented as of this encounter Additional Source Comments The information contained in this document represents components of the legal health record. It is not the complete legal health record.[facility]
--- OUTSIDE RECORDS SUMMARY | 2025-03-01 10:36 | XMS_ITS | Encounter Summary ---
Author Organization [facility] Address [address] [facility] [address] [facility] [address] [place] [address] Phone Care Team Providers Care Sales Director Name Role Phone Faye Avelar MD Primary Care Provider Shagufta Bhakta MD, PhD Unavailable [phone] Waqas Diaz MD Unavailable [phone] Encounter Details Date Type Department Care Team (Late st Contact Info) Description 10/13/2023 Procedure Pass [facility] CT, [address] [facility], 2nd Floor, [address] [place] [address] Social History Tobacco Use Types Packs/Day Years [...] Description 04/03/2025 11:30 AM EST Office Visit [facility] Division of Cardiac Surgery [address] [facility], 6th Floor, [address] [place] [address] Natalie Acosta MD [address] [place] [address] [place] [address] [email or web address] 04/03/2025 1:30 PM EST Office Visit [facility] [address] [facility], 5th Floor, [address] [place] [address] Shagufta Bhakta MD, PhD [address] [facility] [address] [place] [address] [email or web address] documented as of this encounter Visit Diagnoses Not on filedocumented in this encounter Care Teams Sales Director Relationship Specialty Start Date End Date Faye Avelar MD [address] [facility] [place] [address] PCP - General Internal Medicine 09/19/23 Shagufta Bhakta MD, PhD [address] [facility] [address] [place] [address] [email or web address] Bilingual Legal Assistant Interventional Cardiology 10/11/23 Waqas Diaz MD [address] [place] [address] Drive [address] [place] [address] Gastroenterology 02/14/25 documented as of this encounter Additional Source Comments The information contained in this document represents components of the legal health record. It is not the complete legal health record.[facility]
--- OUTSIDE RECORDS SUMMARY | 2025-03-01 10:36 | XMS_ITS | Encounter Summary ---
Author Organization [facility] Address [address] [facility] [address] [place] [address] Phone Care Team Providers Care Physician/Allergy/Immunology Name Role Phone Faye Avelar MD Primary Care Provider [phone] Shagufta Bhakta MD, PhD Unavailable [phone] Waqas Diaz MD Unavailable [phone] Encounter Details Date Type Department Care Team (Late st Contact Info) Description 02/19/2025 Procedure Pass [facility] Cardiac US [address] [place] [address] Social History Tobacco Use Types Packs/Day Years [...] 6:00 PM EDT John Mohamud RN * [place] Suicide Severity Rating Scale (Screener/Recent Self-Report) Question [...] Description 04/03/2025 11:30 AM EST Office Visit [facility] Division of Cardiac Surgery [address] [facility], 6th Floor, [address] [place] [address] Natalie Acosta MD 55 [facility] [address] [place] [address] [email or web address] 04/03/2025 1:30 PM EST Office Visit [facility] [address] [facility], 5th Floor, [address] [place] [address] Shagufta Bhakta MD, PhD [address] [facility] [address] [place] [address] DIANA@[email or web address] documented as of this encounter Visit Diagnoses Not on filedocumented in this encounter Care Teams Physician/Allergy/Immunology Relationship Specialty Start Date End Date Faye Avelar MD [address] [facility] [place] [address] PCP - General Internal Medicine 09/19/23 Shagufta Bhakta MD, PhD [address] [place] [address] [address] [place] [address] [email or web address] Distribution Collection Operator Interventional Cardiology 10/11/23 Waqas Diaz MD [address] [place] [address] [place] [address] Gastroenterology 02/14/25 documented as of this encounter Additional Source Comments The information contained in this document represents components of the legal health record. It is not the complete legal health record.[facility]
--- OUTSIDE RECORDS SUMMARY | 2025-03-01 10:37 | XMS_ITS | Encounter Summary ---
Author Organization [facility] Address [address] [facility] [address] [place] [address] Phone Care Team Providers Care Automation Driver Name Role Phone Faye Avelar MD Primary Care Provider Shagufta Bhakta MD, PhD Unavailable [phone] Waqas Diaz MD Unavailable [phone] Encounter Details Date Type Department Care Team (Late st Contact Info) Description 09/22/2023 Procedure Pass [facility] Cardiac US [address] [place] [address] Social History Tobacco Use Types Packs/Day Years [...] Description 04/03/2025 11:30 AM EST Office Visit [facility] Division of Cardiac Surgery [address] [facility], 6th Floor, [address] [place] [address] Natalie Acosta MD [address] [place] [address] [place] [address] [email or web address] 04/03/2025 1:30 PM EST Office Visit [facility] [address] [facility], 5th Floor, [address] [place] [address] Shagufta Bhakta MD, PhD [facility] [address] [place] [address] [email or web address] documented as of this encounter Visit Diagnoses Not on filedocumented in this encounter Care Teams Automation Driver Relationship Specialty Start Date End Date Faye Avelar MD [address] [facility] [place] [address] PCP - General Internal Medicine 09/19/23 Shagufta Bhakta MD, PhD 55 [facility] [address] [place] [address] [email or web address] Graphic Manager Interventional Cardiology 10/11/23 Waqas Diaz MD [address] [place] [address] Gastroenterology 02/14/25 documented as of this encounter Additional Source Comments The information contained in this document represents components of the legal health record. It is not the complete legal health record.[facility]
--- OUTSIDE RECORDS SUMMARY | 2025-03-01 10:37 | XMS_ITS | Patient Health Record ---
Author Organization [facility] Address [address] [place] [address] Care Team Providers Care Sales Expert Home Theater Name Role Phone Valentino HATCH, [facility] Primary Care Provider Waqas Cash [phone] Allergies No Known Allergies Results Component Value Reference Range Notes Ferritin Reviewed date:02/14/2025 12:29:57 PM Interpretation: Performing Lab:[facility], [address] [place] [phone] Notes/Report: Ferritin 89 20-250 ng/mL Complete Blood Count Auto Di ff (Not yet reviewed by provider) Interpretation: Performing Lab:[facility], [address] [place] [phone] Notes/Report: White Blood Count 5.5 4.8-10.8 X10*3/uL [...] te Reviewed date:07/13/2024 07:08:00 PM Interpretation: Performing Lab:[address] [address] Notes/Report: Erythrocyte Sedimentation Rate 27 0-15 MM/HR Patients with polycythemia and many hemoglobin abnormalities may have depressed sed rates whereas patients with anemia may have elevated sed rates. Liver Panel Reviewed date:07/13/2024 07:07:38 PM Interpretation: Performing Lab:[address] [phone] Notes/Report: Bilirubin Total 0.4 0.0-1.0 mg/dL Bilirubin Direct 0.1 0.0-0.5 mg/dL Aspartate Amino Transferase 23 5-37 U/L Alanine Aminotransferase 17 0-40 U/L Total Protein 7.1 6.5-8.0 g/dL Albumin Level 3.8 3.5-5.0 g/dL Alkaline Phosphatase 119 39-117 U/L Basic Metabolic Panel Reviewed date:07/13/2024 07:07:22 PM Interpretation: Performing Lab:[address] [address] Notes/Report: Sodium 139 135-145 mmol/L Potassium 4.1 [...] Protein Reviewed date:07/13/2024 07:07:50 PM Interpretation: Performing Lab:[address] [phone] Notes/Report: C Reactive Protein 0.24 < or = 0.50 mg/dL Folate Reviewed date:07/20/2024 05:23:21 PM Interpretation: Performing Lab:[address] [address] Notes/Report: Folate 12.6 > or = 4.0 ng/mL Reference Values: > or = 4.0 ng/mL < 4.0 ng/mL suggests folate deficiency Methotrexate, aminopterin and folinic acid (leucovorin) are chemotherapeutic agents whose molecular structures are similar to folate; therefore, the Table Assembler Metal folate assay cannot be used for patients using these drugs. Leukocytes Stool Qualitative Reviewed date:07/24/2024 12:40:57 PM Interpretation: Performing Lab:[address] [address] Notes/Report: Leukocytes Stool Qualitative NEGATIVE NEGATIVE Calprotectin, Fecal Reviewed date:07/29/2024 04:12:47 PM Interpretation: Performing Lab:[address] [address] Notes/Report: Calprotectin, Fecal 390 Reference Range: <50 [...] borderline values. THIS TEST WAS PERFORMED AT: [employer] [address] [place] [address] BENNIE BEDOLLA MD,PHD,XIOMARA CDiff Gene PCR Reviewed date:07/29/2024 04:12:58 PM Interpretation: Performing Lab:[facility], [address] [place] [phone] Notes/Report: CDiff Gene PCR NEGATIVE Negative If C. difficile strongly suspected despite one negative test, a second test may be sent vs. empiric treatment for C. difficile infection. GI PANEL Reviewed date:07/24/2024 12:40:48 PM Interpretation: Performing Lab:[facility], [address] [place] [phone] Notes/Report: Campylobacter Not Detected Not Detect. Plesiomonas [...] is performed by Multiplexed PCR, utilizing the Ahalogy Array. Complete Blood Count Auto Di ff Reviewed date:08/19/2024 09:34:23 PM Interpretation: Performing Lab:[facility], [address] [place] [phone] Notes/Report: White Blood Count 5.4 4.8-10.8 X10*3/uL [...] te Reviewed date:08/10/2024 06:09:31 PM Interpretation: Performing Lab:[address] [address] Notes/Report: Erythrocyte Sedimentation Rate 38 0-15 MM/HR Patients with polycythemia and many hemoglobin abnormalities may have depressed sed rates whereas patients with anemia may have elevated sed rates. Liver Panel Reviewed date:08/10/2024 06:09:21 PM Interpretation: Performing Lab:[address] [address] Notes/Report: Bilirubin Total 0.3 0.0-1.0 mg/dL Bilirubin Direct 0.1 0.0-0.5 mg/dL Aspartate Amino Transferase 19 5-37 U/L Alanine Aminotransferase 17 0-40 U/L Total Protein 7.3 6.5-8.0 g/dL Albumin Level 3.8 3.5-5.0 g/dL Alkaline Phosphatase 105 39-117 U/L Basic Metabolic Panel Reviewed date:08/10/2024 06:09:03 PM Interpretation: Performing Lab:[address] [address] Notes/Report: Sodium 139 135-145 mmol/L Potassium 4.1 [...] PROFILE Reviewed date:08/10/2024 06:08:36 PM Interpretation: Performing Lab:[address] [address] Notes/Report: Iron 12 45-160 mcg/dL Total Iron Binding Capacity 467 228-428 mcg/dL Percent Iron Saturation 3 15-50 % Unsaturated Iron Binding 455 Ferritin Reviewed date:08/10/2024 06:08:18 PM Interpretation: Performing Lab:[address] [place] [address] Notes/Report: Ferritin 7 20-250 ng/mL C Reactive Protein Reviewed date:08/10/2024 06:08:07 PM Interpretation: Performing Lab:[facility], [address] [place] [phone] Notes/Report: C Reactive Protein 0.28 < or = 0.50 mg/dL Vitamin B12 Reviewed date:08/10/2024 04:20:38 PM Interpretation: Performing Lab:[facility], [address] [place] [phone] Notes/Report: Vitamin B12 802 200-900 pg/mL NORMAL 200-900 PG/ML INDETERMINATE 160-199 PG/ML DEFICIENT < 160 PG/ML Pathology Reviewed date:08/30/2024 06:32:21 PM Interpretation: Performing Lab:[facility], [address] [place] [phone] Notes/Report: Complete Blood Count Auto Di ff Reviewed date:02/25/2025 11:44:52 PM Interpretation: Performing Lab:[facility], [address] [place] [phone] Notes/Report: White Blood Count 6.5 4.8-10.8 X10*3/uL [...] PROFILE Reviewed date:09/24/2024 11:13:18 PM Interpretation: Performing Lab:[facility], [address] [place] [phone] Notes/Report: Iron 36 45-160 mcg/dL Total Iron Binding Capacity 424 228-428 mcg/dL Percent Iron Saturation 8 15-50 % Unsaturated Iron Binding 388 Ferritin Reviewed date:09/22/2024 10:10:47 PM Interpretation: Performing Lab:[facility], [address] [place] [phone] Notes/Report: Ferritin 28 20-250 ng/mL Complete Blood Count Auto Di ff Reviewed date:02/25/2025 11:44:38 PM Interpretation: Performing Lab:[facility], [address] [place] [phone] Notes/Report: White Blood Count 5.4 4.8-10.8 X10*3/uL [...] 0.0-0.012 X10*3/uL Erythrocyte Sedimentation Ra te Reviewed date:02/16/2025 09:16:23 PM Interpretation: Performing Lab:[address] [address] Notes/Report: Erythrocyte Sedimentation Rate 10 0-15 MM/HR Patients with polycythemia and many hemoglobin abnormalities may have depressed sed rates whereas patients with anemia may have elevated sed rates. Liver Panel Reviewed date:02/16/2025 09:16:12 PM Interpretation: Performing Lab:[address] [address] Notes/Report: Bilirubin Total 0.4 0.0-1.0 mg/dL Bilirubin Direct 0.1 0.0-0.5 mg/dL Aspartate Amino Transferase 35 5-37 U/L Alanine Aminotransferase 36 0-40 U/L Total Protein 7.2 6.5-8.0 g/dL Albumin Level 4.1 3.5-5.0 g/dL Alkaline Phosphatase 129 39-117 U/L Basic Metabolic Panel Reviewed date:02/16/2025 09:15:49 PM Interpretation: Performing Lab:[address] [address] Notes/Report: Sodium 141 135-145 mmol/L Potassium 4.4 [...] Calcium 8.8 8.4-10.2 mg/dL IRON PROFILE Reviewed date:02/25/2025 11:44:25 PM Interpretation: Performing Lab:[facility], [address] [place] [phone] Notes/Report: Iron 33 45-160 mcg/dL Total Iron Binding Capacity 399 228-428 mcg/dL Percent Iron Saturation 8 15-50 % Unsaturated Iron Binding 366 C Reactive Protein Reviewed date:02/16/2025 09:15:00 PM Interpretation: Performing Lab:[facility], [address] [place] [phone] Notes/Report: C Reactive Protein 0.12 < or = 0.50 mg/dL Reason For Referral No Information Medications Medication SIG (Take, Route, Frequency, Duration) Notes Start Date End Date Status Amoxicillin 500 MG 2 Orally Twice a day; Duration: 10 days 08/30/2024 Active Clarithromycin 500 MG 1 tablet Orally Twice a day; Duration: 10 days 08/30/2024 Active Omeprazole 20 MG 1 Orally Twice a day; Duration: 10 days 08/30/2024 Active Omeprazole 20 MG 1 every morning Orally Once a day; Duration: 30 days Please tell him to start [...] to prevent the diarrhea in the first place.; Duration: 30 days 07/08/2024 Not-Taking Vitamin B 12 250 MCG 2 lozenges Orally Once a day; Duration: 30 day(s) Active Iron (Ferrous Sulfate) 325 (65 Fe) MG 1 tablet Orally twice a day Active Valsartan 40 MG TAKE 1 TABLET BY MOUTH EVERY DAY Oral; Duration: 30 Active Omeprazole 40 MG TAKE 1 CAPSULE BY MOUTH EVERY DAY; Duration: 90 Active Vitamin D 50 MCG (1999 UT) 1 tablet Orally Once a day Active Folic Acid 1 MG 1 tablet Orally Once a day 12/05/2023 Active Atenolol 25 MG 1 tablet Orally Once a day; Duration: 30 day(s) 11/30/2023 Active Immunizations Vaccine Route [...] W/U Status Risk Notes Problem Rectal bleeding (61939219) Rectal bleeding (K62.5) Active confirmed Problem History of adenomatous polyp of colon (462908375) History of adenomatous polyp of colon (Z86.010) Active confirmed Problem Constipation (16186457) Constipation (K59.00) Active confirmed Problem Diarrhea (09996896) Diarrhea (R19.7) Active con firmed Problem Imaging of gastrointestinal tract abnormal (790329926) Abnormal findings on diagnostic imaging of other parts of digestive tract (R93.3) Active confirmed Problem Helicobacter pylori (94361271) Helicobacter pylori [H. pylori] as the cause of diseases classified elsewhere (B96.81) Active confirmed Problem Diverticular disease of colon (359930670) Diverticulosis of large intestine without perforation or abscess without bleeding (K57.30) Active confirmed Problem Abnormal weight loss (234166093) Abnormal weight loss (R63.4) Active confirmed Problem Duodenitis (64286638) Duodenitis (K29.80) Active confirmed Problem Hemorrhage of rectum and anus (773812711) Rectal bleed (K62.5) Active confirmed Problem Anemia (418279624) Anemia (D64.9) Active confir med Problem Iron deficiency anemia due to chronic blood loss (442880193) 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) Active confirmed Problem Peptic ulcer disease (60282647) Peptic ulcer disease (K27.9) Active confirmed Problem Chronic gastric ulcer (62949510) Chronic gastric ulcer (K25.7) Active confirmed Problem Chronic diarrhea (368122973) Chronic diarrhea (K52.9) Active confirmed Problem Gastric ulcer (716022340) Gastric ulcer (K25.9) Active confirmed Problem Duodenal ulcer disease (81104690) Duodenal ulcer disease (K26.9) Active confirmed Problem Weight decreased (921578027) Loss of weight (R63.4) Active confirmed Problem Gastroesophageal reflux disease with esophagitis (disorder) (425768584) Gastroesophageal reflux disease with esophagitis without hemorrhage (K21.00) Active confirmed Vital Signs Blood pressure diastolic 111 mm Hg 08/30/2024 Height 71 in 08/30/2024 Blood pressure systolic 111 mm Hg 08/30/2024 Weight 174 lbs 08/30/2024 BMI 24.27 kg/m2 08/30/2024 Procedures Procedure Date Ordered Date Performed Result Body Sit e UPPER GI ENDOSCOPY 07/24/2024 N/A COLONOSCOPY 07/24/2024 N/A Encounters Encounter Location Date Provider Diagnosis [facility] Outpatient [address] [place] [id number] 08/23/2024 Waqas Diaz Rectal bleed K62.5 ; 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 ; Diverticulosis of large intestine without perforation or abscess without bleeding K57.30 ; Other hemorrhoids K64.8 ; Hiatal hernia K44.9 and Gastro-esophageal reflux disease without esophagitis K21.9 [facility] [address] [place] [phone] 03/01/2024 Waqas Diaz Diarrhea R19.7 ; Chronic gastric ulcer K25.7 ; Helicobacter pylori [H. pylori] as the cause of diseases classified elsewhere B96.81 and History of adenomatous polyp of colon Z86.010 [facility] [address] [place] [phone] 08/30/2024 Waqas Diaz Rectal bleed K62.5 ; Iron deficiency anemia due to chronic blood loss D50.0 ; Abnormal weight loss R63.4 ; Gastric ulcer K25.9 and Constipation K59.00 [facility] [address] [place] [phone] 02/11/2025 Waqas Diaz Rectal bleeding K62. 5 [facility] [address] [place] [phone] 06/21/2024 Waqas Diaz Diarrhea R19.7 ; Rec keeley bleeding K62.5 and Folate deficiency E53.8 [facility] [address] [place] [phone] 07/04/2024 Waqas Emily [facility] [address] [place] [phone] 07/24/2024 Waqas Diaz Diarrhea R19.7 ; Rec keeley bleeding K62.5 ; Anemia D64.9 and Peptic ulcer disease K27.9 [facility] [address] [place] [phone] 08/21/2024 Waqas Diaz [facility] [address] [place] [phone] 08/30/2024 Waqas Diaz [facility] [address] [place] [phone] 09/02/2024 Waqas Diaz [facility] [address] [place] [phone] 11/12/2024 Waqas Diaz Assessments Encounter Date Diagnosis [...] week treatmernt then stay on omeporazole 20mg joint terminal attack controller for now. Overall, Heath currently appears quite [...] 07/24/2024 COLONOSCOPY 07/24/2024 CHEM 7 PROFILE 07/24/2024 CHEM 7 PROFILE 11/30/2023 CHEM 7 PROFILE 06/21/2024 CHEM 7 PROFILE 02/11/2025 CHEM 7 PROFILE 12/20/2023 LIVER PROFILE 11/30/2023 LIVER PROFILE 06/21/2024 LIVER PROFILE 02/11/2025 IRON + IBC (FE) 08/30/2024 IRON + IBC (FE) 02/11/2025 IRON + IBC (FE) 11/30/2023 CRP 07/24/2024 CRP 02/11/2025 CRP 06/21/2024 CRP 11/30/2023 VITAMIN B12 AND FOLATE 11/30/2023 CBC w DIFF 06/21/2024 CBC w DIFF 08/30/2024 CBC w DIFF 11/30/2023 CBC w DIFF 07/24/2024 CBC w DIFF 02/11/2025 SED RATE (ESR) 06/21/2024 SED RATE (ESR) 11/30/2023 SED RATE (ESR) 07/24/2024 SED RATE (ESR) 02/11/2025 STOOL WBC 12/20/2023 CELIAC PANEL #10 11/30/2023 CT ABD & PELVIS WITH CONTRAST 12/20/2023 STOOL WBC 06/21/2024 C DIFFICILE RFLX PCR 12/20/2023 C DIFFICILE RFLX PCR 06/21/2024 Complete Blood Count Auto Diff Ferritin 08/30/2024 [...] Name:Waqas Diaz , 03/05/2025 10:20:00 AM, [address] [facility], [address], [place], [address], Insurance Providers Payer Name Payer Address Payer Phone Subscriber Number Group Number Insured Name Patient Relationship to Insured Coverage Start Date Coverage End Date [facility] [address] [place] [address] [phone] [id number] JOSE WINSLOW Self - patient is the insured Medical (General) History Medical History History ICD Code Mitral valve insufficiency-- scheduled for surgery for a mitral valve repair at [facility] on 04/24/2024--has initially been seeing Dr. Doherty but was then referred to [facility] for his surgery HTN Denies [place],DM,CVA,Lung disease,renal dise ase Chronic diarrhea-colonoscopy as below--negative [...] on 12/[address] scan at [facility]--- this appears to be an incidental finding as he is asymptomatic in that regard-reviewed with patient at the 03/01/24 OV Surgical History Surgery Date(Month/Year)
--- OUTSIDE RECORDS SUMMARY | 2025-03-01 10:37 | XMS_ITS | Encounter Summary ---
Author Organization [facility] Address [address] [facility] [address] [place] [address] Phone Care Team Providers Care [employer] Professional Name Role Phone Faye Avelar MD Primary Care Provider Shagufta Bhakta MD, PhD Unavailable [phone] Waqas Diaz MD Unavailable [phone] Encounter Details Date Type Department Care Team ([facility] st Contact Info) Description 04/24/2024 Telephone VIRTUAL DEPARTMENT [address] [place] [phone] Natalie Acosta MD [address] [place] [phone] [email or web address] Social History Tobacco Use Types Packs/Day [...] Description 04/03/2025 11:30 AM EST Office Visit [facility] Division of Cardiac Surgery [address] [facility], 6th Floor, [address] [place] [address] Natalie Acosta MD [address] [facility] [address] [place] [address] [email or web address] 04/03/2025 1:30 PM EST Office Visit [facility] [address] [facility], 5th Floor, [address] [place] [address] Shagufta Bhakta MD, PhD [address] [facility] [address] [place] [address] [email or web address] documented as of this encounter Visit Diagnoses Not on filedocumented in this encounter Care Teams Middle School Professional Relationship Specialty Start Date End Date Faye Avelar MD [address] [facility] [place] [address] PCP - General Internal Medicine 09/19/23 Shagufta Bhakta MD, PhD [address] [facility] [address] [place] [address] [email or web address] Interventional Cardiology 10/11/23 Waqas Diaz MD [address] [place] [address] Drive [address] [place] [address] Gastroenterology 02/14/25 documented as of this encounter Additional Source Comments The information contained in this document represents components of the legal health record. It is not the complete legal health record.[facility]
--- OUTSIDE RECORDS SUMMARY | 2025-03-01 10:37 | XMS_ITS | Encounter Summary ---
Author Organization [facility] Address [address] [facility] [address] [place] [address] Phone Care Team Providers Care Director Of Security Name Role Phone Faye Avelar MD Primary Care Provider Shagufta Bhakta MD, PhD Unavailable [phone] Waqas Diaz MD Unavailable [phone] Encounter Details Date Type Department Care Team ([facility] st Contact Info) Description 03/27/2024 Telephone VIRTUAL DEPARTMENT [address] [place] [phone] Natalie Acosta MD [address] [place] [address] [email or web address] Social History Tobacco Use Types Packs/Day [...] Description 04/03/2025 11:30 AM EST Office Visit [facility] Division of Cardiac Surgery [address] [facility], 6th Floor, [address] [place] [address] Natalie Acosta MD [address] [facility] [address] [place] [address] [email or web address] 04/03/2025 1:30 PM EST Office Visit [facility] [address] [facility], 5th Floor, [address] [place] [address] Shagufta Bhakta MD, PhD [address] [facility] [address] [place] [address] [email or web address] documented as of this encounter Visit Diagnoses Not on filedocumented in this encounter Care Teams Director Of Security Relationship Specialty Start Date End Date Faye Avelar MD [address] [place] [address] PCP - General Internal Medicine 09/19/23 Shagufta Bhakta MD, PhD [address] [facility] [address] [place] [address] [email or web address] [employer] Interventional Cardiology 10/11/23 Waqas Diaz MD [address] [place] [address] Drive [address] [place] [address] Gastroenterology 02/14/25 documented as of this encounter Additional Source Comments The information contained in this document represents components of the legal health record. It is not the complete legal health record.[facility]
--- OUTSIDE RECORDS SUMMARY | 2025-03-01 10:37 | XMS_ITS | Encounter Summary ---
Author Organization [facility] Address [address] [facility] [address] [place] [address] Phone Care Team Providers Care Patient Assistant Name Role Phone Faye Avelar MD Primary Care Provider Shagufta Bhakta MD, PhD Unavailable [phone] Waqas Diaz MD Unavailable [phone] Encounter Details Date Type Department Care Team (Late st Contact Info) Description 06/26/2024 Procedure Pass [facility] PERIOPERATIVE DEPT [address] [place] [phone] Social History Tobacco Use Types Packs/Day Years [...] Description 04/03/2025 11:30 AM EST Office Visit [facility] Division of Cardiac Surgery [address] [facility], 6th Floor, [address] [place] [address] Natalie Acosta MD [address] [place] [address] [place] [address] [email or web address] 04/03/2025 1:30 PM EST Office Visit [facility] [address] [facility], 5th Floor, [address] [place] [address] Shagufta Bhakta MD, PhD [facility] [address] [place] [address] [email or web address] documented as of this encounter Visit Diagnoses Not on filedocumented in this encounter Care Teams Patient Assistant Relationship Specialty Start Date End Date Faye Avelar MD [address] [place] [address] PCP - General Internal Medicine 09/19/23 Shagufta Bhakta MD, PhD [address] [facility] [address] [place] [address] [email or web address] Manager Line Interventional Cardiology 10/11/23 Waqas Diaz MD [address] [place] [address] Gastroenterology 02/14/25 documented as of this encounter Additional Source Comments The information contained in this document represents components of the legal health record. It is not the complete legal health record.[facility]
--- OUTSIDE RECORDS SUMMARY | 2025-03-01 10:37 | XMS_ITS | Encounter Summary ---
Author Organization [facility] Address [address] [facility] [address] [place] [address] Phone Care Team Providers Care Bi Data Modeler Name Role Phone Faye Avelar MD Primary Care Provider [phone] Shagufta Bhakta MD, PhD Unavailable [phone] Waqas Diaz MD Unavailable [phone] Encounter Details Date Type Department Care Team (Late st Contact Info) Description 10/02/2024 Procedure Pass [facility] PERIOPERATIVE DEPT [address] [place] [phone] Social History Tobacco Use Types Packs/Day Years [...] Description 04/03/2025 11:30 AM EST Office Visit [facility] Division of Cardiac Surgery [address] [facility], 6th Floor, [address] [place] [address] Natalie Acosta MD [address] [place] [address] [place] [address] [email or web address] 04/03/2025 1:30 PM EST Office Visit [facility] [address] [facility], 5th Floor, [address] [place] [address] Shagufta Bhakta MD, PhD [facility] [address] [place] [address] DIANA@[email or web address] documented as of this encounter Visit Diagnoses Not on filedocumented in this encounter Care Teams Bi Data Modeler Relationship Specialty Start Date End Date Faye Avelar MD [address] [facility] [place] [address] PCP - General Internal Medicine 09/19/23 Shagufta Bhakta MD, PhD [facility] [address] [place] [address] DIANA@[email or web address] Perch Machine Inspector Interventional Cardiology 10/11/23 Waqas Diaz MD [address] [place] [address] Gastroenterology 02/14/25 documented as of this encounter Additional Source Comments The information contained in this document represents components of the legal health record. It is not the complete legal health record.[facility]
--- OUTSIDE RECORDS SUMMARY | 2025-03-01 10:37 | XMS_ITS | Encounter Summary ---
Author Organization [facility] Address [address] [facility] [address] [place] [address] Phone Care Team Providers Care Mash Processing Operator Name Role Phone Faye Avelar MD Primary Care Provider Shagufta Bhakta MD, PhD Unavailable [phone] Waqas Diaz MD Unavailable [phone] Encounter Details Date Type Department Care Team ([facility] st Contact Info) Description 11/29/2024 Telephone VIRTUAL DEPARTMENT [address] [place] [phone] Natalie Acosta MD [address] [place] [address] [email or web address] Social History Tobacco Use Types Packs/Day [...] Description 04/03/2025 11:30 AM EST Office Visit [facility] Division of Cardiac Surgery [address] [facility], 6th Floor, [address] [place] [address] Natalie Acosta MD [address] [facility] [address] [place] [address] [email or web address] 04/03/2025 1:30 PM EST Office Visit [facility] [address] [facility], 5th Floor, [address] [place] [address] Shagufta Bhakta MD, PhD 55 [facility] [address] [place] [address] [email or web address] documented as of this encounter Visit Diagnoses Not on filedocumented in this encounter Care Teams Mash Processing Operator Relationship Specialty Start Date End Date Faye Avelar MD [address] [facility] [place] [address] PCP - General Internal Medicine 09/19/23 Shagufta Bhakta MD, PhD 55 [facility] [address] [place] [address] DIANA@[email or web address] Custodial Foreman Interventional Cardiology 10/11/23 Waqas Diaz MD [address] [place] [address] Drive [address] [place] [address] Gastroenterology 02/14/25 documented as of this encounter Additional Source Comments The information contained in this document represents components of the legal health record. It is not the complete legal health record.[facility]
--- OUTSIDE RECORDS SUMMARY | 2025-03-01 10:37 | XMS_ITS | Encounter Summary ---
Author Organization [facility] Address [address] [facility] [address] [place] [address] Phone Care Team Providers Care Outbound Sales Professional Name Role Phone Faye Avelar MD Primary Care Provider [phone] Shagufta Bhakta MD, PhD Unavailable [phone] Waqas Diaz MD Unavailable [phone] Encounter Details Date Type Department Care Team (Late st Contact Info) Description 02/14/2025 Orders Only [facility] Division of Cardiac Surgery [address] [place] [address], 6th Floor, [address] [place] [address] Provider, MD Med [address] [place] [address] Social History Tobacco Use Types Packs/Day Years [...] Description 04/03/2025 11:30 AM EST Office Visit [facility] Division of Cardiac Surgery [address] [facility], 6th Floor, [address] [place] [address] Natalie Acosta MD 55 [facility] [address] [place] [address] [email or web address] 04/03/2025 1:30 PM EST Office Visit [facility] 32 [facility], 5th Floor, [address] [place] [address] Shagufta Bhakta MD, PhD 55 [facility] 800 [place] [address] DIANA@[email or web address] documented as of this encounter Procedures Procedure Name Priority Date/Time Associated Diagnosis Comments OUTSIDE LAB Routine 02/14/2025 3:14 PM EDT documented in this encounter Results * Outside Lab (02/14/2025 3:14 PM EDT) us Historical Provider LAB BLOOD ORDERABLES Jeanine l Result documented in this encounter Visit Diagnoses Not on filedocumented in this encounter Care Teams Outbound Sales Professional Relationship Specialty Start Date End Date Faye Avelar MD [address] [facility] [place] [address] PCP - General Internal Medicine 09/19/23 Shagufta Bhakta MD, PhD 55 [facility] [address] [place] [address] DIANA@[email or web address] Literacy Education Professor Interventional Cardiology 10/11/23 Waqas Diaz MD [address] [place] [address] Gastroenterology 02/14/25 documented as of this encounter Additional Source Comments The information contained in this document represents components of the legal health record. It is not the complete legal health record.[facility]
--- OUTSIDE RECORDS SUMMARY | 2025-03-01 10:37 | XMS_ITS | Encounter Summary ---
Author Organization [facility] Address [address] [facility] [address] [place] [address] Phone Care Team Providers Care Energy Project Manager Name Role Phone Faye Avelar MD Primary Care Provider Shagufta Bhakta MD, PhD Unavailable [phone] Waqas Diaz MD Unavailable [phone] Encounter Details Date Type Department Care Team (Late st Contact Info) Description 09/11/2024 Procedure Pass [facility] Card[facility] [address] [place] [address] Social History Tobacco Use Types Packs/Day Years [...] Description 04/03/2025 11:30 AM EST Office Visit [facility] Division of Cardiac Surgery [address] [facility], 6th Floor, [address] [place] [address] Natalie Acosta MD [address] [place] [address] [place] [address] [email or web address] 04/03/2025 1:30 PM EST Office Visit [facility] [address] [facility], 5th Floor, [address] [place] [address] Shagufta Bhakta MD, PhD [address] [facility] [address] [place] [address] DIANA@[email or web address] documented as of this encounter Visit Diagnoses Not on filedocumented in this encounter Care Teams Energy Project Manager Relationship Specialty Start Date End Date Faye Avelar MD [address] [facility] [place] [address] PCP - General Internal Medicine 09/19/23 Shagufta Bhakta MD, PhD [address] [facility] [address] [place] [address] DIANA@[email or web address] Learning Support Services Director Interventional Cardiology 10/11/23 Waqas Diaz MD [address] [place] [address] Gastroenterology 02/14/25 documented as of this encounter Additional Source Comments The information contained in this document represents components of the legal health record. It is not the complete legal health record.[facility]
== END 2025-03-01 11:11 | disposition home or self-care (01) ==
LOC: HO.HMCC 09:49
PROVIDERS: PCP Internal Medicine; Visit Provider Internal Medicine
DX: Z98.890 Other specified postprocedural states (principal); D50.0 Iron deficiency anemia secondary to blood loss (chronic); R07.89 Other chest pain; K27.9 Peptic ulcer, site unspecified, unspecified as acute or chronic, without hemorrhage or perforation

== ENCOUNTER 2025-03-01 09:49 | Outpatient (REF) | payer BC, SELFPAY ==
[2025-03-01 13:03] LABS: MANUAL DIFF FLAG NO
[2025-03-01 13:08] LABS: Hematocrit 32.9 % (42.0-52.0); Hemoglobin 9.9 g/dl (14.0-18.0); Imm Gran Abs Auto 0.11 X10*3/uL (0.00-0.03); Imm Gran Pct Auto 1.4 % (0.0-0.4); Lymphocytes Absolute Auto 1.1 X10*3/uL (1.2-4.9); Mean Corpuscular HGB Conc 30.1 g/dl (31.0-36.0); Mean Corpuscular Hemoglobin 25.7 pg (27.0-33.0); Mean Corpuscular Volume 85.5 fL (80.0-98.0); NRBC Abs Auto 0.000 X10*3/uL (0.0-0.012); NRBC Pct Auto 0.0 /100WBC (0.0-0.2); Platelet Count 443 X10*3/uL (160-400); Red Blood Count 3.85 X10*6/uL (4.60-5.80); White Blood Count 7.6 X10*3/uL (4.8-10.8)
[2025-03-01 13:39] LABS: Alanine Aminotransferase 152 U/L (0-40); Albumin Level 3.9 g/dL (3.5-5.0); Alkaline Phosphatase 185 U/L (39-117); Anion Gap 11 (12-20); Aspartate Amino Transferase 58 U/L (5-37); Blood Urea Nitrogen 18 mg/dL (9-16); Calcium 9.6 mg/dL (8.4-10.2); Carbon Dioxide 33 mmol/L (22-29); Chloride 99 mmol/L (96-108); Estimated Glomerular Filt Rate 57; Potassium 4.0 mmol/L (3.3-5.1); Sodium 139 mmol/L (135-145); Total Protein 7.1 g/dL (6.5-8.0)
[2025-03-01 13:45] LABS: Ferritin 108 ng/mL (20-250)
[2025-03-01 13:48] LABS: Vitamin B12 1219 pg/mL (200-900)
[2025-03-06 17:09] LABS: Vitamin D 25-OH, D2 <4 ng/mL; Vitamin D 25-OH, D3 25 ng/mL; Vitamin D 25-OH, Total 25 ng/mL (30-100)
== END 2025-03-01 09:50 | disposition home or self-care (01) ==
LOC: HO.HMGCLDS 09:49
PROVIDERS: PCP Internal Medicine; Visit Provider Internal Medicine
DX: R07.89 Other chest pain (principal); D50.0 Iron deficiency anemia secondary to blood loss (chronic); K27.9 Peptic ulcer, site unspecified, unspecified as acute or chronic, without hemorrhage or perforation; Z98.890 Other specified postprocedural states
CPT/HCPCS: 36415; 80053; 82306; 82607; 82728; 85025; 96127

== ENCOUNTER 2025-03-25 13:56 | Outpatient (REF) | payer BC, SELFPAY ==
[2025-03-25 16:14] LABS: MANUAL DIFF FLAG NO
[2025-03-25 16:21] LABS: Hematocrit 33.1 % (42.0-52.0); Hemoglobin 10.0 g/dl (14.0-18.0); Imm Gran Abs Auto 0.02 X10*3/uL (0.00-0.03); Imm Gran Pct Auto 0.4 % (0.0-0.4); Lymphocytes Absolute Auto 1.3 X10*3/uL (1.2-4.9); Mean Corpuscular HGB Conc 30.2 g/dl (31.0-36.0); Mean Corpuscular Hemoglobin 26.1 pg (27.0-33.0); Mean Corpuscular Volume 86.4 fL (80.0-98.0); NRBC Abs Auto 0.000 X10*3/uL (0.0-0.012); NRBC Pct Auto 0.0 /100WBC (0.0-0.2); Platelet Count 222 X10*3/uL (160-400); Red Blood Count 3.83 X10*6/uL (4.60-5.80); White Blood Count 5.7 X10*3/uL (4.8-10.8)
[2025-03-25 16:44] LABS: Alanine Aminotransferase 41 U/L (0-40); Albumin Level 4.1 g/dL (3.5-5.0); Alkaline Phosphatase 124 U/L (39-117); Anion Gap 12 (12-20); Aspartate Amino Transferase 21 U/L (5-37); Blood Urea Nitrogen 11 mg/dL (9-16); Calcium 8.6 mg/dL (8.4-10.2); Carbon Dioxide 28 mmol/L (22-29); Chloride 104 mmol/L (96-108); Estimated Glomerular Filt Rate > 60; Iron 33 mcg/dL (45-160); Percent Iron Saturation 9 % (15-50); Potassium 4.0 mmol/L (3.3-5.1); Sodium 140 mmol/L (135-145); Total Iron Binding Capacity 368 mcg/dL (228-428); Total Protein 7.0 g/dL (6.5-8.0); Unsaturated Iron Binding 335 ug/dL
[2025-03-25 17:00] LABS: Ferritin 80 ng/mL (20-250)
== END 2025-03-25 13:57 | disposition home or self-care (01) ==
LOC: HO.HMGCLDS 13:56
PROVIDERS: PCP Internal Medicine; Visit Provider Internal Medicine
DX: D50.0 Iron deficiency anemia secondary to blood loss (chronic) (principal); D64.9 Anemia, unspecified; R74.8 Abnormal levels of other serum enzymes; R79.89 Other specified abnormal findings of blood chemistry
CPT/HCPCS: 36415; 80053; 82248; 82728; 83540; 85025

== ENCOUNTER 2025-03-27 13:49 | Outpatient (AMB) | payer BC, SELFPAY ==
--- OUTSIDE RECORDS SUMMARY | 2024-01-13 08:40 | XMS_ITS ---
Author Organization [facility] Address [address] [place] [address] Care Team Providers Care Structural Steel Fitter Name Role Phone Valentino HATCH, Faye Primary Care Provider Waqas Cash [phone] REASON FOR VISIT chronic diarrhea, abnormal weight loss, abnormal findings on diagnostic imaging Encounters Encounter Location Date Provider Diagnosis [facility] Out[facility] [address] [place] [id number] 01/13/2024 Waqas Diaz Plan Of Treatment Next Appt Details Provider Name:Waqas Diaz , 06/19/2025 03:40:00 PM, [address], [address], [place], [address], Progress Notes * JOSE WINSLOWDOB: [birth year] (50 yo M)Acc No.[id number]:01/13/2024 EGD/MAC Patient: N ARELY JOSE Baez Provider: Jimena Diaz MD :1975 A ge:48 Y S ex:Male Date:01/13/2024 Address:[address] [id number] Pcp:Faye Avelar MD Subjective: * Chief Complaints: [...] 0 01/13/2024 Generated for Blanca lou/Ariel/Mally on: 05/27/2024 04:48 PM EST
--- OUTSIDE RECORDS SUMMARY | 2024-01-18 06:30 | XMS_ITS ---
Author Organization [facility] Address [address] [place] [address] Care Team Providers Care Alliance Consultant Name Role Phone Valentino HATCH, [facility] Primary Care Provider Waqas Cash [phone] REASON FOR VISIT chronic diarrhea, abnormal weight loss, abnormal findings on diagnostic imaging Problems Problem Type SNOMED Code ICD Code Onset Dates Problem Status W/U Status Risk Notes Problem Gastroesophageal reflux disease with esophagitis (disorder) (427602297) Gastroesophageal reflux disease with esophagitis without hemorrhage (K21.00) Active confirmed Problem Duodenitis (92978011) Duodenitis (K29.80) Active confirmed Problem Duodenal ulcer disease (69343680) Duodenal ulcer disease (K26.9) Active confirmed Problem Gastric ulcer (901845176) Gastric ulcer (K25.9) Active confirmed Encounters Encounter Location Date Provider Diagnosis [facility] [place] Outpatient [address] [place] [phone] 01/18/2024 Waqas Diaz Gastroesophageal ref lux disease [...] 03:40:00 PM, [address], [address], [place], [address], Progress Notes * GOLDYJOCELINJOSE JDOB: [birth year] (50 yo M)Acc No.[id number]:01/18/2024 EGD/MAC Patient: JOSE CHING Provider: Jimena Diaz MD :1975 A ge:48 Y S ex:Male Date:01/18/2024 Address:[address] [place] [address] Pcp:Faye Avelar MD Subjective: * Chief Complaints: [...] 0 01/18/2024 Generated for Jonathani ng/Fadavidg/eTransmitting on: 05/27/2024 04:49 PM EST
--- OUTSIDE RECORDS SUMMARY | 2024-08-09 09:00 | XMS_ITS ---
Author Organization [facility] Address [address] [place] [address] Care Team Providers Care Plumbing Warehouse Helper Name Role Phone Valentino HATCH, Faye Primary Care Provider Waqas Cash [phone] Encounters Encounter Location Date Provider Diagnosis [facility] [place] [address] [place], [place] [id number] 08/09/2024 Waqas Diaz Plan Of Treatment Next Appt Details Provider Name:Waqas Diaz , 06/19/2025 03:40:00 PM, [address], [address], [place], [address], Progress Notes * JOSE WINSLOWDOB: [birth year] (50 yo M)Acc No.[id number]:08/09/2024 COLON WITH MAC Patient: Codey MCGEE JOSE Baez Provider: Jimena Diaz MD :1975 A ge:49 Y S ex:Male Date:08/09/2024 Address:[id number] Pcp:Faye Avelar MD Subjective: * Chief Complaints: * * Medical History: Objective: * Vitals: Assessment: Plan: * Treatment: * * The named appointment provid er may or may not be the originator of this progress note, and it is not deemed complete until electronically signed by the appointment provider. Sign off status: Pending * Provider: Jimena Diaz MD Date: 0 08/09/2024 Generated for Blanca lou/Ariel/Mally on: 1 05/27/2024 04:50 PM EST
--- OUTSIDE RECORDS SUMMARY | 2024-08-23 09:30 | XMS_ITS ---
Author Organization [facility] Address [address] [place] [address] Care Team Providers Care Junior Bookkeeper Name Role Phone Valentino HATCH, [facility] Primary Care Provider Waqas Cash [phone] REASON FOR VISIT diarrhea,anemia, rectal bleeding ,peptic ulcer Encounters Encounter Location Date Provider Diagnosis [facility] [place] Out[place] [address] [place] [id number] 08/23/2024 Waqas Diaz Rectal bleed K62.5 ; [...] [address], [address], [place], [address], Progress Notes * JOSE WINSLOW JDOB: [birth year] (50 yo M)Acc No.[id number]:08/23/2024 EGD and COL/MAC Patient: JOSE CHING Provider: Jimena Diaz MD :1975 A ge:49 Y S ex:Male Date:08/23/2024 Address:[address] [place] [address] [id number] Pcp:Faye Avelar MD Subjective: * Chief Complaints: [...] Procedure Codes: 4 5380 COLONOSCOPY AND BIOPSY, 62502 UPPER GI ENDOSCOPY, BIOPSY * * The named appointment provid er may or may not be the originator of this progress note, and it is not deemed complete until electronically signed by the appointment provider. Sign off status: Pending * Provider: Jimena Diaz MD Date: 0 08/23/2024 Generated for Blanca lou/Ariel/eTransmitting on: 05/27/2024 04:48 PM EST
--- OUTSIDE RECORDS SUMMARY | 2025-03-05 05:20 | XMS_ITS ---
Author Organization [facility] Address [address] [place] [address] Care Team Providers Care Yeast Stacker Name Role Phone Valentino HATCH, Faye Primary Care Provider Waqas Cash [phone] REASON FOR VISIT Patient presents today for anemia Encounters Encounter Location Date Provider Diagnosis [facility] [address] [place] [address] 03/05/2025 Waqas Diaz Plan Of Treatment Next Appt Details Provider Name:Waqas Diaz , 06/19/2025 03:40:00 PM, [address], [address], [place], [address], Progress Notes * JOSE WINSLOWDOB: [birth year] (50 yo M)Acc No.[id number]:03/05/2025 Progress Notes Patient: JOCELIN CHINGESMER Baez Provider: Jimena Diaz MD :1975 A ge:50 Y S ex:Male Date:03/05/2025 [id number] Pcp:Faye Avelar MD Subjective: * Chief Complaints: * 1 . Patient presents today for anemia. * Medical History: Objective: * Vitals: Assessment: Plan: * Treatment: * * The named appointment provid er may or may not be the originator of this progress note, and it is not deemed complete until electronically signed by the appointment provider. Sign off status: Pending * Provider: Jimena Diaz MD Date: 1 Generated for Blanca lou/Ariel/Mally on: 05/27/2024 04:50 PM EST
--- NOTE | 2025-03-27 13:54 | A.OFFPC_ITS ---
Vital Signs 03/27/25 13:55 Height 6 ft Weight 174 lb BMI 23.6 BP 122/70 Blood Pressure Location Lt brachial Position Sitting Pulse 65 Pulse Source Pulse Oximeter Pulse Oximetry (%) 99 Intake Visit Reasons: incision Allergies No Known Allergies Allergy (Verified 03/27/25 13:55) Medication List - Last Reconciled 03/27/25 by Faye Avelar MD amiodarone 200 mg PO DAILY apixaban (Eliquis) 5 mg PO BID cholecalciferol (vitamin D3) 50 mcg PO DAILY cyanocobalamin (vitamin B-12) (Vitamin B-12) 500 mcg PO DAILY folic acid 1 mg PO DAILY metoprolol succinate ER 25 mg PO BID omeprazole 20 mg PO QAM oxycodone 2.5 - 5 mg PO Q8H PRN potassium chloride ER (Klor-Con M) 20 mEq PO DAILY torsemide 20 mg PO DAILY Tobacco use date assessed: 08/17/24 Dental Screening Dental Screen Date: 08/17/24 HPI incision HPI Details History of Present Illness The patient is a 50-year-old male presenting for a post-operative follow-up v isit and management of related symptoms. Anemia: - The patient's hemoglobin is gradually improving but remains low at 10 g/dL as of two days ago, with a microcytic presentation. - His surgeon has now approved him to ta ke iron supplements, which he has been taking twice a day, and his iron level is normal at 80. - The patient's fatigue is attributed to being anemic. Elevated Liver Enzymes: - The patient's liver enzymes, which wer e previously high, are improving. - Specifically, his alkaline phosphatase has decreased from 185 to 124. Postoperative Status: - The patient is recovering from a recen t mitral valve repair surgery in [place]. - His surgical incisions, particularly u nder the armpit and near the drain site, are very sore and sensitive, which is exacerbated by clothing. - He recently strained himself while cat luis his mother who was falling, causing subsequent soreness, but he reports his wounds were closed at the time. Insomnia and Anxiety: - The patient reports significant diffic ulty sleeping, often staying awake until 5:00 AM. - He has tried melatonin without relief. - At night, when he sits or lies down to relax, he experiences anxiety, concentrates excessively on his breathing, and feels a sensation of shortness of breath, which feels like a heart attack. - This anxiety prompts him to check his blood pressure and oxygen saturation. Adverse effects of medication: - The patient reports feeling dizzy and lightheaded, which he attributes to his medications, including amiodarone and metoprolol. - He notes that he is nearly finished wi th his course of amiodarone. Medical History: - Mitral valve disease - Anemia - History of elevated liver enzymes - History of taking atenolol without rashaun e effects Surgical History: - Mitral valve repair, recently performe d in [place] Medications: - Iron supplement, two times a day - Amiodarone, reports having two tablets left and then will stop as per surgery advise - Metoprolol - Aspirin - Oxycodone as needed for pain, has run out - Discontinued torsemide - Discontinued potassium Social History: - Smoking: Patient reports he has stoppe d smoking - . Diagnostic Results: - Labs (from 2 days ago): - Hemoglobin: 10 g/dL (microcytic) - Iron: 80 - Alkaline Phosphatase: 124 U/L (previou sly 185) Problem List - Anemia - Status post mitral valve repair - Postprocedural pain and sensitivity - Anxiety - Insomnia - Elevated liver enzymes Plan - For anemia, the patient will continue taking iron twice daily. repeat labs in one month - For medication management, the patient will taper amiodarone by taking half a pill for the remaining two doses. He will continue metoprolol. Torsemide and potassium will remain discontinued. - For insomnia and anxiety, a prescripti on for lorazepam will be sent to the pharmacy to be taken at night. The patient was counseled that this is for short- term use (2-3 months) and can be habit-forming. - For incision site care, the patient wa s reassured there is no infection. He was advised to use baby powder instead of deodorant near the underarm incision to avoid irritation. - The patient will be provided a copy of his recent labs to share with his surgeon at his appointment next Tuesday. - The patient will follow up in the clin ic in one month. Review of Systems - Constitutional: Reports fatigue and ti redness. - Denies fever. - Cardiovascular: Reports occasional sta bbing pains in the chest. - Reports a subjective feeling of - rattling - in the chest. - Respiratory: Reports shortness of joey th, particularly when sitting or lying down. - Integumentary: Reports soreness and se nsitivity at surgical incision sites, which is worse with clothing. - Reports a - puffy - feeling and - Neurological: Reports dizziness, light headedness, and numbness at incision sites. - Denies headaches. - Psychiatric: Reports difficulty sleepi ng, anxiety, and a tendency to concentrate on his breathing. - Gastrointestinal: Denies nausea or vom iting. Physical Exam General: No acute distress HEENT: No acute findings Neck: Supple Respiratory system: Able to talk in full sentences, no audible wheeze, lungs are clear Cardiovascular: S1-S2 regular in rate and rhythm, heart sounds good Gastrointestinal: No pain, no nausea, no vomiting Extremities: No new findings STEEPLE JACK: Alert awake oriented x3 motor intact Skin: Normal turgor, sensitive around incision sites, no infection, well-healed [facility] Medical History Murmur Hx of peptic ulcer Iron deficiency anemia HTN (hypertension) Severe mitral regurgitation Surgical History History of open heart surgery History of esophagogastroduodenoscopy (EGD) H/O colonoscopy Family History Father No problems noted. Mother No problems noted. Social History Housing: House Alcohol intake: current Alcohol intake frequency: a few times a month Patient Tobacco Use Status: Current everyday Tobacco user Tobacco use type: Cigarette e-Cigarette/Vaping Use: Never Used Current occupational status: employed Cognitive needs: No Hearing needs: No Vision needs: Yes Questionnaire Thrive Questionnaire Date Thrive assessed: 08/17/24 I am a: Patient What is your living situation today?: I have a steady place to live Within the past 12 months, did the food you bought not last and you didn't have the money to get more?: Never true Within the past 12 months, did you worry whether your food would run out before you got money to buy more?: Never true Do you have trouble paying for medicines?: No Do you have trouble getting transportation to medical appointments?: No Do you have trouble paying your heating and electricity bill?: No Do you have trouble taking care of your child, family member or friend?: No Do you have trouble with day-to-day activities such as bathing, preparing meals, shopping, managing finances, etc.?: No Are you currently unemployed and looking for a job?: No Are you interested in more education?: No Please select the resources that you would like help with: None Currently or been in a relationship where the following occur: No concerns reported THRIVE Score: 0 SYBIL-7 AMB Questionnaire SYBIL-7 Date SYBIL - 7 assessed: 08/17/24 Source: Developed by Drs. Waqas Rutledge, Carol Colon, Oren Brown and colleagues, with an educational kayla from [employer]. Physical exam (Primary Care) Vital Signs: Last Vital Signs Pulse 65 03/27/25 13:55 BP 122/70 03/27/25 13:55 Pulse Ox 99 03/27/25 13:55 BMI result Body Mass Index 23.6 Tobacco/Smoking Status: Tobacco use Status Tobacco use date assessed 08/17/24 03/27/25 13:56 Patient Tobacco Use Status Current everyday Tobacco 03/27/25 13:56 Tobacco use type Cigarette 03/27/25 13:56 e-Cigarette/Vaping Use Never Used 03/27/25 13:56 Thrive Assessment: Date of Thrive Assessment Date Thrive assessed 08/17/24 03/27/25 13:56 Currently or been in a relationship where the following occur: No concerns reported Coding Level of Care Code Est Pt Level 4 (60272) Diagnoses Microcytic anemia D50.9 H/O mitral valve repair Z98.890 Skin sensitivity R23.8 Psychophysiological insomnia F51.04 Insomnia type: psychophysiologic Anxiety about health F41.8 LFT elevation R79.89 Fatigue, unspecified type R53.83 Fatigue type: unspecified Assessment & Plan Assessment & Plan (1) Microcytic anemia: Code(s): D50.9 - Iron deficiency anemia, unspecified Category: Medical (2) H/O mitral valve repair: Code(s): Z98.890 - Other specified postprocedural states Category: Surgical (3) Skin sensitivity: Code(s): R23.8 - Other skin changes Category: Medical (4) Insomnia: Code(s): G47.00 - Insomnia, unspecified Category: Medical Qualifiers: Insomnia type: psychophysiologic Qualified Code(s): F51.04 - Psychophysiologic insomnia (5) Anxiety about health: Code(s): F41.8 - Other specified anxiety disorders Category: Medical (6) LFT elevation: Code(s): R79.89 - Other specified abnormal findings of blood chemistry Category: Medical (7) Fatigue: Code(s): R53.83 - Other fatigue Category: Medical Qualifiers: Fatigue type: unspecified Qualified Code(s): R53.83 - Other fatigue Plan Anemia: - The patient's hemoglobin is gradually improving but remains low at 10 g/dL as of two days ago, with a microcytic presentation. - His surgeon has now approved him to take iron supplements, which he has been taking twice a day, and his iron level is normal at 80. - The patient's fatigue is attributed to being anemic. Elevated Liver Enzymes: - The patient's liver enzymes, which were previously high, are improving. - Specifically, his alkaline phosphatase has decreased from 185 to 124. Postoperative Status: - The patient is recovering from a recent mitral valve repair surgery in [place]. - His surgical incisions, particularly under the armpit and near the drain site, are very sore and sensitive, which is exacerbated by clothing. - He recently strained himself while catching his mother who was falling, causing subsequent soreness, but he reports his wounds were closed at the time. Insomnia and Anxiety: - The patient reports significant difficulty sleeping, often staying awake until 5:00 AM. - He has tried melatonin without relief. - At night, when he sits or lies down to relax, he experiences anxiety, concentrates excessively on his breathing, and feels a sensation of shortness of breath, which feels like a heart attack. - This anxiety prompts him to check his blood pressure and oxygen saturation. Adverse effects of medication: - The patient reports feeling dizzy and lightheaded, which he attributes to his medications, including amiodarone and metoprolol. - He notes that he is nearly finished with his course of amiodarone. Medical History: - Mitral valve disease - Anemia - History of elevated liver enzymes - History of taking atenolol without side effects Surgical History: - Mitral valve repair, recently performed in [place] Medications: - Iron supplement, two times a day - Amiodarone, reports having two tablets left and then will stop as per surgery advise - Metoprolol - Aspirin - Oxycodone as needed for pain, has run out - Discontinued torsemide - Discontinued potassium Social History: - Smoking: Patient reports he has stopped smoking - . Diagnostic Results: - Labs (from 2 days ago): - Hemoglobin: 10 g/dL (microcytic) - Iron: 80 - Alkaline Phosphatase: 124 U/L (previously 185) Problem List - Anemia - Status post mitral valve repair - Postprocedural pain and sensitivity - Anxiety - Insomnia - Elevated liver enzymes Plan - For anemia, the patient will continue taking iron twice daily. repeat labs in one month - For medication management, the patient will taper amiodarone by taking half a pill for the remaining two doses. He will continue metoprolol. Torsemide and potassium will remain discontinued. - For insomnia and anxiety, a prescription for lorazepam will be sent to the pharmacy to be taken at night. The patient was counseled that this is for short- term use (2-3 months) and can be habit-forming. - For incision site care, the patient was reassured there is no infection. He was advised to use baby powder instead of deodorant near the underarm incision to avoid irritation. - The patient will be provided a copy of his recent labs to share with his surgeon at his appointment next Tuesday. - The patient will follow up in the clinic in one month. Orders: Orders Comprehensive Met. Panel Today D50.9 - Iron deficiency anemia, unspecified Ferritin 4 Months D50.9 - Iron deficiency anemia, unspecified Complete Blood Count Auto Diff 4 Weeks D50.9 - Iron deficiency anemia, unspecified Medications: New lorazepam 0.5 mg PO BEDTIME PRN 30 tabs 0RF anxiety
[2025-03-27 13:55] VITALS: BP 122/70; PULSE 65; O2SAT 99; BMI 23.6
--- OUTSIDE RECORDS SUMMARY | 2025-03-27 16:47 | XMS_ITS | Encounter Summary ---
Author Organization [facility] Address [address] [place] [address] Phone Care Team Providers Care Launching Pad Mechanic Name Role Phone Faye Avelar MD Primary Care Provider [phone] Shagufta Bhakta MD, PhD Unavailable [phone] Waqas Diaz MD Unavailable [phone] Encounter Details Date Type Department Care Team (Late st Contact Info) Description 02/19/2025 Procedure Pass [facility] [address] [place] [phone] Social History Tobacco Use Types Packs/Day Years [...] 6:00 PM EDT John Mohamud RN * [place] Suicide Severity Rating Scale (Screener/Recent Self-Report) Question [...] 04/03/2025 11:30 AM EST Office Visit [facility] Division of Cardiac Surgery [address] [facility], 6th Floor, [address] [place] [address] Natalie Acosta MD [address] [facility] [address] [place] [address] [email or web address] 04/03/2025 1:30 PM EST Office Visit [facility] [address], 5th [address], [address] [place] [address] Shagufta Bhakta MD, PhD [address] [facility] [address] [place] [address] [email or web address] documented as of this encounter Visit Diagnoses Not on filedocumented in this encounter Care Teams Launching Pad Mechanic Relationship Specialty Start Date End Date Faye Avelar MD [address] [place] [address] PCP - General Internal Medicine 09/19/23 Shagufta Bhakta MD, PhD [address] [place] [address] [address] [place] [address] [email or web address] Interventional Cardiology 10/11/23 Waqas Diaz MD [address] [place] [address] [address] [place] [address] Gastroenterology 02/14/25 documented as of this encounter Additional Source Comments The information contained in this document represents components of the legal health record. It is not the complete legal health record.[facility]
--- OUTSIDE RECORDS SUMMARY | 2025-03-27 16:48 | XMS_ITS | Encounter Summary ---
Author Organization [facility] Address [address] [facility] [address] [place] [address] Phone Care Team Providers Care Office Machines Teacher Name Role Phone Faye Avelar MD Primary Care Provider [phone] Shagufta Bhakta MD, PhD Unavailable [phone] Waqas Diaz MD Unavailable [phone] Encounter Details Date Type Department Care Team (Late st Contact Info) Description 02/19/2025 Procedure Pass [facility] Cardiac US [address] [place] [address] Social History Tobacco Use Types Packs/Day Years [...] 6:00 PM EDT John Mohamud RN * [place] Suicide Severity Rating Scale (Screener/Recent Self-Report) Question [...] [facility] [place] Division of Cardiac Surgery [address] [facility], 6th Floor, [address] [place] [address] Natalie Acosta MD [address] [facility] [address] [place] [address] [email or web address] 04/03/2025 1:30 PM EST Office Visit [facility] [address] [facility], 5th Floor, [address] [place] [address] Shagufta Bhakta MD, PhD [address] [facility] [address] [place] [address] [email or web address] documented as of this encounter Visit Diagnoses Not on filedocumented in this encounter Care Teams Office Machines Teacher Relationship Specialty Start Date End Date Faye Avelar MD [address] [facility] [place] [address] PCP - General Internal Medicine 09/19/23 Shagufta Bhakta MD, PhD [address] [place] [address] [address] [place] [address] [email or web address] Hair Mixer Interventional Cardiology 10/11/23 Waqas Diaz MD [address] [place] [address] [place] [address] Gastroenterology 02/14/25 documented as of this encounter Additional Source Comments The information contained in this document represents components of the legal health record. It is not the complete legal health record.[facility]
--- OUTSIDE RECORDS SUMMARY | 2025-03-27 16:48 | XMS_ITS | Encounter Summary ---
Author Organization [facility] Address [address] [place] [address] Phone Care Team Providers Care Motion Picture Actor Name Role Phone Faye Avelar MD Primary Care Provider Shagufta Bhakta MD, PhD Unavailable [phone] Waqas Diaz MD Unavailable [phone] Encounter Details Date Type Department Care Team (Late st Contact Info) Description 10/13/2023 Procedure Pass [facility] [address], [address] [facility], 2nd Floor, [address] [place] [address] Social History Tobacco Use Types Packs/Day Years [...] Description 04/03/2025 11:30 AM EST Office Visit [facility] Division of Cardiac Surgery [address] [facility], 6th Floor, [address] [place] [address] Natalie Acosta MD [address] [place] [address] [email or web address] 04/03/2025 1:30 PM EST Office Visit [facility] [address] [facility], 5th Floor, [address] [place] [address] Shagufta Bhakta MD, PhD [address] [facility] [address] [place] [address] [email or web address] documented as of this encounter Visit Diagnoses Not on filedocumented in this encounter Care Teams Motion Picture Actor Relationship Specialty Start Date End Date Faye Avelar MD [address] [facility] [place] [address] PCP - General Internal Medicine 09/19/23 Shagufta Bhakta MD, PhD [address] [facility] [address] [place] [address] [email or web address] Traffic Control Technician Interventional Cardiology 10/11/23 Waqas Diaz MD [address] [place] [address] Drive [address] [place] [address] Gastroenterology 02/14/25 documented as of this encounter Additional Source Comments The information contained in this document represents components of the legal health record. It is not the complete legal health record.[facility]
--- OUTSIDE RECORDS SUMMARY | 2025-03-27 16:48 | XMS_ITS | Patient Health Record ---
Author Organization [facility] Address [address] [place] [address] Care Team Providers Care Zipper Machine Operator Name Role Phone Valentino HATCH, [facility] Primary Care Provider Waqas Cash [phone] Allergies No Known Allergies Results Component Value Reference Range Notes Ferritin Reviewed date:02/14/2025 12:29:57 PM Interpretation: Performing Lab:[facility], [address] [place] [phone] Notes/Report: Ferritin 89 20-250 ng/mL Complete Blood Count Auto Di ff (Not yet reviewed by provider) Interpretation: Performing Lab:[facility], [address] [place] [phone] Notes/Report: White Blood Count 5.5 4.8-10.8 X10*3/uL [...] te Reviewed date:07/13/2024 07:08:00 PM Interpretation: Performing Lab:[address] [address] Notes/Report: Erythrocyte Sedimentation Rate 27 0-15 MM/HR Patients with polycythemia and many hemoglobin abnormalities may have depressed sed rates whereas patients with anemia may have elevated sed rates. Liver Panel Reviewed date:07/13/2024 07:07:38 PM Interpretation: Performing Lab:[address] [address] Notes/Report: Bilirubin Total 0.4 0.0-1.0 mg/dL Bilirubin Direct 0.1 0.0-0.5 mg/dL Aspartate Amino Transferase 23 5-37 U/L Alanine Aminotransferase 17 0-40 U/L Total Protein 7.1 6.5-8.0 g/dL Albumin Level 3.8 3.5-5.0 g/dL Alkaline Phosphatase 119 39-117 U/L Basic Metabolic Panel Reviewed date:07/13/2024 07:07:22 PM Interpretation: Performing Lab:[address] [address] Notes/Report: Sodium 139 135-145 mmol/L Potassium 4.1 [...] Protein Reviewed date:07/13/2024 07:07:50 PM Interpretation: Performing Lab:[address] [address] Notes/Report: C Reactive Protein 0.24 < or = 0.50 mg/dL Folate Reviewed date:07/20/2024 05:23:21 PM Interpretation: Performing Lab:[address] [address] Notes/Report: Folate 12.6 > or = 4.0 ng/mL Reference Values: > or = 4.0 ng/mL < 4.0 ng/mL suggests folate deficiency Methotrexate, aminopterin and folinic acid (leucovorin) are chemotherapeutic agents whose molecular structures are similar to folate; therefore, the Replanter folate assay cannot be used for patients using these drugs. Leukocytes Stool Qualitative Reviewed date:07/24/2024 12:40:57 PM Interpretation: Performing Lab:[address] [address] Notes/Report: Leukocytes Stool Qualitative NEGATIVE NEGATIVE Calprotectin, Fecal Reviewed date:07/29/2024 04:12:47 PM Interpretation: Performing Lab:[address] [address] Notes/Report: Calprotectin, Fecal 390 Reference Range: <50 [...] borderline values. THIS TEST WAS PERFORMED AT: Setup/[facility] [address] [place] [address] BENNIE BEDOLLA MD,PHD,XIOMARA CDiff Gene PCR Reviewed date:07/29/2024 04:12:58 PM Interpretation: Performing Lab:[facility], [address] [place] [phone] Notes/Report: CDiff Gene PCR NEGATIVE Negative If C. difficile strongly suspected despite one negative test, a second test may be sent vs. empiric treatment for C. difficile infection. GI PANEL Reviewed date:07/24/2024 12:40:48 PM Interpretation: Performing Lab:[facility], [address] [place] [phone] Notes/Report: Campylobacter Not Detected Not Detect. Plesiomonas [...] is performed by Multiplexed PCR, utilizing the SkyeTek Array. Complete Blood Count Auto Di ff Reviewed date:08/19/2024 09:34:23 PM Interpretation: Performing Lab:[facility], [address] [place] [address] Notes/Report: White Blood Count 5.4 4.8-10.8 X10*3/uL [...] te Reviewed date:08/10/2024 06:09:31 PM Interpretation: Performing Lab:[address] [address] Notes/Report: Erythrocyte Sedimentation Rate 38 0-15 MM/HR Patients with polycythemia and many hemoglobin abnormalities may have depressed sed rates whereas patients with anemia may have elevated sed rates. Liver Panel Reviewed date:08/10/2024 06:09:21 PM Interpretation: Performing Lab:[address] [address] Notes/Report: Bilirubin Total 0.3 0.0-1.0 mg/dL Bilirubin Direct 0.1 0.0-0.5 mg/dL Aspartate Amino Transferase 19 5-37 U/L Alanine Aminotransferase 17 0-40 U/L Total Protein 7.3 6.5-8.0 g/dL Albumin Level 3.8 3.5-5.0 g/dL Alkaline Phosphatase 105 39-117 U/L Basic Metabolic Panel Reviewed date:08/10/2024 06:09:03 PM Interpretation: Performing Lab:[address] [address] Notes/Report: Sodium 139 135-145 mmol/L Potassium 4.1 [...] PROFILE Reviewed date:08/10/2024 06:08:36 PM Interpretation: Performing Lab:[address] [address] Notes/Report: Iron 12 45-160 mcg/dL Total Iron Binding Capacity 467 228-428 mcg/dL Percent Iron Saturation 3 15-50 % Unsaturated Iron Binding 455 Ferritin Reviewed date:08/10/2024 06:08:18 PM Interpretation: Performing Lab:[address] [place] [address] Notes/Report: Ferritin 7 20-250 ng/mL C Reactive Protein Reviewed date:08/10/2024 06:08:07 PM Interpretation: Performing Lab:[facility], [address] [place] [address] Notes/Report: C Reactive Protein 0.28 < or = 0.50 mg/dL Vitamin B12 Reviewed date:08/10/2024 04:20:38 PM Interpretation: Performing Lab:[facility], [address] [place] [address] Notes/Report: Vitamin B12 802 200-900 pg/mL NORMAL 200-900 PG/ML INDETERMINATE 160-199 PG/ML DEFICIENT < 160 PG/ML Pathology Reviewed date:08/30/2024 06:32:21 PM Interpretation: Performing Lab:[facility], [address] [place] [address] Notes/Report: Complete Blood Count Auto Di ff Reviewed date:02/25/2025 11:44:52 PM Interpretation: Performing Lab:[facility], [address] [place] [address] Notes/Report: White Blood Count 6.5 4.8-10.8 X10*3/uL [...] PROFILE Reviewed date:09/24/2024 11:13:18 PM Interpretation: Performing Lab:[facility], [address] [place] [address] Notes/Report: Iron 36 45-160 mcg/dL Total Iron Binding Capacity 424 228-428 mcg/dL Percent Iron Saturation 8 15-50 % Unsaturated Iron Binding 388 Ferritin Reviewed date:09/22/2024 10:10:47 PM Interpretation: Performing Lab:[facility], [address] [place] [address] Notes/Report: Ferritin 28 20-250 ng/mL Complete Blood Count Auto Di ff Reviewed date:02/25/2025 11:44:38 PM Interpretation: Performing Lab:[facility], [address] [place] [address] Notes/Report: White Blood Count 5.4 4.8-10.8 X10*3/uL [...] te Reviewed date:02/16/2025 09:16:23 PM Interpretation: Performing Lab:[address] [address] Notes/Report: Erythrocyte Sedimentation Rate 10 0-15 MM/HR Patients with polycythemia and many hemoglobin abnormalities may have depressed sed rates whereas patients with anemia may have elevated sed rates. Liver Panel Reviewed date:02/16/2025 09:16:12 PM Interpretation: Performing Lab:[address] [address] Notes/Report: Bilirubin Total 0.4 0.0-1.0 mg/dL Bilirubin Direct 0.1 0.0-0.5 mg/dL Aspartate Amino Transferase 35 5-37 U/L Alanine Aminotransferase 36 0-40 U/L Total Protein 7.2 6.5-8.0 g/dL Albumin Level 4.1 3.5-5.0 g/dL Alkaline Phosphatase 129 39-117 U/L Basic Metabolic Panel Reviewed date:02/16/2025 09:15:49 PM Interpretation: Performing Lab:[address] [address] Notes/Report: Sodium 141 135-145 mmol/L Potassium 4.4 [...] PROFILE Reviewed date:02/25/2025 11:44:25 PM Interpretation: Performing Lab:[facility], [address] [place] [address] Notes/Report: Iron 33 45-160 mcg/dL Total Iron Binding Capacity 399 228-428 mcg/dL Percent Iron Saturation 8 15-50 % Unsaturated Iron Binding 366 C Reactive Protein Reviewed date:02/16/2025 09:15:00 PM Interpretation: Performing Lab:[facility], [address] [place] [phone] Notes/Report: C Reactive Protein 0.12 < or = 0.50 mg/dL Reason For Referral No Information Medications Medication SIG (Take, Route, Frequency, Duration) Notes Start Date End Date Status Folic Acid 1 MG 1 tablet Orally Once a day; Duration: 30 days 03/08/2025 Active Valsartan 40 MG TAKE 1 TABLET BY MOUTH EVERY DAY Oral; Duration: 30 Active Omeprazole 40 MG TAKE 1 CAPSULE BY MOUTH EVERY DAY; Duration: 90 Active Vitamin D 50 MCG (2000 UT) 1 tablet Orally Once a day Active Folic Acid 1 MG 1 tablet Orally Once a day 12/05/2023 Active Atenolol 25 MG 1 tablet Orally Once a day; Duration: 30 day(s) 11/30/2023 Active Amoxicillin 500 MG 2 Orally Twice a [...] 1 tablet Orally twice a day Active Immunizations Vaccine Route Administration Date Status [...] W/U Status Risk Notes Problem Rectal bleeding (12760986) Rectal bleeding (K62.5) Active confirmed Problem History of adenomatous polyp of colon (330141748) History of adenomatous polyp of colon (Z86.010) Active confirmed Problem Constipation (46277033) Constipation (K59.00) Active confirmed Problem Diarrhea (25627742) Diarrhea (R19.7) Active con firmed Problem Imaging of gastrointestinal tract abnormal (154335533) Abnormal findings on diagnostic imaging of other parts of digestive tract (R93.3) Active confirmed Problem Helicobacter pylori (69983219) Helicobacter pylori [H. pylori] as the cause of diseases classified elsewhere (B96.81) Active confirmed Problem Diverticular disease of colon (370823526) Diverticulosis of large intestine without perforation or abscess without bleeding (K57.30) Active confirmed Problem Abnormal weight loss (526677571) Abnormal weight loss (R63.4) Active confirmed Problem Duodenitis (33679978) Duodenitis (K29.80) Active confirmed Problem Hemorrhage of rectum and anus (214672488) Rectal bleed (K62.5) Active confirmed Problem Anemia (879225811) Anemia (D64.9) Active confir med Problem Iron deficiency anemia due to chronic blood loss (450237966) 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) Active confirmed Problem Peptic ulcer disease (29571540) Peptic ulcer disease (K27.9) Active confirmed Problem Chronic gastric ulcer (60493680) Chronic gastric ulcer (K25.7) Active confirmed Problem Chronic diarrhea (069276866) Chronic diarrhea (K52.9) Active confirmed Problem Gastric ulcer (418818429) Gastric ulcer (K25.9) Active confirmed Problem Duodenal ulcer disease (98410559) Duodenal ulcer disease (K26.9) Active confirmed Problem Weight decreased (288088277) Loss of weight (R63.4) Active confirmed Problem Gastroesophageal reflux disease with esophagitis (disorder) (323875270) Gastroesophageal reflux disease with esophagitis without hemorrhage (K21.00) Active confirmed Vital Signs Blood pressure diastolic 111 mm Hg 08/30/2024 Height 71 in 08/30/2024 Blood pressure systolic 111 mm Hg 08/30/2024 Weight 174 lbs 08/30/2024 BMI 24.27 kg/m2 08/30/2024 Procedures Procedure Date Ordered Date Performed Result Body Sit e UPPER GI ENDOSCOPY 07/24/2024 N/A COLONOSCOPY 07/24/2024 N/A Encounters Encounter Location Date Provider Diagnosis [facility] [address] [place] [id number] 08/23/2024 Waqas Diaz Rectal bleed K62.5 ; 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 ; Diverticulosis of large intestine without perforation or abscess without bleeding K57.30 ; Other hemorrhoids K64.8 ; Hiatal hernia K44.9 and Gastro-esophageal reflux disease without esophagitis K21.9 [facility] [address] [place] [address] 08/30/2024 Waqas Diaz Rectal bleed K62.5 ; Iron deficiency anemia due to chronic blood loss D50.0 ; Abnormal weight loss R63.4 ; Gastric ulcer K25.9 and Constipation K59.00 [facility] [address] [place] [phone] 06/21/2024 Waqas Diaz Diarrhea R19.7 ; Rec keeley bleeding K62.5 and Folate deficiency E53.8 [facility] [address] [place] [phone] 07/04/2024 Waqas Diaz [facility] [address] [place] [phone] 07/24/2024 Waqas Diaz Diarrhea R19.7 ; Rec keeley bleeding K62.5 ; Anemia D64.9 and Peptic ulcer disease K27.9 [facility] [address] [place] [phone] 08/21/2024 Waqas Diaz [facility] [address] [place] [phone] 08/30/2024 Waqas Diaz [facility] [address] [place] [phone] 09/02/2024 Waqas Diaz [facility] [address] [place] [phone] 11/12/2024 Waqas Diaz [facility] [address] [place] [phone] 02/11/2025 Waqas Emily Rectal bleeding K62. 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 I will send over prescriptions to treat the H.pylori if the final report is positive. This will switch you to the 20mg omeprazole twice a day. After the two week treatmernt then stay on omeporazole 20mg fci for now. Overall, Heath currently appears quite [...] ENDOSCOPY 07/24/2024 COLONOSCOPY 07/24/2024 CHEM 7 PROFILE 02/11/2025 CHEM 7 PROFILE 06/21/2024 CHEM 7 PROFILE 11/30/2023 CHEM 7 PROFILE 12/20/2023 CHEM 7 PROFILE 07/24/2024 LIVER PROFILE 02/11/2025 LIVER PROFILE 06/21/2024 LIVER PROFILE 11/30/2023 IRON + IBC (FE) 08/30/2024 IRON + IBC (FE) 02/11/2025 IRON + IBC (FE) 11/30/2023 CRP 06/21/2024 CRP 02/11/2025 CRP 07/24/2024 CRP 11/30/2023 VITAMIN B12 AND FOLATE 11/30/2023 CBC w DIFF 07/24/2024 CBC w DIFF 08/30/2024 CBC w DIFF 11/30/2023 CBC w DIFF 06/21/2024 CBC w DIFF 02/11/2025 SED RATE (ESR) 06/21/2024 SED RATE (ESR) 02/11/2025 SED RATE (ESR) 07/24/2024 SED RATE (ESR) 11/30/2023 STOOL WBC 12/20/2023 [...] Name:Waqas Diaz , 06/19/2025 03:40:00 PM, [address], [address], [place], [address], Insurance Providers Payer Name Payer Address Payer Phone Subscriber Number Group Number Insured Name Patient Relationship to Insured Coverage Start Date Coverage End Date [facility] [address] [place] [address] [id number] JOSE WINSLOW Self - patient is the insured Medical (General) History Medical History History ICD Code Mitral valve insufficiency-- scheduled for surgery for a mitral valve repair at [facility] on [place]/2024--has initially been seeing Dr. Doherty but was then referred to [facility] for his surgery HTN Denies SD,DM,CVA,Lung disease,renal dise ase Chronic diarrhea-colonoscopy as below--negative [...] on 12/[address] scan at [facility]--- this appears to be an incidental finding as he is asymptomatic in that regard-reviewed with patient at the 03/01/24 OV Surgical History Surgery Date(Month/Year)
--- OUTSIDE RECORDS SUMMARY | 2025-03-27 16:50 | XMS_ITS | Encounter Summary ---
Author Organization [facility] Address [address] [facility] [address] [place] [address] Phone Care Team Providers Care Appellate Law Clerk Name Role Phone Faye Avelar MD Primary Care Provider Shagufta Bhakta MD, PhD Unavailable [phone] Waqas Diaz MD Unavailable [phone] Encounter Details Date Type Department Care Team (Late st Contact Info) Description 06/26/2024 Procedure Pass [facility] PERI[facility]IVE [facility]PT [address] [place] [phone] Social History Tobacco Use Types Packs/Day Years [...] Description 04/03/2025 11:30 AM EST Office Visit [facility] Division of Cardiac Surgery [address] [facility], 6th Floor, [address] [place] [address] Natalie Acosta MD [address] [place] [address] [email or web address] 04/03/2025 1:30 PM EST Office Visit [facility] [address] [facility], 5th Floor, [address] [place] [address] Shagufta Bhakta MD, PhD [address] [facility] [address] [place] [address] [email or web address] documented as of this encounter Visit Diagnoses Not on filedocumented in this encounter Care Teams Appellate Law Clerk Relationship Specialty Start Date End Date Faye Avelar MD [address] [facility] [address] [place] [address] PCP - General Internal Medicine 09/19/23 Shagufta Bhakta MD, PhD [address] [facility] [address] [place] [address] [email or web address] Livestock Auctioneer Interventional Cardiology 10/11/23 Waqas Diaz MD [address] [place] [address] Gastroenterology 02/14/25 documented as of this encounter Additional Source Comments The information contained in this document represents components of the legal health record. It is not the complete legal health record.[facility]
--- OUTSIDE RECORDS SUMMARY | 2025-03-27 16:50 | XMS_ITS | Encounter Summary ---
Author Organization [facility] Address [address] [facility] [address] [place] [address] Phone Care Team Providers Care Software Program Manager Name Role Phone Faye Avelar MD Primary Care Provider Shagufta Bhakta MD, PhD Unavailable [phone] Waqas Diaz MD Unavailable [phone] Encounter Details Date Type Department Care Team ([facility] st Contact Info) Description 04/24/2024 Telephone VIRTUAL DEPARTMENT [address] [place] [phone] Natalie Acosta MD [address] [place] [address] [email or web address] Social History Tobacco Use Types Packs/Day [...] Description 04/03/2025 11:30 AM EST Office Visit [facility] Division of Cardiac Surgery [address] [facility], 6th Floor, [address] [place] [address] Natalie Acosta MD [address] [facility] [address] [place] [address] [email or web address] 04/03/2025 1:30 PM EST Office Visit [facility] [address] [facility], 5th Floor, [address] [place] [address] Shagufta Bhakta MD, PhD [address] [facility] [address] [place] [address] [email or web address] documented as of this encounter Visit Diagnoses Not on filedocumented in this encounter Care Teams Software Program Manager Relationship Specialty Start Date End Date Faye Avelar MD [address] [facility] [place] [address] PCP - General Internal Medicine 09/19/23 Shagufta Bhakta MD, PhD [address] [facility] [address] [place] [address] [email or web address] Product Control And Logistics Analyst Interventional Cardiology 10/11/23 Waqas Diaz MD [address] [place] [address] Drive [address] [place] [address] Gastroenterology 02/14/25 documented as of this encounter Additional Source Comments The information contained in this document represents components of the legal health record. It is not the complete legal health record.[facility]
--- OUTSIDE RECORDS SUMMARY | 2025-03-27 16:50 | XMS_ITS | Encounter Summary ---
Author Organization [facility] Address [address] [facility] [address] [place] [address] Phone Care Team Providers Care Polls Or Surveys Interviewer Name Role Phone Faye Avelar MD Primary Care Provider [phone] Shagufta Bhakta MD, PhD Unavailable [phone] Waqas Diaz MD Unavailable [phone] Encounter Details Date Type Department Care Team (Late st Contact Info) Description 09/22/2023 Procedure Pass [facility] [address] [place] [address] Social History Tobacco Use Types Packs/Day Years [...] Description 04/03/2025 11:30 AM EST Office Visit [facility] [place] of [place] Surgery [address] [facility], 6th Floor, [address] [place] [address] Natalie Acosta MD [address] [place] [address] [place] [address] [email or web address] 04/03/2025 1:30 PM EST Office Visit [facility] [address] [facility], 5th Floor, [address] [place] [address] Shagufta Bhakta MD, PhD [address] [facility] [address] [place] [address] [email or web address] documented as of this encounter Visit Diagnoses Not on filedocumented in this encounter Care Teams Polls Or Surveys Interviewer Relationship Specialty Start Date End Date Faye Avelar MD [address] [facility] [place] [address] PCP - General Internal Medicine 09/19/23 Shagufta Bhakta MD, PhD [address] [facility] [address] [place] [address] [email or web address] Laundry Aid Interventional Cardiology 10/11/23 Waqas Diaz MD [address] [place] [address] Gastroenterology 02/14/25 documented as of this encounter Additional Source Comments The information contained in this document represents components of the legal health record. It is not the complete legal health record.[facility]
--- OUTSIDE RECORDS SUMMARY | 2025-03-27 16:50 | XMS_ITS | Encounter Summary ---
Author Organization [facility] Address [address] [facility] [place] [address] Phone Care Team Providers Care Certified Pedorthotist Name Role Phone Faye Avelar MD Primary Care Provider [phone] Shagufta Bhakta MD, PhD Unavailable [phone] Waqas Diaz MD Unavailable [phone] Encounter Details Date Type Department Care Team (Late st Contact Info) Description 03/22/2025 Telephone [facility] Division of Cardiac Surgery [address] [facility], 6th Floor, [address] [place] [address] Panchito Stark, RATING CLERK [address] [facility] [address] [place] [phone] [email or web address] Social History Tobacco Use Types Packs/Day Years [...] Progress Notes * Panchito Stark CNP - 03/22/2025 4:38 PM EDT Patient called to go over his symptoms and ask if he would be on the amiodarone forever. I told thepatient that he would only be on the amiodarone until 03/29 at this time. Patient wanted to review his symptoms of dull pain around the incision sites on his R side. Patientwas told to use ice and lidocaine patches. Patient has been having difficulty sleeping. I suggested that the patient try sublingual melatonin as a sleep aid. If that doesn't work, I advised patient to reach out to his PCP for other sleep medications. We will see patient for post op visit next week. Yanick Stark CNP [facility] Cardiac Surgery documented in this encounter Plan of Treatment Upcoming Encounters Date Type Department Care Team (Late st Contact Info) Description 04/03/2025 11:30 AM EST Office Visit [facility] Division of Cardiac Surgery [address] [place] [address], 6th Floor, [address] [place] [address] Natalie Acosta MD [address] [place] [phone] [email or web address] 04/03/2025 1:30 PM EST Office Visit [facility] [address] [facility], 5th Floor, [address] [place] [address] Shagufta Bhakta MD, PhD 55 [facility] [address] [place] [address] DIANA@[email or web address] documented as of this encounter Visit Diagnoses Not on filedocumented in this encounter Care Teams Certified Pedorthotist Relationship Specialty Start Date End Date Faye Avelar MD [address] [facility] [place] [address] PCP - General Internal Medicine 09/19/23 Shagufta Bhakta MD, PhD 55 [facility] [address] [place] [address] DIANA@[email or web address] Regional Account Manager Interventional Cardiology 10/11/23 Waqas Diaz MD [address] [place] [address] [address] [place] [address] Gastroenterology 02/14/25 documented as of this encounter Additional Source Comments The information contained in this document represents components of the legal health record. It is not the complete legal health record.[facility]
--- OUTSIDE RECORDS SUMMARY | 2025-03-27 16:50 | XMS_ITS | Encounter Summary ---
Author Organization [facility] Address [address] [facility] [address] [place] [address] Phone Care Team Providers Care Conservation Policy Analyst Name Role Phone Faye Avelar MD Primary Care Provider [phone] Shagufta Bhakta MD, PhD Unavailable [phone] Waqas Diaz MD Unavailable [phone] Encounter Details Date Type Department Care Team ([facility] st Contact Info) Description 11/29/2024 Telephone VIRTUAL DEPARTMENT [address] [place] [phone] Natalie Acosta MD [address] [place] [address] [email or web address] Social History Tobacco Use Types Packs/Day Years [...] Description 04/03/2025 11:30 AM EST Office Visit [facility] Division of Cardiac Surgery [address] [facility], 6th Floor, [address] [place] [address] Natalie Acosta MD 55 [facility] 630 [place] [address] [email or web address] 04/03/2025 1:30 PM EST Office Visit [facility] [address] [facility], 5th Floor, [address] [place] [address] Shagufta Bhakta MD, PhD 55 [facility] [address] [place] [address] DIANA@[email or web address] documented as of this encounter Visit Diagnoses Not on filedocumented in this encounter Care Teams Conservation Policy Analyst Relationship Specialty Start Date End Date Faye Avelar MD [address] [facility] [place] [address] PCP - General Internal Medicine 09/19/23 Shagufta Bhakta MD, PhD 55 [facility] 800 [place] [address] DIANA@[email or web address] [employer] Software Interventional Cardiology 10/11/23 Waqas Diaz MD [address] [place] [address] Drive [address] [place] [address] Gastroenterology 02/14/25 documented as of this encounter Additional Source Comments The information contained in this document represents components of the legal health record. It is not the complete legal health record.[facility]
--- OUTSIDE RECORDS SUMMARY | 2025-03-27 16:50 | XMS_ITS | Encounter Summary ---
Author Organization [facility] Address [address] [facility] [address] [place] [address] Phone Care Team Providers Care Studio Operations Manager Name Role Phone Faye Avelar MD Primary Care Provider [phone] Shagufta Bhakta MD, PhD Unavailable [phone] Waqas Diaz MD Unavailable [phone] Encounter Details Date Type Department Care Team ([facility] st Contact Info) Description 03/27/2024 Telephone VIRTUAL DEPARTMENT [address] [place] [phone] Natalie Acosta MD [address] [place] [address] [email or web address] [email or web address] Social History Tobacco Use Types Packs/Day Years [...] Description 04/03/2025 11:30 AM EST Office Visit [facility] [place] Division of Cardiac Surgery [address] [facility], 6th Floor, [address] [place] [address] Natalie Acosta MD 55 [facility] 630 [place] [address] [email or web address] [email or web address] 04/03/2025 1:30 PM EST Office Visit [facility] [address] [facility], 5th Floor, [address] [place] [address] Shagufta Bhakta MD, PhD [address] [facility] 800 [place] [address] DIANA@[email or web address] documented as of this encounter Visit Diagnoses Not on filedocumented in this encounter Care Teams Studio Operations Manager Relationship Specialty Start Date End Date Faye Avelar MD [address] [facility] [place] [address] PCP - General Internal Medicine 09/19/23 Shagufta Bhakta MD, PhD [address] [facility] 800 [place] [address] DIANA@[email or web address] Sr Account Executive Interventional Cardiology 10/11/23 Waqas Diaz MD [address] [place] [address] Drive [address] [place] [address] Gastroenterology 02/14/25 documented as of this encounter Additional Source Comments The information contained in this document represents components of the legal health record. It is not the complete legal health record.[facility]
--- OUTSIDE RECORDS SUMMARY | 2025-03-27 16:50 | XMS_ITS | Encounter Summary ---
Author Organization [facility] Address [address] [facility] [address] [place] [address] Phone Care Team Providers Care Suede Cleaner Name Role Phone Faye Avelar MD Primary Care Provider [phone] Shagufta Bhakta MD, PhD Unavailable [phone] Waqas Diaz MD Unavailable [phone] Encounter Details Date Type Department Care Team (Late st Contact Info) Description 10/02/2024 Procedure Pass [facility] PERIOPERATIVE DEPT [address] [place] [phone] Social History Tobacco Use Types Packs/Day Years [...] Description 04/03/2025 11:30 AM EST Office Visit [facility] Division of Cardiac Surgery [address] [facility], 6th Floor, [address] [place] [address] Natalie Acosta MD [address] [place] [address] JAYSHREE@[email or web address] 04/03/2025 1:30 PM EST Office Visit [facility] [address] [facility], 5th Floor, [address] [place] [address] Shagufta Bhakta MD, PhD [address] [facility] [address] [place] [address] DIANA@[email or web address] documented as of this encounter Visit Diagnoses Not on filedocumented in this encounter Care Teams Suede Cleaner Relationship Specialty Start Date End Date Faye Avelar MD [address] [facility] [place] [address] PCP - General Internal Medicine 09/19/23 Shagufta Bhakta MD, PhD [facility] [address] [place] [address] DIANA@[facility] Electrical Journeyman Interventional Cardiology 10/11/23 Waqas Diaz MD [address] [place] [address] Gastroenterology 02/14/25 documented as of this encounter Additional Source Comments The information contained in this document represents components of the legal health record. It is not the complete legal health record.[facility]
--- OUTSIDE RECORDS SUMMARY | 2025-03-27 16:50 | XMS_ITS | Encounter Summary ---
Author Organization [facility] Address [address] [employer] [address] [place] [address] Phone Care Team Providers Care Stock Control Supervisor Name Role Phone Faye Avelar MD Primary Care Provider [phone] Shagufta Bhakta MD, PhD Unavailable [phone] Waqas Diaz MD Unavailable [phone] Encounter Details Date Type Department Care Team (Late st Contact Info) Description 09/11/2024 Procedure Pass [facility] [place] [address] [place] [address] Social History Tobacco Use Types Packs/Day Years [...] Description 04/03/2025 11:30 AM EST Office Visit [facility] Division of Cardiac Surgery [address] [facility], 6th Floor, [address] [place] [address] Natalie Acosta MD [address] [place] [address] [email or web address] 04/03/2025 1:30 PM EST Office Visit [facility] [address] [facility], 5th Floor, [address] [place] [address] Shagufta Bhakta MD, PhD [facility] [address] [place] [address] DIANA@[email or web address] documented as of this encounter Visit Diagnoses Not on filedocumented in this encounter Care Teams Stock Control Supervisor Relationship Specialty Start Date End Date Faye Avelar MD [address] [facility] [place] [address] PCP - General Internal Medicine 09/19/23 Shagufta Bhakta MD, PhD 55 [facility] [address] [place] [address] DIANA@[email or web address] Clinical Provider Trainer Interventional Cardiology 10/11/23 Waqas Diaz MD [address] [place] [address] Gastroenterology 02/14/25 documented as of this encounter Additional Source Comments The information contained in this document represents components of the legal health record. It is not the complete legal health record.[facility]
== END 2025-03-27 14:34 | disposition home or self-care (01) ==
LOC: HO.HMCC 13:49
PROVIDERS: PCP Internal Medicine; Visit Provider Internal Medicine
DX: D50.9 Iron deficiency anemia, unspecified (principal); Z98.890 Other specified postprocedural states; R23.8 Other skin changes; F51.04 Psychophysiologic insomnia; F41.8 Other specified anxiety disorders; R79.89 Other specified abnormal findings of blood chemistry; R53.83 Other fatigue

== ENCOUNTER 2025-04-03 20:15 | Emergency (ER) | payer BC, SELFPAY ==
--- OUTSIDE RECORDS SUMMARY | 2024-01-13 08:40 | XMS_ITS ---
Author Organization [facility] Address [address] [place] [address] Care Team Providers Care Cold Working Supervisor Name Role Phone Valentino HATCH, Faye Primary Care Provider Waqas Cash [phone] REASON FOR VISIT chronic diarrhea, abnormal weight loss, abnormal findings on diagnostic imaging Encounters Encounter Location Date Provider Diagnosis [facility] [place] [address] [place] [id number] 01/13/2024 Waqas Diaz Plan Of Treatment Next Appt Details Provider Name:Waqas Diaz , 06/19/2025 03:40:00 PM, [address], [address], [place], [address], Progress Notes * JOSE WINSLOWDOB: [birth year] (50 yo M)Acc No.[id number]:01/13/2024 EGD/MAC Patient: N ARELY JOSE Baez Provider: Jimena Diaz MD :1975 A ge:48 Y S ex:Male Date:01/13/2024 Address:[address] [id number] Pcp:Faye Avelar MD Subjective: * Chief Complaints: * 1 . Chronic diarrhea, abnormal weight loss, abnormal findings on diagnostic imaging. * Medical History: Objective: * Vitals: Assessment: Plan: * Treatment: * * The named appointment provid er may or may not be the originator of this progress note, and it is not deemed complete until electronically signed by the appointment provider. Sign off status: Pending * Provider: Jimena Diaz MD Date: 0 01/13/2024 Generated for Blanca lou/Ariel/Malyl on: 1 06/03/2024 08:40 PM EST
--- OUTSIDE RECORDS SUMMARY | 2024-01-18 06:30 | XMS_ITS ---
Author Organization [facility] Address [address] [place] [address] Care Team Providers Care Rn Transition Name Role Phone Valentino HATCH, [facility] Primary Care Provider Waqas Cash [phone] REASON FOR VISIT chronic diarrhea, abnormal weight loss, abnormal findings on diagnostic imaging Problems Problem Type SNOMED Code ICD Code Onset Dates Problem Status W/U Status Risk Notes Problem Gastroesophageal reflux disease with esophagitis (disorder) (953627258) Gastroesophageal reflux disease with esophagitis without hemorrhage (K21.00) Active confirmed Problem Duodenitis (71833939) Duodenitis (K29.80) Active confirmed Problem Duodenal ulcer disease (04960041) Duodenal ulcer disease (K26.9) Active confirmed Problem Gastric ulcer (134460788) Gastric ulcer (K25.9) Active confirmed Encounters Encounter Location Date Provider Diagnosis [facility] [place] [address] [place] [id number] 01/18/2024 Waqas Diaz Gastroesophageal ref lux disease with esophagitis without hemorrhage K21.00 ; Duodenitis K29.80 ; Duodenal ulcer disease K26.9 ; Gastric ulcer K25.9 ; Hiatal hernia K44.9 ; Abn findings-GI tract R93.3 and Weight loss R63.4 Assessments Encounter Date Diagnosis (ICD Code) Assessment Notes Treatment Notes Treatment Clinical Notes Section Notes 01/18/2024 Gastroesophageal reflux disease with esophagitis without hemorrhage (ICD-10 - K21.00) 01/18/2024 Duodenitis (ICD-10 - K29.80) 01/18/2024 Duodenal ulcer disease (ICD-10 - K26.9) 01/18/2024 Gastric ulcer (ICD-10 - K25.9) 01/18/2024 Hiatal hernia (ICD-10 - K44.9) 01/18/2024 Abn findings-GI tract (ICD-10 - R93.3) 01/18/2024 Weight loss (ICD-10 - R63.4) Plan Of Treatment Next Appt Details Provider Name:Waqas Diaz , 06/19/2025 03:40:00 PM, [address], [address], [place], [address], Progress Notes * GOLDYJOCELINJOSE JDOB: [birth year] (50 yo M)Acc No.[id number]:01/18/2024 EGD/MAC Patient: JOSE CHING Provider: Jimena Diaz MD :1975 A ge:48 Y S ex:Male Date:01/18/2024 Address:[address] [place] [address] Pcp:Faye Avelar MD Subjective: * Chief Complaints: * 1 . Chronic diarrhea, abnormal weight loss, abnormal findings on diagnostic imaging. * Medical History: Objective: * Vitals: Assessment: * Assessment: 1. G astroesophageal reflux disease with esophagitis without hemorrhage - K21.00 (Primary) 2 . D uodenitis - K29.80 3 . D uodenal ulcer disease - K26.9? 4. G astric ulcer - K25.9 5 . H iatal hernia - K44.9 & #160; 6 . A bn findings-GI tract - R93.3 7 . W eight loss - R63.4 ? Plan: * Treatment: * Procedure Codes: 4 3239 UPPER GI ENDOSCOPY, BIOPSY * * The named appointment provid er may or may not be the originator of this progress note, and it is not deemed complete until electronically signed by the appointment provider. Sign off status: Pending * Provider: Jimena Diaz MD Date: 0 01/18/2024 Generated for Jonathani ng/Fadavidg/eTransmitting on: 1 06/03/2024 08:40 PM EST
--- OUTSIDE RECORDS SUMMARY | 2024-08-09 09:00 | XMS_ITS ---
Author Organization [facility] Address [address] [place] [address] Care Team Providers Care Power Lineworker Name Role Phone Valentino HATCH, Faye Primary Care Provider Waqas Cash [phone] Encounters Encounter Location Date Provider Diagnosis [facility] Outpatient [address] [place], [place] [phone] 08/09/2024 Waqas Diaz Plan Of Treatment Next Appt Details Provider Name:Waqas Diaz , 06/19/2025 03:40:00 PM, [address], [address], [place], [address], Progress Notes * JOSE WINSLOWDOB: [birth year] (50 yo M)Acc No.[id number]:08/09/2024 COLON WITH MAC Patient: Codey MCGEE JOSE Baez Provider: Jimena Diaz MD :1975 A ge:49 Y S ex:Male Date:08/09/2024 Address:[id number] Pcp:Faye Avelar MD Subjective: * Chief Complaints: [...] 08/09/2024 Generated for Blanca lou/Ariel/Mally on: 1 06/03/2024 03:04 PM EST
--- OUTSIDE RECORDS SUMMARY | 2024-08-23 09:30 | XMS_ITS ---
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 ; Diverticulosis of large intestine without perforation or abscess without bleeding K57.30 ; Other hemorrhoids K64.8 ; Hiatal hernia K44.9 and Gastro-esophageal reflux disease without esophagitis K21.9 Assessments Encounter Date Diagnosis (ICD Code) Assessment Notes Treatment Notes Treatment Clinical Notes Section Notes 08/23/2024 Rectal bleed (ICD-10 - K62.5) 08/23/2024 Iron 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 (chronic) (ICD-10 - D50.0) 08/23/2024 Diverticulosis of large intestine without perforation or abscess without bleeding (ICD-10 - K57.30) 08/23/2024 Other hemorrhoids (ICD-10 - K64.8) 08/23/2024 Hiatal hernia (ICD-10 - K44.9) 08/23/2024 Gastro-esophageal reflux disease without esophagitis (ICD-10 - K21.9) Plan Of Treatment Next Appt Details Provider Name:Waqas Diaz , 06/19/2025 03:40:00 PM, [address], [address], [place], [address], Progress Notes * JOSE WINSLOW JDOB: [birth year] (50 yo M)Acc No.[id number]:08/23/2024 EGD and COL/MAC Patient: JOSE CHING Provider: Jimena Diaz MD :1975 A ge:49 Y S ex:Male Date:08/23/2024 Address:[address] [place] [address] [id number] Pcp:Faye Avelar MD Subjective: * Chief Complaints: * 1 . Diarrhea,anemia, rectal bleeding ,peptic ulcer. * Medical History: Objective: * Vitals: Assessment: * Assessment: 1. R ectal bleed - K62.5 (Primary) 2 . I radha 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 (chronic) - D50.0 3 . D iverticulosis of large intestine without perforation or abscess without bleeding - K57.30 4 . O ther hemorrhoids - K64.8 5. H iatal hernia - K44.9 6 . G ba-esophageal reflux disease without esophagitis - K21.9 Plan: * Treatment: * Procedure Codes: 4 5380 COLONOSCOPY AND BIOPSY, 13697 UPPER GI ENDOSCOPY, BIOPSY * * The named appointment provid er may or may not be the originator of this progress note, and it is not deemed complete until electronically signed by the appointment provider. Sign off status: Pending * Provider: Jimena Diaz MD Date: 0 08/23/2024 Generated for Blanca lou/Ariel/eTransmitting on: 06/03/2024 03:04 PM EST
--- OUTSIDE RECORDS SUMMARY | 2025-03-05 05:20 | XMS_ITS ---
Author Organization [facility] Address [address] [place] [address] Care Team Providers Care Electorate Officer Name Role Phone Valentino HATCH, Faye Primary Care Provider Waqas Cash [phone] REASON FOR VISIT Patient presents today for anemia Encounters Encounter Location Date Provider Diagnosis [facility] [address] [place] [address] 03/05/2025 Waqas Diaz Plan Of Treatment Next Appt Details Provider Name:Waqas Diaz , 06/19/2025 03:40:00 PM, [address], [address], [place], [address], Progress Notes * JOSE WINSLOWDOB: [birth year] (50 yo M)Acc No.[id number]:03/05/2025 Progress Notes Patient: JOCELIN CHINGESMER Baez Provider: Jimena Diaz MD :1975 A ge:50 Y S ex:Male Date:03/05/2025 [id number] Pcp:Faye Avelar MD Subjective: * Chief Complaints: [...] Date: 1 Generated for Blanca lou/Ariel/Mally on: 06/03/2024 03:04 PM EST
--- NOTE | 2025-04-03 | ECG_ITS ---
Test Reason : cp Blood Pressure : */* mmHG Vent. Rate : 103 BPM Atrial Rate : 103 BPM P-R Int : 152 ms QRS Dur : 82 ms QT Int : 400 ms P-R-T Axes : 76 60 57 degrees QTcB Int : 524 ms Sinus tachycardia Possible Left atrial enlargement Nonspecific ST abnormality Prolonged QT Abnormal ECG No previous ECGs available Referred By: Generic ED Physician Electronically Signed By: FLORENCE JACKSON MD
--- NOTE | ~2025-04-03 | CT_ITS ---
CLINICAL HISTORY: chest pain, recent mitral valve surgery CT angiography chest with contrast. MIP postprocessing. Comparison: CR - XR CHEST 1V - 04/03/25 21:16 EST Findings: Thoracic aorta is of normal caliber. No dissection or aneurysmal dilatation seen. Proximal great vessels are unremarkable. No contrast is seen within the pulmonary arteries. No pathologically enlarged mediastinal, hilar, or axillary lymph nodes identified. Trace pericardial effusion. Small right pleural effusion with likely dependent atelectasis within the right lower lobe. No left pleural effusion is seen. Linear areas of likely scarring or atelectasis are seen within the right middle lobe. No free fluid or free air within the upper abdomen. Air-filled distention of the mid to distal esophagus. Gallbladder is contracted. No acute bony abnormality. IMPRESSION: 1. Unremarkable CT angiogram of the thoracic aorta. 2. Small right pleural effusion with likely dependent atelectasis within the right lower lobe. This document has been electronically signed by: Ravin Landry MD on 04/04/2025 03:12:53
--- NOTE | ~2025-04-03 | XR_ITS ---
CLINICAL HISTORY: sob 1 view chest x-ray Comparison: CR/SR - XR CHEST 2 VIEWS - 01/17/25 14:12 EDT Findings: Mild pulmonary vascular congestion. Right mid lung linear atelectasis versus trace fluid in the right minor fissure. No consolidation or pneumothorax. Normal heart size. Cardiac valve prosthesis. No acute fracture. IMPRESSION: 1. Mild pulmonary vascular congestion. 2. Right mid lung linear atelectasis versus trace fluid in the right minor fissure. This document has been electronically signed by: Eliu Skinner MD on 04/03/2025 21:56:21
--- OUTSIDE RECORDS SUMMARY | 2025-04-03 10:25 | XMS_ITS | Encounter Summary ---
Author Organization [facility] Address [address] [facility] [address] [place] [address] Phone Care Team Providers Care Pile Header Name Role Phone Faye Avelar MD Primary Care Provider Shagufta Bhakta MD, PhD Unavailable [phone] Waqas Diaz MD Unavailable [phone] Encounter Details Date Type Department Care Team (Late st Contact Info) Description 04/03/2025 10:25 AM EST Hospital Encounter [facility] Saskia - SarinaShelton shultz [address] [place] [address], 2nd [place] [address] Gonzalo Parsons PA-C [address] [place] [address] [email or web address] rg Arrived Social History Tobacco Use Types Packs/Day Years [...] Team (Late st Contact Info) Description 04/03/2025 Procedure Pass [facility] Holter Lab [address] [place] [address], 5th Floor, [address] [place] [address] 04/03/2025 Procedure Pass [facility] Cardiology [address] [facility], [address] [place] [address] 06/06/2025 8:30 AM EST [facility] [address] [place] [address], 5th Floor, [address] [place] [address] Shagufta Bhakta MD, PhD [address] [address] [email or web address] balta 06/21/2025 8:00 AM EST Appointment [facility] Cardiology [address] [facility], [address] [place] [address] Shagufta Bhakta MD, PhD [address] [address] DIANA@[email or web address] balta documented as of this encounter Procedures Procedure Name Priority Date/Time Associated Diagnosis Comments XR CHEST PA AND LATERAL 2 VIEWS Routine 04/03/2025 10:32 AM EST Mitral valve insufficiency, unspecified etiology documented in this encounter Results * XR CHEST PA AND LATERAL 2 VIEWS (04/03/2025 10:32 AM EST) Anatomical Region Laterality Modality Chest Computed Radiogr aphy 04/03/2025 11:0 2 AM EST Impressions 04/03/2025 11:04 AM EST Minimal linear atelectasis in RIGHT mid and lower lung. Small RIGHT pleural effusion. No pneumothorax. No evidence of pulmonary edema. Status post robotic mitral valve repair. Narrative 04/03/2025 11:04 AM EST XR CHEST PA AND LATERAL 2 VIEWS Referring clinician's provided indication for this examination in [facility]: S/P Cardiac Surgery COMPARISON: XR CHEST PA AND LATERAL 2 VIEWS FINDINGS: Devices/Tubes/Lines: None. Lungs: Minimal linear atelectasis in the RIGHT mid and lower lung. LEFT lung is clear. Pleura: No pneumothorax. Small RIGHT pleural effusion. Heart/Mediastinum: Expected post-surgical changes following cardiac surgery. Status post robotic mitral valve repair. Bones/Soft Tissues: No significant skeletal abnormality. Procedure Note Martir Ugarte MD - 04/03/2025 XR CHEST PA AND LATERAL 2 VIEWS Referring clinician's provided indication for this examination in [facility]:S/P Cardiac Surgery COMPARISON: XR CHEST PA AND LATERAL 2 VIEWS FINDINGS: Devices/Tubes/Lines: None. Lungs: Minimal linear atelectasis in the RIGHT mid and lower lung. LEFTlung is clear. Pleura: No pneumothorax. Small RIGHT pleural effusion. Heart/Mediastinum: Expected post-surgical changes following cardiacsurgery. Status post robotic mitral valve repair. Bones/Soft Tissues: No significant skeletal abnormality. IMPRESSION: Minimal linear atelectasis in RIGHT mid and lower lung. Small RIGHT pleural effusion. No pneumothorax. No evidence of pulmonary edema. Status post robotic mitral valve repair. us Gonzalo Parsons PA-C IMG XR CHEST Final R esult documented in this encounter Visit Diagnoses Diagnosis Mitral valve insufficiency, unspecified etiology documented in this encounter Care Teams Pile Header Relationship Specialty Start Date End Date Faye Avelar MD [facility] [place] [address] PCP - General Internal Medicine 09/19/23 Shagufta Bhakta MD, PhD [address] [place] [address] [address] [place] [address] [email or web address] Research Intern Interventional Cardiology 10/11/23 Waqas Diaz MD [address] [place] [address] Drive [address] [place] [address] Gastroenterology 02/14/25 documented as of this encounter Additional Source Comments The information contained in this document represents components of the legal health record. It is not the complete legal health record.[facility]
--- OUTSIDE RECORDS SUMMARY | 2025-04-03 11:30 | XMS_ITS | Encounter Summary ---
Author Organization [facility] Address [address] [place] [address] Phone Care Team Providers Care Union Carpenter Name Role Phone Faye Avelar MD Primary Care Provider Shagufta Bhakta MD, PhD Unavailable [phone] Waqas Diaz MD Unavailable [phone] Encounter Details Date Type Department Care Team (Late st Contact Info) Description 04/03/2025 11:30 AM EST Office Visit [facility] Division of Cardiac Surgery [address] [place] [address], 6th Floor, [address] [place] [address] Natalie Acosta MD [address] [place] [address] [email or web address] Postop check (Primary Dx) Social History Tobacco Use Types Packs/Day Years [...] Sign Reading Time Taken Comments Blood Pressure 131/78 04/03/2025 11:30 AM EST Pulse 78 04/03/2025 11:30 AM EST Temperature 36.9 C (98.4 F) 04/03/2025 11:30 AM EST Respiratory Rate 20 04/03/2025 11:30 AM EST Oxygen Saturation 96% 04/03/2025 11:30 AM EST Inhaled Oxygen Concentration - - Weight 78.9 kg (174 lb) 04/03/2025 11:30 AM EST Height 177.8 cm (5' 10 ) 04/03/2025 11:30 AM EST Body Mass Index 24.97 04/03/2025 11:30 AM EST documented in this encounter Progress Notes * Nam Sena CNP - 04/03/2025 11:30 AM EST Images from the original note were not included. Division of Cardiac Surgery [address] [place] [address], [place] [address] Cardiac Surgery Routine Postoperative Visit 04/03/25 PCP Faye Avelar MD [facility] Dermatology Nurse Shagufta Bhakta MD, PhD Rodo Alcazaremiec is a 50 y.o. male with history of chronic diarrhea (undergoing a workup), former smoker (quit 2 weeks ago), HTN, peptic ulcer, iron deficiency anemia. He presents for routine 6 week postoperative visit. Admitted on 02/19/2025 and discharged on 02/26/2025. Procedure 02/19/2025 Robotic Mitral Valve Repair (32 mm Physio 1 Ring) Results for orders placed or performed during the hospital encounter of 02/19/25 (from the past 8760 hours) Anatomic Pathology (Non-MGB) Result Value Ref Range Report [address], [place] [address] Surgical Pathology Report Patient Name: RODO WINSLOW : 1975 (Age: 50) Sex: M Location: [place] [address] Institution: [facility] Date of Operation: 02/19/2025 Date of Reported: 02/25/2025 11:18 Results To: Natalie Acosta MD, MPH FINAL PATHOLOGIC DIAGNOSIS: A. P2 CHORD AND LEAFLET: Myxomatous degeneration. Post op course (see discharge summary for full details) Immediately postoperatively he was admitted to the CSICU. He was weaned from sedation, awoke neurologically intact and was extubated. Pt was weaned from vasoactive medications and transferred to the step down floor on POD 3. Patient demonstrated clinical progression and was ready for discharge to home on POD 7. 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 Weaned off prior to discharge. - Developed AF POD 4, treated with Amiodarone. Converted to SB. Further amiodarone and beta blockade held given SB. Rates improved and beta blockade slowly introduced. Another episode of AF with RVR POD 6, treated with Amiodarone and Eliquis. Pt did convert to NSR but was having episodes of AF leafing up to d/c. - Pacing wires removed while in ICU. Interval Events Unremarkable Today/Subjective Today Rodo Winslow reports minimal sternal incision pain. Further denies CP, SOB, palpitations, N/V, lightheadedness/dizziness, and recent fever. Overall, he is recovering well. He has been walking daily 1-2 miles without SOB/NGUYEN or CP. He has agood appetite. Sleep has been off since discharge. He gets about 6 hours in total but has had some night waking. We discussed the use of OTC sleep aids and increasing his activity. He does report some right sided chest wall pain. He reports the pain has been aggravated by shirts and increasing his activity. We reviewed the use of Lidocaine, heat and/or ice. I reviewed the possibility to a trial of Gabapentin but the pt would like to hold off for now. Patient has not been readmitted to the hospital since DC. No Known Allergies Current Outpatient Medications Medication Instructions acetaminophen (TYLENOL) 325-650 mg, Oral, 3 times daily apixaban (ELIQUIS) 5 mg, Oral, 2 times daily aspirin 325 mg, Oral, Daily folic acid (FOLVITE) 1 MG tablet 1 tablet, Every morning lidocaine 4 % 2 patches, Transdermal, Every 24 hours metoprolol succinate (TOPROL-XL) 25 mg, Oral, 2 times daily omeprazole (PRILOSEC) 40 MG capsule 1 capsule, Daily Vitals: 04/03/25 1130 BP: 131/78 BP Location: Right arm Patient Position: Sitting Pulse: 78 Resp: 20 Temp: 36.9 ??C (98.4 ??F) SpO2: 96% Weight: 78.9 kg (174 lb) Height: 177.8 cm (5' 10 ) Physical Exam Constitutional: Appearance: Normal appearance. He is overweight. HENT: Head: Normocephalic. Eyes: Extraocular Movements: Extraocular movements intact. Pupils: Pupils are equal, round, and reactive to light. Cardiovascular: Rate and Rhythm: Normal rate and regular rhythm. Pulses: Normal pulses. Carotid pulses are 2+ on the right side and 2+ on the left side. Radial pulses are 2+ on the right side and 2+ on the left side. Dorsalis pedis pulses are 2+ on the right side and 2+ on the left side. Heart sounds: S1 normal and S2 normal. Pulmonary: Effort: Pulmonary effort is normal. Breath sounds: Normal breath sounds. Abdominal: General: Abdomen is flat. Bowel sounds are normal. Palpations: Abdomen is soft. Musculoskeletal: General: Normal range of motion. Cervical back: Normal range of motion. Skin: General: Skin is warm and dry. Capillary Refill: Capillary refill takes less than 2 seconds. Comments: Well healed right lateral chest wall incisions Neurological: General: No focal deficit present. Mental Status: He is alert. Psychiatric: Mood and Affect: Mood normal. Behavior: Behavior normal. Behavior is cooperative. DATA CXR 04/03/25 shows Minimal linear atelectasis in RIGHT mid and lower lung. Small RIGHT pleural effusion. No pneumothorax. No evidence of pulmonary edema. ASSESSMENT/PLAN The following instructions were discussed with patient. Activity - Right thoracotomy: No excessive right arm motion, heavy lifting for 6 weeks post op. - May swim or take a bath once incisions are healed without scabs or open areas. - May resume driving if doing so before surgery. If you had a stroke or seizure, you will need to discuss with your Neurologist before resuming driving. - Pacing wires removed while in ICU. - May attend cardiac rehab if indicated by your grief counselor. - Return to work plan: May return to work if able to maintain sternal precautions or when cleared from sternal precautions (<20 lbs for 3 months post-operatively) Anticoagulation - Eliquis for post op Atrial Fibrillation. Duration 3 months. After 3 months evaluate need for continued anticoagulation by primary grief counselor. Medications - Post op AF: continue Amiodarone for at least one month then discontinue unless in symptomatic AF,extended course, if warranted, to be determined by primary grief counselor - ASA 325 for 3 months for valves. Then OK to drop down to 81 - Beta-blockade: Toprol XL 25mg daily (recently decreased to daily given dizziness) Dental - Avoid dental work and routine cleanings for 6 months post op if no acute concerns. Lifelong antibiotic prophylaxis prior to all dental work (including cleanings) to help protect the valve/graft from potential bacterial infection. Prescription can be obtained from PCP, grief counselor or dentist. Follow Up - Emphasized the importance of weight management, exercise, medication compliance, smoking cessation, good diabetic control and medical follow up. - Continued PCP and cardiology follow up advised. Overall, Rodo Winslow is progressing well from a cardiac surgery standpoint. I discussed with patient returning care to PCP/cardiology. Thank you for letting us participate in his/her cardiac surgery care. Please reach out to us with any questions/concerns. Nam Sena, [employer] TOP INSTALLER-C MSN, AGACNP-BC, STAFF RN-C Cardiac Surgery (pager #[phone]) 04/03/2025 documented in this encounter Plan of Treatment Upcoming Encounters Date Type Department Care Team (Late st Contact Info) Description 04/03/2025 Procedure Pass [facility] Holter Lab [address] [facility], 5th Floor, [address] [place] [address] 04/03/2025 Procedure Pass [facility] Cardiology [address] [facility], [address] [place] [address] 06/06/2025 8:30 AM EST [facility] [address] [facility], 5th Floor, [address] [place] [address] Shagufta Bhakta MD, PhD [address] [facility] [address] [place] [address] [email or web address] 06/21/2025 8:00 AM EST Appointment [facility] [address] [facility], [address] [place] [address] Shagufta Bhakta MD, PhD [address] [address] [email or web address] documented as of this encounter Visit Diagnoses Diagnosis Postop check- Primary Follow-up examination, following unspecified surgery documented in this encounter Care Teams Union Carpenter Relationship Specialty Start Date End Date Faye Aevlar MD [facility] [place] [address] PCP - General Internal Medicine 09/19/23 Shagufta Bhakta MD, PhD [address] [address] [email or web address] Dermatology Nurse Interventional Cardiology 10/11/23 Waqas Diaz MD [address] [place] [address] Drive [address] [place] [address] Gastroenterology 02/14/25 documented as of this encounter Additional Source Comments The information contained in this document represents components of the legal health record. It is not the complete legal health record.[facility]
--- OUTSIDE RECORDS SUMMARY | 2025-04-03 13:30 | XMS_ITS | Encounter Summary ---
Author Organization [facility] Address [address] [address] Phone Care Team Providers Care Utility Repairer Name Role Phone Faye Avelar MD Primary Care Provider [phone] Shagufta Bhakta MD, PhD Unavailable [phone] Waqas Diaz MD Unavailable [phone] Reason for Referral * - New Request Specialty Diagnoses / Procedures Referred By Contac t Referred To Contact Diagnoses Paroxysmal atrial fibrillation Procedures Patch Monitor up to 15 days Shagufta Bhakta MD, PhD [address] [place] [address] Phone: tel: fax: mailto:[email or web address] Referral ID Status Reason Start Date Expiration Date V isits Requested Visits Authorized [id number] New Request 04/03/2025 1 1 * Cardiac Rehab (Within 2 weeks) - New Request Specialty Diagnoses / Procedures Referred By Contac t Referred To Contact Shagufta Bhakta MD, PhD [address] [address] Phone: tel: fax: mailto:[email or web address] Referral ID Status Reason Start Date Expiration Date V isits Requested Visits Authorized [id number] New Request 04/03/2025 04/03/2026 1 1 * Outpatient Procedure - New Request Specialty Diagnoses / Procedures Referred By Velma whittaker Referred To Contact Diagnoses Status post mitral valve repair Procedures Adult Echo TTE Shagufta Bhakta MD, PhD [address] [facility] [address] [place] [address] Phone: tel: fax: mailto:[email or web address] Referral ID Status Reason Start Date Expiration Date V isits Requested Visits Authorized [id number] New Request 04/03/2025 1 1 Encounter Details Date Type Department Care Team (Latest Contact Info) Description 04/03/2025 1:30 PM EST Office Visit [facility] [address] [place] [address], 5th Floor, [address] [place] [address] Shagufta Bhakta MD, PhD [address] [place] [address] [email or web address] S/P mitral valve repair (Primary Dx); Status post mitral valve repair; Paroxysmal atrial fibrillation Social History Tobacco Use Types Packs/Day Years [...] Sign Reading Time Taken Comments Blood Pressure 132/74 04/03/2025 12:30 PM EST Pulse 73 04/03/2025 12:30 PM EST Temperature - - Respiratory Rate - - Oxygen Saturation - - Inhaled Oxygen Concentration - - Weight 78.9 kg (174 lb) 04/03/2025 12:30 PM EST Height - - Body Mass Index 24.97 04/03/2025 11:30 AM EST documented in this encounter Progress Notes * Shagufta Bhakta MD, PhD - 04/03/2025 1:30 PM EST Images from the original note were not included. Cardiology Office Visit History of Present Illness: Rodo Herrera is a 50 y.o. 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 02/14 MV repair He still feels tired and sob (surgery 6 weeks ago). Past Medical History: Diagnosis Date Gastroesophageal reflux disease Hypertensive disorder Mitral valve disease Past Surgical History: Procedure Laterality Date ROBOTIC REPAIR MITRAL VALVE ( tissue ) Right 02/19/2025 Performed by Natalie Acosta MD at [facility] OR No Known Allergies Family History Problem Relation Age of Onset Coronary artery disease Maternal Grandmother Social History: Social History Social History Narrative with 2 children Works for an [employer] Social History Tobacco Use Smoking status: Every Day Types: Cigarettes Smokeless tobacco: Never Tobacco comments: 3-4 cigarettes/day Substance Use Topics Alcohol use: Yes Alcohol/week: 2.0 standard drinks of alcohol Types: 2 Cans of beer per week Review of Systems: As per HPI. All remaining systems reviewed and are otherwise negative. Vital signs: BP 132/74 (BP Location: Right arm, Patient Position: Sitting, Cuff Size: Medium) Pulse 73 Wt 78.9 kg (174 lb) BMI 24.97 kg/m?? Wt Readings from Last 3 Encounters: 04/03/25 78.9 kg (174 lb) 04/03/25 78.9 kg (174 lb) 02/26/25 80.3 kg (177 lb) Physical Exam: General Appearance: No acute distress. Skin: Warm, well perfused. HEENT: Within normal limits. Respiratory: Lungs: decreased BS Rt > Lt to auscultation. CV: No JVD. Carotids 2+ without bruits.The LVI was discrete and nondisplaced. Regular rate and rhythm, normal S1 and S2, no S3 or S4. OS Abdominal aorta normal in size. No abdominal bruits. Extremities have no edema. GI:Normal active bowel sounds, soft and nontender, without masses. Neuro: Alert and oriented times 3. Data: Lab Results Component Value Date NA 131 (L) 02/26/2025 K 4.5 02/26/2025 CL 94 (L) 02/26/2025 CO2 30 02/26/2025 BUN 16 02/26/2025 CRE 1.25 02/26/2025 GLU 105 02/26/2025 Lab Results Component Value Date TP 6.2 02/22/2025 ALB 3.2 (L) 02/22/2025 GLOB 3.0 02/22/2025 SGOT 34 02/22/2025 SGPT 32 02/22/2025 ALKP 72 02/22/2025 TBILI 0.3 02/22/2025 DBILI 0.1 02/22/2025 No results found for: NTBNP No results found for: CHOL , CHLCRYS , FCHOL , HDL , LDL1 , LDL2 , LDL3 , LDL4 , LDLCAL , LDL , TRIG , FTRI , CHOLHDL , LDLD , LDLDIR HEMOGLOBIN A1C Date Value Ref Range Status 02/05/2025 5.0 4.3 - 5.6 % Final Comment: HbA1c levels 5.7-6.4% represent pre-diabetes, indicating impaired glucose control and an increased risk of developing diabetes compared with lower HbA1c levels. The diagnostic HbA1c level for diabetes is 6.5% or greater. No results found for: TSH Lab Results Component Value Date WBC 5.75 02/26/2025 HGB 9.2 (L) 02/26/2025 HCT 28.8 (L) 02/26/2025 PLT 236 02/26/2025 EKG: I have personally reviewed the EKG from 04/03/2025 which shows NSR @ 73. Other Results: Assessment/Plan: S/P mitral valve repair Still feels tired and sob especially in the evening. He can easily go up one flight of stairs. P: echo, cardiac rehab, will reduce ASA to 81 mg Atrial fibrillation Will reduce ASA to 81 mg. P: Patch in 2 months Medications: Patient's Medications New Prescriptions ASPIRIN 81 MG CHEWABLE TABLET Take 1 tablet (81 mg total) by mouth daily. Previous Medications ACETAMINOPHEN (TYLENOL) 325 MG TABLET Take 1-2 tablets (325-650 mg total) by mouth 3 (three) times a day. APIXABAN (ELIQUIS) 5 MG TABLET Take 1 tablet (5 mg total) by mouth 2 (two) times a day. FERROUS SULFATE 325 MG (65 MG HABEMATOLEL IRON) TABLET Take 325 mg by mouth daily with breakfast. FOLIC ACID (FOLVITE) 1 MG TABLET Take 1 tablet by mouth every morning. LIDOCAINE 4 % Place 2 patches onto the skin daily. OMEPRAZOLE (PRILOSEC) 40 MG CAPSULE Take 1 capsule by mouth daily. Modified Medications Modified Medication Previous Medication METOPROLOL SUCCINATE (TOPROL-XL) 25 MG 24 HR TABLET metoprolol succinate (TOPROL-XL) 25 MG 24 hr tablet Take 1 tablet (25 mg total) by mouth daily. Take 1 tablet (25 mg total) by mouth 2 (two) times a day. Discontinued Medications ASPIRIN 325 MG TABLET Take 1 tablet (325 mg total) by mouth daily. Education/Counseling: Goals None Follow up: Return in about 3 months (around 07/04/2025). Shagufta Bhakta MD, PhD documented in this encounter Miscellaneous Notes * Assessment & Plan Note - Shagufta Bhakta MD, PhD - 04/03/2025 1:39 PM EST Associated Problem(s): Atrial fibrillation Will reduce ASA to 81 mg. P: Patch in 2 months * Assessment & Plan Note - Shagufta Bhakta MD, PhD - 04/03/2025 1:31 PM EST Associated Problem(s): S/P mitral valve repair Still feels tired and sob especially in the evening. He can easily go up one flight of stairs. P: echo, cardiac rehab, will reduce ASA to 81 mg documented in this encounter Plan of Treatment Upcoming Encounters Date Type Department Care Team (Late st Contact Info) Description 04/03/2025 Procedure Pass [facility] Holter Lab [address] [facility], 5th Floor, [address] [place] [address] 04/03/2025 Procedure Pass [facility] Cardiology [address] [facility], [address] [place] [address] 06/06/2025 8:30 AM EST Appointment [facility] Holter Lab [address] [facility], 5th Floor, [address] [place] [address] Shagufta Bhakta MD, PhD [address] [facility] [address] [place] [address] [email or web address] 06/21/2025 8:00 AM EST Appointment [facility] Cardiology [address] [facility], [address] [place] [address] Shagufta Bhakta MD, PhD [address] [facility] [address] [place] [address] [email or web address] Scheduled Orders Name Type Priority Associated Diagnoses Orde r Schedule ECG 12-LEAD ECG Routine S/P mitral valve repair Ordered: 04/03/2025 Adult Echo TTE Echocardiography Routine Status post mitral valve repair Expected: 04/10/2025, Expires: 07/04/2025 Patch Monitor up to 15 days Cardiac Monitors Routine Paroxysmal atrial fibrillation Expected: 06/06/2025, Expires: 09/04/2025 Scheduled Referrals Name Type Priority Associated Diagnoses Order Schedule Ambulatory referral to External Cardiac Rehab Outpatient Referral Routine Ordered: 04/03/2025 documented as of this encounter Visit Diagnoses Diagnosis S/P mitral valve repair- Primary Other postprocedural status Status post mitral valve repair Other postprocedural status Paroxysmal atrial fibrillation Atrial fibrillation documented in this encounter Care Teams Utility Repairer Relationship Specialty Start Date End Date Faye Avelar MD [facility] [place] [address] PCP - General Internal Medicine 09/19/23 Shagufta Bhakta MD, PhD [address] [place] [address] [address] [place] [address] [email or web address] Customs Agent Interventional Cardiology 10/11/23 Waqas Diaz MD [address] [place] [address] [address] [place] [address] Gastroenterology 02/14/25 documented as of this encounter Additional Source Comments The information contained in this document represents components of the legal health record. It is not the complete legal health record.[facility]
[2025-04-03 20:26] VITALS: BP 175/97; PULSE 99; RESP 22; TEMP 36.1; O2SAT 100; BMI 23.0
[2025-04-03 20:36] VITALS: BP 182/96; PULSE 86; RESP 9; O2SAT 100
--- NOTE | 2025-04-03 20:39 | ED.CHESTPAIN ---
HPI - Chest Pain General Chief Complaint: Chest Pain Stated Complaint: sob cp Time Seen by Provider: 04/03/25 20:39 History of Present Illness ED Provider: Melony HICKEY narrative: the patient is a 50-year-old male who was a proximally 6 weeks postoperative from a mitral valve surgery at [facility]. The patient reports having mitral regurgitation. He apparently had a robotic surgery to repair his afognak valve. He did not receive a prosthetic valve. Postoperatively he had an episode of atrial fibrillation and he has since been on both metoprolol and apixaban. The patient has been recovering well from the surgery and earlier today had a follow up appointment with the surgery team in [place]. Apparently they felt that everything seemed to be going well. This evening however, at around 7:30 PM, he was doing nothing in particular when pain and shortness of breath. The chest pain did not seem to be particularly pleuritic or obviously positional although he said that sitting up is better than lying down. the patient has had no pain or swelling in his legs. He has had no fever, sweats, chills. He may have had a mild cough this evening. Related Data Home Medications ?Medication ?Instructions ?Recorded ?Confirmed cholecalciferol (vitamin D3) 25 50 mcg PO DAILY 09/07/23 03/27/25 mcg (1,000 unit) capsule cyanocobalamin (vitamin B-12) 500 500 mcg PO DAILY 12/13/23 03/27/25 mcg lozenges (Vitamin B-12) folic acid 1 mg tablet 1 mg PO DAILY 08/17/24 03/27/25 omeprazole 20 mg capsule,delayed 20 mg PO QAM 03/01/25 03/27/25 release apixaban 5 mg tablet (Eliquis) 5 mg PO BID 03/25/25 03/27/25 metoprolol succinate 25 mg 25 mg PO BID 03/25/25 03/27/25 tablet,extended release 24 hr Previous Rx's ?Medication ?Instructions ?Recorded lorazepam 0.5 mg tablet 0.5 mg PO BEDTIME PRN anxiety #30 03/27/25 tabs Allergies Allergy/AdvReac Type Severity Reaction Status Date / Time No Known Allergies Allergy Verified 04/03/25 20:27 Review of Systems Review of Systems: Yes all other systems are reviewed and are negative [facility] Past Medical History Medical History Murmur Hx of peptic ulcer Iron deficiency anemia HTN (hypertension) Severe mitral regurgitation Surgical History History of open heart surgery History of esophagogastroduodenoscopy (EGD) H/O colonoscopy Family History Family History Father No problems noted. Mother No problems noted. Social History Social History Housing: House Alcohol intake: current Alcohol intake frequency: a few times a month Patient Tobacco Use Status: Current everyday Tobacco user Tobacco use type: Cigarette e-Cigarette/Vaping Use: Never Used Advance Directives: No Advance Directives Information Provided: No Do you have a plan to hurt others: No Plan Current occupational status: employed Cognitive needs: No Hearing needs: No Vision needs: Yes Physical Exam Vital Signs: Vital Signs: Last Vital Signs Temp 98 F 04/04/25 03:17 Pulse 65 04/04/25 03:17 Resp 20 04/04/25 03:17 BP 152/84 H 04/04/25 03:17 Pulse Ox 99 04/04/25 03:17 O2 Del Method Room Air 04/04/25 03:17 BMI result Body Mass Index 23.0 Const: Other: The patient is a 50-year-old male who was awake and alert. He looked apprehensive but did not seem in overt distress. HEENT: Other: The face is symmetrical. Mucous membranes moist. Eyes: Other: Pupils are round equal, conjunctivae are clear, extraocular movements intact Neck: Neck: Yes normal visual inspection, Yes full ROM and Yes no JVD Resp: Effort & Inspection: normal respiratory effort Auscultation: clear to auscultation bilaterally Cardio: Rate: regular rate Rhythm: regular rhythm Heart sounds: S1 normal heart sound present and S2 normal heart sound present GI: Other: Abdomen is soft and nontender Skin: Other: The skin is dry and unremarkable Neuro: Other: the patient was awake and alert. He seemed to apprehensive but had a normal mental status. Cranial nerves 2-12 are grossly intact. He moves his extremities symmetrically and appropriately and seems neurologically intact. Extrem: Other: There is no calf swelling or tenderness. No asymmetry. No peripheral edema. Medications Administered Discontinued Medications Generic Name Dose Route Start Last Admin Trade Name Freq PRN Reason Stop Dose Admin Iohexol 100 ml 04/04/25 00:24 04/04/25 00:30 Iohexol 350 Mg/Ml 100 Ml Infus..Btl IV 04/04/25 00:25 70 ml ONCE ONE Administration Procedures Procedure Narrative Procedure Narrative: 9:14 PM 04/03/2025 (Dr. Isma Bourgeois): I was asked to assist in performing point of care ultrasound echocardiogram on this patient. See my report below otherwise I was not involved in the patient's care: EMERGENCY ULTRASOUND INTERPRETATION-Limited Echocardiography [This study was ordered, performed, and interpreted by myself. The study reveals: Impression: NORMAL LV FUNCTION, NO RV DYSFUNCTION, NO PERICARDIAL EFFUSION, likely expected mild hyperechoic findings near the mitral valve annulus no evidence of severe mitral valve regurgitation] [Emergent Cardiac for Indication: Views Used: PLAX, PSSA, A4, Pericardial Effusion/Tamponade Findings: NONE RV Dilation (> LV diam in 4ch apical): NONE Global LV Fxn: NORMAL Performed by: MD Bk Images were stored CPT:84390] __ EMERGENCY ULTRASOUND INTERPRETATION-Point of Care Thoracic: IMPRESSION: Subtle irregularity of the anterior superior right pleural region possible subpleural consolidation or pneumonia No substantial pleural effusion, B-lines or pneumothorax of either hemithorax Indication: Dyspnea Findings: Right Pleural 2ICS: ?POSITIVE SLIDING, No B Lines or Consolidation. Focal area anterior superior subpleural consolidation as above noted Right PLAPS: ?No effusion Left Pleural 2ICS: POSITIVE SLIDING, No B Lines or Consolidation Left PLAPS: ?No effusion Performed by: Isma Bourgeois MD ? Images were stored CPT: 59761,[id number]] Medical Decision Making Medical Decision Making MDM Narrative: The patient is a 50-year-old male with a history of mitral valve regurgitation but who is not significantly systemically ill otherwise. Six weeks ago he had a robotic surgery to repair his mitral valve. He did not receive a prosthetic mitral valve. the surgery was done in [facility] by Dr. Natalie Acosta. As far as I can tell he has been recovering well from the surgery until this evening. The patient has been seen at follow up just several hours before he became symptomatic this evening. At home this evening he was doing nothing in particular when he felt chest discomfort and shortness of breath. He was very vague about describing the nature of the discomfort. It did not seem markedly pleuritic. He was anxious that his blood pressure was high. The patient is on apixaban. This was started after he had an episode of postoperative atrial fibrillation. He is also on metoprolol. The patient has no signs of a DVT. His EKG suggested some ST segment depressions. however the patient reports that he had a pre-surgical cardiac catheterization that showed no coronary disease. A bedside echo was performed by my colleague Dr. Bourgeois that showed no concerning findings. There was no obvious pericardial effusion. There was no evidence of right heart enlargement or strain. No obvious contractility problem. Chest x-ray showed no widened mediastinum. No significant cardiomegaly. It was read as possibly showing some increased interstitial markings but there was no sign of pneumonia. Labs showed a white count of 6.2 with a hemoglobin of 10.7, platelet count 296, unremarkable differential, no left shift basic metabolic panel was unremarkable. troponins are normal. ProBNP mildly elevated at 469. the patient is workup was not showing any obvious explanation for his symptoms. Fortunately his symptoms resolved spontaneously. He rather abruptly reported that he felt considerably better. No ongoing discomfort. No ongoing shortness of breath. Additionally his blood pressures, which were somewhat elevated initially, came down spontaneously. When he was feeling better I asked the patient if he could try to characterize his chest discomfort again. At that point he said it felt like a panic attack. I contacted the surgeon covering for the patient's cardiothoracic surgeon had [facility],Dr. Aiden Ivy. we agreed that if we did a CT angiogram to rule out aortic disease that the patient could probably be discharged. My suspicion for an aortic dissection was low. Nevertheless we proceeded with a CT angiogram. I will be signing the patient out to my colleague at change of shift pending the results of the CT angiogram of the chest. My expectation is that this will be read as showing no significant acute findings and that the patient with a likely be discharged to follow up with his cardiac surgeon. I received sign-out from my colleague Dr. Ty CTA is unremarkable for thoracic aorta, there is a small red pleural effusion with likely atelectasis. Patient denies any chest pain at this time no shortness of breath. Patient believes that earlier today he had a panic attack. As mentioned above, Dr. Ty spoke with the patient's thoracic surgeon, if the CT scan would not show any thoracic abnormality, the patient would be discharged. Patient agrees with plan Differential Diagnosis Differential Diagnoses: The differential diagnosis associated with the presentation includes ( mitral valve surgical complication, aortic aneurysm, anxiety) Admission/Observation Consideration of admission/observation: Escalation of care including admission/observation considered ( given the patient's past surgical history and presentation, observation/ transfer was considered) Consult Healthcare Provider Management of the patient was discussed with: Spooler Operator Automatic Lab Data MDM Lab Attestation statement: I reviewed the patient's lab results. 04/03/25 20:04/03/25 20:31 Labs: Lab Results 04/03/25 04/03/25 04/03/25 Range/Units 20:31 21:22 22:17 WBC 6.2 (4.8-10.8) X10*3/uL RBC 3.89 L (4.60-5.80) X10*6/uL Hgb 10.7 L (14.0-18.0) g/dl Hct 33.5 L (42.0-52.0) % MCV 86.1 (80.0-98.0) fL MCH 27.5 (27.0-33.0) pg MCHC 31.9 (31.0-36.0) g/dl RDW 21.7 H (11.0-16.0) % Plt Count 296 D (160-400) X10*3/uL MPV 9.6 (9.4-12.4) fL Immature Gran % (Auto) 0.8 H (0.0-0.4) % Neut % (Auto) 50.8 (45-73) % Lymph % (Auto) 30.9 (20-40) % Barnwell % (Auto) 12.3 H (2-11) % Eos % (Auto) 4.2 H (0-4) % Baso % (Auto) 1.0 (0-2) % Lymph # (Auto) 1.9 (1.2-4.9) X10*3/uL Barnwell # (Auto) 0.8 (0.1-1.2) X10*3/uL Eos # (Auto) 0.3 (0.0-0.4) X10*3/uL Baso # (Auto) 0.1 (0.0-0.2) X10*3/uL Abs Immat Gran (auto) 0.05 H (0.00-0.03) X10*3/uL Absolute Neuts (auto) 3.2 (2.0-8.3) x10*3/uL Absolute Nucleated RBC 0.000 (0.0-0.012) X10*3/uL Nucleated RBC % (auto) 0.0 (0.0-0.2) /100WBC Sodium 141 (135-145) mmol/L Potassium 3.8 (3.3-5.1) mmol/L Chloride 106 (96-108) mmol/L Carbon Dioxide 23 (22-29) mmol/L Anion Gap 16 (12-20) BUN 11 (9-16) mg/dL Creatinine 1.39 (0.5-1.4) mg/dL Estim Creat Clear Calc 70.1 Estimated GFR 54 Fasting Glucose 95 (60-99) mg/dL Calcium 9.3 D (8.4-10.2) mg/dL Magnesium 2.2 (1.6-2.6) mg/dL Total Bilirubin 0.3 (0.0-1.0) mg/dL AST 37 (5-37) U/L ALT 44 H (0-40) U/L Alkaline Phosphatase 151 H (39-117) U/L Troponin I High Sens 4.4 3.1 (<3.5-35.0) ng/L C-Reactive Protein 0.35 (< or = 0.50) mg/dL NT-Pro-B Natriuret Pep 469.3 H (<300) pg/mL Total Protein 7.6 (6.5-8.0) g/dL Albumin 4.4 (3.5-5.0) g/dL Influenza Type A (PCR) NEGATIVE (Negative) Influenza Type B (PCR) NEGATIVE (Negative) RSV RNA Qual (PCR) NEGATIVE (Negative) SARS-CoV-2 RNA (RT-PCR) NEGATIVE (Negative) Independent Interpretation I performed an independent interpretation of an: CT Scan Radiology Impression Discussion of test interpretation with radiology: I have reviewed the radiologist's reading. Radiologist Impression: Thoracic aorta is of normal caliber. No dissection or aneurysmal dilatation seen. Proximal great vessels are unremarkable. No contrast is seen within the pulmonary arteries. No pathologically enlarged mediastinal, hilar, or axillary lymph nodes identified. Trace pericardial effusion. Small right pleural effusion with likely dependent atelectasis within the right lower lobe. No left pleural effusion is seen. Linear areas of likely scarring or atelectasis are seen within the right middle lobe. No free fluid or free air within the upper abdomen. Air-filled distention of the mid to distal esophagus. Gallbladder is contracted. No acute bony abnormality. IMPRESSION: 1. Unremarkable CT angiogram of the thoracic aorta. 2. Small right pleural effusion with likely dependent atelectasis within the right lower lobe. Critical Care Time Critical Care Time Critical Care Time: Yes Total Critical Care Time: 50 Attestation: I have personally provided critical care time. Time includes review of lab data, radiology results, discussion with consultants, and monitoring for potential decompensation. Intervention performed as documented. Discharge Plan Discharge Clinical Impression: Chest pain, Shortness of breath Patient Disposition: Home, Self-Care Instructions: Chest Pain (ED), Shortness of Breath (ED) Additional Instructions: Your testing in the emergency room has been quite reassuring. Please contact your cardiac surgeon, Dr. Acosta, in the morning to discuss how you were doing. Continue your regular medications. Return to the emergency room if significantly worse. Prescriptions: No Action cyanocobalamin (vitamin B-12) [Vitamin B-12] 500 mcg Lozenge 500 mcg PO DAILY cholecalciferol (vitamin D3) 25 mcg (1,000 unit) capsule 50 mcg PO DAILY folic acid 1 mg tablet 1 mg PO DAILY omeprazole 20 mg capsule,delayed release(DR/EC) 20 mg PO QAM metoprolol succinate 25 mg tablet extended release 24 hr 25 mg PO BID Eliquis 5 mg tablet 5 mg PO BID lorazepam 0.5 mg tablet 0.5 mg PO BEDTIME PRN (Reason: anxiety) Qty: 30 0RF Referrals: Faye Avelar MD [Primary Care Provider, Internal Medicine] Rony Doherty MD [Physician, Cardiology] Print Language: Kazakh
--- OUTSIDE RECORDS SUMMARY | 2025-04-03 20:40 | XMS_ITS | Encounter Summary ---
Author Organization [facility] Address [address] [facility] [address] [place] [phone] Phone Care Team Providers Care Barrel Tester Name Role Phone Faye Avelar MD Primary Care Provider Shagufta Bhakta MD, PhD Unavailable [phone] Waqas Diaz MD Unavailable [phone] Encounter Details Date Type Department Care Team ([facility] st Contact Info) Description 03/27/2024 Telephone VIRTUAL DEPARTMENT [address] [place] [phone] Natalie Acosta MD [address] [place] [phone] [email or web address] Social History Tobacco Use Types Packs/Day Years [...] st Contact Info) Description 04/03/2025 Procedure Pass [facility] Holter Lab [address] [facility], 5th Floor, [address] [place] [address] 04/03/2025 Procedure Pass [facility] Cardiology [address] [facility], [address] [place] [address] 06/06/2025 8:30 AM EST [facility] [address] [facility], 5th Floor, [address] [place] [address] Shagufta Bhakta MD, PhD [address] [address] [email or web address] 06/21/2025 8:00 AM EST Appointment [facility] Cardiology [address] [facility], [address] [place] [address] Shagufta Bhakta MD, PhD [address] [address] [email or web address] documented as of this encounter Visit Diagnoses Not on filedocumented in this encounter Care Teams Barrel Tester Relationship Specialty Start Date End Date Faye Avelar MD [address] [facility] [place] [address] PCP - General Internal Medicine 09/19/23 Shagufta Bhakta MD, PhD [address] [address] [email or web address] Tooling Engineer Interventional Cardiology 10/11/23 Waqas Diaz MD [address] [place] [address] [address] [place] [address] Gastroenterology 02/14/25 documented as of this encounter Additional Source Comments The information contained in this document represents components of the legal health record. It is not the complete legal health record.[facility]
--- OUTSIDE RECORDS SUMMARY | 2025-04-03 20:40 | XMS_ITS | Encounter Summary ---
Author Organization [facility] Address [address] [facility] [address] [place] [address] Phone Care Team Providers Care Glass Or Mirror Inspector Name Role Phone Faye Avelar MD Primary Care Provider [phone] Shagufta Bhakta MD, PhD Unavailable [phone] Waqas Diaz MD Unavailable [phone] Encounter Details Date Type Department Care Team (Late st Contact Info) Description 02/19/2025 Procedure Pass [facility] [address] [place] [phone] Social History Tobacco Use Types Packs/Day Years [...] Risk Indicated 02/19/2025 6:00 PM EDT John Mohamud, TIFFANY * [place] Suicide Severity Rating Scale (Screener/Recent Self-Report) Question Answer Date of Assessment Author 1. Wish to be (Past 1 Month) No 025 6:00 PM EDT John Mohamud, TIFFANY 2. Non-Specific Active Suici morena Thoughts (Past 1 Month) No 02/19/2025 6:00 PM EDT Neymar Mohaumd RN 6. Suicidal Behavior (Lifetime) No 6:00 PM EDT John Mohamud, TIFFANY documented as of this encounter Plan of Treatment Upcoming Encounters Date Type Department Care Team (Late st Contact Info) Description 04/03/2025 Procedure Pass [facility] Holter Lab [address] [place] [address], 5th Floor, [address] [place] [address] 04/03/2025 Procedure Pass [facility] Cardiology [address] [facility], [address] [place] [address] 06/06/2025 8:30 AM EST Appointment [facility]ter Lab [address] [place] [address], 5th Floor, [address] [place] [address] Shagufta Bhakta MD, PhD [address] [facility] [address] [place] [address] [email or web address] 06/21/2025 8:00 AM EST Appointment [facility] Cardiology [address] [facility], [address] [place] [address] Shagufta Bhakta MD, PhD [address] [facility] [address] [place] [address] [email or web address] documented as of this encounter Visit Diagnoses Not on filedocumented in this encounter Care Teams Glass Or Mirror Inspector Relationship Specialty Start Date End Date Faye Avelar MD [address] [place] [address] PCP - General Internal Medicine 09/19/23 Shagufta Bhakta MD, PhD [address] [facility] [address] [place] [address] [email or web address] Manager Book Interventional Cardiology 10/11/23 Waqas Diaz MD [address] [place] [address] [address] [place] [address] Gastroenterology 02/14/25 documented as of this encounter Additional Source Comments The information contained in this document represents components of the legal health record. It is not the complete legal health record.[facility]
--- OUTSIDE RECORDS SUMMARY | 2025-04-03 20:40 | XMS_ITS | Encounter Summary ---
Author Organization [facility] Address [address] [facility] [address] [place] [address] Phone Care Team Providers Care Field Crop Farming Supervisor Name Role Phone Faye Avelar MD Primary Care Provider Shagufta Bhakta MD, PhD Unavailable [phone] Waqas Diaz MD Unavailable [phone] Encounter Details Date Type Department Care Team (Late st Contact Info) Description 09/11/2024 Procedure Pass [facility] Cardiac US [address] [place] [address] Social History Tobacco Use Types Packs/Day Years [...] st Contact Info) Description 04/03/2025 Procedure Pass [facility] Holter Lab [address] [facility], 5th Floor, [address] [place] [address] 04/03/2025 Procedure Pass [facility] Cardiology [address] [facility], [address] [place] [address] 06/06/2025 8:30 AM EST Appointment [facility] Holter Lab [address] [facility], 5th Floor, [address] [place] [address] Shagufta Bhakta MD, PhD [address] [facility] [address] [place] [address] [email or web address] 06/21/2025 8:00 AM EST Appointment [facility] Cardiology [address] [facility], [address] [place] [address] Shagufta Bhakta MD, PhD [address] [facility] [address] [place] [address] [email or web address] documented as of this encounter Visit Diagnoses Not on filedocumented in this encounter Care Teams Field Crop Farming Supervisor Relationship Specialty Start Date End Date Faye Avelar MD [address] [facility] [place] [address] PCP - General Internal Medicine 09/19/23 Shagufta Bhakta MD, PhD [address] [facility] [address] [place] [address] [email or web address] Hotel Staff Member Interventional Cardiology 10/11/23 Waqas Diaz MD [address] [place] [address] Drive [address] [place] [address] Gastroenterology 02/14/25 documented as of this encounter Additional Source Comments The information contained in this document represents components of the legal health record. It is not the complete legal health record.[facility]
--- OUTSIDE RECORDS SUMMARY | 2025-04-03 20:40 | XMS_ITS | Encounter Summary ---
Author Organization [facility] Address [address] [facility] [address] [place] [address] Phone Care Team Providers Care Maintenance Services Dispatcher Name Role Phone Faye Avelar MD Primary Care Provider Shagufta Bhakta MD, PhD Unavailable [phone] Waqas Diaz MD Unavailable [phone] Encounter Details Date Type Department Care Team (Late st Contact Info) Description 10/02/2024 Procedure Pass [facility] PERIOPERATIVE DEPT [address] [place] [phone] Social History Tobacco Use Types Packs/Day Years [...] st Contact Info) Description 04/03/2025 Procedure Pass [facility] Holter Lab [address] [facility], 5th Floor, [address] [place] [address] 04/03/2025 Procedure Pass [facility] Cardiology [address] [facility], [address] [place] [address] 06/06/2025 8:30 AM EST Appointment [facility] Holter Lab [address] [facility], 5th Floor, [address] [place] [address] Shagufta Bhakta MD, PhD 55 [facility] [address] [place] [address] [email or web address] 06/21/2025 8:00 AM EST [facility]ointment [facility] [address] [facility], [address] [place] [address] Shagufta Bhakta MD, PhD 55 [facility] 800 [place] [address] [email or web address] documented as of this encounter Visit Diagnoses Not on filedocumented in this encounter Care Teams Maintenance Services Dispatcher Relationship Specialty Start Date End Date Faye Avelar MD [address] [facility] [place] [address] PCP - General Internal Medicine 09/19/23 Shagufta Bhakta MD, PhD 55 [facility] [address] [place] [address] [email or web address] Fitness Supervisor Interventional Cardiology 10/11/23 Waqas Diaz MD [address] [place] [address] Drive [address] [place] [address] Gastroenterology 02/14/25 documented as of this encounter Additional Source Comments The information contained in this document represents components of the legal health record. It is not the complete legal health record.[facility]
--- OUTSIDE RECORDS SUMMARY | 2025-04-03 20:40 | XMS_ITS | Encounter Summary ---
Author Organization [facility] Address [address] [facility] [address] [place] [address] Phone Care Team Providers Care Patient Registration Manager Name Role Phone Faye Avelar MD Primary Care Provider [phone] Shagufta Bhakta MD, PhD Unavailable [phone] Waqas Diaz MD Unavailable [phone] Encounter Details Date Type Department Care Team (Late st Contact Info) Description 02/19/2025 Procedure Pass [facility] Cardiac US [address] [place] [address] Social History Tobacco Use Types Packs/Day Years [...] 6:00 PM EDT John Mohamud, TIFFANY * [place] Suicide Severity Rating Scale (Screener/Recent Self-Report) Question [...] st Contact Info) Description 04/03/2025 Procedure Pass [facility] Holter Lab [address] [place] [address], 5th Floor, [address] [place] [address] 04/03/2025 Procedure Pass [facility] Cardiology [address] [facility], [address] [place] [address] 06/06/2025 8:30 AM EST Appointment [facility] Lab 32 [facility], 5th Floor, [address] [place] [address] Shagufta Bhakta MD, PhD [facility] [address] [place] [address] [email or web address] 06/21/2025 8:00 AM EST Appointment [facility] Cardiology 52 [facility], [address] [place] [address] Shagufta Bhakta MD, PhD 55 [facility] [address] [place] [address] [email or web address] documented as of this encounter Visit Diagnoses Not on filedocumented in this encounter Care Teams Patient Registration Manager Relationship Specialty Start Date End Date Faye Avelar MD [address] [facility] [place] [address] PCP - General Internal Medicine 09/19/23 Shagufta Bhakta MD, PhD 55 [facility] 800 [place] [address] [email or web address] Contracting Support Specialist Interventional Cardiology 10/11/23 Waqas Diaz MD [address] [place] [address] [address] [place] [address] Gastroenterology 02/14/25 documented as of this encounter Additional Source Comments The information contained in this document represents components of the legal health record. It is not the complete legal health record.[facility]
--- OUTSIDE RECORDS SUMMARY | 2025-04-03 20:40 | XMS_ITS | Encounter Summary ---
Author Organization [facility] Address [address] [facility] [address] [place] [address] Phone Care Team Providers Care Bag Grader Name Role Phone Faye Avelar MD Primary Care Provider Shagufta Bhakta MD, PhD Unavailable [phone] Waqas Diaz MD Unavailable [phone] Encounter Details Date Type Department Care Team ([facility] st Contact Info) Description 11/29/2024 Telephone VIRTUAL DEPARTMENT [address] [place] [phone] Natalie Acosta MD [address] [place] [address] [email or web address] Social History Tobacco Use Types Packs/Day [...] st Contact Info) Description 04/03/2025 Procedure Pass [facility] Holter Lab 32 [facility], 5th Floor, [address] [place] [address] 04/03/2025 Procedure Pass [facility] Cardiology 52 [facility], [address] [place] [address] 06/06/2025 8:30 AM EST [facility]ment [facility] 32 [facility], 5th Floor, [address] [place] [address] Shagufta Bhakta MD, PhD [address] [address] [email or web address] 06/21/2025 8:00 AM EST Appointment [facility] Cardiology [address] [facility], [address] [place] [address] Shagufta Bhakta MD, PhD [address] [address] [email or web address] documented as of this encounter Visit Diagnoses Not on filedocumented in this encounter Care Teams Bag Grader Relationship Specialty Start Date End Date Faye Avelar MD [address] [facility] [place] [address] PCP - General Internal Medicine 09/19/23 Shagufta Bhakta MD, PhD [address] [address] [email or web address] Hr Analyst Interventional Cardiology 10/11/23 Waqas Diaz MD [address] [place] [address] [address] [place] [address] Gastroenterology 02/14/25 documented as of this encounter Additional Source Comments The information contained in this document represents components of the legal health record. It is not the complete legal health record.[facility]
--- OUTSIDE RECORDS SUMMARY | 2025-04-03 20:40 | XMS_ITS | Encounter Summary ---
Author Organization [facility] Address [address] [facility] [address] [place] [address] Phone Care Team Providers Care Shoelace Tipping Machine Operator Name Role Phone Faye Avelar MD Primary Care Provider Shagufta Bhakta MD, PhD Unavailable [phone] Waqas Diaz MD Unavailable [phone] Encounter Details Date Type Department Care Team (Late st Contact Info) Description 06/26/2024 Procedure Pass [facility] PERIOPERATIVE DEPT 55 [place] [phone] Social History Tobacco Use Types Packs/Day Years [...] st Contact Info) Description 04/03/2025 Procedure Pass [facility] Holter Lab [address] [facility], 5th Floor, [address] [place] [address] 04/03/2025 Procedure Pass [facility] Cardiology [address] [facility], [address] [place] [address] 06/06/2025 8:30 AM EST Appointment [facility] Holter Lab [address] [facility], 5th Floor, [address] [place] [address] Shagufta Bhakta MD, PhD 55 [facility] [address] [place] [address] [email or web address] 06/21/2025 8:00 AM EST Appointment [facility] [address] [facility], [address] [place] [address] Shagufta Bhakta MD, PhD 55 [facility] [address] [place] [address] [email or web address] documented as of this encounter Visit Diagnoses Not on filedocumented in this encounter Care Teams Shoelace Tipping Machine Operator Relationship Specialty Start Date End Date Faye Avelar MD [address] [place] [address] PCP - General Internal Medicine 09/19/23 Shagufta Bhakta MD, PhD 55 [facility] [address] [place] [address] [email or web address] Business Office Associate Interventional Cardiology 10/11/23 Waqas Diaz MD [address] [place] [address] Drive [address] [place] [address] Gastroenterology 02/14/25 documented as of this encounter Additional Source Comments The information contained in this document represents components of the legal health record. It is not the complete legal health record.[facility]
--- OUTSIDE RECORDS SUMMARY | 2025-04-03 20:40 | XMS_ITS | Encounter Summary ---
Author Organization [facility] Address [address] [facility] [address] [place] [address] Phone Care Team Providers Care Airport Guide Name Role Phone Faye Avelar MD Primary Care Provider Shagufta Bhakta MD, PhD Unavailable [phone] Waqas Diaz MD Unavailable [phone] Encounter Details Date Type Department Care Team (Late st Contact Info) Description 10/13/2023 Procedure Pass [facility], [address] [facility], 2nd Floor, [address] [place] [address] Social History Tobacco Use Types Packs/Day Years [...] st Contact Info) Description 04/03/2025 Procedure Pass [facility] Holter Lab 32 [facility], 5th Floor, [address] [place] [address] 04/03/2025 Procedure Pass [facility] Cardiology [address] [facility], [address] [place] [address] 06/06/2025 8:30 AM EST Appointment [facility] Holter Lab 32 [facility], 5th Floor, [address] [place] [address] Shagufta Bhakta MD, PhD 55 [facility] [address] [place] [address] [email or web address] 06/21/2025 8:00 AM EST Appointment [facility] Cardiology [address] [facility], [address] [place] [address] Shagufta Bhakta MD, PhD [address] [address] [email or web address] documented as of this encounter Visit Diagnoses Not on filedocumented in this encounter Care Teams Airport Guide Relationship Specialty Start Date End Date Faye Avelar MD [address] [facility] [place] [address] PCP - General Internal Medicine 09/19/23 Shagufta Bhakta MD, PhD [address] [address] DIANA@[email or web address] Unit Manager Rn Interventional Cardiology 10/11/23 Waqas Diaz MD [address] [place] [address] Gastroenterology 02/14/25 documented as of this encounter Additional Source Comments The information contained in this document represents components of the legal health record. It is not the complete legal health record.[facility]
--- OUTSIDE RECORDS SUMMARY | 2025-04-03 20:40 | XMS_ITS | Encounter Summary ---
Author Organization [facility] Address [address] [facility] [address] [place] [address] Phone Care Team Providers Care Pilot Submersible Name Role Phone Faye Avelar MD Primary Care Provider Shagufta Bhakta MD, PhD Unavailable [phone] Waqas Diaz MD Unavailable [phone] Encounter Details Date Type Department Care Team ([facility] st Contact Info) Description 04/24/2024 Telephone VIRTUAL DEPARTMENT [address] [place] [phone] Natalie Acosta MD [address] [place] [address] [email or web address] Social History Tobacco Use Types [...] st Contact Info) Description 04/03/2025 Procedure Pass [facility] Holter Lab 32 [facility], 5th Floor, [address] [place] [address] 04/03/2025 Procedure Pass [facility] Cardiology [address] [facility], [address] [place] [address] 06/06/2025 8:30 AM EST [facility] [address] [facility], 5th Floor, [address] [place] [address] Shagufta Bhakta MD, PhD [address] [address] [email or web address] 06/21/2025 8:00 AM EST Appointment [facility] Cardiology [address] [facility], [address] [place] [address] Shagufta Bhakta MD, PhD [address] [address] [email or web address] documented as of this encounter Visit Diagnoses Not on filedocumented in this encounter Care Teams Pilot Submersible Relationship Specialty Start Date End Date Faye Avelar MD [address] [facility] [place] [address] PCP - General Internal Medicine 09/19/23 Shagufta Bhakta MD, PhD [address] [address] DIANA@[email or web address] Poultry Processor Interventional Cardiology 10/11/23 Waqas Diaz MD [address] [place] [address] [address] [place] [address] Gastroenterology 02/14/25 documented as of this encounter Additional Source Comments The information contained in this document represents components of the legal health record. It is not the complete legal health record.[facility]
--- OUTSIDE RECORDS SUMMARY | 2025-04-03 20:40 | XMS_ITS | Clinical Summary ---
Author Organization [facility] Address [address] [address] Phone Care Team Providers Care Editing Internship Name Role Phone Faye Avelar MD Primary Care Provider [phone] Shagufta Bhakta MD, PhD Unavailable [phone] Waqas Diaz MD Unavailable [phone] Allergies No known active allergies Medications folic acid (FOLVITE) 1 MG tablet Take 1 tablet by mouth every morning. 12/05/19 24 Active omeprazole (PRILOSEC) 40 MG capsule Take 1 capsule by mouth daily. 01/18/20 24 Active acetaminophen (TYLENOL) 325 mg tablet Take 1-2 tablets (325-650 mg total) by mouth 3 (three) times a day. 02/27/20 25 Active apixaban (ELIQUIS) 5 mg tablet Take 1 tablet (5 mg total) by mouth 2 (two) times a day. 60 tablet 2 02/27/20 25 026 Active lidocaine 4 % Place 2 patches onto the skin daily. 02/27/20 25 Active ferrous sulfate 325 mg (65 mg king salmon iron) tablet Take 325 mg by mouth daily with breakfast. Active metoprolol succinate (TOPROL-XL) 25 MG 24 hr tablet Take 1 tablet (25 mg total) by mouth daily. 30 tablet 2 04/03/20 25 026 Active aspirin 81 mg chewable tablet Take 1 tablet (81 mg total) by mouth daily. 90 tablet 3 04/03/20 25 Active cyanocobalami n, vitamin B-12, 250 mcg Lozg 2 lozenges Orally Once a day for 30 day(s) Discontinued amiodarone (PACERONE) 200 MG tablet Take 1 tablet (200 mg total) by mouth daily. 30 tablet 02/27/20 Discontinued aspirin 325 MG tablet Take 1 tablet (325 mg total) by mouth daily. 30 tablet 2 02/28/20 Discontinued(D ose adjustment) metoprolol succinate (TOPROL-XL) 25 MG 24 hr tablet Take 1 tablet (25 mg total) by mouth 2 (two) times a day. 60 tablet 2 02/27/20 Discontinued(R eorder) oxyCODONE 5 MG immediate release tablet Take 0.5-1 tablets (2.5-5 mg total) by mouth every 8 (eight) hours as needed for pain (specific location in comments). Partial fill ok for acute post operative pain. Do not drive while taking, do not combine with alcohol or other narcotics 18 tablet 02/27/20 Discontinued senna (SENOKOT) 8.6 mg tablet Take 1 tablet by mouth 2 (two) times a day for 7 days. To prevent constipation 14 tablet 02/27/20 Discontinued torsemide (DEMADEX) 20 MG tablet Take 1 tablet (20 mg total) by mouth daily for 7 days. 7 tablet 02/27/20 Discontinued potassium chloride SA (KLOR-CON M20) 20 MEQ ER tablet Take 1 tablet (20 mEq total) by mouth daily for 7 days. 7 tablet 02/27/20 Discontinued Active Problems Problem Noted Date Diagnosed Date Atrial fibrillation 04/03/2025 Assessment & Plan (04/03/2025 1:39 PM EST): Will reduce ASA to 81 mg. P: Patch in 2 months S/P mitral valve repair 04/02/2025 Overview (04/02/2025): 02/14 MV repair Assessment & Plan (04/03/2025 1:37 PM EST): Still feels tired and sob especially in the evening. He can easily go up one flight of stairs. P: echo, cardiac rehab, will reduce ASA to 81 mg Chronic gastric ulcer 08/27/2024 Anemia 08/27/2024 Rectal [...] visit around 01/11. Per patient echo at [facility] showed severe MR. Of note, he was born with murmur. He plays tennis for 2-3 hours per week and pickle ball for 1 hour per week. P: echo, dental consult Resolved Problems Problem Noted Date Diagnosed Date Resolved Date Mitral valve insufficiency, unspecified etiology 02/19/2025 04/02/2025 Encounters Date Type Department Care Team Description 04/03/2025 1:30 PM EST Office Visit [facility] [address], 5th [address], [address] [place] [address] Shagufta Bhakta MD, PhD S/P mitral valve repair (Primary Dx); Status post mitral valve repair; Paroxysmal atrial fibrillation 04/03/2025 11:30 AM EST Office Visit [facility] Division of Cardiac Surgery [address], 6th [address], [address] [place] [address] Natalie Acosta MD Postop check (Primary Dx) 04/03/2025 10:25 AM EST Hospital Encounter [facility] Imaging - Shelton Morelos 2 [address], 2nd [place] [address] Gonzalo Parsons PA-C Arrived 03/22/2025 Telephone [facility] Division of Cardiac Surgery [address], 6[address], [address] [place] [address] Panchito Stark, SUMMER LAW CLERK 03/17/2025 Documentation [facility] Cardiovascular Medicine [address], 5[address], [address] [place] [address] Arya Betancourt MD 03/13/2025 Telephone [facility] Division of Cardiac Surgery [address], [address], [address] [place] [address] Alaina Brizuela FNP 03/13/2025 Refill [facility] [address], 5[address], [address] [place] [address] Nidia Devries CNP Medication Refill 02/28/2025 Telephone [facility] Division of Cardiac Surgery [address], [address], [address] [place] [address] Panchito Stark CNP 02/19/2025 7:30 AM EDT - 02/19/2025 2:11 PM EDT Surgery [facility] PERIOPERATIVE DEPT [address] [place] [address] Natalie Acosta MD ROBOTIC REPAIR MITRAL VALVE ( tissue ) 02/19/2025 7:18 AM EDT Anesthesia Event [facility] PERIOPERATIVE DEPT [address] [place] [address] Colin Layne MBBS Hayes, Colleen Ann, DO 02/19/2025 6:40 AM EDT Ancillary Procedure [facility] Imaging Bedside Ultrasound VRT [address] [place] [address] Colin Layne MBBS Melnitchouk, Serguei, MD 02/19/2025 5:33 AM EDT - 02/26/2025 11:18 AM EDT Hospital Encounter [facility] [address] [place] [address] Natalie Acosta MD Discharge Disposition: Home or Self Care 02/19/2025 Procedure Pass [facility] Cardiac US [address] [place] [address] 02/19/2025 Procedure Pass [facility] PERIOPERATIVE DEPT [address] [place] [phone] 02/18/2025 Documentation [facility] Division of Cardiac Surgery [address], [address] Floor, [address] [place] [address] Ariana Elaine RN 2025 Telephone [facility] Division of Cardiac Surgery [address] [place] [address], 6th Floor, [address] [place] [address] Panchito Stark, SUMMER LAW CLERK 02/14/2025 Orders Only [facility] Division of Cardiac Surgery [address] [place] [address], 6th Floor, [address] [place] [address] Med Kaye MD 02/14/2025 Telephone [facility] Division of Cardiac Surgery [address] [place] [address], 6th Floor, [address] [place] [address] Panchito Stark, SUMMER LAW CLERK 02/12/2025 Telephone [facility] Division of Cardiac Surgery [address] [place] [address], 6th Floor, [address] [place] [address] Panchito Stark, SUMMER LAW CLERK 02/06/2025 Documentation [facility] Division of Cardiac Surgery [address] [place] [address], 6th Floor, [address] [place] [address] Cornelia Palacios, TIFFANY 02/05/2025 2:14 PM EDT - 02/05/2025 11:59 PM EDT Hospital Encounter [facility] Saskia - Shelton Morelos 2 [address] [facility], 2nd [place] [address] Renetta Stevens, SUMMER LAW CLERK Discharge Disposition: Home or Self Care 02/05/2025 2:01 PM EDT - 02/05/2025 2:13 PM EDT Hospital Encounter [facility] [address] [facility] [place] [address] Natalie Acosta MD Discharge Disposition: Home or Self Care 02/05/2025 1:00 PM EDT Pre-Admission Testing [facility] Division of Cardiac Surgery [address], [address], [address] [place] [address] Natalie Acosta MD Dyspnea, unspecified type (Primary Dx); Preop testing 02/05/2025 Orders Only [facility] EKG LAB VIRTUAL DEPARTMENT [address] [place] [address] Jovana Luis Preop testing 01/18/2025 Documentation [facility] Division of Cardiac Surgery [address], 6th [address], [address] [place] [address] Renetta Stevens CNP from Last 3 Months Immunizations Immunization Administration [...] Pulse 73 04/03/2025 12:30 PM EST Temperature 36.9 C (98.4 F) 04/03/2025 11:30 AM EST Respiratory Rate 20 04/03/2025 11:30 AM EST Oxygen Saturation 96% 04/03/2025 11:30 AM EST Inhaled Oxygen Concentration 30% 02/19/2025 5 :08 PM EDT Weight 78.9 kg (174 lb) 04/03/2025 12:30 PM EST Height 177.8 cm (5' 10 ) 04/03/2025 11:30 AM EST Body Mass Index 24.97 04/03/2025 11:30 AM EST Plan of Treatment Upcoming Encounters Date Type Department Care Team (Late st Contact Info) Description 04/03/2025 Procedure Pass [facility] Holter Lab [address], 5th [address], [address] [place] [address] 04/03/[address] [facility] [address] [facility], [address] [place] [address] 06/06/2025 8:30 AM EST Appointment [facility] Holter Lab [address], 5th [address], [address] [place] [address] Shagufta Bhakta MD, PhD [address] [facility] [address] [place] [address] [email or web address] 06/21/2025 8:[address] [facility] [address] [facility], [address] [place] [address] Shagufta Bhakta MD, PhD [address] [place] [address] [email or web address] Maintenance Due Date Last Done Comments [...] 2024 COVID-19 VACCINE ( - season) 2025 CREATININE LEVEL 02/26/2026 02/26/2025, 10/2024, 02/24/2025, Additional history exists RSV VACCINE (1 - 1-dose 75+ series) 2049 HEPATITIS A VACCINES Aged Out No long er eligible based on patient's age to complete this topic HIB VACCINES Aged Out No longer eligi ble based on patient's age to complete this topic IPV VACCINES Aged Out No longer eligi ble based on patient's age to complete this topic MENINGOCOCCAL VACCINES (ACWY) Aged Out No longer eligible based on patient's age to complete this topic MENINGOCOCCAL VACCINES (B) Aged Out N o longer eligible based on patient's age to complete this topic Medical Devices Implanted Type Area Optical Laboratory Manager Device Identifier Shelf Expiration Date Model / Serial / Lot Ring Annuloplasty 32mm Mitral Jazmín Gu[employer] Eligoy Band Silicone Rubber Polyester Cover - [id number] Implanted:Qty: 1 on 02/19/2025 by Natalie Acosta MD at [facility] Left: Heart [employer] 10/31/2029 [id number] / [id number] / Procedures Procedure Name Priority Date/Time Associated Diagnosis Comments XR CHEST PA AND LATERAL 2 VIEWS Routine 04/03/2025 10:32 AM EST Mitral valve insufficiency, unspecified etiology CBC Routine 02/26/2025 6:04 AM EDT MAGNESIUM Routine 02/26/2025 6:04 AM EDT BASIC METABOLIC PANEL (BMP) Routine 02/26/2025 6:04 AM EDT HC ANTIBODY SCREEN RBC EACH SERUM TECHNIQUE Routine 02/26/2025 6:04 AM EDT ECG 12-LEAD Routine 02/26/2025 1:38 AM EDT XR CHEST PA AND LATERAL 2 VIEWS Routine 02/25/2025 3:36 PM EDT CBC Routine 02/25/2025 3:55 AM EDT MAGNESIUM Routine 02/25/2025 3:55 AM EDT BASIC METABOLIC PANEL (BMP) Routine 02/25/2025 3:55 AM EDT ECG 12-LEAD Routine 02/25/2025 1:48 AM EDT ECG 12-LEAD Routine 02/24/2025 6:26 AM EDT MAGNESIUM Routine 02/24/2025 4:10 AM EDT BASIC METABOLIC PANEL (BMP) Routine 02/24/2025 4:10 AM EDT CBC Routine 02/24/2025 4:00 AM EDT MAGNESIUM Routine 02/23/2025 5:21 PM EDT BASIC METABOLIC PANEL (BMP) Routine 02/23/2025 5:21 PM EDT ECG 12-LEAD STAT 02/23/2025 11:47 AM EDT XR CHEST PA AND LATERAL 2 VIEWS Routine 02/23/2025 5:45 AM EDT MAGNESIUM Routine 02/23/2025 4:58 AM EDT CBC Routine 02/23/2025 4:58 AM EDT BASIC METABOLIC PANEL (BMP) Routine 02/23/2025 4:58 AM EDT ECG 12-LEAD Routine 02/23/2025 4:45 AM EDT XR CHEST PORTABLE Routine 02/22/2025 11: 45 AM EDT LACTIC ACID (LACTATE) Routine 02/22/2025 7:37 AM EDT MAGNESIUM Routine 02/22/2025 7:37 AM EDT BASIC METABOLIC PANEL (BMP) Routine 02/22/2025 7:37 AM EDT ECG 12-LEAD Routine 02/22/2025 6:23 AM EDT XR CHEST PORTABLE Routine 02/22/2025 5:1 7 AM EDT HC BLOOD TYPING SEROLOGIC ABO Routine 02/22/2025 1:47 AM EDT LFTS (HEPATIC PANEL) Routine 02/22/2025 1:43 AM EDT PHOSPHORUS Routine 02/22/2025 1:43 AM EDT MAGNESIUM Routine 02/22/2025 1:43 AM EDT BASIC METABOLIC PANEL (BMP) Routine 02/22/2025 1:43 AM EDT PTT Routine 02/22/2025 1:43 AM EDT PT-INR Routine 02/22/2025 1:43 AM EDT CBC Routine 02/22/2025 1:43 AM EDT PHOSPHORUS Routine 02/21/2025 3:17 PM EDT MAGNESIUM Routine 02/21/2025 3:17 PM EDT BASIC METABOLIC PANEL (BMP) Routine 02/21/2025 3:17 PM EDT CREAT. COMMENT Routine 02/21/2025 9:42 AM EDT PHOSPHORUS Routine 02/21/2025 9:42 AM EDT MAGNESIUM Routine 02/21/2025 9:42 AM EDT BASIC METABOLIC PANEL (BMP) Routine 02/21/2025 9:42 AM EDT ECG 12-LEAD Routine 02/21/2025 6:04 AM EDT CREAT. COMMENT Routine 02/21/2025 2:06 AM EDT BASIC METABOLIC PANEL (BMP) Routine 02/21/2025 2:06 AM EDT LFTS (HEPATIC [...] 02/20/2025 8:30 PM EDT BASIC METABOLIC PANEL (BMP) Routine 02/20/2025 8:30 PM EDT ARTERIAL BLOOD GAS PLUS Routine 02/20/2025 8:30 PM EDT AMY COMP PROBE PLACED BY ANES W/ COLOR FLOW AND COMP DOPPLER Routine 02/20/2025 3:58 PM EDT Mitral valve insufficiency, unspecified etiology CREAT. COMMENT Routine 02/20/2025 3:51 PM EDT PHOSPHORUS Routine 02/20/2025 3:51 PM EDT MAGNESIUM Routine 02/20/2025 3:51 PM EDT BASIC METABOLIC PANEL (BMP) Routine 02/20/2025 3:51 PM EDT CREAT. COMMENT Routine 02/20/2025 8:58 AM EDT BASIC METABOLIC PANEL (BMP) Routine 02/20/2025 8:58 AM EDT PREPARE RBC STAT 02/20/2025 7:10 AM EDT ECG 12-LEAD Routine 02/20/2025 6:33 AM EDT BASIC METABOLIC PANEL (BMP) Routine 02/20/2025 4:02 AM EDT OXYGEN SATURATION, [...] 02/20/2025 1:33 AM EDT BASIC METABOLIC PANEL (BMP) Routine 02/20/2025 1:33 AM EDT PTT Routine [...] 02/19/2025 2:38 PM EDT BASIC METABOLIC PANEL (BMP) Routine 02/19/2025 2:38 PM EDT MAGNESIUM Routine [...] PROTAMINE TITRATION Routine 02/19/2025 8:44 AM EDT ID ECHO HEART TRANSESOPH PROBE PLACEMT PERF Routine 02/19/2025 8:29 AM EDT ANES SINGLE LUMEN PA LINE - PA LINE Routine 02/19/2025 8:28 AM EDT ANES VENOUS SHEATH - PA LINE Routine 02/19/2025 8:28 AM EDT ID INSERT/PLACE FLOW DIRECT CATH PERF Routine 02/19/2025 8:28 AM EDT AIRWAY PLACEMENT Routine 02/19/2025 7:47 AM EDT POCT HEPARIN DOSE RESPONSE Routine 02/19/2025 7:45 AM EDT BASIC METABOLIC PANEL (BMP) STAT 02/19/2025 7:45 AM EDT LACTATE (BLOOD GAS) STAT 02/19/2025 7 :45 AM EDT ARTERIAL BLOOD GAS PLUS STAT 02/19/2025 7:45 AM EDT ID MITRALPLASTY W CP BYPASS 02/19/2025 7:33 AM EDT Mitral valve prolapse Special Needs CPT Code for : Minimally Invasive MV Repair 68426 Robotic ID INSERT CATH ART PERCUT SHORTTERM PERF Routine 02/19/2025 7:26 AM EDT ANESTHESIA POINT OF CARE IMAGE CAPTURE Routine 02/19/2025 6:36 AM EDT OUTSIDE LAB Routine 02/14/2025 3:14 PM EDT ECG 12-LEAD Routine 02/05/2025 2:28 PM EDT Preop testing XR CHEST PA AND LATERAL 2 VIEWS Routine 02/05/2025 2:20 PM EDT Dyspnea, unspecified type Preop testing ABO AND RH Routine 02/05/2025 2:11 PM EDT HC BLOOD TYPING SEROLOGIC ABO Routine 02/05/2025 2:11 PM EDT Preop testing CBC AND DIFFERENTIAL Routine 02/05/2025 2:11 PM EDT Preop testing COMPREHENSIVE METABOLIC PANEL (CMP) Routine 02/05/2025 2:11 PM EDT Preop testing MAGNESIUM Routine 02/05/2025 2:11 PM EDT Preop testing HEMOGLOBIN A1C Routine 02/05/2025 2:11 PM EDT Preop testing PT-INR Routine 02/05/2025 2:11 PM EDT Preop testing PTT Routine 02/05/2025 2:11 PM EDT Preop testing MRSA/MSSA PRE-OP PCR Routine 02/05/2025 2:11 PM EDT Preop testing from Last 3 Months Results * XR CHEST PA AND LATERAL [...] clinician's provided indication for this examination in [facility]: S/P Cardiac Surgery COMPARISON: XR CHEST PA [...] clinician's provided indication for this examination in [facility]:S/P Cardiac Surgery COMPARISON: XR CHEST PA AND [...] IMG XR CHEST Final R esult * (ABNORMAL) CBC (02/26/2025 6:04 AM EDT) Only the most recent of9 resultswithin the time period is included. WBC 5.75 4.00 - 11.00 K/uL [facility] RBC 3.39(L) 4.50 - 5.90 M/uL [facility] HGB 9.2(L) 13.5 - 17.5 g/dL [facility] HCT 28.8(L) 41.0 - 53.0 % [facility] PLT 236 150 - 450 K/uL [facility] MCV 85.0 80.0 - 100.0 fL [facility] MCH 27.1 27.0 - 31.0 pg [facility] MCHC 31.9(L) 32.0 - 36.0 g/dL [facility] RDW 20.9(H) 11.5 - 14.5 % [facility] MPV 9.3 8.4 - 12.0 fL [facility] NRBC 0.00 0.00 /100 WBCs [facility] ABSOLUTE NRBC 0.00 0.00 K/uL [facility] Blood 02/26/2025 6:04 AM EDT 02/26/2025 6:57 AM EDT us Marlyn Garrido SUMMER LAW CLERK, DNP LAB BLOOD BKR ORDERABLES Fi nal Result Performing Organization Address City/[facility]/ZIP Co de Phone Number [address] [address] * Type and Screen (ABO,Rh,Antibody Screen) (02/26/2025 6:04 AM EDT) Only the most recent of3 resultswithin the time period is included. Expiration Date of Sample 03/01/2025 11:59 PM [facility] Antibody Screen Negative 02/26/2025 7:27 AM EDT [facility] Resulting Agency [facility] ABO O 02/26/2025 7:11 AM EDT [facility] Rh Positive 02/26/2025 7:11 AM EDT [facility] Blood 02/26/2025 6:04 AM EDT 02/26/2025 6:23 AM EDT us Pita Barney PA-C LAB BLOOD BANK TEST ORDER OZZY Final Result [address] [address] * Magnesium (02/26/2025 6:04 AM EDT) Only the most recent of15 resultswithin the time period is included. MAGNESIUM 2.1 1.7 - 2.4 mg/dL [facility] Blood 02/26/2025 6:04 AM EDT 02/26/2025 6:57 AM EDT Marlyn Garrido CNP, DNP LAB BLOOD BKR ORDERABLES nal Result Performing Organization Address [facility] Co de Phone Number [address] [address] * (ABNORMAL) Basic metabolic panel (02/26/2025 6:04 AM EDT) Only the most recent of17 resultswithin the time period is included. SODIUM 131(L) 135 - 145 mmol/L [facility] POTASSIUM 4.5 3.4 - 5.0 mmol/L [facility] CHLORIDE 94(L) 98 - 108 mmol/L [facility] CO2 30 23 - 32 mmol/L [facility] BUN 16 8 - 25 mg/dL [facility] CREATININE 1.25 0.60 - 1.30 mg/dL [facility] GLUCOSE 105 70 - 110 mg/dL [facility] CALCIUM 9.1 8.5 - 10.5 mg/dL [facility] EGFR 70 >59 mL/min/1. 73m2 [facility] Comment:Estimated glomerular filtration rate calculated using the CKD-EPI refit equation. ANION GAP 7 3 - 17 mmol/L [facility] Blood 02/26/2025 6:04 AM EDT 02/26/2025 6:57 AM EDT Marlyn Garrido CNP, [facility] LAB BLOOD BKR ORDERABLES nal Result Performing Organization Address [facility] Co de Phone Number [address] [address] * ECG 12-LEAD (02/26/2025 1:38 AM EDT) Only the most recent of9 resultswithin the time period is included. Systolic Blood Pressure 105 mmHg [facility] Diastolic Blood Pressure 59 mmHg [facility] Ventricular Rate EKG/MIN 69 BPM [facility] Atrial Rate 69 BPM [facility] ID Interval 170 ms [facility] QRS Duration 80 ms [facility] QT Interval 426 ms [facility] QTC Interval 456 ms [facility] P [place] 54 degrees [facility] R Wave [place] 66 degrees [facility] T Wave [place] -8 degrees [facility] 02/26/2025 1:38 AM EDT 03/11/2025 10:10 PM EDT Narrative [facility] - 03/11/2025 10:10 PM EDT LOC: [id number] DX: DRUG MONITORING REF: PITA BARNEY NORMAL SINUS RHYTHM POOR R WAVE PROGRESSION WHEN COMPARED WITH ECG OF 25-Feb-2025 01:48, HEART RATE HAS DECREASED us Pita Ector PA-Simon ECG ORDERABLES Final Res ult [facility] * XR CHEST PA AND LATERAL 2 [...] clinician's provided indication for this examination in [facility]: S/P Cardiac Surgery COMPARISON: XR CHEST PORTABLE 2024- [...] clinician's provided indication for this examination in [facility]:S/P Cardiac Surgery COMPARISON: XR CHEST PORTABLE [...] effusions. No pneumothorax. us Gonzalo Parsons PA-C IMNataliia XR CHEST Final R esult * XR Chest Portable (02/22/2025 11:45 AM EDT) Anatomical Region Laterality Modality Chest Computed Radiogr aphy 02/22/2025 2:10 PM EDT Impressions 02/22/2025 5:08 PM EDT Interval removal of right apical chest tube. Small right pneumothorax with air gap measuring 3 mm. Small bilateral pleural effusions, right greater than left. ATTESTATION: Dr. Fabiola Leary as teaching physician, have reviewed the images for this case and if necessary edited the report originally created by Adeline Fernández. Narrative 02/22/2025 5:08 PM EDT XR CHEST PORTABLE Referring clinician's provided indication for this examination in [facility]: Chest Tube Removal COMPARISON: XR CHEST PORTABLE [...] clinician's provided indication for this examination in [facility]:Chest Tube Removal COMPARISON: XR CHEST PORTABLE 05:15:30.000 [...] originallycreated by Adeline Fernández. us Lavinia You XEROX MACHINE ASSEMBLER IMG XR CHEST Final Resu lt * Lactate (02/22/2025 7:37 AM EDT) LACTIC ACID (MMOL/L) 0.8 0.5 - 2.0 mmol/L [facility] Blood 02/22/2025 7:37 AM EDT 02/22/2025 7:45 AM EDT us Graciela Peoples PA-C LAB BLOOD BKR ORDERABLES Final Result [facility] [address] [place] [address] * XR Chest Portable (02/22/2025 5:17 AM [...] clinician's provided indication for this examination in [facility]: Post-Op COMPARISON: XR CHEST PORTABLE ; [...] appearance. Procedure Note Fabiola Morrison MD - 10/03/2025 XR CHEST PORTABLE Referring clinician's provided indication for this examination in Epic:Post-Op COMPARISON: XR CHEST PORTABLE ; CT CARDIAC [...] edited the report originallycreated by Whitley Jaramillo. Adolfo Whyte NP IMG XR CHEST Final Result * (ABNORMAL) LFTs (hepatic panel) (02/22/2025 1:43 AM EDT) Only the most recent of4 resultswithin the time period is included. ALBUMIN 3.2(L) 3.3 - 5.0 g/dL [facility] TOTAL BILIRUBIN 0.3 0.0 - 1.0 mg/dL [facility] DIRECT BILIRUBIN 0.1 0.0 - 0.3 mg/dL [facility] ALKALINE PHOSPHATASE 72 45 - 115 U/L [facility] AST 34 10 - 40 U/L [facility] ALT 32 10 - 55 U/L [facility] TOTAL PROTEIN 6.2 6.0 - 8.3 g/dL [facility] GLOBULIN 3.0 1.9 - 4.1 g/dL [facility] Blood 02/22/2025 1:43 AM EDT 02/22/2025 1:56 AM EDT Graciela Peoples PA-C LAB BLOOD BKR ORDERABLES Final Result Performing Organization Address City/[facility] Co de Phone Number [address] [address] * PTT (02/22/2025 1:43 AM EDT) Only the most recent of6 resultswithin the time period is included. APTT 29.2 24.0 - 37.5 sec [facility] Comment:Check MAR for the ta rget range that is ordered for your patient. Blood 02/22/2025 1:43 AM EDT 02/22/2025 1:56 AM EDT Graciela Peoples PA-C LAB BLOOD BKR ORDERABLES Final Result Performing Organization Address [facility] Co de Phone Number [address] [address] * PT-INR (02/22/2025 1:43 AM EDT) Only the most recent of6 resultswithin the time period is included. PT 11.3 10.0 - 13.0 sec [facility] INR 1.0 0.9 - 1.1 [facility] Blood 02/22/2025 1:43 AM EDT 02/22/2025 1:56 AM EDT Graciela Billsmaritza LANDERS-C LAB BLOOD BKR ORDERABLES Final Result Performing Organization Address City/[facility] CENTER Co de Phone Number [address] [address] * (ABNORMAL) Phosphorus (02/22/2025 1:43 AM EDT) Only the most recent of8 resultswithin the time period is included. PHOSPHORUS 2.3(L) 2.6 - 4.5 mg/dL [facility] Blood 02/22/2025 1:43 AM EDT 02/22/2025 1:56 AM EDT Graciela Peoples PA-C LAB BLOOD BKR ORDERABLES Final Result Performing Organization Address City/[facility]/ZIP Co de Phone Number [address] [address] * Creat. Comment (02/21/2025 9:42 AM EDT) Only the most recent of5 resultswithin the time period is included. Creat Comment Increasing Creatinine Value on your Patient: The calculated GFR may thus overestimate the true GFR and should not be used to guide medication dosing. Negative [facility] 02/21/2025 9:42 AM EDT 02/21/2025 9:47 AM EDT us Graciela Peoples PA-C LAB BLOOD ORDERABLES Jeanine l Result Performing Organization Address [facility] Co de Phone Number [address] [address] * Prepare RBC (02/21/2025 12:41 AM EDT) Only the most recent of2 resultswithin the time period is included. Product Code [id number] 02/21/2025 12:41 AM EDT [facility] Unit Number [id number] 02/22/20 12:41 AM EDT [facility] Crossmatch Interpretation Compatible 02/18/2025 12:03 PM EDT [facility] Product Status Issued, Final 12:41 AM EDT [facility] ABO/Rh of Unit OPOS 02/21/2025 12:41 AM EDT [facility] Expiration Date/Time [id number] 02/21/2025 12:41 AM EDT [facility] Unit Barcode 5100 02/21/2025 12:41 AM EDT [facility] Product Code [id number] 02/21/2025 12:41 AM EDT [facility] Unit Number [id number] 02/22/20 12:41 AM EDT [facility] Crossmatch Interpretation Compatible 02/18/2025 12:03 PM EDT [facility] Product Status Issued, Final 12:41 AM EDT [facility] ABO/Rh of Unit OPOS 02/21/2025 12:41 AM EDT [facility] Expiration Date/Time [id number] 02/21/2025 12:41 AM EDT [facility] Unit Barcode 5100 02/21/2025 12:41 AM EDT [facility] 02/05/2025 3:3 3 PM EDT us Blood Bank BLOOD BANK PRODUCT ORDERABLES Fi nal Result [address] [address] * XR Chest Portable (02/20/2025 10:18 PM [...] clinician's provided indication for this examination in [facility]: Post-Op COMPARISON: XR CHEST PORTABLE 02:46:11.000 [...] clinician's provided indication for this examination in [facility]:Post-Op COMPARISON: XR CHEST PORTABLE 02:46:11.000 FINDINGS: [...] post robotic mitral valve repair. Adolfo Whyte XEROX MACHINE ASSEMBLER IMG XR CHEST Final Result * (ABNORMAL) Arterial blood gas PLUS (02/20/2025 8:30 PM EDT) Only the most recent of10 resultswithin the time period is included. FIO2 2L NC FIO2/L min [facility] PH 7.37 7.35 - 7.45 [facility] PCO2 41 35 - 42 mm[Hg] [facility] PO2 118(H) 80 - 100 mm[Hg] [facility] Base Excess, unspecified NEG 0.0 - 3.0 mmol/L [facility] Comment:1.8NEG HCO3, unspecified 23(L) 24 - 30 mmol/L [facility] SODIUM 131(L) 135 - 145 mmol/L [facility] POTASSIUM 4.3 3.5 - 5.0 mmol/L [facility] IONIZED CALCIUM 1.11(L) 1.14 - 1.30 mmol/L [facility] Glucose, whole bld 139(H) 70 - 110 mg/dL [facility] HGB (BG) 9.7(L) 13.5 - 17.5 g/dl [facility] O2 Sat (SO2, arterial) 98.7 94.0 - 99.0 % [facility] Blood 02/20/2025 8:30 PM EDT 02/20/2025 8:38 PM EDT Graciela Peoples PA-C LAB BLOOD ORDERABLES Jeanine sim Result [facility] [address] [place] [address] * Lactate (blood gas) (02/20/2025 8:30 PM EDT) Only the most recent of19 resultswithin the time period is included. Lactate, blood 1.6 0.5 - 2.0 mmol/L [facility] Blood 02/20/2025 8:30 PM EDT 02/20/2025 8:38 PM EDT us Graciela Minor Shelton PA-C LAB BLOOD BKR ORDERABLES Final Result [address] [address] * AMY COMP PROBE PLACED BY ANES [...] well. There were no probe complications noted. Gallery Or Museum Curator Attestation: I have reviewed the images and [...] mixed bld) 58.6(L) 65.0 - 75.0 % [facility] Blood 02/20/2025 3:59 AM EDT 02/20/2025 4:09 AM EDT Graciela Peoples PA-C LAB BLOOD BKR ORDERABLES Final Result [facility] [address] [place] [address] * (ABNORMAL) POCT Glucose (02/20/2025 3:17 AM EDT) Only the most recent of2 resultswithin the time period is included. Glucose, POCT 163(H) 70 - 110 mg/dL [facility] 02/20/2025 3:17 AM EDT 02/20/2025 3:19 AM EDT us Natalie Acosta MD POINT OF CARE TEST ORDERA BLES Final Result [address] [address] * XR Chest Portable (02/20/2025 2:47 AM [...] the report originallycreated by Luis Ireland. us Graciela Billsmaritza Peoples PA-C IMG XR CHEST Final Res ult * (ABNORMAL) Lipase (02/20/2025 1:33 AM EDT) Only the most recent of2 resultswithin the time period is included. LIPASE 83(H) 13 - 60 U/L [facility] Blood 02/20/2025 1:33 AM EDT 02/20/2025 1:39 AM EDT us Graciela Billsmaritza Peoples PA-C LAB BLOOD BKR ORDERABLES Final Result [address] [address] * XR Chest Portable (02/19/2025 2:55 PM [...] No Special Requests 02/19/2025 2:38 PM EDT [facility] MRSA Nasal Culture NEGATIVE FOR MRSA 02/20/2025 1:35 PM EDT [facility] Other (Nasal) 02/19/2025 2:4 0 PM EDT 02/19/2025 5:08 PM EDT Graciela Peoples PA-C LAB MICROBIOLOGY CULTURE ORDERABLES Final Result Performing Organization Address City/[facility] Co de Phone Number [address] [address] * Vancomycin Resistant Enterococci (VRE), Rectal Screen (02/19/2025 2:40 PM EDT) Special Requests No Special Requests 02/19/2025 2:38 PM EDT [facility] VRE Rectal Culture NEGATIVE FOR VRE 02/20/2025 3:16 PM EDT [facility] Stool (Rectal) 02/19/2025 2: 40 PM EDT 02/19/2025 5:07 PM EDT Graciela Peoples PA-C LAB MICROBIOLOGY CULTURE ORDERABLES Final Result Performing Organization Address [facility] Co de Phone Number [address] [address] * (ABNORMAL) Fibrinogen (02/19/2025 1:51 PM EDT) FIBRINOGEN 166(L) 200 - 400 mg/dL [facility] Blood 02/19/2025 1:51 PM EDT 02/19/2025 1:57 PM EDT Colin METZ LAB BLOOD BKR ORDERABLES Final Result Performing Organization Address [facility] Co de Phone Number [address] [address] * POCT ACT from cardiac OR (02/19/2025 1:48 PM EDT) Only the most recent of11 resultswithin the time period is included. ACT FROM CARDIAC OR 106 90 - 130 sec [facility] 02/19/2025 1:48 PM EDT 02/19/2025 1:47 PM EDT Natalie Acosta MD LAB POCT ENTER/EDIT ORDER OZZY Final Result Performing Organization Address City/[facility]/ZIP Co de Phone Number [address] [address] * POCT Heparin Protamine Titration (02/19/2025 1:48 PM EDT) Only the most recent of11 resultswithin the time period is included. Heparin Protamine Titration 0.0 u/ml [facility] Misc Test Ref Range 0.0-1.2 u/ml [facility] Comment (Coag) Red [facility] 02/19/2025 1:48 PM EDT 02/19/2025 1:47 PM EDT Natalie Acosta MD POINT OF CARE TEST ORDERA BLES Final Result Performing Organization Address [facility] Co de Phone Number [address] [address] * (ABNORMAL) PUMP BLOOD GAS PLUS (02/19/2025 1:03 PM EDT) Only the most recent of9 resultswithin the time period is included. FIO2/FLOW CPB FIO2/L min [facility] TEMP. 37.0 deg C [facility] PH(UNCORRECTED) 7.30 [facility] PH 7.30(L) 7.32 - 7.45 [facility] PCO2(UNCORRECTE D) 46 mm[Hg] [facility] PCO2 46 35 - 50 mm[Hg] [facility] PO2(UNCORRECTED ) 260 mm[Hg] [facility] PO2 260(H) 40 - 90 mm[Hg] [facility] Base Excess, unspecified NEG 0.0 - 3.0 mmol/L [facility] Comment:4.2NEG HCO3, unspecified 22(L) 24 - 30 mmol/L [facility] SODIUM 134(L) 135 - 145 mmol/L [facility] POTASSIUM 4.8 3.5 - 5.0 mmol/L [facility] HGB (BG) 7.8(L) 13.5 - 17.5 g/dl [facility] IONIZED CALCIUM 1.26 1.14 - 1.30 mmol/L [facility] Glucose, whole bld 161(H) 70 - 110 mg/dL [facility] SO2, unspecified 99.8 94.0 - 99.9 % [facility] Comment: SO2 Reference Range: Arterial: 94.0-99.9 Venous: 60.0-85.0 Blood 02/19/2025 1:03 PM EDT 02/19/2025 1:08 PM EDT Colin METZ LAB BLOOD ORDERAB[place] [address] * RBCs (02/19/2025 12:52 PM EDT) Only the most recent of2 resultswithin the time period is included. us Colin METZ NURSING TREATMENT ORDERABLES - ASSIGN Final Result * Anatomic Pathology (Non-MGB) (02/19/2025 10:09 AM EDT) [place] [address] Surgical Pathology Report Patient Name: JOSE WINSLOW : 1975 (Age: 50) Sex: M [facility]: [facility] B08 Institution: [facility] Date of Operation: 02/19/2025 Date of Reported: [...] thickness. No calcifications or vegetations are identified. Commercial [employer] Paralegal sections are wrapped and are submitted in A1. Grossed by: Anglea Spangler [facility] Clinical History Mitral valve prolapse [facility] Final Diagnosis A. P2 CHORD AND LEAFLET: Myxomatous degeneration. [facility] Gross Description Received fresh labeled Jose Winslow , and P2 chord and leaflet is a 2.8 x 1.7 x 0.5 cm aggregate of white rubbery tissue fragments admixed with fragments of chordae tendonae, ranging from 0.1-0.2 cm in thickness. No calcifications or vegetations are identified. Commercial [employer] Paralegal sections are wrapped and are submitted in A1. [facility] Conversion Type (Heart Valve, Chinik Mitral) 02/19/2025 10:09 AM EDT 02/19/2025 2:15 PM EDT us Natalie Acosta MD LAB PATHOLOGY ORDERABLES Edited Result - Final [address] [address] * (ABNORMAL) VENOUS BLOOD GAS PLUS (02/19/2025 8:55 AM EDT) FIO2 CPB FIO2/L min [facility] PH 7.34 7.30 - 7.40 [facility] PCO2 50 38 - 50 mm[Hg] [facility] PO2 51(H) 35 - 50 mm[Hg] [facility] Base Excess, unspecified 0.1 0.0 - 3.0 mmol/L [facility] HCO3, unspecified 26 24 - 30 mmol/L [facility] SODIUM 136 135 - 145 mmol/L [facility] POTASSIUM 4.1 3.5 - 5.0 mmol/L [facility] IONIZED CALCIUM 0.88(L) 1.14 - 1.30 mmol/L [facility] Glucose, whole bld 137(H) 70 - 110 mg/dL [facility] HGB (BG) 7.3(L) 13.5 - 17.5 g/dl [facility] SO2-VENOUS (SO2, venous) 78.8 60.0 - 85.0 % [facility] Blood 02/19/2025 8:55 AM EDT 02/19/2025 9:01 AM EDT us Colin METZ LAB BLOOD ORDERABLES Final Res ult [facility] [address] [place] [address] * ID ECHO HEART TRANSESOPH PROBE PLACEMT PERF (02/19/2025 8:29 AM EDT) Maria De Jesus Julio DO - 02/19/2025 8:29 AM EDT Maria De Jesus Aparicio DO 02/19/2025 8:30 AM Transesophageal Echocardiogram Procedure Note: Performed by: anesthesiologist Anesthesiologist: Colin Layne MBBS [place] Protocol performed: consent obtained, patient identified with 2 identifiers, correct procedure verified, correct site and laterality confirmed, verified equipment, coagulation status reviewed and implant history reviewed. Placement notes: probe advanced in esophagus atraumatic Colin METZ ID ANESTHESIA Final Result * ID INSERT/PLACE FLOW DIRECT CATH PERF, ANES VENOUS SHEATH - PA LINE, ANES SINGLE LUMEN PA LINE - PALINE (02/19/2025 8:28 AM EDT) Maria De Jesus Julio DO - 02/19/2025 8:28 AM EDT Maria De Jesus Aparicio DO 02/19/2025 8:29 AM Pulmonary Artery Line Placement Procedure Note: Start time: 02/19/2025 8:03 AM Anesthesiologist: Colin Layne MBBS Fellow/Resident/CUTTING MACHINE TENDER DECORATIVE: Maria De Jesus Aparicio DO Performed: fellow/resident/CUTTING MACHINE TENDER DECORATIVE [place] Protocol performed: consent obtained, patient identified with [...] seconds? yes personal protection worn? yes assistant winemaker followed standard precautions? yes sterile technique used [...] free fluid flow Complications?: No Colin METZ ID ANESTHESIA Final Result * ANES ETT DOUBLE LUMEN - AIRWAY LDA (02/19/2025 7:47 AM EDT) Narrative Maria De Jesus Aparicio DO - 02/19/2025 7:47 AM EDT Maria De Jesus Aparicio DO 02/19/2025 8:24 AM Airway Placement Procedure Note: Patient was not difficult to intubate. Procedure performed by: fellow/resident/CUTTING MACHINE TENDER DECORATIVE Anesthesiologist: Colin Layne MBBS Fellow/Resident/CUTTING MACHINE TENDER DECORATIVE: Maria De Jesus Aparicio DO Airway procedure [...] of dental injury? no Complications observed? no Colin METZ ID ANESTHESIA Final Result * POCT heparin dose response (02/19/2025 7:45 AM EDT) ACT FROM CARDIAC OR 127 90 - 130 sec [facility] Projected heparin concentration 3.0 u/ml [facility] Heparin dose response 109 50 - 120 sec [facility] 02/19/2025 7:45 AM EDT 02/19/2025 7:51 AM EDT Natalie Acosta MD POINT OF CARE TEST ORDERA BLES Final Result [place] [address] [address] * ID INSERT CATH ART PERCUT SHORTTERM PERF (02/19/2025 7:26 AM EDT) Narrative Maria De Jesus Aparicio DO - 02/19/2025 7:26 AM EDT Maria De Jesus Aparicio DO 02/19/2025 7:26 AM Arterial Line Placement Procedure Note: Location: pre-op Procedure performed by: fellow/resident/CUTTING MACHINE TENDER DECORATIVE Anesthesiologist: Colin Layne MBBS Fellow/Resident/CUTTING MACHINE TENDER DECORATIVE: Maria De Jesus Aparicio DO Indication(s): hemodynamic monitoring, arterial blood gas and frequent labs [place] Protocol performed: consent obtained, patient identified with [...] with no immediate complications Transducer type: regular us Colin METZ ID ANESTHESIA Final Result * ANESTHESIA POINT OF CARE IMAGE CAPTURE (02/19/2025 6:36 AM EDT) Anatomical Region Laterality Modality Ultrasound Narrative 02/19/2025 6:36 AM EDT Maria De Jesus Aparicio DO 02/19/2025 6:36 AM Anesthesia Point of Care Image Capture Performed by: Maria De Jesus Aparicio DO Authorized by: Colin Layne MBBS Accession Number: [id number] us Colin METZ IMG POINT OF CARE EXAMS Final Result * Outside Lab (02/14/2025 3:14 PM EDT) us Historical Provider MD LAB BLOOD BKR ORDERABLES Final Result * XR CHEST PA AND LATERAL 2 VIEWS (02/05/2025 2:20 PM EDT) Anatomical Region Laterality Modality Chest Computed Radiogr aphy 02/05/2025 2:26 PM EDT Impressions 02/05/2025 4:40 PM EDT Clear lungs. No evidence of pneumonia. Borderline enlargement of the cardiac silhouette. ATTESTATION: Dr. Sagrario Leary as teaching physician, have reviewed the images for this case and if necessary edited the report originally created by Keith Eisenberg. Narrative 02/05/2025 4:40 PM EDT XR CHEST PA AND LATERAL 2 VIEWS Referring clinician's provided indication for this examination in [facility]: Dyspnea on exertion; preoperative evaluation COMPARISON: CT [...] clinician's provided indication for this examination in [facility]:Dyspnea on exertion; preoperative evaluation COMPARISON: CT [...] Borderline enlargement of the cardiac silhouette. ATTESTATION: Dr. Sagrario Leary as teaching physician, have reviewedthe images for this case and if necessary edited the report originallycreated by Keith Eisenberg. Renetta Stevens SUMMER LAW CLERK IMG XR CHEST Final Res ult * (ABNORMAL) MRSA/MSSA PRE-OP PCR (02/05/2025 2:11 PM EDT) Pathologist [facility] MRSA PCR SCREEN NEGATIVE FOR MRSA (Methicillin Resistant S.aureus) NEGATIVE FOR MRSA (Methicillin Resistant S.aureus) [facility] MSSA PCR SCREEN POSITIVE FOR MSSA (Methicillin Susceptible S.aureus)(A) NEGATIVE FOR MSSA (Methicillin Susceptible S.aureus) [facility] Comment:This test was conduc jacque as part of Pre-Operative Screening for Staphylococcus aureus. Please direct any questions regarding this result to the Ordering Provider. Nasal (Nasal) 02/05/2025 2:1 1 PM EDT 02/05/2025 5:14 PM EDT us Renetta Stevens SUMMER LAW CLERK LAB GENERAL ORDERABLES Fi nal Result [facility] [address] [place] [address] * (ABNORMAL) Comprehensive metabolic panel (02/05/2025 2:11 PM EDT) SODIUM 140 135 - 145 mmol/L [facility] POTASSIUM 4.2 3.4 - 5.0 mmol/L [facility] CHLORIDE 102 98 - 108 mmol/L [facility] CO2 26 23 - 32 mmol/L [facility] BUN 12 8 - 25 mg/dL [facility] CREATININE 1.31(H) 0.60 - 1.30 mg/dL [facility] GLUCOSE 97 70 - 110 mg/dL [facility] ALBUMIN 4.2 3.3 - 5.0 g/dL [facility] TOTAL PROTEIN 7.3 6.0 - 8.3 g/dL [facility] CALCIUM 9.1 8.5 - 10.5 mg/dL [facility] ALKALINE PHOSPHATASE 129(H) 45 - 115 U/L [facility] TOTAL BILIRUBIN 0.3 0.0 - 1.0 mg/dL [facility] AST 27 10 - 40 U/L [facility] ALT 21 10 - 55 U/L [facility] GLOBULIN 3.1 1.9 - 4.1 g/dL [facility] EGFR 66 >59 mL/min/1. 73m2 [facility] Comment:Estimated glomerular filtration rate calculated using the CKD-EPI refit equation. ANION GAP 12 3 - 17 mmol/L [facility] 02/05/2025 2:11 PM EDT 02/05/2025 7:10 PM EDT Renetta Stevens SUMMER LAW CLERK LAB BLOOD BKR ORDERABLES Final Result Performing Organization Address City/[facility]/ZIP Co de Phone Number [address] [address] * ABO and Rh (02/05/2025 2:11 PM EDT) Expiration Date of Sample 02/22/2025 11:59 PM [facility] ABO O 02/21/2025 12:00 PM EDT [facility] Rh Positive 02/21/2025 12:00 PM EDT [facility] Comment:Patient Transfused, specimen exp. date updated Resulting Agency [facility] 02/05/2025 2:11 PM EDT 02/05/2025 3:33 PM EDT Blood Bank LAB BLOOD BANK TEST ORDERABLES F inal Result Performing Organization Address [facility] Co de Phone Number [address] [address] * (ABNORMAL) CBC and differential (02/05/2025 2:11 PM EDT) WBC 5.50 4.00 - 11.00 K/uL [facility] RBC 3.80(L) 4.50 - 5.90 M/uL [facility] HGB 9.4(L) 13.5 - 17.5 g/dL [facility] HCT 32.2(L) 41.0 - 53.0 % [facility] PLT 259 150 - 450 K/uL [facility] MCV 84.7 80.0 - 100.0 fL [facility] MCH 24.7(L) 27.0 - 31.0 pg [facility] MCHC 29.2(L) 32.0 - 36.0 g/dL [facility] RDW 21.8(H) 11.5 - 14.5 % [facility] MPV 10.3 8.4 - 12.0 fL [facility] NRBC 0.00 0.00 /100 WBCs [facility] ABSOLUTE NRBC 0.00 0.00 K/uL [place] [facility] DIFF METHOD [employer] [place] [facility] NEUTS 55.0 48.0 - 76.0 % [facility] LYMPHS 28.7 18.0 - 41.0 % [facility] MONOS 10.5 4.0 - 11.0 % [facility] EOS 3.1 0.0 - 5.0 % [facility] BASOS 1.8(H) 0.0 - 1.5 % [facility] % IMMATURE GRANS 0.9 0.0 - 0.9 % [facility] ABSOLUTE NEUTS 3.02 1.92 - 7.60 K/uL [facility] ABSOLUTE LYMPHS 1.58 0.72 - 4.10 K/uL [facility] ABSOLUTE MONOS 0.58 0.16 - 1.10 K/uL [facility] ABSOLUTE EOS 0.17 0.00 - 0.50 K/uL [facility] ABSOLUTE BASOS 0.10 0.00 - 0.15 K/uL [facility] ABS IMMATURE GRANS 0.05 0.00 - 0.09 K/uL [facility] Blood 02/05/2025 2:11 PM EDT 02/05/2025 7:13 PM EDT us Renetta Stevens SUMMER LAW CLERK LAB BLOOD BKR ORDERABLES Final Result [facility] [address] [place] [address] * Hemoglobin A1c (02/05/2025 2:11 PM EDT) HEMOGLOBIN A1C 5.0 4.3 - 5.6 % [facility] Comment:HbA1c levels 5.7-6.4 % represent pre-diabetes, indicating impaired glucose control and an increased risk of developing diabetes compared with lower HbA1c levels. The diagnostic HbA1c level for diabetes is 6.5% or greater. CALC MEAN BLD GLUC 97 mg/dL [facility] Comment:There is no [facility] normal range for the Calculated Mean Blood Glucose (CMBG), however a HbA1c of 5.6% (upper limit of normal) represents a CMBG of 114 mg/dL. The diagnostic hemoglobin A1c level for diabetes is greater than or equal to 6.5% which represents a CMBG greater than or equal to 140 mg/dL. 02/05/2025 2:11 PM EDT 02/05/2025 6:53 PM EDT us Renetta Stevens SUMMER LAW CLERK LAB BLOOD BKR ORDERABLES Final Result Performing Organization Address City/State/[facility] Co de Phone Number [facility] [address] [place] [address] from Last 3 Months Insurance [facility] OUT OF STATE PPO [facility] OUT [facility] PPO [employer] OUT OF STATE PPO [employer] OUT OF STATE PPO Advance Directives For more information, please contact: [phone] (9AM - 5PM [facility], Tuesday-Tuesday) Documents on File Type Date Recorded Patient Commercial Real [employer] Paralegal Expl anation Healthcare Proxy 02/06/2025 9:14 AM * Full Code (Latest Code Status on File) Date Activated Date Inactivated Comments 02/19/2025 2:37 PM Question Answer Comments Code Status Confirmed With: Patient Code Discussion Comments: Ofelia-op team discussed Care Teams Editing Internship Relationship Specialty Start Date End Date Faye Avelar MD [address] [place] [address] PCP - General Internal Medicine 09/19/23 Shagufta Bhakta MD, PhD [address] [place] [address] [address] [place] [address] [email or web address] [employer] Curator Interventional Cardiology 10/11/23 Waqas Diaz MD [address] [facility] [address] [place] [id number] Gastroenterology 02/14/25 Additional Source Comments The information contained in this document represents components of the legal health record. It is not the complete legal health record.[facility]
--- OUTSIDE RECORDS SUMMARY | 2025-04-03 20:40 | XMS_ITS | Patient Health Record ---
Author Organization [facility] Address [address] [place] [address] Care Team Providers Care Picture Framer Name Role Phone Valentino HATCH, [facility] Primary Care Provider Waqas Cash [phone] Allergies No Known Allergies Results Component Value Reference Range Notes Ferritin Reviewed date:02/14/2025 12:29:57 PM Interpretation: Performing Lab:[facility], [address] [place] [phone] Notes/Report: Ferritin 89 20-250 ng/mL Complete Blood Count Auto Di ff (Not yet reviewed by provider) Interpretation: Performing Lab:[facility], [address] [place] [phone] Notes/Report: White Blood Count 5.5 4.8-10.8 X10*3/uL [...] te Reviewed date:07/13/2024 07:08:00 PM Interpretation: Performing Lab:[address] [phone] Notes/Report: Erythrocyte Sedimentation Rate 27 0-15 MM/HR Patients with polycythemia and many hemoglobin abnormalities may have depressed sed rates whereas patients with anemia may have elevated sed rates. Liver Panel Reviewed date:07/13/2024 07:07:38 PM Interpretation: Performing Lab:[address] [phone] Notes/Report: Bilirubin Total 0.4 0.0-1.0 mg/dL Bilirubin Direct 0.1 0.0-0.5 mg/dL Aspartate Amino Transferase 23 5-37 U/L Alanine Aminotransferase 17 0-40 U/L Total Protein 7.1 6.5-8.0 g/dL Albumin Level 3.8 3.5-5.0 g/dL Alkaline Phosphatase 119 39-117 U/L Basic Metabolic Panel Reviewed date:07/13/2024 07:07:22 PM Interpretation: Performing Lab:[address] [address] Notes/Report: Sodium 139 135-145 mmol/L Potassium 4.1 [...] Protein Reviewed date:07/13/2024 07:07:50 PM Interpretation: Performing Lab:[address] [phone] Notes/Report: C Reactive Protein 0.24 < or = 0.50 mg/dL Folate Reviewed date:07/20/2024 05:23:21 PM Interpretation: Performing Lab:[address] [address] Notes/Report: Folate 12.6 > or = 4.0 ng/mL Reference Values: > or = 4.0 ng/mL < 4.0 ng/mL suggests folate deficiency Methotrexate, aminopterin and folinic acid (leucovorin) are chemotherapeutic agents whose molecular structures are similar to folate; therefore, the [employer] folate assay cannot be used for patients using these drugs. Leukocytes Stool Qualitative Reviewed date:07/24/2024 12:40:57 PM Interpretation: Performing Lab:[address] [phone] Notes/Report: Leukocytes Stool Qualitative NEGATIVE NEGATIVE Calprotectin, Fecal Reviewed date:07/29/2024 04:12:47 PM Interpretation: Performing Lab:[address] [address] Notes/Report: Calprotectin, Fecal 390 Reference Range: <50 [...] borderline values. THIS TEST WAS PERFORMED AT: [facility] [address] [place] [address] BENNIE BEDOLLA MD,PHD,XIOMARA CDiff Gene PCR Reviewed date:07/29/2024 04:12:58 PM Interpretation: Performing Lab:[facility], [address] [place] [phone] Notes/Report: CDiff Gene PCR NEGATIVE Negative If C. difficile strongly suspected despite one negative test, a second test may be sent vs. empiric treatment for C. difficile infection. GI PANEL Reviewed date:07/24/2024 12:40:48 PM Interpretation: Performing Lab:[facility], [address] [place] [phone] Notes/Report: Campylobacter Not Detected Not Detect. Plesiomonas [...] is performed by Multiplexed PCR, utilizing the QUALIA (formerly known as LocalResponse) Array. Complete Blood Count Auto Di ff Reviewed date:08/19/2024 09:34:23 PM Interpretation: Performing Lab:[facility], [address] [place] [phone] Notes/Report: White Blood Count 5.4 4.8-10.8 X10*3/uL [...] te Reviewed date:08/10/2024 06:09:31 PM Interpretation: Performing Lab:[address] [address] Notes/Report: Erythrocyte Sedimentation Rate 38 0-15 MM/HR Patients with polycythemia and many hemoglobin abnormalities may have depressed sed rates whereas patients with anemia may have elevated sed rates. Liver Panel Reviewed date:08/10/2024 06:09:21 PM Interpretation: Performing Lab:[address] [address] Notes/Report: Bilirubin Total 0.3 0.0-1.0 mg/dL Bilirubin Direct 0.1 0.0-0.5 mg/dL Aspartate Amino Transferase 19 5-37 U/L Alanine Aminotransferase 17 0-40 U/L Total Protein 7.3 6.5-8.0 g/dL Albumin Level 3.8 3.5-5.0 g/dL Alkaline Phosphatase 105 39-117 U/L Basic Metabolic Panel Reviewed date:08/10/2024 06:09:03 PM Interpretation: Performing Lab:[address] [address] Notes/Report: Sodium 139 135-145 mmol/L Potassium 4.1 [...] PROFILE Reviewed date:08/10/2024 06:08:36 PM Interpretation: Performing Lab:[address] [address] Notes/Report: Iron 12 45-160 mcg/dL Total Iron Binding Capacity 467 228-428 mcg/dL Percent Iron Saturation 3 15-50 % Unsaturated Iron Binding 455 Ferritin Reviewed date:08/10/2024 06:08:18 PM Interpretation: Performing Lab:[address] [place] [address] Notes/Report: Ferritin 7 20-250 ng/mL C Reactive Protein Reviewed date:08/10/2024 06:08:07 PM Interpretation: Performing Lab:[facility], [address] [place] [phone] Notes/Report: C Reactive Protein 0.28 < or = 0.50 mg/dL Vitamin B12 Reviewed date:08/10/2024 04:20:38 PM Interpretation: Performing Lab:[facility], [address] [place] [phone] Notes/Report: Vitamin B12 802 200-900 pg/mL NORMAL 200-900 PG/ML INDETERMINATE 160-199 PG/ML DEFICIENT < 160 PG/ML Pathology Reviewed date:08/30/2024 06:32:21 PM Interpretation: Performing Lab:[facility], [address] [place] [phone] Notes/Report: Complete Blood Count Auto Di ff Reviewed date:02/25/2025 11:44:52 PM Interpretation: Performing Lab:[facility], [address] [place] [phone] Notes/Report: White Blood Count 6.5 4.8-10.8 X10*3/uL [...] PROFILE Reviewed date:09/24/2024 11:13:18 PM Interpretation: Performing Lab:[facility], [address] [place] [phone] Notes/Report: Iron 36 45-160 mcg/dL Total Iron Binding Capacity 424 228-428 mcg/dL Percent Iron Saturation 8 15-50 % Unsaturated Iron Binding 388 Ferritin Reviewed date:09/22/2024 10:10:47 PM Interpretation: Performing Lab:[facility], [address] [place] [phone] Notes/Report: Ferritin 28 20-250 ng/mL Complete Blood Count Auto Di ff Reviewed date:02/25/2025 11:44:38 PM Interpretation: Performing Lab:[facility], [address] [place] [phone] Notes/Report: White Blood Count 5.4 4.8-10.8 X10*3/uL [...] te Reviewed date:02/16/2025 09:16:23 PM Interpretation: Performing Lab:[address] [address] Notes/Report: Erythrocyte Sedimentation Rate 10 0-15 MM/HR Patients with polycythemia and many hemoglobin abnormalities may have depressed sed rates whereas patients with anemia may have elevated sed rates. Liver Panel Reviewed date:02/16/2025 09:16:12 PM Interpretation: Performing Lab:[address] [address] Notes/Report: Bilirubin Total 0.4 0.0-1.0 mg/dL Bilirubin Direct 0.1 0.0-0.5 mg/dL Aspartate Amino Transferase 35 5-37 U/L Alanine Aminotransferase 36 0-40 U/L Total Protein 7.2 6.5-8.0 g/dL Albumin Level 4.1 3.5-5.0 g/dL Alkaline Phosphatase 129 39-117 U/L Basic Metabolic Panel Reviewed date:02/16/2025 09:15:49 PM Interpretation: Performing Lab:[address] [address] Notes/Report: Sodium 141 135-145 mmol/L Potassium 4.4 [...] PROFILE Reviewed date:02/25/2025 11:44:25 PM Interpretation: Performing Lab:[facility], [address] [place] [phone] Notes/Report: Iron 33 45-160 mcg/dL Total Iron Binding Capacity 399 228-428 mcg/dL Percent Iron Saturation 8 15-50 % Unsaturated Iron Binding 366 C Reactive Protein Reviewed date:02/16/2025 09:15:00 PM Interpretation: Performing Lab:[facility], [address] [place] [address] Notes/Report: C Reactive Protein 0.12 < or [...] W/U Status Risk Notes Problem Rectal bleeding (48232132) Rectal bleeding (K62.5) Active confirmed Problem History of adenomatous polyp of colon (481386027) History of adenomatous polyp of colon (Z86.010) Active confirmed Problem Constipation (01548693) Constipation (K59.00) Active confirmed Problem Diarrhea (79647932) Diarrhea (R19.7) Active con firmed Problem Imaging of gastrointestinal tract abnormal (506677693) Abnormal findings on diagnostic imaging of other parts of digestive tract (R93.3) Active confirmed Problem Helicobacter pylori (22441077) Helicobacter pylori [H. pylori] as the cause of diseases classified elsewhere (B96.81) Active confirmed Problem Diverticular disease of colon (863498577) Diverticulosis of large intestine without perforation or abscess without bleeding (K57.30) Active confirmed Problem Abnormal weight loss (000971169) Abnormal weight loss (R63.4) Active confirmed Problem Duodenitis (12557976) Duodenitis (K29.80) Active confirmed Problem Hemorrhage of rectum and anus (908889034) Rectal bleed (K62.5) Active confirmed Problem Anemia (120684288) Anemia (D64.9) Active confir med Problem Iron deficiency anemia due to chronic blood loss (796807468) 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) Active confirmed Problem Peptic ulcer disease (48381125) Peptic ulcer disease (K27.9) Active confirmed Problem Chronic gastric ulcer (48451770) Chronic gastric ulcer (K25.7) Active confirmed Problem Chronic diarrhea (145956752) Chronic diarrhea (K52.9) Active confirmed Problem Gastric ulcer (258519355) Gastric ulcer (K25.9) Active confirmed Problem Duodenal ulcer disease (84156402) Duodenal ulcer disease (K26.9) Active confirmed Problem Weight decreased (513418060) Loss of weight (R63.4) Active confirmed Problem Gastroesophageal reflux disease with esophagitis (disorder) (507516682) Gastroesophageal reflux disease with esophagitis without hemorrhage (K21.00) Active confirmed Vital Signs Blood pressure diastolic 111 mm Hg 08/30/2024 Height 71 in 08/30/2024 Blood pressure systolic 111 mm Hg 08/30/2024 Weight 174 lbs 08/30/2024 BMI 24.27 kg/m2 08/30/2024 Procedures Procedure Date Ordered Date Performed Result Body Sit e UPPER GI ENDOSCOPY 07/24/2024 N/A COLONOSCOPY 07/24/2024 N/A Encounters Encounter Location Date Provider Diagnosis [facility] Outpatient [address] [place] [phone] 08/23/2024 Waqas Diaz Rectal bleed K62.5 ; 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 ; Diverticulosis of large intestine without perforation or abscess without bleeding K57.30 ; Other hemorrhoids K64.8 ; Hiatal hernia K44.9 and Gastro-esophageal reflux disease without esophagitis K21.9 [facility] [address] [place] [address] 08/30/2024 Waqas Diaz Rectal bleed K62.5 ; Iron deficiency anemia due to chronic blood loss D50.0 ; Abnormal weight loss R63.4 ; Gastric ulcer K25.9 and Constipation K59.00 [facility] [address] [place] [phone] 06/21/2024 Waqas Diaz Diarrhea R19.7 ; Rec keeley bleeding K62.5 and Folate deficiency E53.8 [facility] [address] [place] [phone] 07/04/2024 Waqas Diaz [facility] [address] [place] [phone] 07/24/2024 Waqas Diaz Diarrhea R19.7 ; Rec keeley bleeding K62.5 ; Anemia D64.9 and Peptic ulcer disease K27.9 [facility] [address] [place] [phone] 08/21/2024 Waqas Diaz [facility] [address] [place] [phone] 08/30/2024 Waqas Diaz [facility] [address] [place] [phone] 09/02/2024 Waqas Diaz [facility] [address] [place] [phone] 11/12/2024 Waqas Diaz [facility] [address] [place] [phone] 02/11/2025 Waqas Emily Rectal bleeding K62. 5 [facility] [address] [place] [phone] 03/05/2025 Waqas Diaz Assessments Encounter Date Diagnosis [...] week treatmernt then stay on omeporazole 20mg ocean transportation intermediary for now. Overall, Heath currently appears quite [...] w DIFF 02/11/2025 SED RATE (ESR) 02/11/2025 SED RATE (ESR) [...] Name:Waqas Diaz , 06/19/2025 03:40:00 PM, [address], [address], [place], [address], Insurance Providers Payer Name Payer Address Payer Phone Subscriber Number Group Number Insured Name Patient Relationship to Insured Coverage Start Date Coverage End Date [facility] [address] [place] [address] [phone] [id number] JOSE WINSLOW Self - patient is the insured Medical (General) History Medical History History ICD Code Mitral valve insufficiency-- scheduled for surgery for a mitral valve repair at [facility] on 04/24/2024--has initially been seeing Dr. Doherty but was then referred to [facility] for his surgery HTN Denies PA,DM,CVA,Lung disease,renal dise ase Chronic diarrhea-colonoscopy as below--negative [...]
--- OUTSIDE RECORDS SUMMARY | 2025-04-03 20:40 | XMS_ITS | Encounter Summary ---
Author Organization [facility] Address [address] [facility] [address] [place] [address] Phone Care Team Providers Care Print And Pattern Designer Name Role Phone Faye Avelar MD Primary Care Provider [phone] Shagufta Bhakta MD, PhD Unavailable [phone] Waqas Diaz MD Unavailable [phone] Encounter Details Date Type Department Care Team (Late st Contact Info) Description 09/22/2023 Procedure Pass [facility] Cardiac US [address] [place] [address] Social History Tobacco Use Types Packs/Day Years Used Date Smoking Tobacco: Former Cigarettes Q uit: 07/2023 Smokeless Tobacco: Never Alcohol Use Standard Drinks/Week Comments Yes 2 (1 standard drink = 0.6 oz pur e alcohol) Education Answer Date Recorded Are you interested in more education? Not on canleo e 09/21/2023 Are you concerned about learning? [...] [facility] [address] [facility], [address] [place] [address] 04/03/2025 Procedure Pass [facility] Cardiology [address] [facility], [address] [place] [address] 06/06/2025 8:30 AM EST Appointment [facility] Holter Lab [address] [facility], [address] [place] [address] Shagufta Bhakta MD, PhD [address] [facility] [address] [place] [address] [email or web address] 06/21/2025 8:00 AM EST Appointment [facility] Cardiology [address] [facility], [address] [place] [address] Shagufta Bhakta MD, PhD [address] [facility] [address] [place] [address] [email or web address] documented as of this encounter Visit Diagnoses Not on filedocumented in this encounter Care Teams Print And Pattern Designer Relationship Specialty Start Date End Date Faye Avelar MD [address] [facility] [address] [place] [address] PCP - General Internal Medicine 09/19/23 Shagufta Bhakta MD, PhD [address] [facility] [address] [place] [address] [email or web address] Worker Interventional Cardiology 10/11/23 Waqas Diaz MD [address] [place] [address] [address] [place] [address] Gastroenterology 02/14/25 documented as of this encounter Additional Source Comments The information contained in this document represents components of the legal health record. It is not the complete legal health record.[facility]
[2025-04-03 20:41] LABS: MANUAL DIFF FLAG NO
[2025-04-03 20:43] LABS: Hematocrit 33.5 % (42.0-52.0); Hemoglobin 10.7 g/dl (14.0-18.0); Imm Gran Abs Auto 0.05 X10*3/uL (0.00-0.03); Imm Gran Pct Auto 0.8 % (0.0-0.4); Lymphocytes Absolute Auto 1.9 X10*3/uL (1.2-4.9); Mean Corpuscular HGB Conc 31.9 g/dl (31.0-36.0); Mean Corpuscular Hemoglobin 27.5 pg (27.0-33.0); Mean Corpuscular Volume 86.1 fL (80.0-98.0); NRBC Abs Auto 0.000 X10*3/uL (0.0-0.012); NRBC Pct Auto 0.0 /100WBC (0.0-0.2); Platelet Count 296 X10*3/uL (160-400); Red Blood Count 3.89 X10*6/uL (4.60-5.80); White Blood Count 6.2 X10*3/uL (4.8-10.8)
[2025-04-03 20:59] LABS: Alanine Aminotransferase 44 U/L (0-40); Albumin Level 4.4 g/dL (3.5-5.0); Alkaline Phosphatase 151 U/L (39-117); Anion Gap 16 (12-20); Aspartate Amino Transferase 37 U/L (5-37); Blood Urea Nitrogen 11 mg/dL (9-16); Calcium 9.3 mg/dL (8.4-10.2); Carbon Dioxide 23 mmol/L (22-29); Chloride 106 mmol/L (96-108); Creatinine Clr Calc Pharmacy 70.1; Estimated Glomerular Filt Rate 54; Magnesium 2.2 mg/dL (1.6-2.6); Potassium 3.8 mmol/L (3.3-5.1); Sodium 141 mmol/L (135-145); Total Protein 7.6 g/dL (6.5-8.0)
[2025-04-03 21:06] LABS: NT Pro B Type Natriuretic Pept 469.3 pg/mL (<300); Troponin-I High Sensitivity 4.4 ng/L (<3.5-35.0)
[2025-04-03 22:00] VITALS: BP 168/81; PULSE 77; RESP 12; O2SAT 100
--- NOTE | 2025-04-03 22:00 | ECG_ITS ---
Test Reason : RELIEF OF PAIN Blood Pressure : */* mmHG Vent. Rate : 75 BPM Atrial Rate : 75 BPM P-R Int : 158 ms QRS Dur : 84 ms QT Int : 452 ms P-R-T Axes : 71 15 55 degrees QTcB Int : 504 ms Normal sinus rhythm Possible Left atrial enlargement Nonspecific ST abnormality Prolonged QT Abnormal ECG When compared with ECG of 03-Apr-2025 20:19, ST no longer depressed in Anterior leads Referred By: Augustine Ty Electronically Signed By: FLORENCE JACKSON MD
[2025-04-03 22:04] LABS: Resp Syncy Virus RNA Qual PCR NEGATIVE (Negative); SARS COV2 PCR INHOUSE NEGATIVE (Negative)
[2025-04-03 22:44] LABS: Troponin-I High Sensitivity 3.1 ng/L (<3.5-35.0)
[2025-04-04] VITALS: BP 140/85; PULSE 64; RESP 18; O2SAT 98
[2025-04-04] MEDS: iohexoL 350 MG/ML 100 ML INFUS..BTL IV (00:30)
[2025-04-04 03:17] VITALS: BP 152/84; PULSE 65; RESP 20; TEMP 36.6; O2SAT 99
[2025-04-04 03:39] VITALS: BP 144/82; PULSE 60; RESP 18; TEMP 36.6; O2SAT 100
== END 2025-04-04 03:44 | disposition home or self-care (01) ==
PROVIDERS: Emergency Medicine; Emergency Provider Emergency Medicine; PCP Internal Medicine
DX: R07.9 Chest pain, unspecified (principal); R06.02 Shortness of breath; I48.91 Unspecified atrial fibrillation; I10 Essential (primary) hypertension; Z79.01 Long term (current) use of anticoagulants; Z79.899 Other long term (current) drug therapy; Z98.890 Other specified postprocedural states
CPT/HCPCS: 36415; 71045; 71275; 76604; 76705; 80053; 83735; 83880; 84484; 85025; 86140; 87637; 93005; 93308; 99285; Q9967

== ENCOUNTER → 2025-04-03 20:19 | Outpatient (BNV) | payer BC, SELFPAY | PROVIDERS: Emergency Provider Emergency Medicine; PCP Internal Medicine; Visit Provider Internal Medicine Cardiovascular Disease | DX: R00.0 Tachycardia, unspecified (principal); R94.31 Abnormal electrocardiogram [ECG] [EKG]; Z13.6 Encounter for screening for cardiovascular disorders | CPT/HCPCS: 93010 ==

== ENCOUNTER → 2025-04-03 21:15 | Outpatient (BNV) | payer BC, SELFPAY | PROVIDERS: Emergency Provider Emergency Medicine; PCP Internal Medicine; Visit Provider Radiology Diagnostic Radiology | DX: J81.0 Acute pulmonary edema (principal) | CPT/HCPCS: 71045 ==

== ENCOUNTER → 2025-04-04 00:05 | Outpatient (BNV) | payer BC, SELFPAY | PROVIDERS: Emergency Provider Emergency Medicine; PCP Internal Medicine; Visit Provider Radiology Diagnostic Radiology | DX: J90 Pleural effusion, not elsewhere classified (principal) | CPT/HCPCS: 71275 ==

== ENCOUNTER 2025-04-24 13:45 | Outpatient (AMB) | payer BC, SELFPAY ==
--- OUTSIDE RECORDS SUMMARY | 2023-12-15 08:40 | XMS_ITS ---
Author Organization [facility] Address [address] [place] [address] Care Team Providers Care Cosmetic Sales Consultant Name Role Phone Valentino HATCH, [facility] Primary [facility] Provider Waqas Cash [phone] REASON FOR VISIT rectal bleeding, wt loss,diarrhea Problems Problem Type SNOMED Code ICD Code Onset Dates Problem Status W/U Status Risk Notes Problem Diverticular disease of colon (402202738) Diverticulosis of large intestine without perforation or abscess without bleeding (K57.30) Active confirmed Encounters Encounter Location Date Provider Diagnosis [facility] Outpatient [address] [place] [id number] 12/15/2023 Waqas Diaz Colon polyps K63.5 ; Diarrhea R19.7 ; Rectal bleeding K62.5 ; Weight loss R63.4 ; Diverticulosis of large intestine without perforation or abscess without bleeding K57.30 and Other hemorrhoids K64.8 Assessments Encounter Date Diagnosis (ICD Code) Assessment Notes Treatment Notes Treatment Clinical Notes Section Notes 12/15/2023 Colon polyps (ICD-10 - K63.5) 12/15/2023 Diarrhea (ICD-10 - R19.7) 12/15/2023 Rectal bleeding (ICD-10 - K62.5) 12/15/2023 Weight loss (ICD-10 - R63.4) 12/15/2023 Diverticulosis of large intestine without perforation or abscess without bleeding (ICD-10 - K57.30) 12/15/2023 Other hemorrhoids (ICD-10 - K64.8) Plan Of Treatment Next Appt Details Provider Name:Waqas Diaz , 06/19/2025 03:40:00 PM, [address], [address], [place], [address], Progress Notes * JOSE WINSLOW JDOB: [birth year] (50 yo M)Acc No.[id number]:12/15/2023 COLON WITH MAC Patient: JOSE CHING Provider: Jimena Diaz MD :1975 A ge:48 Y S ex:Male Date:12/15/2023 Address: [id number] Pcp:Faye Avelar MD Subjective: * Chief Complaints: * R ectal bleeding, wt loss,diarrhea Assessment: * Assessment: 1. C olon polyps - K63.5 (Primary) 2 . D iarrhea - R19.7 3 . R ectal bleeding - K62.5 4 . W eight loss - R63.4 5 . D iverticulosis of large intestine without perforation or abscess without bleeding - K57.30 ? 6 . O ther hemorrhoids - K64.8 Plan: * Procedure Codes: 4 5385 LESION REMOVAL [id number] COLONOSCOPY AND BIOPSY, Modifiers: 59 Billing Information: * Procedure Codes: 80051 LESION REMOVAL COLONOSCOPY. 66919 COLONOSCOPY AND BIOPSY. Modifiers: 59 * The named appointment provid er may or may not be the originator of this progress note, and it is not deemed complete until electronically signed by the appointment provider. Sign off status: Pending * Provider: Jimena Diaz MD Date: 0 12/15/2023 Generated for Blanca lou/Ariel/eTransmitting on: 1 06/25/2024 04:25 PM EST
--- OUTSIDE RECORDS SUMMARY | 2024-01-13 08:40 | XMS_ITS ---
Author Organization [facility] Address [address] [place] [address] Care Team Providers Care Taker Out Name Role Phone Valentino HATCH, Faye Primary Care Provider Waqas Cash [phone] REASON FOR VISIT chronic diarrhea, abnormal weight loss, abnormal findings on diagnostic imaging Encounters Encounter Location Date Provider Diagnosis [facility] [place] [address] [place] [id number] 01/13/2024 Waqas Diaz Plan Of Treatment Next Appt Details Provider Name:Waqas Diaz , 06/19/2025 03:40:00 PM, [address], [address], [place], [address], Progress Notes * JOSE WINSLOWDOB: [birth year] (50 yo M)Acc No.[id number]:01/13/2024 EGD/MAC Patient: N ARELY JOSE Baez Provider: Jimena Diaz MD :1975 A ge:48 Y S ex:Male Date:01/13/2024 Address:[address] [id number] Pcp:Faye Avelar MD Subjective: * Chief Complaints: [...] 01/13/2024 Generated for Blanca lou/Ariel/Mally on: 1 06/25/2024 04:24 PM EST
--- OUTSIDE RECORDS SUMMARY | 2024-01-18 06:30 | XMS_ITS ---
Author Organization [facility] Address [address] [place] [address] Care Team Providers Care Renewable Energy Broker Name Role Phone Valentino HATCH, [facility] Primary Care Provider Waqas Cash [phone] REASON FOR VISIT chronic diarrhea, abnormal weight loss, abnormal findings on diagnostic imaging Problems Problem Type SNOMED Code ICD Code Onset Dates Problem Status W/U Status Risk Notes Problem Gastroesophageal reflux disease with esophagitis (disorder) (517914701) Gastroesophageal reflux disease with esophagitis without hemorrhage (K21.00) Active confirmed Problem Duodenitis (01310520) Duodenitis (K29.80) Active confirmed Problem Duodenal ulcer disease (20692500) Duodenal ulcer disease (K26.9) Active confirmed Problem Gastric ulcer (096510218) Gastric ulcer (K25.9) Active confirmed Encounters Encounter Location Date Provider Diagnosis [facility] Outpatient [address] [place] [id number] 01/18/2024 Waqas Diaz Gastroesophageal ref lux disease [...] 03:40:00 PM, [address], [address], [place], [address], Progress Notes * GOLDY JOSE JDOB: [birth year] (50 yo M)Acc No.[id number]:01/18/2024 EGD/MAC Patient: JOSE CHING Provider: Jimena Diaz MD :1975 A ge:48 Y S ex:Male Date:01/18/2024 Address:[address] [place] [address] Pcp:Faye Avelar MD Subjective: * Chief Complaints: * C hronic diarrhea, abnormal weight loss, abnormal findings on diagnostic imaging Assessment: * Assessment: 1. G astroesophageal reflux disease with esophagitis without hemorrhage - K21.00 (Primary) 2 . D uodenitis - K29.80 3 . D uodenal ulcer disease - K26.9? 4. G astric ulcer - K25.9 5 . H iatal hernia - K44.9 & #160; 6 . A bn findings-GI tract - R93.3 7 . W eight loss - R63.4 ? Plan: * Procedure Codes: 4 3239 UPPER GI ENDOSCOPY, BIOPSY Billing Information: * Procedure Codes: 95730 UPPER GI ENDOSCOPY, BIOPSY. * The named appointment provid er may or may not be the originator of this progress note, and it is not deemed complete until electronically signed by the appointment provider. Sign off status: Pending * Provider: Jimena Diaz MD Date: 0 01/18/2024 Generated for Jonathani ng/Fadavidg/eTransmitting on: 1 06/25/2024 04:25 PM EST
--- OUTSIDE RECORDS SUMMARY | 2024-08-23 09:30 | XMS_ITS ---
Author Organization [facility] Address [address] [place] [address] Care Team Providers Care Assembler Name Role Phone Valentino HATCH, [facility] Primary Care Provider Waqas Cash [phone] REASON FOR VISIT diarrhea,anemia, rectal bleeding ,peptic ulcer Encounters Encounter Location Date Provider Diagnosis [facility] [place] [address] [place] [id number] 08/23/2024 Waqas Diaz Rectal bleed K62.5 ; [...] Name:Waqas Diaz , 06/19/2025 03:40:00 PM, [address], [address], [place], [address], Progress Notes * JOSE WINSLOW JDOB: [birth year] (50 yo M)Acc No.[id number]:08/23/2024 EGD and COL/MAC Patient: JOSE CHING Provider: Jimena Diaz MD :1975 A ge:49 Y S ex:Male Date:08/23/2024 Address:[address] [place] [address] [id number] Pcp:Faye Avelar MD Subjective: * Chief Complaints: * D iarrhea,anemia, rectal bleeding ,peptic ulcer Assessment: * Assessment: 1. R ectal bleed - K62.5 (Primary) 2 . I radha 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 (chronic) - D50.0 3 . D iverticulosis of large intestine without perforation or abscess without bleeding - K57.30 4 . O ther hemorrhoids - K64.8 5. H iatal hernia - K44.9 6 . G ba-esophageal reflux disease without esophagitis - K21.9 Plan: * Procedure Codes: 4 5380 COLONOSCOPY AND [id number] UPPER GI ENDOSCOPY, BIOPSY Billing Information: * Procedure Codes: 35405 COLONOSCOPY AND BIOPSY. 33604 UPPER GI ENDOSCOPY, BIOPSY. * The named appointment provid er may or may not be the originator of this progress note, and it is not deemed complete until electronically signed by the appointment provider. Sign off status: Pending * Provider: Jimena Diaz MD Date: 0 08/23/2024 Generated for Blanca lou/Ariel/Josiahsmitting on: 06/25/2024 04:24 PM EST
--- NOTE | 2025-04-24 14:06 | MHC.PC.OV ---
Intake Visit Reasons: 4 week follow up Allergies No Known Allergies Allergy (Verified 04/03/25 20:27) Medication List - Last Reconciled 04/24/25 by Faye Avelar MD apixaban (Eliquis) 5 mg PO BID cholecalciferol (vitamin D3) 50 mcg PO DAILY cyanocobalamin (vitamin B-12) (Vitamin B-12) 500 mcg PO DAILY folic acid 1 mg PO DAILY lorazepam 0.5 mg PO BEDTIME PRN metoprolol succinate ER 25 mg PO BID omeprazole 20 mg PO QAM Tobacco use date assessed: 08/17/24 Dental Screening Dental Screen Date: 08/17/24 HPI HPI Comments History of Present Illness Details History of Present Illness The patient is a 50 year old individual presenting for follow-up on anemia, anxiety, and post-operative status after a recent Mitral valve repair surgery Anemia and Gastrointestinal Bleeding: - The patient has been taking iron twice a day for anemia, and the hemoglobin has improved from 10 to 10.7 since early March. - Despite the improvement, the patient continues to experience significant fatigue. - The patient reports a return of stomach cramps and suspects blood in the stool. - The patient is established with a mechanical systems design engineer, Dr. Diaz, and has an appointment in approximately two weeks. Post-operative Status and Anticoagulation: - The patient had f/u apt with surgery around April 05. - A post-operative check showed the incisions look good - The patient is on Eliquis for post-operative prophylaxis to prevent blood clots, with a treatment course of 9 to 12 weeks. - The patient is currently at 9-10 weeks post-surgery .. - An echocardiogram is planned for future evaluation. Anxiety: - The patient reports that anxiety has been better. Medical History: - Anemia - Anxiety - Gastrointestinal bleeding Diagnostic Results: - Labs: Hemoglobin was 10.7, an improvement from 10 in early March. [facility] Medical History Murmur Hx of peptic ulcer Iron deficiency anemia HTN (hypertension) Severe mitral regurgitation Surgical History History of open heart surgery History of esophagogastroduodenoscopy (EGD) H/O colonoscopy Family History Father No problems noted. Mother No problems noted. Social History Housing: House Alcohol intake: current Alcohol intake frequency: a few times a month Patient Tobacco Use Status: Current everyday Tobacco user Tobacco use type: Cigarette e-Cigarette/Vaping Use: Never Used Current occupational status: employed Cognitive needs: No Hearing needs: No Vision needs: Yes Questionnaire Thrive Questionnaire Date Thrive assessed: 08/17/24 SYBIL-7 AMB Questionnaire SYBIL-7 Date SYBIL - 7 assessed: 08/17/24 Source: Developed by Drs. Waqas Rutledge, Carol Colon, Oren Brown and colleagues, with an educational kayla from [employer]. Review of Systems Narrative Review of Systems. - General: No fever no chills - Neurological: No headaches no dizziness - Ear nose throat: No sore throat no hearing difficulty no ear pain - Cardiovascular: No syncope, no chest pain, no palpitations - Gastrointestinal: No nausea vomiting or diarrhea Physical exam (Primary Care) Tobacco/Smoking Status: Tobacco use Status Tobacco use date assessed 08/17/24 03/27/25 13:56 Patient Tobacco Use Status Current everyday Tobacco 03/27/25 13:56 Tobacco use type Cigarette 03/27/25 13:56 e-Cigarette/Vaping Use Never Used 03/27/25 13:56 Thrive Assessment: Date of Thrive Assessment Date Thrive assessed 08/17/24 03/27/25 13:56 Narrative Telehealth Telehealth Telehealth Platform: [facility] Location of provider rendering services: practice address Location of patient: address on file Patient Identification confirmed using: Name, : Yes Telehealth method: video Patient verbally consented to treatment: Yes Patient verbally consented to billing insurance company: Yes Patient informed of any privacy concerns related to visit: Yes Minutes spent on Phone/Video with Pt.: 14 Coding Level of Care Code Tele Est Pt Level 3 (85987) Diagnoses Microcytic anemia D50.9 Gastrointestinal hemorrhage, unspecified gastrointestinal hemorrhage type K92.2 GI bleed type/associated pathology: unspecified gastrointestinal hemorrhage type H/O mitral valve repair Z98.890 Anxiety about health F41.8 Fatigue, unspecified type R53.83 Fatigue type: unspecified Hx of terminal carman use of blood thinners Z79.01 Assessment & Plan Assessment & Plan (1) Microcytic anemia: Code(s): D50.9 - Iron deficiency anemia, unspecified Category: Medical (2) GI bleed: Code(s): K92.2 - Gastrointestinal hemorrhage, unspecified Category: Medical Qualifiers: GI bleed type/associated pathology: unspecified gastrointestinal hemorrhage type Qualified Code(s): K92.2 - Gastrointestinal hemorrhage, unspecified (3) H/O mitral valve repair: Code(s): Z98.890 - Other specified postprocedural states Category: Surgical (4) Anxiety about health: Code(s): F41.8 - Other specified anxiety disorders Category: Medical (5) Fatigue: Code(s): R53.83 - Other fatigue Category: Medical Qualifiers: Fatigue type: unspecified Qualified Code(s): R53.83 - Other fatigue (6) Hx of terminal carman use of blood thinners: Code(s): Z79.01 - prison (current) use of anticoagulants Category: Medical Plan Problem List - Anemia most likly due to GI bleed - Anxiety - Status post mitral valve repair - Anticoagulation therapy Plan - Orders will be placed for a CBC and ferritin level to be drawn tomorrow to re-evaluate anemia and iron stores. - The patient will monitor the lab results and is advised to increase iron intake to three times a day if the hemoglobin level is found to be decreasing. - The patient will continue anticoagulation with Eliquis,untill stopped by cardiac surgeon - The patient reports the potential discontinuation of Eliquis around the 9 to 12-week post-operative alma, which may help with the bleeding risk. - The patient will follow up with their mechanical systems design engineer, Dr. Diaz, in two weeks to address ongoing GI symptoms. - The patient will proceed with a planned echocardiogram for mitral valve follow-up. - The patient is to continue slowly increasing physical activity as tolerated. Orders: Orders Complete Blood Count Auto Diff 7 Days D50.0 - Iron 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 (chronic), D64.9 - Anemia, unspecified Ferritin 7 Days D50.0 - Iron 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 (chronic), D64.9 - Anemia, unspecified
--- OUTSIDE RECORDS SUMMARY | 2025-04-24 16:24 | XMS_ITS | Clinical Summary ---
Author Organization [facility] Address [address] [address] Phone Care Team Providers Care Bonderizer Operator Name Role Phone Faye Avelar MD Primary Care Provider [phone] Shagufta Bhakta MD, PhD Unavailable [phone] Waqas Diaz MD Unavailable [phone] Allergies No known active allergies Medications folic [...] Active ferrous sulfate 325 mg (65 mg bad river band iron) tablet Take 325 mg by mouth [...] visit around 01/11. Per patient echo at [facility] showed severe MR. Of note, he was born with murmur. He plays tennis for 2-3 hours per week and pickle ball for 1 hour per week. P: echo, dental consult Resolved Problems Problem Noted Date Diagnosed Date Resolved Date Mitral valve insufficiency, unspecified etiology 02/19/2025 04/02/2025 Encounters Date Type Department Care Team Description 04/08/2025 Documentation [facility] Division of Cardiac Surgery [address] [facility], 6th Floor, [address] [place] [address] Cornelia Palacios RN 04/04/2025 3:13 PM EST - 04/04/2025 11:59 PM EST Hospital Encounter [facility] [address] [place] [address] Biju Wolfe MBBS Discharge Disposition: Home or Self Care 04/04/2025 3:12 PM EST Hospital Encounter [facility] [address] [place] [address] Biju Wolfe MBBS Discharge Disposition: Home or Self Care 04/04/2025 Orders Only [facility] Division of Cardiac Surgery [address] [facility] [address], 6th [address], [address] [place] [address] Med Kaye MD 04/04/2025 Telephone [facility] Division of Cardiac Surgery [address] [facility] [address], 6th [address], [address] [place] [address] Julia Constantino CNP 04/04/2025 Ancillary Orders [facility] [address] [place] [address] Biju Wolfe MBBS 04/04/2025 Ancillary Orders [facility] [address] [place] [address] Biju Wolfe MBBS 04/03/2025 1:30 PM EST Office Visit [facility] [address] [facility], 5th Floor, [address] [place] [id number] Shagufta Bhakta MD, PhD S/P mitral valve repair (Primary Dx); Status post mitral valve repair; Paroxysmal atrial fibrillation 04/03/2025 11:30 AM EST Office Visit [facility] Division of Cardiac Surgery [address] [facility], 6th Floor, [address] [place] [address] Natalie Acosta MD Postop check (Primary Dx) 04/03/2025 10:25 AM EST - 04/03/2025 11:59 PM EST Hospital Encounter [facility] Imaging - Shelton Morelos 2 [address] [facility], 2nd [place] [address] Gonzalo Parsons, PAFabianC Discharge Disposition: Home or Self Care 03/22/2025 Telephone [facility] Division of Cardiac Surgery [address] [facility], 6th Floor, [address] [place] [address] Panchito Stark, AEROSPACE QUALITY ENGINEER 03/17/2025 Documentation [facility] Cardiovascular Medicine [address] [facility], 5th Floor, [address] [place] [address] Arya Betancourt MD 03/13/2025 Telephone [facility] Division of Cardiac Surgery [address] [facility], 6th Floor, [address] [place] [address] Alaina Brizuela FNP 03/13/2025 Refill [facility] [address] [facility], 5th Floor, [address] [place] [address] Nidia Devries CNP Medication Refill 02/28/2025 Telephone [facility] Division of Cardiac Surgery [address] [facility], 6th [address], [address] [place] [address] Panchito Stark CNP 02/19/2025 7:30 AM EDT - 02/19/2025 2:11 PM EDT Surgery [facility] PERIOPERATIVE DEPT [address] [place] [address] Natalie Acosta MD ROBOTIC REPAIR MITRAL VALVE ( tissue ) 02/19/2025 7:18 AM EDT Anesthesia Event [facility] PERIOPERATIVE DEPT [address] [place] [address] Colin Layne MBBS Hayes, Colleen Ann, DO 02/19/2025 6:40 AM EDT Ancillary Procedure [facility] Imaging Bedside Ultrasound VRT [address] [place] [address] Colin Layne MBBS Melnitchouk, Serguei, MD 02/19/2025 5:33 AM EDT - 02/26/2025 11:18 AM EDT Hospital Encounter [facility] [address]ala [address] [place] [address] Natalie Acosta MD Discharge Disposition: Home or Self Care 02/19/2025 Procedure Pass [facility] Cardiac US [address] [place] [address] 02/19/2025 Procedure Pass [facility] PERIOPERATIVE DEPT [address] [place] [address] 02/18/2025 Documentation [facility] Division of Cardiac Surgery [address] [facility], 6th [address], [address] [place] [address] Ariana Elaine, TIFFANY 2025 Telephone [facility] Division of Cardiac Surgery [address] [facility], 6th Floor, [address] [place] [address] Panchito Stark CNP 02/14/2025 Orders Only [facility] Division of Cardiac Surgery [address] [facility], 6th Floor, [address] [place] [address] ProviderMed MD 02/14/2025 Telephone [facility] Division of Cardiac Surgery [address] [facility], 6th Floor, [address] [place] [address] Panchito Stark CNP 02/12/2025 Telephone [facility] Division of Cardiac Surgery [address] [facility], 6th Floor, [address] [place] [address] Panchito Stark CNP 02/06/2025 Documentation [facility] Division of Cardiac Surgery [address] [place] [address], 6th Floor, [address] [place] [address] Cornelia Palacios RN 02/05/2025 2:14 PM EDT - 02/05/2025 11:59 PM EDT Hospital Encounter [facility] Imaging - Shelton Morelos 2 [address] [facility], 2nd [place] [address] Renetta Stevens, AEROSPACE QUALITY ENGINEER Discharge Disposition: Home or Self Care 02/05/2025 2:01 PM EDT - 02/05/2025 2:13 PM EDT Hospital Encounter [facility] Phleb ACC2 [address] [facility] [place] [address] Natalie Acosta MD Discharge Disposition: Home or Self Care 02/05/2025 1:00 PM EDT Pre-Admission Testing [facility] Division of Cardiac Surgery [address] [place] [address], 6th Floor, [address] [place] [address] Natalie Acosta MD Dyspnea, unspecified type (Primary Dx); Preop testing 02/05/2025 Orders Only [facility] EKG LAB VIRTUAL DEPARTMENT [address] [place] [address] Jovana Luis Preop testing from Last 3 Months Immunizations Immunization Administration [...] st Contact Info) Description 04/03/2025 Procedure Pass [facility] Holter Lab [address] [facility], 5th Floor, [address] [place] [address] 04/03/2025 Procedure Pass [facility] Cardiology [address] [facility], [address] [place] [address] 06/06/2025 8:30 AM EST Appointment [facility] Holter Lab [address] [facility], 5th Floor, [address] [place] [address] Shagufta Bhakta MD, PhD [address] [address] [email or web address] 06/21/2025 8:00 AM EST Appointment [facility] Cardiology [address] [facility], [address] [place] [address] Shagufta Bhakta MD, PhD [address] [address] [email or web address] Health Maintenance Due Date Last Done [...] VACCINE (#1) 2024 COVID-19 VACCINE (1 - season) 2025 CREATININE LEVEL 02/26/2026 02/26/2025, [...] this topic Medical Devices Implanted Type Area Slot Tag Inserter Device Identifier Shelf Expiration Date Model / Serial / Lot Ring Annuloplasty 32mm Mitral Jazmín Guerra Eligoy Band Silicone Rubber Polyester Cover - [id number] Implanted:Qty: 1 on 02/19/2025 by Natalie Acosta MD at [facility] Left: Heart [employer] 10/31/2029 [id number] / [id number] / Procedures Procedure Name Priority Date/Time Associated Diagnosis Comments OUTSIDE CT IMAGING REPORT ONLY Routine 04/04/2025 3:[address] CHEST OUTSIDE (NO INTERPRETATION) Routine 04/04/2025 3:[address] CHEST OUTSIDE (NO INTERPRETATION) Routine 04/04/2025 3:12 PM EST ECG 12-LEAD Routine 04/03/2025 12:25 PM EST S/P mitral valve repair XR CHEST PA AND LATERAL 2 VIEWS [...] EDT PUMP BLOOD GAS PLUS STAT 02/19/2025 1:03 PM EDT LACTATE (BLOOD GAS) STAT 02/19/2025 [...] PROTAMINE TITRATION Routine 02/19/2025 8:44 AM EDT DE ECHO HEART TRANSESOPH PROBE PLACEMT PERF Routine 02/19/2025 8:29 AM EDT ANES SINGLE LUMEN PA LINE - PA LINE Routine 02/19/2025 8:28 AM EDT ANES VENOUS SHEATH - PA LINE Routine 02/19/2025 8:28 AM EDT DE INSERT/PLACE FLOW DIRECT CATH PERF Routine 02/19/2025 8:28 AM EDT AIRWAY PLACEMENT Routine 02/19/2025 7:47 AM EDT POCT HEPARIN DOSE RESPONSE Routine 02/19/2025 7:45 AM EDT BASIC METABOLIC PANEL (BMP) STAT 02/19/2025 7:45 AM EDT LACTATE (BLOOD GAS) STAT 02/19/2025 7 :45 AM EDT ARTERIAL BLOOD GAS PLUS STAT 02/19/2025 7:45 AM EDT DE MITRALPLASTY W CP BYPASS 02/19/2025 7:33 AM EDT Mitral valve prolapse Special Needs CPT Code for : Minimally Invasive MV Repair 23239 Robotic DE INSERT CATH ART PERCUT SHORTTERM PERF Routine [...] testing from Last 3 Months Results * Outside CT Imaging Report Only (04/04/2025 3:51 PM EST) Historical Provider IMNataliia CT Final Res ult * CT Chest Outside (No Interpretation) (04/04/2025 3:13 PM EST) Narrative [facility] IMG INTERFACES - 04/04/2025 3:13 PM EST This study is for PACS storage only and not for interpretation. Biju METZ IMG OUTSIDE IMAGING W/OUT INTERPRETATION Final Result [facility] IMG INTERFACES * CT Chest Outside (No Interpretation) (04/04/2025 3:12 PM EST) Narrative [facility] IMG INTERFACES - 04/04/2025 3:12 PM EST This study is for PACS storage only and not for interpretation. us Biju METZ IMG OUTSIDE IMAGING W/OUT INTERPRETATION Final Result Performing Organization Address [facility] Co de Phone Number [facility] IMG INTERFACES * ECG 12-LEAD (04/03/2025 12:25 PM EST) Only the most recent of10 resultswithin the time period is included. Systolic Blood Pressure 132 mmHg [facility] Diastolic Blood Pressure 74 mmHg [facility] Ventricular Rate EKG/MIN 73 BPM [facility] Atrial Rate 73 BPM [facility] DE Interval 156 ms [facility] QRS Duration 82 ms [facility] QT Interval 442 ms [facility] QTC Interval 486 ms [facility] P [place] 73 degrees [facility] R Wave [place] 30 degrees [facility] T Wave [place] 54 degrees [facility] 04/03/2025 12:2 5 PM EST 04/08/2025 4:53 PM EST Narrative [facility] - 04/08/2025 4:53 PM EST NORMAL SINUS RHYTHM SINUS ARRHYTHMIA POSSIBLE LEFT ATRIAL ENLARGEMENT NONSPECIFIC ST ABNORMALITY QTcB >= 480 msec ABNORMAL ECG WHEN COMPARED WITH ECG OF 26-Feb-2025 01:38, CRITERIA FOR SEPTAL INFARCT ARE NO LONGER PRESENT T WAVE INVERSION NO LONGER EVIDENT IN INFERIOR LEADS NONSPECIFIC T WAVE ABNORMALITY, IMPROVED IN ANTERIOR-LATERAL LEADS Electronically Signed in [facility] system. Confirmed by Pipe Bhakta, MD Shagufta, P ([id number]) on 04/08/2025 4:53:11 PM us Shagufta Bhakta MD, PhD ECG ORDERABLES Final Resu lt [facility] * XR CHEST PA AND LATERAL 2 [...] clinician's provided indication for this examination [facility]: S/P Cardiac Surgery COMPARISON: XR CHEST PA [...] clinician's provided indication for this examination in [facility]:S/P Cardiac Surgery COMPARISON: XR CHEST PA AND [...] included. WBC 5.75 4.00 - 11.00 K/uL [facility] RBC 3.39(L) 4.50 - 5.90 M/uL [facility] HGB 9.2(L) 13.5 - 17.5 g/dL [facility] HCT 28.8(L) 41.0 - 53.0 % [facility] PLT 236 150 - 450 K/uL [facility] MCV 85.0 80.0 - 100.0 fL [facility] MCH 27.1 27.0 - 31.0 pg [facility] MCHC 31.9(L) 32.0 - 36.0 g/dL [facility] RDW 20.9(H) 11.5 - 14.5 % [facility] MPV 9.3 8.4 - 12.0 fL [facility] NRBC 0.00 0.00 /100 WBCs [facility] ABSOLUTE NRBC 0.00 0.00 K/uL [facility] Blood 02/26/2025 6:04 AM EDT 02/26/2025 6:57 AM EDT us Marlyn Garrido AEROSPACE QUALITY ENGINEER, DNP LAB BLOOD BKR ORDERABLES Fi nal Result Performing Organization Address City/[facility]/ZIP Co de Phone Number [address] [address] * Type and Screen (ABO,Rh,Antibody Screen) (02/26/2025 6:04 AM EDT) Only the most recent of3 resultswithin the time period is included. Expiration Date of Sample 03/01/2025 11:59 PM [facility] Antibody Screen Negative 02/26/2025 7:27 AM EDT [facility] Resulting Agency [facility] ABO O 02/26/2025 7:11 AM EDT [facility] Rh Positive 02/26/2025 7:11 AM EDT [facility] Blood 02/26/2025 6:04 AM EDT 02/26/2025 6:23 AM EDT us Pita Barney PA-C LAB BLOOD BANK TEST ORDER OZZY Final Result [address] [address] * Magnesium (02/26/2025 6:04 AM EDT) Only the most recent of15 resultswithin the time period is included. MAGNESIUM 2.1 1.7 - 2.4 mg/dL [facility] Blood 02/26/2025 6:04 AM EDT 02/26/2025 6:57 AM EDT Marlyn Garrido CNP, DNP LAB BLOOD BKR ORDERABLES Fi nal Result Performing Organization Address [facility] Co de Phone Number [address] [address] * (ABNORMAL) Basic metabolic panel (02/26/2025 6:04 AM EDT) Only the most recent of17 resultswithin the time period is included. SODIUM 131(L) 135 - 145 mmol/L [facility] POTASSIUM 4.5 3.4 - 5.0 mmol/L [facility] CHLORIDE 94(L) 98 - 108 mmol/L [facility] CO2 30 23 - 32 mmol/L [facility] BUN 16 8 - 25 mg/dL [facility] CREATININE 1.25 0.60 - 1.30 mg/dL [facility] GLUCOSE 105 70 - 110 mg/dL [facility] CALCIUM 9.1 8.5 - 10.5 mg/dL [facility] EGFR 70 >59 mL/min/1. 73m2 [facility] Comment:Estimated glomerular filtration rate calculated using the CKD-EPI refit equation. ANION GAP 7 3 - 17 mmol/L [facility] Blood 02/26/2025 6:04 AM EDT 02/26/2025 6:57 AM EDT Marlyn Garrido CNP, ELIA LAB BLOOD BKR ORDERABLES Fi nal Result Performing Organization Address [facility] Co de Phone Number [address] [address] * XR CHEST PA AND LATERAL 2 [...] clinician's provided indication for this examination [facility]: Post-Op; s/p robotic mitral valve repair COMPARISON: [...] clinician's provided indication for this examination in [facility]:Post-Op; s/p robotic mitral valve repair COMPARISON: XR [...] the cardiac silhouette. Low lung volume examination. us Pita Barney PA-C IMG XR CHEST Final [...] clinician's provided indication for this examination in [facility]: S/P Cardiac Surgery COMPARISON: XR CHEST PORTABLE [...] clinician's provided indication for this examination in [facility]:S/P Cardiac Surgery COMPARISON: XR CHEST PORTABLE FINDINGS: [...] IMG XR CHEST Final R esult * XR [...] clinician's provided indication for this examination in [facility]: Chest Tube Removal COMPARISON: XR CHEST PORTABLE [...] clinician's provided indication for this examination in [facility]:Chest Tube Removal COMPARISON: XR CHEST PORTABLE 05:15:30.000 [...] originallycreated by Adeline Fernández. us Lavinia You MATERIALS SUPERVISOR IMG XR CHEST Final Resu lt * Lactate (02/22/2025 7:37 AM EDT) LACTIC ACID (MMOL/L) 0.8 0.5 - 2.0 mmol/L [facility] Blood 02/22/2025 7:37 AM EDT 02/22/2025 7:45 AM EDT us Graciela Peoples PA-C LAB BLOOD BKR ORDERABLES Final Result [address] [address] * XR Chest Portable (02/22/2025 5:17 AM [...] clinician's provided indication for this examination in [facility]: Post-Op COMPARISON: XR CHEST PORTABLE ; CT [...] clinician's provided indication for this examination in [facility]:Post-Op COMPARISON: XR CHEST PORTABLE ; CT CARDIAC [...] originallycreated by Whitley Jaramillo. us Adolfo Whyte NP IMG XR CHEST Final Result * (ABNORMAL) LFTs (hepatic panel) (02/22/2025 1:43 AM EDT) Only the most recent of4 resultswithin the time period is included. ALBUMIN 3.2(L) 3.3 - 5.0 g/dL [facility] TOTAL BILIRUBIN 0.3 0.0 - 1.0 mg/dL [facility] DIRECT BILIRUBIN 0.1 0.0 - 0.3 mg/dL [facility] ALKALINE PHOSPHATASE 72 45 - 115 U/L [facility] AST 34 10 - 40 U/L [facility] ALT 32 10 - 55 U/L [facility] TOTAL PROTEIN 6.2 6.0 - 8.3 g/dL [facility] GLOBULIN 3.0 1.9 - 4.1 g/dL [facility] Blood 02/22/2025 1:43 AM EDT 02/22/2025 1:56 AM EDT Graciela Peoples PA-C LAB BLOOD BKR ORDERABLES Final Result Performing Organization Address City/[facility] Co de Phone Number [address] [address] * PTT (02/22/2025 1:43 AM EDT) Only the most recent of6 resultswithin the time period is included. APTT 29.2 24.0 - 37.5 sec [facility] Comment:Check MAR for the ta rget range that is ordered for your patient. Blood 02/22/2025 1:43 AM EDT 02/22/2025 1:56 AM EDT Graciela Peoples PA-C LAB BLOOD BKR ORDERABLES Final Result Performing Organization Address City/[facility]/ZIP Co de Phone Number [address] [address] * PT-INR (02/22/2025 1:43 AM EDT) Only the most recent of6 resultswithin the time period is included. PT 11.3 10.0 - 13.0 sec [facility] INR 1.0 0.9 - 1.1 [facility] Blood 02/22/2025 1:43 AM EDT 02/22/2025 1:56 AM EDT us Graciela Minor Shelton PA-C LAB BLOOD BKR ORDERABLES Final Result Performing Organization Address [facility] Co de Phone Number [address] [address] * (ABNORMAL) Phosphorus (02/22/2025 1:43 AM EDT) Only the most recent of8 resultswithin the time period is included. PHOSPHORUS 2.3(L) 2.6 - 4.5 mg/dL [facility] Blood 02/22/2025 1:4 3 AM EDT 02/22/2025 1:56 AM EDT us Graciela Minor Shelton PA-C LAB BLOOD BKR ORDERABLES Final Result Performing Organization Address [facility] de Phone Number [address] [address] * Creat. Comment (02/21/2025 9:42 AM EDT) Only the most recent of5 resultswithin the time period is included. Creat Comment Increasing Creatinine Value on your Patient: The calculated GFR may thus overestimate the true GFR and should not be used to guide medication dosing. Negative [facility] 02/21/2025 9:42 AM EDT 02/21/2025 9:47 AM EDT us Graciela Minor Shelton PA-C LAB BLOOD ORDERABLES Jeanine l Result Performing Organization Address [facility] Co de Phone Number [address] [address] * Prepare RBC (02/21/2025 12:41 AM EDT) Only the most recent of2 resultswithin the time period is included. Product Code [id number] 02/21/2025 12:41 AM EDT [facility] Unit Number [id number] 02/22/20 12:41 AM EDT [facility] Crossmatch Interpretation Compatible 02/18/2025 12:03 PM EDT [facility] Product Status Issued, Final 025 12:41 AM EDT [facility] ABO/Rh of Unit OPOS 02/21/2025 12:41 AM EDT [facility] Expiration Date/Time [id number] 02/21/2025 12:41 AM EDT [facility] Unit Barcode 5100 02/21/2025 12:41 AM EDT [facility] Product Code [id number] 02/21/2025 12:41 AM EDT [facility] Unit Number [id number] 02/22/20 12:41 AM EDT [facility] Crossmatch Interpretation Compatible 02/18/2025 12:03 PM EDT [facility] Product Status Issued, Final 025 12:41 AM EDT [facility] ABO/Rh of Unit OPOS 02/21/2025 12:41 AM EDT [facility] Expiration Date/Time [id number] 02/21/2025 12:41 AM EDT [facility] Unit Barcode 5100 02/21/2025 12:41 AM EDT [facility] 02/05/2025 3:3 3 PM EDT Blood Bank BLOOD BANK PRODUCT ORDERABLES Fi nal Result Performing Organization Address City/State/[facility] Co de Phone Number [address] [address] * XR Chest Portable (02/20/2025 10:18 PM [...] provided indication for this examination in Epic: Post-Op COMPARISON: XR CHEST PORTABLE 02:46:11.000 FINDINGS: [...] examination in Epic:Post-Op COMPARISON: XR CHEST PORTABLE 02:46:11.000 FINDINGS: Devices/Tubes/Lines: [...] robotic mitral valve repair. us Adolfo Whyte NP IMG XR CHEST Final Result * (ABNORMAL) Arterial blood gas PLUS (02/20/2025 8:30 PM EDT) Only the most recent of10 resultswithin the time period is included. FIO2 2L NC FIO2/L min [facility] PH 7.37 7.35 - 7.45 [facility] PCO2 41 35 - 42 mm[Hg] [facility] PO2 118(H) 80 - 100 mm[Hg] [facility] Base Excess, unspecified NEG 0.0 - 3.0 mmol/L [facility] Comment:1.8NEG HCO3, unspecified 23(L) 24 - 30 mmol/L [facility] SODIUM 131(L) 135 - 145 mmol/L [facility] POTASSIUM 4.3 3.5 - 5.0 mmol/L [facility] IONIZED CALCIUM 1.11(L) 1.14 - 1.30 mmol/L [facility] Glucose, whole bld 139(H) 70 - 110 mg/dL [facility] HGB (BG) 9.7(L) 13.5 - 17.5 g/dl [facility] O2 Sat (SO2, arterial) 98.7 94.0 - 99.0 % [facility] Blood 02/20/2025 8:30 PM EDT 02/20/2025 8:38 PM EDT us Gracielazia Peoples PA-C LAB BLOOD ORDERABLES Jeanine l Result Performing Organization Address [facility] Co de Phone Number [address] [address] * Lactate (blood gas) (02/20/2025 8:30 PM EDT) Only the most recent of19 resultswithin the time period is included. Lactate, blood 1.6 0.5 - 2.0 mmol/L [facility] Blood 02/20/2025 8:30 PM EDT 02/20/2025 8:38 PM EDT Graciela LANDERS-C LAB BLOOD BKR ORDERABLES Final Result Performing Organization Address [facility] Co de Phone Number [address] [address] * AMY COMP PROBE PLACED BY ANES [...] well. There were no probe complications noted. Rating Clerk Attestation: I have reviewed the images and [...] of patent foramen ovale (PFO) by Doppler. us Natalie Acosta MD CV ECHO ORDERABLES Final Result * (ABNORMAL) Oxygen saturation, mixed venous (02/20/2025 3:59 AM EDT) Only the most recent of4 resultswithin the time period is included. SO2-MIXED (SO2, mixed bld) 58.6(L) 65.0 - 75.0 % [facility] Blood 02/20/2025 3:59 AM EDT 02/20/2025 4:09 AM EDT us Graciela Peoples PA-C LAB BLOOD BKR ORDERABLES Final Result Performing Organization Address City/[facility]/ZIP Co de Phone Number [address] [address] * (ABNORMAL) POCT Glucose (02/20/2025 3:17 AM EDT) Only the most recent of2 resultswithin the time period is included. Glucose, POCT 163(H) 70 - 110 mg/dL [facility] 02/20/2025 3:17 AM EDT 02/20/2025 3:19 AM EDT us Natalie Acosta MD POINT OF CARE TEST ORDERA BLES Final Result Performing Organization Address [facility] Co de Phone Number [address] [address] * XR Chest Portable (02/20/2025 2:47 AM [...] report originallycreated by Luis Ireland. us Graciela Peoples PA-C IMG XR CHEST Final Res ult * (ABNORMAL) Lipase (02/20/2025 1:33 AM EDT) Only the most recent of2 resultswithin the time period is included. LIPASE 83(H) 13 - 60 U/L [facility] Blood 02/20/2025 1:33 AM EDT 02/20/2025 1:39 AM EDT us Graciela Peoples PA-C LAB BLOOD BKR ORDERABLES Final Result [facility] [address] [place] [address] * XR Chest Portable (02/19/2025 2:55 PM [...] clinician's provided indication for this [facility]: Central Line; s/p cardiac surgery COMPARISON: XR [...] clinician's provided indication for this examination in [facility]:Central Line; s/p cardiac surgery COMPARISON: XR CHEST [...] thickening,extrapleural thickening, and/or small right pleural effusion. Graciela LANDERS-C IMG XR CHEST Final Res ult * MRSA Nasal Screen (02/19/2025 2:40 PM EDT) Special Requests No Special Requests 02/19/2025 2:38 PM EDT [facility] MRSA Nasal Culture NEGATIVE FOR MRSA 02/20/2025 1:35 PM EDT [facility] Other (Nasal) 02/19/2025 2:4 0 PM EDT 02/19/2025 5:08 PM EDT Graciela LANDERS-C LAB MICROBIOLOGY CULTURE ORDERABLES Final Result [address] [address] * Vancomycin Resistant Enterococci (VRE), Rectal Screen (02/19/2025 2:40 PM EDT) Special Requests No Special Requests 02/19/2025 2:38 PM EDT [facility] VRE Rectal Culture NEGATIVE FOR VRE 02/20/2025 3:16 PM EDT [facility] Stool (Rectal) 02/19/2025 2: 40 PM EDT 02/19/2025 5:07 PM EDT Graciela ALNDERS-C LAB MICROBIOLOGY CULTURE ORDERABLES Final Result [address] [address] * (ABNORMAL) Fibrinogen (02/19/2025 1:51 PM EDT) Pathologist [facility] FIBRINOGEN 166(L) 200 - 400 mg/dL [facility] Blood 02/19/2025 1:51 PM EDT 02/19/2025 1:57 PM EDT us Colin METZ LAB BLOOD BKR ORDERABLES Final Result Performing Organization Address City/[facility]/ZIP Co de Phone Number [address] [address] * POCT ACT from cardiac OR (02/19/2025 1:48 PM EDT) Only the most recent of11 resultswithin the time period is included. ACT FROM CARDIAC OR 106 90 - 130 sec [facility] 02/19/2025 1:48 PM EDT 02/19/2025 1:47 PM EDT us Natalie Acosta MD LAB POCT ENTER/EDIT ORDER OZZY Final Result Performing Organization Address [facility] Co de Phone Number [address] [address] * POCT Heparin Protamine Titration (02/19/2025 1:48 PM EDT) Only the most recent of11 resultswithin the time period is included. Heparin Protamine Titration 0.0 u/ml [facility] Misc Test Ref Range 0.0-1.2 u/ml [facility] Comment (Coag) Red [facility] 02/19/2025 1:48 PM EDT 02/19/2025 1:47 PM EDT us Natalie Acosta MD POINT OF CARE TEST ORDERA BLES Final Result Performing Organization Address [facility]/ZIP Co de Phone Number [address] [address] * (ABNORMAL) PUMP BLOOD GAS PLUS (02/19/2025 1:03 PM EDT) Only the most recent of9 resultswithin the time period is included. FIO2/FLOW CPB FIO2/L min [facility] TEMP. 37.0 deg C [facility] PH(UNCORRECTED) 7.30 [facility] PH 7.30(L) 7.32 - 7.45 [facility] PCO2(UNCORRECTE D) 46 mm[Hg] [facility] PCO2 46 35 - 50 mm[Hg] [facility] PO2(UNCORRECTED ) 260 mm[Hg] [facility] PO2 260(H) 40 - 90 mm[Hg] [facility] Base Excess, unspecified NEG 0.0 - 3.0 mmol/L [facility] Comment:4.2NEG HCO3, unspecified 22(L) 24 - 30 mmol/L [facility] SODIUM 134(L) 135 - 145 mmol/L [facility] POTASSIUM 4.8 3.5 - 5.0 mmol/L [facility] HGB (BG) 7.8(L) 13.5 - 17.5 g/dl [facility] IONIZED CALCIUM 1.26 1.14 - 1.30 mmol/L [facility] Glucose, whole bld 161(H) 70 - 110 mg/dL [facility] SO2, unspecified 99.8 94.0 - 99.9 % [facility] Comment: SO2 Reference Range: Arterial: 94.0-99.9 Venous: 60.0-85.0 Blood 02/19/2025 1:03 PM EDT 02/19/2025 1:08 PM EDT us Colin METZ LAB BLOOD [place] [address] * RBCs (02/19/2025 12:52 PM EDT) Only the most recent of2 resultswithin the time period is included. us Colin METZ NURSING TREATMENT ORDERABLES - ASSIGN Final Result * Anatomic Pathology (Non-MGB) (02/19/2025 10:09 AM EDT) Report [address] [address] Surgical Pathology Report Patient Name: JOSE WINSLOW : 1975 (Age: 50) Sex: M [facility]: [facility] B08 Institution: [facility] Date of Operation: 02/19/2025 [...] thickness. No calcifications or vegetations are identified. Methods Engineer sections are wrapped and are submitted in A1. Grossed by: Angela Spangler [facility] Clinical History Mitral valve prolapse [facility] Final Diagnosis A. P2 CHORD AND LEAFLET: Myxomatous degeneration. [facility] Gross Description Received fresh labeled Jose Winslow , and P2 chord and leaflet is a 2.8 x 1.7 x 0.5 cm aggregate of white rubbery tissue fragments admixed with fragments of chordae tendonae, ranging from 0.1-0.2 cm in thickness. No calcifications or vegetations are identified. Methods Engineer sections are wrapped and are submitted in A1. [facility] Conversion Type (Heart Valve, [place] Mitral) 02/19/2025 10:09 AM EDT 02/19/2025 2:15 PM EDT us Natalie Acosta MD LAB PATHOLOGY ORDERABLES Edited Result - Final [facility] [address] [place] [address] * (ABNORMAL) VENOUS BLOOD GAS PLUS (02/19/2025 8:55 AM EDT) FIO2 CPB FIO2/L min [facility] PH 7.34 7.30 - 7.40 [facility] PCO2 50 38 - 50 mm[Hg] [facility] PO2 51(H) 35 - 50 mm[Hg] [facility] Base Excess, unspecified 0.1 0.0 - 3.0 mmol/L [facility] HCO3, unspecified 26 24 - 30 mmol/L [facility] SODIUM 136 135 - 145 mmol/L [facility] POTASSIUM 4.1 3.5 - 5.0 mmol/L [facility] IONIZED CALCIUM 0.88(L) 1.14 - 1.30 mmol/L [facility] Glucose, whole bld 137(H) 70 - 110 mg/dL [facility] HGB (BG) 7.3(L) 13.5 - 17.5 g/dl [facility] SO2-VENOUS (SO2, venous) 78.8 60.0 - 85.0 % [facility] Blood 02/19/2025 8:55 AM EDT 02/19/2025 9:01 AM EDT Colin METZ LAB BLOOD ORDERABLES Final Res ult [address] [address] * DE ECHO HEART TRANSESOPH PROBE PLACEMT PERF (02/19/2025 8:29 AM EDT) Narrative Maria De Jesus Aparicio DO - 02/19/2025 8:29 AM EDT Maria De Jesus Aparicio DO 02/19/2025 8:30 AM Transesophageal Echocardiogram Procedure Note: Performed by: anesthesiologist Anesthesiologist: Colin Layne MBBS [place] Protocol performed: consent obtained, patient identified with 2 identifiers, correct procedure verified, correct site and laterality confirmed, verified equipment, coagulation status reviewed and implant history reviewed. Placement notes: probe advanced in esophagus atraumatic Colin METZ DE ANESTHESIA Final Result * DE INSERT/PLACE FLOW DIRECT CATH PERF, ANES VENOUS SHEATH - PA LINE, ANES SINGLE LUMEN PA LINE - PALINE (02/19/2025 8:28 AM EDT) Narrative Maria De Jesus Aparicio DO - 02/19/2025 8:28 AM EDT Maria De Jesus Aparicio DO 02/19/2025 8:29 AM Pulmonary Artery Line Placement Procedure Note: Start time: 02/19/2025 8:03 AM Anesthesiologist: Colin Layne MBBS Fellow/Resident/PINION AND WHEEL TRUER: Maria De Jesus Aparicio DO Performed: fellow/resident/PINION AND WHEEL TRUER [place] Protocol performed: consent obtained, patient identified with [...] seconds? yes personal protection worn? yes assistant plant manager followed standard precautions? yes sterile technique used [...] free fluid flow Complications?: No Colin METZ DE ANESTHESIA Final Result * ANES ETT DOUBLE LUMEN - AIRWAY LDA (02/19/2025 7:47 AM EDT) Narrative Maria De Jesus Aparicio DO - 02/19/2025 7:47 AM EDT Maria De Jesus Aparicio DO 02/19/2025 8:24 AM Airway Placement Procedure Note: Patient was not difficult to intubate. Procedure performed by: fellow/resident/PINION AND WHEEL TRUER Anesthesiologist: Colin Layne MBBS Fellow/Resident/PINION AND WHEEL TRUER: Maria De Jesus Aparicio DO Airway procedure [...] injury? no Complications observed? no Colin METZ DE ANESTHESIA Final Result * POCT heparin dose response (02/19/2025 7:45 AM EDT) ACT FROM CARDIAC OR 127 90 - 130 sec [facility] Projected heparin concentration 3.0 u/ml [facility] Heparin dose response 109 50 - 120 sec [facility] 02/19/2025 7:45 AM EDT 02/19/2025 7:51 AM EDT Natalie Acosta MD POINT OF CARE TEST ORDERA BLES Final Result [address] [address] * DE INSERT CATH ART PERCUT SHORTTERM PERF (02/19/2025 7:26 AM EDT) Narrative Maria De Jesus Aparicio DO - 02/19/2025 7:26 AM EDT MariaD e Jesus Aparicio DO 02/19/2025 7:26 AM Arterial Line Placement Procedure Note: Location: pre-op Procedure performed by: fellow/resident/PINION AND WHEEL TRUER Anesthesiologist: Colin Layne MBBS Fellow/Resident/PINION AND WHEEL TRUER: Maria De Jesus Aparicio DO Indication(s): hemodynamic monitoring, arterial blood gas and frequent labs [place] Protocol performed: consent obtained, patient identified with [...] immediate complications Transducer type: regular Colin METZ DE ANESTHESIA Final Result * ANESTHESIA POINT OF CARE IMAGE CAPTURE (02/19/2025 6:36 AM EDT) Anatomical Region Laterality Modality Ultrasound Narrative 02/19/2025 6:36 AM EDT Maria De Jesus Aparicio DO 02/19/2025 6:36 AM Anesthesia Point of Care Image Capture Performed by: Maria De Jesus Aparicio DO Authorized by: Colin Layne MBBS Accession Number: [id number] Colin METZ IMG POINT OF CARE EXAMS [...] clinician's provided indication for this examination in [facility]: Dyspnea on exertion; preoperative evaluation COMPARISON: CT [...] clinician's provided indication for this examination in [facility]:Dyspnea on exertion; preoperative evaluation COMPARISON: CT CARDIAC [...] PRE-OP PCR (02/05/2025 2:11 PM EDT) Pathologist [facility] MRSA PCR SCREEN NEGATIVE FOR MRSA (Methicillin Resistant S.aureus) NEGATIVE FOR MRSA (Methicillin Resistant S.aureus) [facility] MSSA PCR SCREEN POSITIVE FOR MSSA (Methicillin Susceptible S.aureus)(A) NEGATIVE FOR MSSA (Methicillin Susceptible S.aureus) [facility] Comment:This test was conduc jacque as part of Pre-Operative Screening for Staphylococcus aureus. Please direct any questions regarding this result to the Ordering Provider. Nasal (Nasal) 02/05/2025 2:1 1 PM EDT 02/05/2025 5:14 PM EDT Renetta Stevens CNP LAB GENERAL ORDERABLES Fi nal Result [address] [address] * (ABNORMAL) Comprehensive metabolic panel (02/05/2025 2:11 PM EDT) SODIUM 140 135 - 145 mmol/L [facility] POTASSIUM 4.2 3.4 - 5.0 mmol/L [facility] CHLORIDE 102 98 - 108 mmol/L [facility] CO2 26 23 - 32 mmol/L [facility] BUN 12 8 - 25 mg/dL [facility] CREATININE 1.31(H) 0.60 - 1.30 mg/dL [facility] GLUCOSE 97 70 - 110 mg/dL [facility] ALBUMIN 4.2 3.3 - 5.0 g/dL [facility] TOTAL PROTEIN 7.3 6.0 - 8.3 g/dL [facility] CALCIUM 9.1 8.5 - 10.5 mg/dL [facility] ALKALINE PHOSPHATASE 129(H) 45 - 115 U/L [facility] TOTAL BILIRUBIN 0.3 0.0 - 1.0 mg/dL [facility] AST 27 10 - 40 U/L [facility] ALT 21 10 - 55 U/L [facility] GLOBULIN 3.1 1.9 - 4.1 g/dL [facility] EGFR 66 >59 mL/min/1. 73m2 [facility] Comment:Estimated glomerular filtration rate calculated using the CKD-EPI refit equation. ANION GAP 12 3 - 17 mmol/L [facility] 02/05/2025 2:11 PM EDT 02/05/2025 7:10 PM EDT Renetta Stevens AEROSPACE QUALITY ENGINEER LAB BLOOD BKR ORDERABLES Final Result Performing Organization Address City/[facility]/ZIP Co de Phone Number [address] [address] * ABO and Rh (02/05/2025 2:11 PM EDT) Expiration Date of Sample 02/22/2025 11:59 PM [facility] ABO O 02/21/2025 12:00 PM EDT [facility] Rh Positive 02/21/2025 12:00 PM EDT [facility] Comment:Patient Transfused, specimen exp. date updated Resulting Agency [facility] 02/05/2025 2:11 PM EDT 02/05/2025 3:33 PM EDT Blood Bank LAB BLOOD BANK TEST ORDERABLES F inal Result [address] [address] * (ABNORMAL) CBC and differential (02/05/2025 2:11 PM EDT) WBC 5.50 4.00 - 11.00 K/uL [facility] RBC 3.80(L) 4.50 - 5.90 M/uL [facility] HGB 9.4(L) 13.5 - 17.5 g/dL [facility] HCT 32.2(L) 41.0 - 53.0 % [facility] PLT 259 150 - 450 K/uL [facility] MCV 84.7 80.0 - 100.0 fL [facility] MCH 24.7(L) 27.0 - 31.0 pg [facility] MCHC 29.2(L) 32.0 - 36.0 g/dL [facility] RDW 21.8(H) 11.5 - 14.5 % [facility] MPV 10.3 8.4 - 12.0 fL [facility] NRBC 0.00 0.00 /100 WBCs [facility] ABSOLUTE NRBC 0.00 0.00 K/uL [facility] DIFF METHOD Auto [facility] NEUTS 55.0 48.0 - 76.0 % [facility] LYMPHS 28.7 18.0 - 41.0 % [facility] MONOS 10.5 4.0 - 11.0 % [facility] EOS 3.1 0.0 - 5.0 % [facility] BASOS 1.8(H) 0.0 - 1.5 % [facility] % IMMATURE GRANS 0.9 0.0 - 0.9 % [facility] ABSOLUTE NEUTS 3.02 1.92 - 7.60 K/uL [facility] ABSOLUTE LYMPHS 1.58 0.72 - 4.10 K/uL [facility] ABSOLUTE MONOS 0.58 0.16 - 1.10 K/uL [facility] ABSOLUTE EOS 0.17 0.00 - 0.50 K/uL [facility] ABSOLUTE BASOS 0.10 0.00 - 0.15 K/uL [facility] ABS IMMATURE GRANS 0.05 0.00 - 0.09 K/uL [facility] Blood 02/05/2025 2:11 PM EDT 02/05/2025 7:13 PM EDT us Renetta Stevens AEROSPACE QUALITY ENGINEER LAB BLOOD BKR ORDERABLES Final Result [facility] [address] [place] [address] * Hemoglobin A1c (02/05/2025 2:11 PM EDT) HEMOGLOBIN A1C 5.0 4.3 - 5.6 % [facility] Comment:HbA1c levels 5.7-6.4 % represent pre-diabetes, indicating impaired glucose control and an increased risk of developing diabetes compared with lower HbA1c levels. The diagnostic HbA1c level for diabetes is 6.5% or greater. CALC MEAN BLD GLUC 97 mg/dL [facility] Comment:There is no establis [facility] normal range for the Calculated Mean Blood Glucose (CMBG), however a HbA1c of 5.6% (upper limit of normal) represents a CMBG of 114 mg/dL. The diagnostic hemoglobin A1c level for diabetes is greater than or equal to 6.5% which represents a CMBG greater than or equal to 140 mg/dL. 02/05/2025 2:11 PM EDT 02/05/2025 6:53 PM EDT us Renetta Stevens AEROSPACE QUALITY ENGINEER LAB BLOOD BKR ORDERABLES Final Result Performing Organization Address City/State/[facility] Co de Phone Number [facility] [address] [place] [address] from [place] [address] [place] [address] [facility] [place] [address] [employer] [place] [place] [address] [facility] OUT OF [facility] PPO [facility] OUT OF STATE PPO Advance Directives For more information, please contact: [phone] (9AM - 5PM [facility], Tuesday-Tuesday) Documents on File Type Date Recorded Patient Methods Engineer Expl anation Healthcare Proxy 02/06/2025 9:14 AM * Full Code (Latest Code Status on File) Date Activated Date Inactivated Comments 02/19/2025 2:37 PM Question Answer Comments Code Status Confirmed With: Patient Code Discussion Comments: Ofelia-op team discussed Care Teams Bonderizer Operator Relationship Specialty Start Date End Date Faye Avelar MD [facility] [place] [address] PCP - General Internal Medicine 09/19/23 Shagufta Bhakta MD, PhD [address] [place] [address] [address] [place] [address] [email or web address] Rating Clerk Interventional Cardiology 10/11/23 Waqas Diaz MD [address] [place] [address] [address] [place] [address] Gastroenterology 02/14/25 Additional Source Comments The information contained in this document represents components of the legal health record. It is not the complete legal health record.[facility]
--- OUTSIDE RECORDS SUMMARY | 2025-04-24 16:24 | XMS_ITS | Encounter Summary ---
Author Organization [facility] Address [address] [place] [address] Phone Care Team Providers Care Senior Mobile Developer Name Role Phone Faye Avelar MD Primary Care Provider [phone] Shagufta Bhakta MD, PhD Unavailable [phone] Waqas Diaz MD Unavailable [phone] Encounter Details Date Type Department Care Team (Late st Contact Info) Description 02/19/2025 Procedure Pass [facility] [place] [address] [place] [phone] Social History Tobacco Use Types Packs/Day Years [...] 6:00 PM EDT John Mohamud, TIFFANY * [place] Suicide Severity Rating Scale (Screener/Recent Self-Report) Question [...] st Contact Info) Description 04/03/2025 Procedure Pass [facility] [place] [address] [place] [address], 5th Floor, [address] [place] [address] 04/03/2025 Procedure Pass [facility] Cardiology [address], [address] [place] [address] 06/06/2025 8:30 AM EST Appointment [facility] [place] [facility] [address] [place] [address], 5th Floor, [address] [place] [address] Shagufta Bhakta MD, PhD [address] [place] [address] [email or web address] 06/21/2025 8:00 AM EST Appointment [facility] Cardiology [address] [facility] [facility], [address] [place] [address] Shagufta Bhakta MD, PhD [address] [facility] [place] [address] [email or web address] documented as of this encounter Visit Diagnoses Not on filedocumented in this encounter Care Teams Senior Mobile Developer Relationship Specialty Start Date End Date Faye Avelar MD [address] [place] [address] PCP - General Internal Medicine 09/19/23 Shagufta Bhakta MD, PhD [address] [facility] [address] [place] [address] [email or web address] Ammunition And Explosives Handler Interventional Cardiology 10/11/23 Waqas Diaz MD [address] [place] [address] [address] [place] [address] Gastroenterology 02/14/25 documented as of this encounter Additional Source Comments The information contained in this document represents components of the legal health record. It is not the complete legal health record.[facility]
--- OUTSIDE RECORDS SUMMARY | 2025-04-24 16:25 | XMS_ITS | Encounter Summary ---
Author Organization [facility] Address [address] [place] [address] Phone Care Team Providers Care Oil Scout Name Role Phone Faye Avelar MD Primary Care Provider Shagufta Bhakta MD, PhD Unavailable [phone] Waqas Diaz MD Unavailable [phone] Reason for Referral * MRI/CAT Scan - Authorized Specialty Diagnoses / Procedures Referred By Contac t Referred To Contact Radiology Procedures Outside CT Imaging Report Only [facility] Division of Cardiac Surgery [address], 6th Floor, [address] [place] [address] Phone: tel: fax: Referral ID Status Reason Start Date Expiration Date V isits Requested Visits Authorized [id number] Authorized 04/04/2025 1 1 Encounter Details Date Type Department Care Team (Late st Contact Info) Description 04/04/2025 Orders Only [facility] Division of Cardiac Surgery [address], 6th Floor, [address] [place] [address] Med Kaye MD [address] [place] [address] Social History Tobacco Use Types Packs/Day [...] st Contact Info) Description 04/03/2025 Procedure Pass [facility] Lab [address] [place] [address], 5th Floor, [address] [place] [address] 04/03/2025 Procedure Pass [facility] Cardiology [address] [facility] [address], [address] [place] [address] 06/06/2025 8:30 AM EST Appointment [facility] [address] [place] [address], 5th Floor, [address] [place] [address] Shagufta Bhakta MD, PhD [address] [facility] [address] [place] [address] [email or web address] 06/21/2025 8:00 AM EST Appointment [facility] Cardiology [address] [facility], [address] [place] [address] Shagufta Bhakta MD, PhD [address] [facility] [address] [place] [address] [email or web address] documented as of this encounter Procedures Procedure Name Priority Date/Time Associated Diagnosis Comments OUTSIDE CT IMAGING REPORT ONLY Routine 04/04/2025 3:51 PM EST documented in this encounter Results * Outside CT Imaging Report Only (04/04/2025 3:51 PM EST) us Historical Provider MD JURADO CT Final Res ult documented in this encounter Visit Diagnoses Not on filedocumented in this encounter Care Teams Oil Scout Relationship Specialty Start Date End Date Faye Avelar MD [address] [place] [address] PCP - General Internal Medicine 09/19/23 Shagufta Bhakta MD, PhD [address] [place] [address] [address] [place] [address] [email or web address] Potato Chip Frier Interventional Cardiology 10/11/23 Waqas Diaz MD [address] [place] [address] [address] [place] [address] Gastroenterology 02/14/25 documented as of this encounter Additional Source Comments The information contained in this document represents components of the legal health record. It is not the complete legal health record.[facility]
--- OUTSIDE RECORDS SUMMARY | 2025-04-24 16:25 | XMS_ITS | Encounter Summary ---
Author Organization [facility] Address [address] [facility] [address] [place] [address] Phone Care Team Providers Care Mattress Renovator Name Role Phone Faye Avelar MD Primary Care Provider Shagufta Bhakta MD, PhD Unavailable [phone] Waaqs Diaz MD Unavailable [phone] Encounter Details Date Type Department Care Team ([facility] st Contact Info) Description 11/29/2024 Telephone VIRTUAL DEPARTMENT [address] [place] [phone] Natalie Acosta MD [address] [place] [address] [email or web address] Social History Tobacco Use Types [...] st Contact Info) Description 04/03/2025 Procedure Pass [facility] Holter Lab [address] [facility], 5th Floor, [address] [place] [address] 04/03/[address] [facility] Cardiology 52 [facility], [address] [place] [address] 06/06/2025 8:30 AM EST [facility]ment [facility] 32 [facility], 5th Floor, [address] [place] [address] Shagufta Bhakta MD, PhD [address] [address] DIANA@[email or web address]. balta 06/21/2025 8:[address] [facility] Cardiology [address] [facility], [address] [place] [address] Shagufta Bhakta MD, PhD [address] [address] DIANA@[email or web address] du documented as of this encounter Visit Diagnoses Not on filedocumented in this encounter Care Teams Mattress Renovator Relationship Specialty Start Date End Date Faye Avelar MD [address] [facility] [place] [address] PCP - General Internal Medicine 09/19/23 Shagufta Bhakta MD, PhD [address] [address] DIANA@[email or web address] Academic Program Specialist Interventional Cardiology 10/11/23 Waqas Diaz MD [address] [place] [address] [address] [place] [address] Gastroenterology 02/14/25 documented as of this encounter Additional Source Comments The information contained in this document represents components of the legal health record. It is not the complete legal health record.[facility]
--- OUTSIDE RECORDS SUMMARY | 2025-04-24 16:25 | XMS_ITS | Encounter Summary ---
Author Organization [facility] Address [address] [facility] [address] [place] [address] Phone Care Team Providers Care Plasterer Tender Name Role Phone Fyae Avelar MD Primary Care Provider [phone] Shagufta Bhakta MD, PhD Unavailable [phone] Waqas Diaz MD Unavailable [phone] Encounter Details Date Type Department Care Team (Late st Contact Info) Description 02/19/2025 Procedure Pass [facility] Cardiac US [address] [place] [address] Social History Tobacco Use Types Packs/Day Years [...] 6:00 PM EDT John Mohamud, TIFFANY * [place] Suicide Severity Rating Scale (Screener/Recent Self-Report) Question [...] st Contact Info) Description 04/03/2025 Procedure Pass [facility] Holter Lab [address] [place] [address], 5th Floor, [address] [place] [address] 04/03/2025 Procedure Pass [facility] Cardiology 52 [facility], [address] [place] [address] 06/06/2025 8:30 AM EST Appointment [facility] Holter Lab 32 [facility], 5th Floor, [address] [place] [address] Shagufta Bhakta MD, PhD [address] [facility] [address] [place] [address] DIANA@[email or web address] [place] [email or web address]. balta 06/21/2025 8:00 AM EST Appointment [facility] Cardiology 52 [facility], [address] [place] [address] Shagufta Bhakta MD, PhD 55 [facility] 800 [place] [address] DIANA@[facility] [place] [email or web address]. balta documented as of this encounter Visit Diagnoses Not on filedocumented in this encounter Care Teams Plasterer Tender Relationship Specialty Start Date End Date aFye Avelar MD [address] [facility] [place] [address] PCP - General Internal Medicine 09/19/23 Shagufta Bhakta MD, PhD 55 [facility] 800 [place] [address] DIANA@[facility] [place] [place].[facility] Nude Model Interventional Cardiology 10/11/23 Waqas Diaz MD [address] [place] [address] [address] [place] [address] Gastroenterology 02/14/25 documented as of this encounter Additional Source Comments The information contained in this document represents components of the legal health record. It is not the complete legal health record.[facility]
--- OUTSIDE RECORDS SUMMARY | 2025-04-24 16:25 | XMS_ITS | Encounter Summary ---
Author Organization [facility] Address [address] [facility] [address] [place] [address] Phone Care Team Providers Care Auditing Coder Name Role Phone Faye Avelar MD Primary Care Provider [phone] Shagufta Bhakta MD, PhD Unavailable [phone] Waqas Diaz MD Unavailable [phone] Encounter Details Date Type Department Care Team ([facility] st Contact Info) Description 03/27/2024 Telephone VIRTUAL DEPARTMENT [address] [place] [phone] Natalie Acosta MD [address] [place] [address] [email or web address] [place] Social History Tobacco Use Types Packs/Day [...] [facility] 32 [facility], 5th Floor, [address] [place] [address] 04/03/2025 Procedure Pass [facility] Cardiology 52 [facility], [address] [place] [address] 06/06/2025 8:30 AM EST [facility]ment [facility] 32 [facility], 5th Floor, [address] [place] [address] Shagufta Bhakta MD, PhD [address] [address] DIANA@[email or web address]. balta 06/21/2025 8:00 AM EST Appointment [facility] Cardiology 52 [address] [facility], [address] [place] [address] Shagufta Bhakta MD, PhD [address] [address] DIANA@[email or web address]. du documented as of this encounter Visit Diagnoses Not on filedocumented in this encounter Care Teams Auditing Coder Relationship Specialty Start Date End Date Faye Avelar MD [address] [place] [address] PCP - General Internal Medicine 09/19/23 Shagufta Bhakta MD, PhD [address] [address] DIANA@[facility].[facility] Plug Maker Interventional Cardiology 10/11/23 Waqas Diaz MD [address] [place] [address] [address] [place] [address] Gastroenterology 02/14/25 documented as of this encounter Additional Source Comments The information contained in this document represents components of the legal health record. It is not the complete legal health record.[facility]
--- OUTSIDE RECORDS SUMMARY | 2025-04-24 16:25 | XMS_ITS | Encounter Summary ---
Author Organization [facility] Address [address] [facility] [address] [place] [address] Phone Care Team Providers Care Resolution Rep Name Role Phone Faye Avelar MD Primary Care Provider Shagufta Bhakta MD, PhD Unavailable [phone] Waqas Diaz MD Unavailable [phone] Encounter Details Date Type Department Care Team (Late st Contact Info) Description 09/22/2023 Procedure Pass [facility] Cardiac US [address] [place] [address] Social History Tobacco Use Types Packs/Day Years [...] [facility] Lab [address] [facility], 5th Floor, [address] [place] [address] 04/03/2025 Procedure Pass [facility] Cardiology [address] [facility], [address] [place] [address] 06/06/2025 8:30 AM EST Appointment [facility] Holter Lab [address] [facility], 5th Floor, [address] [place] [address] Shagufta Bhakta MD, PhD 55 [facility] 800 [place] [address] DIANA@[email or web address]. balta 06/21/2025 8:00 AM EST Appointment [facility] Cardiology [address] [facility], [address] [place] [address] Shagufta Bhakta MD, PhD 55 [facility] 800 [place] [address] DIANA@[email or web address]. balta documented as of this encounter Visit Diagnoses Not on filedocumented in this encounter Care Teams Resolution Rep Relationship Specialty Start Date End Date Faye Avelar MD [address] [facility] [place] [address] PCP - General Internal Medicine 09/19/23 Shagufta Bhakta MD, PhD 55 [facility] 800 [place] [address] DIANA@[facility].[facility] Mate Chief Interventional Cardiology 10/11/23 Waqas Diaz MD [address] [place] [address] Drive [address] [place] [address] Gastroenterology 02/14/25 documented as of this encounter Additional Source Comments The information contained in this document represents components of the legal health record. It is not the complete legal health record.[facility]
--- OUTSIDE RECORDS SUMMARY | 2025-04-24 16:25 | XMS_ITS | Encounter Summary ---
Author Organization [facility] Address [address] [facility] [address] [place] [address] Phone Care Team Providers Care Health Informatics Advisor Name Role Phone Faye Avelar MD Primary Care Provider Shagufta Bhakta MD, PhD Unavailable [phone] Waqas Diaz MD Unavailable [phone] Encounter Details Date Type Department Care Team (Late st Contact Info) Description 06/26/2024 Procedure Pass [facility] PERIOPERATIVE DEPT 55 [place] [phone] Social History Tobacco Use Types Packs/Day Years [...] st Contact Info) Description 04/03/2025 Procedure Pass [facility] Holter Lab 32 [facility], 5th Floor, [address] [place] [address] 04/03/2025 Procedure Pass [facility] Cardiology [address] [facility], [address] [place] [address] 06/06/2025 8:30 AM EST Appointment [facility] Holter Lab [address] [facility], 5th Floor, [address] [place] [address] Shagufta Bhakta MD, PhD 55 [facility] 800 [place] [address] DIANA@[email or web address]. [email or web address] 06/21/2025 8:00 AM EST Appointment [facility] [address] [facility], [address] [place] [address] Shagufta Bhakta MD, PhD 55 [facility] 800 [place] [address] DIANA@[email or web address]. balta documented as of this encounter Visit Diagnoses Not on filedocumented in this encounter Care Teams Health Informatics Advisor Relationship Specialty Start Date End Date Faye Avelar MD [address] [facility] [place] [address] PCP - General Internal Medicine 09/19/23 Shagufta Bhakta MD, PhD 55 [facility] 800 [place] [address] DIANA@[facility].[place].[facility] Turnaround Planner Interventional Cardiology 10/11/23 Waqas Diaz MD [address] [place] [address] Drive [address] [place] [address] Gastroenterology 02/14/25 documented as of this encounter Additional Source Comments The information contained in this document represents components of the legal health record. It is not the complete legal health record.[facility]
--- OUTSIDE RECORDS SUMMARY | 2025-04-24 16:25 | XMS_ITS | Encounter Summary ---
Author Organization [facility] Address [address] [facility] [address] [place] [address] Phone Care Team Providers Care Doughnut Machine Operator Helper Name Role Phone Faye Avelar MD Primary Care Provider Shagufta Bhakta MD, PhD Unavailable [phone] Waqas Diaz MD Unavailable [phone] Encounter Details Date Type Department Care Team (Late st Contact Info) Description 10/02/2024 Procedure Pass [facility] PERIOPERATIVE DEPT [address] [place] [phone] Social History Tobacco Use Types Packs/Day Years [...] st Contact Info) Description 04/03/2025 Procedure Pass [facility] Holter Lab 32 [facility], 5th Floor, [address] [place] [address] 04/03/2025 Procedure Pass [facility] Cardiology [address] [facility], [address] [place] [address] 06/06/2025 8:30 AM EST Appointment [facility] Holter Lab 32 [address] [facility], 5th Floor, [address] [place] [address] Shagufta Bhakta MD, PhD 55 [facility] 800 [place] [address] DIANA@[email or web address]. [email or web address] 06/21/2025 8:00 AM EST Appointment [facility] [address] [facility], [address] [place] [address] Shagufta Bhakta MD, PhD 55 [facility] 800 [place] [address] DIANA@[email or web address]. balta documented as of this encounter Visit Diagnoses Not on filedocumented in this encounter Care Teams Doughnut Machine Operator Helper Relationship Specialty Start Date End Date Faye Avelar MD [address] [place] [address] PCP - General Internal Medicine 09/19/23 Shagufta Bhakta MD, PhD 55 [facility] 800 [place] [address] DIANA@[facility].[facility] Public Health Internship Interventional Cardiology 10/11/23 Waqas Diaz MD [address] [place] [address] Drive [address] [place] [address] Gastroenterology 02/14/25 documented as of this encounter Additional Source Comments The information contained in this document represents components of the legal health record. It is not the complete legal health record.[facility]
--- OUTSIDE RECORDS SUMMARY | 2025-04-24 16:25 | XMS_ITS | Encounter Summary ---
Author Organization [facility] Address [address] [facility] [address] [place] [address] Phone Care Team Providers Care Grain Receiver Name Role Phone Faye Avelar MD Primary Care Provider [phone] Shagufta Bhakta MD, PhD Unavailable [phone] Waqas Diaz MD Unavailable [phone] Encounter Details Date Type Department Care Team ([facility] st Contact Info) Description 04/24/2024 Telephone VIRTUAL DEPARTMENT [address] [place] [phone] Natalie Acosta MD [address] [place] [address] [email or web address] Social History Tobacco [...] st Contact Info) Description 04/03/2025 Procedure Pass [facility] Lab 32 [facility], 5th Floor, [address] [place] [address] 04/03/2025 Procedure Pass [facility] Cardiology 52 [facility], [address] [place] [address] 06/06/2025 8:30 AM EST [facility] 32 [facility], 5th Floor, [address] [place] [address] Shagufta Bhakta MD, PhD [address] [address] DIANA@[email or web address]. balta 06/21/2025 8:00 AM EST Appointment [facility] Cardiology [address] [facility], [address] [place] [address] Shagufta Bhakta MD, PhD [address] [address] DIANA@[email or web address] du documented as of this encounter Visit Diagnoses Not on filedocumented in this encounter Care Teams Grain Receiver Relationship Specialty Start Date End Date Faye Avelar MD [address] [facility] [place] [address] PCP - General Internal Medicine 09/19/23 Shagufta Bhakta MD, PhD [address] [address] DIANA@[facility] [place] [place].[facility] Java J2Ee Architect Interventional Cardiology 10/11/23 Waqas Diaz MD [address] [place] [address] [address] [place] [address] Gastroenterology 02/14/25 documented as of this encounter Additional Source Comments The information contained in this document represents components of the legal health record. It is not the complete legal health record.[facility]
--- OUTSIDE RECORDS SUMMARY | 2025-04-24 16:25 | XMS_ITS | Encounter Summary ---
Author Organization [facility] Address [address] [facility] [address] [place] [address] Phone Care Team Providers Care Investment Banking Manager Name Role Phone Faye Avelar MD Primary Care Provider Shagufta Bhakta MD, PhD Unavailable [phone] Waqas Diaz MD Unavailable [phone] Encounter Details Date Type Department Care Team (Late st Contact Info) Description 09/11/2024 Procedure Pass [facility] Cardiac US [address] [place] [address] Social History Tobacco Use Types Packs/Day Years [...] st Contact Info) Description 04/03/2025 Procedure Pass [facility] Holter Lab [address] [facility], 5th Floor, [address] [place] [address] 04/03/2025 Procedure Pass [facility] Acra Cardiology [address] [facility], [address] [place] [address] 06/06/2025 8:30 AM EST Appointment [facility] Holter Lab [address] [facility], 5th Floor, [address] [place] [address] Shagufta Bhakta MD, PhD 55 [facility] [address] [place] [address] DIANA@[email or web address]. [email or web address] 06/21/2025 8:00 AM EST Appointment [facility] Cardiology [address] [facility], [address] [place] [address] Shagufta Bhakta MD, PhD 55 [facility] [address] [place] [address] DIANA@[email or web address]. balta documented as of this encounter Visit Diagnoses Not on filedocumented in this encounter Care Teams Investment Banking Manager Relationship Specialty Start Date End Date Faye Avelar MD [address] [facility] [place] [address] PCP - General Internal Medicine 09/19/23 Shagufta Bhakta MD, PhD 55 [facility] [address] [place] [address] DIANA@[facility] [place] Encoding Clerk Interventional Cardiology 10/11/23 Waqas Diaz MD [address] [place] [address] Drive [address] [place] [address] Gastroenterology 02/14/25 documented as of this encounter Additional Source Comments The information contained in this document represents components of the legal health record. It is not the complete legal health record.[facility]
--- OUTSIDE RECORDS SUMMARY | 2025-04-24 16:25 | XMS_ITS | Encounter Summary ---
Author Organization [facility] Address [address] [facility] [address] [place] [address] Phone Care Team Providers Care Extrusion Press Supervisor Name Role Phone Faye Avelar MD Primary Care Provider Shagufta Bhakta MD, PhD Unavailable [phone] Waqas Diaz MD Unavailable Encounter Details Date Type Department Care Team (Late st Contact Info) Description 10/13/2023 Procedure Pass [facility], [place] [address] [facility], 2nd Floor, [address] [place] [address] Social History Tobacco Use Types Packs/Day Years [...] st Contact Info) Description 04/03/2025 Procedure Pass [facility] Holter Lab 32 [facility], 5th Floor, [address] [place] [address] 04/03/2025 Procedure Pass [facility] Cardiology [address] [facility], [address] [place] [address] 06/06/2025 8:30 AM EST Appointment [facility] Holter Lab 32 [facility], 5th Floor, [address] [place] [address] Shagufta Bhakta MD, PhD 55 [facility] 800 [place] [address] DIANA@[email or web address]. [email or web address] 06/21/2025 8:00 AM EST Appointment [facility] Cardiology [address] [facility], [address] [place] [address] Shagufta Bhakta MD, PhD [address] [address] DIANA@[email or web address]. balta documented as of this encounter Visit Diagnoses Not on filedocumented in this encounter Care Teams Extrusion Press Supervisor Relationship Specialty Start Date End Date Faye Avelar MD [address] [facility] [place] [address] PCP - General Internal Medicine 09/19/23 Shagufta Bhakta MD, PhD [address] [address] DIANA@[facility] [place] [place].[facility] Hammer Repairer Interventional Cardiology 10/11/23 Waqas Diaz MD [address] [place] [address] Gastroenterology 02/14/25 documented as of this encounter Additional Source Comments The information contained in this document represents components of the legal health record. It is not the complete legal health record.[facility]
== END 2025-04-24 14:22 | disposition home or self-care (01) ==
LOC: HO.HMCC 13:45
PROVIDERS: PCP Internal Medicine; Visit Provider Internal Medicine
DX: D50.9 Iron deficiency anemia, unspecified (principal); K92.2 Gastrointestinal hemorrhage, unspecified; Z98.890 Other specified postprocedural states; F41.8 Other specified anxiety disorders; R53.83 Other fatigue; Z79.01 Long term (current) use of anticoagulants

== ENCOUNTER 2025-04-29 13:48 | Outpatient (REF) | payer BC, SELFPAY ==
[2025-04-29 16:17] LABS: MANUAL DIFF FLAG NO
[2025-04-29 16:25] LABS: Hematocrit 30.5 % (42.0-52.0); Hemoglobin 9.6 g/dl (14.0-18.0); Imm Gran Abs Auto 0.03 X10*3/uL (0.00-0.03); Imm Gran Pct Auto 0.6 % (0.0-0.4); Lymphocytes Absolute Auto 1.3 X10*3/uL (1.2-4.9); Mean Corpuscular HGB Conc 31.5 g/dl (31.0-36.0); Mean Corpuscular Hemoglobin 27.5 pg (27.0-33.0); Mean Corpuscular Volume 87.4 fL (80.0-98.0); NRBC Abs Auto 0.000 X10*3/uL (0.0-0.012); NRBC Pct Auto 0.0 /100WBC (0.0-0.2); Platelet Count 259 X10*3/uL (160-400); Red Blood Count 3.49 X10*6/uL (4.60-5.80); White Blood Count 5.2 X10*3/uL (4.8-10.8)
[2025-04-29 16:46] LABS: Alanine Aminotransferase 27 U/L (0-40); Albumin Level 4.1 g/dL (3.5-5.0); Alkaline Phosphatase 125 U/L (39-117); Anion Gap 13 (12-20); Aspartate Amino Transferase 28 U/L (5-37); Blood Urea Nitrogen 12 mg/dL (9-16); Calcium 8.8 mg/dL (8.4-10.2); Carbon Dioxide 27 mmol/L (22-29); Chloride 105 mmol/L (96-108); Estimated Glomerular Filt Rate > 60; Potassium 4.0 mmol/L (3.3-5.1); Sodium 141 mmol/L (135-145); Total Protein 7.0 g/dL (6.5-8.0)
[2025-04-29 17:00] LABS: Ferritin 13 ng/mL (20-250)
--- OUTSIDE RECORDS SUMMARY | 2025-04-29 22:33 | XMS_ITS | Encounter Summary ---
Author Organization [facility] Address [address] [facility] [address] [place] [address] Phone Care Team Providers Care Subway Train Driver Name Role Phone Faye Avelar MD Primary Care Provider [phone] Shagufta Bhakta MD, PhD Unavailable [phone] Waqas Diaz MD Unavailable [phone] Encounter Details Date Type Department Care Team (Late st Contact Info) Description 02/19/2025 Procedure Pass [facility] [address] [place] [phone] Social History Tobacco Use Types Packs/Day Years [...] 6:00 PM EDT John Mohamud, TIFFANY * [place] Suicide Severity Rating Scale (Screener/Recent Self-Report) Question [...] st Contact Info) Description 04/03/2025 Procedure Pass [facility] Holter Lab [address] [place] [address], 5th Floor, [address] [place] [address] 04/03/2025 Procedure Pass [facility] Cardiology 52 [facility], [address] [place] [address] 06/06/2025 8:30 AM EST Appointment [facility] Holter Lab [address] [place] [address], 5th Floor, [address] [place] [address] Shagufta Bhakta MD, PhD 55 [facility] [address] [place] [address] DIANA@[facility].mylo.e balta 06/21/2025 8:00 AM EST Appointment [facility] Cardiology 52 [facility], [address] [place] [address] Shagufta Bhakta MD, PhD 55 [facility] [address] [place] [address] DIANA@[facility].[place]yl[place]. balta documented as of this encounter Visit Diagnoses Not on filedocumented in this encounter Care Teams Subway Train Driver Relationship Specialty Start Date End Date Faye Avelar MD [address] [facility] [address] PCP - General Internal Medicine 09/19/23 Shagufta Bhakta MD, PhD 55 [facility] 800 [place] [address] DIANA@[facility] [place] [place].[facility] Railroad Crossing Protection Maintainer Interventional Cardiology 10/11/23 Waqas Diaz MD [address] [place] [address] [address] [place] [address] Gastroenterology 02/14/25 documented as of this encounter Additional Source Comments The information contained in this document represents components of the legal health record. It is not the complete legal health record.[facility]
--- OUTSIDE RECORDS SUMMARY | 2025-04-29 22:34 | XMS_ITS | Encounter Summary ---
Author Organization [facility] Address [address] [place] [address] Phone Care Team Providers Care Equipment Planner Name Role Phone Faye Avelar MD Primary Care Provider [phone] Shagufta Bhakta MD, PhD Unavailable [phone] Waqas Diaz MD Unavailable Reason for Referral * MRI/CAT Scan - Authorized Specialty Diagnoses / Procedures Referred By Contac t Referred To Contact Radiology Procedures Outside CT Imaging Report Only [facility] Division of Cardiac Surgery [address], [address], [address] [place] [address] Phone: tel: fax: Referral ID Status Reason Start Date Expiration Date V isits Requested Visits Authorized [id number] Authorized 04/04/2025 1 1 Encounter Details Date Type Department Care Team (Late st Contact Info) Description 04/04/2025 Orders Only [facility] Division of Cardiac Surgery [address], [address] [place] [address] Med Kaye MD [address] [place] [id number] Social History Tobacco Use Types Packs/Day [...] st Contact Info) Description 04/03/2025 Procedure Pass [facility] Holter Lab [address] [place] [address], 5[address], [address] [place] [address] 04/03/2025 Procedure Pass [facility] [address], [address] [place] [address] 06/06/2025 8:30 AM EST Appointment [facility] Holter Lab [address] [place] [address], 5[address] Floor, [address] [place] [address] Shagufta Bhakta MD, PhD [address] [place] [address] [email or web address] 06/21/2025 8:00 AM EST Appointment [facility] [address], [address] [place] [address] Shagufta Bhakta MD, PhD [address] [facility] [address] [place] [address] [email or web address] documented as of this encounter Procedures Procedure Name Priority Date/Time Associated Diagnosis Comments OUTSIDE CT IMAGING REPORT ONLY Routine 04/04/2025 3:51 PM EST documented in this encounter Results * Outside CT Imaging Report Only (04/04/2025 3:51 PM EST) us Historical Provider MD JURADO CT Final Res ult documented in this encounter Visit Diagnoses Not on filedocumented in this encounter Care Teams Equipment Planner Relationship Specialty Start Date End Date Faye Avelar MD [address] [place] [address] PCP - General Internal Medicine 09/19/23 Shagufta Bhakta MD, PhD [address] [place] [address] [address] [place] [address] [email or web address] Interventional Cardiology 10/11/23 Waqas Diaz MD [address] [place] [address] [address] [place] [address] Gastroenterology 02/14/25 documented as of this encounter Additional Source Comments The information contained in this document represents components of the legal health record. It is not the complete legal health record.[facility]
--- OUTSIDE RECORDS SUMMARY | 2025-04-29 22:34 | XMS_ITS | Clinical Summary ---
Author Organization [facility] Address [address] [address] Phone Care Team Providers Care Modular Home Crew Member Name Role Phone Faye Avelar MD Primary Care Provider [phone] Shagufta Bhakta MD, PhD Unavailable [phone] Waqas Diaz MD Unavailable [phone] Allergies No known active allergies Medications folic [...] Active ferrous sulfate 325 mg (65 mg hopland iron) tablet Take 325 mg by mouth [...] visit around 01/11. Per patient echo at [facility] showed severe MR. Of note, he was born with murmur. He plays tennis for 2-3 hours per week and pickle ball for 1 hour per week. P: echo, dental consult Resolved Problems Problem Noted Date Diagnosed Date Resolved Date Mitral valve insufficiency, unspecified etiology 02/19/2025 04/02/2025 Encounters Date Type Department Care Team Description 04/08/2025 Documentation [facility] Division of Cardiac Surgery [address] [facility], 6th Floor, [address] [place] [address] Cornelia Palacios RN 04/04/2025 3:13 PM EST - 04/04/2025 11:59 PM EST Hospital Encounter [facility] [address] [place] [address] Biju Wolfe MBBS Discharge Disposition: Home or Self Care 04/04/2025 3:12 PM EST Hospital Encounter [facility] [address] [place] [address] Biju Wolfe MBBS Discharge Disposition: Home or Self Care 04/04/2025 Orders Only [facility] Division of Cardiac Surgery [address] [facility], 6[address], [address] [place] [address] Med Kaye MD 04/04/2025 Telephone [facility] Division of Cardiac Surgery [address] [facility], 6th [address], [address] [place] [address] Julia Constantino CNP 04/04/2025 Ancillary Orders [facility] [address] [place] [address] Biju Wolfe MBBS 04/04/2025 Ancillary Orders [facility] [address] [place] [address] Biju Wolfe MBBS 04/03/2025 1:30 PM EST Office Visit [facility] [address] [facility], 5th Floor, [address] [place] [id number] Shagufta Bhakta MD, PhD S/P mitral valve repair (Primary Dx); Status post mitral valve repair; Paroxysmal atrial fibrillation 04/03/2025 11:30 AM EST Office Visit [facility] Division of Cardiac Surgery [address], 6[address], [address] [place] [address] Natalie Acosta MD Postop check (Primary Dx) 04/03/2025 10:25 AM EST - 04/03/2025 11:59 PM EST Hospital Encounter [facility] Imaging - Shelton Morelos 2 [address] [facility], 2nd [place] [address] Gonzalo Parsons, PAFabianC Discharge Disposition: Home or Self Care 03/22/2025 Telephone [facility] Division of Cardiac Surgery [address] [facility], 6[address], [address] [place] [address] Panchito Stark, IT TRAINER 03/17/2025 Documentation [facility] Cardiovascular Medicine [address] [facility], 5th Floor, [address] [place] [address] Arya Betancourt MD 03/13/2025 Telephone [facility] Division of Cardiac Surgery [address] [facility], 6[address], [address] [place] [address] Alaina Brizuela FNP 03/13/2025 Refill [facility] [address] [facility], 5th Floor, [address] [place] [address] Nidia Devries CNP Medication Refill 02/28/2025 Telephone [facility] Division of Cardiac Surgery [address] [facility], 6th [address], [address] [place] [address] Panchito Stark CNP 02/19/2025 7:30 AM EDT - 02/19/2025 2:11 PM EDT Surgery [facility] PERIOPERATIVE DEPT [address] [place] [address] Natalie Acosta MD ROBOTIC REPAIR MITRAL VALVE ( tissue ) 02/19/2025 7:18 AM EDT Anesthesia Event [facility] PERIOPERATIVE DEPT [address] [place] [address] Colin Layne MBBS Hayes, Colleen Ann, DO 02/19/2025 6:40 AM EDT Ancillary Procedure [facility] Imaging Bedside Ultrasound VRT [address] [place] [address] Colin Layne MBBS Melnitchouk, Serguei, MD 02/19/2025 5:33 AM EDT - 02/26/2025 11:18 AM EDT Hospital Encounter [facility] [address] [place] [address] Natalie Acosta MD Discharge Disposition: Home or Self Care 02/19/2025 Procedure Pass [facility] Cardiac US [address] [place] [address] 02/19/2025 Procedure Pass [facility] PERIOPERATIVE DEPT [address] [place] [address] 02/18/2025 Documentation [facility] Division of Cardiac Surgery [address] [facility], 6th [address], [address] [place] [address] Ariana Elaine, TIFFANY 2025 Telephone [facility] Division of Cardiac Surgery [address] [facility], 6th [address], [address] [place] [address] Panchito Stark CNP 02/14/2025 Orders Only [facility] Division of Cardiac Surgery [address] [facility], 6th Floor, [address] [place] [address] ProviderMed MD 02/14/2025 Telephone [facility] Division of Cardiac Surgery [address] [facility], 6th Floor, [address] [place] [address] Panchito Stark CNP 02/12/2025 Telephone [facility] Division of Cardiac Surgery [address] [facility], 6th Floor, [address] [place] [address] Panchito Stark CNP 02/06/2025 Documentation [facility] Division of Cardiac Surgery [address] [place] [address], 6th Floor, [address] [place] [address] Cornelia Palacios RN 02/05/2025 2:14 PM EDT - 02/05/2025 11:59 PM EDT Hospital Encounter [facility] Imaging - Shelton Morelos 2 [address] [facility], 2nd [place] [address] Renteta Stevens, IT TRAINER Discharge Disposition: Home or Self Care 02/05/2025 2:01 PM EDT - 02/05/2025 2:13 PM EDT Hospital Encounter [facility] Phleb ACC2 [address] [facility] [place] [address] Natalie Acosta MD Discharge Disposition: Home or Self Care 02/05/2025 1:00 PM EDT Pre-Admission Testing [facility] Division of Cardiac Surgery [address] [place] [address], 6th Floor, [address] [place] [address] Natalie Acosta MD Dyspnea, unspecified type (Primary Dx); Preop testing 02/05/2025 Orders Only [facility] EKG LAB VIRTUAL DEPARTMENT [address] [place] [address] Jovana Luis Preop testing from Last 3 [...] [place] [facility] [address] [facility], 5th Floor, [address] [place] [address] 04/03/2025 Procedure Pass [facility] Cardiology [address] [facility], [address] [place] [address] 06/06/2025 8:30 AM EST Appointment [facility] Holter Lab [address] [facility], 5th Floor, [address] [place] [address] Shagufta Bhakta MD, PhD [address] [address] [email or web address] 06/21/2025 8:00 AM EST Appointment [facility] Cardiology [address] [facility], [address] [place] [address] Shagufta Bhakta MD, PhD [address] [address] [email or web address] Health Maintenance Due Date Last Done [...] this topic Medical Devices Implanted Type Area Rail Gang Supervisor Device Identifier Shelf Expiration Date Model / Serial / Lot Ring Annuloplasty 32mm Mitral Jazmín Guerra Eligoy Band Silicone Rubber Polyester Cover - [id number] Implanted:Qty: 1 on 02/19/2025 by Natalie Acosta MD at [facility] Left: Heart [employer] 10/31/2029 [id number] / [id number] / Procedures Procedure Name Priority Date/Time Associated [...] PROTAMINE TITRATION Routine 02/19/2025 8:44 AM EDT HI ECHO HEART TRANSESOPH PROBE PLACEMT PERF Routine 02/19/2025 8:29 AM EDT ANES SINGLE LUMEN PA LINE - PA LINE Routine 02/19/2025 8:28 AM EDT ANES VENOUS SHEATH - PA LINE Routine 02/19/2025 8:28 AM EDT HI INSERT/PLACE FLOW DIRECT CATH PERF Routine 02/19/2025 8:28 AM EDT AIRWAY PLACEMENT Routine 02/19/2025 7:47 AM EDT POCT HEPARIN DOSE RESPONSE Routine 02/19/2025 7:45 AM EDT BASIC METABOLIC PANEL (BMP) STAT 02/19/2025 7:45 AM EDT LACTATE (BLOOD GAS) STAT 02/19/2025 7 :45 AM EDT ARTERIAL BLOOD GAS PLUS STAT 02/19/2025 7:45 AM EDT HI MITRALPLASTY W CP BYPASS 02/19/2025 7:33 AM EDT Mitral valve prolapse Special Needs CPT Code for : Minimally Invasive MV Repair 83809 Robotic HI INSERT CATH ART PERCUT SHORTTERM PERF Routine [...] (No Interpretation) (04/04/2025 3:13 PM EST) Narrative [facility] IMG INTERFACES - 04/04/2025 3:13 PM EST This study is for PACS storage only and not for interpretation. Biju METZ IMG OUTSIDE IMAGING W/OUT INTERPRETATION Final Result [facility] IMG INTERFACES * CT Chest Outside (No Interpretation) (04/04/2025 3:12 PM EST) Narrative [facility] IMG INTERFACES - 04/04/2025 3:12 PM EST This study is for PACS storage only and not for interpretation. us Biju METZ IMG OUTSIDE IMAGING W/OUT INTERPRETATION Final Result Performing Organization Address [facility] Co de Phone Number [facility] IMG INTERFACES * ECG 12-LEAD (04/03/2025 12:25 PM EST) Only the most recent of10 resultswithin the time period is included. Systolic Blood Pressure 132 mmHg [facility] Diastolic Blood Pressure 74 mmHg [facility] Ventricular Rate EKG/MIN 73 BPM [facility] Atrial Rate 73 BPM [facility] HI Interval 156 ms [facility] QRS Duration 82 ms [facility] QT Interval 442 ms [facility] QTC Interval 486 ms [facility] P [place] 73 degrees [facility] R Wave [place] 30 degrees [facility] T Wave [place] 54 degrees [facility] 04/03/2025 12:2 5 PM [...] indication for this examination in [facility]: S/P Cardiac Surgery COMPARISON: XR CHEST PA [...] indication for this examination in [facility]:S/P Cardiac Surgery COMPARISON: XR CHEST PA AND [...] included. WBC 5.75 4.00 - 11.00 K/uL [facility] RBC 3.39(L) 4.50 - 5.90 M/uL [facility] HGB 9.2(L) 13.5 - 17.5 g/dL [facility] HCT 28.8(L) 41.0 - 53.0 % [facility] PLT 236 150 - 450 K/uL [facility] MCV 85.0 80.0 - 100.0 fL [facility] MCH 27.1 27.0 - 31.0 pg [facility] MCHC 31.9(L) 32.0 - 36.0 g/dL [facility] RDW 20.9(H) 11.5 - 14.5 % [facility] MPV 9.3 8.4 - 12.0 fL [facility] NRBC 0.00 0.00 /100 WBCs [facility] ABSOLUTE NRBC 0.00 0.00 K/uL [facility] Blood 02/26/2025 6:04 AM EDT 02/26/2025 6:57 AM EDT us Marlyn Garrido IT TRAINER, DNP LAB BLOOD BKR ORDERABLES Fi nal Result Performing Organization Address City/[facility]/ZIP Co de Phone Number [address] [address] * Type and Screen (ABO,Rh,Antibody Screen) (02/26/2025 6:04 AM EDT) Only the most recent of3 resultswithin the time period is included. Expiration Date of Sample 03/01/2025 11:59 PM [facility] Antibody Screen Negative 02/26/2025 7:27 AM EDT [facility] Resulting Agency [facility] ABO O 02/26/2025 7:11 AM EDT [facility] Rh Positive 02/26/2025 7:11 AM EDT [facility] Blood 02/26/2025 6:04 AM EDT 02/26/2025 6:23 AM EDT us Pita Barney PA-C LAB BLOOD BANK TEST ORDER OZZY Final Result [address] [address] * Magnesium (02/26/2025 6:04 AM EDT) Only the most recent of15 resultswithin the time period is included. MAGNESIUM 2.1 1.7 - 2.4 mg/dL [facility] Blood 02/26/2025 6:04 AM EDT 02/26/2025 6:57 AM EDT Marlyn Garrido CNP, DNP LAB BLOOD BKR ORDERABLES Fi nal Result Performing Organization Address [facility] Co de Phone Number [address] [address] * (ABNORMAL) Basic metabolic panel (02/26/2025 6:04 AM EDT) Only the most recent of17 resultswithin the time period is included. SODIUM 131(L) 135 - 145 mmol/L [facility] POTASSIUM 4.5 3.4 - 5.0 mmol/L [facility] CHLORIDE 94(L) 98 - 108 mmol/L [facility] CO2 30 23 - 32 mmol/L [facility] BUN 16 8 - 25 mg/dL [facility] CREATININE 1.25 0.60 - 1.30 mg/dL [facility] GLUCOSE 105 70 - 110 mg/dL [facility] CALCIUM 9.1 8.5 - 10.5 mg/dL [facility] EGFR 70 >59 mL/min/1. 73m2 [facility] Comment:Estimated glomerular filtration rate calculated using the CKD-EPI refit equation. ANION GAP 7 3 - 17 mmol/L [facility] Blood 02/26/2025 6:04 AM EDT 02/26/2025 6:57 AM EDT Marlyn Garrido CNP, ELIA LAB BLOOD BKR ORDERABLES Fi nal Result Performing Organization Address [facility] Co de Phone Number [address] [address] * XR CHEST PA AND LATERAL 2 [...] indication for this examination in [facility]: Post-Op; s/p robotic mitral valve repair COMPARISON: [...] indication for this examination in [facility]:Post-Op; s/p robotic mitral valve repair COMPARISON: XR [...] indication for this examination in [facility]: S/P Cardiac Surgery COMPARISON: XR CHEST PORTABLE [...] indication for this examination in [facility]:S/P Cardiac Surgery COMPARISON: XR CHEST PORTABLE FINDINGS: [...] indication for this examination in [facility]: Chest Tube Removal COMPARISON: XR CHEST PORTABLE [...] indication for this examination in [facility]:Chest Tube Removal COMPARISON: XR CHEST PORTABLE 05:15:30.000 [...] originallycreated by Adeline Fernández. us Lavinia You [employer] ARCHITECT IMG XR CHEST Final Resu lt * Lactate (02/22/2025 7:37 AM EDT) LACTIC ACID (MMOL/L) 0.8 0.5 - 2.0 mmol/L [facility] Blood 02/22/2025 7:37 AM EDT 02/22/2025 7:45 AM EDT us Graciela Peoples PA-C LAB BLOOD BKR ORDERABLES Final Result [address] [address] * XR Chest Portable (02/22/2025 5:17 AM [...] indication for this examination in [facility]: Post-Op COMPARISON: XR CHEST PORTABLE ; CT [...] indication for this examination in [facility]:Post-Op COMPARISON: XR CHEST PORTABLE ; CT CARDIAC [...] included. ALBUMIN 3.2(L) 3.3 - 5.0 g/dL [facility] TOTAL BILIRUBIN 0.3 0.0 - 1.0 mg/dL [facility] DIRECT BILIRUBIN 0.1 0.0 - 0.3 mg/dL [facility] ALKALINE PHOSPHATASE 72 45 - 115 U/L [facility] AST 34 10 - 40 U/L [facility] ALT 32 10 - 55 U/L [facility] TOTAL PROTEIN 6.2 6.0 - 8.3 g/dL [facility] GLOBULIN 3.0 1.9 - 4.1 g/dL [facility] Blood 02/22/2025 1:43 AM EDT 02/22/2025 1:56 AM EDT Graciela Peoples PA-C LAB BLOOD BKR ORDERABLES Final Result Performing Organization Address City/[facility] Co de Phone Number [address] [address] * PTT (02/22/2025 1:43 AM EDT) Only the most recent of6 resultswithin the time period is included. APTT 29.2 24.0 - 37.5 sec [facility] Comment:Check MAR for the ta rget range that is ordered for your patient. Blood 02/22/2025 1:43 AM EDT 02/22/2025 1:56 AM EDT Graciela Peoples PA-C LAB BLOOD BKR ORDERABLES Final Result Performing Organization Address City/[facility]/ZIP Co de Phone Number [address] [address] * PT-INR (02/22/2025 1:43 AM EDT) Only the most recent of6 resultswithin the time period is included. PT 11.3 10.0 - 13.0 sec [facility] INR 1.0 0.9 - 1.1 [facility] Blood 02/22/2025 1:43 AM EDT 02/22/2025 1:56 AM EDT us Graciela Minor Shelton PA-C LAB BLOOD BKR ORDERABLES Final Result Performing Organization Address [facility] Co de Phone Number [address] [address] * (ABNORMAL) Phosphorus (02/22/2025 1:43 AM EDT) Only the most recent of8 resultswithin the time period is included. PHOSPHORUS 2.3(L) 2.6 - 4.5 mg/dL [facility] Blood 02/22/2025 1:4 3 AM EDT 02/22/2025 1:56 AM EDT us Graciela Minor Shelton PA-C LAB BLOOD BKR ORDERABLES Final Result Performing Organization Address [facility] de Phone Number [address] [address] * Creat. Comment (02/21/2025 9:42 AM EDT) Only the most recent of5 resultswithin the time period is included. Creat Comment Increasing Creatinine Value on your Patient: The calculated GFR may thus overestimate the true GFR and should not be used to guide medication dosing. Negative [facility] 02/21/2025 9:42 AM EDT 02/21/2025 9:47 AM EDT us Graciela Minor Shelton PA-C LAB BLOOD ORDERABLES Jeanine l Result Performing Organization Address [facility] Co de Phone Number [address] [address] * Prepare RBC (02/21/2025 12:41 AM EDT) Only the most recent of2 resultswithin the time period is included. Product Code [id number] 02/21/2025 12:41 AM EDT [facility] Unit Number [id number] 02/22/20 12:41 AM EDT [facility] Crossmatch Interpretation Compatible 02/18/2025 12:03 PM EDT [facility] Product Status Issued, Final 025 12:41 AM EDT [facility] ABO/Rh of Unit OPOS 02/21/2025 12:41 AM EDT [facility] Expiration Date/Time [id number] 02/21/2025 12:41 AM EDT [facility] Unit Barcode 5100 02/21/2025 12:41 AM EDT [facility] Product Code [id number] 02/21/2025 12:41 AM EDT [facility] Unit Number [id number] 02/22/20 12:41 AM EDT [facility] Crossmatch Interpretation Compatible 02/18/2025 12:03 PM EDT [facility] Product Status Issued, Final 025 12:41 AM EDT [facility] ABO/Rh of Unit OPOS 02/21/2025 12:41 AM EDT [facility] Expiration Date/Time [id number] 02/21/2025 12:41 AM EDT [facility] Unit Barcode 5100 02/21/2025 12:41 AM EDT [facility] 02/05/2025 3:3 3 PM EDT Blood Bank BLOOD BANK PRODUCT ORDERABLES Fi nal Result Performing Organization Address City/State/[facility] Co de Phone Number [address] [address] * XR Chest Portable (02/20/2025 10:18 PM [...] is included. FIO2 2L NC FIO2/L min [facility] PH 7.37 7.35 - 7.45 [facility] PCO2 41 35 - 42 mm[Hg] [facility] PO2 118(H) 80 - 100 mm[Hg] [facility] Base Excess, unspecified NEG 0.0 - 3.0 mmol/L [facility] Comment:1.8NEG HCO3, unspecified 23(L) 24 - 30 mmol/L [facility] SODIUM 131(L) 135 - 145 mmol/L [facility] POTASSIUM 4.3 3.5 - 5.0 mmol/L [facility] IONIZED CALCIUM 1.11(L) 1.14 - 1.30 mmol/L [facility] Glucose, whole bld 139(H) 70 - 110 mg/dL [facility] HGB (BG) 9.7(L) 13.5 - 17.5 g/dl [facility] O2 Sat (SO2, arterial) 98.7 94.0 - 99.0 % [facility] Blood 02/20/2025 8:30 PM EDT 02/20/2025 8:38 PM EDT us Gracielazia Peoples PA-C LAB BLOOD ORDERABLES Jeanine l Result Performing Organization Address [facility] Co de Phone Number [address] [address] * Lactate (blood gas) (02/20/2025 8:30 PM EDT) Only the most recent of19 resultswithin the time period is included. Lactate, blood 1.6 0.5 - 2.0 mmol/L [facility] Blood 02/20/2025 8:30 PM EDT 02/20/2025 8:38 PM EDT Graciela LANDERS-C LAB BLOOD BKR ORDERABLES Final Result Performing Organization Address [facility] Co de Phone Number [address] [address] * AMY COMP PROBE PLACED BY ANES [...] well. There were no probe complications noted. Operations Inspector Attestation: I have reviewed the images and [...] mixed bld) 58.6(L) 65.0 - 75.0 % [facility] Blood 02/20/2025 3:59 AM EDT 02/20/2025 4:09 AM EDT us Graciela Peoples PA-C LAB BLOOD BKR ORDERABLES Final Result Performing Organization Address City/[facility]/ZIP Co de Phone Number [address] [address] * (ABNORMAL) POCT Glucose (02/20/2025 3:17 AM EDT) Only the most recent of2 resultswithin the time period is included. Glucose, POCT 163(H) 70 - 110 mg/dL [facility] 02/20/2025 3:17 AM EDT 02/20/2025 3:19 AM EDT us Natalie Acosta MD POINT OF CARE TEST ORDERA BLES Final Result Performing Organization Address [facility] Co de Phone Number [address] [address] * XR Chest Portable (02/20/2025 2:47 AM [...] included. LIPASE 83(H) 13 - 60 U/L [facility] Blood 02/20/2025 1:33 AM EDT 02/20/2025 1:39 AM EDT us Graciela Peoples PA-C LAB BLOOD BKR ORDERABLES Final Result [facility] [address] [place] [address] * XR Chest Portable (02/19/2025 2:55 PM [...] indication for this examination in [facility]: Central Line; s/p cardiac surgery COMPARISON: XR [...] indication for this examination in [facility] Line; s/p cardiac surgery COMPARISON: XR CHEST [...] No Special Requests 02/19/2025 2:38 PM EDT [facility] MRSA Nasal Culture NEGATIVE FOR MRSA 02/20/2025 1:35 PM EDT [facility] Other (Nasal) 02/19/2025 2:4 0 PM EDT 02/19/2025 5:08 PM EDT Graciela LANDERS-C LAB MICROBIOLOGY CULTURE ORDERABLES Final Result [address] [address] * Vancomycin Resistant Enterococci (VRE), Rectal Screen (02/19/2025 2:40 PM EDT) Special Requests No Special Requests 02/19/2025 2:38 PM EDT [facility] VRE Rectal Culture NEGATIVE FOR VRE 02/20/2025 3:16 PM EDT [facility] Stool (Rectal) 02/19/2025 2: 40 PM EDT 02/19/2025 5:07 PM EDT Graciela LANDERS-C LAB MICROBIOLOGY CULTURE ORDERABLES Final Result [address] [address] * (ABNORMAL) Fibrinogen (02/19/2025 1:51 PM EDT) Pathologist [facility] FIBRINOGEN 166(L) 200 - 400 mg/dL [facility] Blood 02/19/2025 1:51 PM EDT 02/19/2025 1:57 PM EDT us Colin METZ LAB BLOOD BKR ORDERABLES Final Result Performing Organization Address City/[facility]/ZIP Co de Phone Number [address] [address] * POCT ACT from cardiac OR (02/19/2025 1:48 PM EDT) Only the most recent of11 resultswithin the time period is included. ACT FROM CARDIAC OR 106 90 - 130 sec [facility] 02/19/2025 1:48 PM EDT 02/19/2025 1:47 PM EDT us Natalie Acosta MD LAB POCT ENTER/EDIT ORDER OZZY Final Result Performing Organization Address [facility] Co de Phone Number [address] [address] * POCT Heparin Protamine Titration (02/19/2025 1:48 PM EDT) Only the most recent of11 resultswithin the time period is included. Heparin Protamine Titration 0.0 u/ml [facility] Misc Test Ref Range 0.0-1.2 u/ml [facility] Comment (Coag) Red [facility] 02/19/2025 1:48 PM EDT 02/19/2025 1:47 PM EDT us Natalie Acosta MD POINT OF CARE TEST ORDERA BLES Final Result Performing Organization Address [facility]/ZIP Co de Phone Number [address] [address] * (ABNORMAL) PUMP BLOOD GAS PLUS (02/19/2025 1:03 PM EDT) Only the most recent of9 resultswithin the time period is included. FIO2/FLOW CPB FIO2/L min [facility] TEMP. 37.0 deg C [facility] PH(UNCORRECTED) 7.30 [facility] PH 7.30(L) 7.32 - 7.45 [facility] PCO2(UNCORRECTE D) 46 mm[Hg] [facility] PCO2 46 35 - 50 mm[Hg] [facility] PO2(UNCORRECTED ) 260 mm[Hg] [facility] PO2 260(H) 40 - 90 mm[Hg] [facility] Base Excess, unspecified NEG 0.0 - 3.0 mmol/L [facility] Comment:4.2NEG HCO3, unspecified 22(L) 24 - 30 mmol/L [facility] SODIUM 134(L) 135 - 145 mmol/L [facility] POTASSIUM 4.8 3.5 - 5.0 mmol/L [facility] HGB (BG) 7.8(L) 13.5 - 17.5 g/dl [facility] IONIZED CALCIUM 1.26 1.14 - 1.30 mmol/L [facility] Glucose, whole bld 161(H) 70 - 110 mg/dL [facility] SO2, unspecified 99.8 94.0 - 99.9 % [facility] Comment: SO2 Reference Range: Arterial: 94.0-99.9 Venous: 60.0-85.0 Blood 02/19/2025 1:03 PM EDT 02/19/2025 1:08 PM EDT us Colin METZ LAB BLOOD ORDERAB[place] [address] * RBCs (02/19/2025 12:52 PM EDT) Only the most recent of2 resultswithin the time period is included. us Colin METZ NURSING TREATMENT ORDERABLES - ASSIGN Final Result * Anatomic Pathology (Non-MGB) (02/19/2025 10:09 AM EDT) Report [address] [address] Surgical Pathology Report Patient Name: JOSE WINSLOW : 1975 (Age: 50) Sex: M Location: [facility] B08 Institution: [facility] Date of Operation: 02/19/2025 [...] thickness. No calcifications or vegetations are identified. Statement Distribution Clerk sections are wrapped and are submitted in A1. Grossed by: Angela Spangler [facility] Clinical History Mitral valve prolapse [facility] Final Diagnosis A. P2 CHORD AND LEAFLET: Myxomatous degeneration. [facility] Gross Description Received fresh labeled Jose Winslow , and P2 chord and leaflet is a 2.8 x 1.7 x 0.5 cm aggregate of white rubbery tissue fragments admixed with fragments of chordae tendonae, ranging from 0.1-0.2 cm in thickness. No calcifications or vegetations are identified. Statement Distribution Clerk sections are wrapped and are submitted in A1. [facility] Conversion Type (Heart Valve, [place] Mitral) 02/19/2025 10:09 AM EDT 02/19/2025 2:15 PM EDT us Natalie Acosta MD LAB PATHOLOGY ORDERABLES Edited Result - Final [facility] [address] [place] [address] * (ABNORMAL) VENOUS BLOOD GAS PLUS (02/19/2025 8:55 AM EDT) FIO2 CPB FIO2/L min [facility] PH 7.34 7.30 - 7.40 [facility] PCO2 50 38 - 50 mm[Hg] [facility] PO2 51(H) 35 - 50 mm[Hg] [facility] Base Excess, unspecified 0.1 0.0 - 3.0 mmol/L [facility] HCO3, unspecified 26 24 - 30 mmol/L [facility] SODIUM 136 135 - 145 mmol/L [facility] POTASSIUM 4.1 3.5 - 5.0 mmol/L [facility] IONIZED CALCIUM 0.88(L) 1.14 - 1.30 mmol/L [facility] Glucose, whole bld 137(H) 70 - 110 mg/dL [facility] HGB (BG) 7.3(L) 13.5 - 17.5 g/dl [facility] SO2-VENOUS (SO2, venous) 78.8 60.0 - 85.0 % [facility] Blood 02/19/2025 8:55 AM EDT 02/19/2025 9:01 AM EDT Colin METZ LAB BLOOD ORDERABLES Final Res ult [address] [address] * HI ECHO HEART TRANSESOPH PROBE PLACEMT PERF (02/19/2025 8:29 AM EDT) Narrative Maria De Jesus Aparicio DO - 02/19/2025 8:29 AM EDT Maria De Jesus Aparicio DO 02/19/2025 8:30 AM Transesophageal Echocardiogram Procedure Note: Performed by: anesthesiologist Anesthesiologist: Colin Layne MBBS [place] Protocol performed: consent obtained, patient identified with 2 identifiers, correct procedure verified, correct site and laterality confirmed, verified equipment, coagulation status reviewed and implant history reviewed. Placement notes: probe advanced in esophagus atraumatic Colin METZ HI ANESTHESIA Final Result * HI INSERT/PLACE FLOW DIRECT CATH PERF, ANES VENOUS SHEATH - PA LINE, ANES SINGLE LUMEN PA LINE - PALINE (02/19/2025 8:28 AM EDT) Narrative Maria De Jesus Aparicio DO - 02/19/2025 8:28 AM EDT Maria De Jesus Aparicio DO 02/19/2025 8:29 AM Pulmonary Artery Line Placement Procedure Note: Start time: 02/19/2025 8:03 AM Anesthesiologist: Colin Layne MBBS Fellow/Resident/MANUAL ARTS THERAPY TEACHER: Maria De Jesus Aparicio DO Performed: fellow/resident/MANUAL ARTS THERAPY TEACHER [place] Protocol performed: consent obtained, patient identified with [...] 30 seconds? yes personal protection worn? yes medical services assistant followed standard precautions? yes sterile technique used [...] free fluid flow Complications?: No Colin METZ HI ANESTHESIA Final Result * ANES ETT DOUBLE LUMEN - AIRWAY LDA (02/19/2025 7:47 AM EDT) Narrative Maria De Jesus Aparicio DO - 02/19/2025 7:47 AM EDT Maria De Jesus Aparicio DO 02/19/2025 8:24 AM Airway Placement Procedure Note: Patient was not difficult to intubate. Procedure performed by: fellow/resident/MANUAL ARTS THERAPY TEACHER Anesthesiologist: Colin Layne MBBS Fellow/Resident/MANUAL ARTS THERAPY TEACHER: Maria De Jesus Aparicio DO Airway procedure [...] injury? no Complications observed? no Colin METZ HI ANESTHESIA Final Result * POCT heparin dose response (02/19/2025 7:45 AM EDT) ACT FROM CARDIAC OR 127 90 - 130 sec [facility] Projected heparin concentration 3.0 u/ml [facility] Heparin dose response 109 50 - 120 sec [facility] 02/19/2025 7:45 AM EDT 02/19/2025 7:51 AM EDT Natalie Acosta MD POINT OF CARE TEST ORDERA BLES Final Result [address] [address] * HI INSERT CATH ART PERCUT SHORTTERM PERF (02/19/2025 7:26 AM EDT) Narrative Maria De Jesus Aparicio DO - 02/19/2025 7:26 AM EDT Maria De Jesus Aparicio DO 02/19/2025 7:26 AM Arterial Line Placement Procedure Note: Location: pre-op Procedure performed by: fellow/resident/MANUAL ARTS THERAPY TEACHER Anesthesiologist: Colin Layne MBBS Fellow/Resident/MANUAL ARTS THERAPY TEACHER: Maria De Jesus Aparicio DO Indication(s): hemodynamic monitoring, arterial blood gas and frequent labs [place] Protocol performed: consent obtained, patient identified with [...] immediate complications Transducer type: regular Colin METZ HI ANESTHESIA Final Result * ANESTHESIA POINT OF CARE IMAGE CAPTURE (02/19/2025 6:36 AM EDT) Anatomical Region Laterality Modality Ultrasound Narrative 02/19/2025 6:36 AM EDT Maria De Jesus Aparicio DO 02/19/2025 6:36 AM Anesthesia Point of Care Image Capture Performed by: Maria De Jesus Aparicio DO Authorized by: Colin Layne MBBS Accession Number: [id number] Coiln METZ IMG POINT OF CARE EXAMS Final [...] indication for this examination in [facility]: Dyspnea on exertion; preoperative evaluation COMPARISON: CT [...] indication for this examination in [facility]:Dyspnea on exertion; preoperative evaluation COMPARISON: CT CARDIAC [...] PRE-OP PCR (02/05/2025 2:11 PM EDT) Pathologist [facility] MRSA PCR SCREEN NEGATIVE FOR MRSA (Methicillin Resistant S.aureus) NEGATIVE FOR MRSA (Methicillin Resistant S.aureus) [facility] MSSA PCR SCREEN POSITIVE FOR MSSA (Methicillin Susceptible S.aureus)(A) NEGATIVE FOR MSSA (Methicillin Susceptible S.aureus) [facility] Comment:This test was conduc jacque as part of Pre-Operative Screening for Staphylococcus aureus. Please direct any questions regarding this result to the Ordering Provider. Nasal (Nasal) 02/05/2025 2:1 1 PM EDT 02/05/2025 5:14 PM EDT Renetta Stevens CNP LAB GENERAL ORDERABLES Fi nal Result [address] [address] * (ABNORMAL) Comprehensive metabolic panel (02/05/2025 2:11 PM EDT) SODIUM 140 135 - 145 mmol/L [facility] POTASSIUM 4.2 3.4 - 5.0 mmol/L [facility] CHLORIDE 102 98 - 108 mmol/L [facility] CO2 26 23 - 32 mmol/L [facility] BUN 12 8 - 25 mg/dL [facility] CREATININE 1.31(H) 0.60 - 1.30 mg/dL [facility] GLUCOSE 97 70 - 110 mg/dL [facility] ALBUMIN 4.2 3.3 - 5.0 g/dL [facility] TOTAL PROTEIN 7.3 6.0 - 8.3 g/dL [facility] CALCIUM 9.1 8.5 - 10.5 mg/dL [facility] ALKALINE PHOSPHATASE 129(H) 45 - 115 U/L [facility] TOTAL BILIRUBIN 0.3 0.0 - 1.0 mg/dL [facility] AST 27 10 - 40 U/L [facility] ALT 21 10 - 55 U/L [facility] GLOBULIN 3.1 1.9 - 4.1 g/dL [facility] EGFR 66 >59 mL/min/1. 73m2 [facility] Comment:Estimated glomerular filtration rate calculated using the CKD-EPI refit equation. ANION GAP 12 3 - 17 mmol/L [facility] 02/05/2025 2:11 PM EDT 02/05/2025 7:10 PM EDT Renetta Stevens IT TRAINER LAB BLOOD BKR ORDERABLES Final Result Performing Organization Address City/[facility]/ZIP Co de Phone Number [address] [address] * ABO and Rh (02/05/2025 2:11 PM EDT) Expiration Date of Sample 02/22/2025 11:59 PM [facility] ABO O 02/21/2025 12:00 PM EDT [facility] Rh Positive 02/21/2025 12:00 PM EDT [facility] Comment:Patient Transfused, specimen exp. date updated Resulting Agency [facility] 02/05/2025 2:11 PM EDT 02/05/2025 3:33 PM EDT Blood Bank LAB BLOOD BANK TEST ORDERABLES F inal Result [address] [address] * (ABNORMAL) CBC and differential (02/05/2025 2:11 PM EDT) WBC 5.50 4.00 - 11.00 K/uL [facility] RBC 3.80(L) 4.50 - 5.90 M/uL [facility] HGB 9.4(L) 13.5 - 17.5 g/dL [facility] HCT 32.2(L) 41.0 - 53.0 % [facility] PLT 259 150 - 450 K/uL [facility] MCV 84.7 80.0 - 100.0 fL [facility] MCH 24.7(L) 27.0 - 31.0 pg [facility] MCHC 29.2(L) 32.0 - 36.0 g/dL [facility] RDW 21.8(H) 11.5 - 14.5 % [facility] MPV 10.3 8.4 - 12.0 fL [facility] NRBC 0.00 0.00 /100 WBCs [facility] ABSOLUTE NRBC 0.00 0.00 K/uL [facility] DIFF METHOD Auto [facility] NEUTS 55.0 48.0 - 76.0 % [facility] LYMPHS 28.7 18.0 - 41.0 % [facility] MONOS 10.5 4.0 - 11.0 % [facility] EOS 3.1 0.0 - 5.0 % [facility] BASOS 1.8(H) 0.0 - 1.5 % [facility] % IMMATURE GRANS 0.9 0.0 - 0.9 % [facility] ABSOLUTE NEUTS 3.02 1.92 - 7.60 K/uL [facility] ABSOLUTE LYMPHS 1.58 0.72 - 4.10 K/uL [facility] ABSOLUTE MONOS 0.58 0.16 - 1.10 K/uL [facility] ABSOLUTE EOS 0.17 0.00 - 0.50 K/uL [facility] ABSOLUTE BASOS 0.10 0.00 - 0.15 K/uL [facility] ABS IMMATURE GRANS 0.05 0.00 - 0.09 K/uL [facility] Blood 02/05/2025 2:11 PM EDT 02/05/2025 7:13 PM EDT us Renetta Stevens IT TRAINER LAB BLOOD BKR ORDERABLES Final Result [facility] [address] [place] [address] * Hemoglobin A1c (02/05/2025 2:11 PM EDT) HEMOGLOBIN A1C 5.0 4.3 - 5.6 % [facility] Comment:HbA1c levels 5.7-6.4 % represent pre-diabetes, indicating impaired glucose control and an increased risk of developing diabetes compared with lower HbA1c levels. The diagnostic HbA1c level for diabetes is 6.5% or greater. CALC MEAN BLD GLUC 97 mg/dL [facility] Comment:There is no [facility] normal range for the Calculated Mean Blood Glucose (CMBG), however a HbA1c of 5.6% (upper limit of normal) represents a CMBG of 114 mg/dL. The diagnostic hemoglobin A1c level for diabetes is greater than or equal to 6.5% which represents a CMBG greater than or equal to 140 mg/dL. 02/05/2025 2:11 PM EDT 02/05/2025 6:53 PM EDT us Renetta Stevens IT TRAINER LAB BLOOD BKR ORDERABLES Final Result Performing Organization Address City/State/[facility] Co de Phone Number [facility] [address] [place] [address] from [place] [address] [facility] [place] [address] [employer] [place] [address] [facility] OUT OF [facility] PPO [facility] OUT OF STATE PPO Advance Directives For more information, please contact: [phone] (9AM - 5PM [facility], Tuesday-Tuesday) Documents on File Type Date Recorded Patient Statement Distribution Clerk Expl anation Healthcare Proxy 02/06/2025 9:14 AM * Full Code (Latest Code Status on File) Date Activated Date Inactivated Comments 02/19/2025 2:37 PM Question Answer Comments Code Status Confirmed With: Patient Code Discussion Comments: Ofelia-op team discussed Care Teams Modular Home Crew Member Relationship Specialty Start Date End Date Faye Avelar MD [facility] [place] [address] PCP - General Internal Medicine 09/19/23 Shagufta Bhakta MD, PhD [address] [place] [address] [address] [place] [address] [email or web address] Operations Inspector Interventional Cardiology 10/11/23 Waqas Diaz MD [address] [place] [address] [address] [place] [address] Gastroenterology 02/14/25 Additional Source Comments The information contained in this document represents components of the legal health record. It is not the complete legal health record.[facility]
--- OUTSIDE RECORDS SUMMARY | 2025-04-29 22:34 | XMS_ITS | Encounter Summary ---
Author Organization [facility] Address [address] [facility] [address] [place] [address] Phone Care Team Providers Care Irrigation Installation Specialist Name Role Phone Faye Avelar MD Primary Care Provider [phone] Shagufta Bhakta MD, PhD Unavailable [phone] Waqas Diaz MD Unavailable [phone] Encounter Details Date Type Department Care Team (Late st Contact Info) Description 02/19/2025 Procedure Pass [facility] US [address] [place] [address] Social History Tobacco Use Types Packs/Day Years [...] 6:00 PM EDT John Mohamud, TIFFANY * Ray Suicide Severity Rating Scale (Screener/Recent Self-Report) Question [...] Description 04/03/2025 Procedure Pass [facility] Holter Lab [address] [place] [address], 5th Floor, [address] [place] [address] 04/03/2025 Procedure Pass [facility] [address] [facility], [address] [place] [address] 06/06/2025 8:30 AM EST Appointment [facility]ter Lab [address] [facility], 5th Floor, [address] [place] [address] Shagufta Bhakta MD, PhD [address] [facility] [address] [place] [address] [email or web address] 06/21/2025 8:00 AM EST Appointment [facility] [address] [facility], [address] [place] [address] Shagufta Bhakta MD, PhD [address] [facility] [address] [place] [address] [email or web address] documented as of this encounter Visit Diagnoses Not on filedocumented in this encounter Care Teams Irrigation Installation Specialist Relationship Specialty Start Date End Date Faye Avelar MD [address] [address] PCP - General Internal Medicine 09/19/23 Shagufta Bhakta MD, PhD [address] [facility] [address] [place] [address] [email or web address] Loading And Unloading Supervisor Interventional Cardiology 10/11/23 Waqas Diaz MD [address] [place] [address] [address] [place] [address] Gastroenterology 02/14/25 documented as of this encounter Additional Source Comments The information contained in this document represents components of the legal health record. It is not the complete legal health record.[facility]
--- OUTSIDE RECORDS SUMMARY | 2025-04-29 22:34 | XMS_ITS | Encounter Summary ---
Author Organization [facility] Address [address] [facility] [address] [place] [address] Phone Care Team Providers Care Escalation Engineer Name Role Phone Faye Avelar MD Primary Care Provider Shagufta Bhakta MD, PhD Unavailable [phone] Waqas Diaz MD Unavailable [phone] Encounter Details Date Type Department Care Team (Late st Contact Info) Description 09/11/2024 Procedure Pass [facility] Cardiac US [address] [place] [address] Social History Tobacco Use Types Packs/Day Years [...] st Contact Info) Description 04/03/2025 Procedure Pass [facility] Holter Lab [address] [facility], [address], [address] [place] [address] 04/03/2025 Procedure Pass [facility] [place] [facility] [address] [facility], [address] [place] [address] 06/06/2025 8:30 AM EST Appointment [facility] Holter Lab [address] [facility], [address], [address] [place] [address] Shagufta Bhakta MD, PhD [address] [facility] [address] [place] [address] [email or web address] 06/21/2025 8:00 AM EST Appointment [facility] Cardiology [address] [facility], [address] [place] [address] Shagufta Bhakta MD, PhD [address] [facility] [address] [place] [address] [email or web address] documented as of this encounter Visit Diagnoses Not on filedocumented in this encounter Care Teams Escalation Engineer Relationship Specialty Start Date End Date Faye Avelar MD [address] [facility] [place] [address] PCP - General Internal Medicine 09/19/23 Shagufta Bhakta MD, PhD [address] [facility] [address] [place] [address] [email or web address] Telephone Maintainer Interventional Cardiology 10/11/23 Waqas Diaz MD [address] [place] [address] Drive [address] [place] [address] Gastroenterology 02/14/25 documented as of this encounter Additional Source Comments The information contained in this document represents components of the legal health record. It is not the complete legal health record.[facility]
--- OUTSIDE RECORDS SUMMARY | 2025-04-29 22:34 | XMS_ITS | Encounter Summary ---
Author Organization [facility] Address [address] [facility] [address] [place] [address] Phone Care Team Providers Care Filler Block Inserter Remover Name Role Phone Faye Avelar MD Primary Care Provider Shagufta Bhakta MD, PhD Unavailable [phone] Waqas Diaz MD Unavailable [phone] Encounter Details Date Type Department Care Team ([facility] st Contact Info) Description 04/24/2024 Telephone VIRTUAL DEPARTMENT [address] [place] [phone] Natalie Acosta MD [address] [place] [address] [email or web address] Social History Tobacco Use Types Packs/Day [...] st Contact Info) Description 04/03/2025 Procedure Pass [facility] Lab [address] [facility], 5th Floor, [address] [place] [address] 04/03/2025 Procedure Pass [facility] Cardiology 52 [facility], [address] [place] [address] 06/06/2025 8:30 AM EST [facility] [address] [facility], 5th Floor, [address] [place] [address] Shagufat Bhakta MD, PhD [address] [address] [email or web address]. [email or web address] 06/21/2025 8:00 AM EST Appointment [facility] Cardiology [address] [facility], [address] [place] [address] Shagufta Bhakta MD, PhD [address] [address] DIANA@[email or web address]. du documented as of this encounter Visit Diagnoses Not on filedocumented in this encounter Care Teams Filler Block Inserter Remover Relationship Specialty Start Date End Date Faye Avelar MD [address] [facility] [place] [address] PCP - General Internal Medicine 09/19/23 Shagufta Bhakta MD, PhD [address] [address] [email or web address] Table Games Supervisor Interventional Cardiology 10/11/23 Waqas Diaz MD [address] [place] [address] [address] [place] [address] Gastroenterology 02/14/25 documented as of this encounter Additional Source Comments The information contained in this document represents components of the legal health record. It is not the complete legal health record.[facility]
--- OUTSIDE RECORDS SUMMARY | 2025-04-29 22:34 | XMS_ITS | Encounter Summary ---
Author Organization [facility] Address [address] [place] [address] Phone Care Team Providers Care Scoop Driver Name Role Phone Faye Avelar MD Primary Care Provider [phone] Shagufta Bhakta MD, PhD Unavailable [phone] Waqas Diaz MD Unavailable [phone] Encounter Details Date Type Department Care Team (Late st Contact Info) Description 10/13/2023 Procedure Pass [facility] [place] [address] [facility], 2nd Floor, [address] [place] [address] Social History Tobacco Use Types Packs/Day Years [...] st Contact Info) Description 04/03/2025 Procedure Pass [facility] [address] [facility], 5th Floor, [address] [place] [address] 04/03/2025 Procedure Pass [facility] Cardiology [address] [facility], [address] [place] [address] 06/06/2025 8:30 AM EST Appointment [facility] [address] [facility], 5th Floor, [address] [place] [address] Shagufta Bhakta MD, PhD 55 [facility] [address] [place] [address] [email or web address] 06/21/2025 8:00 AM EST Appointment [facility] Cardiology [address] [facility], [address] [place] [address] Shagufta Bhakta MD, PhD [address] [address] [email or web address] documented as of this encounter Visit Diagnoses Not on filedocumented in this encounter Care Teams Scoop Driver Relationship Specialty Start Date End Date Faye Avelar MD [address] [facility] [place] [address] PCP - General Internal Medicine 09/19/23 Shagufta Bhakta MD, PhD [address] [address] [email or web address] Director Funds Development Interventional Cardiology 10/11/23 Wa[address] MD [address] [place] [address] Gastroenterology 02/14/25 documented as of this encounter Additional Source Comments The information contained in this document represents components of the legal health record. It is not the complete legal health record.[facility]
--- OUTSIDE RECORDS SUMMARY | 2025-04-29 22:34 | XMS_ITS | Encounter Summary ---
Author Organization [facility] Address [address] [facility] [address] [place] [address] Phone Care Team Providers Care Electric Locomotive Crane Operator Name Role Phone Faye Avelar MD Primary Care Provider Shagufta Bhakta MD, PhD Unavailable [phone] Waqas Diaz MD Unavailable [phone] Encounter Details Date Type Department Care Team (Late st Contact Info) Description 09/22/2023 Procedure Pass [facility] [place] [address] [place] [address] Social History Tobacco Use Types Packs/Day Years [...] Description 04/03/2025 Procedure Pass [facility] [address] [facility], 5th Floor, [address] [place] [address] 04/03/2025 Procedure Pass [facility] Cardiology [address] [facility], [address] [place] [address] 06/06/2025 8:30 AM EST Appointment [facility] [address] [facility], 5th Floor, [address] [place] [address] Shagufta Bhakta MD, PhD 55 [facility] [address] [place] [address] DIANA@[email or web address]. [email or web address] 06/21/2025 8:00 AM EST Appointment [facility] Cardiology [address] [facility], [address] [place] [address] Shagufta Bhakta MD, PhD 55 [facility] 800 [place] [address] DIANA@[email or web address] documented as of this encounter Visit Diagnoses Not on filedocumented in this encounter Care Teams Electric Locomotive Crane Operator Relationship Specialty Start Date End Date Faye Avelar MD [address] [facility] [place] [address] PCP - General Internal Medicine 09/19/23 Shagufta Bhakta MD, PhD 55 [facility] [address] [place] [address] DIANA@[email or web address].[facility] lumpkin Solutions Architect Interventional Cardiology 10/11/23 Waqas Diaz MD [address] [place] [address] Drive [address] [place] [address] Gastroenterology 02/14/25 documented as of this encounter Additional Source Comments The information contained in this document represents components of the legal health record. It is not the complete legal health record.[facility]
--- OUTSIDE RECORDS SUMMARY | 2025-04-29 22:34 | XMS_ITS | Encounter Summary ---
Author Organization [facility] Address [address] [facility] [address] [place] [address] Phone Care Team Providers Care Medical Technologist Microbiology Name Role Phone Faye Avelar MD Primary Care Provider Shagufta Bhakta MD, PhD Unavailable [phone] Waqas Diaz MD Unavailable [phone] Encounter Details Date Type Department Care Team (Late st Contact Info) Description 10/02/2024 Procedure Pass [facility] PERIOPERATIVE DEPT [address] [place] [phone] Social History Tobacco Use Types Packs/Day Years [...] st Contact Info) Description 04/03/2025 Procedure Pass [facility] Holter Lab [address] [facility], 5th Floor, [address] [place] [address] 04/03/2025 Procedure Pass [facility] Cardiology [address] [facility], [address] [place] [address] 06/06/2025 8:30 AM EST Appointment [facility] Holter Lab [address] [facility], 5th Floor, [address] [place] [address] Shagufta Bhakta MD, PhD 55 [facility] [address] [place] [address] [email or web address]. [email or web address] 06/21/2025 8:00 AM EST Appointment [facility] [address] [facility], [address] [place] [address] Shagufta Bhakta MD, PhD 55 [facility] [address] [place] [address] DIANA@[email or web address]. [email or web address] documented as of this encounter Visit Diagnoses Not on filedocumented in this encounter Care Teams Medical Technologist Microbiology Relationship Specialty Start Date End Date Faye Avelar MD [address] [facility] [place] [address] PCP - General Internal Medicine 09/19/23 Shagufta Bhakta MD, PhD [address] [facility] [address] [place] [address] DIANA@[email or web address] Anatomical Embalmer Interventional Cardiology 10/11/23 Waqas Diaz MD [address] [place] [address] Drive [address] [place] [address] Gastroenterology 02/14/25 documented as of this encounter Additional Source Comments The information contained in this document represents components of the legal health record. It is not the complete legal health record.[facility]
--- OUTSIDE RECORDS SUMMARY | 2025-04-29 22:34 | XMS_ITS | Encounter Summary ---
Author Organization [facility] Address [address] [facility] [address] [place] [address] Phone Care Team Providers Care Sixth Grade Teacher Name Role Phone Faye Avelar MD Primary Care Provider Shagufta Bhakta MD, PhD Unavailable [phone] Waqas Diaz MD Unavailable [phone] Encounter Details Date Type Department Care Team (Late st Contact Info) Description 06/26/2024 Procedure Pass [facility] PERIOPERATIVE DEPT 55 [place] [phone] Social History Tobacco Use Types Packs/Day Years [...] st Contact Info) Description 04/03/2025 Procedure Pass [facility] Holter Lab 32 [facility], 5th Floor, [address] [place] [address] 04/03/2025 Procedure Pass [facility] Cardiology [address] [facility], [address] [place] [address] 06/06/2025 8:30 AM EST Appointment [facility] Holter Lab [address] [facility], 5th Floor, [address] [place] [address] Shagufta Bhakta MD, PhD 55 [facility] [address] [place] [address] DIANA@[email or web address]. [email or web address] 06/21/2025 8:00 AM EST Appointment [facility] [address] [facility], [address] [place] [address] Shagufta Bhakta MD, PhD 55 [facility] [address] [place] [address] DIANA@[email or web address]. [email or web address] documented as of this encounter Visit Diagnoses Not on filedocumented in this encounter Care Teams Sixth Grade Teacher Relationship Specialty Start Date End Date Faye Avelar MD [address] [facility] [place] [address] PCP - General Internal Medicine 09/19/23 Shagufta Bhakta MD, PhD 55 [facility] [address] [place] [address] DIANA@[email or web address] [place] [email or web address] Industrial Trainer Interventional Cardiology 10/11/23 Waqas Diaz MD [address] [place] [address] Drive [address] [place] [address] Gastroenterology 02/14/25 documented as of this encounter Additional Source Comments The information contained in this document represents components of the legal health record. It is not the complete legal health record.[facility]
--- OUTSIDE RECORDS SUMMARY | 2025-04-29 22:34 | XMS_ITS | Encounter Summary ---
Author Organization [facility] Address [address] [facility] [address] [place] [address] Phone Care Team Providers Care Major Case Detective Name Role Phone Faye Avelar MD Primary Care Provider [phone] Shagufta Bhakta MD, PhD Unavailable [phone] Waqas Diaz MD Unavailable [phone] Encounter Details Date Type Department Care Team ([facility] st Contact Info) Description 11/29/2024 Telephone VIRTUAL DEPARTMENT [address] [place] [phone] Natalie Acosta MD [address] [place] [address] [email or web address] Social History Tobacco Use Types [...] st Contact Info) Description 04/03/2025 Procedure Pass [facility] Holter Lab [address] [facility], 5th Floor, [address] [place] [address] 04/03/[address] [facility] Cardiology [address] [facility], [address] [place] [address] 06/06/2025 8:30 AM EST [facility]ment [facility] 32 [facility], 5th Floor, [address] [place] [address] Shagufta Bhakta MD, PhD [address] [address] DIANA@[email or web address]. [email or web address] 06/21/2025 8:[address] [facility] Cardiology [address] [facility], [address] [place] [address] Shagufta Bhakta MD, PhD [address] [address] DIANA@[email or web address] du documented as of this encounter Visit Diagnoses Not on filedocumented in this encounter Care Teams Major Case Detective Relationship Specialty Start Date End Date Faye Avelar MD [address] [facility] [place] [address] PCP - General Internal Medicine 09/19/23 Shagufta Bhakta MD, PhD [address] [address] DIANA@[email or web address] [place].[facility] Asp Net C Developer Interventional Cardiology 10/11/23 Waqas Diaz MD [address] [place] [address] [address] [place] [address] Gastroenterology 02/14/25 documented as of this encounter Additional Source Comments The information contained in this document represents components of the legal health record. It is not the complete legal health record.[facility]
--- OUTSIDE RECORDS SUMMARY | 2025-04-29 22:34 | XMS_ITS | Encounter Summary ---
Author Organization [facility] Address [address] [facility] [address] [place] [address] Phone Care Team Providers Care Private Chef Name Role Phone Faye Avelar MD Primary Care Provider Shagufta Bhakta MD, PhD Unavailable [phone] Waqas Diaz MD Unavailable [phone] Encounter Details Date Type Department Care Team ([facility] st Contact Info) Description 03/27/2024 Telephone VIRTUAL DEPARTMENT [address] [place] [phone] Natalie Acosta MD [address] [place] [address] [email or web address] Social History Tobacco Use Types Packs/Day Years [...] st Contact Info) Description 04/03/2025 Procedure Pass [facility] Holter Lab 32 [facility], 5th Floor, [address] [place] [address] 04/03/2025 Procedure Pass [facility] Cardiology [address] [facility], [address] [place] [address] 06/06/2025 8:30 AM EST [facility]ment [facility] 32 [facility], 5th Floor, [address] [place] [address] Shagufta Bhakta MD, PhD [address] [address] [email or web address]. [email or web address] 06/21/2025 8:00 AM EST Appointment [facility] Cardiology [address] [facility], [address] [place] [address] Shagufta Bhakta MD, PhD [address] [address] DIANA@[email or web address] du documented as of this encounter Visit Diagnoses Not on filedocumented in this encounter Care Teams Private Chef Relationship Specialty Start Date End Date Faye Avelar MD [address] [facility] [place] [address] PCP - General Internal Medicine 09/19/23 Shagufta Bhakta MD, PhD [address] [address] DIANA@[email or web address] Web Press Roll Tender Interventional Cardiology 10/11/23 Waqas Diaz MD [address] [place] [address] [address] [place] [address] Gastroenterology 02/14/25 documented as of this encounter Additional Source Comments The information contained in this document represents components of the legal health record. It is not the complete legal health record.[facility]
[2025-05-01 17:26] LABS: Iron 22 mcg/dL (45-160); Percent Iron Saturation 5 % (15-50); Total Iron Binding Capacity 410 mcg/dL (228-428); Unsaturated Iron Binding 388 ug/dL
== END 2025-04-29 13:49 | disposition home or self-care (01) ==
LOC: HO.HMGCLDS 13:48
PROVIDERS: Nurse Practitioner Family; PCP Internal Medicine; Visit Provider Internal Medicine
DX: D50.0 Iron deficiency anemia secondary to blood loss (chronic) (principal)
CPT/HCPCS: 36415; 80053; 82728; 85025

== ENCOUNTER 2025-05-21 14:38 | Outpatient (REF) | payer BC, SELFPAY ==
--- OUTSIDE RECORDS SUMMARY | 2023-12-15 08:40 | XMS_ITS ---
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 Name Role Phone Valentino HATCH, [facility] Primary Care Provider Waqas Cash [phone] REASON FOR VISIT rectal bleeding, wt loss,diarrhea Problems Problem Type SNOMED Code ICD Code Onset Dates Problem Status W/U Status Risk Notes Problem Diverticular disease of colon (984422169) Diverticulosis of large intestine without perforation or abscess without bleeding (K57.30) Active confirmed Encounters Encounter Location Date Provider Diagnosis [facility] Outpatient [address] [place] [id number] 12/15/2023 Waqas Diaz Colon polyps K63.5 ; [...] Name:Waqas Diaz , 06/19/2025 03:40:00 PM, [address], [address], [place], [address], Progress Notes * JOSE WINSLOW JDOB: [birth year] (50 yo M)Acc No.[id number]:12/15/2023 COLON WITH MAC Patient: JOSE CHING Provider: Jimena Diaz MD :1975 A ge:48 Y S ex:Male Date:12/15/2023 Address: [id number] Pcp:Faye Avelar MD Subjective: * Chief Complaints: [...] * Procedure Codes: 4 5385 LESION REMOVAL [id number] COLONOSCOPY AND BIOPSY, Modifiers: 59 Billing Information: * Procedure Codes: 54438 LESION REMOVAL COLONOSCOPY. 35455 COLONOSCOPY AND BIOPSY. Modifiers: 59 * The named appointment provid er may or may not be the originator of this progress note, and it is not deemed complete until electronically signed by the appointment provider. Sign off status: Pending * Provider: Jimena Diaz MD Date: 0 12/15/2023 Generated for Blanca lou/Ariel/eTransmitting on: 1 06:17 PM EST
--- OUTSIDE RECORDS SUMMARY | 2024-01-13 08:40 | XMS_ITS ---
Author Organization [facility] Address [address] [place] [address] Care Team Providers Care Hoisting Engine Operator Name Role Phone Valentino HATCH, Faye Primary Care Provider Waqas Cash [phone] REASON FOR VISIT chronic diarrhea, abnormal weight loss, abnormal findings on diagnostic imaging Encounters Encounter Location Date Provider Diagnosis [facility] Outpatient [address] [place] [id number] 01/13/2024 Waqas Diaz Plan Of Treatment Next Appt Details Provider Name:Waqas Diaz , 06/19/2025 03:40:00 PM, [address], [address], [place], [address], Progress Notes * JOSE WINSLOWDOB: [birth year] (50 yo M)Acc No.[id number]:01/13/2024 EGD/MAC Patient: N ARELY JOSE Baez Provider: Jimena Diaz MD :1975 A ge:48 Y S ex:Male Date:01/13/2024 Address:[address] [id number] Pcp:Faye Avelar MD Subjective: * Chief Complaints: * C hronic diarrhea, abnormal weight loss, abnormal findings on diagnostic imaging * The named appointment provid er may or may not be the originator of this progress note, and it is not deemed complete until electronically signed by the appointment provider. Sign off status: Pending * Provider: Jimena Diaz MD Date: 0 01/13/2024 Generated for Blanca lou/Ariel/Mally on: 1 06:17 PM EST
--- OUTSIDE RECORDS SUMMARY | 2024-01-18 06:30 | XMS_ITS ---
Author Organization [facility] Address [address] [place] [address] Care Team Providers Care Hatch Tender Name Role Phone Valentino HATCH, [facility] Primary Care Provider Waqas Cash [phone] REASON FOR VISIT chronic diarrhea, abnormal weight loss, abnormal findings on diagnostic imaging Problems Problem Type SNOMED Code ICD Code Onset Dates Problem Status W/U Status Risk Notes Problem Gastroesophageal reflux disease with esophagitis (disorder) (800780851) Gastroesophageal reflux disease with esophagitis without hemorrhage (K21.00) Active confirmed Problem Duodenitis (67489878) Duodenitis (K29.80) Active confirmed Problem Duodenal ulcer disease (10356135) Duodenal ulcer disease (K26.9) Active confirmed Problem Gastric ulcer (463425828) Gastric ulcer (K25.9) Active confirmed Encounters Encounter Location Date Provider Diagnosis [facility] [place] [address] [place] [phone] 01/18/2024 Waqas Diaz Gastroesophageal ref lux disease [...] 03:40:00 PM, [address], [address], [place], [address], Progress Notes * GOLDY JOSE JDOB: [birth year] (50 yo M)Acc No.[id number]:01/18/2024 EGD/MAC Patient: JOSE CHING Provider: Jimena Diaz MD :1975 A ge:48 Y S ex:Male Date:01/18/2024 Address:[address] [place] [address] Pcp:Faye Avelar MD Subjective: * Chief Complaints: [...] ENDOSCOPY, BIOPSY Billing Information: * Procedure Codes: 19894 UPPER GI ENDOSCOPY, BIOPSY. * The named appointment provid er may or may not be the originator of this progress note, and it is not deemed complete until electronically signed by the appointment provider. Sign off status: Pending * Provider: Jimena Diaz MD Date: 0 01/18/2024 Generated for Jonathani ng/Faxing/eTransmitting on: 1 06:17 PM EST
--- OUTSIDE RECORDS SUMMARY | 2024-08-23 09:30 | XMS_ITS ---
Author Organization [facility] Address [address] [place] [address] Care Team Providers Care Melon Packer Name Role Phone Valentino HATCH, [facility] Primary Care Provider Waqas Cash [phone] REASON FOR VISIT diarrhea,anemia, rectal bleeding ,peptic ulcer Encounters Encounter Location Date Provider Diagnosis [facility] [place] [address] [place] [id number] 08/23/2024 Waqas Diaz Rectal bleed K62.5 ; [...] [address], [address], [place], [address], Progress Notes * JOSE WINSLOW JDOB: [birth year] (50 yo M)Acc No.[id number]:08/23/2024 EGD and COL/MAC Patient: JOSE CHING Provider: Jimena Diaz MD :1975 A ge:49 Y S ex:Male Date:08/23/2024 Address:[address] [place] [address] [id number] Pcp:Faye Avelar MD Subjective: * Chief Complaints: [...] * Procedure Codes: 4 5380 COLONOSCOPY AND [id number] UPPER GI ENDOSCOPY, BIOPSY Billing Information: * Procedure Codes: 89885 COLONOSCOPY AND BIOPSY. 58195 UPPER GI ENDOSCOPY, BIOPSY. * The named appointment provid er may or may not be the originator of this progress note, and it is not deemed complete until electronically signed by the appointment provider. Sign off status: Pending * Provider: Jimena Diaz MD Date: 0 08/23/2024 Generated for Blanca lou/Ariel/Josiahsmitting on: 1 06:17 PM EST
[2025-05-21 16:17] LABS: MANUAL DIFF FLAG NO
[2025-05-21 16:31] LABS: Hematocrit 25.8 % (42.0-52.0); Hemoglobin 7.8 g/dl (14.0-18.0); Imm Gran Abs Auto 0.03 X10*3/uL (0.00-0.03); Imm Gran Pct Auto 0.6 % (0.0-0.4); Lymphocytes Absolute Auto 1.1 X10*3/uL (1.2-4.9); Mean Corpuscular HGB Conc 30.2 g/dl (31.0-36.0); Mean Corpuscular Hemoglobin 25.7 pg (27.0-33.0); Mean Corpuscular Volume 85.1 fL (80.0-98.0); NRBC Abs Auto 0.000 X10*3/uL (0.0-0.012); NRBC Pct Auto 0.0 /100WBC (0.0-0.2); Platelet Count 274 X10*3/uL (160-400); Red Blood Count 3.03 X10*6/uL (4.60-5.80); White Blood Count 5.1 X10*3/uL (4.8-10.8)
--- OUTSIDE RECORDS SUMMARY | 2025-05-21 18:17 | XMS_ITS | Patient Health Record ---
Author Organization [facility] Address [address] [place] [address] Care Team Providers Care Research Development Manager Name Role Phone Valentino HATCH, [facility] Primary Care Provider Waqas Cash [phone] Allergies No Known Allergies Results Component Value Reference Range Flag Notes Complete Blood Count Auto Di ff (Not yet reviewed by provider) Interpretation: Performing Lab:[facility], [address] [place] [phone] Notes/Report: White Blood Count 5.5 4.8-10.8 X10*3/uL N Red Blood Count 2.97 4.60-5.80 X10*6/uL L Hemoglobin 9.6 14.0-18.0 g/dl L Hematocrit 28.9 42.0-52.0 % L Mean Corpuscular Volume 97.3 80.0-98.0 fL N Mean Corpuscular Hemoglobin 32.3 27.0-33.0 pg N Mean Corpuscular HGB Conc 33.2 31.0-36.0 g/dl N Red Cell Distribution Width 12.5 11.0-16.0 % N Platelet Count 246 160-400 X10*3/uL N Mean Platelet Volume 9.7 9.4-12.4 fL N Neutrophils Percent Auto 59.7 45-73 % N Imm Gran Pct Auto 0.4 0.0-0.4 % N Lymphocytes Percent Auto 24.0 20-40 % N Monocytes Percent Auto 9.7 2-11 % N Eosinophils Percent Auto 5.1 0-4 % H Basophils Percent Auto 1.1 0-2 % N NRBC Pct Auto 0.0 0.0-0.2 /100WBC N Neutrophils Absolute Auto 3.3 2.0-8.3 x10*3/uL N Imm Gran Abs Auto 0.02 0.00-0.03 X10*3/uL N Lymphocytes Absolute Auto 1.3 1.2-4.9 X10*3/uL N Monocytes Absolute Auto 0.5 0.1-1.2 X10*3/uL N Eosinophils Absolute Auto 0.3 0.0-0.4 X10*3/uL N Basophils Absolute Auto 0.1 0.0-0.2 X10*3/uL N NRBC Abs Auto 0.000 0.0-0.012 X10*3/uL N Erythrocyte Sedimentation Ra te Reviewed date:07/13/2024 07:08:00 PM Interpretation: Performing Lab:[facility], [address] [place] [phone] Notes/Report: Erythrocyte Sedimentation Rate 27 0-15 MM/HR H Patients with polycythemia and many hemoglobin abnormalities may have depressed sed rates whereas patients with anemia may have elevated sed rates. Liver Panel Reviewed date:07/13/2024 07:07:38 PM Interpretation: Performing Lab:[address] [phone] Notes/Report: Bilirubin Total 0.4 0.0-1.0 mg/dL N Bilirubin Direct 0.1 0.0-0.5 mg/dL N Aspartate Amino Transferase 23 5-37 U/L N Alanine Aminotransferase 17 0-40 U/L N Total Protein 7.1 6.5-8.0 g/dL N Albumin Level 3.8 3.5-5.0 g/dL N Alkaline Phosphatase 119 39-117 U/L H Basic Metabolic Panel Reviewed date:07/13/2024 07:07:22 PM Interpretation: Performing Lab:[address] [phone] Notes/Report: Sodium 139 135-145 mmol/L N Potassium 4.1 3.3-5.1 mmol/L N Chloride 105 96-108 mmol/L N Carbon Dioxide 28 22-29 mmol/L N Anion Gap 10 12-20 L Blood Urea Nitrogen 11 9-16 mg/dL N Creatinine 1.29 0.5-1.4 mg/dL N Estimated Glomerular Filt Rate 59 Chronic Kidney Disease: Estimated GFR < 60 mL/min/1.73m2 Severe Kidney Disease: Estimated GFR < 15 mL/min/1.73m2 Glucose Random 115 60-115 mg/dL N Calcium 9.1 8.4-10.2 mg/dL N C Reactive Protein Reviewed date:07/13/2024 07:07:50 PM Interpretation: Performing Lab:[address] [phone] Notes/Report: C Reactive Protein 0.24 < or = 0.50 mg/dL N Folate Reviewed date:07/20/2024 05:23:21 PM Interpretation: Performing Lab:[address] [phone] Notes/Report: Folate 12.6 > or = 4.0 ng/mL Reference Values: > or = 4.0 ng/mL < 4.0 ng/mL suggests folate deficiency Methotrexate, aminopterin and folinic acid (leucovorin) are chemotherapeutic agents whose molecular structures are similar to folate; therefore, the Information Clerk Cashier folate assay cannot be used for patients using these drugs. Leukocytes Stool Qualitative Reviewed date:07/24/2024 12:40:57 PM Interpretation: Performing Lab:[address] [phone] Notes/Report: Leukocytes Stool Qualitative NEGATIVE NEGATIVE CDiff Gene PCR Reviewed date:07/29/2024 04:12:58 PM Interpretation: Performing Lab:[address] [phone] Notes/Report: CDiff Gene PCR NEGATIVE Negative If C. difficile strongly suspected despite one negative test, a second test may be sent vs. empiric treatment for C. difficile infection. GI PANEL Reviewed date:07/24/2024 12:40:48 PM Interpretation: Performing Lab:[address] [phone] Notes/Report: Campylobacter Not Detected Not Detect. Plesiomonas [...] is performed by Multiplexed PCR, utilizing the Venaxis Array. Complete Blood Count Auto Di ff Reviewed date:08/19/2024 09:34:23 PM Interpretation: Performing Lab:[facility], [address] [place] [phone] Notes/Report: White Blood Count 5.4 4.8-10.8 X10*3/uL N Red Blood Count 2.84 4.60-5.80 X10*6/uL L Hemoglobin 7.5 14.0-18.0 g/dl L Hematocrit 24.7 42.0-52.0 % L Mean Corpuscular Volume 87.0 80.0-98.0 fL N Mean Corpuscular Hemoglobin 26.4 27.0-33.0 pg L Mean Corpuscular HGB Conc 30.4 31.0-36.0 g/dl L Red Cell Distribution Width 17.2 11.0-16.0 % H Platelet Count 255 160-400 X10*3/uL N Mean Platelet Volume 10.2 9.4-12.4 fL N Neutrophils Percent Auto 61.5 45-73 % N Imm Gran Pct Auto 0.4 0.0-0.4 % N Lymphocytes Percent Auto 20.9 20-40 % N Monocytes Percent Auto 12.0 2-11 % H Eosinophils Percent Auto 4.1 0-4 % H Basophils Percent Auto 1.1 0-2 % N NRBC Pct Auto 0.0 0.0-0.2 /100WBC N Neutrophils Absolute Auto 3.3 2.0-8.3 x10*3/uL N Imm Gran Abs Auto 0.02 0.00-0.03 X10*3/uL N Lymphocytes Absolute Auto 1.1 1.2-4.9 X10*3/uL L Monocytes Absolute Auto 0.6 0.1-1.2 X10*3/uL N Eosinophils Absolute Auto 0.2 0.0-0.4 X10*3/uL N Basophils Absolute Auto 0.1 0.0-0.2 X10*3/uL N NRBC Abs Auto 0.000 0.0-0.012 X10*3/uL N Erythrocyte Sedimentation Ra te Reviewed date:08/10/2024 06:09:31 PM Interpretation: Performing Lab:[address] [phone] Notes/Report: Erythrocyte Sedimentation Rate 38 0-15 MM/HR H Patients with polycythemia and many hemoglobin abnormalities may have depressed sed rates whereas patients with anemia may have elevated sed rates. Liver Panel Reviewed date:08/10/2024 06:09:21 PM Interpretation: Performing Lab:[address] [phone] Notes/Report: Bilirubin Total 0.3 0.0-1.0 mg/dL N Bilirubin Direct 0.1 0.0-0.5 mg/dL N Aspartate Amino Transferase 19 5-37 U/L N Alanine Aminotransferase 17 0-40 U/L N Total Protein 7.3 6.5-8.0 g/dL N Albumin Level 3.8 3.5-5.0 g/dL N Alkaline Phosphatase 105 39-117 U/L N Basic Metabolic Panel Reviewed date:08/10/2024 06:09:03 PM Interpretation: Performing Lab:[facility], [address] [place] [phone] Notes/Report: Sodium 139 135-145 mmol/L N Potassium 4.1 3.3-5.1 mmol/L N Chloride 106 96-108 mmol/L N Carbon Dioxide 26 22-29 mmol/L N Anion Gap 11 12-20 L Blood Urea Nitrogen 11 9-16 mg/dL N Creatinine 1.21 0.5-1.4 mg/dL N Estimated Glomerular Filt Rate > 60 Chronic Kidney Disease: Estimated GFR < 60 mL/min/1.73m2 Severe Kidney Disease: Estimated GFR < 15 mL/min/1.73m2 Glucose Random 98 60-115 mg/dL N Calcium 8.8 8.4-10.2 mg/dL N IRON PROFILE Reviewed date:08/10/2024 06:08:36 PM Interpretation: Performing Lab:[facility], [address] [place] [phone] Notes/Report: Iron 12 45-160 mcg/dL L Total Iron Binding Capacity 467 228-428 mcg/dL H Percent Iron Saturation 3 15-50 % L Unsaturated Iron Binding 455 Ferritin Reviewed date:08/10/2024 06:08:18 PM Interpretation: Performing Lab:[facility], [address] [place] [phone] Notes/Report: Ferritin 7 20-250 ng/mL L C Reactive Protein Reviewed date:08/10/2024 06:08:07 PM Interpretation: Performing Lab:[facility], [address] [place] [phone] Notes/Report: C Reactive Protein 0.28 < or = 0.50 mg/dL N Vitamin B12 Reviewed date:08/10/2024 04:20:38 PM Interpretation: Performing Lab:[facility], [address] [place] [phone] Notes/Report: Vitamin B12 802 200-900 pg/mL N NORMAL 200-900 PG/ML INDETERMINATE 160-199 PG/ML DEFICIENT < 160 PG/ML Pathology Reviewed date:08/30/2024 06:32:21 PM Interpretation: Performing Lab:[facility], [address] [place] [phone] Notes/Report: Complete Blood Count Auto Di ff Reviewed date:02/25/2025 11:44:52 PM Interpretation: Performing Lab:[facility], [address] [place] [phone] Notes/Report: White Blood Count 6.5 4.8-10.8 X10*3/uL N Red Blood Count 4.18 4.60-5.80 X10*6/uL L Hemoglobin 10.7 14.0-18.0 g/dl L Hematocrit 35.6 42.0-52.0 % L Mean Corpuscular Volume 85.2 80.0-98.0 fL N Mean Corpuscular Hemoglobin 25.6 27.0-33.0 pg L Mean Corpuscular HGB Conc 30.1 31.0-36.0 g/dl L Red Cell Distribution Width 20.8 11.0-16.0 % H Platelet Count 194 160-400 X10*3/uL Mean Platelet Volume 9.6 9.4-12.4 fL N Neutrophils Percent Auto 56.9 45-73 % N Imm Gran Pct Auto 0.3 0.0-0.4 % N Lymphocytes Percent Auto 25.8 20-40 % N Monocytes Percent Auto 10.1 2-11 % N Eosinophils Percent Auto 5.4 0-4 % H Basophils Percent Auto 1.5 0-2 % N NRBC Pct Auto 0.0 0.0-0.2 /100WBC N Neutrophils Absolute Auto 3.7 2.0-8.3 x10*3/uL N Imm Gran Abs Auto 0.02 0.00-0.03 X10*3/uL N Lymphocytes Absolute Auto 1.7 1.2-4.9 X10*3/uL N Monocytes Absolute Auto 0.7 0.1-1.2 X10*3/uL N Eosinophils Absolute Auto 0.4 0.0-0.4 X10*3/uL N Basophils Absolute Auto 0.1 0.0-0.2 X10*3/uL N NRBC Abs Auto 0.000 0.0-0.012 X10*3/uL N IRON PROFILE Reviewed date:09/24/2024 11:13:18 PM Interpretation: Performing Lab:[facility], [address] [place] [phone] Notes/Report: Iron 36 45-160 mcg/dL L Total Iron Binding Capacity 424 228-428 mcg/dL N Percent Iron Saturation 8 15-50 % L Unsaturated Iron Binding 388 Ferritin Reviewed date:09/22/2024 10:10:47 PM Interpretation: Performing Lab:[facility], [address] [place] [phone] Notes/Report: Ferritin 28 20-250 ng/mL N Complete Blood Count Auto Di ff Reviewed date:02/25/2025 11:44:38 PM Interpretation: Performing Lab:[facility], [address] [place] [phone] Notes/Report: White Blood Count 5.4 4.8-10.8 X10*3/uL N Red Blood Count 4.03 4.60-5.80 X10*6/uL L Hemoglobin 10.3 14.0-18.0 g/dl L Hematocrit 34.3 42.0-52.0 % L Mean Corpuscular Volume 85.1 80.0-98.0 fL N Mean Corpuscular Hemoglobin 25.6 27.0-33.0 pg L Mean Corpuscular HGB Conc 30.0 31.0-36.0 g/dl L Red Cell Distribution Width 25.0 11.0-16.0 % H Platelet Count 244 160-400 X10*3/uL N Mean Platelet Volume 10.2 9.4-12.4 fL N Neutrophils Percent Auto 51.4 45-73 % N Imm Gran Pct Auto 0.6 0.0-0.4 % H Lymphocytes Percent Auto 29.0 20-40 % N Monocytes Percent Auto 12.9 2-11 % H Eosinophils Percent Auto 4.6 0-4 % H Basophils Percent Auto 1.5 0-2 % N NRBC Pct Auto 0.0 0.0-0.2 /100WBC N Neutrophils Absolute Auto 2.8 2.0-8.3 x10*3/uL N Imm Gran Abs Auto 0.03 0.00-0.03 X10*3/uL N Lymphocytes Absolute Auto 1.6 1.2-4.9 X10*3/uL N Monocytes Absolute Auto 0.7 0.1-1.2 X10*3/uL N Eosinophils Absolute Auto 0.3 0.0-0.4 X10*3/uL N Basophils Absolute Auto 0.1 0.0-0.2 X10*3/uL N NRBC Abs Auto 0.000 0.0-0.012 X10*3/uL N Erythrocyte Sedimentation Ra te Reviewed date:02/16/2025 09:16:23 PM Interpretation: Performing Lab:[facility], [address] [place] [phone] Notes/Report: Erythrocyte Sedimentation Rate 10 0-15 MM/HR N Patients with polycythemia and many hemoglobin abnormalities may have depressed sed rates whereas patients with anemia may have elevated sed rates. Liver Panel Reviewed date:02/16/2025 09:16:12 PM Interpretation: Performing Lab:[facility], [address] [place] [phone] Notes/Report: Bilirubin Total 0.4 0.0-1.0 mg/dL N Bilirubin Direct 0.1 0.0-0.5 mg/dL N Aspartate Amino Transferase 35 5-37 U/L N Alanine Aminotransferase 36 0-40 U/L N Total Protein 7.2 6.5-8.0 g/dL N Albumin Level 4.1 3.5-5.0 g/dL N Alkaline Phosphatase 129 39-117 U/L H Basic Metabolic Panel Reviewed date:02/16/2025 09:15:49 PM Interpretation: Performing Lab:[address] [phone] Notes/Report: Sodium 141 135-145 mmol/L N Potassium 4.4 3.3-5.1 mmol/L N Chloride 103 96-108 mmol/L N Carbon Dioxide 32 22-29 mmol/L H Anion Gap 10 12-20 L Blood Urea Nitrogen 17 9-16 mg/dL H Creatinine 1.27 0.5-1.4 mg/dL N Estimated Glomerular Filt Rate > 60 Chronic Kidney Disease: Estimated GFR < 60 mL/min/1.73m2 Severe Kidney Disease: Estimated GFR < 15 mL/min/1.73m2 Glucose Random 92 60-115 mg/dL N Calcium 8.8 8.4-10.2 mg/dL N IRON PROFILE Reviewed date:02/25/2025 11:44:25 PM Interpretation: Performing Lab:[facility], [address] [place] [phone] Notes/Report: Iron 33 45-160 mcg/dL L Total Iron Binding Capacity 399 228-428 mcg/dL N Percent Iron Saturation 8 15-50 % L Unsaturated Iron Binding 366 C Reactive Protein Reviewed date:02/16/2025 09:15:00 PM Interpretation: Performing Lab:[facility], [address] [place] [phone] Notes/Report: C Reactive Protein 0.12 < or = 0.50 mg/dL N Calprotectin, Fecal Reviewed date:07/29/2024 04:12:47 PM Interpretation: Performing Lab:[facility], [address] [place] [phone] Notes/Report: Calprotectin, Fecal 390 A Reference Range: <50 Normal 50-120 Borderline >120 Elevated Calprotectin in Crohn's disease and ulcerative colitis can be five to several thousand times above the reference population (50 mcg/g or less). Levels are usually 50 mcg/g or less in healthy patients and with irritable bowel syndrome. Repeat testing in 4-6 weeks is suggested for borderline values. THIS TEST WAS PERFORMED AT: [facility] [address] [place] [address] BENNIE BEDOLLA MD,PHD,XIOMARA Ferritin Reviewed date:02/14/2025 12:29:57 PM Interpretation: Performing Lab:[address] [phone] Notes/Report: Ferritin 89 20-250 ng/mL N Reason For Referral No Information Medications Medication SIG (Take, Route, Frequency, Duration) Notes Start Date End Date Status Folic Acid 1 MG Tablet 1 tablet Orally Once a day; Duration: 30 days 03/08/2025 Active Valsartan 40 MG Tablet TAKE 1 TABLET BY MOUTH EVERY DAY Oral; Duration: 30 Active Omeprazole 40 MG Capsule Delayed Release TAKE 1 CAPSULE BY MOUTH EVERY DAY; Duration: 90 Active Vitamin D 50 MCG (1999 UT) Tablet 1 tablet Orally Once a day Active Folic Acid 1 MG Tablet 1 tablet Orally Once a day 12/05/2023 Active Atenolol 25 MG Tablet 1 tablet Orally Once a day; Duration: 30 day(s) 11/30/2023 Active Amoxicillin 500 MG Capsule 2 Orally Twice a day; Duration: 10 days 08/30/2024 Active Clarithromycin 500 MG Tablet 1 tablet Orally Twice a day; Duration: 10 days 08/30/2024 Active Omeprazole 20 MG Capsule Delayed Release 1 Orally Twice a day; Duration: 10 days 08/30/2024 Active Omeprazole 20 MG Capsule Delayed Release 1 every morning Orally Once a day; Duration: 30 days Please tell him to start this Rx after he finishes the 10 days of the H.pylori treatment with the 10 day Rx's for the twice a day omeprazole, Amoxicillin, and Clarithromycin. Thanks very much 08/30/2024 Active Lomotil 2.5-0.025 MG Tablet 1 or 2 Orally Every 4 to 6 hours as needed for diarrhea. You can take 1 or 2 first thing every morning and before meals to try to prevent the diarrhea in the first place.; Duration: 30 days 07/08/2024 Not-Taking/P RN Vitamin B 12 250 MCG Lozenge 2 lozenges Orally Once a day; Duration: 30 day(s) Active Iron (Ferrous Sulfate) 325 (65 Fe) MG Tablet 1 tablet Orally twice a day Active Immunizations Vaccine Route Administration Date Status Comme nts Influenza Unknown 04/12/2023 Administered Social History Tobacco Use: Social History Observation Description Date Details (start date - stop date) Current Smoker NA - NA Social History Drug/Alcohol: Social Info Question Answer Notes AUDIT-C (Standard) Did you have a drink containing alcohol in the past year? Yes How often did you have a drink containing alcohol in the past year? Never (0 point) How many drinks did you have on a typical day when you were drinking in the past year? 1 or 2 drinks (0 point) How often did you have six or more drinks on one occasion in the past year? 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 Section Notes: Smoker; no sig alcohol Smoker; no sig alcohol Smoker; no sig alcohol Problems Problem Type SNOMED Code ICD Code Onset Dates Problem Status W/U Status Risk Notes Problem Rectal bleeding (93935999) Rectal bleeding (K62.5) Active confirmed Problem History of adenomatous polyp of colon (577246429) History of adenomatous polyp of colon (Z86.010) Active confirmed Problem Constipation (03695721) Constipation (K59.00) Active confirmed Problem Diarrhea (84877032) Diarrhea (R19.7) Active con firmed Problem Imaging of gastrointestinal tract abnormal (160828694) Abnormal findings on diagnostic imaging of other parts of digestive tract (R93.3) Active confirmed Problem Helicobacter pylori (77481961) Helicobacter pylori [H. pylori] as the cause of diseases classified elsewhere (B96.81) Active confirmed Problem Diverticular disease of colon (647150919) Diverticulosis of large intestine without perforation or abscess without bleeding (K57.30) Active confirmed Problem Abnormal weight loss (819167877) Abnormal weight loss (R63.4) Active confirmed Problem Duodenitis (60955448) Duodenitis (K29.80) Active confirmed Problem Hemorrhage of rectum and anus (312668081) Rectal bleed (K62.5) Active confirmed Problem Anemia (749024379) Anemia (D64.9) Active confir med Problem Iron deficiency anemia due to chronic blood loss (336892370) 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) Active confirmed Problem Peptic ulcer disease (91642640) Peptic ulcer disease (K27.9) Active confirmed Problem Chronic gastric ulcer (75638341) Chronic gastric ulcer (K25.7) Active confirmed Problem Chronic diarrhea (337747225) Chronic diarrhea (K52.9) Active confirmed Problem Gastric ulcer (575816333) Gastric ulcer (K25.9) Active confirmed Problem Duodenal ulcer disease (18259158) Duodenal ulcer disease (K26.9) Active confirmed Problem Weight decreased (410582116) Loss of weight (R63.4) Active confirmed Problem Gastroesophageal reflux disease with esophagitis (disorder) (567313821) Gastroesophageal reflux disease with esophagitis without hemorrhage (K21.00) Active confirmed Vital Signs Blood pressure diastolic 111 mm Hg 08/30/2024 Height 71 in 08/30/2024 Blood pressure systolic 111 mm Hg 08/30/2024 Weight 174 lbs 08/30/2024 BMI 24.27 kg/m2 08/30/2024 Procedures Procedure Date Ordered Date Performed Result Body Sit e UPPER GI ENDOSCOPY 07/24/2024 N/A COLONOSCOPY 07/24/2024 N/A Encounters Encounter Location Date Provider Diagnosis [facility] Outpatient [address] [place], [place] [id number] 08/23/2024 Waqas Diaz Rectal bleed K62.5 ; 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 ; Diverticulosis of large intestine without perforation or abscess without bleeding K57.30 ; Other hemorrhoids K64.8 ; Hiatal hernia K44.9 and Gastro-esophageal reflux disease without esophagitis K21.9 [facility] [address] [place] [phone] 08/30/2024 Waqas Diaz Rectal bleed K62.5 ; Iron deficiency anemia due to chronic blood loss D50.0 ; Abnormal weight loss R63.4 ; Gastric ulcer K25.9 and Constipation K59.00 [facility] [address] [place] [phone] 06/21/2024 Waqas Diaz Diarrhea R19.7 ; Rec keeley bleeding K62.5 and Folate deficiency E53.8 [facility] [address] [place] [phone] 07/04/2024 Waqas Diaz [facility] [address] [place] [phone] 07/24/2024 Waqas Diaz Diarrhea R19.7 ; Rec keeley bleeding K62.5 ; Anemia D64.9 and Peptic ulcer disease K27.9 [facility] [address] [place] [phone] 08/21/2024 Waqas Diaz [facility] [address] [place] [phone] 08/30/2024 Waqas Diaz [facility] [address] [place] [phone] 09/02/2024 Waqas Diaz [facility] [address] [place] [phone] 11/12/2024 Waqas Diaz [facility] [address] [place] [phone] 02/11/2025 Waqas Diaz Rectal bleeding K62. 5 [facility] [address] [place] [phone] 03/05/2025 Waqas Diaz Assessments Encounter Date Diagnosis [...] R19.7) 02/11/2025 Rectal bleeding (ICD-10 - K62.5) 08/30/2024 Abnormal weight loss (ICD-10 - R63.4) [...] progress. 07/24/2024 Anemia (ICD-10 - D64.9) 08/23/2024 Diverticulosis of large intestine without perforation or abscess without bleeding (ICD-10 - K57.30) 08/23/2024 Other hemorrhoids (ICD-10 - K64.8) 08/30/2024 Gastric ulcer (ICD-10 - K25.9) Continue the omeprazole 40mg. I will send over prescriptions to treat the H.pylori if the final report is positive. This will switch you to the 20mg omeprazole twice a day. After the two week treatmernt then stay on omeporazole 20mg group home for now. Overall, Heath currently appears quite [...] again for allowing me to participate in Haeth's care. I shall continue to keep you advised of his progress. 07/24/2024 Peptic ulcer disease (ICD-10 - K27.9) 06/21/2024 Folate deficiency (ICD-10 - E53.8) 08/30/2024 Constipation (ICD-10 - K59.00) Use Colace [...] to keep you advised of his progress. 08/23/2024 Hiatal hernia (ICD-10 - K44.9) 08/23/2024 Gastro-esophageal reflux disease without esophagitis (ICD-10 - K21.9) Plan Of Treatment Pending Test Test Name Order Date UPPER GI ENDOSCOPY 07/24/2024 COLONOSCOPY 07/24/2024 CHEM 7 PROFILE 07/24/2024 CHEM 7 PROFILE 02/11/2025 CHEM 7 PROFILE 11/30/2023 CHEM 7 PROFILE 12/20/2023 CHEM 7 PROFILE 06/21/2024 LIVER PROFILE 06/21/2024 LIVER PROFILE 11/30/2023 LIVER PROFILE 02/11/2025 IRON + IBC (FE) 02/11/2025 IRON + IBC (FE) 11/30/2023 IRON + IBC (FE) 08/30/2024 CRP 11/30/2023 CRP 06/21/2024 CRP 07/24/2024 CRP 02/11/2025 VITAMIN B12 AND FOLATE 11/30/2023 CBC w DIFF 11/30/2023 CBC w DIFF 08/30/2024 CBC w DIFF 06/21/2024 CBC w DIFF 07/24/2024 CBC w DIFF 02/11/2025 SED RATE (ESR) 02/11/2025 SED RATE (ESR) 07/24/2024 SED RATE (ESR) 06/21/2024 SED RATE (ESR) 11/30/2023 STOOL WBC 12/20/2023 CELIAC PANEL #10 11/30/2023 CT ABD & PELVIS WITH CONTRAST 12/20/2023 STOOL WBC 06/21/2024 C DIFFICILE RFLX PCR 06/21/2024 C DIFFICILE RFLX PCR 12/20/2023 Complete Blood Count Auto Diff 5 Ferritin 08/30/2024 Folate 06/21/2024 Trypsin 12/20/2023 H pylori Ag Stool 07/24/2024 Giardia Ag Stool EIA 12/20/2023 Pancreatic Elastase-1 12/20/2023 Fecal Fat Qualitative 12/20/2023 Calprotectin, Fecal 12/20/2023 Calprotectin, Fecal 06/21/2024 Calprotectin, Fecal 07/24/2024 Ova and Parasite 12/20/2023 GI PANEL 06/21/2024 GI PANEL 12/20/2023 Future Test Test Name Order Date COLONOSCOPY 11/30/2023 UPPER GI ENDOSCOPY 01/05/2024 Next Appt Details Provider Name:Waqas Diaz , 06/19/2025 03:40:00 PM, [address] [place] [address], [address], [place], [address], Insurance Providers Payer Name Payer Address Payer Phone Subscriber Number Group Number Insured Name Patient Relationship to Insured Coverage Start Date Coverage End Date [facility] [address] [place] [address] [id number] JOSE WINSLOW Self - patient is the insured Medical (General) History Medical History History ICD Code Mitral valve insufficiency-- scheduled for surgery [place] a [place] valve [place] [facility] [place]--has initially been seeing Dr. Doherty but was then referred [place] [facility] [place] HTN Denies DC,DM,CVA,Lung disease,renal dise ase Chronic diarrhea-colonoscopy as below--negative [...] 12/[address] scan at [facility] [place]ER--- this appears to be an incidental finding as he is asymptomatic in that regard-reviewed with patient at the 03/01/24 OV Surgical History Surgery Date(Month/Year)
--- OUTSIDE RECORDS SUMMARY | 2025-05-21 18:17 | XMS_ITS | Encounter Summary ---
Author Organization [facility] Address [address] [facility] [address] [place] [address] Phone Care Team Providers Care Fruit Canner Name Role Phone Faye Avelar MD Primary Care Provider Shagufta Bhakta MD, PhD Unavailable [phone] Waqas Diaz MD Unavailable [phone] Encounter Details Date Type Department Care Team ([facility] st Contact Info) Description 04/24/2024 Telephone VIRTUAL DEPARTMENT [address] [place] [phone] Natalie Acosta MD [address] [place] [id number] [email or web address] Social History Tobacco Use Types Packs/Day [...] st Contact Info) Description 04/03/2025 Procedure Pass [facility] [address] [facility], 5th Floor, [address] [place] [address] 04/03/2025 Procedure Pass [facility] [address] [facility], [address] [place] [address] 06/06/2025 8:30 AM EST Appointment [facility] 32 [facility], 5th Floor, [address] [place] [address] Shagufta Bhakta MD, PhD [address] [address] DIANA@[facility] 06/21/2025 8:00 AM EST Appointment [facility] [address] [facility], [address] [place] [address] Shagufta Bhakta MD, PhD [address] [address] DIANA@[facility] 07/04/2025 9:30 AM EST Office Visit [facility] Inter[facility] Cardiology Clinic at the [facility] [address] [facility], 5th Floor, [address] [place] [address] Shagufta Bhakta MD, PhD [address] [address] DIANA@[email or web address] documented as of this encounter Visit Diagnoses Not on filedocumented in this encounter Care Teams Fruit Canner Relationship Specialty Start Date End Date Faye Avelar MD [address] [facility] [place] [address] PCP - General Internal Medicine 09/19/23 Shagufta Bhakta MD, PhD 55 [facility] [address] [place] [address] [email or web address] [employer] Interventional Cardiology 10/11/23 Waqas Diaz MD [address] [place] [address] [place] [address] Gastroenterology 02/14/25 documented as of this encounter Additional Source Comments The information contained in this document represents components of the legal health record. It is not the complete legal health record.[facility]
--- OUTSIDE RECORDS SUMMARY | 2025-05-21 18:17 | XMS_ITS | Encounter Summary ---
Author Organization [facility] Address [address] [facility] [address] [place] [address] Phone Care Team Providers Care Clerical Car Checker Name Role Phone Faye Avelar MD Primary Care Provider [phone] Shagufta Bhakta MD, PhD Unavailable [phone] Waqas Diaz MD Unavailable [phone] Encounter Details Date Type Department Care Team (Late st Contact Info) Description 09/11/2024 Procedure Pass [facility] Cardiac Ultrasound [address] [place] [address] Social History Tobacco Use Types Packs/Day Years [...] st Contact Info) Description 04/03/2025 [facility] 32 [facility], 5th Floor, [address] [place] [address] 04/03/2025 Procedure Pass [facility] [address] [facility], [address] [place] [address] 06/06/2025 8:30 AM EST Appointment [facility] 32 [facility], 5th Floor, [address] [place] [address] Shagufta Bhakta MD, PhD [address] [address] DIANA@[email or web address] 06/21/2025 8:00 AM EST Appointment [facility] 52 [facility], [address] [place] [address] Shagufta Bhakta MD, PhD [address] [address] DIANA@[facility] 07/04/2025 9:30 AM EST Office Visit [facility] Interventional Cardiology Clinic at the [address], 5th Floor, [address] [place] [address] Shagufta Bhakta MD, PhD [address] [address] DIANA@[facility] documented as of this encounter Visit Diagnoses Not on filedocumented in this encounter Care Teams Clerical Car Checker Relationship Specialty Start Date End Date Faye Avelar MD [address] [facility] [place] [address] PCP - General Internal Medicine 09/19/23 Shagufta Bhakta MD, PhD [address] [address] [email or web address] [employer] Interventional Cardiology 10/11/23 Waqas Diaz MD [address] [place] [address] [address] [place] [address] Gastroenterology 02/14/25 documented as of this encounter Additional Source Comments The information contained in this document represents components of the legal health record. It is not the complete legal health record.[facility]
--- OUTSIDE RECORDS SUMMARY | 2025-05-21 18:17 | XMS_ITS | Encounter Summary ---
Author Organization [facility] Address [address] [facility] [address] [place] [address] Phone Care Team Providers Care Computer Forensics Investigator Name Role Phone Faye Avelar MD Primary Care Provider [phone] Shagufta Bhakta MD, PhD Unavailable [phone] Waqas Diaz MD Unavailable [phone] Encounter Details Date Type Department Care Team (Late st Contact Info) Description 02/19/2025 Procedure Pass [facility] Cardiac Ultrasound [address] [place] [address] Social History Tobacco Use Types Packs/Day Years [...] st Contact Info) Description 04/03/2025 [facility] 32 [facility], 5th Floor, [address] [place] [address] 04/03/2025 Procedure Pass [address], [address] [place] [address] 06/06/2025 8:30 AM EST [facility]ment [facility] [address] [place] [address], 5th Floor, [address] [place] [address] Shagufta Bhakta MD, PhD [address] [address] DIANA@[email or web address] 06/21/2025 8:00 AM EST Appointment [address], [address] [place] [address] Shagufta Bhakta MD, PhD [address] [address] DIANA@[email or web address] 07/04/2025 9:30 AM EST Office Visit [facility] Inter[facility]iology Clinic at the [facility] [address] [facility], 5th Floor, [address] [place] [address] Shagufta Bahkta MD, PhD [address] [address] DIANA@[email or web address] documented as of this encounter Visit Diagnoses Not on filedocumented in this encounter Care Teams Computer Forensics Investigator Relationship Specialty Start Date End Date Faye Avelar MD [address] [facility] [address] PCP - General Internal Medicine 09/19/23 Shagufta Bhakta MD, PhD [address] [place] [address] [address] [place] [address] DIANA@[email or web address] [employer] Interventional Cardiology 10/11/23 Waqas Diaz MD [address] [place] [address] [address] [place] [address] Gastroenterology 02/14/25 documented as of this encounter Additional Source Comments The information contained in this document represents components of the legal health record. It is not the complete legal health record.[facility]
--- OUTSIDE RECORDS SUMMARY | 2025-05-21 18:17 | XMS_ITS | Encounter Summary ---
Author Organization [facility] Address [address] [facility] [address] [place] [address] Phone Care Team Providers Care Setup Technician Name Role Phone Faye Avelar MD Primary Care Provider [phone] Shagufta Bhakta MD, PhD Unavailable [phone] Waqas Diaz MD Unavailable [phone] Encounter Details Date Type Department Care Team (Late st Contact Info) Description 02/19/2025 Procedure Pass [facility] PERIOPERATIVE DEPT [address] [place] [phone] Social History Tobacco Use Types Packs/Day Years [...] st Contact Info) Description 04/03/2025 Procedure Pass [facility] 32 [facility], 5th Floor, [address] [place] [address] 04/03/2025 Procedure Pass [address], [address] [place] [address] 06/06/2025 8:30 AM EST [facility]ment [facility] [address], 5th Floor, [address] [place] [address] Shagufta Bhakta MD, PhD [address] [address] DIANA@[email or web address] 06/21/2025 8:00 AM EST Appointment [address], [address] [place] [address] Shagufta Bhakta MD, PhD [address] [address] DIANA@[email or web address] 07/04/2025 9:30 AM EST Office Visit [facility] Interventional Cardiology Clinic at the [facility] 32 [facility], 5th Floor, [address] [place] [address] Shagufta Bhakta MD, PhD [address] [address] DIANA@[facility] documented as of this encounter Visit Diagnoses Not on filedocumented in this encounter Care Teams Setup Technician Relationship Specialty Start Date End Date Faye Avelar MD [address] [place] [address] PCP - General Internal Medicine 09/19/23 Shagufta Bhakta MD, PhD [address] [place] [address] [address] [place] [address] DIANA@[email or web address] [employer] Interventional Cardiology 10/11/23 Waqas Diaz MD [address] [place] [address] [place] [address] Gastroenterology 02/14/25 documented as of this encounter Additional Source Comments The information contained in this document represents components of the legal health record. It is not the complete legal health record.[facility]
--- OUTSIDE RECORDS SUMMARY | 2025-05-21 18:17 | XMS_ITS | Encounter Summary ---
Author Organization [facility] Address [address] [facility] [address] [place] [address] Phone Care Team Providers Care Shipping Track Supervisor Name Role Phone Faye Avelar MD Primary Care Provider Shagufta Bhakta MD, PhD Unavailable [phone] Waqas Diaz MD Unavailable [phone] Encounter Details Date Type Department Care Team (Late st Contact Info) Description 10/13/2023 Procedure Pass [facility], [place] [address] [facility], 2nd Floor, [address] [place] [address] Social History Tobacco Use Types Packs/Day Years [...] st Contact Info) Description 04/03/2025 Procedure Pass [facility] 32 [facility], 5th Floor, [address] [place] [address] 04/03/2025 Procedure Pass [facility] 52 [facility], [address] [place] [address] 06/06/2025 8:30 AM EST Appointment [address], 5th Floor, [address] [place] [address] Shagufta Bhakta MD, PhD [address] [address] DIANA@[email or web address] 06/21/2025 8:00 AM EST Appointment [address], [address] [place] [address] Shagufta Bhakta MD, PhD [address] [address] DIANA@[email or web address] 07/04/2025 9:30 AM EST Office Visit [facility] Interventional Cardiology Clinic at the [address], 5th Floor, [address] [place] [address] Shagufta Bhakta MD, PhD [address] [address] DIANA@[email or web address] documented as of this encounter Visit Diagnoses Not on filedocumented in this encounter Care Teams Shipping Track Supervisor Relationship Specialty Start Date End Date Faye Avelar MD [address] [facility] [place] [address] PCP - General Internal Medicine 09/19/23 Shagufta Bhakta MD, PhD 55 [facility] [address] [place] [address] [email or web address] [employer] Interventional Cardiology 10/11/23 Waqas Diaz MD [address] [place] [address] [place] [address] Gastroenterology 02/14/25 documented as of this encounter Additional Source Comments The information contained in this document represents components of the legal health record. It is not the complete legal health record.[facility]
--- OUTSIDE RECORDS SUMMARY | 2025-05-21 18:17 | XMS_ITS | Clinical Summary ---
Author Organization [facility] Address [address] [address] Phone Care Team Providers Care Right Of Way Worker Name Role Phone Faye Avelar MD Primary Care Provider [phone] Shagufta Bhakta MD, PhD Unavailable [phone] Waqas Diaz MD Unavailable [phone] Allergies No known active allergies Medications folic acid (FOLVITE) 1 MG tablet Take 1 tablet by mouth every morning. 4 Active omeprazole (PRILOSEC) 40 MG capsule Take 1 capsule by mouth daily. 4 Active acetaminophen (TYLENOL) 325 mg tablet Take 1-2 tablets (325-650 mg total) by mouth 3 (three) times a day. 5 Active apixaban (ELIQUIS) 5 mg tablet Take 1 tablet (5 mg total) by mouth 2 (two) times a day. 60 tablet 2 5 05/27/19 26 Active lidocaine 4 % Place 2 patches onto the skin daily. 5 Active ferrous sulfate 325 mg (65 mg [place] iron) tablet Take 325 mg by mouth daily with breakfast. Active aspirin 81 mg chewable tablet Take 1 tablet (81 mg total) by mouth daily. 90 tablet 3 5 Active metoprolol succinate (TOPROL-XL) 25 MG 24 hr tablet TAKE 1 TABLET (25 MG TOTAL) BY MOUTH DAILY. 90 tablet 1 5 08/20/19 26 Active metoprolol succinate (TOPROL-XL) 25 MG 24 hr tablet Take 1 tablet (25 mg total) by mouth daily. 30 tablet 2 5 05/21/20 25 Discontinued Active Problems Problem Noted Date Diagnosed [...] visit around 01/11. Per patient echo at [facility] showed severe MR. Of note, he was born with murmur. He plays tennis for 2-3 hours per week and pickle ball for 1 hour per week. P: echo, dental consult Resolved Problems Problem Noted Date Diagnosed Date Resolved Date Mitral valve insufficiency, unspecified etiology 02/19/2025 04/02/2025 Encounters Date Type Department Care Team Description 05/18/2025 Refill [facility] [address] [facility], 5th Floor, [address] [place] [address] Shagufta Bhakta MD, PhD Med Change Request 04/08/2025 Documentation [facility] [address] [facility], 6th Floor, [address] [place] [address] Cornelia Palacios RN 04/04/2025 3:13 PM EST - 04/04/2025 11:59 PM EST Hospital Encounter [facility] [address] [place] [address] Biju Wolfe MBBS Discharge Disposition: Home or Self Care 04/04/2025 3:12 PM EST Hospital Encounter [facility] [address] [place] [address] Biju Wolfe MBBS Discharge Disposition: Home or Self Care 04/04/2025 Orders Only [facility] [address] [facility], 6th Floor, [address] [place] [address] ProviderMed MD 04/04/2025 Telephone [facility] [address] [facility], 6th Floor, [address] [place] [address] Julia Constantino, ZACH 04/04/2025 Ancillary Orders [facility] [address] [place] [address] Biju Wolfe MBBS 04/04/2025 Ancillary Orders [facility] [address] [place] [address] Biju Wolfe MBBS 04/03/2025 1:30 PM EST Office Visit [facility] [address] [facility], 5th Floor, [address] [place] [address] Shagufta Bhakta MD, PhD S/P mitral valve repair (Primary Dx); Status post mitral valve repair; Paroxysmal atrial fibrillation 04/03/2025 11:30 AM EST Office Visit [facility] [address] [facility], 6th Floor, [address] [place] [address] Natalie Acosta MD Postop check (Primary Dx) 04/03/2025 10:25 AM EST - 04/03/2025 11:59 PM EST Hospital Encounter [facility] Imaging - Shelton Morelos [address] [facility], 2nd [place] [address] Gonzaol Parsons PA-C Discharge Disposition: Home or Self Care 03/22/2025 Telephone [facility] [address] [facility], 6th Floor, [address] [place] [address] Panchito Stark CNP 03/17/2025 Documentation [facility] [address] [facility], 5th Floor, [address] [place] [address] Arya Betancourt MD 03/13/2025 Telephone [facility] [address] [facility], 6th Floor, [address] [place] [address] Alaina Brizuela FNP 03/13/2025 Refill [facility] [address] [facility], 5th Floor, [address] [place] [address] Nidia Devries CNP Medication Refill 02/28/2025 Telephone [facility] [address] [facility], 6th Floor, [address] [place] [address] Panchito Stark CONTRACT MANAGER 02/19/2025 7:30 AM EDT - 02/19/2025 2:11 PM EDT Surgery [facility] PERIOPERATIVE DEPT [address] [place] [address] Natalie Acosta MD ROBOTIC REPAIR MITRAL VALVE ( tissue ) 02/19/2025 7:18 AM EDT Anesthesia Event [facility] PERIOPERATIVE DEPT [address] [place] [address] Colin Layne MBBS Hayes, Colleen Ann, DO 02/19/2025 6:40 AM EDT Ancillary Procedure [facility] Imaging Bedside Ultrasound VRT [address] [place] [address] Colin Layne MBBS Melnitchouk, Serguei, MD 02/19/2025 5:33 AM EDT - 02/26/2025 11:18 AM EDT Hospital Encounter [facility] [address] [place] [address] Natalie Acosta MD Discharge Disposition: Home or Self Care 02/19/2025 Procedure Pass [facility] [address] [place] [address] 02/19/2025 Procedure Pass [facility] PERIOPERATIVE DEPT [address] [place] [address] from Last 3 Months Immunizations Immunization Administration [...] st Contact Info) Description 04/03/2025 Procedure Pass [facility] [address] [facility], 5th Floor, [address] [place] [address] 04/03/2025 Procedure Pass [facility] Cardiology [address] [facility] [facility], [address] [place] [address] 06/06/2025 8:30 AM EST Appointment [facility] Holter [facility] [address] [facility], 5th Floor, [address] [place] [address] Shagufta Bhakta MD, PhD [address] [facility] [address] [place] [address] [email or web address] 06/21/2025 8:00 AM EST Appointment [facility] Cardiology [address], [address] [place] [address] Shagufta Bhakta MD, PhD [address] [place] [address] [email or web address] 07/04/2025 9:30 AM EST Office Visit [facility] [address] [facility], 5th Floor, [address] [place] [address] Shagufta Bhakta MD, PhD [address] [place] [address] [email or web address] Health Maintenance Due Date Last Done [...] this topic Medical Devices Implanted Type Area Cnmt Device Identifier Shelf Expiration Date Model / Serial / Lot Ring Annuloplasty 32mm Mitral Jazmín Guerra Eligoy Band Silicone Rubber Polyester Cover - [id number] Implanted:Qty: 1 on 02/19/2025 by Natalie Acosta MD at [facility] Left: Heart [employer] 10/31/2029 [id number] / [id number] / Procedures Procedure Name Priority Date/Time Associated [...] PROTAMINE TITRATION Routine 02/19/2025 8:44 AM EDT AL ECHO HEART TRANSESOPH PROBE PLACEMT PERF Routine 02/19/2025 8:29 AM EDT ANES SINGLE LUMEN PA LINE - PA LINE Routine 02/19/2025 8:28 AM EDT ANES VENOUS SHEATH - PA LINE Routine 02/19/2025 8:28 AM EDT AL INSERT/PLACE FLOW DIRECT CATH PERF Routine 02/19/2025 8:28 AM EDT AIRWAY PLACEMENT Routine 02/19/2025 7:47 AM EDT POCT HEPARIN DOSE RESPONSE Routine 02/19/2025 7:45 AM EDT BASIC METABOLIC PANEL (BMP) STAT 02/19/2025 7:45 AM EDT LACTATE (BLOOD GAS) STAT 02/19/2025 7 :45 AM EDT ARTERIAL BLOOD GAS PLUS STAT 02/19/2025 7:45 AM EDT AL MITRALPLASTY W CP BYPASS 02/19/2025 7:33 AM EDT Mitral valve prolapse Special Needs CPT Code for : Minimally Invasive MV Repair 88224 Robotic AL INSERT CATH ART PERCUT SHORTTERM PERF Routine 02/19/2025 7:26 AM EDT ANESTHESIA POINT OF CARE IMAGE CAPTURE Routine 02/19/2025 6:36 AM EDT from Last 3 Months Results * Outside CT Imaging Report Only (04/04/2025 3:51 PM EST) Historical Provider IMG CT Final Res ult * CT Chest Outside (No Interpretation) (04/04/2025 3:13 PM EST) Narrative [facility] IMG INTERFACES - 04/04/2025 3:13 PM EST This study is for PACS storage only and not for interpretation. Biju METZ IMG OUTSIDE IMAGING W/OUT INTERPRETATION Final Result [facility] IMG INTERFACES * CT Chest Outside (No Interpretation) (04/04/2025 3:12 PM EST) Narrative [facility] IMG INTERFACES - 04/04/2025 3:12 PM EST This study is for PACS storage only and not for interpretation. us Biju METZ IMG OUTSIDE IMAGING W/OUT INTERPRETATION Final Result Performing Organization Address [facility] Co de Phone Number [facility] IMG INTERFACES * ECG 12-LEAD (04/03/2025 12:25 PM EST) Only the most recent of9 resultswithin the time period is included. Systolic Blood Pressure 132 mmHg [facility] Diastolic Blood Pressure 74 mmHg [facility] Ventricular Rate EKG/MIN 73 BPM [facility] Atrial Rate 73 BPM [facility] AL Interval 156 ms [facility] QRS Duration 82 ms [facility] QT Interval 442 ms [facility] QTC Interval 486 ms [facility] P [place] 73 degrees [facility] R Wave [place] 30 degrees [facility] T Wave [place] 54 degrees [facility] 04/03/2025 12:2 5 PM [...] MD, PhD ECG ORDERABLES Final Resu lt Performing Organization Address City/[facility]/ZIP Co de Phone Number [facility] * XR CHEST PA AND LATERAL [...] clinician's provided indication for this examination in [facility]: S/P Cardiac Surgery COMPARISON: XR CHEST [...] clinician's provided indication for this examination in [facility]:S/P Cardiac Surgery COMPARISON: XR CHEST PA [...] included. WBC 5.75 4.00 - 11.00 K/uL [facility] RBC 3.39(L) 4.50 - 5.90 M/uL [facility] HGB 9.2(L) 13.5 - 17.5 g/dL [facility] HCT 28.8(L) 41.0 - 53.0 % [facility] PLT 236 150 - 450 K/uL [facility] MCV 85.0 80.0 - 100.0 fL [facility] MCH 27.1 27.0 - 31.0 pg [facility] MCHC 31.9(L) 32.0 - 36.0 g/dL [facility] RDW 20.9(H) 11.5 - 14.5 % [facility] MPV 9.3 8.4 - 12.0 fL [facility] NRBC 0.00 0.00 /100 WBCs [facility] ABSOLUTE NRBC 0.00 0.00 K/uL [facility] Blood 02/26/2025 6:04 AM EDT 02/26/2025 6:57 AM EDT us Marlyn Garrido CONTRACT MANAGER, DNP LAB BLOOD BKR ORDERABLES Fi nal Result Performing Organization Address City/[facility]/ZIP Co de Phone Number [address] [address] * Type and Screen (ABO,Rh,Antibody Screen) (02/26/2025 6:04 AM EDT) Only the most recent of2 resultswithin the time period is included. Expiration Date of Sample 03/01/2025 11:59 PM [facility] Antibody Screen Negative 02/26/2025 7:27 AM EDT [facility] Resulting Agency [facility] ABO O 02/26/2025 7:11 AM EDT [facility] Rh Positive 02/26/2025 7:11 AM EDT [facility] Blood 02/26/2025 6:04 AM EDT 02/26/2025 6:23 AM EDT us Pita Barney PA-C LAB BLOOD BANK TEST ORDER OZZY Final Result Performing Organization Address City/[facility]/ZIP Co de Phone Number [address] [address] * Magnesium (02/26/2025 6:04 AM EDT) Only the most recent of14 resultswithin the time period is included. MAGNESIUM 2.1 1.7 - 2.4 mg/dL [facility] Blood 02/26/2025 6:04 AM EDT 02/26/2025 6:57 AM EDT Marlyn Garrido CNP, ELIA LAB BLOOD BKR ORDERABLES Fi nal Result Performing Organization Address [facility] Co de Phone Number [address] [address] * (ABNORMAL) Basic metabolic panel (02/26/2025 6:04 AM EDT) Only the most recent of17 resultswithin the time period is included. SODIUM 131(L) 135 - 145 mmol/L [facility] POTASSIUM 4.5 3.4 - 5.0 mmol/L [facility] CHLORIDE 94(L) 98 - 108 mmol/L [facility] CO2 30 23 - 32 mmol/L [facility] BUN 16 8 - 25 mg/dL [facility] CREATININE 1.25 0.60 - 1.30 mg/dL [facility] GLUCOSE 105 70 - 110 mg/dL [facility] CALCIUM 9.1 8.5 - 10.5 mg/dL [facility] EGFR 70 >59 mL/min/1. 73m2 [facility] Comment:Estimated glomerular filtration rate calculated using the CKD-EPI refit equation. ANION GAP 7 3 - 17 mmol/L [facility] Blood 02/26/2025 6:04 AM EDT 02/26/2025 6:57 AM EDT Marlyn Garrido CNP, ELIA LAB BLOOD BKR ORDERABLES Fi nal Result Performing Organization Address [facility] Co de Phone Number [address] [address] * XR CHEST PA AND LATERAL 2 [...] clinician's provided indication for this examination in [facility]: Post-Op; s/p robotic mitral valve repair COMPARISON: [...] clinician's provided indication for this examination in [facility]:Post-Op; s/p robotic mitral valve repair COMPARISON: XR [...] Epic:S/P Cardiac Surgery COMPARISON: XR CHEST PORTABLE 2024- [...] clinician's provided indication for this examination in [facility]: Chest Tube Removal COMPARISON: XR CHEST [...] clinician's provided indication for this examination in [facility]:Chest Tube Removal COMPARISON: XR CHEST PORTABLE [...] originallycreated by Adeline Fernández. us Lavinia You LEAN SENSEI IMG XR CHEST Final Resu lt * Lactate (02/22/2025 7:37 AM EDT) LACTIC ACID (MMOL/L) 0.8 0.5 - 2.0 mmol/L [facility] Blood 02/22/2025 7:37 AM EDT 02/22/2025 7:45 AM EDT Graciela Peoples PA-C LAB BLOOD BKR ORDERABLES Final Result [address] [address] * XR Chest Portable (02/22/2025 5:17 AM [...] clinician's provided indication for this examination in [facility]: Post-Op COMPARISON: XR CHEST PORTABLE ; [...] Bones/Soft Tissues: Unchanged in appearance. Procedure Note Fbaiola Morrison MD - 02/22/2025 XR CHEST PORTABLE Referring clinician's provided indication for this examination in [facility]:Post-Op COMPARISON: XR CHEST PORTABLE ; CT [...] originallycreated by Whitley Jaramillo. us Adolfo Whyte [employer] IMG XR CHEST Final Result * (ABNORMAL) LFTs (hepatic panel) (02/22/2025 1:43 AM EDT) Only the most recent of4 resultswithin the time period is included. ALBUMIN 3.2(L) 3.3 - 5.0 g/dL [facility] TOTAL BILIRUBIN 0.3 0.0 - 1.0 mg/dL [facility] DIRECT BILIRUBIN 0.1 0.0 - 0.3 mg/dL [facility] ALKALINE PHOSPHATASE 72 45 - 115 U/L [facility] AST 34 10 - 40 U/L [facility] ALT 32 10 - 55 U/L [facility] TOTAL PROTEIN 6.2 6.0 - 8.3 g/dL [facility] GLOBULIN 3.0 1.9 - 4.1 g/dL [facility] Blood 02/22/2025 1:43 AM EDT 02/22/2025 1:56 AM EDT Graciela Peoples PA-C LAB BLOOD BKR ORDERABLES Final Result Performing Organization Address [facility] Co de Phone Number [address] [address] * PTT (02/22/2025 1:43 AM EDT) Only the most recent of5 resultswithin the time period is included. APTT 29.2 24.0 - 37.5 sec [facility] Comment:Check MAR for the ta rget range that is ordered for your patient. Blood 02/22/2025 1:43 AM EDT 02/22/2025 1:56 AM EDT Graciela Peoples PA-C LAB BLOOD BKR ORDERABLES Final Result Performing Organization Address City/[facility] Co de Phone Number [address] [address] * PT-INR (02/22/2025 1:43 AM EDT) Only the most recent of5 resultswithin the time period is included. PT 11.3 10.0 - 13.0 sec [facility] INR 1.0 0.9 - 1.1 [facility] Blood 02/22/2025 1:43 AM EDT 02/22/2025 1:56 AM EDT us Graciela Minor Shelton LANDERS-C LAB BLOOD BKR ORDERABLES Final Result Performing Organization Address City/[facility] Co de Phone Number [address] [address] * (ABNORMAL) Phosphorus (02/22/2025 1:43 AM EDT) Only the most recent of8 resultswithin the time period is included. PHOSPHORUS 2.3(L) 2.6 - 4.5 mg/dL [facility] Blood 02/22/2025 1:43 AM EDT 02/22/2025 1:56 AM EDT Graciela Minor Shelton LANDERS-C LAB BLOOD BKR ORDERABLES Final Result Performing Organization Address [facility] de Phone Number [address] [address] * Creat. Comment (02/21/2025 9:42 AM EDT) Only the most recent of5 resultswithin the time period is included. Creat Comment Increasing Creatinine Value on your Patient: The calculated GFR may thus overestimate the true GFR and should not be used to guide medication dosing. Negative [facility] 02/21/2025 9:42 AM EDT 02/21/2025 9:47 AM EDT Graciela Minor Shelton LANDERS-C LAB BLOOD ORDERABLES Jeanine l Result Performing Organization Address City/[facility] Co de Phone Number [address] [address] * Prepare RBC (02/21/2025 12:41 AM EDT) Only the most recent of2 resultswithin the time period is included. Product Code [id number] 02/21/2025 12:41 AM EDT [facility] Unit Number [id number] 02/22/20 12:41 AM EDT [facility] Crossmatch Interpretation Compatible 02/18/2025 12:03 PM EDT [facility] Product Status Issued, Final 025 12:41 AM EDT [facility] ABO/Rh of Unit OPOS 02/21/2025 12:41 AM EDT [facility] Expiration Date/Time [id number] 02/21/2025 12:41 AM EDT [facility] Unit Barcode 5100 02/21/2025 12:41 AM EDT [facility] Product Code [id number] 02/21/2025 12:41 AM EDT [facility] Unit Number [id number] 02/22/20 12:41 AM EDT [facility] Crossmatch Interpretation Compatible 02/18/2025 12:03 PM EDT [facility] Product Status Issued, Final 12:41 AM EDT [facility] ABO/Rh of Unit OPOS 02/21/2025 12:41 AM EDT [facility] Expiration Date/Time [id number] 02/21/2025 12:41 AM EDT [facility] Unit Barcode 5100 02/21/2025 12:41 AM EDT [facility] 02/05/2025 3:3 3 PM EDT Blood Bank BLOOD BANK PRODUCT ORDERABLES Fi nal Result Performing Organization Address City/State/[facility] Co de Phone Number [address] [address] * XR Chest Portable (02/20/2025 10:18 PM [...] post robotic mitral valve repair. Adolfo Whyte NP IMG XR CHEST Final Result * (ABNORMAL) Arterial blood gas PLUS (02/20/2025 8:30 PM EDT) Only the most recent of10 resultswithin the time period is included. FIO2 2L NC FIO2/L min [facility] PH 7.37 7.35 - 7.45 [facility] PCO2 41 35 - 42 mm[Hg] [facility] PO2 118(H) 80 - 100 mm[Hg] [facility] Base Excess, unspecified NEG 0.0 - 3.0 mmol/L [facility] Comment:1.8NEG HCO3, unspecified 23(L) 24 - 30 mmol/L [facility] SODIUM 131(L) 135 - 145 mmol/L [facility] POTASSIUM 4.3 3.5 - 5.0 mmol/L [facility] IONIZED CALCIUM 1.11(L) 1.14 - 1.30 mmol/L [facility] Glucose, whole bld 139(H) 70 - 110 mg/dL [facility] HGB (BG) 9.7(L) 13.5 - 17.5 g/dl [facility] O2 Sat (SO2, arterial) 98.7 94.0 - 99.0 % [facility] Blood 02/20/2025 8:30 PM EDT 02/20/2025 8:38 PM EDT Graciela LANDERS-C LAB BLOOD ORDERABLES Jeanine l Result Performing Organization Address City/[facility] Co de Phone Number [address] [address] * Lactate (blood gas) (02/20/2025 8:30 PM EDT) Only the most recent of19 resultswithin the time period is included. Lactate, blood 1.6 0.5 - 2.0 mmol/L [facility] Blood 02/20/2025 8:30 PM EDT 02/20/2025 8:38 PM EDT Graciela Peoples PA-C LAB BLOOD BKR ORDERABLES Final Result Performing Organization Address [facility] Co de Phone Number [address] [address] * AMY COMP PROBE PLACED BY ANES [...] well. There were no probe complications noted. Crown Pouncer Attestation: I have reviewed the images and [...] mixed bld) 58.6(L) 65.0 - 75.0 % [facility] Blood 02/20/2025 3:59 AM EDT 02/20/2025 4:09 AM EDT us Graciela Peoples PA-C LAB BLOOD BKR ORDERABLES Final Result Performing Organization Address City/[facility]/ZIP Co de Phone Number [address] [address] * (ABNORMAL) POCT Glucose (02/20/2025 3:17 AM EDT) Only the most recent of2 resultswithin the time period is included. Glucose, POCT 163(H) 70 - 110 mg/dL [facility] 02/20/2025 3:17 AM EDT 02/20/2025 3:19 AM EDT us Natalie Acosta MD POINT OF CARE TEST ORDERA BLES Final Result Performing Organization Address City/[facility] Co de Phone Number [address] [address] * XR Chest Portable (02/20/2025 2:47 AM [...] included. LIPASE 83(H) 13 - 60 U/L [facility] Blood 02/20/2025 1:33 AM EDT 02/20/2025 1:39 AM EDT Graciela Peoples PA-C LAB BLOOD BKR ORDERABLES Final Result [facility] [address] [place] [address] * XR Chest Portable (02/19/2025 2:55 PM [...] clinician's provided indication for this examination in [facility]: Central Line; s/p cardiac surgery COMPARISON: XR [...] clinician's provided indication for this examination in [facility]:Central Line; s/p cardiac surgery COMPARISON: XR CHEST [...] thickening, and/or small right pleural effusion. Graciela Peoples PA-C IMG XR CHEST Final Res ult * MRSA Nasal Screen (02/19/2025 2:40 PM EDT) Special Requests No Special Requests 02/19/2025 2:38 PM EDT [facility] MRSA Nasal Culture NEGATIVE FOR MRSA 02/20/2025 1:35 PM EDT [facility] Other (Nasal) 02/19/2025 2:4 0 PM EDT 02/19/2025 5:08 PM EDT Graciela RECINOSC LAB MICROBIOLOGY CULTURE ORDERABLES Final Result Performing Organization Address City/[facility]/ZIP Co de Phone Number [address] [address] * Vancomycin Resistant Enterococci (VRE), Rectal Screen (02/19/2025 2:40 PM EDT) Special Requests No Special Requests 02/19/2025 2:38 PM EDT [facility] VRE Rectal Culture NEGATIVE FOR VRE 02/20/2025 3:16 PM EDT [facility] Stool (Rectal) 02/19/2025 2: 40 PM EDT 02/19/2025 5:07 PM EDT Graciela LANDERS-C LAB MICROBIOLOGY CULTURE ORDERABLES Final Result [address] [address] * (ABNORMAL) Fibrinogen (02/19/2025 1:51 PM EDT) FIBRINOGEN 166(L) 200 - 400 mg/dL [facility] Blood 02/19/2025 1:51 PM EDT 02/19/2025 1:57 PM EDT Colin METZ LAB BLOOD BKR ORDERABLES Final Result [address] [address] * POCT ACT from cardiac OR (02/19/2025 1:48 PM EDT) Only the most recent of11 resultswithin the time period is included. ACT FROM CARDIAC OR 106 90 - 130 sec [facility] 02/19/2025 1:48 PM EDT 02/19/2025 1:47 PM EDT Natalie Acosta MD LAB POCT ENTER/EDIT ORDER OZZY Final Result Performing Organization Address [facility] Co de Phone Number [address] [address] * POCT Heparin Protamine Titration (02/19/2025 1:48 PM EDT) Only the most recent of11 resultswithin the time period is included. Heparin Protamine Titration 0.0 u/ml [facility] Misc Test Ref Range 0.0-1.2 u/ml [facility] Comment (Coag) Red [facility] 02/19/2025 1:48 PM EDT 02/19/2025 1:47 PM EDT Natalie Acosta MD POINT OF CARE TEST ORDERA BLES Final Result Performing Organization Address [facility]/ZIP Co de Phone Number [address] [address] * (ABNORMAL) PUMP BLOOD GAS PLUS (02/19/2025 1:03 PM EDT) Only the most recent of9 resultswithin the time period is included. FIO2/FLOW CPB FIO2/L min [facility] TEMP. 37.0 deg C [facility] PH(UNCORRECTED) 7.30 [facility] PH 7.30(L) 7.32 - 7.45 [facility] PCO2(UNCORRECTE D) 46 mm[Hg] [facility] PCO2 46 35 - 50 mm[Hg] [facility] PO2(UNCORRECTED ) 260 mm[Hg] [facility] PO2 260(H) 40 - 90 mm[Hg] [facility] Base Excess, unspecified NEG 0.0 - 3.0 mmol/L [facility] Comment:4.2NEG HCO3, unspecified 22(L) 24 - 30 mmol/L [facility] SODIUM 134(L) 135 - 145 mmol/L [facility] POTASSIUM 4.8 3.5 - 5.0 mmol/L [facility] HGB (BG) 7.8(L) 13.5 - 17.5 g/dl [facility] IONIZED CALCIUM 1.26 1.14 - 1.30 mmol/L [facility] Glucose, whole bld 161(H) 70 - 110 mg/dL [facility] SO2, unspecified 99.8 94.0 - 99.9 % [facility] Comment: SO2 Reference Range: Arterial: 94.0-99.9 Venous: 60.0-85.0 Blood 02/19/2025 1:03 PM EDT 02/19/2025 1:08 PM EDT us Colin METZ LAB BLOOD [place] [address] * RBCs (02/19/2025 12:52 PM EDT) Only the most recent of2 resultswithin the time period is included. us Colin METZ NURSING TREATMENT ORDERABLES - ASSIGN Final Result * Anatomic Pathology (Non-MGB) (02/19/2025 10:09 AM EDT) Report [address] [address] Surgical Pathology Report Patient Name: JOSE WINSLOW : 1975 (Age: 50) Sex: M Location: [facility] B0 Institution: [facility] Date of Operation: 02/19/2025 Date of Reported: [...] thickness. No calcifications or vegetations are identified. Vessel Builder sections are wrapped and are submitted in A1. Grossed by: Angela Spangler [facility] Clinical History Mitral valve prolapse [facility] Final Diagnosis A. P2 CHORD AND LEAFLET: Myxomatous degeneration. [facility] Gross Description Received fresh labeled Jose Winslow , and P2 chord and leaflet is a 2.8 x 1.7 x 0.5 cm aggregate of white rubbery tissue fragments admixed with fragments of chordae tendonae, ranging from 0.1-0.2 cm in thickness. No calcifications or vegetations are identified. Vessel Builder sections are wrapped and are submitted in A1. [facility] Conversion Type (Heart Valve, [place] Mitral) 02/19/2025 10:09 AM EDT 02/19/2025 2:15 PM EDT us Natalie Acosta MD LAB PATHOLOGY ORDERABLES Edited Result - Final [facility] [address] [place] [address] * (ABNORMAL) VENOUS BLOOD GAS PLUS (02/19/2025 8:55 AM EDT) FIO2 CPB FIO2/L min [facility] PH 7.34 7.30 - 7.40 [facility] PCO2 50 38 - 50 mm[Hg] [facility] PO2 51(H) 35 - 50 mm[Hg] [facility] Base Excess, unspecified 0.1 0.0 - 3.0 mmol/L [facility] HCO3, unspecified 26 24 - 30 mmol/L [facility] SODIUM 136 135 - 145 mmol/L [facility] POTASSIUM 4.1 3.5 - 5.0 mmol/L [facility] IONIZED CALCIUM 0.88(L) 1.14 - 1.30 mmol/L [facility] Glucose, whole bld 137(H) 70 - 110 mg/dL [facility] HGB (BG) 7.3(L) 13.5 - 17.5 g/dl [facility] SO2-VENOUS (SO2, venous) 78.8 60.0 - 85.0 % [facility] Blood 02/19/2025 8:55 AM EDT 02/19/2025 9:01 AM EDT Colin METZ LAB BLOOD ORDERABLES Final Res ult [address] [address] * AL ECHO HEART TRANSESOPH PROBE PLACEMT PERF (02/19/2025 8:29 AM EDT) Narrative Maria De Jesus Aparicio DO - 02/19/2025 8:29 AM EDT Maria De Jesus Aparicio DO 02/19/2025 8:30 AM Transesophageal Echocardiogram Procedure Note: Performed by: anesthesiologist Anesthesiologist: Colin Layne MBBS [place] Protocol performed: consent obtained, patient identified with 2 identifiers, correct procedure verified, correct site and laterality confirmed, verified equipment, coagulation status reviewed and implant history reviewed. Placement notes: probe advanced in esophagus atraumatic us Colin METZ AL ANESTHESIA Final Result * AL INSERT/PLACE FLOW DIRECT CATH PERF, ANES VENOUS SHEATH - PA LINE, ANES SINGLE LUMEN PA LINE - PALINE (02/19/2025 8:28 AM EDT) Narrative Maria De Jesus Aparicio DO - 02/19/2025 8:28 AM EDT Maria De Jesus Aparicio DO 02/19/2025 8:29 AM Pulmonary Artery Line Placement Procedure Note: Start time: 02/19/2025 8:03 AM Anesthesiologist: Colin Layne MBBS Fellow/Resident/PEACH GROWER: Aparicio, Maria De Jesus Lamar, DO Performed: fellow/resident/PEACH GROWER [place] Protocol performed: consent obtained, patient identified with [...] 30 seconds? yes personal protection worn? yes district administrative assistant followed standard precautions? yes sterile technique [...] free fluid flow Complications?: No Colin METZ AL ANESTHESIA Final Result * ANES ETT DOUBLE LUMEN - AIRWAY LDA (02/19/2025 7:47 AM EDT) Narrative Maria De Jesus Aparicio DO - 02/19/2025 7:47 AM EDT Maria De Jesus Aparicio DO 02/19/2025 8:24 AM Airway Placement Procedure Note: Patient was not difficult to intubate. Procedure performed by: fellow/resident/PEACH GROWER Anesthesiologist: Colin Layne MBBS Fellow/Resident/PEACH GROWER: Maria De Jesus Aparicio DO Airway procedure [...] no Complications observed? no us Colin METZ AL ANESTHESIA Final Result * POCT heparin dose response (02/19/2025 7:45 AM EDT) ACT FROM CARDIAC OR 127 90 - 130 sec [facility] Projected heparin concentration 3.0 u/ml [facility] Heparin dose response 109 50 - 120 sec [facility] 02/19/2025 7:45 AM EDT 02/19/2025 7:51 AM EDT us Natalie Acosta MD POINT OF CARE TEST ORDERA BLES Final Result Performing Organization Address City/State/[facility] Co de Phone Number [address] [address] * AL INSERT CATH ART PERCUT SHORTTERM PERF (02/19/2025 7:26 AM EDT) Narrative Maria De Jesus Aparicio DO - 02/19/2025 7:26 AM EDT Maria De Jesus Aparicio DO 02/19/2025 7:26 AM Arterial Line Placement Procedure Note: Location: pre-op Procedure performed by: fellow/resident/PEACH GROWER Anesthesiologist: Colin Layne MBBS Fellow/Resident/PEACH GROWER: Maria De Jesus Aparicio DO Indication(s): hemodynamic monitoring, arterial blood gas and frequent labs [place] Protocol performed: consent obtained, patient identified with [...] complications Transducer type: regular us Colin METZ AL ANESTHESIA Final Result * ANESTHESIA POINT OF CARE IMAGE CAPTURE (02/19/2025 6:36 AM EDT) Anatomical Region Laterality Modality Ultrasound Narrative 02/19/2025 6:36 AM EDT Maria De Jesus Aparicio DO 02/19/2025 6:36 AM Anesthesia Point of Care Image Capture Performed by: Maria De Jesus Aparicio DO Authorized by: Colin Layne MBBS Accession Number: [id number] Colin METZ IM POINT OF CARE EXAMS Final Result from Last 3 Months Insurance [facility] OUT [facility] PPO [facility] PPO BLUE CROSS OUT OF STATE PPO [facility] PPO Advance Directives For more information, please contact: [phone] (9AM - 5PM [facility], Tuesday-Tuesday) Documents on File Type Date Recorded Patient Vessel Builder Expl anation Healthcare Proxy 02/06/2025 9:14 AM * Full Code (Latest Code Status on File) Date Activated Date Inactivated Comments 02/19/2025 2:37 PM Question Answer Comments Code Status Confirmed With: Patient Code Discussion Comments: Ofelia-op team discussed Care Teams Right Of Way Worker Relationship Specialty Start Date End Date Faye Avelar MD [address] [facility] [place] [address] PCP - General Internal Medicine 09/19/23 Shagufta Bhakta MD, PhD [address] [place] [address] [address] [place] [address] DIANA@[email or web address] Crown Pouncer Interventional Cardiology 10/11/23 Waqas Diaz MD [address] [place] [address] [address] [place] [address] Gastroenterology 02/14/25 Additional Source Comments The information contained in this document represents components of the legal health record. It is not the complete legal health record.[facility]
--- OUTSIDE RECORDS SUMMARY | 2025-05-21 18:17 | XMS_ITS | Encounter Summary ---
Author Organization [facility] Address [address] [facility] [address] [place] [address] Phone Care Team Providers Care Tobacco Prizer Name Role Phone Faye Avelar MD Primary Care Provider Shagufta Bhakta MD, PhD Unavailable [phone] Waqas Diaz MD Unavailable [phone] Encounter Details Date Type Department Care Team (Late st Contact Info) Description 10/02/2024 Procedure Pass [facility] PERIOPERATIVE DEPT [address] [place] [phone] Social History Tobacco Use Types Packs/Day Years [...] st Contact Info) Description 04/03/2025 [facility] 32 [facility], 5th Floor, [address] [place] [address] 04/03/2025 Procedure Pass [facility] 52 [facility], [address] [place] [address] 06/06/2025 8:30 AM EST [facility]ment [facility] [address], 5th Floor, [address] [place] [address] Shagufta Bhakta MD, PhD [address] [address] DIANA@[email or web address] 06/21/2025 8:00 AM EST Appointment [address], [address] [place] [address] Shagufta Bhakta MD, PhD [address] [address] DIANA@[facility] 07/04/2025 9:30 AM EST Office Visit [facility] 32 [facility], 5th Floor, [address] [place] [address] Shagufta Bhakta MD, PhD [address] [address] DIANA@[facility] documented as of this encounter Visit Diagnoses Not on filedocumented in this encounter Care Teams Tobacco Prizer Relationship Specialty Start Date End Date Faye Avelar MD [address] [facility] [place] [address] PCP - General Internal Medicine 09/19/23 Shagufta Bhakta MD, PhD 55 [facility] [address] [place] [address] DIANA@[email or web address] Physician Asst Interventional Cardiology 10/11/23 Waqas Diaz MD [address] [place] [address] Drive [address] [place] [address] Gastroenterology 02/14/25 documented as of this encounter Additional Source Comments The information contained in this document represents components of the legal health record. It is not the complete legal health record.[facility]
--- OUTSIDE RECORDS SUMMARY | 2025-05-21 18:18 | XMS_ITS | Encounter Summary ---
Author Organization [facility] Address [address] [facility] [address] [place] [address] Phone Care Team Providers Care Commercial Housekeeper Name Role Phone Faye Avelar MD Primary Care Provider [phone] Shagufta Bhakta MD, PhD Unavailable [phone] Waqas Diaz MD Unavailable [phone] Reason for Visit * Reason Comments Med Change Request Encounter Details Date Type Department Care Team (Late st Contact Info) Description 05/18/2025 Refill [facility] Inter[facility] Cardiology Clinic at the [facility] 32 [facility], 5th Floor, [address] [place] [address] Shagufta Bhakta MD, PhD 55 [facility] [address] [place] [address] [email or web address] Med Change Request Social History Tobacco Use Types Packs/Day Years [...] as of this encounter Progress Notes * Carlota Marsh RN - 05/20/2025 8:57 AM EST Last OV: 04/03/25 Next OV: not scheduled Refill metoprolol 25 mg documented in this encounter Plan of Treatment Upcoming Encounters Date Type Department Care Team (Late st Contact Info) Description 04/03/2025 Procedure Pass [facility] Holter Lab 32 [facility], 5th Floor, [address] [place] [address] 04/03/2025 Procedure Pass [facility] Cardiology 52 [facility], [address] [place] [address] 06/06/2025 8:30 AM EST Appointment [facility] Holter Lab [address] [place] [address], 5th Floor, [address] [place] [address] Shagufta Bhakta MD, PhD 55 [facility] 800 [place] [address] [email or web address]. [facility] 06/21/2025 8:00 AM EST Appointment [facility] [address] [facility], [address] [place] [address] Shagufta Bhakta MD, PhD 55 [facility] [address] [place] [address] DIANA@[facility] 07/04/2025 9:30 AM EST Office Visit [facility] Interventional Cardiology Clinic at the [facility] 32 [facility], 5th Floor, [address] [place] [address] Shagufta Bhakta MD, PhD 55 [facility] [address] [place] [address] DIANA@[facility] documented as of this encounter Visit Diagnoses Not on filedocumented in this encounter Care Teams Commercial Housekeeper Relationship Specialty Start Date End Date Faye Avelar MD [address] [facility] [place] [address] PCP - General Internal Medicine 09/19/23 Shagufta Bhakta MD, PhD 55 [facility] [address] [place] [address] DIANA@[email or web address] Lens Silverer Interventional Cardiology 10/11/23 Waqas Diaz MD [address] [place] [address] [address] [place] [address] Gastroenterology 02/14/25 documented as of this encounter Additional Source Comments The information contained in this document represents components of the legal health record. It is not the complete legal health record.[facility]
--- OUTSIDE RECORDS SUMMARY | 2025-05-21 18:18 | XMS_ITS | Encounter Summary ---
Author Organization [facility] Address [address] [facility] [address] [place] [address] Phone Care Team Providers Care Casualty Claim Adjuster Name Role Phone Faye Avelar MD Primary Care Provider Shagufta Bhakta MD, PhD Unavailable [phone] Waqas Diaz MD Unavailable [phone] Encounter Details Date Type Department Care Team (Late st Contact Info) Description 09/22/2023 Procedure Pass [facility] Cardiac Ultrasound [address] [place] [address] Social History Tobacco Use Types Packs/Day Years [...] st Contact Info) Description 04/03/2025 [facility] 32 [facility], 5th Floor, [address] [place] [address] 04/03/2025 Procedure Pass [facility] 52 [facility], [address] [place] [address] 06/06/2025 8:30 AM EST [facility]ointment [facility] 32 [facility], 5th Floor, [address] [place] [address] Shagufta Bhakta MD, PhD [address] [address] DIANA@[facility] 06/21/2025 8:00 AM EST Appointment [facility] 52 [facility], [address] [place] [address] Shagufta Bhakta MD, PhD [address] [address] DIANA@[facility] 07/04/2025 9:30 AM EST Office Visit [facility] at [facility] 32 [facility], 5th Floor, [address] [place] [address] Shagufta Bhakta MD, PhD [address] [address] DIANA@[facility] documented as of this encounter Visit Diagnoses Not on filedocumented in this encounter Care Teams Casualty Claim Adjuster Relationship Specialty Start Date End Date Faye Avelar MD [address] [facility] [place] [address] PCP - General Internal Medicine 09/19/23 Shagufta Bhakta MD, PhD [address] [address] DIANA@[facility] Construction Job Titles Interventional Cardiology 10/11/23 Waqas Diaz MD [address] [place] [address] [address] [place] [address] Gastroenterology 02/14/25 documented as of this encounter Additional Source Comments The information contained in this document represents components of the legal health record. It is not the complete legal health record.[facility]
--- OUTSIDE RECORDS SUMMARY | 2025-05-21 18:18 | XMS_ITS | Encounter Summary ---
Author Organization [facility] Address [address] [facility] [address] [place] [address] Phone Care Team Providers Care Acds Block 1 Operator Name Role Phone Faye Avelar MD Primary Care Provider Shagufta Bhakta MD, PhD Unavailable [phone] Waqas Diaz MD Unavailable [phone] Encounter Details Date Type Department Care Team (Late st Contact Info) Description 06/26/2024 Procedure Pass [facility] PERIOPERATIVE DEPT [address] [place] [id number] Social History Tobacco Use Types Packs/Day Years [...] st Contact Info) Description 04/03/2025 [facility] 32 [facility], 5th Floor, [address] [place] [address] 04/03/2025 Procedure Pass [facility] 52 [facility], [address] [place] [address] 06/06/2025 8:30 AM EST [facility]ment [facility] [address], 5th Floor, [address] [place] [address] Shagufta Bhakta MD, PhD [address] [address] DIANA@[email or web address] 06/21/2025 8:00 AM EST Appointment [address], [address] [place] [address] Shagufta Bhakta MD, PhD [address] [address] DIANA@[facility] 07/04/2025 9:30 AM EST Office Visit [facility] Interventional Cardiology Clinic at the [facility] 32 [facility], 5th Floor, [address] [place] [address] Shagufta Bhakta MD, PhD [address] [address] DIANA@[facility] documented as of this encounter Visit Diagnoses Not on filedocumented in this encounter Care Teams Acds Block 1 Operator Relationship Specialty Start Date End Date Faye Avelar MD [address] [place] [address] PCP - General Internal Medicine 09/19/23 Shagufta Bhakta MD, PhD 55 [facility] 800 [place] [address] DIANA@[email or web address] Varnishing Machine Operator Interventional Cardiology 10/11/23 Waqas Diaz MD [address] [place] [address] Drive [address] [place] [address] Gastroenterology 02/14/25 documented as of this encounter Additional Source Comments The information contained in this document represents components of the legal health record. It is not the complete legal health record.[facility]
--- OUTSIDE RECORDS SUMMARY | 2025-05-21 18:18 | XMS_ITS | Encounter Summary ---
Author Organization [facility] Address [address] [facility] [address] [place] [address] Phone Care Team Providers Care Backend Tester Name Role Phone Faye Avelar MD Primary Care Provider [phone] Shagufta Bhakta MD, PhD Unavailable [phone] Waqas Diaz MD Unavailable [phone] Encounter Details Date Type Department Care Team ([facility] st Contact Info) Description 11/29/2024 Telephone VIRTUAL DEPARTMENT [address] [place] [phone] Natalie Acosta MD [address] [place] [address] [email or web address] Social History Tobacco Use Types Packs/Day [...] st Contact Info) Description 04/03/2025 Procedure Pass [facility] 32 [facility], 5th Floor, [address] [place] [address] 04/03/2025 Procedure Pass [facility] 52 [facility], [address] [place] [address] 06/06/2025 8:30 AM EST Appointment [facility] 32 [facility], 5th Floor, [address] [place] [address] Shagufta Bhakta MD, PhD [address] [address] DIANA@[facility] 06/21/2025 8:00 AM EST Appointment [facility] [address] [facility], [address] [place] [address] Shagufta Bhakta MD, PhD [address] [address] DIANA@[facility] 07/04/2025 9:30 AM EST Office Visit [facility] Interventional Cardiology Clinic at the [facility] [address] [facility], 5th Floor, [address] [place] [address] Shagufta Bhakta MD, PhD [address] [address] DIANA@[facility] documented as of this encounter Visit Diagnoses Not on filedocumented in this encounter Care Teams Backend Tester Relationship Specialty Start Date End Date Faye Avelar MD [address] [place] [address] PCP - General Internal Medicine 09/19/23 Shagufta Bhakta MD, PhD 55 [facility] 800 [place] [address] [email or web address] Tobacco Roller Interventional Cardiology 10/11/23 Waqas Diaz MD [address] [place] [address] [place] [address] Gastroenterology 02/14/25 documented as of this encounter Additional Source Comments The information contained in this document represents components of the legal health record. It is not the complete legal health record.[facility]
--- OUTSIDE RECORDS SUMMARY | 2025-05-21 18:18 | XMS_ITS | Encounter Summary ---
Author Organization [facility] Address [address] [facility] [address] [place] [address] Phone Care Team Providers Care Customs Entry Clerk Name Role Phone Faye Aevlar MD Primary Care Provider Shagufta Bhakta MD, PhD Unavailable [phone] Waqas Diaz MD Unavailable Encounter Details Date Type Department Care Team ([facility] st Contact Info) Description 03/27/2024 Telephone VIRTUAL DEPARTMENT [address] [place] [phone] Natalie Acosta MD [address] [place] [address] [email or web address] Social History Tobacco Use [...] st Contact Info) Description 04/03/2025 Procedure Pass [facility] [address] [facility], 5th Floor, [address] [place] [address] 04/03/2025 Procedure Pass [facility] 52 [facility], [address] [place] [address] 06/06/2025 8:30 AM EST Appointment [facility] [address] [facility], 5th Floor, [address] [place] [address] Shagufta Bhakta MD, PhD [address] [address] DIANA@[facility] 06/21/2025 8:00 AM EST Appointment [facility] [address] [facility], [address] [place] [address] Shagufta Bhakta MD, PhD [address] [address] DIANA@[facility] 07/04/2025 9:30 AM EST Office Visit [facility] Interventional Cardiology Clinic at the [facility] [address] [facility], 5th Floor, [address] [place] [address] Shagufta Bhakta MD, PhD [address] [address] DIANA@[facility] documented as of this encounter Visit Diagnoses Not on filedocumented in this encounter Care Teams Customs Entry Clerk Relationship Specialty Start Date End Date Faye Avelar MD [address] [facility] [place] [address] PCP - General Internal Medicine 09/19/23 Shagufta Bhakta MD, PhD 55 [facility] 800 [place] [address] DIANA@[email or web address] Clinical Rehab Specialist Interventional Cardiology 10/11/23 Waqas Diaz MD [address] [place] [address] [place] [address] Gastroenterology 02/14/25 documented as of this encounter Additional Source Comments The information contained in this document represents components of the legal health record. It is not the complete legal health record.[facility]
== END 2025-05-21 14:39 | disposition home or self-care (01) ==
LOC: HO.HMGCLDS 14:38
PROVIDERS: PCP Internal Medicine; Visit Provider Internal Medicine
DX: D50.9 Iron deficiency anemia, unspecified (principal)
CPT/HCPCS: 36415; 85025